=== PATIENT | female | born 1945 | race Caucasian/White ===

== ENCOUNTER → 2017-10-15 14:00 | Outpatient (CLI) | payer MEDICARE, BC, SELFPAY ==
[2017-10-15 17:34] LABS: Absolute Lymphocyte Count 2.56 X10^3/ul (0.83-4.51); Absolute Neutrophil Count 7.6 X10^3/uL (2.0-7.7); Basophil# 0.02 X10^3/uL; Basophil% 0.2 % (0-1); Eosinophil# 0.27 X10^3/uL; Eosinophils% 2.4 % (0-5); Hematocrit 40.5 % (37-47); Hemoglobin 13.1 g/dl (12.0-15.0); Lymphocyte # 2.56 X10^3/ul (4.0); Lymphocyte % 22.6 % (19-41); Mean Corp Hgb Conc 32.3 g/gl (32-36); Mean Corpuscular Hgb 30.8 pg (27.0-32.0); Mean Corpuscular Volume 95.3 fL (81-99); Mean Platelet Vol. 10.9 fl (6.2-12.0); Monocyte# 0.87 X10^3/uL; Monocyte% 7.7 % (0-10); Neutrophil # 7.58 X10^3/uL (2.7-7.7); Neutrophil % 66.7 % (47-70); Platelet Count 285 K/mm3 (150-450); RBC Distribution Width CV 14.5 % (11.6-14.6); Red Blood Count 4.25 M/mm3 (4.2-5.4); White Blood Count 11.3 K/mm3 (4.4-11.0)
[2017-10-15 17:35] LABS: POSITIVE COUNT NO; POSITIVE DIFFERENTIAL NO; POSITIVE MORPHOLOGY NO
[2017-10-15 17:59] LABS: ALB/GLOB Ratio 0.9 RATIO (0.9-2.4); AST(SGOT) 18 U/L (15-37); Alanine Aminotransfer ALT/SGPT 33 U/L (13-56); Albumin, Serum 3.5 g/dL (3.2-5.0); Alkaline Phosphatase 69 U/L (45-117); Anion Gap 8 (5-15); BUN 10 mg/dL (7-18); BUN/Creat Ratio 12.4 RATIO (10-20); Calcium,Total 8.5 mg/dL (8.5-10.1); Chloride 101 mmol/L (98-107); Creatinine, Serum 0.81 mg/dL (0.55-1.02); EST Glomerular Filtration Rate 74 mL/min (>60); Est Glom Filt Rate - Afr Amer 90 mL/min (>60); Globulin 4.1 g/dL (2.2-4.2); Glucose 81 mg/dL (74-106); Potassium 4.1 mmol/L (3.5-5.1); Protein, Total 7.6 g/dL (6.4-8.2); Sodium Level 133 mmol/L (136-145)
[2017-10-16 10:08] LABS: Vitamin D,25 Hydroxy 15.5 ng/mL (29.95-100.01)
== END ==
PROVIDERS: Family Provider Family Medicine Geriatric Medicine; PCP Family Medicine Geriatric Medicine; Visit Provider Family Medicine Geriatric Medicine
DX: E55.9 Vitamin D deficiency, unspecified (principal); R53.83 Other fatigue
CPT/HCPCS: 36415; 80053; 82306; 84443; 85025

== ENCOUNTER → 2017-11-03 15:14 | Outpatient (CLI) | payer MEDICARE, BC, SELFPAY | PROVIDERS: Family Provider Family Medicine Geriatric Medicine; PCP Family Medicine Geriatric Medicine; Visit Provider Family Medicine Geriatric Medicine | DX: R68.83 Chills (without fever) (principal) | CPT/HCPCS: 87633 ==

== ENCOUNTER → 2018-01-06 15:02 | Outpatient (CLI) | payer MEDICARE, BC, SELFPAY ==
--- NOTE | 2018-01-06 15:15 | RAD_ITS ---
STUDY: X-RAY - LUMBAR SPINE REASON FOR EXAM: Female, 72 years old. Chronic back pain. History of osteoporosis and prior vertebroplasty. TECHNIQUE: 3 view(s) of the lumbar spine were obtained. COMPARISON: Comparison is made with prior examination dated November 04, 2016. FINDINGS: Normal lumbar lordosis. There is no substantial scoliosis. There is a normal alignment of the vertebrae. There is generalized demineralization of the vertebral bodies. Once again, multilevel kyphoplasty is seen. Stable loss of height of the superior endplate of the L2 vertebrae. Since prior study, vertebroplasty has been performed in several lower thoracic vertebrae. There is atherosclerotic calcification of the abdominal aorta without a demonstrated aneurysm. RAD/Lumbar Spine 2 or 3 Views IMPRESSION: Multilevel vertebroplasty with loss of height of several thoracic and lumbar vertebrae. Electronically Signed: Leonides Manriquez MD at 10:29 EDT Tel [phone], Service support ,
== END ==
PROVIDERS: Family Provider Family Medicine Geriatric Medicine; PCP Family Medicine Geriatric Medicine; Referring Provider Family Medicine Geriatric Medicine; Visit Provider Family Medicine Geriatric Medicine
DX: M54.5 Low back pain (principal); N39.0 Urinary tract infection, site not specified
CPT/HCPCS: 72100; 87086; 87088

== ENCOUNTER → 2018-06-21 15:27 | Outpatient (CLI) | payer MEDICARE, BC, SELFPAY | PROVIDERS: Family Provider Family Medicine Geriatric Medicine; PCP Family Medicine Geriatric Medicine; Visit Provider Family Medicine Geriatric Medicine | DX: L03.119 Cellulitis of unspecified part of limb (principal); B95.62 Methicillin resistant Staphylococcus aureus infection as the cause of diseases classified elsewhere | CPT/HCPCS: 87070; 87205 ==

== ENCOUNTER → 2018-07-15 | Outpatient (CLI) | payer MEDICARE, BC, SELFPAY ==
[2018-07-09 10:30] VITALS: BMI 33.0
[2018-07-15 12:29] LABS: Absolute Lymphocyte Count 2.29 X10^3/ul (0.83-4.51); Absolute Neutrophil Count 6.7 X10^3/uL (2.0-7.7); Basophil# 0.05 X10^3/uL; Basophil% 0.5 % (0-1); Eosinophils% 4.7 % (0-5); Hematocrit 38.4 % (37-47); Hemoglobin 12.5 g/dl (12.0-15.0); Lymphocyte # 2.29 X10^3/ul (4.0); Lymphocyte % 21.5 % (19-41); Mean Corp Hgb Conc 32.6 g/gl (32-36); Mean Corpuscular Hgb 30.2 pg (27.0-32.0); Mean Corpuscular Volume 92.8 fL (81-99); Mean Platelet Vol. 10.8 fl (6.2-12.0); Monocyte# 1.06 X10^3/uL; Monocyte% 9.9 % (0-10); Neutrophil % 62.8 % (47-70); Platelet Count 318 K/mm3 (150-450); RBC Distribution Width CV 15.1 % (11.6-14.6); RBC Distribution Width SD 49.3 fl (35.1-43.9); Red Blood Count 4.14 M/mm3 (4.2-5.4); White Blood Count 10.7 K/mm3 (4.4-11.0)
[2018-07-15 12:32] LABS: POSITIVE COUNT NO; POSITIVE DIFFERENTIAL NO; POSITIVE MORPHOLOGY NO
[2018-07-15 12:47] LABS: Vitamin D,25 Hydroxy 18.1 ng/mL (29.95-100.01)
[2018-07-15 12:52] LABS: ALB/GLOB Ratio 1.1 RATIO (0.9-2.4); AST(SGOT) 21 U/L (15-37); Alanine Aminotransfer ALT/SGPT 33 U/L (13-56); Albumin, Serum 3.8 g/dL (3.2-5.0); Alkaline Phosphatase 67 U/L (45-117); Anion Gap 6 (5-15); BUN 10 mg/dL (7-18); BUN/Creat Ratio 14.5 RATIO (10-20); Calcium,Total 8.8 mg/dL (8.5-10.1); Chloride 101 mmol/L (98-107); Creatinine, Serum 0.69 mg/dL (0.55-1.02); EST Glomerular Filtration Rate 89 mL/min (>60); Est Glom Filt Rate - Afr Amer 107 mL/min (>60); Globulin 3.5 g/dL (2.2-4.2); Glucose 92 mg/dL (74-106); Potassium 3.9 mmol/L (3.5-5.1); Protein, Total 7.3 g/dL (6.4-8.2); Sodium Level 135 mmol/L (136-145); Thyroid Stim Hormone (TSH) 0.96 uIU/mL (0.358-3.74)
== END | disposition home or self-care (01) ==
LOC: POLAB3 11:23
PROVIDERS: Family Provider Family Medicine Geriatric Medicine; PCP Family Medicine Geriatric Medicine; Visit Provider Family Medicine Geriatric Medicine
DX: E55.9 Vitamin D deficiency, unspecified (principal); R53.83 Other fatigue
CPT/HCPCS: 36415; 80053; 82306; 84443; 85025

== ENCOUNTER 2018-07-16 10:00 | Outpatient (RCR) | payer MEDICARE, BC, SELFPAY ==
[2018-07-02 10:34] VITALS: BP 127/89; PULSE 101; RESP 18; TEMP 37.2; BMI 33.0
--- NOTE | 2018-07-02 11:20 | HP.PCM_ITS ---
(1) Factor 5 Leiden mutation, heterozygous Status: Acute Current Visit: Yes Code(s): D68.51 - Activated protein C resistance (2) Nonhealing nonsurgical wound with fat layer exposed Status: Acute Current Visit: Yes Code(s): T14.8XXA - Other injury of unspecified body region, initial encounter (3) Traumatic open wound of left lower leg with delayed healing Status: Acute Current Visit: Yes Code(s): S81.802D - Unspecified open wound, left lower leg, subsequent encounter History of Present Illness Date of Service: 07/02/18 Chief Complaint: Follow-up of a traumatic left lower leg wound nonhealing since June 07. 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 He is on warfarin for factor V and DVTs. She was seen by Dr. Pete and he gave her IV antibiotics after cultures were negative for MRSA and she is now currently taking 2 antibiotics and using povidone iodine on the wound. Patient denies pain or infection skin around the area looks good. Past Medical History Past Medical History: Chronic Problems (Last Updated 08/06/17 @ 08:44 by Corrina Kiser) HLD (hyperlipidemia) (Chronic) Borderline diabetes (Chronic) Obesity (Chronic) DM2 (diabetes mellitus, type 2) (Chronic) Depression (Chronic) Past Medical History: Traumatic wound left lateral lower leg Surgical History: appendectomy, hysterectomy, - - Kyphoplasty plasty and vertebroplasty from osteoporosis Allergies/Adverse Reactions: Allergies castor oil Allergy (Verified 12/17/16 12:02) Unknown frovatriptan succinate [From Frova] Allergy (Verified 12/17/16 12:02) Rash sumatriptan [From Imitrex] Allergy (Verified 12/17/16 12:02) Rash sumatriptan succinate [From Imitrex] Allergy (Verified 12/17/16 12:02) Rash vitamin E (d-alpha tocopherol) Allergy (Verified 07/02/18 10:38) Chest tightness VITAMIN E IV SOLUTION IVP DYE Allergy (Uncoded 12/17/16 12:02) Vomiting Home Medications: Ambulatory Orders Medication Instructions Recorded Clonazepam 0.5 mg PO QHS 10/13/13 Ergocalciferol [Vitamin D] 50,000 unit PO QMONTH 10/13/13 Vitamin B Complex 1 each PO DAILY 10/13/13 Vitamin E 400 units PO DAILY 10/13/13 Warfarin [Coumadin] 4.5 mg PO QODAY 10/13/13 Warfarin [Coumadin] 5 mg PO QODAY 10/13/13 proMETHazine tablet [Phenergan] 25 mg PO Q8H PRN PRN 12/17/16 Lives: Alone Smoking Status: Former smoker Tobacco Use: Non-smoker Alcohol: None Drugs: None Review of Systems Constitutional: Denies: Chills, Fever Eyes: Denies: Blurred vision, Drainage, Pain HEENT: Denies: Difficulty Hearing, Difficulty Swallowing, Sore Throat, Visual Changes Cardiovascular: Denies: Chest Pain, Palpitations, Syncope Respiratory: Denies: Cough, Shortness of Breath Gastrointestinal: Denies: Abdominal Pain, Nausea, Vomiting Genitourinary: Denies: Dysuria, Frequency Musculoskeletal: Denies: Joint Pain, Muscle pain Skin: Reports: Wounds - Open wound left lateral lower leg. Denies: Jaundice, Rash Neurological: Denies: Balance problems, Change in Speech, Difficulty swallowing, Focal weakness Psychiatric: Denies: Anxiety, Depression Endocrine: Denies: Change in Body Habitus Hematologic/ Lymphatic: Denies: Adenopathy - Physical Exam Vital Signs Temp Pulse Resp BP 98.9 F 101 H 18 127/89 H 07/02/18 10:34 07/02/18 10:34 07/02/18 10:34 07/02/18 10:34 General: Oriented x3, Cooperative, Well developed HEENT: Atraumatic, PERRLA Oral: Moist Mucosa Neck: Supple, No JVD Lungs: Clear to auscultation, Normal air movement Cardiovascular: Regular rate, Regular Rhythm Abdomen: Bowel Sounds Present, Soft, Non Tender, No Hepato-splenomegaly Extremities: No clubbing, No edema, - - Open wound left lateral lower leg Wound Measurements and Assessment WC - Nurse 1 - General Ulcer Measurement Start: 07/02/18 10:34 Freq: Status: Active Protocol: Activity Type Activity Date Activity User E-Sign Co-Sign Detail Recorded Client Recorded Date Recorded By Document 07/02/18 10:34 [facility] [id number] 07/02/18 10:42 [facility] 07/02/18 10:34 Wound Center Nurse 1 [Ulcer Assessment] #1- LT LAT LE -Combined with other wound No -Current Size (cm) - Length 2 -Current Size (cm) - Width 1.6 -Current Size (cm) - Depth 0.1 -Total Square Cm 3.2 -Date of Last Picture (Recall this 07/02/18 field) -Photo Taken Yes -Epithelialization None Present -Tunneling No -Undermining/Tunneling No -Circular Undermining No -Classification - Thickness Full Thickness without Exposed Support Structure -Exudate Amt Small -Exudate Type Serosanguineous -Wound Margin Flat & Intact -Granulation Amt Small (1-33%) -Granulation Quality Red -Slough/Fibrin Yes -Necrosis Amt Large (67-100%) -Necrotic Tissue Type Adherent Slough -Texture (So-wound Skin Appearance) Assessed Scarring -Moisture (So-wound Skin Appearance Assessed ) -Color (So-wound Skin Appearance) Assessed Erythema -Temperature (So-wound Skin No Abnormality Appearance) (Pt Warm) -Tenderness on Palpation (So-wound No Skin Appearance) -Ulcer Cleansing Rinsed/ Irrigated with Saline -Foul Odor after Cleansing No -Anesthetic Used 5% Lidocaine Gel [Edema Assessment] -Lower Limb Edema Present Yes -Right Calf (cm) 36 -Right Ankle (cm) 19.5 -Left Calf (cm) 35 -Left Ankle (cm) 19.2 WC - Nurse 2 - General Ulcer CM Notes Start: 07/02/18 10:34 Freq: Status: Active Protocol: Activity Type Activity Date Activity User E-Sign Co-Sign Detail Recorded Client Recorded Date Recorded By Document 07/02/18 10:56 MW [id number] 07/02/18 11:00 MW 07/02/18 10:56 Wound Center Nurse 2 [Procedure/Treatment] #1- LT LAT LE -Time 10:57 -Correct Patient Yes -Correct Side, Site, Position Yes -Correct Procedure Yes -Procedure Performed Yes -Type of Procedure Debridement -Clinical Debridement Subcutaneous -Post Debridement Size (cm) - Length 2.0 -Post Debridement Size (cm) - Width 1.5 -Post Debridement Size (cm) - Depth 0.2 -Total Square Cm 3.00 -Wound/Ulcer Outcome Not Healed -Ulcer Cleansing Rinsed/ Irrigated with Saline -Foul Odor after Cleansing No -Bioengineered Tissue No -Bleeding Controlled with Pressure -Offloading No -Treatment Response Procedure Tolerated Well [See Physician Procedure note for Specifics] Pain Scale: 0-10 Numeric [Pain] -Is Patient Pain Free? Yes Musculoskeletal: No Tenderness to Palpation of Joints or Extremities Lymphatic: No Cervical, Supraclavicular, or Inguinal Adenopathy Neurological: Cranial nerves II-XII grossly intact, Neuro grossly intact Psych/Mental Status: Normal Affect, Appropriate, Alert and oriented to time, place, person, mood and affect Debridement Note Post-Debridement Measurements/Treatment WC - Nurse 2 - General Ulcer CM Notes Start: 07/02/18 10:34 Freq: Status: Active Protocol: Activity Type Activity Date Activity User E-Sign Co-Sign Detail Recorded Client Recorded Date Recorded By Document 07/02/18 10:56 MW [id number] 07/02/18 11:00 MW 07/02/18 10:56 Wound Center Nurse 2 #1- LT LAT LE -Time 10:57 -Correct Patient Yes -Correct Side, Site, Position Yes -Correct Procedure Yes -Procedure Performed Yes -Type of Procedure Debridement -Clinical Debridement Subcutaneous -Post Debridement Size (cm) - Length 2.0 -Post Debridement Size (cm) - Width 1.5 -Post Debridement Size (cm) - Depth 0.2 -Total Square Cm 3.00 -Wound/Ulcer Outcome Not Healed -Ulcer Cleansing Rinsed/ Irrigated with Saline -Foul Odor after Cleansing No -Bioengineered Tissue No -Bleeding Controlled with Pressure -Offloading No -Treatment Response Procedure Tolerated Well Pain Scale: 0-10 Numeric Is Patient Pain Free? Yes Wound debrided: Left lateral lower leg Type of Debridement: Excisional debridement Anesthesia Used: 4% Lidocaine Solution Depth: Down to and including healthy tissue, in the subcutaneous layer Percentage of wound debrided: 100 Instrument Used: 5mm curette Tissue Removed: Devitalized tissue and slough Severity: Limited To Skin Breakdown Amount of bleeding with debridement: Mild Bleeding Controlled with: Compression and gauze Patient tolerated procedure well Assessment/Plan Active Problems (Last Updated 08/06/17 @ 08:44 by Corrina Kiser) Factor 5 Leiden mutation, heterozygous (Acute) Nonhealing nonsurgical wound with fat layer exposed (Acute) Traumatic open wound of left lower leg with delayed healing (Acute) Assessment: Nonhealing traumatic left lower leg wound. Factor V. Long-term Coumadin. Osteoporosis Plan: Wash leg with Hibiclens and wound. Apply Nehal to the wound base cover with Adaptic gauze and tape daily. Double layer Tubigrip to the left leg. Follow-up in 1 week
[2018-07-09 10:30] VITALS: BP 148/96; PULSE 77; RESP 16; TEMP 36.5; BMI 33.0
--- NOTE | 2018-07-09 11:26 | PCM.WC.PN ---
(1) Factor 5 Leiden mutation, heterozygous Status: Acute Current Visit: Yes Code(s): D68.51 - Activated protein C resistance (2) Nonhealing nonsurgical wound with fat layer exposed Status: Acute Current Visit: Yes Code(s): T14.8XXA - Other injury of unspecified body region, initial encounter (3) Traumatic open wound of left lower leg with delayed healing Status: Acute Current Visit: Yes Code(s): S81.802D - Unspecified open wound, left lower leg, subsequent encounter (4) Edema of left lower leg due to peripheral venous insufficiency Status: Acute Current Visit: Yes Code(s): I87.2 - Venous insufficiency (chronic) (peripheral); R60.0 - Localized edema (5) Ulcer of right medial lower extremity, limited to breakdown of skin Status: Acute Current Visit: Yes Code(s): L97.811 - Non-pressure chronic ulcer of other part of right lower leg limited to breakdown of skin Type of Wound Chief Complaint: Follow-up of a traumatic left lower leg wound nonhealing since June 07. 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 He is on warfarin for factor V and DVTs. She was seen by Dr. Pete and he gave her IV antibiotics after cultures were negative for MRSA and she is now currently taking 2 antibiotics and using povidone iodine on the wound. Patient denies pain or infection skin around the area looks good. Progress of Wound: The wound is smaller this week and no signs of infection she did complain of increase in pain over the last 2 days. Will add double layer Tubigrip to the left lower leg for more support. We did apply for epi-fix. - Physical Exam Vital Signs Temp Pulse Resp BP 97.7 F L 77 16 148/96 H 07/09/18 10:30 07/09/18 10:30 07/09/18 10:30 07/09/18 10:30 General: Oriented x3, Cooperative, Well developed HEENT: Atraumatic, PERRLA Oral: Moist Mucosa Neck: Supple, No JVD Lungs: Clear to auscultation, Normal air movement Cardiovascular: Regular rate, Regular Rhythm Abdomen: Bowel Sounds Present, Soft, Non Tender, No Hepato-splenomegaly Extremities: No clubbing, Edema Skin: Ulcer/ Wound - Left lower leg ulcer Wound Measurements and Assessment WC - Nurse 1 - General Ulcer Measurement Start: 07/02/18 10:34 Freq: Status: Active Protocol: Activity Type Activity Date Activity User E-Sign Co-Sign Detail Recorded Client Recorded Date Recorded By Document 07/09/18 10:30 BMF [id number] 07/09/18 10:36 BM[facility] 07/09/18 10:30 Wound Center Nurse 1 [Ulcer Assessment] #1- LT LAT LE -Combined with other wound No -Current Size (cm) - Length 1.7 -Current Size (cm) - Width 1.3 -Current Size (cm) - Depth 0.1 -Total Square Cm 2.21 -Photo Taken No -Epithelialization Small 1-33% -Tunneling No -Undermining/Tunneling No -Circular Undermining No -Exudate Amt Small -Exudate Type Serous -Wound Margin Flat & Intact -Granulation Amt Small (1-33%) -Granulation Quality Red -Slough/Fibrin Yes -Necrosis Amt Medium (34-66%) -Necrotic Tissue Type Adherent Slough -Texture (So-wound Skin Appearance) Assessed Scarring -Moisture (So-wound Skin Appearance Assessed ) Dry/Scaly -Color (So-wound Skin Appearance) Assessed Erythema -Temperature (So-wound Skin No Abnormality Appearance) (Pt Warm) -Tenderness on Palpation (So-wound No Skin Appearance) -Ulcer Cleansing Rinsed/ Irrigated with Saline -Foul Odor after Cleansing No -Anesthetic Used 5% Lidocaine Gel [Edema Assessment] -Lower Limb Edema Present Yes -Left Calf (cm) 34 -Left Ankle (cm) 18.7 WC - Nurse 2 - General Ulcer CM Notes Start: 07/02/18 10:34 Freq: Status: Active Protocol: Activity Type Activity Date Activity User E-Sign Co-Sign Detail Recorded Client Recorded Date Recorded By Document 07/09/18 10:56 MW [id number] 07/09/18 10:59 MW 07/09/18 10:56 Wound Center Nurse 2 [Procedure/Treatment] #1- LT LAT LE -Time 10:56 -Correct Patient Yes -Correct Side, Site, Position Yes -Correct Procedure Yes -Procedure Performed Yes -Type of Procedure Debridement -Clinical Debridement Subcutaneous -Post Debridement Size (cm) - Length 1.5 -Post Debridement Size (cm) - Width 1.0 -Post Debridement Size (cm) - Depth 0.2 -Total Square Cm 1.50 -Wound/Ulcer Outcome Not Healed -Ulcer Cleansing Rinsed/ Irrigated with Saline -Foul Odor after Cleansing No -Bioengineered Tissue No -Bleeding Controlled with Pressure -Offloading No -Treatment Response Procedure Tolerated Well [See Physician Procedure note for Specifics] Pain Scale: 0-10 Numeric [Pain] -Is Patient Pain Free? Yes Musculoskeletal: No Tenderness to Palpation of Joints or Extremities Lymphatic: No Cervical, Supraclavicular, or Inguinal Adenopathy Neurological: Cranial nerves II-XII grossly intact, Neuro grossly intact Psych/Mental Status: Normal Affect, Appropriate Debridement Note Post-Debridement Measurements/Treatment WC - Nurse 2 - General Ulcer CM Notes Start: 07/02/18 10:34 Freq: Status: Active Protocol: Activity Type Activity Date Activity User E-Sign Co-Sign Detail Recorded Client Recorded Date Recorded By Document 07/02/18 10:56 MW [id number] 07/02/18 11:00 MW Document 07/09/18 10:56 MW [id number] 07/09/18 10:59 MW 07/02/18 07/09/18 10:56 10:56 Wound Center Nurse 2 #1- LT LAT LE -Time 10:57 10:56 -Correct Patient Yes Yes -Correct Side, Site, Position Yes Yes -Correct Procedure Yes Yes -Procedure Performed Yes Yes -Type of Procedure Debridement Debridement -Clinical Debridement Subcutaneous Subcutaneous -Post Debridement Size (cm) - Length 2.0 1.5 -Post Debridement Size (cm) - Width 1.5 1.0 -Post Debridement Size (cm) - Depth 0.2 0.2 -Total Square Cm 3.00 1.50 -Wound/Ulcer Outcome Not Healed Not Healed -Ulcer Cleansing Rinsed/ Rinsed/ Irrigated with Irrigated with Saline Saline -Foul Odor after Cleansing No No -Bioengineered Tissue No No -Bleeding Controlled with Pressure Pressure -Offloading No No -Treatment Response Procedure Procedure Tolerated Well Tolerated Well Pain Scale: 0-10 Numeric Is Patient Pain Free? Yes Yes Wound debrided: Of lower leg ulcer Type of Debridement: Excisional debridement Anesthesia Used: 5% Lidocaine Gel Depth: Down to and including healthy tissue, in the subcutaneous layer Percentage of wound debrided: 100 Instrument Used: 5mm curette, #10 blade Tissue Removed: Slough and devitalized tissue Severity: Limited To Skin Breakdown Amount of bleeding with debridement: Mild Bleeding Controlled with: Compression and gauze Patient tolerated procedure well Assessment/Plan Active Problems (Last Updated 08/06/17 @ 08:44 by Corrina Kiser) Factor 5 Leiden mutation, heterozygous (Acute) Nonhealing nonsurgical wound with fat layer exposed (Acute) Traumatic open wound of left lower leg with delayed healing (Acute) Edema of left lower leg due to peripheral venous insufficiency (Acute) Ulcer of right medial lower extremity, limited to breakdown of skin (Acute) Assessment: Nonhealing traumatic left lower leg wound. Factor V. Long-term Coumadin. Osteoporosis Plan: Wash leg with Hibiclens and wound. Apply Nehal to the wound base cover with Adaptic gauze and tape daily. Double layer Tubigrip to the left leg. Follow-up in 1 week
--- NOTE | 2018-07-09 11:30 | PN.PCM_ITS ---
(1) Factor 5 Leiden mutation, heterozygous Status: Acute Current Visit: Yes Code(s): D68.51 - Activated protein C resistance (2) Nonhealing nonsurgical wound with fat layer exposed Status: Acute Current Visit: Yes Code(s): T14.8XXA - Other injury of unspecified body region, initial encounter (3) Traumatic open wound of left lower leg with delayed healing Status: Acute Current Visit: Yes Code(s): S81.802D - Unspecified open wound, left lower leg, subsequent encounter (4) Edema of left lower leg due to peripheral venous insufficiency Status: Acute Current Visit: Yes Code(s): I87.2 - Venous insufficiency (chronic) (peripheral); R60.0 - Localized edema (5) Ulcer of right medial lower extremity, limited to breakdown of skin Status: Acute Current Visit: Yes Code(s): L97.811 - Non-pressure chronic ulcer of other part of right lower leg limited to breakdown of skin Type of Wound Chief Complaint: Follow-up of a traumatic left lower leg wound nonhealing since June 07. 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 He is on warfarin for factor V and DVTs. She was seen by Dr. Pete and he gave her IV antibiotics after cultures were negative for MRSA and she is now currently taking 2 antibiotics and using povidone iodine on the wound. Patient denies pain or infection skin around the area looks good. Progress of Wound: The wound is smaller this week and no signs of infection she did complain of increase in pain over the last 2 days. Will add double layer Tubigrip to the left lower leg for more support. We did apply for epi-fix. - Physical Exam Vital Signs Temp Pulse Resp BP 97.7 F L 77 16 148/96 H 07/09/18 10:30 07/09/18 10:30 07/09/18 10:30 07/09/18 10:30 General: Oriented x3, Cooperative, Well developed HEENT: Atraumatic, PERRLA Oral: Moist Mucosa Neck: Supple, No JVD Lungs: Clear to auscultation, Normal air movement Cardiovascular: Regular rate, Regular Rhythm Abdomen: Bowel Sounds Present, Soft, Non Tender, No Hepato-splenomegaly Extremities: No clubbing, Edema Skin: Ulcer/ Wound - Left lower leg ulcer Wound Measurements and Assessment WC - Nurse 1 - General Ulcer Measurement Start: 07/02/18 10:34 Freq: Status: Active Protocol: Activity Type Activity Date Activity User E-Sign Co-Sign Detail Recorded Client Recorded Date Recorded By Document 07/09/18 10:30 BMF [id number] 07/09/18 10:36 BMF 07/09/18 10:30 Wound Center Nurse 1 [Ulcer Assessment] #1- LT LAT LE -Combined with other wound No -Current Size (cm) - Length 1.7 -Current Size (cm) - Width 1.3 -Current Size (cm) - Depth 0.1 -Total Square Cm 2.21 -Photo Taken No -Epithelialization Small 1-33% -Tunneling No -Undermining/Tunneling No -Circular Undermining No -Exudate Amt Small -Exudate Type Serous -Wound Margin Flat & Intact -Granulation Amt Small (1-33%) -Granulation Quality Red -Slough/Fibrin Yes -Necrosis Amt Medium (34-66%) -Necrotic Tissue Type Adherent Slough -Texture (So-wound Skin Appearance) Assessed Scarring -Moisture (So-wound Skin Appearance Assessed ) Dry/Scaly -Color (So-wound Skin Appearance) Assessed Erythema -Temperature (So-wound Skin No Abnormality Appearance) (Pt Warm) -Tenderness on Palpation (So-wound No Skin Appearance) -Ulcer Cleansing Rinsed/ Irrigated with Saline -Foul Odor after Cleansing No -Anesthetic Used 5% Lidocaine Gel [Edema Assessment] -Lower Limb Edema Present Yes -Left Calf (cm) 34 -Left Ankle (cm) 18.7 WC - Nurse 2 - General Ulcer CM Notes Start: 07/02/18 10:34 Freq: Status: Active Protocol: Activity Type Activity Date Activity User E-Sign Co-Sign Detail Recorded Client Recorded Date Recorded By Document 07/09/18 10:56 MW [id number] 07/09/18 10:59 MW 07/09/18 10:56 Wound Center Nurse 2 [Procedure/Treatment] #1- LT LAT LE -Time 10:56 -Correct Patient Yes -Correct Side, Site, Position Yes -Correct Procedure Yes -Procedure Performed Yes -Type of Procedure Debridement -Clinical Debridement Subcutaneous -Post Debridement Size (cm) - Length 1.5 -Post Debridement Size (cm) - Width 1.0 -Post Debridement Size (cm) - Depth 0.2 -Total Square Cm 1.50 -Wound/Ulcer Outcome Not Healed -Ulcer Cleansing Rinsed/ Irrigated with Saline -Foul Odor after Cleansing No -Bioengineered Tissue No -Bleeding Controlled with Pressure -Offloading No -Treatment Response Procedure Tolerated Well [See Physician Procedure note for Specifics] Pain Scale: 0-10 Numeric [Pain] -Is Patient Pain Free? Yes Musculoskeletal: No Tenderness to Palpation of Joints or Extremities Lymphatic: No Cervical, Supraclavicular, or Inguinal Adenopathy Neurological: Cranial nerves II-XII grossly intact, Neuro grossly intact Psych/Mental Status: Normal Affect, Appropriate Debridement Note Post-Debridement Measurements/Treatment WC - Nurse 2 - General Ulcer CM Notes Start: 07/02/18 10:34 Freq: Status: Active Protocol: Activity Type Activity Date Activity User E-Sign Co-Sign Detail Recorded Client Recorded Date Recorded By Document 07/02/18 10:56 MW [id number] 07/02/18 11:00 MW Document 07/09/18 10:56 MW [id number] 07/09/18 10:59 MW 07/02/18 07/09/18 10:56 10:56 Wound Center Nurse 2 #1- LT LAT LE -Time 10:57 10:56 -Correct Patient Yes Yes -Correct Side, Site, Position Yes Yes -Correct Procedure Yes Yes -Procedure Performed Yes Yes -Type of Procedure Debridement Debridement -Clinical Debridement Subcutaneous Subcutaneous -Post Debridement Size (cm) - Length 2.0 1.5 -Post Debridement Size (cm) - Width 1.5 1.0 -Post Debridement Size (cm) - Depth 0.2 0.2 -Total Square Cm 3.00 1.50 -Wound/Ulcer Outcome Not Healed Not Healed -Ulcer Cleansing Rinsed/ Rinsed/ Irrigated with Irrigated with Saline Saline -Foul Odor after Cleansing No No -Bioengineered Tissue No No -Bleeding Controlled with Pressure Pressure -Offloading No No -Treatment Response Procedure Procedure Tolerated Well Tolerated Well Pain Scale: 0-10 Numeric Is Patient Pain Free? Yes Yes Wound debrided: Of lower leg ulcer Type of Debridement: Excisional debridement Anesthesia Used: 5% Lidocaine Gel Depth: Down to and including healthy tissue, in the subcutaneous layer Percentage of wound debrided: 100 Instrument Used: 5mm curette, #10 blade Tissue Removed: Slough and devitalized tissue Severity: Limited To Skin Breakdown Amount of bleeding with debridement: Mild Bleeding Controlled with: Compression and gauze Patient tolerated procedure well Assessment/Plan Active Problems (Last Updated 08/06/17 @ 08:44 by Corrina Kiser) Factor 5 Leiden mutation, heterozygous (Acute) Nonhealing nonsurgical wound with fat layer exposed (Acute) Traumatic open wound of left lower leg with delayed healing (Acute) Edema of left lower leg due to peripheral venous insufficiency (Acute) Ulcer of right medial lower extremity, limited to breakdown of skin (Acute) Assessment: Nonhealing traumatic left lower leg wound. Factor V. Long-term Coumadin. Osteoporosis Plan: Wash leg with Hibiclens and wound. Apply Nehal to the wound base cover with Adaptic gauze and tape daily. Double layer Tubigrip to the left leg. Follow-up in 1 week
[2018-07-16 10:28] VITALS: BP 158/67; PULSE 73; RESP 18; TEMP 37; BMI 33.0
--- NOTE | 2018-07-16 11:13 | PCM.WC.PN ---
(1) Factor 5 Leiden mutation, heterozygous Status: Chronic Current Visit: Yes Code(s): D68.51 - Activated protein C resistance (2) Nonhealing nonsurgical wound with fat layer exposed Status: Acute Current Visit: Yes Code(s): T14.8XXA - Other injury of unspecified body region, initial encounter (3) Traumatic open wound of left lower leg with delayed healing Status: Acute Current Visit: Yes Code(s): S81.802D - Unspecified open wound, left lower leg, subsequent encounter (4) Edema of left lower leg due to peripheral venous insufficiency Status: Acute Current Visit: Yes Code(s): I87.2 - Venous insufficiency (chronic) (peripheral); R60.0 - Localized edema (5) Ulcer of right medial lower extremity, limited to breakdown of skin Status: Acute Current Visit: Yes Code(s): L97.811 - Non-pressure chronic ulcer of other part of right lower leg limited to breakdown of skin Type of Wound Chief Complaint: Follow-up of a traumatic left lower leg wound nonhealing since June 07. 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 He is on warfarin for factor V and DVTs. She was seen by Dr. Pete and he gave her IV antibiotics after cultures were negative for MRSA and she is now currently taking 2 antibiotics and using povidone iodine on the wound. Patient denies pain or infection skin around the area looks good. Progress of Wound: The wound is smaller this week and no signs of infection she did complain of increase in pain over the last 2 days. Will add double layer Tubigrip to the left lower leg for more support. We applied #1 epi-fix. - Physical Exam Vital Signs Temp Pulse Resp BP 98.6 F 73 18 158/67 H 07/16/18 10:28 07/16/18 10:28 07/16/18 10:28 07/16/18 10:28 General: Oriented x3, Cooperative, Well developed HEENT: Atraumatic, PERRLA Oral: Moist Mucosa Neck: Supple, No JVD Lungs: Clear to auscultation, Normal air movement Cardiovascular: Regular rate, Regular Rhythm Abdomen: Bowel Sounds Present, Soft, Non Tender, No Hepato-splenomegaly Extremities: No clubbing, No edema Skin: - - Left lower leg ulcer from trauma Wound Measurements and Assessment WC - Nurse 1 - General Ulcer Measurement Start: 07/02/18 10:34 Freq: Status: Active Protocol: Activity Type Activity Date Activity User E-Sign Co-Sign Detail Recorded Client Recorded Date Recorded By Document 07/16/18 10:28 DV [id number] 07/16/18 10:34 DV 07/16/18 10:28 Wound Center Nurse 1 [Ulcer Assessment] #1- LT LAT LE -Combined with other wound No -Current Size (cm) - Length 1.0 -Current Size (cm) - Width 0.7 -Current Size (cm) - Depth 0.1 -Total Square Cm 0.70 -Photo Taken No -Epithelialization Small 1-33% -Tunneling No -Undermining/Tunneling No -Circular Undermining No -Wound Margin Flat & Intact -Granulation Amt Small (1-33%) -Granulation Quality Pale [place] -Slough/Fibrin Yes -Necrosis Amt Medium (34-66%) -Necrotic Tissue Type Adherent Slough -Structure Exposed None/Limited to Skin Breakdown -Texture (So-wound Skin Appearance) Assessed Localized Edema Scarring -Moisture (So-wound Skin Appearance Assessed ) Dry/Scaly -Color (So-wound Skin Appearance) Assessed Hemosiderin Staining -Temperature (So-wound Skin No Abnormality Appearance) (Pt Warm) -Ulcer Cleansing Rinsed/ Irrigated with Saline -Foul Odor after Cleansing No -Anesthetic Used 4% Lidocaine Solution [Edema Assessment] -Lower Limb Edema Present No -Left Calf (cm) 34.0 -Left Ankle (cm) 19.8 WC - Nurse 2 - General Ulcer CM Notes Start: 07/02/18 10:34 Freq: Status: Active Protocol: Activity Type Activity Date Activity User E-Sign Co-Sign Detail Recorded Client Recorded Date Recorded By Document 07/16/18 10:52 MW [id number] 07/16/18 10:57 MW 07/16/18 10:52 Wound Center Nurse 2 [Procedure/Treatment] #1- LT LAT LE -Time 10:52 -Correct Patient Yes -Correct Side, Site, Position Yes -Correct Procedure Yes -Procedure Performed Yes -Type of Procedure Debridement -Clinical Debridement Subcutaneous -Post Debridement Size (cm) - Length 1.1 -Post Debridement Size (cm) - Width 0.9 -Post Debridement Size (cm) - Depth 0.1 -Total Square Cm 0.99 -Wound/Ulcer Outcome Not Healed -Ulcer Cleansing Rinsed/ Irrigated with Saline -Foul Odor after Cleansing No -Bioengineered Tissue Yes -Type of bioengineered Tissue EPIFIX -Expiration Date 12/21/22 -Product Lot Number [id number] -Percent Used 100 -Saline Lot Number [id number] -Bleeding Controlled with Pressure -Offloading No -Treatment Response Procedure Tolerated Well [See Physician Procedure note for Specifics] Pain Scale: 0-10 Numeric [Pain] -Is Patient Pain Free? Yes Musculoskeletal: No Tenderness to Palpation of Joints or Extremities Lymphatic: No Cervical, Supraclavicular, or Inguinal Adenopathy Neurological: Cranial nerves II-XII grossly intact, Neuro grossly intact Psych/Mental Status: Normal Affect, Appropriate Debridement Note Post-Debridement Measurements/Treatment WC - Nurse 2 - General Ulcer CM Notes Start: 07/02/18 10:34 Freq: Status: Active Protocol: Activity Type Activity Date Activity User E-Sign Co-Sign Detail Recorded Client Recorded Date Recorded By Document 07/02/18 10:56 MW [id number] 07/02/18 11:00 MW Document 07/09/18 10:56 MW [id number] 07/09/18 10:59 MW Document 07/16/18 10:52 MW [id number] 07/16/18 10:57 MW 07/02/18 07/09/18 07/16/18 10:56 10:56 10:52 Wound Center Nurse 2 #1- LT LAT LE -Time 10:57 10:56 10:52 -Correct Patient Yes Yes Yes -Correct Side, Site, Position Yes Yes Yes -Correct Procedure Yes Yes Yes -Procedure Performed Yes Yes Yes -Type of Procedure Debridement Debridement Debridement -Clinical Debridement Subcutaneous Subcutaneous Subcutaneous -Post Debridement Size (cm) - Length 2.0 1.5 1.1 -Post Debridement Size (cm) - Width 1.5 1.0 0.9 -Post Debridement Size (cm) - Depth 0.2 0.2 0.1 -Total Square Cm 3.00 1.50 0.99 -Wound/Ulcer Outcome Not Healed Not Healed Not Healed -Ulcer Cleansing Rinsed/ Rinsed/ Rinsed/ Irrigated with Irrigated with Irrigated with Saline Saline Saline -Foul Odor after Cleansing No No No -Bioengineered Tissue No No Yes -Type of bioengineered Tissue EPIFIX -Expiration Date 12/21/22 -Product Lot Number [id number] -Percent Used 100 -Saline Lot Number [id number] -Bleeding Controlled with Pressure Pressure Pressure -Offloading No No No -Treatment Response Procedure Procedure Procedure Tolerated Well Tolerated Well Tolerated Well Pain Scale: 0-10 Numeric Is Patient Pain Free? Yes Yes Yes Wound debrided: Left lateral lower leg Type of Debridement: Excisional debridement Anesthesia Used: 5% Lidocaine Gel Depth: Down to and including healthy tissue Instrument Used: 5mm curette Tissue Removed: Fibrin and some devitalized tissue Severity: Limited To Skin Breakdown Amount of bleeding with debridement: Mild Bleeding Controlled with: Compression and gauze Patient tolerated procedure well Assessment/Plan Active Problems (Last Updated 08/06/17 @ 08:44 by Corrina Kiser) Factor 5 Leiden mutation, heterozygous (Chronic) Nonhealing nonsurgical wound with fat layer exposed (Acute) Traumatic open wound of left lower leg with delayed healing (Acute) Edema of left lower leg due to peripheral venous insufficiency (Acute) Ulcer of right medial lower extremity, limited to breakdown of skin (Acute) Assessment: Nonhealing traumatic left lower leg wound. Factor V. Long-term Coumadin. Osteoporosis Plan: Epi fix #1 applied. Patient to leave dressing alone for 1 week. Double layer Tubigrip to the left leg. Follow-up in 1 week
--- NOTE | 2018-07-16 11:16 | PN.PCM_ITS ---
(1) Factor 5 Leiden mutation, heterozygous Status: Chronic Current Visit: Yes Code(s): D68.51 - Activated protein C resistance (2) Nonhealing nonsurgical wound with fat layer exposed Status: Acute Current Visit: Yes Code(s): T14.8XXA - Other injury of unspecified body region, initial encounter (3) Traumatic open wound of left lower leg with delayed healing Status: Acute Current Visit: Yes Code(s): S81.802D - Unspecified open wound, left lower leg, subsequent encounter (4) Edema of left lower leg due to peripheral venous insufficiency Status: Acute Current Visit: Yes Code(s): I87.2 - Venous insufficiency (chronic) (peripheral); R60.0 - Localized edema (5) Ulcer of right medial lower extremity, limited to breakdown of skin Status: Acute Current Visit: Yes Code(s): L97.811 - Non-pressure chronic ulcer of other part of right lower leg limited to breakdown of skin Type of Wound Chief Complaint: Follow-up of a traumatic left lower leg wound nonhealing since June 07. 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 He is on warfarin for factor V and DVTs. She was seen by Dr. Pete and he gave her IV antibiotics after cultures were negative for MRSA and she is now currently taking 2 antibiotics and using povidone iodine on the wound. Patient denies pain or infection skin around the area looks good. Progress of Wound: The wound is smaller this week and no signs of infection she did complain of increase in pain over the last 2 days. Will add double layer Tubigrip to the left lower leg for more support. We applied #1 epi-fix. - Physical Exam Vital Signs Temp Pulse Resp BP 98.6 F 73 18 158/67 H 07/16/18 10:28 07/16/18 10:28 07/16/18 10:28 07/16/18 10:28 General: Oriented x3, Cooperative, Well developed HEENT: Atraumatic, PERRLA Oral: Moist Mucosa Neck: Supple, No JVD Lungs: Clear to auscultation, Normal air movement Cardiovascular: Regular rate, Regular Rhythm Abdomen: Bowel Sounds Present, Soft, Non Tender, No Hepato-splenomegaly Extremities: No clubbing, No edema Skin: - - Left lower leg ulcer from trauma Wound Measurements and Assessment WC - Nurse 1 - General Ulcer Measurement Start: 07/02/18 10:34 Freq: Status: Active Protocol: Activity Type Activity Date Activity User E-Sign Co-Sign Detail Recorded Client Recorded Date Recorded By Document 07/16/18 10:28 DV [id number] 07/16/18 10:34 DV 07/16/18 10:28 Wound Center Nurse 1 [Ulcer Assessment] #1- LT LAT LE -Combined with other wound No -Current Size (cm) - Length 1.0 -Current Size (cm) - Width 0.7 -Current Size (cm) - Depth 0.1 -Total Square Cm 0.70 -Photo Taken No -Epithelialization Small 1-33% -Tunneling No -Undermining/Tunneling No -Circular Undermining No -Wound Margin Flat & Intact -Granulation Amt Small (1-33%) -Granulation Quality Pale [place] -Slough/Fibrin Yes -Necrosis Amt Medium (34-66%) -Necrotic Tissue Type Adherent Slough -Structure Exposed None/Limited to Skin Breakdown -Texture (So-wound Skin Appearance) Assessed Localized Edema Scarring -Moisture (So-wound Skin Appearance Assessed ) Dry/Scaly -Color (So-wound Skin Appearance) Assessed Hemosiderin Staining -Temperature (So-wound Skin No Abnormality Appearance) (Pt Warm) -Ulcer Cleansing Rinsed/ Irrigated with Saline -Foul Odor after Cleansing No -Anesthetic Used 4% Lidocaine Solution [Edema Assessment] -Lower Limb Edema Present No -Left Calf (cm) 34.0 -Left Ankle (cm) 19.8 WC - Nurse 2 - General Ulcer CM Notes Start: 07/02/18 10:34 Freq: Status: Active Protocol: Activity Type Activity Date Activity User E-Sign Co-Sign Detail Recorded Client Recorded Date Recorded By Document 07/16/18 10:52 MW [id number] 07/16/18 10:57 MW 07/16/18 10:52 Wound Center Nurse 2 [Procedure/Treatment] #1- LT LAT LE -Time 10:52 -Correct Patient Yes -Correct Side, Site, Position Yes -Correct Procedure Yes -Procedure Performed Yes -Type of Procedure Debridement -Clinical Debridement Subcutaneous -Post Debridement Size (cm) - Length 1.1 -Post Debridement Size (cm) - Width 0.9 -Post Debridement Size (cm) - Depth 0.1 -Total Square Cm 0.99 -Wound/Ulcer Outcome Not Healed -Ulcer Cleansing Rinsed/ Irrigated with Saline -Foul Odor after Cleansing No -Bioengineered Tissue Yes -Type of bioengineered Tissue EPIFIX -Expiration Date 12/21/22 -Product Lot Number [id number] -Percent Used 100 -Saline Lot Number [id number] -Bleeding Controlled with Pressure -Offloading No -Treatment Response Procedure Tolerated Well [See Physician Procedure note for Specifics] Pain Scale: 0-10 Numeric [Pain] -Is Patient Pain Free? Yes Musculoskeletal: No Tenderness to Palpation of Joints or Extremities Lymphatic: No Cervical, Supraclavicular, or Inguinal Adenopathy Neurological: Cranial nerves II-XII grossly intact, Neuro grossly intact Psych/Mental Status: Normal Affect, Appropriate Debridement Note Post-Debridement Measurements/Treatment WC - Nurse 2 - General Ulcer CM Notes Start: 07/02/18 10:34 Freq: Status: Active Protocol: Activity Type Activity Date Activity User E-Sign Co-Sign Detail Recorded Client Recorded Date Recorded By Document 07/02/18 10:56 MW [id number] 07/02/18 11:00 MW Document 07/09/18 10:56 MW [id number] 07/09/18 10:59 MW Document 07/16/18 10:52 MW [id number] 07/16/18 10:57 MW 07/02/18 07/09/18 07/16/18 10:56 10:56 10:52 Wound Center Nurse 2 #1- LT LAT LE -Time 10:57 10:56 10:52 -Correct Patient Yes Yes Yes -Correct Side, Site, Position Yes Yes Yes -Correct Procedure Yes Yes Yes -Procedure Performed Yes Yes Yes -Type of Procedure Debridement Debridement Debridement -Clinical Debridement Subcutaneous Subcutaneous Subcutaneous -Post Debridement Size (cm) - Length 2.0 1.5 1.1 -Post Debridement Size (cm) - Width 1.5 1.0 0.9 -Post Debridement Size (cm) - Depth 0.2 0.2 0.1 -Total Square Cm 3.00 1.50 0.99 -Wound/Ulcer Outcome Not Healed Not Healed Not Healed -Ulcer Cleansing Rinsed/ Rinsed/ Rinsed/ Irrigated with Irrigated with Irrigated with Saline Saline Saline -Foul Odor after Cleansing No No No -Bioengineered Tissue No No Yes -Type of bioengineered Tissue EPIFIX -Expiration Date 12/21/22 -Product Lot Number [id number] -Percent Used 100 -Saline Lot Number [id number] -Bleeding Controlled with Pressure Pressure Pressure -Offloading No No No -Treatment Response Procedure Procedure Procedure Tolerated Well Tolerated Well Tolerated Well Pain Scale: 0-10 Numeric Is Patient Pain Free? Yes Yes Yes Wound debrided: Left lateral lower leg Type of Debridement: Excisional debridement Anesthesia Used: 5% Lidocaine Gel Depth: Down to and including healthy tissue Instrument Used: 5mm curette Tissue Removed: Fibrin and some devitalized tissue Severity: Limited To Skin Breakdown Amount of bleeding with debridement: Mild Bleeding Controlled with: Compression and gauze Patient tolerated procedure well Assessment/Plan Active Problems (Last Updated 08/06/17 @ 08:44 by Corrina Kiser) Factor 5 Leiden mutation, heterozygous (Chronic) Nonhealing nonsurgical wound with fat layer exposed (Acute) Traumatic open wound of left lower leg with delayed healing (Acute) Edema of left lower leg due to peripheral venous insufficiency (Acute) Ulcer of right medial lower extremity, limited to breakdown of skin (Acute) Assessment: Nonhealing traumatic left lower leg wound. Factor V. Long-term Coumadin. Osteoporosis Plan: Epi fix #1 applied. Patient to leave dressing alone for 1 week. Double layer Tubigrip to the left leg. Follow-up in 1 week
== END 2018-07-20 23:59 ==
LOC: WC 10:00
PROVIDERS: Family Provider Family Medicine Geriatric Medicine; PCP Family Medicine Geriatric Medicine; Visit Provider Nurse Practitioner
DX: S81.832A Puncture wound without foreign body, left lower leg, initial encounter (principal); W22.8XXA Striking against or struck by other objects, initial encounter; Y93.89 Activity, other specified; D68.51 Activated protein C resistance
CPT/HCPCS: 11042; 15271; 99213; Q4186; G0463

== ENCOUNTER 2018-07-23 08:50 | Outpatient (RCR) | payer MEDICARE, BC, SELFPAY ==
[2018-07-21 01:50] VITALS: BP 158/67; PULSE 73; RESP 18; TEMP 37
[2018-07-23 09:10] VITALS: BP 132/76; PULSE 77; RESP 18; TEMP 36.5; BMI 33.0
--- NOTE | 2018-07-23 09:21 | PCM.WC.PN ---
(1) Nonhealing nonsurgical wound with fat layer exposed Status: Acute Current Visit: Yes Code(s): T14.8XXA - Other injury of unspecified body region, initial encounter (2) Traumatic open wound of left lower leg with delayed healing Status: Acute Current Visit: Yes Code(s): S81.802D - Unspecified open wound, left lower leg, subsequent encounter (3) Factor 5 Leiden mutation, heterozygous Status: Chronic Current Visit: Yes Code(s): D68.51 - Activated protein C resistance Type of Wound Chief Complaint: Follow-up of a traumatic left lower leg wound nonhealing since June 07. 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 He is on warfarin for factor V and DVTs. She was seen by Dr. Pete and he gave her IV antibiotics after cultures were negative for MRSA and she is now currently taking 2 antibiotics and using povidone iodine on the wound. Patient denies pain or infection skin around the area looks good. Progress of Wound: Patient received 1 application of epifix that healed the wound . Patient will be discharged from the wound center - Physical Exam Vital Signs Temp Pulse Resp BP 97.7 F L 77 18 132/76 H 07/23/18 09:10 07/23/18 09:10 07/23/18 09:10 07/23/18 09:10 General: Oriented x3, Cooperative, Well developed HEENT: Atraumatic, PERRLA Oral: Moist Mucosa Neck: Supple, No JVD Lungs: Clear to auscultation, Normal air movement Cardiovascular: Regular rate, Regular Rhythm Abdomen: Bowel Sounds Present, Soft, Non Tender, No Hepato-splenomegaly Extremities: No clubbing, No edema, - - Left lateral lower leg ulcer Wound Measurements and Assessment WC - Nurse 1 - General Ulcer Measurement Start: 07/23/18 09:10 Freq: Status: Active Protocol: Activity Type Activity Date Activity User E-Sign Co-Sign Detail Recorded Client Recorded Date Recorded By Document 07/23/18 09:10 RB [id number] 07/23/18 09:12 RB 07/23/18 09:10 Wound Center Nurse 1 [Ulcer Assessment] #1- LT LAT LE -Combined with other wound No -Current Size (cm) - Length 1.7 -Current Size (cm) - Width 1.6 -Current Size (cm) - Depth 0.1 -Total Square Cm 2.72 -Tunneling No -Undermining/Tunneling No -Circular Undermining No -Exudate Amt Small -Exudate Type Serosanguineous -Wound Margin Distinct, Outline Attached -Granulation Amt Large (67-100%) -Granulation Quality [place] -Slough/Fibrin Yes -Necrosis Amt Small (1-33%) -Necrotic Tissue Type Adherent Slough -Structure Exposed N/A -Texture (So-wound Skin Appearance) Assessed -Moisture (So-wound Skin Appearance Assessed ) -Color (So-wound Skin Appearance) Assessed -Temperature (So-wound Skin No Abnormality Appearance) (Pt Warm) -Tenderness on Palpation (So-wound No Skin Appearance) -Ulcer Cleansing Wound Cleanser -Foul Odor after Cleansing No -Anesthetic Used 4% Lidocaine Solution [Edema Assessment] -Lower Limb Edema Present Yes -Left Calf (cm) 34 -Left Ankle (cm) 18.5 WC - Nurse 2 - General Ulcer CM Notes Start: 07/23/18 09:10 Freq: Status: Active Protocol: Activity Type Activity Date Activity User E-Sign Co-Sign Detail Recorded Client Recorded Date Recorded By Document 07/23/18 09:18 MW [id number] 07/23/18 09:19 MW 07/23/18 09:18 Wound Center Nurse 2 [Procedure/Treatment] #1- LT LAT LE -Time 09:19 -Correct Patient Yes -Correct Side, Site, Position Yes -Correct Procedure Yes -Procedure Performed No -Post Debridement Size (cm) - Length 0 -Post Debridement Size (cm) - Width 0 -Post Debridement Size (cm) - Depth 0 -Total Square Cm 0 -Wound/Ulcer Outcome Healed- Epithelialized [See Physician Procedure note for Specifics] Musculoskeletal: No Tenderness to Palpation of Joints or Extremities Lymphatic: No Cervical, Supraclavicular, or Inguinal Adenopathy Neurological: Cranial nerves II-XII grossly intact, Neuro grossly intact Psych/Mental Status: Normal Affect, Appropriate, Alert and oriented to time, place, person, mood and affect Debridement Note Post-Debridement Measurements/Treatment WC - Nurse 2 - General Ulcer CM Notes Start: 07/23/18 09:10 Freq: Status: Active Protocol: Activity Type Activity Date Activity User E-Sign Co-Sign Detail Recorded Client Recorded Date Recorded By Document 07/23/18 09:18 MW [id number] 07/23/18 09:19 MW 07/23/18 09:18 Wound Center Nurse 2 #1- LT LAT LE -Time :19 -Correct Patient Yes -Correct Side, Site, Position Yes -Correct Procedure Yes -Procedure Performed No -Post Debridement Size (cm) - Length 0 -Post Debridement Size (cm) - Width 0 -Post Debridement Size (cm) - Depth 0 -Total Square Cm 0 -Wound/Ulcer Outcome Healed- Epithelialized No debridement was completed today Assessment/Plan Active Problems (Last Updated 08/06/17 @ 08:44 by Corrina Kiser) Factor 5 Leiden mutation, heterozygous (Chronic) Nonhealing nonsurgical wound with fat layer exposed (Acute) Traumatic open wound of left lower leg with delayed healing (Acute) Assessment: Nonhealing traumatic left lower leg wound resolved. Factor V. Long-term Coumadin. Osteoporosis Plan: Discharge from the wound center. Follow-up as needed. Keep the new skin covered for 2 to 3 days with gauze dressing
--- NOTE | 2018-07-23 09:40 | PN.PCM_ITS ---
(1) Nonhealing nonsurgical wound with fat layer exposed Status: Acute Current Visit: Yes Code(s): T14.8XXA - Other injury of unspecified body region, initial encounter (2) Traumatic open wound of left lower leg with delayed healing Status: Acute Current Visit: Yes Code(s): S81.802D - Unspecified open wound, left lower leg, subsequent encounter (3) Factor 5 Leiden mutation, heterozygous Status: Chronic Current Visit: Yes Code(s): D68.51 - Activated protein C resistance Type of Wound Chief Complaint: Follow-up of a traumatic left lower leg wound nonhealing since June 07. 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 He is on warfarin for factor V and DVTs. She was seen by Dr. Pete and he gave her IV antibiotics after cultures were negative for MRSA and she is now currently taking 2 antibiotics and using povidone iodine on the wound. Patient denies pain or infection skin around the area looks good. Progress of Wound: Patient received 1 application of epifix that healed the wound . Patient will be discharged from the wound center - Physical Exam Vital Signs Temp Pulse Resp BP 97.7 F L 77 18 132/76 H 07/23/18 09:10 07/23/18 09:10 07/23/18 09:10 07/23/18 09:10 General: Oriented x3, Cooperative, Well developed HEENT: Atraumatic, PERRLA Oral: Moist Mucosa Neck: Supple, No JVD Lungs: Clear to auscultation, Normal air movement Cardiovascular: Regular rate, Regular Rhythm Abdomen: Bowel Sounds Present, Soft, Non Tender, No Hepato-splenomegaly Extremities: No clubbing, No edema, - - Left lateral lower leg ulcer Wound Measurements and Assessment WC - Nurse 1 - General Ulcer Measurement Start: 07/23/18 09:10 Freq: Status: Active Protocol: Activity Type Activity Date Activity User E-Sign Co-Sign Detail Recorded Client Recorded Date Recorded By Document 07/23/18 09:10 RB [id number] 07/23/18 09:12 RB 07/23/18 09:10 Wound Center Nurse 1 [Ulcer Assessment] #1- LT LAT LE -Combined with other wound No -Current Size (cm) - Length 1.7 -Current Size (cm) - Width 1.6 -Current Size (cm) - Depth 0.1 -Total Square Cm 2.72 -Tunneling No -Undermining/Tunneling No -Circular Undermining No -Exudate Amt Small -Exudate Type Serosanguineous -Wound Margin Distinct, Outline Attached -Granulation Amt Large (67-100%) -Granulation Quality Adair -Slough/Fibrin Yes -Necrosis Amt Small (1-33%) -Necrotic Tissue Type Adherent Slough -Structure Exposed N/A -Texture (So-wound Skin Appearance) Assessed -Moisture (So-wound Skin Appearance Assessed ) -Color (So-wound Skin Appearance) Assessed -Temperature (So-wound Skin No Abnormality Appearance) (Pt Warm) -Tenderness on Palpation (So-wound No Skin Appearance) -Ulcer Cleansing Wound Cleanser -Foul Odor after Cleansing No -Anesthetic Used 4% Lidocaine Solution [Edema Assessment] -Lower Limb Edema Present Yes -Left Calf (cm) 34 -Left Ankle (cm) 18.5 WC - Nurse 2 - General Ulcer CM Notes Start: 07/23/18 09:10 Freq: Status: Active Protocol: Activity Type Activity Date Activity User E-Sign Co-Sign Detail Recorded Client Recorded Date Recorded By Document 07/23/18 09:18 MW [id number] 07/23/18 09:19 MW 07/23/18 09:18 Wound Center Nurse 2 [Procedure/Treatment] #1- LT LAT LE -Time 09:19 -Correct Patient Yes -Correct Side, Site, Position Yes -Correct Procedure Yes -Procedure Performed No -Post Debridement Size (cm) - Length 0 -Post Debridement Size (cm) - Width 0 -Post Debridement Size (cm) - Depth 0 -Total Square Cm 0 -Wound/Ulcer Outcome Healed- Epithelialized [See Physician Procedure note for Specifics] Musculoskeletal: No Tenderness to Palpation of Joints or Extremities Lymphatic: No Cervical, Supraclavicular, or Inguinal Adenopathy Neurological: Cranial nerves II-XII grossly intact, Neuro grossly intact Psych/Mental Status: Normal Affect, Appropriate, Alert and oriented to time, place, person, mood and affect Debridement Note Post-Debridement Measurements/Treatment WC - Nurse 2 - General Ulcer CM Notes Start: 07/23/18 09:10 Freq: Status: Active Protocol: Activity Type Activity Date Activity User E-Sign Co-Sign Detail Recorded Client Recorded Date Recorded By Document 07/23/18 09:18 MW [id number] 07/23/18 09:19 MW 07/23/18 09:18 Wound Center Nurse 2 #1- LT LAT LE -Time :19 -Correct Patient Yes -Correct Side, Site, Position Yes -Correct Procedure Yes -Procedure Performed No -Post Debridement Size (cm) - Length 0 -Post Debridement Size (cm) - Width 0 -Post Debridement Size (cm) - Depth 0 -Total Square Cm 0 -Wound/Ulcer Outcome Healed- Epithelialized No debridement was completed today Assessment/Plan Active Problems (Last Updated 08/06/17 @ 08:44 by Corrina Kiser) Factor 5 Leiden mutation, heterozygous (Chronic) Nonhealing nonsurgical wound with fat layer exposed (Acute) Traumatic open wound of left lower leg with delayed healing (Acute) Assessment: Nonhealing traumatic left lower leg wound resolved. Factor V. Long-term Coumadin. Osteoporosis Plan: Discharge from the wound center. Follow-up as needed. Keep the new skin covered for 2 to 3 days with gauze dressing
== END 2018-08-20 23:59 ==
LOC: WC 08:50
PROVIDERS: Family Provider Family Medicine Geriatric Medicine; PCP Family Medicine Geriatric Medicine; Visit Provider Nurse Practitioner
DX: Z09 Encounter for follow-up examination after completed treatment for conditions other than malignant neoplasm (principal); S81.832A Puncture wound without foreign body, left lower leg, initial encounter; W22.8XXA Striking against or struck by other objects, initial encounter; Y93.89 Activity, other specified; D68.51 Activated protein C resistance
CPT/HCPCS: 99213; G0463

== ENCOUNTER → 2018-08-07 | Outpatient (CLI) | payer MEDICARE, BC, SELFPAY ==
[2018-07-09 10:30] VITALS: BMI 33.0
[2018-07-23 09:10] VITALS: BMI 33.0
--- NOTE | 2018-08-07 09:47 | BI_ITS ---
MAMMOGRAPHY - BILATERAL SCREENING REASON FOR EXAM: Female, 73 years old. Routine annual screening examination. PERTINENT HISTORY: Non-contributory. Occasional bilateral breast pain. TECHNIQUE: Digital bilateral breast vinnie (3D mammographic acquisition) in the CC and MLO projections. 2-D mediolateral oblique (MLO) and craniocaudad (CC) views of both breasts were obtained. CAD: Full Field Digital Mammography with Computer Added Detection was performed. COMPARISON: Comparison is made with prior study dated January 16, 2016 and January 18, 2014. FINDINGS: Breast Composition: The breasts are almost entirely fatty. There are no dominant masses or suspicious calcifications. No other significant abnormalities are identified. There has been no significant change since the prior study. BI/SCREENING MAMM (CAD), BILAT IMPRESSION: Stable bilateral screening mammogram. Yearly follow-up mammogram recommended. (A) ASSESSMENT CATEGORY: BIRADS Category 1: Negative. A letter regarding these results will be sent to the patient by the facility within 30 days. Approximately 10% of breast cancers are not detected by mammography. A normal mammogram should not delay biopsy of a clinically suspicious abnormality. [id number] Electronically Signed: Leonides Manriquez, at 8:55 EDT , Service support ,
== END | disposition home or self-care (01) ==
LOC: OPBI 09:47
PROVIDERS: Family Provider Family Medicine Geriatric Medicine; PCP Family Medicine Geriatric Medicine; Referring Provider Family Medicine Geriatric Medicine; Visit Provider Family Medicine Geriatric Medicine
DX: Z12.31 Encounter for screening mammogram for malignant neoplasm of breast (principal)
CPT/HCPCS: 77063; 77067

== ENCOUNTER → 2018-09-08 | Outpatient (CLI) | payer MEDICARE, BC, SELFPAY ==
[2018-09-08 12:36] LABS: Absolute Lymphocyte Count 1.73 X10^3/ul (0.83-4.51); Absolute Neutrophil Count 6.4 X10^3/uL (2.0-7.7); Basophil# 0.03 X10^3/uL; Basophil% 0.3 % (0-1); Eosinophil# 0.24 X10^3/uL; Eosinophils% 2.6 % (0-5); Hemoglobin 12.3 g/dl (12.0-15.0); Lymphocyte # 1.73 X10^3/ul (4.0); Lymphocyte % 18.5 % (19-41); Mean Corp Hgb Conc 31.5 g/gl (32-36); Mean Corpuscular Hgb 28.1 pg (27.0-32.0); Mean Platelet Vol. 10.8 fl (6.2-12.0); Monocyte# 0.92 X10^3/uL; Monocyte% 9.8 % (0-10); Neutrophil % 68.5 % (47-70); Platelet Count 310 K/mm3 (150-450); RBC Distribution Width CV 13.6 % (11.6-14.6); RBC Distribution Width SD 43.9 fl (35.1-43.9); Red Blood Count 4.38 M/mm3 (4.2-5.4); White Blood Count 9.4 K/mm3 (4.4-11.0)
[2018-09-08 12:38] LABS: POSITIVE COUNT NO; POSITIVE DIFFERENTIAL NO; POSITIVE MORPHOLOGY NO
[2018-09-08 13:00] LABS: ALB/GLOB Ratio 0.9 RATIO (0.9-2.4); AST(SGOT) 17 U/L (15-37); Alanine Aminotransfer ALT/SGPT 28 U/L (13-56); Albumin, Serum 3.6 g/dL (3.2-5.0); Alkaline Phosphatase 65 U/L (45-117); Anion Gap 9 (5-15); BUN 12 mg/dL (7-18); BUN/Creat Ratio 16.6 RATIO (10-20); Calcium,Total 8.8 mg/dL (8.5-10.1); Chloride 104 mmol/L (98-107); Creatinine, Serum 0.72 mg/dL (0.55-1.02); EST Glomerular Filtration Rate 84 mL/min (>60); Est Glom Filt Rate - Afr Amer 101 mL/min (>60); Globulin 3.8 g/dL (2.2-4.2); Glucose 91 mg/dL (74-106); Potassium 3.9 mmol/L (3.5-5.1); Protein, Total 7.4 g/dL (6.4-8.2); Sodium Level 138 mmol/L (136-145); Thyroid Stim Hormone (TSH) 1.08 uIU/mL (0.358-3.74)
[2018-09-08 13:05] LABS: PTHIN 52.3 pg/mL (18.4-80.1)
== END | disposition home or self-care (01) ==
LOC: POLAB3 11:45
PROVIDERS: Family Provider Family Medicine Geriatric Medicine; PCP Family Medicine Geriatric Medicine; Visit Provider Family Medicine Geriatric Medicine
DX: E21.3 Hyperparathyroidism, unspecified (principal); L65.9 Nonscarring hair loss, unspecified; R53.83 Other fatigue
CPT/HCPCS: 36415; 80053; 83970; 84443; 85025

== ENCOUNTER 2018-10-05 14:01 | Observation (INO) | payer MEDICARE, BC, SELFPAY ==
[2018-10-05] VITALS (11 sets, daily range): BP systolic 103–162; BP diastolic 51–66; PULSE 60–88; RESP 14–18; TEMP 36.4–36.7; O2SAT 89–100; BMI 30.4; BMI 30.7
--- NOTE | 2018-10-05 14:27 | RAD_ITS ---
STUDY: X-RAY CHEST REASON FOR EXAM: Female, 73 years old. Left-sided breast pain. TECHNIQUE: Single AP portable view of the chest. COMPARISON: Comparison is made with prior examination dated August 18, 2013. FINDINGS: EKG electrodes are seen. Stable pleural parenchymal changes at the left lung base suggestive of scarring. There is no demonstrated pleural abnormality. There is mild cardiac enlargement. Normal mediastinum and agueda. Normal visualized pulmonary arteries. There is atherosclerotic calcification of the aortic arch with tortuosity. Multilevel loss of height with a vertebroplasty of the lower thoracic vertebrae. Normal visualized ribs, clavicles, and shoulders. Moderate sized hiatal hernia. RAD/Chest 1 View (Portable) IMPRESSION: Stable pleural parenchymal changes at the left lung base. Moderate sized hiatal hernia. Electronically Signed: Leonides Manriquez, at 15:05 EDT , Service support ,
--- NOTE | 2018-10-05 14:27 | EKG12_ITS ---
Test Reason : CP Blood Pressure : / mmHG Vent. Rate : 065 BPM Atrial Rate : 065 BPM P-R Int : 160 ms QRS Dur : 080 ms QT Int : 412 ms P-R-T Axes : 004 004 012 degrees QTc Int : 428 ms Normal sinus rhythm Normal ECG Confirmed by IGLESIA DIGGS, THEO ([id number]), fashion editor MAIKOL FREY ([id number]) on 10/07/2018 1:34:14 PM Referred By: BALJINDER Confirmed By:THEO PAREKH MD
--- NOTE | 2018-10-05 14:34 | ED.DCSUM_ITS ---
History of Present Illness Chief Complaint: Chest Pain Informant: Patient Onset: Today - less than 1 hr Activity at onset: Rest - riding in car Quality: Pressure Location: Substernal Current Severity: Moderate Maximum Severity: Moderate Worsened By: Nothing. Not Worsened By: Breathing Relieved By: Nothing Associated Symptoms: Nausea, Vomiting, Lightheadedness. Negative for: Diaphoresis, Dyspnea, Cough, Fever, Acid Reflux, Palpitations Narrative: Patient states while riding in the car in the way home from a of a friend, she started feeling very nauseated and had epigastric pressure that radiated up into her substernal chest. No arm, jaw, neck pain associated with this. She has pre-existing back discomfort from her recent fracture that is unchanged. She felt like she was going to pass out but did not have any palpitations or racing heartbeat, no dyspnea, she has had some bilateral ankle swelling for the past 2 or 3 weeks, she had a prior DVT as well as a PE, but does not member what they felt like and has been on warfarin ever since. No known history of heart disease but states my associate financial representative is Dr. Soria. States her last stress test she thinks was last year sometime, she has never had an abnormal one. Prior Similar Symptoms: No CVD Risk Factors: Diabetes, Hypercholesterolemia, Family History 1' </=55 - Brother at 38 from heart attack. Negative for: Hypertension, Smoking - Past Medical History (1) Edema of left lower leg due to peripheral venous insufficiency Status: Chronic (2) History of DVT (deep vein thrombosis) Status: Chronic (3) DM2 (diabetes mellitus, type 2) Status: Chronic (4) Depression Status: Chronic (5) Factor 5 Leiden mutation, heterozygous Status: Chronic (6) HLD (hyperlipidemia) Status: Chronic Past Medical History - Allergies and Home Meds Allergies/Adverse Reactions: Allergies castor oil Allergy (Verified 10/05/18 14:02) Unknown frovatriptan succinate [From Frova] Allergy (Verified 10/05/18 14:02) Rash sumatriptan [From Imitrex] Allergy (Verified 10/05/18 14:02) Rash sumatriptan succinate [From Imitrex] Allergy (Verified 10/05/18 14:02) Rash vitamin E (d-alpha tocopherol) Allergy (Verified 10/05/18 14:02) Chest tightness VITAMIN E IV SOLUTION IVP DYE Allergy (Uncoded 10/05/18 14:02) Vomiting Primary Care Physician: Theo Watters Chi, MD [Primary Care Provider] - Surgical History: appendectomy, hysterectomy, - - Kyphoplasty plasty and vertebroplasty from osteoporosis Smoking Status: Never smoker Drugs: None Review of Systems General: Reports: Malaise. Denies: Chills, Fever, Sweats Eyes: Denies: Visual changes - bilaterally, Diplopia ENT: Denies: Rhinorrhea, Sore throat Cardiovascular: Reports: Chest pain. Denies: Palpitations Respiratory: Denies: Dyspnea, Cough, Dyspnea on exertion, Orthopnea Gastrointestinal: Reports: Abdominal pain, Nausea, Vomiting. Denies: Diarrhea, Melena, Hematochezia Genitourinary: Denies: Dysuria, Hematuria, Frequency Musculoskeletal: Reports: Back pain, Swelling. Denies: Extremity Pain Skin: Denies: Rash, Wounds Neurological: Denies: Headache, Weakness, Numbness Physical Exam Vital Signs/Narrative: Vital Signs Temp Pulse Resp BP Pulse Ox 10/05/18 14:29 96 10/05/18 14:02 98.1 F 66 15 146/63 H 100 Inital Vital Signs reviewed: Yes General: Well nourished, Well developed, No Acute Distress Head: Normocephalic, Atraumatic Eyes: Perrl, EOMI ENT: Moist mucous membranes, No rhinorrhea Neck: Supple, Nontender Cardiovascular: Regular rate, Regular rhythm, Murmur - soft MAHSA Respiratory: No distress, CTA bilaterally, Chest nontender Abdomen: Soft, Nontender, Nondistended, Normal bowel sounds Back: Nontender, Normal Inspection. Negative for: CVA tenderness Extremities: Nontender, Edema - trace both ankles, symmetric. Negative for: Calf Tenderness Skin: Normal color, No rash, No Trauma Neurological: Alert, Oriented x3, Cranial nerves II-XII grossly intact, Normal Strength, Normal Sensation Psychological: Normal affect, Normal Mood Diagnostic/Tx/Re-eval - Rhythm Strip Rhythm Strip: Sinus Rhythm Rate: 65 Ectopy: None - EKG Initial EKG Interpretation: Sinus Rhythm, No Acute Injury Pattern Prior: No Prior Treatment: NTG SL Repeat Eval: Pain Free SAW Risk: Age >/= 65, >/= 3RF Score: 2 - Medical Decision Making Patient has a heart score of 6. Enzymes are negative, EKG is normal, her symptoms resolved with nitroglycerin and her symptoms are concerning. She has never had symptoms like this before. Chest x-ray is unremarkable. Discussed with Dr. Julian and patient/family who agree with inpatient observation and further evaluation. ED Disposition - Plan for ED Patient: Disposition: Acute Care Hospital [facility] Diagnosis: Chest pain, unspecified Referrals: Theo Watters Chi, MD [Primary Care Provider] -
[2018-10-05] MEDS: 0.9% Normal Saline 1,000 ML 150 ML IV (14:40)
[2018-10-05] MEDS: Aspirin 81 MG TAB.CHEW 324 MG PO (14:41)
[2018-10-05] MEDS: Ondansetron 4 MG/2 ML Vial IV (14:41)
[2018-10-05] MEDS: Nitroglycerin SL (ED/IMG/CATH) 0.4 MG TABLET SUBLINGUAL ×3 (14:42→14:55)
[2018-10-05 15:43] LABS: Absolute Lymphocyte Count 4.52 X10^3/uL (0.83-4.51); Absolute Neutrophil Count 5.9 X10^3/uL (2.0-7.7); Basophil# 0.05 X10^3/uL; Basophil% 0.4 % (0-1); Eosinophil# 0.33 X10^3/uL; Eosinophils% 2.7 % (0-5); Hematocrit 35.7 % (37-47); Hemoglobin 11.4 g/dL (12.0-15.0); Lymphocyte # 4.52 X10^3/ul (4.0); Lymphocyte % 37.5 % (19-41); Mean Corp Hgb Conc 31.9 g/dL (32-36); Mean Corpuscular Hgb 28.5 pg (27.0-32.0); Mean Corpuscular Volume 89.3 fL (81-99); Monocyte# 1.16 X10^3/uL; Monocyte% 9.6 % (0-10); NRBC Flagged by Analyzer 0 % (0-5); Neutrophil # 5.93 X10^3/uL (2.7-7.7); Neutrophil % 49.3 % (47-70); Platelet Count 318 K/mm3 (150-450); RBC Distribution Width SD 45.9 fl (35.1-43.9); White Blood Count 12.1 K/mm3 (4.4-11.0)
[2018-10-05 15:49] LABS: Anion Gap 5 (5-15); BUN 10 mg/dL (7-18); BUN/Creat Ratio 13.1 RATIO (10-20); Calcium,Total 8.9 mg/dL (8.5-10.1); Chloride 106 mmol/L (98-107); Creatinine, Serum 0.76 mg/dL (0.55-1.02); EST Glomerular Filtration Rate 78 mL/min (>60); Est Glom Filt Rate - Afr Amer 95 mL/min (>60); Estimated Creatinine Clearance 51.43 ml/min; Glucose 85 mg/dL (74-106); Potassium 3.6 mmol/L (3.5-5.1); Sodium Level 137 mmol/L (136-145)
[2018-10-05 16:09] LABS: International Normalized Ratio 1.8; Prothrombin Time (Protime)PT. 20.5 SECONDS (11.7-14.9)
--- NOTE | 2018-10-05 16:19 | HP.PCM_ITS ---
History of Present Illness Date of Admission: 10/05/18 Chief Complaint: chest pain The patient is a 73 year old F with past medical history of DVT due to factor V Leiden mutation, hyperlipidemia and sinus bradycardia as well as migraines. She was admitted through the ED on 10/05/2018 with a complaint of chest pain. Patient states he was driving from [place] to see a PCP in [place] and started having pressure-like retrosternal chest pain which she rated at about 9/10. She did not have any associated lightheadedness or dizziness or palpitations and denied any nausea vomiting or abdominal pain. She does not think she has had pain like this in the past. She has not had any recent long distance travel and has been compliant with her Coumadin. Review of systems otherwise negative. Vitals in the ED was stable and chest x-ray showed stable pleural parenchymal changes of the left lung base with a moderate sized hiatal hernia. EKG showed normal sinus rhythm with no acute ST changes. BMP was unremarkable and CBC showed white cell count of 12.1 with hemoglobin of 11.4. She has been admitted to be managed for chest pain to rule out ACS. [] Past Medical History Past Medical History (Chronic Problems): Chronic Problems (Last Updated 09/17/18 @ 08:09 by Bianca Jacob) History of DVT (deep vein thrombosis) (Chronic) Cardiac murmur (Chronic) Factor 5 Leiden mutation, heterozygous (Chronic) Edema of left lower leg due to peripheral venous insufficiency (Chronic) HLD (hyperlipidemia) (Chronic) Borderline diabetes (Chronic) Obesity (Chronic) DM2 (diabetes mellitus, type 2) (Chronic) Depression (Chronic) Medical History: Medical History (Last Updated 09/17/18 @ 08:09 by Bianca Jacob) History of DVT (deep vein thrombosis) (Chronic) Z86.718 Cardiac murmur (Chronic) R01.1 Sinus bradycardia (Acute) R00.1 Factor 5 Leiden mutation, heterozygous (Chronic) D68.51 HLD (hyperlipidemia) (Chronic) E78.5 Allergies castor oil Allergy (Verified 10/05/18 14:02) Unknown frovatriptan succinate [From Frova] Allergy (Verified 10/05/18 14:02) Rash sumatriptan [From Imitrex] Allergy (Verified 10/05/18 14:02) Rash sumatriptan succinate [From Imitrex] Allergy (Verified 10/05/18 14:02) Rash vitamin E (d-alpha tocopherol) Allergy (Verified 10/05/18 14:02) Chest tightness VITAMIN E IV SOLUTION IVP DYE Allergy (Uncoded 10/05/18 14:02) Vomiting Home Medications: Ambulatory Orders Medication Instructions Recorded Vitamin E 400 units PO DAILY 10/13/13 Warfarin [Coumadin] 5 mg PO DAILY 10/13/13 proMETHazine tablet [Phenergan] 25 mg PO Q8H PRN PRN 12/17/16 Budesonide/Formoterol 160/4.5 2 puff INHALATION BID 10/05/18 [Symbicort 160/4.5 Mcg Inhaler (SP)] Clonazepam 0.5 mg PO DAILY PRN PRN 10/05/18 Famotidine 20 mg PO DAILY 10/05/18 Vitamin B Complex [B Complex] 1 tab PO DAILY 10/05/18 Surgical History: Surgical History (Last Updated 09/17/18 @ 08:09 by Bianca Jacob) H/O: hysterectomy Z90.710 Hx of appendectomy Z90.49 Surgical History: appendectomy, hysterectomy, - - Kyphoplasty plasty and vertebroplasty from osteoporosis Lives: With Family Smoking Status: Never smoker Alcohol: None Drugs: None - *Family History Paternal Family History: Family History (Last Updated 08/06/17 @ 08:45 by Corrina Kiser) Father CAD (coronary artery disease) Myocardial infarction Mother Colon cancer Sibling Family History: Family History (Last Updated 08/06/17 @ 08:45 by Corrina Kiser) Father CAD (coronary artery disease) Myocardial infarction Mother Colon cancer History Items: Heart Disease - brother had heart attack at 38 Review of Systems Constitutional: Denies: Chills, Fever, Weight Change Eyes: Denies: Blurred vision HEENT: Denies: Head Aches, Sinus Congestion, Sinus Drainage Cardiovascular: Reports: Chest Pain, Chest Pressure, Heaviness. Denies: Chest Tightness, Edema, Light Headedness, Orthopnea, Palpitations, Paroxysmal Noc. Dyspnea, Syncope Respiratory: Denies: Cough, Shortness of Breath, Shortness of breath at rest, Shortness of breath upon exertion, Sputum production Gastrointestinal: Denies: Abdominal Pain, Nausea, Vomiting Genitourinary: Denies: Dysuria Musculoskeletal: Denies: Joint Pain, Joint Tenderness Skin: Denies: Rash, Wounds Neurological: Denies: Numbness, Tingling, Focal weakness Psychiatric: Denies: Anxiety, Depression, Homicidal Ideations, Suicidal Ideations Hematologic/ Lymphatic: Denies: Easy Bruising, Easy Bleeding VTE Information - Inpt Only VTE Present on Admission: No VTE Pharm Prophylaxis ordered?: Yes Patient Problems: Active and Suspected Problems (Last Updated 09/17/18 @ 08:09 by Bianca Jacob) Chest pain, unspecified (Acute) - Physical Exam General: Alert, Oriented x3, Cooperative, No apparent distress HEENT: Atraumatic, PERRLA, EOMI, Normocephalic Oral: Moist Mucosa Neck: Supple, No JVD, Negative Carotid Bruits Lungs: Clear to auscultation, Normal air movement, No rhonchi, No wheeze Cardiovascular: Regular rate, Regular Rhythm, Normal S1, Normal S2, No murmurs Abdomen: Bowel Sounds Present, Soft, Non Tender Extremities: No clubbing, No cyanosis, No edema, Capillary Refill Less than 3 Seconds Skin: No rashes, No breakdown Musculoskeletal: No Tenderness to Palpation of Joints or Extremities Lymphatic: No Cervical, Supraclavicular, or Inguinal Adenopathy Neurological: Cranial nerves II-XII grossly intact, Neuro grossly intact, Motor Exam 5/5 strength throughout Psych/Mental Status: Normal Affect, Appropriate, Alert and oriented to time, place, person, mood and affect Vital Signs Temp Pulse Resp BP Pulse Ox 98.1 F 69 14 162/66 H 98 10/05/18 14:02 10/05/18 14:52 10/05/18 14:52 10/05/18 14:52 10/05/18 14:56 Oxygen Flow Rate (L/min) 2 Oxygen Delivery Method Room Air Weight: 145 lb 8.081 oz Body Mass Index (BMI) 30.4 Laboratory Tests Past 24 Hrs 10/05/18 10/05/18 10/05/18 14:00 14:00 14:00 WBC 12.1 H RBC 4.00 L Hgb 11.4 L Hct 35.7 L MCV 89.3 MCH 28.5 MCHC 31.9 L RDW Std Deviation 45.9 H RDW Coeff of Mallika 14.0 Plt Count 318 MPV 11.0 Immature Gran % (Auto) 0.500 Neut % (Auto) 49.3 Lymph % (Auto) 37.5 Lares % (Auto) 9.6 Eos % (Auto) 2.7 Baso % (Auto) 0.4 Absolute Neuts (auto) 5.9 Absolute Lymphs (auto) 4.52 H Absolute Nucleated RBC 0.00 Nucleated RBC % 0 PT Pending INR Pending Sodium 137 Potassium 3.6 Chloride 106 Carbon Dioxide 26.0 Anion Gap 5 BUN 10 Creatinine 0.76 Estim Creat Clear Calc 51.43 Est GFR (MDRD) Af Amer 95 Est GFR (MDRD) Non-Af 78 BUN/Creatinine Ratio 13.1 Glucose 85 Calcium 8.9 Troponin I < 0.015 B-Natriuretic Peptide 10/05/18 14:00 WBC RBC Hgb Hct MCV MCH MCHC RDW Std Deviation RDW Coeff of Mallika Plt Count MPV Immature Gran % (Auto) Neut % (Auto) Lymph % (Auto) Lares % (Auto) Eos % (Auto) Baso % (Auto) Absolute Neuts (auto) Absolute Lymphs (auto) Absolute Nucleated RBC Nucleated RBC % PT INR Sodium Potassium Chloride Carbon Dioxide Anion Gap BUN Creatinine Estim Creat Clear Calc Est GFR (MDRD) Af Amer Est GFR (MDRD) Non-Af BUN/Creatinine Ratio Glucose Calcium Troponin I B-Natriuretic Peptide Pending Diagnostic Data Chest X-Ray 10/05/18 14:27 IMPRESSION: Stable pleural parenchymal changes at the left lung base. Moderate sized hiatal hernia. Electronically Signed: Leonides Manriquez, at 15:05 EDT , Service support , Assessment/Plan All Active Problems (Last Updated 09/17/18 @ 08:09 by Bianca Jacob) Chest pain, unspecified (Acute) Sinus bradycardia (Acute) Nonhealing nonsurgical wound with fat layer exposed (Acute) Traumatic open wound of left lower leg with delayed healing (Acute) Ulcer of right medial lower extremity, limited to breakdown of skin (Acute) 73 y/o admitted with a complaint of chest pain. 1. Chest pain to rule out ACS * Admit to PCU telemetry * Initial troponin was negative. We will cycle. * SubLingual nitroglycerin as needed. P.o. aspirin 81 mg daily. * For stress test tomorrow if troponins x3 are negative. * INR was 1.8 making PE very unlikely. * * 2. Hiatal hernia: * as seen on CXR. may be contributing to chest pain possibly. * IF stress test negative, may benefit from follow up with general surgeon on outpatient basis. * 3. History of factor V Leiden deficiency: On Coumadin. Says she has been compliant. INR is 1.8 today. We will continue Coumadin and monitor INR. 4. Hyperlipidemia: On statin. 5. History of migraines: Stable. 6. History of sinus bradycardia: Stable. DVT prophylaxis: On Coumadin. GI prophylaxis: Famotidine. Code Visit OBSV E&M: 22890 Initial observation care L2
[2018-10-05 16:56] LABS: BNP,B-Type NATRIURETIC PEPTIDE 149.6 pg/mL (0-100)
[2018-10-05] MEDS: Budesonide Respules 0.5 MG/2 ML AMPUL.NEB. INHALATION (19:26)
[2018-10-05] MEDS: Albuterol 2.5 MG/3 ML VIAL.NEB. INHALATION (19:26)
[2018-10-06 02:59] VITALS: PULSE 66
[2018-10-06 04:20] VITALS: BP 119/54; PULSE 70; RESP 16; TEMP 36.5; O2SAT 92
[2018-10-06 05:04] LABS: Absolute Lymphocyte Count 2.14 X10^3/uL (0.83-4.51); Basophil# 0.04 X10^3/uL; Basophil% 0.6 % (0-1); Eosinophil# 0.26 X10^3/uL; Eosinophils% 3.6 % (0-5); Hematocrit 32.6 % (37-47); Hemoglobin 9.7 g/dL (12.0-15.0); Lymphocyte # 2.14 X10^3/ul (4.0); Mean Corp Hgb Conc 29.8 g/dL (32-36); Mean Corpuscular Hgb 27.6 pg (27.0-32.0); Mean Corpuscular Volume 92.6 fL (81-99); Mean Platelet Vol. 10.3 fl (6.2-12.0); Monocyte# 0.64 X10^3/uL; NRBC Flagged by Analyzer 0 % (0-5); Neutrophil # 4.04 X10^3/uL (2.7-7.7); Neutrophil % 56.5 % (47-70); Platelet Count 241 K/mm3 (150-450); RBC Distribution Width CV 14.1 % (11.6-14.6); RBC Distribution Width SD 47.7 fl (35.1-43.9); Red Blood Count 3.52 M/mm3 (4.2-5.4); White Blood Count 7.1 K/mm3 (4.4-11.0)
[2018-10-06 05:16] LABS: Anion Gap 7 (5-15); BUN 9 mg/dL (7-18); BUN/Creat Ratio 16.8 RATIO (10-20); Calcium,Total 7.9 mg/dL (8.5-10.1); Chloride 110 mmol/L (98-107); Creatinine, Serum 0.54 mg/dL (0.55-1.02); EST Glomerular Filtration Rate 118 mL/min (>60); Est Glom Filt Rate - Afr Amer 143 mL/min (>60); Estimated Creatinine Clearance 51.97 ml/min; Glucose 90 mg/dL (74-106); Sodium Level 143 mmol/L (136-145)
[2018-10-06 05:20] LABS: Prothrombin Time (Protime)PT. 13.4 SECONDS (11.7-14.9)
--- NOTE | 2018-10-06 05:55 | EKG12_ITS ---
Test Reason : AM EKG Blood Pressure : / mmHG Vent. Rate : 063 BPM Atrial Rate : 063 BPM P-R Int : 156 ms QRS Dur : 080 ms QT Int : 404 ms P-R-T Axes : 041 021 030 degrees QTc Int : 413 ms Normal sinus rhythm Normal ECG When compared with ECG of 05-OCT-2018 14:04, MANUAL COMPARISON REQUIRED, DATA IS UNCONFIRMED Confirmed by EDGAR DIGGS, ISATU ([id number]), editor publications MAIKOL FREY ([id number]) on 10/07/2018 1:40:59 PM Referred By: CASSANDRA Confirmed By:ISATU HERNÁNDEZ MD
[2018-10-06] MEDS: 0.9% NaCl Peripheral Flush Adult/Peds IV (06:06)
[2018-10-06 06:56] VITALS: PULSE 74; RESP 16; O2SAT 92
[2018-10-06] MEDS: Budesonide Respules 0.5 MG/2 ML AMPUL.NEB. INHALATION (06:56)
[2018-10-06] MEDS: Albuterol 2.5 MG/3 ML VIAL.NEB. INHALATION (06:56)
[2018-10-06 08:01] VITALS: PULSE 69
[2018-10-06 08:50] VITALS: BP 115/76; PULSE 71; RESP 16; TEMP 36.6; O2SAT 97
[2018-10-06] MEDS: Vitamin E 400 UNITS Capsule PO (11:29)
[2018-10-06] MEDS: Famotidine 20 MG Tablet PO (11:29)
--- NOTE | 2018-10-06 14:48 | STRESSREP ---
Stress Test Report Date: 10/06/2018 Procedure: Pharmacologic stress nuclear imaging study Indications: Chest pain Consent: Per the patient Procedure: The patient underwent pharmacologic (Regadenoson) evaluation with a peak heart rate of 102 beats per minute (69 %predicted maximal heart rate) and a peak blood pressure of 144/72 mmHg. The baseline ECG demonstrated normal sinus rhythm right bundle branch block. EKG during lexiscan infusion revealed no significant change from baseline consistent with ischemic changes. EKG post infusion revealed no significant change from baseline [There were no cardiac dysrhythmias pretest, during pharmacologic infusion, or recovery]. The examination was discontinued secondary to completion of protocol. Impression: 1. Lexiscan stress test test is negative for Lexiscan infusion induced EKG changes of ischemia. 2. Lexiscan stress test test is positive for Lexiscan infusion induced chest tightness which could be a nonspecific response. 3. Results of the nuclear portion of the test is as below Myocardial perfusion imaging study: Technique: The patient was injected with 11.7 millicuries of technetium 99m Cardiolite and subsequently rest SPECT Cardiolite nuclear imaging was obtained in the horizontal long, vertical long, and short axis views. The patient underwent pharmacologic (Regadenoson) evaluation. Please see above for details. The patient was injected with 33.6 millicuries of technetium 99m Cardiolite and subsequently stress SPECT Cardiolite nuclear imaging was obtained in the horizontal long, vertical long, and short axis views. A gated Cardiolite study at peak stress was obtained. Interpretation: Rest and stress SPECT Cardiolite nuclear imaging status post realignment, normalization, and attenuation correction demonstrate normal myocardial radioisotope uptake in both the rest and stress images. Gated images reveal no significant regional wall motion abnormalities. The reported LVEF is greater than 70 %. Impression: 1. There is no evidence of significant ischemia or infarction. 2. Estimated ejection fraction is greater than 70%. This note was generated with [employer] software. It may contain incorrect words, spelling, and punctuation that were not noted in checking the note before signing.
--- NOTE | 2018-10-06 15:07 | DCINST_ITS ---
- Discharge Diagnoses Current Active Problems: Current Active and Chronic Problems (Last Updated 09/17/18 @ 08:09 by Bianca Jacob) Chest pain, unspecified (Acute) You will use the following diet at home:: Calorie/Carbohydrate Controlled (specify 1200, 1400, etc) - 1800 florencia Your food should be the consistency of: Regular Your liquids should be the consistency of: Regular/Thin Discharge Activity: Return to Normal Activity Weight Bearing Status: Full weight bearing Allergies/Adverse Reactions: Allergies castor oil Allergy (Verified 10/05/18 14:02) Unknown frovatriptan succinate [From Frova] Allergy (Verified 10/05/18 14:02) Rash sumatriptan [From Imitrex] Allergy (Verified 10/05/18 14:02) Rash sumatriptan succinate [From Imitrex] Allergy (Verified 10/05/18 14:02) Rash vitamin E (d-alpha tocopherol) Allergy (Verified 10/05/18 14:02) Chest tightness VITAMIN E IV SOLUTION IVP DYE Allergy (Uncoded 10/05/18 14:02) Vomiting Medications to take at Discharge Vitamin E 400 units PO DAILY 10/13/13 Warfarin [Coumadin] 5 mg PO DAILY 10/13/13 proMETHazine tablet [Phenergan tablet] 25 mg PO Q8H PRN PRN 12/17/16 Budesonide/Formoterol 160/4.5 [Symbicort 160/4.5 Mcg Inhaler (SP)] 2 puff INHALATION BID 10/05/18 Clonazepam 0.5 mg PO DAILY PRN PRN 10/05/18 Famotidine 20 mg PO DAILY 10/05/18 Vitamin B Complex [B Complex] 1 tab PO DAILY 10/05/18 Primary Care Physician: Theo Watters Chi, MD [Primary Care Provider] - Please follow up with your Primary Care Physician in: next week, you will need your INR rechecked Test Results: Test results from this visit will be discussed in further detail at your follow- up appointment, if applicable.
--- NOTE | 2018-10-06 15:55 | CHAPLAIN ---
Type of Pastoral Visit _x__ Initial Visit ___ Follow-up Visit ___ On-call Visit ___ General Patient Visit ___ Spiritual Assessment ___ Family Conference ___ Bereavement ___ Rapid Response ___ Code Blue ___ Other (describe below) Pastoral Care Referral From _x__ Patient ___ Family ___ Nurse ___ Physician ___ Private Detective ___ Insulation Technician ___ Other (describe below) Sacrament/Intervention ___ Active listening ___ Anointing ___ Muslim ___ Bereavement ___ Communion ___ Salena exploration ___ ___ Life review ___ Prayer ___ Reconciliation ___ Sacrament of Sick _x__ Supportive presence ___ Wedding ___ Other (describe below) Pastoral Comments
--- NOTE | 2018-10-06 17:38 | PCM.DC.SUM ---
Discharge Date and Diagnosis Date of Admission: 10/05/18 Date of Discharge: 10/06/18 - Primary Discharge Diagnosis #1 musculoskeletal chest pain #2 type 2 diabetes #3 chronic use of warfarin - Secondary Discharge Diagnosis Chronic Problems (Last Updated 09/17/18 @ 08:09 by Bianca Jacob) History of DVT (deep vein thrombosis) (Chronic) Cardiac murmur (Chronic) Factor 5 Leiden mutation, heterozygous (Chronic) Edema of left lower leg due to peripheral venous insufficiency (Chronic) HLD (hyperlipidemia) (Chronic) Borderline diabetes (Chronic) Obesity (Chronic) DM2 (diabetes mellitus, type 2) (Chronic) Depression (Chronic) Hospital Course and Treatment Operations: None Procedures: Nuclear stress test Summary of Care Provided: The patient is a 73 year old F who was seen in the emergency room at [facility] with chief complaint of epigastric pain radiating into her substernal chest area. Work-up in the emergency room occluded and an EKG, cardiac enzymes, and a chest x-ray all of which were unremarkable. Patient was placed in the observation status and enzymes were cycled, these remained negative, patient underwent a resting pharmacological nuclear stress test that was negative for reversible ischemia. On 10/06/2018, patient was seen and examined: On examination she appeared in good health and spirits. Vital signs as documented. Skin warm and dry and without overt rashes. Neck without JVD. Lungs clear. Heart exam notable for regular rhythm, normal sounds and absence of murmurs, rubs or gallops. Abdomen unremarkable and without evidence of organomegaly, masses, or abdominal aortic enlargement. Extremities nonedematous. Neuro: Cranial nerves II through XII are grossly intact, no focal motor deficits were noted, sensation to light touch and pinprick is intact. Psych: Patient is alert and oriented x3, she does not appear anxious or depressed On 10/06/2018, patient was seen and examined felt to be in stable condition for discharge home - Physical Exam Vital Signs Temp Pulse Resp BP Pulse Ox 97.9 F 71 16 115/76 97 10/06/18 08:50 10/06/18 08:50 10/06/18 08:50 10/06/18 08:50 10/06/18 08:50 Oxygen Flow Rate (L/min) 2 Oxygen Delivery Method Room Air Weight: 66.7 kg Body Mass Index (BMI) 30.7 Intake and Output for Last 24 Hours 10/04/18 10/05/18 10/06/18 23:59 23:59 23:59 Intake Total 480 / 480 240 / 240 Balance 480 / 480 240 / 240 Laboratory Tests Past 24 Hrs 10/05/18 10/05/18 10/06/18 17:30 20:25 04:40 WBC 7.1 RBC 3.52 L Hgb 9.7 L Hct 32.6 L MCV 92.6 MCH 27.6 MCHC 29.8 L RDW Std Deviation 47.7 H RDW Coeff of Mallika 14.1 Plt Count 241 MPV 10.3 Immature Gran % (Auto) 0.300 Neut % (Auto) 56.5 Lymph % (Auto) 30.0 [place] % (Auto) 9.0 Eos % (Auto) 3.6 Baso % (Auto) 0.6 Absolute Neuts (auto) 4.0 Absolute Lymphs (auto) 2.14 Absolute Nucleated RBC 0.00 Nucleated RBC % 0 PT INR Sodium Potassium Chloride Carbon Dioxide Anion Gap BUN Creatinine Estim Creat Clear Calc Est GFR (MDRD) Af Amer Est GFR (MDRD) Non-Af BUN/Creatinine Ratio Glucose Calcium Troponin I < 0.015 < 0.015 10/06/18 10/06/18 04:40 04:40 WBC RBC Hgb Hct MCV MCH MCHC RDW Std Deviation RDW Coeff of Mallika Plt Count MPV Immature Gran % (Auto) Neut % (Auto) Lymph % (Auto) [place] % (Auto) Eos % (Auto) Baso % (Auto) Absolute Neuts (auto) Absolute Lymphs (auto) Absolute Nucleated RBC Nucleated RBC % PT 13.4 INR 1.0 Sodium 143 Potassium 4.0 Chloride 110 H Carbon Dioxide 26.0 Anion Gap 7 BUN 9 Creatinine 0.54 L Estim Creat Clear Calc 51.97 Est GFR (MDRD) Af Amer 143 Est GFR (MDRD) Non-Af 118 BUN/Creatinine Ratio 16.8 Glucose 90 Calcium 7.9 L Troponin I Discharge Activity: Return to Normal Activity Weight Bearing Status: Full weight bearing Home Medications: Medications to take at Discharge Vitamin E 400 units PO DAILY 10/13/13 Warfarin [Coumadin] 5 mg PO DAILY 10/13/13 proMETHazine tablet [Phenergan tablet] 25 mg PO Q8H PRN PRN 12/17/16 Budesonide/Formoterol 160/4.5 [Symbicort 160/4.5 Mcg Inhaler (SP)] 2 puff INHALATION BID 10/05/18 Clonazepam 0.5 mg PO DAILY PRN PRN 10/05/18 Famotidine 20 mg PO DAILY 10/05/18 Vitamin B Complex [B Complex] 1 tab PO DAILY 10/05/18 Primary Care Physician: Theo Watters Chi, MD [Primary Care Provider] - Please follow up with your Primary Care Physician in: next week, you will need your INR rechecked Medical Necessity - Tobacco Use Smoking Status: Former smoker Tobacco Use: Cigarettes Meaningful Use Info Meaningful Use Diagnoses (Choose all that apply): None applicable Code Visit OBSV E&M: 21083 Observation care discharge
== END 2018-10-06 15:08 | disposition home or self-care (01) ==
LOC: ED 16:16 → PCU 16:32
PROVIDERS: Admitting Provider Student in an Organized Health Care Education/Training Program; Emergency Provider Emergency Medicine; Family Provider Family Medicine Geriatric Medicine; PCP Family Medicine Geriatric Medicine; Visit Provider Internal Medicine
DX: R07.89 Other chest pain (principal); E11.9 Type 2 diabetes mellitus without complications; D68.51 Activated protein C resistance; E78.5 Hyperlipidemia, unspecified; F32.9 Major depressive disorder, single episode, unspecified; E66.9 Obesity, unspecified; I87.2 Venous insufficiency (chronic) (peripheral); R42 Dizziness and giddiness; R11.2 Nausea with vomiting, unspecified; K44.9 Diaphragmatic hernia without obstruction or gangrene; G43.909 Migraine, unspecified, not intractable, without status migrainosus; Z86.718 Personal history of other venous thrombosis and embolism; Z79.899 Other long term (current) drug therapy; Z79.01 Long term (current) use of anticoagulants; Z79.51 Long term (current) use of inhaled steroids; Z68.30 Body mass index [BMI] 30.0-30.9, adult; Z71.3 Dietary counseling and surveillance; Z87.891 Personal history of nicotine dependence
CPT/HCPCS: 36415; 71045; 78452; 80048; 83880; 84484; 85025; 85610; 93005; 93017; 94640; 96361; 96374; 99218; 99284; A9500; A4216; G0378; J2405; J2785

== ENCOUNTER → 2018-10-18 | Outpatient (CLI) | payer MEDICARE, BC, SELFPAY ==
[2018-10-05 17:06] VITALS: BMI 30.7
== END | disposition home or self-care (01) ==
LOC: PSN 16:31
PROVIDERS: Family Provider Family Medicine Geriatric Medicine; PCP Family Medicine Geriatric Medicine; Referring Provider Family Medicine Geriatric Medicine; Visit Provider Family Medicine Geriatric Medicine
DX: R69 Illness, unspecified (principal)
CPT/HCPCS: 87633

== ENCOUNTER → 2019-01-05 | Outpatient (CLI) | payer MEDICARE, BC, SELFPAY ==
[2019-01-05 13:50] VITALS: BMI 30.7
== END | disposition home or self-care (01) ==
LOC: LABSPEC 16:22
PROVIDERS: Family Provider Family Medicine Geriatric Medicine; PCP Family Medicine Geriatric Medicine; Referring Provider Nurse Practitioner Women's Health; Visit Provider Nurse Practitioner Women's Health
DX: R30.0 Dysuria (principal)
CPT/HCPCS: 87086; 87088

== ENCOUNTER → 2019-01-13 | Outpatient (CLI) | payer MEDICARE, BC, SELFPAY ==
[2019-01-05 13:50] VITALS: BMI 30.7
[2019-01-13 12:53] LABS: Absolute Lymphocyte Count 2.11 X10^3/uL (0.83-4.51); Absolute Neutrophil Count 6.2 X10^3/uL (2.0-7.7); Basophil# 0.06 X10^3/uL; Basophil% 0.6 % (0-1); Eosinophil# 0.33 X10^3/uL; Eosinophils% 3.4 % (0-5); Hematocrit 34.1 % (37-47); Hemoglobin 10.4 g/dL (12.0-15.0); Lymphocyte # 2.11 X10^3/ul (4.0); Mean Corp Hgb Conc 30.5 g/dL (32-36); Mean Corpuscular Hgb 26.2 pg (27.0-32.0); Mean Corpuscular Volume 85.9 fL (81-99); Mean Platelet Vol. 10.8 fl (6.2-12.0); Monocyte# 0.82 X10^3/uL; Monocyte% 8.6 % (0-10); NRBC Flagged by Analyzer 0 % (0-5); Neutrophil % 64.8 % (47-70); Platelet Count 343 K/mm3 (150-450); RBC Distribution Width CV 15.9 % (11.6-14.6); RBC Distribution Width SD 49.8 fl (35.1-43.9); Red Blood Count 3.97 M/mm3 (4.2-5.4); White Blood Count 9.6 K/mm3 (4.4-11.0)
[2019-01-13 13:31] LABS: Vitamin D,25 Hydroxy 21.1 ng/mL (29.95-100.01)
[2019-01-13 13:36] LABS: AST(SGOT) 16 U/L (15-37); Alanine Aminotransfer ALT/SGPT 26 U/L (13-56); Albumin, Serum 3.5 g/dL (3.2-5.0); Alkaline Phosphatase 60 U/L (45-117); Anion Gap 6 (5-15); BUN 11 mg/dL (7-18); BUN/Creat Ratio 17.4 RATIO (10-20); Calcium,Total 8.7 mg/dL (8.5-10.1); Chloride 105 mmol/L (98-107); Creatinine, Serum 0.63 mg/dL (0.55-1.02); EST Glomerular Filtration Rate 98 mL/min (>60); Est Glom Filt Rate - Afr Amer 118 mL/min (>60); Globulin 3.6 g/dL (2.2-4.2); Glucose 84 mg/dL (74-106); Protein, Total 7.1 g/dL (6.4-8.2); Sodium Level 138 mmol/L (136-145); Thyroid Stim Hormone (TSH) 0.76 uIU/mL (0.358-3.74)
== END | disposition home or self-care (01) ==
LOC: POLAB3 10:17
PROVIDERS: Family Provider Family Medicine Geriatric Medicine; PCP Family Medicine Geriatric Medicine; Visit Provider Family Medicine Geriatric Medicine
DX: E11.9 Type 2 diabetes mellitus without complications (principal); E55.9 Vitamin D deficiency, unspecified; R53.83 Other fatigue
CPT/HCPCS: 36415; 80053; 82306; 84443; 85025

== ENCOUNTER → 2019-01-17 | Outpatient (CLI) | payer MEDICARE, BC, SELFPAY ==
[2019-01-05 13:50] VITALS: BMI 30.7
--- NOTE | 2019-01-17 13:07 | US_ITS ---
STUDY: ULTRASOUND OF THE FEMALE PELVIS - COMPLETE REASON FOR EXAM: Female, 73 years old. Pelvic pain. LMP: Status post hysterectomy and bilateral oophorectomy. TECHNIQUE: Transabdominal TECHNICAL QUALITY: Adequate. COMPARISON: None. FINDINGS: The uterus and bilateral ovaries are not visualized consistent with known history of prior hysterectomy and bilateral oophorectomy. There is no fluid in the cul-de-sac. The volume of the bladder was 125 ml. Polycystic ovary disease: No. US/Pelvic (Non ) IMPRESSION: Status post hysterectomy and bilateral oophorectomy. Remainder of the pelvis ultrasound unremarkable. Electronically Signed: Radha Mcgee MD at 3:30 EDT , Service support ,
== END | disposition home or self-care (01) ==
PROVIDERS: Family Provider Family Medicine Geriatric Medicine; PCP Family Medicine Geriatric Medicine; Referring Provider Obstetrics & Gynecology; Visit Provider Obstetrics & Gynecology
DX: R10.2 Pelvic and perineal pain (principal)
CPT/HCPCS: 76856

== ENCOUNTER → 2019-02-15 10:44 | Outpatient (CLI) | payer MEDICARE, BC, SELFPAY ==
[2019-01-19 09:52] VITALS: BMI 29.0
--- NOTE | 2019-02-15 10:50 | RAD_ITS ---
STUDY: X-RAY - LUMBOSACRAL SPINE REASON FOR EXAM: Female, 73 years old. Low back pain with lumbar radiculopathy. TECHNIQUE: 7 view(s) of the lumbosacral spine were obtained. COMPARISON: Radiographs of the lumbar spine dated January 06, 2018. FINDINGS: Normal lumbar lordosis with the patient in neutral position. Lateral views were obtained with the patient in neutral, flexion and extension. There is decrease in range of motion particularly with flexion. There is no substantial scoliosis. There is normal alignment of the vertebrae. There is demineralization of the lumbar vertebrae. The patient has compression fractures of all of the imaged thoracic vertebral segments as well as the lumbar vertebral bodies. Patient has had vertebral plasties of L4, L3, L1, T12, T11, T10, T9 and T8. There is narrowing of several posterior disc spaces. The sacrum is obscured by bowel gas and stool. There is atherosclerotic calcification of the abdominal aorta without a demonstrated aneurysm. RAD/L/S Spine w Bend Min 6 Vw IMPRESSION: Severe osteoporosis with compression fracture of every imaged thoracic and lumbar segment most of which have been treated with kyphoplasty. Electronically Signed: Carlee Valerio MD at 2:12 EST , Service support ,
== END ==
PROVIDERS: Family Provider Family Medicine Geriatric Medicine; PCP Family Medicine Geriatric Medicine; Referring Provider Family Medicine Geriatric Medicine; Visit Provider Family Medicine Geriatric Medicine
DX: M54.16 Radiculopathy, lumbar region (principal)
CPT/HCPCS: 72114

== ENCOUNTER → 2019-03-28 10:57 | Outpatient (CLI) | payer MEDICARE, BC, SELFPAY ==
[2019-01-19 09:52] VITALS: BMI 29.0
--- NOTE | 2019-03-28 11:01 | RAD_ITS ---
STUDY: X-RAY CHEST REASON FOR EXAM: Female, 73 years old. BRONCHITIS. TECHNIQUE: PA and lateral views of the chest. COMPARISON: Comparison is made with prior study dated October 05, 2018. FINDINGS: Stable elevation of the right hemidiaphragm. The lungs are clear and expanded. There is no demonstrated pleural abnormality. Normal size heart. Normal mediastinum and agueda. Normal visualized pulmonary arteries. There is atherosclerotic calcification of the aortic arch with tortuosity. There is demineralization of the osseous structures. The patient is status post multilevel vertebroplasty of the lower thoracic and lumbar vertebrae with loss of heights. Normal visualized ribs, clavicles, and shoulders. Moderate sized hiatal hernia. RAD/Chest PA and Lateral IMPRESSION: Stable examination. No acute abnormality is seen. Electronically Signed: Leonides Manriquez, at 10:59 EST , Service support ,
== END ==
PROVIDERS: Family Provider Family Medicine Geriatric Medicine; PCP Family Medicine Geriatric Medicine; Referring Provider Family Medicine Geriatric Medicine; Visit Provider Family Medicine Geriatric Medicine
DX: J40 Bronchitis, not specified as acute or chronic (principal)
CPT/HCPCS: 71046

== ENCOUNTER → 2019-07-18 | Outpatient (CLI) | payer MEDICARE, BC, SELFPAY ==
[2019-07-08 11:11] VITALS: BMI 29.0
[2019-07-18 11:53] LABS: Absolute Lymphocyte Count 2.08 X10^3/uL (0.83-4.51); Absolute Neutrophil Count 7.1 X10^3/uL (2.0-7.7); Basophil# 0.04 X10^3/uL; Basophil% 0.4 % (0-1); Eosinophil# 0.09 X10^3/uL; Eosinophils% 0.9 % (0-5); Hematocrit 41.9 % (37-47); Hemoglobin 13.3 g/dL (12.0-15.0); Lymphocyte # 2.08 X10^3/ul (4.0); Lymphocyte % 20.3 % (19-41); Mean Corp Hgb Conc 31.7 g/dL (32-36); Mean Corpuscular Hgb 30.6 pg (27.0-32.0); Mean Corpuscular Volume 96.5 fL (81-99); Monocyte# 0.83 X10^3/uL; Monocyte% 8.1 % (0-10); NRBC Flagged by Analyzer 0 % (0-5); Neutrophil # 7.09 X10^3/uL (2.7-7.7); Neutrophil % 68.9 % (47-70); Platelet Count 273 K/mm3 (150-450); RBC Distribution Width CV 15.5 % (11.6-14.6); RBC Distribution Width SD 54.9 fl (35.1-43.9); Red Blood Count 4.34 M/mm3 (4.2-5.4); White Blood Count 10.3 K/mm3 (4.4-11.0)
[2019-07-18 12:07] LABS: Vitamin D,25 Hydroxy 23.9 ng/mL
[2019-07-18 12:14] LABS: AST(SGOT) 18 U/L (15-37); Alanine Aminotransfer ALT/SGPT 29 U/L (13-56); Albumin, Serum 3.9 g/dL (3.2-5.0); Alkaline Phosphatase 53 U/L (45-117); Anion Gap 7 (5-15); BUN 11 mg/dL (7-18); BUN/Creat Ratio 16.3 RATIO (10-20); Calcium,Total 9.1 mg/dL (8.5-10.1); Chloride 104 mmol/L (98-107); Creatinine, Serum 0.67 mg/dL (0.55-1.02); EST Glomerular Filtration Rate 91 mL/min (>60); Est Glom Filt Rate - Afr Amer 110 mL/min (>60); Globulin 3.9 g/dL (2.2-4.2); Glucose 93 mg/dL (74-106); Potassium 3.6 mmol/L (3.5-5.1); Protein, Total 7.8 g/dL (6.4-8.2); Sodium Level 137 mmol/L (136-145); Thyroid Stim Hormone (TSH) 1.87 uIU/mL (0.358-3.74)
== END | disposition home or self-care (01) ==
PROVIDERS: PCP Family Medicine Geriatric Medicine; Referring Provider Family Medicine Geriatric Medicine; Visit Provider Family Medicine Geriatric Medicine
DX: E55.9 Vitamin D deficiency, unspecified (principal); R53.83 Other fatigue
CPT/HCPCS: 36415; 80053; 82306; 84443; 85025

== ENCOUNTER → 2019-10-21 | Outpatient (CLI) | payer MEDICARE, BC, SELFPAY ==
[2019-07-08 11:11] VITALS: BMI 29.0
== END | disposition home or self-care (01) ==
LOC: POLAB3 12:40 → LABSPEC 12:41
PROVIDERS: PCP Family Medicine Geriatric Medicine; Visit Provider Family Medicine Geriatric Medicine
DX: N39.0 Urinary tract infection, site not specified (principal)
CPT/HCPCS: 87086; 87088

== ENCOUNTER → 2019-11-18 | Outpatient (CLI) | payer MEDICARE, BC, SELFPAY ==
[2019-07-08 11:11] VITALS: BMI 29.0
--- NOTE | 2019-11-18 11:25 | US_ITS ---
STUDY: THYROID ULTRASOUND REASON FOR EXAM: Female, 74 years old. NODULES follow-up TECHNIQUE: Ultrasound evaluation of the thyroid was performed with real-time and static mccoy-scale imaging. COMPARISON: Prior thyroid ultrasound of 09/15/2016 FINDINGS: RIGHT LOBE: The right lobe of the thyroid gland measures 5.9 x 2.3 x 2.7 cm. There is a heterogeneous echotexture. Multiple thyroid nodules are identified. The largest are: Nodule 1. 1.8 x 1.9 x 0.9 cm, well marginated, solid and predominantly isoechoic/minor hypoechoic component, wider than tall with no other untoward features. TR 3. Nodule 2. 0.9 x 0.9 x 0.8 cm purely cystic and well-defined. TR 0. Nodule 3. 0.7 x 1.0 x 0.9 cm, solid, partly isoechoic and partly hypoechoic, well-defined, wider than tall. TR 3. LEFT LOBE: The left lobe of the thyroid gland measures 5.5 x 1.7 x 2.0 cm. There is a heterogeneous echotexture. Multiple nodules are identified. The larger nodules are: Nodule 1. 0.6 x 0.6 x 0.5 cm well-defined, solid predominantly hypoechoic wider than tall with no other untoward features. TR 4. Nodule 2. 0.8 x 0.9 x 0.7 cm well-defined cystic nodule. TR 0. Nodule 3. 0.5 x 0.4 x 0.5 cm solid well-defined hypoechoic nodule wider than tall. TR 4. ISTHMUS: The isthmus measures 0.4 centimeter. US/Thyroid IMPRESSION: No substantial change in thyroid size with heterogeneous parenchyma. TR 3 isoechoic/hypoechoic solid nodule of the upper lobe of the right thyroid measuring 1.8 x 1.9 x 0.9 cm well marginated and reduced in size from the prior exam. Continued follow-up recommended. Cystic nodule measuring 0.9 x 0.9 x 0.8 cm right thyroid not identified on the prior exam. TR 3 nodule of the right thyroid measuring 0.7 x 1.0 x 0.9 cm, solid partly isoechoic and partly hypoechoic similar in appearance and slightly larger on [id number] comparison to prior exam of 2017. Continued follow-up recommended 0.6 x 0.6 x 0.5 cm well-defined predominantly hypoechoic TR 4 nodule of the left thyroid not substantially changed from the preceding exam. Continued follow-up recommended 0.8 x 0.9 x 0.7 cm well defined purely cystic nodule of the left thyroid increased in size from the prior exam. TR 0. 0.5 x 0.4 x 0.5 cm solid hypoechoic nodule of the left thyroid not substantially changed from the prior exam. TR 4. Continued follow-up recommended. Electronically Signed: Marci Ceballos MD at 16:55 EDT , Service support ,
== END | disposition home or self-care (01) ==
LOC: US 11:23
PROVIDERS: PCP Family Medicine Geriatric Medicine; Referring Provider Family Medicine Geriatric Medicine; Visit Provider Family Medicine Geriatric Medicine
DX: E04.1 Nontoxic single thyroid nodule (principal)
CPT/HCPCS: 76536

== ENCOUNTER → 2019-12-09 | Outpatient (CLI) | payer MEDICARE, BC, SELFPAY ==
[2019-07-08 11:11] VITALS: BMI 29.0
[2019-12-09 12:34] LABS: Basophil# 0.04 X10^3/uL; Basophil% 0.6 % (0-1); Eosinophils% 4.5 % (0-5); Hematocrit 34.3 % (37-47); Hemoglobin 10.8 g/dL (12.0-15.0); Lymphocyte % 22.3 % (19-41); Mean Corp Hgb Conc 31.5 g/dL (32-36); Mean Corpuscular Hgb 30.5 pg (27.0-32.0); Mean Corpuscular Volume 96.9 fL (81-99); Mean Platelet Vol. 10.4 fl (6.2-12.0); Monocyte# 0.83 X10^3/uL; Monocyte% 12.3 % (0-10); NRBC Flagged by Analyzer 0 % (0-5); Neutrophil % 59.3 % (47-70); Platelet Count 267 K/mm3 (150-450); RBC Distribution Width CV 14.6 % (11.6-14.6); RBC Distribution Width SD 51.9 fl (35.1-43.9); Red Blood Count 3.54 M/mm3 (4.2-5.4); White Blood Count 6.7 K/mm3 (4.4-11.0)
[2019-12-09 12:55] LABS: ALB/GLOB Ratio 0.9 RATIO (0.9-2.4); AST(SGOT) 13 U/L (15-37); Alanine Aminotransfer ALT/SGPT 24 U/L (13-56); Alkaline Phosphatase 35 U/L (45-117); Anion Gap 4 (5-15); BUN 8 mg/dL (7-18); BUN/Creat Ratio 14.1 RATIO (10-20); Calcium,Total 7.6 mg/dL (8.5-10.1); Chloride 107 mmol/L (98-107); Creatinine, Serum 0.57 mg/dL (0.55-1.02); EST Glomerular Filtration Rate 110 mL/min (>60); Est Glom Filt Rate - Afr Amer 133 mL/min (>60); Globulin 3.2 g/dL (2.2-4.2); Glucose 83 mg/dL (74-106); Potassium 3.7 mmol/L (3.5-5.1); Protein, Total 6.2 g/dL (6.4-8.2); Sodium Level 139 mmol/L (136-145)
== END | disposition home or self-care (01) ==
LOC: POLAB3 11:07
PROVIDERS: PCP Family Medicine Geriatric Medicine; Visit Provider Family Medicine Geriatric Medicine
DX: R69 Illness, unspecified (principal)
CPT/HCPCS: 36415; 80053; 85025

== ENCOUNTER → 2020-01-16 | Outpatient (CLI) | payer MEDICARE, BC, SELFPAY ==
[2019-12-19 15:01] VITALS: BMI 29.0
[2020-01-16 12:33] LABS: Absolute Lymphocyte Count 2.26 X10^3/uL (0.83-4.51); Absolute Neutrophil Count 6.2 X10^3/uL (2.0-7.7); Basophil# 0.04 X10^3/uL; Basophil% 0.4 % (0-1); Eosinophil# 0.36 X10^3/uL; Eosinophils% 3.7 % (0-5); Hematocrit 38.8 % (37-47); Hemoglobin 12.1 g/dL (12.0-15.0); Lymphocyte # 2.26 X10^3/ul (4.0); Mean Corp Hgb Conc 31.2 g/dL (32-36); Mean Corpuscular Hgb 29.2 pg (27.0-32.0); Mean Corpuscular Volume 93.7 fL (81-99); Mean Platelet Vol. 10.9 fl (6.2-12.0); Monocyte# 0.88 X10^3/uL; NRBC Flagged by Analyzer 0 % (0-5); Neutrophil % 63.2 % (47-70); Platelet Count 305 K/mm3 (150-450); RBC Distribution Width CV 14.9 % (11.6-14.6); RBC Distribution Width SD 51.7 fl (35.1-43.9); Red Blood Count 4.14 M/mm3 (4.2-5.4); White Blood Count 9.8 K/mm3 (4.4-11.0)
[2020-01-16 13:33] LABS: ALB/GLOB Ratio 0.9 RATIO (0.9-2.4); AST(SGOT) 19 U/L (15-37); Alanine Aminotransfer ALT/SGPT 32 U/L (13-56); Albumin, Serum 3.5 g/dL (3.2-5.0); Alkaline Phosphatase 42 U/L (45-117); Anion Gap 8 (5-15); BUN 6 mg/dL (7-18); BUN/Creat Ratio 8.5 RATIO (10-20); Calcium,Total 8.5 mg/dL (8.5-10.1); Chloride 103 mmol/L (98-107); Creatinine, Serum 0.71 mg/dL (0.55-1.02); EST Glomerular Filtration Rate 85 mL/min (>60); Est Glom Filt Rate - Afr Amer 103 mL/min (>60); Globulin 3.9 g/dL (2.2-4.2); Glucose 86 mg/dL (74-106); Potassium 3.6 mmol/L (3.5-5.1); Protein, Total 7.4 g/dL (6.4-8.2); Sodium Level 137 mmol/L (136-145); Thyroid Stim Hormone (TSH) 1.49 uIU/mL (0.358-3.74)
[2020-01-16 17:34] LABS: Vitamin D,25 Hydroxy 20.4 ng/mL
== END | disposition home or self-care (01) ==
LOC: POLAB3 10:35
PROVIDERS: PCP Family Medicine Geriatric Medicine; Visit Provider Family Medicine Geriatric Medicine
DX: E55.9 Vitamin D deficiency, unspecified (principal); R53.83 Other fatigue
CPT/HCPCS: 36415; 80053; 82306; 84443; 85025

== ENCOUNTER → 2020-06-18 14:08 | Outpatient (CLI) | payer MEDICARE, BC, SELFPAY ==
[2019-12-19 15:01] VITALS: BMI 29.0
--- NOTE | 2020-06-18 14:17 | RAD_ITS ---
STUDY: X-RAY - LUMBAR SPINE REASON FOR EXAM: Female, 74 years old. BACK PAIN TECHNIQUE: 3 view(s) of the lumbar spine were obtained. COMPARISON: Comparison is made with prior examination 02/15/2019. FINDINGS: Normal lumbar lordosis. There is no substantial scoliosis. There is a normal alignment of the vertebrae. There is generalized demineralization of the vertebral bodies. The patient is status post multilevel vertebroplasty with loss of height of multiple dorsal and lumbar vertebrae. There is atherosclerotic calcification of the abdominal aorta without a demonstrated aneurysm. RAD/Lumbar Spine 2 or 3 Views IMPRESSION: Stable examination. Electronically Signed: Leonides Manriquez MD at 18:57 EDT , Service support ,
== END ==
PROVIDERS: PCP Family Medicine Geriatric Medicine; Referring Provider Anesthesiology Pain Medicine; Visit Provider Anesthesiology Pain Medicine
DX: M54.5 Low back pain (principal)
CPT/HCPCS: 72100

== ENCOUNTER → 2020-07-18 10:43 | Outpatient (CLI) | payer MEDICARE, BC, SELFPAY ==
[2020-07-05 13:03] VITALS: BMI 32.0
[2020-07-18 12:19] LABS: Absolute Lymphocyte Count 2.48 X10^3/uL (0.83-4.51); Absolute Neutrophil Count 6.4 X10^3/uL (2.0-7.7); Basophil# 0.04 X10^3/uL; Basophil% 0.4 % (0-1); Eosinophil# 0.06 X10^3/uL; Eosinophils% 0.6 % (0-5); Hematocrit 37.2 % (37-47); Hemoglobin 11.2 g/dL (12.0-15.0); Lymphocyte # 2.48 X10^3/ul (0.83-4.51); Lymphocyte % 24.4 % (19-41); Mean Corp Hgb Conc 30.1 g/dL (32-36); Mean Corpuscular Hgb 28.2 pg (27.0-32.0); Mean Corpuscular Volume 93.7 fL (81-99); Mean Platelet Vol. 11.4 fl (6.2-12.0); Monocyte# 0.99 X10^3/uL; Monocyte% 9.7 % (0-10); NRBC Flagged by Analyzer 0 % (0-5); Neutrophil # 6.44 X10^3/uL (2.7-7.7); Neutrophil % 63.4 % (47-70); Platelet Count 285 K/mm3 (150-450); RBC Distribution Width CV 15.4 % (11.6-14.6); RBC Distribution Width SD 52.8 fl (35.1-43.9); Red Blood Count 3.97 M/mm3 (4.2-5.4); White Blood Count 10.2 K/mm3 (4.4-11.0)
[2020-07-18 12:33] LABS: Vitamin D,25 Hydroxy 21.4 ng/mL
[2020-07-18 12:46] LABS: ALB/GLOB Ratio 0.9 RATIO (0.9-2.4); AST(SGOT) 15 U/L (15-37); Alanine Aminotransfer ALT/SGPT 30 U/L (13-56); Albumin, Serum 3.3 g/dL (3.2-5.0); Alkaline Phosphatase 67 U/L (45-117); Anion Gap 6 (5-15); BUN 12 mg/dL (7-18); Calcium,Total 8.8 mg/dL (8.5-10.1); Chloride 102 mmol/L (98-107); Creatinine, Serum 0.67 mg/dL (0.55-1.02); EST Glomerular Filtration Rate 91 mL/min (>60); Est Glom Filt Rate - Afr Amer 111 mL/min (>60); Globulin 3.8 g/dL (2.2-4.2); Glucose 69 mg/dL (74-106); Protein, Total 7.1 g/dL (6.4-8.2); Sodium Level 136 mmol/L (136-145); Thyroid Stim Hormone (TSH) 1.34 uIU/mL (0.358-3.74)
== END ==
PROVIDERS: PCP Family Medicine Geriatric Medicine; Visit Provider Family Medicine Geriatric Medicine
DX: E55.9 Vitamin D deficiency, unspecified (principal); R53.83 Other fatigue
CPT/HCPCS: 36415; 80053; 82306; 84443; 85025

== ENCOUNTER → 2020-07-20 12:55 | Outpatient (CLI) | payer MEDICARE, BC, SELFPAY ==
[2020-07-05 13:03] VITALS: BMI 32.0
--- NOTE | 2020-07-20 12:56 | ECHOD_ITS ---
Reason For Study: MURMUR Procedure This was a 2D Doppler, Color Flow transthoracic echocardiogram. The exam was of adequate technical quality. Exam performed in department. Left Ventricle Normal LV size. Sigmoid septum. Left ventricular systolic function is normal. The estimated ejection fraction is 65 %. Diastolic function is indeterminate. No regional wall motion abnormalities noted. Right Ventricle Normal RV size. Normal systolic function. Atria Normal left atrium. Normal right atrium. No doppler evidence for ASD. Mitral Valve There is mild mitral annular calcification. Mild focal mitral valve calcification of the anterior leaflet. The mitral papillary muscle appears thickened and/or calcified. Trivial mitral valve insufficiency. Tricuspid Valve Normal tricuspid valve. Trivial tricuspid valve insufficiency. Right ventricular systolic pressure estimated to be 28 mmHg. Aortic Valve Trisinus/trileaflet aortic valve. Mild focal aortic valve calcification. Pulmonic Valve The pulmonic valve is not well visualized. Trivial pulmonic valve insufficiency. Great Vessels Normal sized aortic root. Pericardium/Pleural Trivial pericardial effusion. There are no echocardiographic indications of cardiac tamponade. MMode/2D Measurements & Calculations LVIDd: 3.8 cm IVSd: 1.1 cm Ao root diam: 3.1 cm LVIDs: 2.2 cm LVPWd: 0.92 cm RVDd: 2.7 cm FS: 41.7 % LAV(MOD-bp): 28.7 ml LA A4 area: 11.9 cm2 LA dimension(2D): 4.2 cm LAV(MOD-bp) Indexed: 17.9 ml/m2 LAV(MOD-sp2): 28.3 ml LAV(MOD-sp4): 26.8 ml RA A4 area: 9.5 cm2 Time Measurements MV dec time: 0.18 sec Doppler Measurements & Calculations MV E max go: 77.8 cm/sec Lat Peak E' Go: 5.7 cm/sec Med Peak E' Go: 5.7 cm/sec MV A max go: 96.6 cm/sec E/E' lat: 13.7 E/E' med: 13.5 MV E/A: 0.80 Ao V2 max: 160.6 cm/sec LV V1 max: 90.9 cm/sec PA V2 max: 71.8 cm/sec Ao max P.3 mmHg LV V1 max P.3 mmHg Ao V2 mean: 97.1 cm/sec LV V1 mean P.6 mmHg Ao mean P.4 mmHg LV V1 mean: 60.2 cm/sec Ao V2 VTI: 29.7 cm LV V1 VTI: 20.1 cm PI end-d go: 115.8 cm/sec TR max go: 251.3 cm/sec TR max P.3 mmHg ECHO/Echo Complete Interpretation Summary Left ventricular systolic function is normal. The estimated ejection fraction is 65 %. Sigmoid septum. There is mild mitral annular calcification. Mild focal mitral valve calcification of the anterior leaflet. The mitral papillary muscle appears thickened and/or calcified. Trivial mitral valve insufficiency. Trivial tricuspid valve insufficiency. Mild focal aortic valve calcification. Trivial pulmonic valve insufficiency. Trivial pericardial effusion. There are no echocardiographic indications of cardiac tamponade. Right ventricular systolic pressure estimated to be 28 mmHg. Diastolic function is indeterminate. Ordering Physician: Jose E Soria Referring Physician: Theo Watters Chi Performed By: Lila Palacios, SAIRA, RVT
== END ==
PROVIDERS: PCP Family Medicine Geriatric Medicine; Referring Provider Internal Medicine Cardiovascular Disease; Visit Provider Internal Medicine Cardiovascular Disease
DX: R07.9 Chest pain, unspecified (principal); R01.1 Cardiac murmur, unspecified; R00.1 Bradycardia, unspecified
CPT/HCPCS: 93306

== ENCOUNTER 2020-08-04 04:45 | Inpatient (IN) | payer MEDICARE, BC, SELFPAY ==
[2020-07-05 13:03] VITALS: BMI 32.0
[2020-08-04] VITALS (13 sets, daily range): BP systolic 108–146; BP diastolic 45–61; PULSE 53–90; RESP 12–20; TEMP 36.5–36.8; O2SAT 94–98; BMI 33.1; BMI 31.3
--- NOTE | 2020-08-04 04:57 | EKG12_ITS ---
Test Reason : CP Blood Pressure : / mmHG Vent. Rate : 065 BPM Atrial Rate : 065 BPM P-R Int : 142 ms QRS Dur : 076 ms QT Int : 394 ms P-R-T Axes : 016 005 080 degrees QTc Int : 409 ms Sinus rhythm with occasional Premature ventricular complexes ST & T wave abnormality, consider lateral ischemia Abnormal ECG Confirmed by EDGAR DIGGS, ISATU ([id number]), news assignment editor PETR DIANE ([id number]) on 08/07/2020 9:32:16 AM Referred By: MADDY Confirmed By:ISATU HERNÁNDEZ MD
--- NOTE | 2020-08-04 04:58 | EDS_ITS ---
HPI History of Present Illness Chief Complaint: Chest Pain Informant: patient and EMS Onset/Context/Timing Onset: Hours (approx 9-10) Activity at onset: gradual and light activity Timing: Continuous (not sure what it did while I was sleeping) Quality: Positive for Pain Current Severity: Gone (in arms still, but cp resolved) Maximum Severity: Severe Worsened By: Nothing; Not Worsened By Breathing Relieved By: NTG (x3 given by EMS) Associated Symptoms: Positive for Nausea and Vomiting; Negative for Diaphoresis, Dyspnea, Cough, Fever, Lightheadedness and Palpitations Narrative Narrative: 75-year-old presenting with acute onset chest pain that started yesterday evening, she thinks it may have gone away when she went to sleep but woke her up from sleep this morning. Radiates to both upper extremities. No history of heart disease that she knows of. She is on warfarin for a clotting disorder and a history of a DVT. [facility] Medical History (Updated 08/04/20 @ 06:[address] Frank Redmond MD) Cardiac murmur Depression DM2 (diabetes mellitus, type 2) Factor 5 Leiden mutation, heterozygous Fibromyalgia History of DVT (deep vein thrombosis) HLD (hyperlipidemia) Nodular goiter Home Medications vitamin E (dl, acetate) 400 units PO DAILY 10/13/13 [History Last Taken 10/01/18] warfarin 5 mg PO DAILY 10/13/13 [History Last Taken 10/04/18] vitamin B complex 1 tab PO DAILY 10/05/18 [History Last Taken 10/01/18] ascorbic acid (vitamin C) 500 mg capsule 500 mg PO DAILY cap 07/08/19 [History Last Taken Unknown] budesonide-formoterol HFA 160 mcg-4.5 mcg/actuation aerosol inhaler 2 puff INHALATION DAILY PRN g 07/08/19 [History Last Taken Unknown] cholecalciferol (vitamin D3) 10 mcg (400 unit) capsule 10 mcg PO DAILY 07/08/19 [History Last Taken Unknown] mirtazapine 30 mg tablet 30 mg PO QHS 07/05/20 [History Last Taken Unknown] mirtazapine 7.5 mg tablet 7.5 mg PO QHS 07/05/20 [History Last Taken Unknown] pantoprazole 40 mg tablet,delayed release 40 mg PO DAILY 07/05/20 [History Last Taken Unknown] pregabalin 50 mg capsule 50 mg PO QHS cap 07/05/20 [History Last Taken Unknown] Allergy/AdvReac Type Severity Reaction Status Date / Time castor oil Allergy Unknown Verified 07/05/20 13:04 frovatriptan succinate Allergy Rash Verified 07/05/20 13:04 [From Frova] sumatriptan [From Imitrex] Allergy Rash Verified 07/05/20 13:04 sumatriptan succinate Allergy Rash Verified 07/05/20 13:04 [From Imitrex] vitamin E (d-alpha Allergy Chest Verified 07/05/20 13:04 tocopherol) tightness ezetimibe [From Zetia] AdvReac Severe Severe GI Verified 07/05/20 13:04 upset/stomach pain levofloxacin [From Levaquin] AdvReac Intermediate pain Verified 07/05/20 13:04 IVP DYE Allergy Vomiting Uncoded 07/05/20 13:04 Family History Father CAD (coronary artery disease) Myocardial infarction Mother Colon cancer Surgical History H/O: hysterectomy Hx of appendectomy Social History Smoking Status: Former smoker alcohol intake: never seatbelt use: always do you feel safe at home: Yes additional social history: [facility] ED Constitutional Constitutional ED: Reports malaise; Denies chills or fever(s) Eyes Eyes: Denies change in vision or diplopia ENT ENT ED: Denies rhinorrhea or sore throat Cardiovascular Cardiovascular: Reports as per HPI, chest pain, radiating jaw, neck or arm pain and vomiting; Denies palpitations Respiratory/Chest Respiratory/Chest: Denies cough or dyspnea Gastrointestinal Gastrointestinal: Reports nausea and vomiting; Denies abdominal pain or diarrhea Genitourinary Genitourinary ED: Denies dysuria or hematuria Musculoskeletal Musculoskeletal: Denies back pain or neck pain Integumentary Denies abscess or rash Neurologic Neurologic: Denies headache(s), paresthesias or weakness Psychiatric Psychiatric: Denies anxiety or suicidal thoughts EXAM Physical Exam Const Vital Signs: 08/04/20 04:48 08/04/20 04:57 Temperature 98.2 F Temperature Source Oral Pulse Rate 58 L Respiratory Rate 12 Blood Pressure 133/60 H Blood Pressure Mean 84 Pulse Ox 97 97 Oxygen Delivery Method Room Air Room Air Positive well nourished and well developed General Appearance ED: well developed and NAD HEENT Reports moist mucous membranes normocephalic and atraumatic Eyes PERRL and EOMs intact bilaterally Neck full ROM and supple Resp normal respiratory effort and clear to auscultation bilaterally Cardio regular rate, regular rhythm and no murmurs; Negative for diaphoretic Peripheral Pulses: pulses 2+ throughout GI non-tender and non-distended Auscultation: normoactive bowel sounds Palpation: soft Back/Spine no CVA tenderness General Back: other FROM Extremity normal to inspection and no calf tenderness General Extremety ED: Negative for edema, pulses abnormal or tenderness General Extremity: Negative for edema or pulses abnormal Neuro oriented x3, CN's II-XII intact bilaterally and no sensory deficits noted Sensorium / Orientation: awake and alert Motor Exam: strength 5/5 throughout Skin no rashes or lesions noted and no wounds Heart Score History: Highly Suspicious ECG: Nonspecific Repolarization Age: >/= 65 years Risk Factors: 1 or 2 Risk Factors Troponin: </= Normal Limit Score: 6 MDM MDM MDM Narrative Medical decision making narrative: Aspirin 324 was given by EMS, so no more was needed. She also was given nitroglycerin x3, with complete resolution of her chest discomfort. She still had some arm discomfort, we put some nitroglycerin paste on her chest, on reevaluation her arm discomfort resolved. My concern is that the patient has been having wavering unstable angina. Her troponin is usually negative, it was still within the normal range tonight, but slightly elevated from negative at 0.023. She has hyperlipidemia and borderline diabetes, both risk factors for coronary disease. Her INR is subtherapeutic which may or may not have anything to do with this tonight, but I think admission for further risk stratification is warranted. Admitted to observation telemetry. Lab Data Attestation: I reviewed the patient's lab results. Labs: Laboratory Results - last 24 hr 08/04/20 08/04/20 08/04/20 04:55 04:55 04:55 WBC 9.2 RBC 3.32 L Hgb 9.7 L Hct 31.0 L MCV 93.4 MCH 29.2 MCHC 31.3 L RDW Std Deviation 52.0 H RDW Coeff of Mallika 15.3 H Plt Count 265 MPV 10.2 Immature Gran % (Auto) 1.300 H Neut % (Auto) 63.9 Lymph % (Auto) 27.0 [place] % (Auto) 7.2 Eos % (Auto) 0.3 Baso % (Auto) 0.3 Absolute Neuts (auto) 5.9 Absolute Lymphs (auto) 2.48 Nucleated RBC % 0 PT 15.1 H INR 1.3 APTT 31.3 Sodium 138 Potassium 3.7 Chloride 104 Carbon Dioxide 27.0 Anion Gap 7 BUN 12 Creatinine 0.69 Estim Creat Clear Calc 54.32 Est GFR (MDRD) Af Amer 106 Est GFR (MDRD) Non-Af 88 BUN/Creatinine Ratio 17.3 Glucose 113 H Calcium 8.3 L Troponin I 0.023 Radiography Chest X-Ray - ED: 1 View, Read by ED Physician and No Acute Disease Diagnostic Testing: Radiology Impression Chest X-Ray 08/04/20 05:25 IMPRESSION: No acute cardiopulmonary disease perceived. at 0541 Reported and signed by: Lewis Crews MD Electronically Signed: Lewis Crews MD at 5:39 EDT Tel , Service support , EKG Initial EKG: Attestation: I personally reviewed and interpreted this EKG as follows: Interpretation: Sinus Rhythm, No Acute Injury Pattern, RBBB (incomplete) and Inverted T-Waves Comments: RSR' w/ T wave inversions ant-septal Prior: Changed (c/w 09/2018) Discharge Plan Dx/Rx/DC Orders Clinical Impression: Chest pain, Subtherapeutic international normalized ratio (INR) Disposition Disposition: Acute Care Hospital [facility]
[2020-08-04] MEDS: Nitroglycerin Oint 1 INCH PACKET TD (05:00)
[2020-08-04] MEDS: Ondansetron 4 MG/2 ML Vial IV (05:10)
[2020-08-04 05:13] LABS: Absolute Lymphocyte Count 2.48 X10^3/uL (0.83-4.51); Absolute Neutrophil Count 5.9 X10^3/uL (2.0-7.7); Basophil# 0.03 X10^3/uL; Basophil% 0.3 % (0-1); Eosinophil# 0.03 X10^3/uL; Eosinophils% 0.3 % (0-5); Hemoglobin 9.7 g/dL (12.0-15.0); Lymphocyte # 2.48 X10^3/ul (0.83-4.51); Mean Corp Hgb Conc 31.3 g/dL (32-36); Mean Corpuscular Hgb 29.2 pg (27.0-32.0); Mean Corpuscular Volume 93.4 fL (81-99); Mean Platelet Vol. 10.2 fl (6.2-12.0); Monocyte# 0.66 X10^3/uL; Monocyte% 7.2 % (0-10); NRBC Flagged by Analyzer 0 % (0-5); Neutrophil # 5.85 X10^3/uL (2.7-7.7); Neutrophil % 63.9 % (47-70); Platelet Count 265 K/mm3 (150-450); RBC Distribution Width CV 15.3 % (11.6-14.6); Red Blood Count 3.32 M/mm3 (4.2-5.4); White Blood Count 9.2 K/mm3 (4.4-11.0)
--- NOTE | 2020-08-04 05:25 | RAD_ITS ---
HISTORY: chest pain EXAM: XR Chest 1 View: COMPARISON: March 28, 2019 FINDINGS: # of images incl. paperwork: 1 Calcific plaque within the aortic arch persists. Bone cement within the vertebral bodies from vertebroplasty is similar. Left basilar lung scarring Heart is not enlarged. No acute osseous pathology perceived. Pulmonary vascularity is distinct. No effusions. RAD/Chest 1 View (Portable) IMPRESSION: No acute cardiopulmonary disease perceived. at 0541 Reported and signed by: Lewis Crews MD Electronically Signed: Lewis Crews MD at 5:39 EDT Tel , Service support ,
[2020-08-04 05:27] LABS: International Normalized Ratio 1.3; Partial Thromboplast Time 31.3 Seconds (24.1-36.2); Prothrombin Time (Protime)PT. 15.1 SECONDS (11.7-14.9)
[2020-08-04 05:39] LABS: Anion Gap 7 (5-15); BUN 12 mg/dL (7-18); BUN/Creat Ratio 17.3 RATIO (10-20); Calcium,Total 8.3 mg/dL (8.5-10.1); Chloride 104 mmol/L (98-107); Creatinine, Serum 0.69 mg/dL (0.55-1.02); EST Glomerular Filtration Rate 88 mL/min (>60); Est Glom Filt Rate - Afr Amer 106 mL/min (>60); Estimated Creatinine Clearance 54.32 ml/min; Glucose 113 mg/dL (74-106); Potassium 3.7 mmol/L (3.5-5.1); Sodium Level 138 mmol/L (136-145)
--- NOTE | 2020-08-04 06:55 | NURSING ---
pcu cp obs dr lozano
--- NOTE | 2020-08-04 07:18 | EKG12_ITS ---
Test Reason : CP ADMIT Blood Pressure : / mmHG Vent. Rate : 057 BPM Atrial Rate : 057 BPM P-R Int : 146 ms QRS Dur : 080 ms QT Int : 434 ms P-R-T Axes : 017 005 041 degrees QTc Int : 422 ms Sinus bradycardia Otherwise normal ECG When compared with ECG of 04-AUG-2020 04:50, MANUAL COMPARISON REQUIRED, DATA IS UNCONFIRMED Confirmed by EDAGR DIGGS, ISATU ([id number]), offline editor PETR DIANE ([id number]) on 08/07/2020 9:41:57 AM Referred By: ARBEN Confirmed By:ISATU HERNÁNDEZ MD
[2020-08-04 08:26] LABS: Cholesterol 200 mg/dL (200); High Density Lipoprotein 54 mg/dL; Triglycerides 104 mg/dL; Very Low Density Lipoprotein 21 mg/dL (5-40)
[2020-08-04 12:49] LABS: Iron 25 ug/dL (50-170)
--- NOTE | 2020-08-04 13:38 | CON.PCM.CA_ITS ---
Assessment & Plan Assessment/Plan (1) Chest pain: (2) Subtherapeutic international normalized ratio (INR): (3) NSTEMI (non-ST elevated myocardial infarction): PLAN: 75-year-old patient, seen and evaluated today at bedside along with the nursing staff Patient presented with symptoms of retrosternal chest pain it had been for the last 2 days while she was at bed. Former smoker and she had significant family history of CAD. She had a cardiac catheterization done in [address] Soria Also she had history of a hypercoagulable state and has been on anticoagulation with warfarin. Mild elevation of cardiac biomarkers was noted with abnormal EKG underlying electrocardiogram revealed a right bundle branch block. Cardiac exam essentially normal S1-S2 is regular there is no murmur no systolic or diastolic murmur No pericardial rub and no gallop. Plan and recommendation; 1. I reviewed all the current medication we will hold on Coumadin and we added Lovenox to the current treatment for management of CAD with non-ST elevation [place] 2. She had sinus bradycardia on telemetry and hold on beta-anant 3. She is on statin atorvastatin 40 mg a day 4. Patient mentioned that she had significant history of hiatus hernia and she cannot tolerate aspirin. #5 we will check a repeat cardiac biomarkers this evening and in the morning #6 recommend to evaluate further with cardiac catheterization/right radial artery approach by Dr. Soria on Thursday 7. Echocardiogram to evaluate and assess LV function on Thursday HPI Consult Data Date of Consult: 08/04/20 Attending Care Provider: Cardio consultation requested for evaluation of this patient who had a history of CAD and had a cardiac cath in [address] Soria Presentation with symptoms of chest pain retrosternal and had mild elevation of cardiac biomarkers. High sensitive troponins. HPI Narrative HPI Narrative: CARL MONTGOMERY, is a 75 F who presents [facility] Medical History (Updated 08/04/20 @ 13:[address] Radha Delarosa MD) Cardiac murmur Depression DM2 (diabetes mellitus, type 2) Factor 5 Leiden mutation, heterozygous Fibromyalgia History of DVT (deep vein thrombosis) HLD (hyperlipidemia) Nodular goiter Home Medications vitamin E (dl, acetate) 400 units PO DAILY 10/13/13 [History Last Taken 08/02/20 08:00] warfarin 4.5 mg PO DAILY 10/13/13 [History Last Taken 08/03/20 17:00] vitamin B complex 1 tab PO DAILY 10/05/18 [History Last Taken 08/02/20 08:00] ascorbic acid (vitamin C) 500 mg capsule 500 mg PO DAILY cap 07/08/19 [History Last Taken 08/02/20 08:00] budesonide-formoterol HFA 160 mcg-4.5 mcg/actuation aerosol inhaler 2 puff INHALATION DAILY PRN g 07/08/19 [History Last Taken Unknown] cholecalciferol (vitamin D3) 10 mcg (400 unit) capsule 10 mcg PO DAILY 07/08/19 [History Last Taken 08/02/20 08:00] mirtazapine 7.5 mg tablet 7.5 mg PO QHS 07/05/20 [History Last Taken 08/03/20 21:00] pantoprazole 40 mg tablet,delayed release 40 mg PO DAILY 07/05/20 [History Last Taken 08/02/20 08:00] pregabalin 50 mg capsule 50 mg PO BID cap 07/05/20 [History Last Taken 08/03/20 21:00] Allergy/AdvReac Type Severity Reaction Status Date / Time castor oil Allergy Unknown Verified 07/05/20 13:04 frovatriptan succinate Allergy Rash Verified 07/05/20 13:04 [From Frova] sumatriptan [From Imitrex] Allergy Rash Verified 07/05/20 13:04 sumatriptan succinate Allergy Rash Verified 07/05/20 13:04 [From Imitrex] vitamin E (d-alpha Allergy Chest Verified 07/05/20 13:04 tocopherol) tightness ezetimibe [From Zetia] AdvReac Severe Severe GI Verified 07/05/20 13:04 upset/stomach pain levofloxacin [From Levaquin] AdvReac Intermediate pain Verified 07/05/20 13:04 IVP DYE Allergy Vomiting Uncoded 07/05/20 13:04 Family History Father CAD (coronary artery disease) Myocardial infarction Mother Colon cancer Surgical History H/O: hysterectomy Hx of appendectomy Social History Smoking Status: Former smoker alcohol intake: never seatbelt use: always do you feel safe at home: Yes additional social history: Physical Exam Const alert, oriented x3 and healthy appearing Orientation / Consciousness: awake Neck supple Chest inspection of chest normal and palpation of chest normal Cardio regular rate, regular rhythm, S1 normal heart sound, S2 normal heart sound, no murmurs and no rub Palpation: normal PMI Rate: regular rate and bradycardia GI normal to inspection, nondistended, normoactive bowel sounds Extremity normal to inspection and no clubbing, cyanosis or edema Neuro oriented x3, moves all extremities, no focal motor deficits, no sensory deficits noted and gait normal Psych mental status grossly normal
--- NOTE | 2020-08-04 13:45 | CASEMGMT ---
RN CM Face to Face with patient for initial transition planning/care coordination assessment. RN CM introduced self and role at [facility]. Patient lying in bed, alert and oriented, son at bedside. Patient willing to participate in assessment and is able to answer all questions appropriately. Care providers, pharmacy, and demographics verified. Patient wishes to discharge home, denies need for home health at this time. Patient states she has no further needs or concerns at this time. CM to follow for discharge planning needs that may arise. PCP: Duong Specialists: Estella, pilot plant operator; Basali, pain Preferred Pharmacy: [facility] [address] Insurance: Brandie CHAVARRIA Prescription Benefit: yes Living Will/HPOA: yes, daughter Yane Mayorga HPOA LNOK: daughters, son Living Arrangements: Patient lives alone in a 2 story home with bed and bath on first floor. Patient states she is independent at home. 0 Transportation: self/ children DME/HHC: Patient states she has raised toilet, grab bars, and medical alert at home. Patient denied previous HHC or SNF. Disposition Plan: Patient to discharge home with family support and follow-up plans in place. Lynnette COMBS, RN, CM
--- NOTE | 2020-08-04 16:12 | HP.PCM.HOS_ITS ---
HPI - General General Date of Admission: 08/04/20 Chief Complaint: Chest pain HPI Narrative CARL MONTGOMERY, is a 75 F who presents to the emergency room at [facility] with a chief complaint of substernal precordial chest pain, her first episode was last night was from 7 PM until midnight, she states she went to bed at that time and awoke again at 3 AM early this morning with chest pain. She described the chest pain as pressure-like in nature, it was accompanied by nausea. She did not complain of any radiation to her neck or down her arm. W ork-up in the emergency room included labs which showed a low hemoglobin at 9.7, chemistry panel was unremarkable, troponin was normal. EKG showed T wave changes in leads V1 and V2, there is no evidence of a STEMI. Patient will be placed into observation status on PCU, serial isoenzymes will be obtained if these remain normal, patient will have a stress test today. [facility] Medical History (Updated 08/04/20 @ 13:[address] Radha Delarosa MD) Cardiac murmur Depression DM2 (diabetes mellitus, type 2) Factor 5 Leiden mutation, heterozygous Fibromyalgia History of DVT (deep vein thrombosis) HLD (hyperlipidemia) Nodular goiter Home Medications vitamin E (dl, acetate) 400 units PO DAILY 10/13/13 [History Last Taken 08/02/20 08:00] warfarin 4.5 mg PO DAILY 10/13/13 [History Last Taken 08/03/20 17:00] vitamin B complex 1 tab PO DAILY 10/05/18 [History Last Taken 08/02/20 08:00] ascorbic acid (vitamin C) 500 mg capsule 500 mg PO DAILY cap 07/08/19 [History Last Taken 08/02/20 08:00] budesonide-formoterol HFA 160 mcg-4.5 mcg/actuation aerosol inhaler 2 puff INHALATION DAILY PRN g 07/08/19 [History Last Taken Unknown] cholecalciferol (vitamin D3) 10 mcg (400 unit) capsule 10 mcg PO DAILY 07/08/19 [History Last Taken 08/02/20 08:00] mirtazapine 7.5 mg tablet 7.5 mg PO QHS 07/05/20 [History Last Taken 08/03/20 21:00] pantoprazole 40 mg tablet,delayed release 40 mg PO DAILY 07/05/20 [History Last Taken 08/02/20 08:00] pregabalin 50 mg capsule 50 mg PO BID cap 07/05/20 [History Last Taken 08/03/20 21:00] Allergy/AdvReac Type Severity Reaction Status Date / Time castor oil Allergy Unknown Verified 07/05/20 13:04 frovatriptan succinate Allergy Rash Verified 07/05/20 13:04 [From Frova] sumatriptan [From Imitrex] Allergy Rash Verified 07/05/20 13:04 sumatriptan succinate Allergy Rash Verified 07/05/20 13:04 [From Imitrex] vitamin E (d-alpha Allergy Chest Verified 07/05/20 13:04 tocopherol) tightness ezetimibe [From Zetia] AdvReac Severe Severe GI Verified 07/05/20 13:04 upset/stomach pain levofloxacin [From Levaquin] AdvReac Intermediate pain Verified 07/05/20 13:04 IVP DYE Allergy Vomiting Uncoded 07/05/20 13:04 Family History Father CAD (coronary artery disease) Myocardial infarction Mother Colon cancer Surgical History H/O: hysterectomy Hx of appendectomy Social History Smoking Status: Former smoker alcohol intake: never seatbelt use: always do you feel safe at home: Yes additional social history: ROS Constitutional Constitutional: Denies anorexia, change in weight, chills, fatigue, fever(s), malaise, night sweats or weakness Eyes Eyes: Denies blurry vision, change in vision, discharge from eye(s) or eye pain ENT HEENT: Denies abnormal hearing or ear pain Cardiovascular Cardiovascular: Reports chest pain; Denies claudication, dyspnea on exertion, edema, lightheadedness, orthopnea, palpitations or rapid heart rate Respiratory/Chest Respiratory/Chest: Denies cough, dyspnea, excessive phlegm production, hemoptysis, productive cough, shortness of breath at rest or shortness of breath with exertion Gastrointestinal Gastrointestinal: Denies abdominal pain, constipation, diarrhea, hematemesis, hematochezia, melena, nausea or vomiting Genitourinary Genitourinary: Denies dysuria, hematuria, urinary frequency, urinary hesitancy, urinary incontinence or urinary urgency Musculoskeletal Musculoskeletal: Denies back pain, joint pain, joint stiffness, joint swelling, myalgias or neck pain Neurologic Neurologic: Denies abnormal gait, abnormal speech, dizziness, focal weakness, headache(s), loss of vision, numbness, other visual disturbances, paresthesias, syncope or tingling Psychiatric Psychiatric: Denies anxiety, cognitive impairment, depression, irritability, mood swings or suicidal ideation Endocrine Endocrinology: Denies change in body appearance, cold intolerance, excessive swe ating, heat intolerance, polydipsia or polyuria Hematologic/Lymphatic Hematologic/Lymphatic: Denies none, anemia, easy bleeding, easy bruising or lymphadenopathy Allergic/Immunologic Allergic/Immunologic: Denies rhinitis, hives, urticaria, eczemia or asthma Vital Signs Vital Signs Vital Signs: 08/04/20 04:48 08/04/20 04:57 08/04/20 05:00 Temperature 98.2 F Temperature Source Oral Pulse Rate 58 L 62 Pulse Strength Respiratory Rate 12 Respiratory Effort Respiratory Depth Respiratory Pattern Blood Pressure 133/60 H 131/60 H Blood Pressure Mean 84 Blood Pressure Source Blood Pressure Position Blood Pressure Location Pulse Ox 97 97 Oxygen Delivery Method Room Air Room Air 08/04/20 06:37 08/04/20 06:41 08/04/20 07:27 Temperature 97.9 F 97.7 F L Temperature Source Temporal Temporal Pulse Rate 55 L 58 L 55 L Pulse Strength Respiratory Rate 16 20 H 16 Respiratory Effort Respiratory Depth Respiratory Pattern Blood Pressure 108/55 L 111/61 119/50 L Blood Pressure Mean 72 77 73 Blood Pressure Source Monitor Blood Pressure Position Semi-Fowlers Blood Pressure Location Right Arm Pulse Ox 96 94 96 Oxygen Delivery Method Room Air Room Air Room Air 08/04/20 07:48 08/04/20 07:55 08/04/20 07:59 Temperature Temperature Source Pulse Rate 53 L Pulse Strength Normal (2+) Respiratory Rate Respiratory Effort Normal Non-Labored Respiratory Depth Normal Respiratory Pattern Normal Blood Pressure Blood Pressure Mean Blood Pressure Source Blood Pressure Position Blood Pressure Location Pulse Ox 97 Oxygen Delivery Method Room Air 08/04/20 08:52 08/04/20 12:50 08/04/20 15:00 Temperature 98.2 F Temperature Source Temporal Pulse Rate 56 L 90 Pulse Strength Respiratory Rate 16 Respiratory Effort Respiratory Depth Respiratory Pattern Blood Pressure 136/55 H Blood Pressure Mean 82 Blood Pressure Source Monitor Blood Pressure Position Semi-Fowlers Blood Pressure Location Right Arm Pulse Ox 96 Oxygen Delivery Method Room Air Room Air Physical Exam Const alert, oriented x3, no apparent distress and healthy appearing General Appearance: cooperative, well kempt and well developed Orientation / Consciousness: awake, oriented to person, oriented to place and oriented to time HEENT normocephalic and moist oral mucous membranes Eyes PERRL, EOMs intact bilaterally and conjunctivae normal Neck nuchal rigidity, supple, no JVD, thyroid normal and no carotid bruits General: trachea midline Resp normal respiratory effort and clear to auscultation bilaterally Auscultation: Negative for rales, rhonchi or wheezes Cardio regular rate, regular rhythm, no murmurs, no rub and no gallops GI normal to inspection, nondistended, normoactive bowel sounds, soft to palpation, non-tender and non-distended Extremity no clubbing, cyanosis or edema Skin no rashes or lesions noted, no wounds and no jaundice General Skin Exam: no breakdown Neuro oriented x3, CN's II-XII intact bilaterally, moves all extremities, no focal motor deficits and no sensory deficits noted Sensorium / Orientation: awake and alert Speech: speech normal Psych thought process normal and affect normal Lab / Micro Data Result Diagrams: 08/04/20 04:55 08/04/20 04:55 Labs: Laboratory Results - last 24 hr 08/04/20 08/04/20 08/04/20 04:55 04:55 04:55 WBC 9.2 RBC 3.32 L Hgb 9.7 L Hct 31.0 L MCV 93.4 MCH 29.2 MCHC 31.3 L RDW Std Deviation 52.0 H RDW Coeff of Mallika 15.3 H Plt Count 265 MPV 10.2 Immature Gran % (Auto) 1.300 H Neut % (Auto) 63.9 Lymph % (Auto) 27.0 [place] % (Auto) 7.2 Eos % (Auto) 0.3 Baso % (Auto) 0.3 Absolute Neuts (auto) 5.9 Absolute Lymphs (auto) 2.48 Nucleated RBC % 0 PT 15.1 H INR 1.3 APTT 31.3 Sodium 138 Potassium 3.7 Chloride 104 Carbon Dioxide 27.0 Anion Gap 7 BUN 12 Creatinine 0.69 Estim Creat Clear Calc 54.32 Est GFR (MDRD) Af Amer 106 Est GFR (MDRD) Non-Af 88 BUN/Creatinine Ratio 17.3 Glucose 113 H Calcium 8.3 L Iron Troponin I 0.023 Triglycerides Cholesterol LDL Cholesterol VLDL Cholesterol HDL Cholesterol 08/04/20 08/04/20 08/04/20 07:50 10:04 10:05 WBC RBC Hgb Hct MCV MCH MCHC RDW Std Deviation RDW Coeff of Mallika Plt Count MPV Immature Gran % (Auto) Neut % (Auto) Lymph % (Auto) [place] % (Auto) Eos % (Auto) Baso % (Auto) Absolute Neuts (auto) Absolute Lymphs (auto) Nucleated RBC % PT INR APTT Sodium Potassium Chloride Carbon Dioxide Anion Gap BUN Creatinine Estim Creat Clear Calc Est GFR (MDRD) Af Amer Est GFR (MDRD) Non-Af BUN/Creatinine Ratio Glucose Calcium Iron 25 L Troponin I 0.057 H 0.079 H Triglycerides 104 Cholesterol 200 LDL Cholesterol 125 VLDL Cholesterol 21 HDL Cholesterol 54 Radiology Impression Chest X-Ray 08/04/20 05:25 IMPRESSION: No acute cardiopulmonary disease perceived. at 0541 Reported and signed by: Lewis Crews MD Electronically Signed: Lewis Crews MD at 5:39 EDT Tel , Service support , Assessment & Plan Assessment/Plan (1) Chest pain: PLAN: 1. Chest pain-patient will be placed in observation status on PCU, cardiac enzymes will be cycled, if these remain negative she will have a stress test today. 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
[2020-08-04] MEDS: Aspirin 81 MG TAB.CHEW PO (17:16)
[2020-08-04] MEDS: Mirtazapine 15 MG Tablet 7.5 MG PO (21:19)
[2020-08-04] MEDS: Enoxaparin 40 MG/0.4 ML Syringe SC (21:19)
[2020-08-04] MEDS: Pregabalin 50 MG Capsule PO (21:19)
[2020-08-04] MEDS: Atorvastatin Calcium 40 MG Tablet PO (21:19)
[2020-08-05] VITALS (11 sets, daily range): BP systolic 121–133; BP diastolic 47–70; PULSE 56–81; RESP 16; TEMP 36.5–36.9; O2SAT 95–98
[2020-08-05] MEDS: Budesonide Respules 0.5 MG/2 ML AMPUL.NEB. INHALATION (07:09)
[2020-08-05] MEDS: Albuterol 2.5 MG/3 ML VIAL.NEB. INHALATION (07:09)
[2020-08-05 07:11] LABS: Absolute Lymphocyte Count 2.13 X10^3/uL (0.83-4.51); Absolute Neutrophil Count 5.1 X10^3/uL (2.0-7.7); Basophil# 0.03 X10^3/uL; Basophil% 0.4 % (0-1); Eosinophil# 0.04 X10^3/uL; Eosinophils% 0.5 % (0-5); Hematocrit 30.7 % (37-47); Hemoglobin 9.4 g/dL (12.0-15.0); Lymphocyte # 2.13 X10^3/ul (0.83-4.51); Lymphocyte % 26.3 % (19-41); Mean Corp Hgb Conc 30.6 g/dL (32-36); Mean Corpuscular Hgb 29.2 pg (27.0-32.0); Mean Corpuscular Volume 95.3 fL (81-99); Mean Platelet Vol. 10.9 fl (6.2-12.0); Monocyte# 0.65 X10^3/uL; NRBC Flagged by Analyzer 0 % (0-5); Neutrophil # 5.14 X10^3/uL (2.7-7.7); Neutrophil % 63.4 % (47-70); Platelet Count 257 K/mm3 (150-450); RBC Distribution Width CV 15.6 % (11.6-14.6); RBC Distribution Width SD 54.3 fl (35.1-43.9); Red Blood Count 3.22 M/mm3 (4.2-5.4); White Blood Count 8.1 K/mm3 (4.4-11.0)
[2020-08-05 07:27] LABS: Anion Gap 4 (5-15); BUN 11 mg/dL (7-18); BUN/Creat Ratio 17.2 RATIO (10-20); Calcium,Total 8.2 mg/dL (8.5-10.1); Chloride 106 mmol/L (98-107); Creatinine, Serum 0.64 mg/dL (0.55-1.02); EST Glomerular Filtration Rate 96 mL/min (>60); Est Glom Filt Rate - Afr Amer 116 mL/min (>60); Estimated Creatinine Clearance 51.38 ml/min; Glucose 102 mg/dL (74-106); Potassium 4.2 mmol/L (3.5-5.1); Sodium Level 139 mmol/L (136-145)
[2020-08-05] MEDS: Aspirin 81 MG TAB.CHEW PO (08:07)
[2020-08-05] MEDS: Vitamin E 400 UNITS Capsule PO (08:07)
[2020-08-05] MEDS: Vitamin B Comp W-C Capsule 1 CAP PO (08:07)
[2020-08-05] MEDS: Ascorbic Acid 500 MG Tablet PO (08:08)
[2020-08-05] MEDS: Pantoprazole Sodium 40 MG Tablet PO (08:08)
[2020-08-05] MEDS: Pregabalin 50 MG Capsule PO ×2 (08:08→22:21)
[2020-08-05] MEDS: Cholecalciferol (VIT D3) 25 MCG TABLET (1,000 UNITS) PO (08:08)
[2020-08-05] MEDS: Enoxaparin 40 MG/0.4 ML Syringe SC ×2 (08:08→22:22)
--- NOTE | 2020-08-05 11:57 | PN.CARD_ITS ---
Subjective Subjective Patient seen today at bedside along with the nursing staff No symptoms of chest pain reported she is comfortable in bed. Objective Data Vital Signs: Vital Signs Temp Pulse Resp BP Pulse Ox 97.7 F L 58 L 16 121/49 H 98 08/05/20 08:17 08/05/20 08:17 08/05/20 08:17 08/05/20 08:17 08/05/20 08:20 Oxygen Delivery Method Room Air Weight: 149 lb 14.629 oz Body Mass Index (BMI) 31.3 Intake & Output: Intake and Output for Last 24 Hours 08/03/20 08/04/20 08/05/20 23:59 23:59 23:59 Intake Total 360 / 360 Balance 360 / 360 Lab / Micro Data Result Diagrams: 08/05/20 04:27 08/05/20 04:27 Labs: Laboratory Results - last 24 hr 08/04/20 08/04/20 08/05/20 10:05 15:56 01:15 WBC RBC Hgb Hct MCV MCH MCHC RDW Std Deviation RDW Coeff of Mallika Plt Count MPV Immature Gran % (Auto) Neut % (Auto) Lymph % (Auto) [place] % (Auto) Eos % (Auto) Baso % (Auto) Absolute Neuts (auto) Absolute Lymphs (auto) Nucleated RBC % Sodium Potassium Chloride Carbon Dioxide Anion Gap BUN Creatinine Estim Creat Clear Calc Est GFR (MDRD) Af Amer Est GFR (MDRD) Non-Af BUN/Creatinine Ratio Glucose Calcium Iron 25 L Troponin I 0.076 H 0.067 H 08/05/20 08/05/20 08/05/20 04:27 04:27 04:27 WBC 8.1 RBC 3.22 L Hgb 9.4 L Hct 30.7 L MCV 95.3 MCH 29.2 MCHC 30.6 L RDW Std Deviation 54.3 H RDW Coeff of Mallika 15.6 H Plt Count 257 MPV 10.9 Immature Gran % (Auto) 1.400 H Neut % (Auto) 63.4 Lymph % (Auto) 26.3 [place] % (Auto) 8.0 Eos % (Auto) 0.5 Baso % (Auto) 0.4 Absolute Neuts (auto) 5.1 Absolute Lymphs (auto) 2.13 Nucleated RBC % 0 Sodium 139 Potassium 4.2 Chloride 106 Carbon Dioxide 29.0 Anion Gap 4 L BUN 11 Creatinine 0.64 Estim Creat Clear Calc 51.38 Est GFR (MDRD) Af Amer 116 Est GFR (MDRD) Non-Af 96 BUN/Creatinine Ratio 17.2 Glucose 102 Calcium 8.2 L Iron Troponin I 0.050 H 08/05/20 07:18 WBC RBC Hgb Hct MCV MCH MCHC RDW Std Deviation RDW Coeff of Mallika Plt Count MPV Immature Gran % (Auto) Neut % (Auto) Lymph % (Auto) [place] % (Auto) Eos % (Auto) Baso % (Auto) Absolute Neuts (auto) Absolute Lymphs (auto) Nucleated RBC % Sodium Potassium Chloride Carbon Dioxide Anion Gap BUN Creatinine Estim Creat Clear Calc Est GFR (MDRD) Af Amer Est GFR (MDRD) Non-Af BUN/Creatinine Ratio Glucose Calcium Iron Troponin I 0.054 H Cardiology Labs/Tests 08/04/20 10:05: Iron 25 L 08/04/20 15:56: Troponin I 0.076 H 08/05/20 01:15: Troponin I 0.067 H 08/05/20 04:27: WBC 8.1, RBC 3.22 L, Hgb 9.4 L, Hct 30.7 L, MCV 95.3, MCH 29.2, MCHC 30.6 L, Plt Count 257, MPV 10.9, Immature Gran % (Auto) 1.400 H, Neut % (Auto) 63.4, Lymph % (Auto) 26.3, [place] % (Auto) 8.0, Eos % (Auto) 0.5, Baso % (Auto) 0.4, Absolute Neuts (auto) 5.1, Nucleated RBC % 0 08/05/20 04:27: Sodium 139, Potassium 4.2, Chloride 106, Carbon Dioxide 29.0, Anion Gap 4 L, BUN 11, Creatinine 0.64, Est GFR (MDRD) Af Amer 116, Est GFR (MDRD) Non-Af 96, BUN/Creatinine Ratio 17.2, Glucose 102, Calcium 8.2 L 08/05/20 04:27: Troponin I 0.050 H 08/05/20 07:18: Troponin I 0.054 H Rhythm: Normal sinus EKG: Normal sinus rhythm with T wave inversion in the V1 V2 ECHO: Recent echocardiogram LV function preserved. : Physical Exam Narrative Patient seen and examined at bedside She is alert orientated x3 Not in acute distress and not having any symptoms of chest pain Cardiac examination underlying cardiac rhythm is sinus with a heart rate of around 61 S1-S2 regular Chest exam clear to auscultation Abdomen soft. Central nervous system exam no focal neurological deficit noted. Examination lower extremity no clubbing no cyanosis no lower extremity edema. Const alert, oriented x3 and healthy appearing Orientation / Consciousness: awake HEENT normocephalic Eyes PERRL Neck supple Chest inspection of chest normal and palpation of chest normal Cardio regular rate and regular rhythm Palpation: normal PMI Rate: regular rate and bradycardia GI normal to inspection, nondistended, normoactive bowel sounds Extremity normal to inspection and no clubbing, cyanosis or edema Neuro oriented x3, moves all extremities, no focal motor deficits, no sensory deficits noted and gait normal Psych mental status grossly normal Assessment & Plan Assessment/Plan (1) Chest pain: PLAN: 75-year-old patient, presented to the emergency room at [facility] with a chief complaint of substernal precordial chest pain. Evidently the symptoms happened night before the admission around 3:00 in the morning when she developed the symptoms of chest pain. Described as a pressure in nature and she was nauseated. She has a low hemoglobin of around 9.7 on admission. Patient had a history of hypercoagulable state with factor V Leyden mutation heterozygous, diabetes mellitus type 2, history of DVT, hyperlipidemia and she was on anticoagulation with a subtherapeutic INR. She had mild elevation of cardiac biomarkers which is trended down today high sensitive troponin I 0.54. And in the EKG she has a underlying normal sinus with T wave inversion noted in V1 and V2. On the cardiac telemetry showed underlying normal sinus Plan and recommendation; 1. Based on the clinical presentation and risk factor for CAD patient had prior cardiac catheterization [address] Soria and she been on medical therapy Plan will be to reevaluate by nuclear stress test and if it is abnormal to con engineering consultant cardiac catheterization, by her primary cone picker Dr. Soria. 2. I reviewed all the current medication as well as current lab and telemetry. 3. Recent echocardiogram 2 weeks ago showed LV function preserved with no significant valve abnormality. (2) Subtherapeutic international normalized ratio (INR): (3) NSTEMI (non-ST elevated myocardial infarction):
--- NOTE | 2020-08-05 16:12 | PCM.PN.HOSP ---
Subjective Subjective Patient was seen and examined today, she has no complaints of chest pain and has not had any since she has been admitted. Patient's repeat cardiac enzymes this morning all trended slightly elevated, I talked with cardiology about this and cardiology recommended just doing a stress test tomorrow instead of a cardiac cath. Patient's echocardiogram was also discontinued. Objective Data Objective Data Vital Signs: Vital Signs Temp Pulse Resp BP Pulse Ox 97.9 F 81 16 121/52 H 97 08/05/20 12:00 08/05/20 15:00 08/05/20 12:00 08/05/20 12:00 08/05/20 12:00 Oxygen Delivery Method Room Air Weight: 68 kg Body Mass Index (BMI) 31.3 Intake & Output: Intake and Output for Last 24 Hours 08/03/20 08/04/20 08/05/20 23:59 23:59 23:59 Intake Total 360 / 360 300 / 300 Balance 360 / 360 300 / 300 Lab / Micro Data Result Diagrams: 08/05/20 04:27 08/05/20 04:27 Labs: Laboratory Results - last 24 hr 08/04/20 08/05/20 08/05/20 15:56 01:15 04:27 WBC 8.1 RBC 3.22 L Hgb 9.4 L Hct 30.7 L MCV 95.3 MCH 29.2 MCHC 30.6 L RDW Std Deviation 54.3 H RDW Coeff of Mallika 15.6 H Plt Count 257 MPV 10.9 Immature Gran % (Auto) 1.400 H Neut % (Auto) 63.4 Lymph % (Auto) 26.3 Florence % (Auto) 8.0 Eos % (Auto) 0.5 Baso % (Auto) 0.4 Absolute Neuts (auto) 5.1 Absolute Lymphs (auto) 2.13 Nucleated RBC % 0 Sodium Potassium Chloride Carbon Dioxide Anion Gap BUN Creatinine Estim Creat Clear Calc Est GFR (MDRD) Af Amer Est GFR (MDRD) Non-Af BUN/Creatinine Ratio Glucose Calcium Troponin I 0.076 H 0.067 H 08/05/20 08/05/20 08/05/20 04:27 04:27 07:18 WBC RBC Hgb Hct MCV MCH MCHC RDW Std Deviation RDW Coeff of Mallika Plt Count MPV Immature Gran % (Auto) Neut % (Auto) Lymph % (Auto) Florence % (Auto) Eos % (Auto) Baso % (Auto) Absolute Neuts (auto) Absolute Lymphs (auto) Nucleated RBC % Sodium 139 Potassium 4.2 Chloride 106 Carbon Dioxide 29.0 Anion Gap 4 L BUN 11 Creatinine 0.64 Estim Creat Clear Calc 51.38 Est GFR (MDRD) Af Amer 116 Est GFR (MDRD) Non-Af 96 BUN/Creatinine Ratio 17.2 Glucose 102 Calcium 8.2 L Troponin I 0.050 H 0.054 H Physical Exam Narrative [facility] SystemMedical Records [id number] [place] [address] H&P Exam - [id number]/[id number]/21 [id number]#: [id number]:[id number]:CARL MONTGOMERY [facility] #:[id number]: [id number]: Fransisco Barroso DOPCP:Dr. Theo Watters MD Status:ADM INLocation: [id number] HPI - General General Date of Admission: 08/04/20 Chief Complaint: Chest pain HPI Narrative CARL MONTGOMERY, is a 75 F who presents to the emergency room at [facility] with a chief complaint of substernal precordial chest pain, her first episode was last night was from 7 PM until midnight, she states she went to bed at that time and awoke again at 3 AM early this morning with chest pain. She described the chest pain as pressure-like in nature, it was accompanied by nausea. She did not complain of any radiation to her neck or down her arm. Work-up in the emergency room included labs which showed a low hemoglobin at 9.7, chemistry panel was unremarkable, troponin was normal. EKG showed T wave changes in leads V1 and V2, there is no evidence of a STEMI. Patient will be placed into observation status on PCU, serial isoenzymes will be obtained if these remain normal, patient will have a stress test today. [facility] Medical History (Updated 08/04/20 @ 13:[address] Radha Delarosa MD) Cardiac murmur Depression DM2 (diabetes mellitus, type 2) Factor 5 Leiden mutation, heterozygous Fibromyalgia History of DVT (deep vein thrombosis) HLD (hyperlipidemia) Nodular goiter Home Medications vitamin E (dl, acetate) 400 units PO DAILY 10/13/13 [History Last Taken 08/02/20 08:00] warfarin 4.5 mg PO DAILY 10/13/13 [History Last Taken 08/03/20 17:00] vitamin B complex 1 tab PO DAILY 10/05/18 [History Last Taken 08/02/20 08:00] ascorbic acid (vitamin C) 500 mg capsule 500 mg PO DAILY cap 07/08/19 [History Last Taken 08/02/20 08:00] budesonide-formoterol HFA 160 mcg-4.5 mcg/actuation aerosol inhaler 2 puff INHALATION DAILY PRN g 07/08/19 [History Last Taken Unknown] cholecalciferol (vitamin D3) 10 mcg (400 unit) capsule 10 mcg PO DAILY 07/08/19 [History Last Taken 08/02/20 08:00] mirtazapine 7.5 mg tablet 7.5 mg PO QHS 07/05/20 [History Last Taken 08/03/20 21:00] pantoprazole 40 mg tablet,delayed release 40 mg PO DAILY 07/05/20 [History Last Taken 08/02/20 08:00] pregabalin 50 mg capsule 50 mg PO BID cap 07/05/20 [History Last Taken 08/03/20 21:00] Allergy/AdvReac Type Severity Reaction Status Date / Time castor oil Allergy Unknown Verified 07/05/20 13:04 frovatriptan succinate Allergy Rash Verified 07/05/20 13:04 [From Frova] sumatriptan [From Imitrex] Allergy Rash Verified 07/05/20 13:04 sumatriptan succinate Allergy Rash Verified 07/05/20 13:04 [From Imitrex] vitamin E (d-alpha Allergy Chest Verified 07/05/20 13:04 tocopherol) tightness ezetimibe [From Zetia] AdvReac Severe Severe GI Verified 07/05/20 13:04 upset/stomach pain levofloxacin [From Levaquin] AdvReac Intermediate pain Verified 07/05/20 13:04 IVP DYE Allergy Vomiting Uncoded 07/05/20 13:04 Family History Father CAD (coronary artery disease) Myocardial infarction Mother Colon cancer Surgical History H/O: hysterectomy Hx of appendectomy Social History Smoking Status: Former smoker alcohol intake: never seatbelt use: always do you feel safe at home: Yes additional social history: ROS Constitutional Constitutional: Denies anorexia, change in weight, chills, fatigue, fever(s), malaise, night sweats or weakness Eyes Eyes: Denies blurry vision, change in vision, discharge from eye(s) or eye pain ENT HEENT: Denies abnormal hearing or ear pain Cardiovascular Cardiovascular: Reports chest pain; Denies claudication, dyspnea on exertion, edema, lightheadedness, orthopnea, palpitations or rapid heart rate Respiratory/Chest Respiratory/Chest: Denies cough, dyspnea, excessive phlegm production, hemoptysis, productive cough, shortness of breath at rest or shortness of breath with exertion Gastrointestinal Gastrointestinal: Denies abdominal pain, constipation, diarrhea, hematemesis, hematochezia, melena, nausea or vomiting Genitourinary Genitourinary: Denies dysuria, hematuria, urinary frequency, urinary hesitancy, urinary incontinence or urinary urgency Musculoskeletal Musculoskeletal: Denies back pain, joint pain, joint stiffness, joint swelling, myalgias or neck pain Neurologic Neurologic: Denies abnormal gait, abnormal speech, dizziness, focal weakness, headache(s), loss of vision, numbness, other visual disturbances, paresthesias, syncope or tingling Psychiatric Psychiatric: Denies anxiety, cognitive impairment, depression, irritability, mood swings or suicidal ideation Endocrine Endocrinology: Denies change in body appearance, cold intolerance, excessive sweating, heat intolerance, polydipsia or polyuria Hematologic/Lymphatic Hematologic/Lymphatic: Denies none, anemia, easy bleeding, easy bruising or lymphadenopathy Allergic/Immunologic Allergic/Immunologic: Denies rhinitis, hives, urticaria, eczemia or asthma Vital Signs Vital Signs Vital Signs: 08/04/20 04:48 08/04/20 04:57 08/04/20 05:00 Temperature 98.2 F Temperature Source Oral Pulse Rate 58 L 62 Pulse Strength Respiratory Rate 12 Respiratory Effort Respiratory Depth Respiratory Pattern Blood Pressure 133/60 H 131/60 H Blood Pressure Mean 84 Blood Pressure Source Blood Pressure Position Blood Pressure Location Pulse Ox 97 97 Oxygen Delivery Method Room Air Room Air 08/04/20 06:37 08/04/20 06:41 08/04/20 07:27 Temperature 97.9 F 97.7 F L Temperature Source Temporal Temporal Pulse Rate 55 L 58 L 55 L Pulse Strength Respiratory Rate 16 20 H 16 Respiratory Effort Respiratory Depth Respiratory Pattern Blood Pressure 108/55 L 111/61 119/50 L Blood Pressure Mean 72 77 73 Blood Pressure Source Monitor Blood Pressure Position Semi-Fowlers Blood Pressure Location Right Arm Pulse Ox 96 94 96 Oxygen Delivery Method Room Air Room Air Room Air 08/04/20 07:48 08/04/20 07:55 08/04/20 07:59 Temperature Temperature Source Pulse Rate 53 L Pulse Strength Normal (2+) Respiratory Rate Respiratory Effort Normal Non-Labored Respiratory Depth Normal Respiratory Pattern Normal Blood Pressure Blood Pressure Mean Blood Pressure Source Blood Pressure Position Blood Pressure Location Pulse Ox 97 Oxygen Delivery Method Room Air 08/04/20 08:52 08/04/20 12:50 08/04/20 15:00 Temperature 98.2 F Temperature Source Temporal Pulse Rate 56 L 90 Pulse Strength Respiratory Rate 16 Respiratory Effort Respiratory Depth Respiratory Pattern Blood Pressure 136/55 H Blood Pressure Mean 82 Blood Pressure Source Monitor Blood Pressure Position Semi-Fowlers Blood Pressure Location Right Arm Pulse Ox 96 Oxygen Delivery Method Room Air Room Air Physical Exam Const alert, oriented x3, no apparent distress and healthy appearing General Appearance: cooperative, well kempt and well developed Orientation / Consciousness: awake, oriented to person, oriented to place and oriented to time HEENT normocephalic and moist oral mucous membranes Eyes PERRL, EOMs intact bilaterally and conjunctivae normal Neck nuchal rigidity, supple, no JVD, thyroid normal and no carotid bruits General: trachea midline Resp normal respiratory effort and clear to auscultation bilaterally Auscultation: Negative for rales, rhonchi or wheezes Cardio regular rate, regular rhythm, no murmurs, no rub and no gallops GI normal to inspection, nondistended, normoactive bowel sounds, soft to palpation, non-tender and non-distended Extremity no clubbing, cyanosis or edema Skin no rashes or lesions noted, no wounds and no jaundice General Skin Exam: no breakdown Neuro oriented x3, CN's II-XII intact bilaterally, moves all extremities, no focal motor deficits and no sensory deficits noted Sensorium / Orientation: awake and alert Speech: speech normal Psych thought process normal and affect normal Const alert, oriented x3, no apparent distress and healthy appearing General Appearance: cooperative, well kempt and well developed Orientation / Consciousness: awake, oriented to person, oriented to place and oriented to time HEENT normocephalic and moist oral mucous membranes Eyes PERRL, EOMs intact bilaterally and conjunctivae normal Neck nuchal rigidity, supple, no JVD, thyroid normal and no carotid bruits General: trachea midline Resp normal respiratory effort and clear to auscultation bilaterally Auscultation: Negative for rales, rhonchi or wheezes Cardio regular rate, regular rhythm, no murmurs, no rub and no gallops GI normal to inspection, nondistended, normoactive bowel sounds, soft to palpation, non-tender and non-distended Extremity no clubbing, cyanosis or edema Skin no rashes or lesions noted, no wounds and no jaundice General Skin Exam: no breakdown Neuro oriented x3, CN's II-XII intact bilaterally, moves all extremities, no focal motor deficits and no sensory deficits noted Sensorium / Orientation: awake and alert Speech: speech normal Psych thought process normal and affect normal Assessment & Plan Assessment/Plan (1) Chest pain: QUALIFIERS: Chest pain type: precordial pain Qualified Code(s): R07.2 - Precordial pain PLAN: 1. 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
[2020-08-05] MEDS: 0.9% Saline Lock 10 ML Syringe IV (16:40)
[2020-08-05] MEDS: Atorvastatin Calcium 40 MG Tablet PO (22:20)
[2020-08-05] MEDS: Mirtazapine 15 MG Tablet 7.5 MG PO (22:21)
[2020-08-06] VITALS (9 sets, daily range): BP systolic 111–141; BP diastolic 55–70; PULSE 56–65; RESP 16–18; TEMP 36.5–36.7; O2SAT 95–96
--- NOTE | 2020-08-06 05:55 | EKG12_ITS ---
Test Reason : AM EKG Blood Pressure : / mmHG Vent. Rate : 065 BPM Atrial Rate : 065 BPM P-R Int : 160 ms QRS Dur : 080 ms QT Int : 408 ms P-R-T Axes : 017 005 011 degrees QTc Int : 424 ms Normal sinus rhythm Normal ECG When compared with ECG of 04-AUG-2020 08:29, MANUAL COMPARISON REQUIRED, DATA IS UNCONFIRMED Confirmed by EDGAR DIGGS, ISATU ([id number]), photo editor PETR DIANE ([id number]) on 08/07/2020 9:39:58 AM Referred By: ARBEN Confirmed By:ISATU HERNÁNDEZ MD
[2020-08-06 06:00] LABS: Cholesterol 176 mg/dL (200); High Density Lipoprotein 52 mg/dL; Triglycerides 97 mg/dL; Very Low Density Lipoprotein 19 mg/dL (5-40)
[2020-08-06] MEDS: Aspirin 81 MG TAB.CHEW PO (06:14)
[2020-08-06] MEDS: 0.9% Saline Lock 10 ML Syringe IV (06:15)
--- NOTE | 2020-08-06 08:03 | PCM.PN.CARD ---
Subjective Subjective The patient is awake and alert this morning. She denies any ongoing chest discomfort. She states the chest discomfort she had recently involves her central chest and both upper extremities. She states she was treated with aspirin therapy and nitroglycerin therapy in the EMS. She states after treatment with both these medications she gradually had relief of her symptoms. Objective Data Vital Signs: Vital Signs Temp Pulse Resp BP Pulse Ox 98.0 F 59 L 16 111/62 96 08/06/20 06:11 08/06/20 07:00 08/06/20 06:11 08/06/20 06:11 08/06/20 06:11 Oxygen Delivery Method Room Air Weight: 149 lb 14.629 oz Body Mass Index (BMI) 31.3 Intake & Output: Intake and Output for Last 24 Hours 08/04/20 08/05/20 08/06/20 23:59 23:59 23:59 Intake Total 360 / 360 500 / 500 25 / 25 Balance 360 / 360 500 / 500 25 / 25 Lab / Micro Data Result Diagrams: 08/05/20 04:27 08/05/20 04:27 Labs: Laboratory Results - last 24 hr 08/05/20 08/06/20 07:18 05:30 Troponin I 0.054 H Triglycerides 97 Cholesterol 176 LDL Cholesterol 105 VLDL Cholesterol 19 HDL Cholesterol 52 Cardiology Labs/Tests 08/05/20 07:18: Troponin I 0.054 H 08/06/20 05:30: Triglycerides 97, Cholesterol 176, LDL Cholesterol 105, VLDL Cholesterol 19, HDL Cholesterol 52 Rhythm: Sinus rhythm EKG: Sinus rhythm; right bundle branch block (cardiac rate 65 bpm); subsequent sinus bradycardia with incomplete right bundle branch block with nonspecific ST/T wave changes ECHO: Interpretation Summary Left ventricular systolic function is normal. The estimated ejection fraction is 65 %. Sigmoid septum. There is mild mitral annular calcification. Mild focal mitral valve calcification of the anterior leaflet. The mitral papillary muscle appears thickened and/or calcified. Trivial mitral valve insufficiency. Trivial tricuspid valve insufficiency. Mild focal aortic valve calcification. Trivial pulmonic valve insufficiency. Trivial pericardial effusion. There are no echocardiographic indications of cardiac tamponade. Right ventricular systolic pressure estimated to be 28 mmHg. Diastolic function is indeterminate. Cardiac Cath: Heart Catheterization on 11/24/2006: DISCUSSION The patient is a 61?year?old white female who was hospitalized for chest discomfort concerning for angina pectoris with thus far no other obvious cardia.c/noncardiac etiology of the discomfort who was referred for evaluation with diagnostic cardiac catheterization. Diagnostic cardiac catheterization reveals elevation of the left ventricular and diastolic pressure compatible with decreased diastolic compliance. Left ventriculogram demonstrates preserved LV size, wall motion, systolic function with an. estimated LVEF of 60%. Coronary arteriography demonstrates angiographically normal appearing coronary arteries. Valvular interrogation, suggests mild scalloping of the mitral valve with trace mitral regurgitation which appears to be PVC induced. From the cardiac standpoint it does not appear she has angiographically significant appearing atherosclerotic coronary disease to explain her symptoms. Thus she needs continued noncardiac evaluation/non CAD evaluation of her symptoms. From the cardiac standpoint she needs continued cardiac risk factor modification and care as deemed appropriate. She will continue to follow up with her primary care physician and cardiology as deemed appropriate. FINAL IMPRESSION 1. Elevated left ventricular end diastolic pressure compatible with decreased diastolic compliance. 2. Left ventricle. Preserved LV size, wall motion., and systolic function with an estimated LVEF of 60%. 3. Left main ? Large long vessel ? Angiographically normal. 4. LAD ? Angiographically normal. 5. LCX - Angiographically normal. Physical Exam Const oriented x3 Orientation / Consciousness: awake HEENT normocephalic Eyes PERRL and EOMs intact bilaterally Neck full ROM and supple Chest inspection of chest normal Resp normal respiratory effort Cardio regular rate, regular rhythm, S1 normal heart sound and S2 normal heart sound Heart Sounds: murmur systolic II/ harsh mid left sternal border GI normal to inspection, nondistended, normoactive bowel sounds Extremity no pedal edema Assessment & Plan Assessment/Plan (1) Chest pain: QUALIFIERS: Chest pain type: precordial pain Qualified Code(s): R07.2 - Precordial pain PLAN: The patient presented with chest discomfort. She states after aspirin therapy and nitroglycerin sublingual therapy she had gradual relief of her discomfort. She underwent evaluation with troponin I levels. Her troponin I levels were reported at the lower end of the indeterminate range. Her ECG changes were noted. She has been recommended for further evaluation with a pharmacologic stress nuclear imaging study per Dr. Delarosa who performed her cardiovascular consultation. Depending upon the findings she may or may not need repeat evaluation in the cardiac catheterization laboratory. (2) Sinus bradycardia: PLAN: She has a history of sinus bradycardia. She has been avoiding medications that would lead to bradycardia. (3) HLD (hyperlipidemia): QUALIFIERS: Hyperlipidemia type: unspecified Qualified Code(s): E78.5 - Hyperlipidemia, unspecified PLAN: She has a history of hyperlipidemia. She has been attempting to treat this conservatively. (4) Cardiac murmur: PLAN: She has a cardiac murmur. She recently underwent evaluation with a transthoracic echocardiogram. The results are as noted. Addt'l Comments Overall, the present time, the patient is continuing her noninvasive cardiovascular evaluation. If her studies are unremarkable and there is concern that her symptoms may be related to her gastrointestinal disease process involving her esophagus. If her studies are considered abnormal and she may need reevaluation in the cardiac catheterization laboratory. The patient's case has been previously discussed with both Dr. Delarosa and Dr. Barroso. This note was generated using a voice recognition system and there may be incorrect words, spelling or punctuation that were not noted when reviewing the office note prior to saving. Procedure Criteria Type of Procedure Procedure Type: Elective Elective Risks - COVID COVID Risk Discussion: The surgeon/proceduralist and patient have discussed in detail the risk of exposure to and/or potential harm posed by the COVID-19 virus with having a surgery/procedure at this time versus the risk of delaying the surgery/procedure. It is not possible to know either the risk of delaying the surgery or procedure or chance of getting an infection with perfect accuracy, but a joint decision was made between the patient and the surgeon/proceduralist to proceed at this time with the scheduled surgery/procedure as indicated on the consent form.
--- NOTE | 2020-08-06 12:26 | STRESSREP ---
Stress Test Report Date: 08-06-2020 Procedure: Pharmacologic stress nuclear imaging study Indications: Chest pain Consent: Per the patient Procedure: The patient underwent pharmacologic (Regadenoson 0.4mg ) evaluation with a peak heart rate of 95 beats per minute (65%predicted maximal heart rate) and a peak blood pressure of 134/70 mmHg. The baseline ECG demonstrated sinus rhythm; nonspecific T wave abnormality. The peak pharmacologic ECG demonstrated continued nonspecific T wave abnormality. There was an isolated PVC pretest. The patient noted mild sharp chest discomfort in recovery with spontaneous resolution. The examination was discontinued secondary to completion of protocol. Impression: 1. Pharmacologic (Regadenoson) evaluation 2. Peak pharmacologic ECG with continued nonspecific T wave abnormality. 3. There was an isolated PVC pretest. 4. Nuclear images pending Myocardial perfusion imaging study: Technique: The patient was injected with 11.1 millicuries of technetium 99m Cardiolite and subsequently rest SPECT Cardiolite nuclear imaging was obtained in the horizontal long, vertical long, and short axis views. The patient underwent pharmacologic (Regadenoson) evaluation with a peak heart rate of 95 beats per minute (65% percent predicted maximal heart rate) and a peak blood pressure of 134/7 mmHg. The patient was injected with 31.9 millicuries of technetium 99m Cardiolite and subsequently stress SPECT Cardiolite nuclear imaging was obtained in the horizontal long, vertical long, and short axis views. A gated Cardiolite study at peak stress was obtained. Interpretation: Rest and stress SPECT Cardiolite nuclear imaging status post realignment, normalization, and attenuation correction demonstrate at rest the appearance of a small area of subtle diminished tracer uptake near the distal anterior segments which appears to improve/normalize following stress. There are similar type findings on the resting and stress poor map images. There is end systolic thickening and brightening. The gated Cardiolite study demonstrates myocardial thickening and inward wall motion. The reported LVEF is 93%. Impression: 1. Rest and stress SPECT Cardiolite nuclear imaging demonstrate myocardial perfusion is at rest which appear to improve/normalize following stress appearing compatible with shifting soft tissue attenuation/artifact with no myocardial perfusion changes considered diagnostic for associated stress-induced myocardial ischemia. 2. The gated Cardiolite study reports an LVEF of 93%. This note was generated with [employer] software. It may contain incorrect words, spelling, and punctuation that were not noted in checking the note before signing.
--- NOTE | 2020-08-06 12:54 | PCM.DC ---
Discharge Instructions Follow Up Care Test Results: Test results from this visit will be discussed in further detail at your follow-up appointment, if applicable. Discharge Plan Admission Admit Date/Time: 08/04/20 13:03 Primary Reason for Your Visit: chest pain Attending Provider: Fransisco Barroso Primary Care Provider: Theo Watters [employer] Providers: Radha Delarosa Instructions Patient Instructions: ED Chest Pain, Noncardiac Discharge Orders/Prescriptions Prescriptions: Continued ascorbic acid (vitamin C) 500 mg capsule 500 mg PO DAILY RF: 0 cholecalciferol (vitamin D3) 10 mcg (400 unit) capsule 10 mcg PO DAILY RF: 0 mirtazapine 7.5 mg tablet 7.5 mg PO QHS RF: 0 pantoprazole 40 mg tablet,delayed release (DR/EC) 40 mg PO DAILY RF: 0 pregabalin [Lyrica] 50 mg capsule 50 mg PO BID RF: 0 warfarin 5 MG tablet 4.5 mg PO DAILY RF: 0 vitamin E (dl, acetate) 400 UNITS capsule 400 units PO DAILY RF: 0 vitamin B complex 1 EACH tablet 1 tab PO DAILY RF: 0 budesonide-formoterol 160-4.5 mcg/actuation HFA aerosol inhaler 2 puff inhalation DAILY PRN (Reason: sob) RF: 0 Referrals / Follow Up: Theo Watters Chi, MD [Primary Care Provider] - Within 2 Weeks Disposition Disposition (needs filled in before D/C Order can be placed): Home, self care
--- NOTE | 2020-08-06 13:13 | CT_ITS ---
STUDY: CT CHEST WITHOUT CONTRAST REASON FOR EXAM: Female, 75 years old. Acute chest pain RADIATION DOSAGE (If Supplied By Facility): CTDIvol = ( 13.49 ) mGy, DLP = ( 424.63 ) mGycm TECHNIQUE: Transaxial imaging was performed without the administration of intravenous contrast material. Individualized dose optimization techniques were used for this CT. COMPARISON: None. FINDINGS: Lung windows show chronic interstitial changes in both lung davidson with nonspecific pleural thickening. There is no organized infiltrate or effusion. Soft tissue windows show an enlarged thyroid gland suggesting goiter. No suspicious axillary or mediastinal adenopathy. There are calcified coronary vessels. There is a small pericardial effusion. Normal mediastinum. Normal hilar regions. Normal unenhanced pulmonary arteries. Normal aorta arch and descending thoracic aorta. Extensive degenerative bony changes noted with multiple kyphoplasties noted in the lower thoracic and upper lumbar spine. Limited cuts through the upper abdomen show a large retrocardiac hiatal hernia and likely adrenal adenoma measuring 1.[address]/Chest without Contrast IMPRESSION: Chronic interstitial changes in both lung davidson without a superimposed acute pulmonary process Calcified coronary vessels and small pericardial effusion No suspicious adenopathy Degenerative bony changes Hiatal hernia Electronically Signed: Lele Willis MD at 14:47 EDT , Service support ,
--- NOTE | 2020-08-06 18:26 | DS.PCM_ITS ---
Providers Date of Admission: 08/04/20 Date of Discharge: 08/06/20 Primary Care Physician: Dr. Theo Watters MD Consultations 08/04/20 11:25 Consult: Cardiology Routine Consulting Provider: Radha Delarosa Reason for Consult: chest pain EMERGENT Consult: No MD Notified: Yes Date Notified:: 08/04/20 Time Notified: 11:25 Method of Notification: Verbal Method of Consult:: In-Person Reason For Visit: CHEST PAIN Diagnosis Discharge Diagnosis (1) Chest pain: Status: Acute Code(s): R07.9 - Chest pain, unspecified Qualifiers: Chest pain type: precordial pain Qualified Code(s): R07.2 - Precordial pain (2) Sinus bradycardia: Status: Chronic Code(s): R00.1 - Bradycardia, unspecified (3) HLD (hyperlipidemia): Status: Chronic Code(s): E78.5 - Hyperlipidemia, unspecified Qualifiers: Hyperlipidemia type: unspecified Qualified Code(s): E78.5 - Hyperlipidemia, unspecified (4) Cardiac murmur: Status: Chronic Code(s): R01.1 - Cardiac murmur, unspecified Plan: 1. 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 #4 osteoporosis #5 chronic use of warfarin due to factor V Leiden mutation Medications at Discharge Home Medications vitamin E (dl, acetate) 400 units PO DAILY 10/13/13 warfarin 4.5 mg PO DAILY 10/13/13 vitamin B complex 1 tab PO DAILY 10/05/18 ascorbic acid (vitamin C) 500 mg capsule 500 mg PO DAILY cap 07/08/19 budesonide-formoterol HFA 160 mcg-4.5 mcg/actuation aerosol inhaler 2 puff INHALATION DAILY PRN g 07/08/19 cholecalciferol (vitamin D3) 10 mcg (400 unit) capsule 10 mcg PO DAILY 07/08/19 mirtazapine 7.5 mg tablet 7.5 mg PO QHS 07/05/20 pantoprazole 40 mg tablet,delayed release 40 mg PO DAILY 07/05/20 pregabalin 50 mg capsule 50 mg PO BID cap 07/05/20 Hospital Course Operations None Procedures Nuclear stress test Summary of Care Provided Minutes Spent on Discharge: 30 Hospital Course: This 75-year-old white female was seen in the emergency room at [facility] with complaints of precordial chest discomfort which started before she went to bed the night before and lasted until approximately midnight. She states that she was then awoken at 3 AM with a recurrence of the severe precordial chest pain. EKG obtained in the emergency room showed a right bundle branch block with some T wave inversions in V1 and V2, no evidence of non-STEMI was noted. Patient's cardiac isoenzymes were unremarkable, chest x- ray showed no acute disease. Patient was initially placed into observation status on PCU, thought was given to obtaining a nuclear stress test on 08/04/2020 but the patient's repeat cardiac isoenzymes bumped up slightly and cardiology was reluctant to perform the stress test. Patient was then made a full admission, another set of cardiac isoenzymes were obtained on 08/05/2020 which trended all slightly elevated. It was decided to proceed with a nuclear stress test on 08/06/2020-this was negative for reversible ischemia. Patient underwent a CT of the chest on 08/06/2020 which showed evidence of a large retrocardiac hiatal hernia. It was felt that this was the cause of her chest discomfort. On 08/06/2020, patient was seen and examined: On examination she appeared in good health and spirits, she does not appear to be in any distress. Vital signs as documented. Skin warm and dry and without overt rashes. Neck without JVD, thyroid appears normal, trachea is midline, neck is supple. Lungs clear, normal air movement was noted. Heart exam notable for regular rhythm, normal sounds and absence of murmurs, rubs or gallops. Abdomen unremarkable and without evidence of organomegaly, masses, or abdominal aortic enlargement, bowel sounds are present in all 4 quadrants, no abdominal tenderness was noted. Extremities nonedematous, no cyanosis was noted, no clubbing was noted. Neuro: Cranial nerves II through XII are grossly intact, no focal motor deficits were noted, sensation to light touch and pinprick is intact, motor exam 5/5 throughout. Psych: Patient is alert and oriented x3, she does not appear anxious or depressed, she does not appear agitated. Patient was felt stable for discharge on 08/06/2020, she was instructed to follow-up with her PCP regarding a referral for consultation to a chest surgeon regarding repair of the hiatal hernia, also talked with her crime laboratory analyst Dr. Soria about this by phone. ABG / Lab / Microbiology Data Result Diagrams: 08/05/20 04:27 08/05/20 04:27 Laboratory: Laboratory Results - last 24 hr 08/06/20 05:30 Triglycerides 97 Cholesterol 176 LDL Cholesterol 105 VLDL Cholesterol 19 HDL Cholesterol 52 Radiography Diagnostic Testing: Radiology Impression Chest CT 08/06/20 13:13 IMPRESSION: Chronic interstitial changes in both lung davidson without a superimposed acute pulmonary process Calcified coronary vessels and small pericardial effusion No suspicious adenopathy Degenerative bony changes Hiatal hernia Electronically Signed: Lele Willis MD at 14:47 EDT , Service support , Meaningful Use Info Meaningful Use Diagnoses (Choose all that apply): None applicable Discharge Plan Admission Admit Date/Time: 08/04/20 13:03 Primary Reason for Your Visit: chest pain Attending Provider: Fransisco Barroso Primary Care Provider: Theo Watters Chi Consulting Providers: Radha Delarosa Instructions Patient Instructions: ED Chest Pain, Noncardiac Discharge Orders/Prescriptions Prescriptions: Continued ascorbic acid (vitamin C) 500 mg capsule 500 mg PO DAILY RF: 0 cholecalciferol (vitamin D3) 10 mcg (400 unit) capsule 10 mcg PO DAILY RF: 0 mirtazapine 7.5 mg tablet 7.5 mg PO QHS RF: 0 pantoprazole 40 mg tablet,delayed release (DR/EC) 40 mg PO DAILY RF: 0 pregabalin [Lyrica] 50 mg capsule 50 mg PO BID RF: 0 warfarin 5 MG tablet 4.5 mg PO DAILY RF: 0 vitamin E (dl, acetate) 400 UNITS capsule 400 units PO DAILY RF: 0 vitamin B complex 1 EACH tablet 1 tab PO DAILY RF: 0 budesonide-formoterol 160-4.5 mcg/actuation HFA aerosol inhaler 2 puff inhalation DAILY PRN (Reason: sob) RF: 0 Referrals / Follow Up: Theo Watters Chi, MD [Primary Care Provider] - Within 2 Weeks Disposition Disposition (needs filled in before D/C Order can be placed): Home, self care Visit Charges Inpatient E&M: [id number] Disch Hosp
--- NOTE | 2020-08-07 15:22 | CASEMGMT ---
SCOOTER CM Discharge Follow-up Phone Call: NOHEMI: Hayley Strata: 3 Call Date: 08/07/20 Discharge Date: 08/06/20 Time of Call: 1520 Duration: 1 min Admitting Diagnosis: Chest Pain RN PARK attempted to complete follow-up phone call after recent hospitalization. No answer, voice message left with return contact information.
== END 2020-08-06 16:27 | disposition home or self-care (01) | DRG 392 ==
LOC: ED 05:19 → PCU 07:04
PROVIDERS: Internal Medicine Interventional Cardiology; Admitting Provider Hospitalist; Emergency Provider Emergency Medicine; PCP Family Medicine Geriatric Medicine; Visit Provider Internal Medicine
DX: K44.9 Diaphragmatic hernia without obstruction or gangrene (principal); D68.51 Activated protein C resistance; R07.9 Chest pain, unspecified; M81.0 Age-related osteoporosis without current pathological fracture; Z79.01 Long term (current) use of anticoagulants; Z86.718 Personal history of other venous thrombosis and embolism; Z87.891 Personal history of nicotine dependence; G62.9 Polyneuropathy, unspecified; M47.816 Spondylosis without myelopathy or radiculopathy, lumbar region; R00.1 Bradycardia, unspecified; E78.5 Hyperlipidemia, unspecified; R01.1 Cardiac murmur, unspecified
CPT/HCPCS: 36415; 71045; 71250; 78452; 80048; 80061; 83540; 84484; 85025; 85610; 85730; 93005; 93017; 94640; 99285; A9500; A4216; J2405; J2785

== ENCOUNTER → 2020-08-09 14:37 | Outpatient (CLI) | payer MEDICARE, BC, SELFPAY ==
[2020-08-04 07:32] VITALS: BMI 31.3
== END ==
PROVIDERS: PCP Family Medicine Geriatric Medicine; Visit Provider Family Medicine Geriatric Medicine
DX: N39.0 Urinary tract infection, site not specified (principal)
CPT/HCPCS: 87086; 87088

== ENCOUNTER 2020-09-25 06:22 | Emergency (ER) | payer MEDICARE, BC, SELFPAY ==
[2020-08-04 07:32] VITALS: BMI 31.3
[2020-09-25 06:23] VITALS: BP 150/67; PULSE 71; RESP 16; TEMP 37; O2SAT 94; BMI 33.1
--- NOTE | 2020-09-25 06:39 | RAD_ITS ---
STUDY: X-RAY - UNILATERAL RIBS ( LEFT ) WITH CHEST REASON FOR EXAM: Female, 75 years old. fall TECHNIQUE - RIBS: 2 view(s) of the ribs. TECHNIQUE - CHEST: Single AP portable view of the chest. COMPARISON: None. FINDINGS - RIBS: Normal visualized ribs without a demonstrated fracture. FINDINGS - CHEST: The lungs are clear and expanded. There is no demonstrated pleural abnormality. There is moderate cardiac enlargement. Normal mediastinum and agueda. Normal visualized pulmonary arteries. Normal visualized aortic arch and descending thoracic aorta. Normal visualized ribs, clavicles, and shoulders. There is a high diameter is approximately 10 cm. RAD/Ribs Uni Min 3V w/PA Chest IMPRESSION: RIBS: Normal x-ray examination of the ribs. CHEST: Moderate cardiomegaly. Large hiatal hernia. Electronically Signed: Sudheer Garza MD at 7:34 EDT Tel , Service support ,
--- NOTE | 2020-09-25 06:39 | RAD_ITS ---
STUDY: X-RAY - THORACIC SPINE REASON FOR EXAM: Female, 75 years old. Fall TECHNIQUE: 2 view(s) of the thoracic spine were obtained. COMPARISON: 08/06/2020 FINDINGS: There is a new compression fracture of T7. Old compression fractures out at T8, T9, T10, T11, T12, L1 with bone cement in the vertebral bodies from prior vertebral augmentation procedures. There is an increase in the normal thoracic kyphosis. There is mild dextroscoliosis of the thoracic spine. There is demineralization of the thoracic spine with endplate spondylosis. Normal disc space heights. The soft tissue structures are unremarkable. RAD/Thoracic Spine 2 Views IMPRESSION: There is a new compression fracture of T7. Old compression fractures out at T8, T9, T10, T11, T12, L1 with bone cement in the vertebral bodies from prior vertebral augmentation procedures. Electronically Signed: Sudheer Garza MD at 7:30 EDT Tel , Service support ,
[2020-09-25] MEDS: Lidocaine 5% Patch 1 PATCH TOPICAL (06:48)
[2020-09-25] MEDS: HYDROcodone Bitartrate/Apap 5/325 Tablet PO (06:48)
[2020-09-25 06:49] LABS: International Normalized Ratio 1.6
--- NOTE | 2020-09-25 07:54 | ED.VIS.FALL ---
HPI HPI - Fall History of Present Illness Chief Complaint: Fall Narrative Narrative: Patient presenting for evaluation secondary to a mechanical fall. Patient states that she was trying to go to the bathroom she did not turn the lights on and she accidentally sat between the toilet and the bathtub instead of on the toilet. Patient states that she struck her left side of her ribs against the bathtub which did cause some pain. She denies hitting her head or loss of consciousness. No visual changes numbness weakness nausea or vomiting or confusion. She denies any hemoptysis. She is on anticoagulation secondary to a history of factor V Leiden. Patient states that her INR is have been running therapeutic. Patient deals with chronic back pain, and she has been dealing with somewhat of an exacerbation of that over the course of the last couple of days. It is in her thoracic back. She denies any radiation to the arms or legs. Any bowel or bladder incontinence. She denies any fevers chills night sweats or unintended weight loss. [facility] Medical History Cardiac murmur Depression DM2 (diabetes mellitus, type 2) Factor 5 Leiden mutation, heterozygous Fibromyalgia History of DVT (deep vein thrombosis) HLD (hyperlipidemia) Nodular goiter Home Medications vitamin E (dl, acetate) 400 units PO DAILY 10/13/13 [History Last Taken 08/02/20 08:00] warfarin 4.5 mg PO DAILY 10/13/13 [History Last Taken 08/03/20 17:00] vitamin B complex 1 tab PO DAILY 10/05/18 [History Last Taken 08/02/20 08:00] ascorbic acid (vitamin C) 500 mg capsule 500 mg PO DAILY cap 07/08/19 [History Last Taken 08/02/20 08:00] budesonide-formoterol HFA 160 mcg-4.5 mcg/actuation aerosol inhaler 2 puff INHALATION DAILY PRN g 07/08/19 [History Last Taken Unknown] cholecalciferol (vitamin D3) 10 mcg (400 unit) capsule 10 mcg PO DAILY 07/08/19 [History Last Taken 08/02/20 08:00] mirtazapine 7.5 mg tablet 7.5 mg PO QHS 07/05/20 [History Last Taken 08/03/20 21:00] pantoprazole 40 mg tablet,delayed release 40 mg PO DAILY 07/05/20 [History Last Taken 08/02/20 08:00] pregabalin 50 mg capsule 50 mg PO BID cap 07/05/20 [History Last Taken 08/03/20 21:00] hydrocodone-acetaminophen 1 tab PO Q8H PRN 3 Days #9 tab 09/25/20 [Rx Last Taken Unknown] Allergy/AdvReac Type Severity Reaction Status Date / Time castor oil Allergy Unknown Verified 07/05/20 13:04 frovatriptan succinate Allergy Rash Verified 07/05/20 13:04 [From Frova] sumatriptan [From Imitrex] Allergy Rash Verified 07/05/20 13:04 sumatriptan succinate Allergy Rash Verified 07/05/20 13:04 [From Imitrex] vitamin E (d-alpha Allergy Chest Verified 07/05/20 13:04 tocopherol) tightness ezetimibe [From Zetia] AdvReac Severe Severe GI Verified 07/05/20 13:04 upset/stomach pain levofloxacin [From Levaquin] AdvReac Intermediate pain Verified 07/05/20 13:04 IVP DYE Allergy Vomiting Uncoded 07/05/20 13:04 Family History Father CAD (coronary artery disease) Myocardial infarction Mother Colon cancer Surgical History H/O: hysterectomy Hx of appendectomy Social History Smoking Status: Former smoker alcohol intake: never seatbelt use: always do you feel safe at home: Yes additional social history: ROS ROS ED Constitutional Constitutional ED: Denies chills or fever(s) ENT ENT ED: Denies rhinorrhea Cardiovascular Cardiovascular: Reports chest pain Respiratory/Chest Respiratory/Chest: Denies cough or dyspnea Gastrointestinal Gastrointestinal: Denies abdominal pain, diarrhea, nausea or vomiting Genitourinary Genitourinary ED: Denies dysuria or hematuria Musculoskeletal Musculoskeletal: Reports back pain and other Integumentary Denies rash Neurologic Neurologic: Denies paresthesias or weakness Psychiatric Psychiatric: Denies depression Endocrine Endocrinology: Denies fatigue Allergic/Immunologic Allergic/Immunologic ED: Denies urticaria EXAM Physical Exam Const Vital Signs: 09/25/20 06:23 09/25/20 06:26 Temperature 98.6 F Temperature Source Oral Pulse Rate 71 Respiratory Rate 16 Respiratory Effort Normal Blood Pressure 150/67 H Blood Pressure Mean 94 Pulse Ox 94 Oxygen Delivery Method Room Air Room Air Positive well nourished and well developed General Appearance ED: well developed and NAD HEENT Reports moist mucous membranes Negative for trauma or tenderness Eyes EOMs intact bilaterally Neck no lymphadenopathy, supple and no JVD Chest Wall Chest Narrative: Pain over the left lateral portion of the patient's chest Resp normal respiratory effort and clear to auscultation bilaterally Cardio regular rate, regular rhythm, no murmurs and peripheral pulses 2+ throughout GI normal to inspection, nondistended, normoactive bowel sounds, non-tender and no masses Palpation: soft Back/Spine normal to inspection Back/Spine Narrative: Tenderness is noted with no step-offs Extremity normal to inspection General Extremety ED: Negative for tenderness Neuro oriented x3 and no sensory deficits noted Sensorium / Orientation: alert Motor Exam: strength 5/5 throughout Psych mental status grossly normal Skin no rashes or lesions noted MDM MDM MDM Narrative Medical decision making narrative: Patient presented secondary to a fall. Radiographs of the thoracic spine and ribs were obtained. By my personal interpretation as well as radiology the rib x-rays are negative, the patient's thoracic x-ray shows multiple compression fractures radiology read the T7 compression fracture is being new. Patient was able to briskly ambulate in the emergency department. She was treated with lidocaine and [place] in the emergency department. Patient at this point I do not believe requires admission. She will be given a referral to spine surgery. Patient will be discharged with a course of analgesia. She was discharged in stable condition. Lab Data Labs: Laboratory Results - last 24 hr 09/25/20 06:04 PT 18.0 H INR 1.6 Radiography Diagnostic Testing: Radiology Impression Ribs w/Chest X-Ray 09/25/20 06:39 IMPRESSION: RIBS: Normal x-ray examination of the ribs. CHEST: Moderate cardiomegaly. Large hiatal hernia. Electronically Signed: Sudheer Garza MD at 7:34 EDT Tel , Service support , Thoracic Spine X-Ray 09/25/20 06:39 IMPRESSION: There is a new compression fracture of T7. Old compression fractures out at T8, T9, T10, T11, T12, L1 with bone cement in the vertebral bodies from prior vertebral augmentation procedures. Electronically Signed: Sudheer Garza MD at 7:30 EDT Tel , Service support , Discharge Plan Triage Chief Complaint: Fall ED Provider: Ronaldo Zabala Dx/Rx/DC Orders Clinical Impression: Compression fracture Instructions: ED Fracture, Vertebral Compression Prescriptions: New hydrocodone-acetaminophen 5-325 mg tablet 1 tab PO Q8H PRN (Reason: pain) 3 Days Qty: 9 RF: 0 No Action ascorbic acid (vitamin C) 500 mg capsule 500 mg PO DAILY RF: 0 cholecalciferol (vitamin D3) 10 mcg (400 unit) capsule 10 mcg PO DAILY RF: 0 mirtazapine 7.5 mg tablet 7.5 mg PO QHS RF: 0 pantoprazole 40 mg tablet,delayed release (DR/EC) 40 mg PO DAILY RF: 0 pregabalin [Lyrica] 50 mg capsule 50 mg PO BID RF: 0 warfarin 5 MG tablet 4.5 mg PO DAILY RF: 0 vitamin E (dl, acetate) 400 UNITS capsule 400 units PO DAILY RF: 0 vitamin B complex 1 EACH tablet 1 tab PO DAILY RF: 0 budesonide-formoterol 160-4.5 mcg/actuation HFA aerosol inhaler 2 puff inhalation DAILY PRN (Reason: sob) RF: 0 Primary Care Provider: Theo Watters Chi Referrals: Eddie Johnson DO [STAFF PHYSICIAN] - As Needed Theo Watters Chi, MD [Primary Care Provider] - Disposition Disposition: Home, Self Care
[2020-09-25 08:11] VITALS: BP 117/80; PULSE 74; RESP 16; O2SAT 94
== END 2020-09-25 08:13 | disposition home or self-care (01) ==
PROVIDERS: Emergency Provider Emergency Medicine; PCP Family Medicine Geriatric Medicine
DX: S22.060A Wedge compression fracture of T7-T8 vertebra, initial encounter for closed fracture (principal); F32.9 Major depressive disorder, single episode, unspecified; E11.9 Type 2 diabetes mellitus without complications; E78.5 Hyperlipidemia, unspecified; D68.51 Activated protein C resistance; Z86.718 Personal history of other venous thrombosis and embolism; Z79.01 Long term (current) use of anticoagulants; Z79.899 Other long term (current) drug therapy; Z87.891 Personal history of nicotine dependence; W18.30XA Fall on same level, unspecified, initial encounter; Y93.89 Activity, other specified; Y92.002 Bathroom of unspecified non-institutional (private) residence as the place of occurrence of the external cause; Y99.8 Other external cause status
CPT/HCPCS: 71101; 72070; 85610; 99285

== ENCOUNTER 2020-10-05 08:50 | Day surgery (SDC) | payer MEDICARE, BC, SELFPAY ==
[2020-10-05] VITALS (8 sets, daily range): BP systolic 119–158; BP diastolic 46–83; PULSE 64–92; RESP 16; TEMP 20.1–36.5; O2SAT 90–97; BMI 32.2
[2020-10-05 09:50] LABS: International Normalized Ratio 1.2; Prothrombin Time (Protime)PT. 14.4 SECONDS (11.7-14.9)
[2020-10-05 11:10] LABS: INR Fingerstick 1.4; Prothrombin Time Fingerstick 16.1 SEC (11.9-14.4)
--- NOTE | 2020-10-05 12:29 | RAD_ITS ---
STUDY: X-RAY - THORACIC SPINE REASON FOR EXAM: Female, 75 years old. KYPHOPLASTY T7 TECHNIQUE: 4 view(s) of the thoracic spine were obtained. COMPARISON: None. FINDINGS: 4 views of the thoracic spine were obtained on a C-arm for kyphoplasty performed by the referring physician. The examination was not performed for diagnostic purposes. The fluoroscopy time was 99.2 seconds. 4 fluoroscopic images were obtained. RAD/Thoracic Spine 2 Views IMPRESSION: Intraprocedural exam as described above. Electronically Signed: Jaime Ibarra MD at 10:06 EDT Tel , Service support ,
[2020-10-05] MEDS: Lidocaine 0.5% (50 ml) 50 ML Vial (12:40)
[2020-10-05] MEDS: Bupivacaine Mpf 0.5% 30 ML VIAL (12:51)
== END 2020-10-05 15:15 | disposition home or self-care (01) ==
LOC: SDC 08:52 → AC 08:53
PROVIDERS: PCP Family Medicine Geriatric Medicine; Referring Provider Anesthesiology Pain Medicine; Visit Provider Anesthesiology Pain Medicine
PROC: (CPT 22513; principal; 2020-10-05 10:15)
DX: M80.08XA Age-related osteoporosis with current pathological fracture, vertebra(e), initial encounter for fracture (principal); M51.34 Other intervertebral disc degeneration, thoracic region; M48.04 Spinal stenosis, thoracic region; K21.9 Gastro-esophageal reflux disease without esophagitis; E78.5 Hyperlipidemia, unspecified; D68.51 Activated protein C resistance; F41.9 Anxiety disorder, unspecified; M79.7 Fibromyalgia; Z87.891 Personal history of nicotine dependence; Z79.01 Long term (current) use of anticoagulants; Z79.51 Long term (current) use of inhaled steroids; Z79.899 Other long term (current) drug therapy
CPT/HCPCS: 01936; 22513; 36416; 72070; 76000; 85610; J2405

== ENCOUNTER → 2020-11-22 15:55 | Outpatient (CLI) | payer MEDICARE, BC, SELFPAY ==
--- NOTE | 2020-11-22 16:15 | RAD_ITS ---
EXAM: XR CHEST, 2 VIEWS : 1945 CLINICAL INDICATION: SOB TECHNIQUE: Frontal and lateral views of the chest. This report was created using [employer] report generation technology. COMPARISON: 09/25/2020 FINDINGS: LUNGS AND PLEURAL SPACES: There is scarring at the lung bases. No pneumothorax. No effusion. HEART: Unremarkable. Cardiac silhouette not enlarged. MEDIASTINUM: There is a hiatal hernia present. BONES/JOINTS: There is orthopedic cement in multiple vertebral body from previous kyphoplasty's. SOFT TISSUES: Unremarkable. RAD/Chest PA and Lateral IMPRESSION: Interstitial scarring with no focal consolidation. at 1640 Reported and signed by: Michael Uriarte MD Electronically Signed: Michael Uriarte MD at 16:39 EDT Tel , Service support ,
== END ==
PROVIDERS: PCP Family Medicine Geriatric Medicine; Referring Provider Family Medicine Geriatric Medicine; Visit Provider Family Medicine Geriatric Medicine
DX: R06.89 Other abnormalities of breathing (principal)
CPT/HCPCS: 71046

== ENCOUNTER → 2020-11-23 12:55 | Outpatient (CLI) | payer MEDICARE, BC, SELFPAY | PROVIDERS: PCP Family Medicine Geriatric Medicine; Referring Provider Family Medicine Geriatric Medicine; Visit Provider Family Medicine Geriatric Medicine | DX: R68.83 Chills (without fever) (principal) | CPT/HCPCS: 87635; 87804; 87807; C9803; U0005; U0003 ==

== ENCOUNTER 2020-11-30 14:16 | Emergency (ER) | payer MEDICARE, BC, SELFPAY ==
[2020-11-30 14:17] VITALS: BP 162/62; PULSE 71; RESP 18; TEMP 36.3; O2SAT 99; BMI 31.9
--- NOTE | 2020-11-30 15:11 | CT_ITS ---
STUDY: CT CHEST WITHOUT CONTRAST REASON FOR EXAM: Female, 75 years old. Right-sided chest and rib pain following recent injections. RADIATION DOSAGE (If Supplied By Facility): CTDIvol = ( 14.92 ) mGy, DLP = ( 398.92 ) mGycm TECHNIQUE: Transaxial imaging was performed without the administration of intravenous contrast material. Multiplanar coronal and sagittal images were reformatted. Individualized dose optimization techniques were used for this CT. COMPARISON: Comparison is made with prior study dated 08/06/2020. FINDINGS: Heterogeneous enlargement of the right lobe of the thyroid with substernal extension. Stable scarring in the right upper lobe as well as in both lower lobes with mild bronchiectasis. There now is evidence of bibasilar atelectasis. No evidence of pneumothorax. Small pericardial effusion. There are calcifications of the coronary arteries. Normal mediastinum. Normal hilar regions. Normal unenhanced pulmonary arteries. There is atherosclerotic calcification of the aortic arch with tortuosity and elongation of the aortic arch and descending thoracic aorta. There are multi-level degenerative changes of the thoracic spine. Multiple kyphoplasty''s. Large hiatal hernia. CT/Chest without Contrast IMPRESSION: Stable scarring in both lungs as described with findings suggestive of superimposed bibasilar atelectasis. Large hiatal hernia. 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 Electronically Signed: Leonides Manriquez MD at 15:43 EDT , Service support ,
--- NOTE | 2020-11-30 15:13 | EDS_ITS ---
HPI History of Present Illness Chief Complaint: Chest Other Informant: patient and family Narrative Narrative: Worsening right rib pain for the past 2 days after taking off her sweater. Yesterday while turning more significant. No dyspnea. History of osteoporosis with nontraumatic upper rib fractures in the past. This past September had T7-T8 thoracic compression fractures had kyphoplasty performed. This past Thursday had epidurals to the same area by Dr. Donohue, due to increasing pain in the area. Took hydrocodone 80 a.m. with no relief. Had leftover baclofen took half a tab 10:40 AM. Denies any other symptoms. Prior similar symptoms: Yes PFSH PFSH Medical History Anxiety Arthritis Bladder disease Cardiac murmur Depression DM2 (diabetes mellitus, type 2) Easy bruising Excessive bleeding Factor 5 Leiden mutation, heterozygous Fibromyalgia Former smoker Gastric reflux High cholesterol History of DVT (deep vein thrombosis) History of hiatal hernia History of irregular heartbeat History of stress test HLD (hyperlipidemia) Nodular goiter Post-menopausal Pulmonary embolism Wears dentures Wears glasses Wears hearing aid Home Medications vitamin E (dl, acetate) 400 units PO DAILY 10/13/13 [History Last Taken 08/02/20 08:00] warfarin 4.5 mg PO DAILY 10/13/13 [History Last Taken 08/03/20 17:00] vitamin B complex 1 tab PO DAILY 10/05/18 [History Last Taken 08/02/20 08:00] cholecalciferol (vitamin D3) 10 mcg (400 unit) capsule 10 mcg PO DAILY 07/08/19 [History Last Taken 08/02/20 08:00] mirtazapine 7.5 mg tablet 7.5 mg PO QHS 07/05/20 [History Last Taken 08/03/20 21:00] pantoprazole 40 mg tablet,delayed release 40 mg PO DAILY 07/05/20 [History Last Taken 08/02/20 08:00] pregabalin 50 mg capsule 50 mg PO BID cap 07/05/20 [History Last Taken 08/03/20 21:00] hydrocodone-acetaminophen 1 tab PO Q8H PRN 3 Days #9 tab 09/25/20 [Rx Last Taken 10/05/20] oxycodone-acetaminophen [Percocet] 1 tab PO Q6H PRN 3 Days #12 tab 11/30/20 [Rx Last Taken Unknown] Allergy/AdvReac Type Severity Reaction Status Date / Time castor oil Allergy Unknown Verified 10/05/20 09:07 frovatriptan succinate Allergy Rash Verified 10/05/20 09:07 [From Frova] sumatriptan [From Imitrex] Allergy Rash Verified 10/05/20 09:07 sumatriptan succinate Allergy Rash Verified 10/05/20 09:07 [From Imitrex] vitamin E (d-alpha Allergy Chest Verified 10/05/20 09:07 tocopherol) tightness ezetimibe [From Zetia] AdvReac Severe Severe GI Verified 10/05/20 09:07 upset/stomach pain levofloxacin [From Levaquin] AdvReac Intermediate pain Verified 10/05/20 09:07 IVP DYE Allergy Vomiting Uncoded 07/05/20 13:04 Family History Father CAD (coronary artery disease) Myocardial infarction Mother Colon cancer Surgical History H/O: hysterectomy Hx of appendectomy Hx of kyphoplasty Social History Smoking Status: Former smoker alcohol intake: never seatbelt use: always do you feel safe at home: Yes additional social history: ROS ROS ED Constitutional Constitutional ED: Denies chills, fever(s) or sweats Eyes Eyes: Denies change in vision ENT ENT ED: Denies dysphagia or sore throat Cardiovascular Cardiovascular: Reports other Details: Right rib pain ; Denies chest pain, leg edema, palpitations or racing heartbeat Respiratory/Chest Respiratory/Chest: Denies cough, dyspnea or dyspnea on exertion Gastrointestinal Gastrointestinal: Denies abdominal pain, diarrhea, nausea or vomiting Genitourinary Genitourinary ED: Denies dysuria, hematuria or urinary frequency Musculoskeletal Musculoskeletal: Denies back pain, extremity pain or neck pain Integumentary Denies rash or wounds Neurologic Neurologic: Denies headache(s), paresthesias or weakness EXAM Physical Exam Const Vital Signs: 11/30/20 14:17 11/30/20 16:04 11/30/20 16:59 Temperature 97.3 F L Temperature Source Temporal Pulse Rate 71 74 Respiratory Rate 18 15 Respiratory Effort Normal Non-Labored Respiratory Pattern Normal Blood Pressure 162/62 H Blood Pressure Mean 95 Pulse Ox 99 97 Oxygen Delivery Method Room Air Positive well nourished and well developed General Appearance ED: well developed and NAD HEENT Reports moist mucous membranes normocephalic and atraumatic Eyes PERRL, EOMs intact bilaterally and conjunctivae normal General Eye ED: Yes normal appearance of both eyes Neck no lymphadenopathy and supple General: Negative for tenderness Chest Wall Chest Narrative: Tender palpation right lower anterior chest wall no crepitus, no ecchymosis, no rash. Chest: Negative for tenderness Resp normal respiratory effort and normal air movement Resp Narrative: Symmetric breath sounds bilaterally Effort and Inspection: symmetric chest movement; Negative for respiratory distress Cardio regular rate, regular rhythm and no murmurs Peripheral Pulses: pulses 2+ throughout GI normal to inspection, nondistended, normoactive bowel sounds and non-tender Palpation: Negative for guarding or rebound tenderness present Back/Spine no CVA tenderness and no thoracic nor lumbar tenderness Extremity normal to inspection General Extremety ED: Negative for edema or tenderness General Extremity: Negative for edema Neuro oriented x3 and no sensory deficits noted Sensorium / Orientation: awake and alert Skin no rashes or lesions noted and no wounds MDM MDM MDM Narrative Medical decision making narrative: Patient tender palpation right lower ribs. She is given fentanyl IM for pain control. Noncontrast CT scan obtained per radiology there is no acute findings however no mentioning of ribs. I reviewed the imagings myself, concerns for rib 8 9 fracture rib 8 has calcifications concerning for less acute fracture. She had a CT noncontrast chest scan in July of this year, reviewed this there was no fractures of the ribs at that time. Discussed findings with the patient and daughter. She will be given prescription for oxycodone sent to her pharmacy. Incentive spirometer. They will call Dr. Donohue to okay prescription prior to filling and also for follow- up outpatient for further treatment as needed. All questions were answered. Radiography Diagnostic Testing: Radiology Impression Chest CT 11/30/20 15:11 IMPRESSION: Stable scarring in both lungs as described with findings suggestive of superimposed bibasilar atelectasis. Large hiatal hernia. 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 Electronically Signed: Leonides Manriquez MD at 15:43 EDT , Service support , Discharge Plan Triage Chief Complaint: Chest Other ED Provider: Carlo Holt Dx/Rx/DC Orders Clinical Impression: Right rib fracture, Osteoporosis Instructions: ED Rib Fracture Prescriptions: New oxycodone-acetaminophen [Percocet] 5-325 mg tablet 1 tab PO Q6H PRN (Reason: pain) 3 Days Qty: 12 RF: 0 No Action cholecalciferol (vitamin D3) 10 mcg (400 unit) capsule 10 mcg PO DAILY RF: 0 mirtazapine 7.5 mg tablet 7.5 mg PO QHS RF: 0 pantoprazole 40 mg tablet,delayed release (DR/EC) 40 mg PO DAILY RF: 0 pregabalin [Lyrica] 50 mg capsule 50 mg PO BID RF: 0 warfarin 5 MG tablet 4.5 mg PO DAILY RF: 0 vitamin E (dl, acetate) 400 UNITS capsule 400 units PO DAILY RF: 0 vitamin B complex 1 EACH tablet 1 tab PO DAILY RF: 0 hydrocodone-acetaminophen 5-325 mg tablet 1 tab PO Q8H PRN (Reason: pain) 3 Days Qty: 9 RF: 0 Primary Care Provider: Theo Watters Chi Referrals: Roberta Donohue MD [STAFF PHYSICIAN] - 1 Day Theo Watters Chi, MD [Primary Care Provider] - Activity Restrictions/Additional Instructions: 2 rib fractures right lower ribs. Use incentive spirometer every 2 hours while awake. Use Percocet as needed. Take your hydrocodone to pharmacy to trade out Follow up with Dr. Rodriguez. Disposition Disposition: Home, Self Care Discharge Date/Time: 11/30/20 17:00
[2020-11-30] MEDS: fentaNYL 100 MCG/2 ML Ampul 50 MCG IV (15:42)
[2020-11-30] MEDS: oxyCODONE 5 MG Tablet PO (16:43)
[2020-11-30 16:59] VITALS: PULSE 74; RESP 15; O2SAT 97
== END 2020-11-30 17:00 | disposition home or self-care (01) ==
PROVIDERS: Emergency Provider Emergency Medicine; PCP Family Medicine Geriatric Medicine
DX: S22.31XA Fracture of one rib, right side, initial encounter for closed fracture (principal); M81.0 Age-related osteoporosis without current pathological fracture; F41.9 Anxiety disorder, unspecified; M19.90 Unspecified osteoarthritis, unspecified site; F32.9 Major depressive disorder, single episode, unspecified; E11.9 Type 2 diabetes mellitus without complications; K21.9 Gastro-esophageal reflux disease without esophagitis; E78.5 Hyperlipidemia, unspecified; D68.51 Activated protein C resistance; Z87.891 Personal history of nicotine dependence; Z86.718 Personal history of other venous thrombosis and embolism; Z79.01 Long term (current) use of anticoagulants; Z79.899 Other long term (current) drug therapy; X50.1XXA Overexertion from prolonged static or awkward postures, initial encounter; Y93.89 Activity, other specified; Y92.89 Other specified places as the place of occurrence of the external cause; Y99.8 Other external cause status
CPT/HCPCS: 71250; 96374; 99283

== ENCOUNTER → 2020-12-19 15:25 | Outpatient (CLI) | payer MEDICARE, BC, SELFPAY ==
[2020-12-19 16:56] LABS: Anion Gap 6 (5-15); BUN 8 mg/dL (7-18); BUN/Creat Ratio 12.6 RATIO (10-20); Calcium,Total 8.7 mg/dL (8.5-10.1); Chloride 101 mmol/L (98-107); Creatinine, Serum 0.64 mg/dL (0.55-1.02); EST Glomerular Filtration Rate 96 mL/min (>60); Est Glom Filt Rate - Afr Amer 117 mL/min (>60); Glucose 121 mg/dL (74-106); Potassium 3.9 mmol/L (3.5-5.1); Sodium Level 137 mmol/L (136-145)
[2020-12-19 17:01] LABS: Absolute Neutrophil Count 5.6 X10^3/uL (2.0-7.7); Basophil# 0.05 X10^3/uL; Basophil% 0.5 % (0-1); Eosinophil# 0.42 X10^3/uL; Eosinophils% 4.5 % (0-5); Hematocrit 30.3 % (37-47); Hemoglobin 9.4 g/dL (12.0-15.0); Lymphocyte % 24.8 % (19-41); Mean Corpuscular Hgb 26.3 pg (27.0-32.0); Mean Corpuscular Volume 84.9 fL (81-99); Mean Platelet Vol. 10.7 fl (6.2-12.0); Monocyte# 0.81 X10^3/uL; Monocyte% 8.7 % (0-10); NRBC Flagged by Analyzer 0 % (0-5); Neutrophil # 5.63 X10^3/uL (2.7-7.7); Platelet Count 351 K/mm3 (150-450); RBC Distribution Width CV 16.3 % (11.6-14.6); Red Blood Count 3.57 M/mm3 (4.2-5.4); White Blood Count 9.3 K/mm3 (4.4-11.0)
[2020-12-19 17:24] LABS: BNP,B-Type NATRIURETIC PEPTIDE 158.1 pg/mL (0-100)
== END ==
PROVIDERS: PCP Family Medicine Geriatric Medicine; Visit Provider Family Medicine Geriatric Medicine
DX: R60.9 Edema, unspecified (principal); R06.02 Shortness of breath
CPT/HCPCS: 36415; 80048; 83880; 85025

== ENCOUNTER 2020-12-22 12:06 | Emergency (ER) | payer MEDICARE, BC, SELFPAY ==
[2020-12-22 12:07] VITALS: BP 148/70; PULSE 109; RESP 14; TEMP 37.7; O2SAT 93; BMI 32.4
--- NOTE | 2020-12-22 12:26 | EX.ED.DYSGE1 ---
HPI History of Present Illness Chief Complaint: General Illness Informant: patient and family Narrative Narrative: Patient presents with nausea vomiting dry heaves after getting her Mad[place] booster shot yesterday. She states she had similar symptoms after her second shot. She went in yesterday at about noon and felt fine. She got her booster. She did eat in the evening afterwards. But a little over 12 hours later she started to get nausea vomiting. She has had mostly dry heaves. No abdominal pain. She has had low-grade fever. No cough or dyspnea. No diarrhea. No rashes. She also has some diffuse body pain but this is common and she has not been able to get her normal pain meds in. She also had a T6 and then T8 compression fracture. She is taking Percocet for this but cannot tolerate it because of the vomiting. [facility] Medical History Anxiety Arthritis Bladder disease Cardiac murmur Depression DM2 (diabetes mellitus, type 2) Easy bruising Excessive bleeding Factor 5 Leiden mutation, heterozygous Fibromyalgia Former smoker Gastric reflux High cholesterol History of DVT (deep vein thrombosis) History of hiatal hernia History of irregular heartbeat History of stress test HLD (hyperlipidemia) Nodular goiter Post-menopausal Pulmonary embolism Wears dentures Wears glasses Wears hearing aid Home Medications vitamin E (dl, acetate) 400 units PO DAILY 10/13/13 [History Last Taken 08/02/20 08:00] warfarin 4.5 mg PO DAILY 10/13/13 [History Last Taken 08/03/20 17:00] vitamin B complex 1 tab PO DAILY 10/05/18 [History Last Taken 08/02/20 08:00] cholecalciferol (vitamin D3) 10 mcg (400 unit) capsule 10 mcg PO DAILY 07/08/19 [History Last Taken 08/02/20 08:00] mirtazapine 7.5 mg tablet 7.5 mg PO QHS 07/05/20 [History Last Taken 08/03/20 21:00] pantoprazole 40 mg tablet,delayed release 40 mg PO DAILY 07/05/20 [History Last Taken 08/02/20 08:00] pregabalin 50 mg capsule 50 mg PO BID cap 07/05/20 [History Last Taken 08/03/20 21:00] hydrocodone-acetaminophen 1 tab PO Q8H PRN 3 Days #9 tab 09/25/20 [Rx Last Taken 10/05/20] oxycodone-acetaminophen [Percocet] 1 tab PO Q6H PRN 3 Days #12 tab 11/30/20 [Rx Last Taken Unknown] ondansetron 4 mg PO Q8H PRN #10 tab 12/22/20 [Rx Last Taken Unknown] promethazine [Promethegan] 25 mg RECTAL Q6H PRN PRN #6 suppos. 12/22/20 [Rx Last Taken Unknown] Allergy/AdvReac Type Severity Reaction Status Date / Time castor oil Allergy Unknown Verified 12/22/20 12:10 frovatriptan succinate Allergy Rash Verified 12/22/20 12:10 [From Frova] sumatriptan [From Imitrex] Allergy Rash Verified 12/22/20 12:10 sumatriptan succinate Allergy Rash Verified 12/22/20 12:10 [From Imitrex] vitamin E (d-alpha Allergy Chest Verified 12/22/20 12:10 tocopherol) tightness ezetimibe [From Zetia] AdvReac Severe Severe GI Verified 12/22/20 12:10 upset/stomach pain levofloxacin [From Levaquin] AdvReac Intermediate pain Verified 12/22/20 12:10 IVP DYE Allergy Vomiting Uncoded 12/22/20 12:10 Family History Father CAD (coronary artery disease) Myocardial infarction Mother Colon cancer Surgical History H/O: hysterectomy Hx of appendectomy Hx of kyphoplasty Social History Smoking Status: Former smoker alcohol intake: never seatbelt use: always do you feel safe at home: Yes additional social history: ROS ROS ED Constitutional Constitutional ED: Reports subjective Eyes Eyes: Denies blurry vision ENT ENT ED: Denies rhinorrhea or sore throat Cardiovascular Cardiovascular: Denies chest pain or racing heartbeat Respiratory/Chest Respiratory/Chest: Denies cough, dyspnea or sputum Gastrointestinal Gastrointestinal: Reports nausea and vomiting; Denies abdominal pain, constipation, diarrhea or melena Genitourinary Genitourinary ED: Denies dysuria or hematuria Musculoskeletal Musculoskeletal: Reports arthralgias Integumentary Denies rash Neurologic Neurologic: Denies headache(s), paresthesias or weakness Psychiatric Psychiatric: Reports anxiety Allergic/Immunologic Allergic/Immunologic ED: Denies urticaria EXAM Physical Exam Const Vital Signs: 12/22/20 12:07 12/22/20 12:17 12/22/20 15:07 Temperature 99.8 F H 99.7 F H Temperature Source Temporal Oral Pulse Rate 109 H Respiratory Rate 14 Respiratory Effort Normal Non-Labored Respiratory Pattern Normal Blood Pressure 148/70 H Blood Pressure Mean 96 Pulse Ox 93 Oxygen Delivery Method Room Air 12/22/20 15:29 Temperature Temperature Source Pulse Rate 98 Respiratory Rate 18 Respiratory Effort Respiratory Pattern Blood Pressure Blood Pressure Mean Pulse Ox 94 Oxygen Delivery Method Positive well nourished and well developed General Appearance ED: well developed and NAD; Negative for pallor HEENT Reports dry mucous membranes Negative for trauma or tenderness Mouth ED: Yes dry mucous membranes Mouth: dry mucous membranes Eyes General Eye ED: Negative for pale conjunctiva or scleral icterus Neck no JVD Chest Wall inspection of chest normal Resp normal respiratory effort and clear to auscultation bilaterally Effort and Inspection: Negative for pain with movement Auscultation: Negative for rales, rhonchi or wheezes Cardio regular rate, regular rhythm and no murmurs GI normal to inspection, nondistended, normoactive bowel sounds, non-tender and non-distended Palpation: soft Back/Spine no CVA tenderness Neuro oriented x3 Sensorium / Orientation: alert Psych mental status grossly normal Skin no rashes or lesions noted, no wounds and skin turgor normal General Skin Exam: Negative for jaundice or pallor MDM MDM MDM Narrative Medical decision making narrative: Patient CBC shows mild anemia. Electrolytes show no marked abnormalities. No sign of significant dehydration. INR is therapeutic. Patient's recheck. Her nausea is better. She still has some. I will get her some Zofran even though this is usually not as effective for her. We will get her home with Phenergan suppositories which she has used successfully before. I will also write for Zofran so she has another option. We discussed expected course and reasons to return. Lab Data Attestation: I reviewed the patient's lab results. Labs: Laboratory Results - last 24 hr 12/22/20 12/22/20 12/22/20 12:32 12:32 12:32 WBC 8.4 RBC 4.03 L Hgb 10.3 L Hct 33.5 L MCV 83.1 MCH 25.6 L MCHC 30.7 L RDW Std Deviation 50.1 H RDW Coeff of Mallika 16.5 H Plt Count 349 MPV 10.6 Immature Gran % (Auto) 0.500 Neut % (Auto) 78.3 H Lymph % (Auto) 12.6 L Frederick % (Auto) 6.8 Eos % (Auto) 1.3 Baso % (Auto) 0.5 Absolute Neuts (auto) 6.6 Absolute Lymphs (auto) 1.06 Nucleated RBC % 0 PT 21.0 H INR 1.9 Sodium 136 Potassium 3.7 Chloride 101 Carbon Dioxide 28.0 Anion Gap 7 BUN 7 Creatinine 0.72 Estim Creat Clear Calc 53.19 Est GFR (MDRD) Af Amer 102 Est GFR (MDRD) Non-Af 84 BUN/Creatinine Ratio 9.8 L Glucose 100 Calcium 9.0 Discharge Plan Triage Chief Complaint: General Illness ED Provider: Red Pedraza Dx/Rx/DC Orders Clinical Impression: Adverse effect of COVID-19 vaccine, Nausea & vomiting Instructions: Nausea Vomit Control Prescriptions: New promethazine [Promethegan] 25 MG suppository 25 mg RECTAL Q6H PRN PRN (Reason: Nausea) Qty: 6 RF: 0 ondansetron 4 mg tablet,disintegrating 4 mg PO Q8H PRN (Reason: nausea and vomiting) Qty: 10 RF: 0 No Action cholecalciferol (vitamin D3) 10 mcg (400 unit) capsule 10 mcg PO DAILY RF: 0 mirtazapine 7.5 mg tablet 7.5 mg PO QHS RF: 0 pantoprazole 40 mg tablet,delayed release (DR/EC) 40 mg PO DAILY RF: 0 pregabalin [Lyrica] 50 mg capsule 50 mg PO BID RF: 0 warfarin 5 MG tablet 4.5 mg PO DAILY RF: 0 vitamin E (dl, acetate) 400 UNITS capsule 400 units PO DAILY RF: 0 vitamin B complex 1 EACH tablet 1 tab PO DAILY RF: 0 hydrocodone-acetaminophen 5-325 mg tablet 1 tab PO Q8H PRN (Reason: pain) 3 Days Qty: 9 RF: 0 oxycodone-acetaminophen [Percocet] 5-325 mg tablet 1 tab PO Q6H PRN (Reason: pain) 3 Days Qty: 12 RF: 0 Primary Care Provider: Theo Watters Chi Referrals: Theo Watters Chi, MD [Primary Care Provider] - 1-2 Days if not improving Disposition Disposition: Home, Self Care Discharge Date/Time: 12/22/20 15:31
[2020-12-22] MEDS: proMETHazine 25 MG/ML Syringe 12.5 MG IM (12:47)
[2020-12-22] MEDS: Morphine 4 MG/ML Syringe IV (12:48)
[2020-12-22 13:04] LABS: Absolute Lymphocyte Count 1.06 X10^3/uL (0.83-4.51); Absolute Neutrophil Count 6.6 X10^3/uL (2.0-7.7); Basophil# 0.04 X10^3/uL; Basophil% 0.5 % (0-1); Eosinophil# 0.11 X10^3/uL; Eosinophils% 1.3 % (0-5); Hematocrit 33.5 % (37-47); Hemoglobin 10.3 g/dL (12.0-15.0); Lymphocyte # 1.06 X10^3/ul (0.83-4.51); Lymphocyte % 12.6 % (19-41); Mean Corp Hgb Conc 30.7 g/dL (32-36); Mean Corpuscular Hgb 25.6 pg (27.0-32.0); Mean Corpuscular Volume 83.1 fL (81-99); Mean Platelet Vol. 10.6 fl (6.2-12.0); Monocyte# 0.57 X10^3/uL; Monocyte% 6.8 % (0-10); NRBC Flagged by Analyzer 0 % (0-5); Neutrophil # 6.59 X10^3/uL (2.7-7.7); Neutrophil % 78.3 % (47-70); Platelet Count 349 K/mm3 (150-450); RBC Distribution Width CV 16.5 % (11.6-14.6); RBC Distribution Width SD 50.1 fl (35.1-43.9); Red Blood Count 4.03 M/mm3 (4.2-5.4); White Blood Count 8.4 K/mm3 (4.4-11.0)
[2020-12-22 13:08] LABS: International Normalized Ratio 1.9
[2020-12-22 13:11] LABS: Anion Gap 7 (5-15); BUN 7 mg/dL (7-18); BUN/Creat Ratio 9.8 RATIO (10-20); Chloride 101 mmol/L (98-107); Creatinine, Serum 0.72 mg/dL (0.55-1.02); EST Glomerular Filtration Rate 84 mL/min (>60); Est Glom Filt Rate - Afr Amer 102 mL/min (>60); Estimated Creatinine Clearance 53.19 ml/min; Glucose 100 mg/dL (74-106); Potassium 3.7 mmol/L (3.5-5.1); Sodium Level 136 mmol/L (136-145)
[2020-12-22 15:07] VITALS: TEMP 37.6
[2020-12-22 15:29] VITALS: PULSE 98; RESP 18; O2SAT 94
== END 2020-12-22 15:31 | disposition home or self-care (01) ==
PROVIDERS: Emergency Provider Emergency Medicine; PCP Family Medicine Geriatric Medicine
DX: R11.2 Nausea with vomiting, unspecified (principal); T50.B95A Adverse effect of other viral vaccines, initial encounter
CPT/HCPCS: 80048; 85025; 85610; 96372; 96374; 99283; J7040; A4216

== ENCOUNTER → 2021-01-10 13:00 | Outpatient (CLI) | payer MEDICARE, BC, SELFPAY ==
--- NOTE | 2021-01-10 13:07 | ECHOD_ITS ---
Reason For Study: SOB, swelling Procedure This was a 2D Doppler, Color Flow transthoracic echocardiogram. Exam performed in department. Left Ventricle Normal LV size. The estimated ejection fraction is 55 %. Stage 2 diastolic dysfunction. No regional wall motion abnormalities noted. Right Ventricle Normal RV size. Normal systolic function. Atria Normal left atrium. Normal right atrium. No doppler evidence for ASD. Mitral Valve There is no mitral valve stenosis. No mitral valve insufficiency. Tricuspid Valve There is no tricuspid stenosis. Trivial tricuspid valve insufficiency. Pulmonary artery systolic pressure is 40 mmHg. Aortic Valve Trisinus/trileaflet aortic valve. There is no aortic stenosis. No aortic valve insufficiency. Pulmonic Valve There is no pulmonic valvular stenosis. Trivial pulmonic valve insufficiency. Great Vessels Normal aortic root. Pericardium/Pleural Trivial pericardial effusion. MMode/2D Measurements & Calculations LVIDd: 3.6 cm IVSd: 1.1 cm Ao root diam: 2.9 cm LVIDs: 2.8 cm LVPWd: 1.1 cm RVDd: 2.9 cm FS: 24.4 % LAV(MOD-bp): 46.6 ml LVAd ap4: 22.2 cm2 SV(MOD-sp4): 39.7 ml LAV(MOD-bp) Indexed: 28.9 ml/m2 LVLd ap4: 6.5 cm LAV(MOD-sp2): 33.5 ml EDV(MOD-sp4): 61.3 ml LAV(MOD-sp4): 60.9 ml EDV(sp4-el): 63.8 ml LVAs ap4: 11.6 cm2 LVLs ap4: 5.4 cm ESV(MOD-sp4): 21.6 ml ESV(sp4-el): 21.2 ml EF(MOD-sp4): 64.8 % EF(sp4-el): 66.8 % SV(sp4-el): 42.6 ml LA A4 area: 19.3 cm2 LA dimension(2D): 3.8 cm RA A4 area: 11.3 cm2 Doppler Measurements & Calculations MV E max go: 94.5 cm/sec Lat Peak E' Go: 6.5 cm/sec Med Peak E' Go: 4.5 cm/sec MV A max go: 100.4 cm/sec E/E' lat: 14.6 E/E' med: 21.2 MV E/A: 0.94 Ao V2 max: 181.1 cm/sec LV V1 max: 105.0 cm/sec PA V2 max: 64.0 cm/sec Ao max P.1 mmHg LV V1 max P.4 mmHg TR max go: 277.5 cm/sec TR max P.9 mmHg ECHO/Echo Complete Interpretation Summary The estimated ejection fraction is 55 %. Stage 2 diastolic dysfunction. Trivial pericardial effusion. Ordering Physician: Theo Watters Referring Physician: Theo Watters Chi Performed By: Olive Keen RDCS
== END ==
PROVIDERS: PCP Family Medicine Geriatric Medicine; Referring Provider Family Medicine Geriatric Medicine; Visit Provider Family Medicine Geriatric Medicine
DX: R06.02 Shortness of breath (principal); R79.89 Other specified abnormal findings of blood chemistry
CPT/HCPCS: 93306

== ENCOUNTER → 2021-01-14 16:09 | Outpatient (CLI) | payer MEDICARE, BC, SELFPAY ==
[2021-01-14 18:26] LABS: Amphetamine Urine VISTA NEGATIVE (<1000 ng/mL); Barbiturate Urine VISTA NEGATIVE (< 200 ng/mL); Benzodiazepine Urine VISTA NEGATIVE (< 200 ng/mL); Cocaine Urine VISTA NEGATIVE (< 300 ng/mL); Ecstacy Urine VISTA NEGATIVE (< 500 ng/mL); Methadone Urine VISTA NEGATIVE (< 300 ng/mL); PCP Urine VISTA NEGATIVE (< 25 ng/mL); THC Urine VISTA NEGATIVE (< 50 ng/mL); Vista UDS pH Range 6
== END ==
PROVIDERS: PCP Family Medicine Geriatric Medicine; Referring Provider Anesthesiology Pain Medicine; Visit Provider Anesthesiology Pain Medicine
DX: F11.20 Opioid dependence, uncomplicated (principal)
CPT/HCPCS: 80307

== ENCOUNTER → 2021-01-16 10:17 | Outpatient (CLI) | payer MEDICARE, BC, SELFPAY ==
[2021-01-16 12:16] LABS: Absolute Lymphocyte Count 2.07 X10^3/uL (0.83-4.51); Absolute Neutrophil Count 5.7 X10^3/uL (2.0-7.7); Basophil# 0.04 X10^3/uL; Basophil% 0.4 % (0-1); Eosinophil# 0.43 X10^3/uL; Eosinophils% 4.7 % (0-5); Hematocrit 33.5 % (37-47); Hemoglobin 10.2 g/dL (12.0-15.0); Lymphocyte # 2.07 X10^3/ul (0.83-4.51); Lymphocyte % 22.4 % (19-41); Mean Corp Hgb Conc 30.4 g/dL (32-36); Mean Corpuscular Hgb 26.1 pg (27.0-32.0); Mean Corpuscular Volume 85.7 fL (81-99); Mean Platelet Vol. 10.9 fl (6.2-12.0); Monocyte% 9.7 % (0-10); NRBC Flagged by Analyzer 0 % (0-5); Neutrophil # 5.74 X10^3/uL (2.7-7.7); Neutrophil % 62.2 % (47-70); Platelet Count 306 K/mm3 (150-450); RBC Distribution Width CV 18.3 % (11.6-14.6); RBC Distribution Width SD 56.5 fl (35.1-43.9); Red Blood Count 3.91 M/mm3 (4.2-5.4); White Blood Count 9.2 K/mm3 (4.4-11.0)
[2021-01-16 13:21] LABS: Vitamin D,25 Hydroxy 24.4 ng/mL
[2021-01-16 13:25] LABS: ALB/GLOB Ratio 0.8 RATIO (0.9-2.4); AST(SGOT) 18 U/L (15-37); Alanine Aminotransfer ALT/SGPT 25 U/L (13-56); Albumin, Serum 3.4 g/dL (3.2-5.0); Alkaline Phosphatase 109 U/L (45-117); Anion Gap 12 (5-15); BUN 8 mg/dL (7-18); BUN/Creat Ratio 11.3 RATIO (10-20); Calcium,Total 8.9 mg/dL (8.5-10.1); Chloride 99 mmol/L (98-107); Creatinine, Serum 0.71 mg/dL (0.55-1.02); EST Glomerular Filtration Rate 85 mL/min (>60); Est Glom Filt Rate - Afr Amer 103 mL/min (>60); Globulin 4.1 g/dL (2.2-4.2); Glucose 108 mg/dL (74-106); Potassium 3.8 mmol/L (3.5-5.1); Protein, Total 7.5 g/dL (6.4-8.2); Sodium Level 135 mmol/L (136-145); Thyroid Stim Hormone (TSH) 1.35 uIU/mL (0.358-3.74)
== END ==
PROVIDERS: PCP Family Medicine Geriatric Medicine; Visit Provider Family Medicine Geriatric Medicine
DX: E55.9 Vitamin D deficiency, unspecified (principal); I10 Essential (primary) hypertension
CPT/HCPCS: 36415; 80053; 82306; 84443; 85025

== ENCOUNTER 2021-04-15 13:05 | Outpatient (CLI) | payer MEDICARE, BC, SELFPAY ==
[2021-04-15 13:55] LABS: Amphetamine Urine VISTA NEGATIVE (<1000 ng/mL); Barbiturate Urine VISTA NEGATIVE (< 200 ng/mL); Benzodiazepine Urine VISTA NEGATIVE (< 200 ng/mL); Cocaine Urine VISTA NEGATIVE (< 300 ng/mL); Ecstacy Urine VISTA NEGATIVE (< 500 ng/mL); Methadone Urine VISTA NEGATIVE (< 300 ng/mL); PCP Urine VISTA NEGATIVE (< 25 ng/mL); THC Urine VISTA NEGATIVE (< 50 ng/mL); Vista UDS pH Range 6
== END 2021-04-15 23:59 | disposition short-term general hospital (02) ==
LOC: LAB 13:07
PROVIDERS: PCP Family Medicine Geriatric Medicine; Referring Provider Anesthesiology Pain Medicine; Visit Provider Anesthesiology Pain Medicine
DX: F11.20 Opioid dependence, uncomplicated (principal)
CPT/HCPCS: 80307

== ENCOUNTER → 2021-07-31 | Outpatient (CLI) | payer MEDICARE, BC, SELFPAY ==
[2021-07-31 12:33] LABS: Absolute Lymphocyte Count 3.18 X10^3/uL (0.83-4.51); Absolute Neutrophil Count 7.2 X10^3/uL (2.0-7.7); Basophil# 0.04 X10^3/uL; Basophil% 0.3 % (0-1); Eosinophil# 0.18 X10^3/uL; Eosinophils% 1.5 % (0-5); Hematocrit 38.6 % (37-47); Hemoglobin 12.1 g/dL (12.0-15.0); Lymphocyte # 3.18 X10^3/ul (0.83-4.51); Lymphocyte % 26.9 % (19-41); Mean Corp Hgb Conc 31.3 g/dL (32-36); Mean Corpuscular Hgb 27.8 pg (27.0-32.0); Mean Corpuscular Volume 88.7 fL (81-99); Mean Platelet Vol. 11.1 fl (6.2-12.0); Monocyte# 1.15 X10^3/uL; Monocyte% 9.7 % (0-10); NRBC Flagged by Analyzer 0.2 % (0-5); Neutrophil # 7.22 X10^3/uL (2.7-7.7); Neutrophil % 61.1 % (47-70); Platelet Count 303 K/mm3 (150-450); RBC Distribution Width CV 16.9 % (11.6-14.6); RBC Distribution Width SD 54.6 fl (35.1-43.9); Red Blood Count 4.35 M/mm3 (4.2-5.4); White Blood Count 11.8 K/mm3 (4.4-11.0)
[2021-07-31 12:41] LABS: Vitamin D,25 Hydroxy 46.4 ng/mL
[2021-07-31 13:03] LABS: ALB/GLOB Ratio 0.9 RATIO (0.9-2.4); AST(SGOT) 18 U/L (15-37); Alanine Aminotransfer ALT/SGPT 30 U/L (13-56); Albumin, Serum 3.6 g/dL (3.2-5.0); Alkaline Phosphatase 61 U/L (45-117); Anion Gap 6 (5-15); BUN 13 mg/dL (7-18); BUN/Creat Ratio 17.1 RATIO (10-20); Calcium,Total 9.4 mg/dL (8.5-10.1); Chloride 101 mmol/L (98-107); Creatinine, Serum 0.76 mg/dL (0.55-1.02); EST Glomerular Filtration Rate 78 mL/min (>60); Est Glom Filt Rate - Afr Amer 95 mL/min (>60); Globulin 4.1 g/dL (2.2-4.2); Glucose 78 mg/dL (74-106); Potassium 4.1 mmol/L (3.5-5.1); Protein, Total 7.7 g/dL (6.4-8.2); Sodium Level 138 mmol/L (136-145); Thyroid Stim Hormone (TSH) 1.75 uIU/mL (0.358-3.74)
== END | disposition home or self-care (01) ==
LOC: POLAB3 11:01
PROVIDERS: PCP Family Medicine Geriatric Medicine; Visit Provider Family Medicine Geriatric Medicine
DX: R53.83 Other fatigue (principal); E11.9 Type 2 diabetes mellitus without complications; E55.9 Vitamin D deficiency, unspecified
CPT/HCPCS: 36415; 80053; 82306; 84443; 85025

== ENCOUNTER 2021-08-23 23:08 | Emergency (ER) | payer MEDICARE, BC, SELFPAY ==
[2021-08-23 23:09] VITALS: BP 176/74; PULSE 89; RESP 15; TEMP 37.2; O2SAT 95; BMI 31.4
--- NOTE | 2021-08-23 23:33 | EDS_ITS ---
HPI HPI - Female History of Present Illness Chief Complaint: Complaint Informant: patient Pain Pain: Positive for Pelvic Pain Onset: Yesterday Context: Gradual Onset Timing: Intermittent Quality: Positive for - (Pressure) Location: Suprapubic Current Severity: Mild Maximum Severity: Mild Worsened by: - (Urinating) Relieved by: - (Nothing in particular) Associated Symptoms Associated Symptoms: Positive for Dysuria, Frequency and Urgency Narrative Narrative: About 24 hours worth of urinary frequency, burning dysuria, urinary urgency, some occasional mild lower abdominal discomfort, and a fever up to about 100 tonight. No vomiting, no changes or increase in her chronic low back pain. Concerned she has a UTI, she has had them before. She is on warfarin, she denies any recent hematuria. [facility] Medical History Anxiety Arthritis Bladder disease Cardiac murmur Depression DM2 (diabetes mellitus, type 2) Easy bruising Excessive bleeding Factor 5 Leiden mutation, heterozygous Fibromyalgia Former smoker Gastric reflux High cholesterol History of DVT (deep vein thrombosis) History of hiatal hernia History of irregular heartbeat History of stress test HLD (hyperlipidemia) Nodular goiter Post-menopausal Pulmonary embolism Wears dentures Wears glasses Wears hearing aid Home Medications vitamin E (dl, acetate) 400 units PO DAILY 10/13/13 [History Last Taken 08/02/20 08:00] warfarin 4.5 mg PO QODAY 10/13/13 [History Last Taken 08/03/20 17:00] vitamin B complex 1 tab PO DAILY 10/05/18 [History Last Taken 08/02/20 08:00] cholecalciferol (vitamin D3) 10 mcg (400 unit) capsule 10 mcg PO DAILY 07/08/19 [History Last Taken 08/02/20 08:00] mirtazapine 7.5 mg tablet 7.5 mg PO QHS 07/05/20 [History Last Taken 08/03/20 21:00] pantoprazole 40 mg tablet,delayed release 40 mg PO DAILY 07/05/20 [History Last Taken 08/02/20 08:00] pregabalin 50 mg capsule 50 mg PO BID cap 07/05/20 [History Last Taken 08/03/20 21:00] hydrocodone-acetaminophen 1 tab PO Q8H PRN 3 Days #9 tab 09/25/20 [Rx Last Taken 10/05/20] oxycodone-acetaminophen [Percocet] 1 tab PO Q6H PRN 3 Days #12 tab 11/30/20 [Rx Last Taken Unknown] ondansetron 4 mg PO Q8H PRN #10 tab 12/22/20 [Rx Last Taken Unknown] promethazine [Promethegan] 25 mg RECTAL Q6H PRN PRN #6 suppos. 12/22/20 [Rx Last Taken Unknown] warfarin 4.5 mg PO QODAY 08/23/21 [History Last Taken Unknown] cephalexin 500 mg PO Q6 #20 capsule 08/24/21 [Rx Last Taken Unknown] Allergy/AdvReac Type Severity Reaction Status Date / Time castor oil Allergy Unknown Verified 08/23/21 23:13 frovatriptan succinate Allergy Rash Verified 08/23/21 23:13 [From Frova] sumatriptan [From Imitrex] Allergy Rash Verified 08/23/21 23:13 sumatriptan succinate Allergy Rash Verified 08/23/21 23:13 [From Imitrex] vitamin E (d-alpha Allergy Chest Verified 08/23/21 23:13 tocopherol) tightness ezetimibe [From Zetia] AdvReac Severe Severe GI Verified 08/23/21 23:13 upset/stomach pain levofloxacin [From Levaquin] AdvReac Intermediate pain Verified 08/23/21 23:13 IVP DYE Allergy Vomiting Uncoded 12/22/20 12:10 Family History Father CAD (coronary artery disease) Myocardial infarction Mother Colon cancer Surgical History H/O: hysterectomy Hx of appendectomy Hx of kyphoplasty Social History Smoking Status: Former smoker alcohol intake: never seatbelt use: always do you feel safe at home: Yes additional social history: ROS ROS ED Constitutional Constitutional ED: Denies chills or fever(s) Eyes Eyes: Denies change in vision or diplopia ENT ENT ED: Denies rhinorrhea or sore throat Cardiovascular Cardiovascular: Denies chest pain or palpitations Respiratory/Chest Respiratory/Chest: Denies cough or dyspnea Gastrointestinal Gastrointestinal: Reports as per HPI, abdominal pain and nausea; Denies diarrhea or vomiting Genitourinary Genitourinary ED: Reports as per HPI, dysuria, urinary frequency and urinary urgency; Denies hematuria, vaginal bleeding or vaginal discharge Musculoskeletal Musculoskeletal: Reports as per HPI and back pain; Denies neck pain Integumentary Denies abscess or rash Neurologic Neurologic: Denies headache(s), paresthesias or weakness Psychiatric Psychiatric: Denies anxiety or suicidal thoughts EXAM Physical Exam Const Vital Signs: 08/23/21 23:09 08/24/21 01:58 Temperature 98.9 F Temperature Source Temporal Pulse Rate 89 80 Respiratory Rate 15 16 Blood Pressure 176/74 H 143/51 H Blood Pressure Mean 108 81 Pulse Ox 95 90 Oxygen Delivery Method Room Air Room Air Positive well nourished and well developed General Appearance ED: well developed and NAD HEENT Reports moist mucous membranes normocephalic and atraumatic Eyes PERRL and EOMs intact bilaterally Neck full ROM and supple Resp normal respiratory effort and clear to auscultation bilaterally Cardio regular rate, regular rhythm and no murmurs GI non-tender and non-distended Auscultation: normoactive bowel sounds Palpation: soft Speculum Exam - Vagina: Negative for vaginal bleeding or vaginal discharge Back/Spine no CVA tenderness General Back: other FROM Lumbar Spine / Lower Back: pain with ROM Extremity normal to inspection General Extremety ED: Negative for edema, pulses abnormal or tenderness General Extremity: Negative for edema or pulses abnormal Neuro oriented x3, CN's II-XII intact bilaterally and no sensory deficits noted Sensorium / Orientation: awake and alert Motor Exam: strength 5/5 throughout Skin no rashes or lesions noted and no wounds MDM MDM MDM Narrative Medical decision making narrative: Initially, the patient's urine was obtained, it shows positive nitrite but she took Azo prior to coming here, so this could be a false positive, there is no pyuria. Her symptoms are concerning for cystitis and since it is less apparent on this urinalysis that she could have that, I did more of a work-up. She is a little supratherapeutic on her INR but not currently bleeding, other labs are unremarkable and a CT abdomen/pelvis shows no obstructive uropathy, perinephric stranding or other renal pathology, only incidental diverticulosis and hiatal hernia are noted. At this time I t hink it would be reasonable to try her on a short course of antibiotics (5 days since cephalexin is the most appropriate antibiotic given her warfarin), send urine culture, and have her follow-up if her symptoms do not resolve. She is comfortable with that plan. Lab Data Attestation: I reviewed the patient's lab results. Labs: Laboratory Results - last 24 hr 08/23/21 08/24/21 08/24/21 23:30 00:27 00:27 WBC 9.8 RBC 3.98 L Hgb 11.3 L Hct 35.4 L MCV 88.9 MCH 28.4 MCHC 31.9 L RDW Std Deviation 52.4 H RDW Coeff of Mallika 16.1 H Plt Count 236 MPV 10.4 Immature Gran % (Auto) 0.500 Neut % (Auto) 75.4 H Lymph % (Auto) 12.6 L [place] % (Auto) 9.3 Eos % (Auto) 1.9 Baso % (Auto) 0.3 Absolute Neuts (auto) 7.4 Absolute Lymphs (auto) 1.24 Nucleated RBC % 0 PT 35.8 H INR 3.6 Sodium Potassium Chloride Carbon Dioxide Anion Gap BUN Creatinine Estim Creat Clear Calc Est GFR (MDRD) Af Amer Est GFR (MDRD) Non-Af BUN/Creatinine Ratio Glucose Calcium Urine Color Yellow Urine Clarity Clear Urine pH 6.0 Ur Specific [place] 1.010 Urine Protein Negative Urine Glucose (UA) Normal Urine Ketones Negative Urine Occult Blood 25 H Urine Nitrite Positive H Urine Bilirubin Negative Urine Urobilinogen 1 H Ur Leukocyte Esterase Negative Urine RBC 0 SEEN Urine WBC 0-5 SEEN Ur Squamous Epith Cells 0-5 SEEN Urine Bacteria RARE Urine Mucus 0 SEEN 08/24/21 00:27 WBC RBC Hgb Hct MCV MCH MCHC RDW Std Deviation RDW Coeff of Mallika Plt Count MPV Immature Gran % (Auto) Neut % (Auto) Lymph % (Auto) [place] % (Auto) Eos % (Auto) Baso % (Auto) Absolute Neuts (auto) Absolute Lymphs (auto) Nucleated RBC % PT INR Sodium 139 Potassium 3.2 L Chloride 108 H Carbon Dioxide 26.0 Anion Gap 5 BUN 7 Creatinine 0.53 L Estim Creat Clear Calc 48.92 Est GFR (MDRD) Af Amer 144 Est GFR (MDRD) Non-Af 119 BUN/Creatinine Ratio 13.2 Glucose 95 Calcium 7.3 L Urine Color Urine Clarity Urine pH Ur Specific [place] Urine Protein Urine Glucose (UA) Urine Ketones Urine Occult Blood Urine Nitrite Urine Bilirubin Urine Urobilinogen Ur Leukocyte Esterase Urine RBC Urine WBC Ur Squamous Epith Cells Urine Bacteria Urine Mucus Radiography Diagnostic Testing: Clinical Impression(s) from Imaging Studies Abdomen/Pelvis CT 08/24/21 00:10 IMPRESSION: Large hiatal hernia. Sigmoid diverticulosis Electronically Signed: Sudheer Garza MD at 2:06 EDT , Discharge Plan Triage Chief Complaint: Complaint ED Provider: Frank Redmond Dx/Rx/DC Orders Clinical Impression: Dysuria, Subjective fever, Urinary frequency, Supratherapeutic INR Instructions: ED CYSTITIS Female Adult Prescriptions: New cephalexin [cephalexin] 500 MG capsule 500 mg PO Q6 Qty: 20 RF: 0 No Action cholecalciferol (vitamin D3) 10 mcg (400 unit) capsule 10 mcg PO DAILY RF: 0 mirtazapine 7.5 mg tablet 7.5 mg PO QHS RF: 0 pantoprazole 40 mg tablet,delayed release (DR/EC) 40 mg PO DAILY RF: 0 pregabalin [Lyrica] 50 mg capsule 50 mg PO BID RF: 0 warfarin 5 MG tablet 4.5 mg PO QODAY RF: 0 vitamin E (dl, acetate) 400 UNITS capsule 400 units PO DAILY RF: 0 vitamin B complex 1 EACH tablet 1 tab PO DAILY RF: 0 hydrocodone-acetaminophen 5-325 mg tablet 1 tab PO Q8H PRN (Reason: pain) 3 Days Qty: 9 RF: 0 oxycodone-acetaminophen [Percocet] 5-325 mg tablet 1 tab PO Q6H PRN (Reason: pain) 3 Days Qty: 12 RF: 0 promethazine [Promethegan] 25 MG suppository 25 mg RECTAL Q6H PRN PRN (Reason: Nausea) Qty: 6 RF: 0 ondansetron 4 mg tablet,disintegrating 4 mg PO Q8H PRN (Reason: nausea and vomiting) Qty: 10 RF: 0 warfarin 4 mg Tablet 4.5 mg PO QODAY RF: 0 Primary Care Provider: Theo Watters Chi Referrals: Theo Watters Chi, MD [Primary Care Provider] - 3-5 Days if not improving Activity Restrictions/Additional Instructions: Hold your next dose of Coumadin, your INR is 3.6 today a little high. Disposition Disposition: Home, Self Care
[2021-08-23] MEDS: Ondansetron ODT 4 MG Tablet 8 MG PO (23:42)
[2021-08-23 23:52] LABS: Mucous, Urine 0 SEEN /hpf (<or=2+); Red Blood Cells-Urine 0 SEEN /hpf (0-5)
[2021-08-23 23:54] LABS: Color, Urine Yellow (Yellow); Glucose, Dipstick Normal (Normal); Ketone-Dipstick Negative (Negative); Leukocyte Esterase-Dipstick Negative /ul (Negative); Nitrite-Dipstick Positive (Negative); Occult Blood-Urine 25 /ul (Negative); Protein-Dipstick Negative (Negative); Urine Bilirubin Dipstick Negative (Negative); Urine Clarity Clear (Clear); Urine Urobilinogen 1 mg/dl (Normal)
[2021-08-24 00:05] LABS: Bacteria RARE /hpf (None Seen); Squamous Epithelial Cells - UA 0-5 SEEN /hpf (5-10); White Blood Cells 0-5 SEEN /hpf (0-5)
--- NOTE | 2021-08-24 00:10 | CT_ITS ---
STUDY: CT ABDOMEN AND PELVIS WITHOUT CONTRAST REASON FOR EXAM: Female, 76 years old. urinary symptoms, back pain RADIATION DOSAGE (If Supplied By Facility): CTDIvol = ( 9.94 ) mGy, DLP = ( 461.74 ) mGycm TECHNIQUE: Transaxial images were obtained from the dome of the diaphragm to the symphysis pubis without oral contrast, and without intravenous contrast. Sagittal and coronal images were reconstructed. Individualized dose optimization techniques were used for this CT. COMPARISON: None. FINDINGS: The visualized lung bases are unremarkable. The visualized portions of the heart are within normal limits. Normal liver. Normal gallbladder and extrahepatic biliary system. Normal spleen. Normal pancreas. Normal bilateral adrenal glands. Normal right kidney. Normal left kidney. There is a large hiatal hernia composed mostly of the fundus of the stomach. Normal small intestine. There are multiple colonic diverticula consistent with diverticulosis. There is non-visualization of the appendix. Normal abdominal aorta. Normal inferior vena cava. Normal retroperitoneum. Normal urinary bladder. Normal abdominal wall. Normal osseous structures. CT/Abdomen/Pelvis without Cont IMPRESSION: Large hiatal hernia. Sigmoid diverticulosis Electronically Signed: Sudheer Garaz MD at 2:06 EDT ,
[2021-08-24 00:34] LABS: Absolute Lymphocyte Count 1.24 X10^3/uL (0.83-4.51); Absolute Neutrophil Count 7.4 X10^3/uL (2.0-7.7); Basophil# 0.03 X10^3/uL; Basophil% 0.3 % (0-1); Eosinophil# 0.19 X10^3/uL; Eosinophils% 1.9 % (0-5); Hematocrit 35.4 % (37-47); Hemoglobin 11.3 g/dL (12.0-15.0); Lymphocyte # 1.24 X10^3/ul (0.83-4.51); Lymphocyte % 12.6 % (19-41); Mean Corp Hgb Conc 31.9 g/dL (32-36); Mean Corpuscular Hgb 28.4 pg (27.0-32.0); Mean Corpuscular Volume 88.9 fL (81-99); Mean Platelet Vol. 10.4 fl (6.2-12.0); Monocyte# 0.91 X10^3/uL; Monocyte% 9.3 % (0-10); NRBC Flagged by Analyzer 0 % (0-5); Neutrophil # 7.39 X10^3/uL (2.7-7.7); Neutrophil % 75.4 % (47-70); Platelet Count 236 K/mm3 (150-450); RBC Distribution Width CV 16.1 % (11.6-14.6); RBC Distribution Width SD 52.4 fl (35.1-43.9); Red Blood Count 3.98 M/mm3 (4.2-5.4); White Blood Count 9.8 K/mm3 (4.4-11.0)
[2021-08-24 00:46] LABS: International Normalized Ratio 3.6; Prothrombin Time (Protime)PT. 35.8 SECONDS (11.7-14.9)
[2021-08-24 00:50] LABS: Anion Gap 5 (5-15); BUN 7 mg/dL (7-18); BUN/Creat Ratio 13.2 RATIO (10-20); Calcium,Total 7.3 mg/dL (8.5-10.1); Chloride 108 mmol/L (98-107); Creatinine, Serum 0.53 mg/dL (0.55-1.02); EST Glomerular Filtration Rate 119 mL/min (>60); Est Glom Filt Rate - Afr Amer 144 mL/min (>60); Estimated Creatinine Clearance 48.92 ml/min; Glucose 95 mg/dL (74-106); Potassium 3.2 mmol/L (3.5-5.1); Sodium Level 139 mmol/L (136-145)
[2021-08-24 01:58] VITALS: BP 143/51; PULSE 80; RESP 16; O2SAT 90
[2021-08-24] MEDS: Cephalexin 250 MG Capsule 500 MG PO (02:37)
[2021-08-24 02:42] VITALS: BP 143/51; PULSE 80; RESP 16; O2SAT 90
== END 2021-08-24 02:42 | disposition home or self-care (01) ==
PROVIDERS: Emergency Provider Emergency Medicine; PCP Family Medicine Geriatric Medicine; Visit Provider Emergency Medicine
DX: R30.0 Dysuria (principal); E11.9 Type 2 diabetes mellitus without complications; R50.9 Fever, unspecified; E78.5 Hyperlipidemia, unspecified; R35.0 Frequency of micturition; R79.1 Abnormal coagulation profile; M79.7 Fibromyalgia; K21.9 Gastro-esophageal reflux disease without esophagitis; M54.50 Low back pain, unspecified; G89.29 Other chronic pain; Z78.0 Asymptomatic menopausal state; Z79.01 Long term (current) use of anticoagulants; Z79.899 Other long term (current) drug therapy; Z86.718 Personal history of other venous thrombosis and embolism; Z87.891 Personal history of nicotine dependence
CPT/HCPCS: 74176; 80048; 81001; 85025; 85610; 87086; 87088; 99283; A4216

== ENCOUNTER → 2021-10-31 | Outpatient (CLI) | payer MEDICARE, BC, SELFPAY ==
[2021-10-31 15:36] LABS: Amphetamine Urine VISTA NEGATIVE (<1000 ng/mL); Barbiturate Urine VISTA NEGATIVE (< 200 ng/mL); Benzodiazepine Urine VISTA NEGATIVE (< 200 ng/mL); Cocaine Urine VISTA NEGATIVE (< 300 ng/mL); Ecstacy Urine VISTA NEGATIVE (< 500 ng/mL); Methadone Urine VISTA NEGATIVE (< 300 ng/mL); PCP Urine VISTA NEGATIVE (< 25 ng/mL); THC Urine VISTA NEGATIVE (< 50 ng/mL); Vista UDS pH Range 4
== END | disposition home or self-care (01) ==
LOC: LAB 13:59
PROVIDERS: PCP Family Medicine Geriatric Medicine; Referring Provider Anesthesiology Pain Medicine; Visit Provider Anesthesiology Pain Medicine
DX: F11.20 Opioid dependence, uncomplicated (principal)
CPT/HCPCS: 80307

== ENCOUNTER 2022-02-26 20:53 | Emergency (ER) | payer MEDICARE, BC, SELFPAY ==
[2022-02-26 20:55] VITALS: BP 194/81; PULSE 74; RESP 18; TEMP 36.8; O2SAT 98; BMI 30.5
--- NOTE | 2022-02-26 22:37 | EDS_ITS ---
HPI History of Present Illness Chief Complaint: Back Detail of Chief Complaint: Back pain Informant: patient Narrative Narrative: Patient presents the emergency department with complaint of severe back pain that started yesterday. Patient states that the pain started after she started waking up from her spinal injection by pain management. Patient has had multiple spinal injections in the past. Patient had steroids injected into the thoracic spine patient thinks between T6-T8. Patient complains of severe pain that wraps around her ribs. She denies weakness in extremities. She denies change in bowel or bladder function. Patient has been taking hydrocodone but not get much pain relief. Patient states that she checked her INR yesterday and it was 2.6 and today was 2.2. Patient did not discontinue her warfarin prior to the procedure. [facility] Medical History Anxiety Arthritis Bladder disease Cardiac murmur Depression DM2 (diabetes mellitus, type 2) Easy bruising Excessive bleeding Factor 5 Leiden mutation, heterozygous Fibromyalgia Former smoker Gastric reflux High cholesterol History of DVT (deep vein thrombosis) History of hiatal hernia History of irregular heartbeat History of stress test HLD (hyperlipidemia) Nodular goiter Post-menopausal Pulmonary embolism Wears dentures Wears glasses Wears hearing aid Home Medications vitamin E (dl, acetate) 180 mg (400 unit) capsule 400 units PO DAILY Supplement 10/13/13 [History Last Taken 08/02/20 08:00] warfarin 5 mg tablet 4.5 mg PO QODAY Blood Thinner 10/13/13 [History Last Taken 08/03/20 17:00] vitamin B complex 1 tab PO DAILY supplement 10/05/18 [History Last Taken 08/02/20 08:00] cholecalciferol (vitamin D3) 10 mcg (400 unit) capsule 10 mcg PO DAILY Supplement 07/08/19 [History Last Taken 08/02/20 08:00] mirtazapine 7.5 mg tablet 7.5 mg PO QHS Sleep 07/05/20 [History Last Taken 08/03/20 21:00] pantoprazole 40 mg tablet,delayed release 40 mg PO DAILY GERD 07/05/20 [History Last Taken 08/02/20 08:00] pregabalin 50 mg capsule (Lyrica) 50 mg PO BID Burning in left leg 07/05/20 [History Last Taken 08/03/20 21:00] hydrocodone-acetaminophen 5-325mg 5mg-325mg 1 tab PO Q8H PRN pain 3 days #9 tabs 09/25/20 [Rx Last Taken 10/05/20] oxycodone-acetaminophen 5 mg-325 mg tablet (Percocet) 1 tab PO Q6H PRN pain 3 days #12 tabs 11/30/20 [Rx Last Taken Unknown] ondansetron 4 mg disintegrating tablet 4 mg PO Q8H PRN nausea and vomiting #10 tabs 12/22/20 [Rx Last Taken Unknown] promethazine 25 mg rectal suppository (Promethegan) 25 mg RECTAL Q6H PRN PRN Nausea ##6 12/22/20 [Rx Last Taken Unknown] warfarin 4 mg tablet 4.5 mg PO QODAY 08/23/21 [History Last Taken Unknown] cephalexin 500 mg capsule 500 mg PO Q6 #20 CAPSULES 08/24/21 [Rx Last Taken Unknown] Allergy/AdvReac Type Severity Reaction Status Date / Time castor oil Allergy Unknown Verified 02/26/22 20:58 frovatriptan succinate Allergy Rash Verified 02/26/22 20:58 [From Frova] sumatriptan [From Imitrex] Allergy Rash Verified 02/26/22 20:58 sumatriptan succinate Allergy Rash Verified 02/26/22 20:58 [From Imitrex] vitamin E (d-alpha Allergy Chest Verified 02/26/22 20:58 tocopherol) tightness ezetimibe [From Zetia] AdvReac Severe Severe GI Verified 02/26/22 20:58 upset/stomach pain levofloxacin [From Levaquin] AdvReac Intermediate pain Verified 02/26/22 20:58 IVP DYE Allergy Vomiting Uncoded 02/26/22 20:58 Family History Father CAD (coronary artery disease) Myocardial infarction Mother Colon cancer Surgical History H/O: hysterectomy Hx of appendectomy Hx of kyphoplasty Social History Smoking Status: Former smoker alcohol intake: never seatbelt use: always do you feel safe at home: Yes additional social history: ROS ROS ED Review of Systems ROS Unobtainable: other Constitutional Constitutional ED: Reports lethargy; Denies chills, fever(s), sweats or weight loss Eyes Eyes: Denies blurry vision, change in vision or diplopia ENT ENT ED: Denies rhinorrhea or sore throat Cardiovascular Cardiovascular: Reports chest pain and racing heartbeat; Denies orthopnea Respiratory/Chest Respiratory/Chest: Denies cough, dyspnea, dyspnea on exertion, orthopnea or sputum Gastrointestinal Gastrointestinal: Denies abdominal pain, diarrhea, nausea or vomiting Genitourinary Genitourinary ED: Denies dysuria, hematuria or urinary frequency Musculoskeletal Musculoskeletal: Reports back pain; Denies arthralgias, myalgias or neck pain Integumentary Denies abscess, Abrasions or rash Neurologic Neurologic: Denies headache(s) or weakness Psychiatric Psychiatric: Denies anxiety, depression or suicidal thoughts Endocrine Endocrinology: Denies polydipsia, polyphagia or polyuria Hematologic/Lymphatic Hematologic/Lymphatic: Denies easy bleeding, easy bruising or lymphadenopathy Allergic/Immunologic Allergic/Immunologic ED: Denies mouth swelling, tongue swelling or urticaria EXAM Physical Exam Const Vital Signs: 02/26/22 20:55 02/27/22 00:19 02/27/22 01:50 Temperature 98.3 F Temperature Source Temporal Pulse Rate 74 88 82 Respiratory Rate 18 15 15 Blood Pressure 194/81 H 139/65 H 133/64 H Blood Pressure Mean 118 89 87 Pulse Ox 98 93 93 Oxygen Delivery Method Room Air Room Air Room Air Positive well nourished and well developed General Appearance ED: well developed and NAD HEENT Reports TM's clear and moist mucous membranes normocephalic and atraumatic; Negative for trauma or tenderness Tympanic Membrane ED: Yes TM's clear Eyes PERRL and EOMs intact bilaterally General Eye ED: Negative for pale conjunctiva or scleral icterus Neck no lymphadenopathy, supple and no JVD General: Negative for tenderness Chest Wall inspection of chest normal and palpation of chest normal Chest: Negative for tenderness Resp normal respiratory effort and clear to auscultation bilaterally Effort and Inspection: Negative for respiratory distress or pain with movement Auscultation: Negative for rhonchi, wheezes or diminished lung sounds Cardio regular rate, regular rhythm, S1 normal heart sound, S2 normal heart sound and no murmurs Peripheral Pulses: pulses 2+ throughout GI normal to inspection, nondistended, normoactive bowel sounds, soft to palpation, non-tender, non-distended and no masses Back/Spine no CVA tenderness and no thoracic nor lumbar tenderness Back/Spine Narrative: Unable to reproduce patient's pain with palpation of her back. There is no erythema or warmth to the skin noted. Negative straight leg raises. Deep tendon reflexes are plus 2 out of 4 bilaterally at the patella and Achilles. Patient has normal L5 extension bilaterally. Patient has normal sensation to light touch. Extremity normal to inspection General Extremety ED: Negative for edema General Extremity: Negative for edema Neuro oriented x3, CN's II-XII intact bilaterally, no sensory deficits noted and gait normal Sensorium / Orientation: awake, alert, oriented to person, oriented to place and oriented to time Motor Exam: strength 5/5 throughout and strength abnormal Psych mental status grossly normal Skin no rashes or lesions noted and no wounds MDM MDM MDM Narrative Medical decision making narrative: IV line established on arrival. Patient was medicated with Dilaudid and Zofran. Given her recent spinal injection and the fact that she is on Coumadin was concerned about an epidural hematoma therefore I ordered a stat emergent MRI of her thoracic spine. MRI was read by radiology as epidural hematoma from the area of T3-T8 with spinal cord compression. I discussed case with [facility] with Dr. Vidales who accepted transfer of patient to their ICU. Patient's INR was 2.0. I did order Kcentra for the patient. Patient currently hemodynamically and neurovascularly intact. Lab Data Attestation: I reviewed the patient's lab results. Labs: Laboratory Results - last 24 hr 02/26/22 02/26/22 02/26/22 22:50 22:50 22:50 WBC 11.1 H RBC 4.07 L Hgb 12.6 Hct 38.3 MCV 94.1 MCH 31.0 MCHC 32.9 RDW Std Deviation 50.9 H RDW Coeff of Mallika 14.7 H Plt Count 233 MPV 10.9 Immature Gran % (Auto) 0.400 Neut % (Auto) 71.3 H Lymph % (Auto) 20.7 [place] % (Auto) 7.0 Eos % (Auto) 0.4 Baso % (Auto) 0.2 Absolute Neuts (auto) 7.9 H Absolute Lymphs (auto) 2.30 Nucleated RBC % 0 PT 22.0 H INR 2.0 Sodium 137 Potassium 4.2 Chloride 105 Carbon Dioxide 28.0 Anion Gap 4 L BUN 13 Creatinine 0.69 Estim Creat Clear Calc 49.25 Est GFR (MDRD) Af Amer 106 Est GFR (MDRD) Non-Af 88 BUN/Creatinine Ratio 18.8 Glucose 121 H Calcium 8.9 Radiography Diagnostic Testing: Clinical Impression(s) from Imaging Studies Thoracic Spine MRI 02/27/22 00:01 IMPRESSION: Acute posterior epidural hematoma extending from T3 to T8 levels, causing high-grade spinal canal narrowing throughout these levels and compressing the thoracic spinal cord to the right and anteriorly. Mild edema within the compressed cord at the T6 and T7 levels. Urgent neurosurgical consult recommended. Electronically Signed: Jem Davis MD at 2:10 EST Reading Location ID and State: [address] [place] [address] Tel , Service support , Critical Care Time Critical care time (excluding procedures): 30-74 minutes, Including time spent:, Discussing w/Patient &/or Family/Retail Salesman, Discussing w/Consultants, Arranging Admission or Transfer, Performing Direct Patient Care at Bedside and - (30 minutes) Discharge Plan Triage Chief Complaint: Back ED Provider: Elsa Watson Dx/Rx/DC Orders Clinical Impression: Spinal epidural hematoma, History of diabetes mellitus, History of factor V Leiden mutation, History of pulmonary embolus (PE) Prescriptions: No Action cholecalciferol (vitamin D3) 10 mcg (400 unit) capsule 10 mcg PO DAILY mirtazapine 7.5 mg tablet 7.5 mg PO QHS pantoprazole 40 mg tablet,delayed release (DR/EC) 40 mg PO DAILY pregabalin [Lyrica] 50 mg capsule 50 mg PO BID warfarin 5 MG tablet 4.5 mg PO QODAY vitamin E (dl, acetate) 400 UNITS capsule 400 units PO DAILY vitamin B complex 1 EACH tablet 1 tab PO DAILY hydrocodone-acetaminophen 5-325 mg tablet 1 tab PO Q8H PRN (Reason: pain) 3 Days Qty: 9 0RF oxycodone-acetaminophen [Percocet] 5-325 mg tablet 1 tab PO Q6H PRN (Reason: pain) 3 Days Qty: 12 0RF promethazine [Promethegan] 25 MG suppository 25 mg RECTAL Q6H PRN PRN (Reason: Nausea) Qty: 6 0RF ondansetron 4 mg tablet,disintegrating 4 mg PO Q8H PRN (Reason: nausea and vomiting) Qty: 10 0RF warfarin 4 mg Tablet 4.5 mg PO QODAY cephalexin [cephalexin] 500 MG capsule 500 mg PO Q6 Qty: 20 0RF Primary Care Provider: Theo Watters Chi Referrals: Theo Watters Chi, MD [Primary Care Provider] - Disposition Disposition: DC/Tx to Another Type of HCF
[2022-02-26] MEDS: Ondansetron 4 MG/2 ML Vial IV (22:45)
[2022-02-26] MEDS: HYDROmorphone 1 MG/ML Syringe IV (22:48)
[2022-02-26] MEDS: 0.9% Normal Saline 1,000 ML 150 ML IV (22:50)
[2022-02-26 23:01] LABS: Absolute Neutrophil Count 7.9 X10^3/uL (2.0-7.7); Basophil# 0.02 X10^3/uL; Basophil% 0.2 % (0-1); Eosinophil# 0.04 X10^3/uL; Eosinophils% 0.4 % (0-5); Hematocrit 38.3 % (37-47); Hemoglobin 12.6 g/dL (12.0-15.0); Lymphocyte % 20.7 % (19-41); Mean Corp Hgb Conc 32.9 g/dL (32-36); Mean Corpuscular Volume 94.1 fL (81-99); Mean Platelet Vol. 10.9 fl (6.2-12.0); Monocyte# 0.78 X10^3/uL; NRBC Flagged by Analyzer 0 % (0-5); Neutrophil # 7.94 X10^3/uL (2.7-7.7); Neutrophil % 71.3 % (47-70); Platelet Count 233 K/mm3 (150-450); RBC Distribution Width CV 14.7 % (11.6-14.6); RBC Distribution Width SD 50.9 fl (35.1-43.9); Red Blood Count 4.07 M/mm3 (4.2-5.4); White Blood Count 11.1 K/mm3 (4.4-11.0)
[2022-02-26 23:13] LABS: Anion Gap 4 (5-15); BUN 13 mg/dL (7-18); BUN/Creat Ratio 18.8 RATIO (10-20); Calcium,Total 8.9 mg/dL (8.5-10.1); Chloride 105 mmol/L (98-107); Creatinine, Serum 0.69 mg/dL (0.55-1.02); EST Glomerular Filtration Rate 88 mL/min (>60); Est Glom Filt Rate - Afr Amer 106 mL/min (>60); Estimated Creatinine Clearance 49.25 ml/min; Glucose 121 mg/dL (74-106); Potassium 4.2 mmol/L (3.5-5.1); Sodium Level 137 mmol/L (136-145)
--- NOTE | 2022-02-27 00:01 | MRI_ITS ---
We are attempting to reach an attending provider to discuss findings. An addendum with communication details will be sent when the communication is complete. STUDY: MRI THORACIC SPINE WITH AND WITHOUT CONTRAST REASON FOR EXAM: Female, 76 years old. back pain on Coumadin, s/p spinal injection T6 - T8 area, multiple kyphoplastys TECHNIQUE: clariscan 14ml IV was administered for the contrast portion of the examination. COMPARISON: CT chest 11/30/2020. FINDINGS: Acute posterior epidural hematoma extends from the level of the T3 superior endplate to the level of the mid T8 vertebral body, 1.4 x 1.1 cm TRV X AP and approximately 13 cm craniocaudad. The thoracic spinal cord is compressed anteriorly and to the patient''s right by this hematoma, with complete effacement of CSF and concentric deformity of the cord. Mild edema within the cord at the T6 and T7 levels. Above and below these levels, there is no significant spinal canal narrowing. No abnormal enhancement. No acute fracture. Multilevel chronic compression fractures from T4 through L2 again demonstrated. Interval vertebroplasty at T7 new compared to the previous CT. Chronic T8-L1 vertebroplasties again demonstrated. No acute finding in the paraspinal soft tissues. Large hiatal hernia again demonstrated. MRI/Spine Thoracic W/WO Contrast IMPRESSION: Acute posterior epidural hematoma extending from T3 to T8 levels, causing high-grade spinal canal narrowing throughout these levels and compressing the thoracic spinal cord to the right and anteriorly. Mild edema within the compressed cord at the T6 and T7 levels. Urgent neurosurgical consult recommended. Electronically Signed: Jem Davis MD at 2:10 EST Reading Location ID and State: [facility] / [place] Tel , Service support ,
[2022-02-27] MEDS: HYDROmorphone 1 MG/ML Syringe IV ×2 (00:13→04:44)
[2022-02-27 00:19] VITALS: BP 139/65; PULSE 88; RESP 15; O2SAT 93
[2022-02-27 01:50] VITALS: BP 133/64; PULSE 82; RESP 15; O2SAT 93
[2022-02-27 02:37] VITALS: BP 128/76; PULSE 92; RESP 20; O2SAT 92
[2022-02-27] MEDS: LORazepam 2 MG/ML Syringe 0.5 MG IV (02:45)
[2022-02-27 03:42] VITALS: BP 128/76; PULSE 92; RESP 20; O2SAT 95
== END 2022-02-27 05:04 | disposition other institution (70) ==
PROVIDERS: Emergency Provider Emergency Medicine; PCP Family Medicine Geriatric Medicine; Visit Provider Emergency Medicine
DX: S06.4X0A Epidural hemorrhage without loss of consciousness, initial encounter (principal); G95.20 Unspecified cord compression; D68.51 Activated protein C resistance; E11.9 Type 2 diabetes mellitus without complications; E78.5 Hyperlipidemia, unspecified; Z87.891 Personal history of nicotine dependence; M54.9 Dorsalgia, unspecified; Z86.711 Personal history of pulmonary embolism; Z20.822 Contact with and (suspected) exposure to COVID-19; X58.XXXA Exposure to other specified factors, initial encounter
CPT/HCPCS: 51702; 72157; 80048; 85025; 85610; 87811; 96361; 96365; 96368; 96375; 96376; 99285; A9575; J7030; J7168; A4216; J2405; J3490

== ENCOUNTER → 2022-03-27 | Outpatient (CLI) | payer MEDICARE, BC, SELFPAY ==
[2022-03-27 17:01] LABS: Absolute Lymphocyte Count 3.05 X10^3/uL (0.83-4.51); Absolute Neutrophil Count 6.7 X10^3/uL (2.0-7.7); Basophil# 0.04 X10^3/uL; Basophil% 0.4 % (0-1); Eosinophil# 0.19 X10^3/uL; Eosinophils% 1.7 % (0-5); Hematocrit 43.8 % (37-47); Hemoglobin 14.4 g/dL (12.0-15.0); Lymphocyte # 3.05 X10^3/ul (0.83-4.51); Lymphocyte % 27.9 % (19-41); Mean Corp Hgb Conc 32.9 g/dL (32-36); Mean Corpuscular Hgb 31.6 pg (27.0-32.0); Mean Corpuscular Volume 96.3 fL (81-99); Mean Platelet Vol. 10.9 fl (6.2-12.0); Monocyte# 0.86 X10^3/uL; Monocyte% 7.9 % (0-10); NRBC Flagged by Analyzer 0 % (0-5); Neutrophil # 6.74 X10^3/uL (2.7-7.7); Neutrophil % 61.7 % (47-70); Platelet Count 293 K/mm3 (150-450); RBC Distribution Width CV 14.1 % (11.6-14.6); RBC Distribution Width SD 50.2 fl (35.1-43.9); Red Blood Count 4.55 M/mm3 (4.2-5.4); White Blood Count 10.9 K/mm3 (4.4-11.0)
[2022-03-27 17:15] LABS: Vitamin D,25 Hydroxy 49.8 ng/mL
[2022-03-27 17:25] LABS: AST(SGOT) 16 U/L (15-37); Alanine Aminotransfer ALT/SGPT 31 U/L (13-56); Albumin, Serum 3.8 g/dL (3.2-5.0); Alkaline Phosphatase 60 U/L (45-117); Anion Gap 8 (5-15); BUN 12 mg/dL (7-18); BUN/Creat Ratio 14.7 RATIO (10-20); Calcium,Total 9.3 mg/dL (8.5-10.1); Chloride 101 mmol/L (98-107); Creatinine, Serum 0.81 mg/dL (0.55-1.02); EST Glomerular Filtration Rate 72 mL/min (>60); Est Glom Filt Rate - Afr Amer 88 mL/min (>60); Globulin 3.7 g/dL (2.2-4.2); Glucose 97 mg/dL (74-106); Potassium 3.6 mmol/L (3.5-5.1); Protein, Total 7.5 g/dL (6.4-8.2); Sodium Level 138 mmol/L (136-145); Thyroid Stim Hormone (TSH) 1.29 uIU/mL (0.358-3.74)
== END | disposition home or self-care (01) ==
LOC: POLAB3 09:38
PROVIDERS: PCP Family Medicine Geriatric Medicine; Visit Provider Family Medicine Geriatric Medicine
DX: R53.83 Other fatigue (principal); E55.9 Vitamin D deficiency, unspecified
CPT/HCPCS: 36415; 80053; 82306; 84443; 85025

== ENCOUNTER → 2022-08-06 | Outpatient (CLI) | payer MEDICARE, BC, SELFPAY ==
[2022-08-06 13:37] LABS: Absolute Lymphocyte Count 2.94 X10^3/uL (0.83-4.51); Absolute Neutrophil Count 7.1 X10^3/uL (2.0-7.7); Basophil# 0.03 X10^3/uL; Basophil% 0.3 % (0-1); Eosinophil# 0.19 X10^3/uL; Eosinophils% 1.7 % (0-5); Hematocrit 42.7 % (37-47); Hemoglobin 14.5 g/dL (12.0-15.0); Lymphocyte # 2.94 X10^3/ul (0.83-4.51); Lymphocyte % 26.6 % (19-41); Mean Corpuscular Hgb 31.9 pg (27.0-32.0); Mean Corpuscular Volume 94.1 fL (81-99); Mean Platelet Vol. 11.2 fl (6.2-12.0); Monocyte# 0.74 X10^3/uL; Monocyte% 6.7 % (0-10); NRBC Flagged by Analyzer 0 % (0-5); Neutrophil # 7.14 X10^3/uL (2.7-7.7); Neutrophil % 64.4 % (47-70); Platelet Count 222 K/mm3 (150-450); RBC Distribution Width CV 13.2 % (11.6-14.6); RBC Distribution Width SD 45.9 fl (35.1-43.9); Red Blood Count 4.54 M/mm3 (4.2-5.4); White Blood Count 11.1 K/mm3 (4.4-11.0)
[2022-08-06 14:14] LABS: AST(SGOT) 27 U/L (15-37); Alanine Aminotransfer ALT/SGPT 32 U/L (13-56); Albumin, Serum 3.9 g/dL (3.2-5.0); Alkaline Phosphatase 52 U/L (45-117); Anion Gap 8 (5-15); BUN 13 mg/dL (7-18); BUN/Creat Ratio 16.2 RATIO (10-20); Chloride 103 mmol/L (98-107); EST Glomerular Filtration Rate 74 mL/min (>60); Est Glom Filt Rate - Afr Amer 89 mL/min (>60); Globulin 3.8 g/dL (2.2-4.2); Glucose 98 mg/dL (74-106); Potassium 4.1 mmol/L (3.5-5.1); Protein, Total 7.7 g/dL (6.4-8.2); Sodium Level 139 mmol/L (136-145); Thyroid Stim Hormone (TSH) 1.21 uIU/mL (0.358-3.74)
[2022-08-06 14:19] LABS: Vitamin D,25 Hydroxy 50.1 ng/mL
== END | disposition home or self-care (01) ==
LOC: POLAB3 13:10
PROVIDERS: PCP Family Medicine Geriatric Medicine; Visit Provider Family Medicine Geriatric Medicine
DX: R53.83 Other fatigue (principal); E55.9 Vitamin D deficiency, unspecified
CPT/HCPCS: 36415; 80053; 82306; 84443; 85025; 87086; 87088

== ENCOUNTER → 2022-09-25 | Outpatient (CLI) | payer MEDICARE, BC, SELFPAY ==
--- NOTE | 2022-09-25 13:10 | BI_ITS ---
MAMMOGRAPHY - BILATERAL SCREENING REASON FOR EXAM: Female, 77 years old. Routine annual screening examination. PERTINENT HISTORY: Sister with breast cancer. Six-month history of bilateral breast pain. TECHNIQUE: Digital bilateral breast trang (3D mammographic acquisition) in the CC and MLO projections. 2-D mediolateral oblique (MLO) and craniocaudad (CC) views of both breasts were obtained. CAD: Full Field Digital Mammography with Computer Added Detection was performed. COMPARISON: Comparison is made with prior study August 07, 2018 and January 16, 2016. FINDINGS: Breast Composition: The breasts are almost entirely fatty. There are no dominant masses or suspicious calcifications. Stable bilateral secretory calcifications. Stable fat-containing bilateral axillary lymph nodes. No other significant abnormalities are identified. There has been no significant change since the prior study. BI/SCRN MAMM (CAD)W/TRANG BILAT IMPRESSION: Stable bilateral screening mammogram. Yearly follow-up mammogram recommended. (A) ASSESSMENT CATEGORY: BIRADS Category 2: Benign. A letter regarding these results will be sent to the patient by the facility within 30 days. Approximately 10% of breast cancers are not detected by mammography. A normal mammogram should not delay biopsy of a clinically suspicious abnormality. [id number] Electronically Signed: Leonides Manriquez MD at 15:36 EDT ,
--- NOTE | 2022-09-25 13:18 | BD_ITS ---
STUDY: DUAL ENERGY X-RAY ABSORPTIOMETRY / DXA REASON FOR EXAM: Female, 77 years old. Osteoporosis TECHNIQUE: Bone Mineral Density (BMD) measurements of left forearm and bilateral hips were obtained. COMPARISON: Comparison is made with prior study dated January 06, 2013. FINDINGS: Left Femur Total: g/cm2 (0.483) / T-score (-3.8) / Z-score (-1.8) Left Femoral Neck: g/cm2 (0.336) / T-score (-4.6) / Z-score (-2.4) Right Femur Total: g/cm2 (0.521) / T-score (-3.4) / Z-score (-1.5) Right Femoral Neck: g/cm2 (0.385) / T-score (-4.2) / Z-score (-2.0) Left Forearm: g/cm2 (0.266) / T-score (-5.8) / Z-score (-3.0) The T-Scores on the most recent prior examination were: Left Femur Total: which represents an improvement of 1.8%. Right Femur Total: which represents a worsening of 2.1%. BD/Dexa Bone Density Study IMPRESSION: The patient is considered osteoporotic as outlined below according to World Mc Organization (WHO) criteria with a high fracture risk. There has been worsening of bone density since the previous examination. Reference Information: The T-score is the number of standard deviations above or below the standard which is normal for young adults at their peak bone mineral density. The World Health Organization (WHO) interprets the T-scores as follows: Above -1 Normal bone density Between -1 and -2.5 Osteopenia Equal to / or below -2.5 Osteoporosis As a practical clinical guideline, osteopenia may be graded as follows: Mild -1 through -1.5 Moderate -1.6 through -2.0 Severe -2.1 through -2.4 The Z-score is the number of standard deviations above or below age-matched controls. A Z-score of less than -1.5 would be considered abnormal. References: 1. NIH Osteoporosis and Related Bone Diseases www osteo.org 2. International Society for Clinical Densitometry www iscd.org 3. National Osteoporosis Foundation www nof.org Electronically Signed: Leonides Manriquez MD at 15:19 EDT ,
== END | disposition home or self-care (01) ==
LOC: OPBD 13:08
PROVIDERS: PCP Internal Medicine; Referring Provider Internal Medicine; Visit Provider Internal Medicine
DX: Z12.31 Encounter for screening mammogram for malignant neoplasm of breast (principal); N64.4 Mastodynia; Z80.3 Family history of malignant neoplasm of breast; M81.0 Age-related osteoporosis without current pathological fracture
CPT/HCPCS: 77063; 77067; 77080

== ENCOUNTER → 2023-02-23 | Outpatient (CLI) | payer MEDICARE, BC, SELFPAY ==
[2023-02-23 14:11] LABS: Amphetamine Urine VISTA NEGATIVE (<1000 ng/mL); Barbiturate Urine VISTA NEGATIVE (< 200 ng/mL); Benzodiazepine Urine VISTA NEGATIVE (< 200 ng/mL); Cocaine Urine VISTA NEGATIVE (< 300 ng/mL); Ecstacy Urine VISTA NEGATIVE (< 500 ng/mL); Methadone Urine VISTA NEGATIVE (< 300 ng/mL); PCP Urine VISTA NEGATIVE (< 25 ng/mL); THC Urine VISTA NEGATIVE (< 50 ng/mL); Vista UDS pH Range 7
== END | disposition home or self-care (01) ==
LOC: LAB 13:38
PROVIDERS: PCP Internal Medicine; Referring Provider Anesthesiology Pain Medicine; Visit Provider Anesthesiology Pain Medicine
DX: F11.20 Opioid dependence, uncomplicated (principal)
CPT/HCPCS: 80307

== ENCOUNTER → 2023-03-06 | Outpatient (CLI) | payer MEDICARE, BC, SELFPAY ==
--- NOTE | 2023-03-06 13:45 | RAD_ITS ---
EXAM: XR LEFT HIP WITH PELVIS WHEN PERFORMED, 2 OR 3 VIEWS CLINICAL INDICATION: Left Hip Pain TECHNIQUE: Two or three views of the left hip with pelvis when performed. COMPARISON: CT abdomen and pelvis, 08/24/2021 and hips/pelvis radiographs, 11/04/2016. FINDINGS: BONES/JOINTS: Mild acetabular hypertrophy and sclerosis bilaterally. Status post vertebral augmentation partially visualized at L4. SI joints appear symmetric. No widening of the pubic symphysis. Maintained joint spaces. No acute fracture or dislocation. SOFT TISSUES: No significant abnormality. No soft tissue swelling or gas. RAD/HIP, UNI W/ Pelvis 2-3 Views IMPRESSION: No acute fracture or dislocation. Electronically Signed: Vince Kraemr DO at 16:21 EST ,
[2023-03-06 14:54] LABS: Absolute Lymphocyte Count 3.27 X10^3/uL (0.83-4.51); Absolute Neutrophil Count 5.7 X10^3/uL (2.0-7.7); Basophil# 0.06 X10^3/uL; Basophil% 0.6 % (0-1); Eosinophil# 0.23 X10^3/uL; Eosinophils% 2.3 % (0-5); Hematocrit 44.9 % (37-47); Hemoglobin 14.6 g/dL (12.0-15.0); Lymphocyte # 3.27 X10^3/ul (0.83-4.51); Lymphocyte % 32.5 % (19-41); Mean Corp Hgb Conc 32.5 g/dL (32-36); Mean Corpuscular Volume 95.3 fL (81-99); Mean Platelet Vol. 11.2 fl (6.2-12.0); Monocyte# 0.74 X10^3/uL; Monocyte% 7.3 % (0-10); NRBC Flagged by Analyzer 0 % (0-5); Neutrophil # 5.72 X10^3/uL (2.7-7.7); Neutrophil % 56.8 % (47-70); Platelet Count 246 K/mm3 (150-450); RBC Distribution Width CV 12.8 % (11.6-14.6); RBC Distribution Width SD 45.1 fl (35.1-43.9); Red Blood Count 4.71 M/mm3 (4.2-5.4); White Blood Count 10.1 K/mm3 (4.4-11.0)
[2023-03-06 15:25] LABS: ALB/GLOB Ratio 0.9 RATIO (0.9-2.4); AST(SGOT) 19 U/L (15-37); Alanine Aminotransfer ALT/SGPT 30 U/L (13-56); Albumin, Serum 3.8 g/dL (3.2-5.0); Alkaline Phosphatase 67 U/L (45-117); Anion Gap 4 (5-15); BUN 11 mg/dL (7-18); BUN/Creat Ratio 13.8 RATIO (10-20); Calcium,Total 9.2 mg/dL (8.5-10.1); Chloride 103 mmol/L (98-107); EST Glomerular Filtration Rate 74 mL/min (>60); Est Glom Filt Rate - Afr Amer 90 mL/min (>60); Globulin 4.4 g/dL (2.2-4.2); Glucose 93 mg/dL (74-106); Potassium 4.3 mmol/L (3.5-5.1); Protein, Total 8.2 g/dL (6.4-8.2); Sodium Level 138 mmol/L (136-145)
[2023-03-06 15:35] LABS: Hemoglobin A1c 6.2 % (3.8-5.6)
[2023-03-06 16:02] LABS: Vitamin D,25 Hydroxy 50.8 ng/mL
== END | disposition home or self-care (01) ==
PROVIDERS: PCP Internal Medicine; Referring Provider Internal Medicine; Visit Provider Internal Medicine
DX: R73.03 Prediabetes (principal); E55.9 Vitamin D deficiency, unspecified; M81.0 Age-related osteoporosis without current pathological fracture; S81.802D Unspecified open wound, left lower leg, subsequent encounter; M25.552 Pain in left hip; X58.XXXD Exposure to other specified factors, subsequent encounter
CPT/HCPCS: 36415; 73502; 80053; 82306; 83036; 85025

== ENCOUNTER 2023-04-20 20:06 | Inpatient (IN) | payer MEDICARE, BC, SELFPAY ==
[2023-04-20] VITALS (31 sets, daily range): BP systolic 103–149; BP diastolic 57–88; PULSE 73–90; RESP 10–26; TEMP 36.8–37.5; O2SAT 87–98; BMI 31.1
--- NOTE | 2023-04-20 21:00 | EX.ED.DYSGE1 ---
HPI <JOSE Rivas - Last Filed: 04/20/23 21:31> History of Present Illness Chief Complaint: Cold Sx Narrative Narrative: Patient is a 77-year-old female with history of pulmonary embolus on Eliquis, obesity, chronic back pain, GERD who presents to the emergency department for 3 weeks of generalized illness. Patient did test positive for COVID-19 2 weeks ago. Patient has been sick for a total of 21 days. Per the family, the patient is not getting over it, she is more weak, not eating and drinking normally. Patient is usually up and active all day however has been laying in bed. The patient was not answering her phone the last 2 days, she was checked on by a friend and was in the bedroom sleeping. They are concerned and is here for evaluation. She continues to have fever and chills. PFSH <JOSE Rivas - Last Filed: 04/20/23 21:31> [facility] Medical History (Updated 04/20/23 @ 23:[address] Mariella Harris, ) Anemia Anxiety Arthritis Bladder disease Bone fracture Cardiac murmur Chronic bronchitis COVID-19 Depression DM2 (diabetes mellitus, type 2) Easy bruising Excessive bleeding Factor 5 Leiden mutation, heterozygous Fibromyalgia Flu vaccine need Former smoker Gastric reflux GERD (gastroesophageal reflux disease) Health care maintenance High cholesterol History of back problems History of DVT (deep vein thrombosis) History of hiatal hernia History of irregular heartbeat History of stress test HLD (hyperlipidemia) Left hip pain Migraine Nodular goiter Post-menopausal Pulmonary embolism Seasonal allergies Seborrheic dermatitis URI (upper respiratory infection) Wears dentures Wears glasses Wears hearing aid Home Medications vitamin E (dl, acetate) 180 mg (400 unit) capsule 400 units PO DAILY Supplement 10/13/13 [History Last Taken 08/02/20 08:00] vitamin B complex 1 tab PO DAILY supplement 10/05/18 [History Last Taken 08/02/20 08:00] pantoprazole 40 mg tablet,delayed release 40 mg PO DAILY GERD 07/05/20 [History Last Taken 08/02/20 08:00] apixaban 5 mg tablet (Eliquis) 5 mg PO BID #180 tabs 09/05/22 [Rx Last Taken Unknown] calcium gluconate 650 mg tablet 650 mg PO DAILY 09/05/22 [History Last Taken Unknown] cholecalciferol (vitamin D3) 10 mcg (400 unit) capsule 2,000 unit PO TID Supplement 09/05/22 [History Last Taken Unknown] ferrous sulfate-vitamin C 39 mg-75 mg tablet 1 tab PO DAILY 09/05/22 [History Last Taken Unknown] furosemide 40 mg tablet 40 mg PO DAILY 09/05/22 [History Last Taken Unknown] hydrocodone-acetaminophen 5-325mg 5mg-325mg 0.5 tab PO BID PRN pain 09/05/22 [History Last Taken Unknown] mirtazapine 7.5 mg tablet 7.5 mg PO QHS Sleep #90 tabs 09/05/22 [Rx Last Taken Unknown] potassium chloride 20 mEq tablet,extended release 20 meq PO DAILY 09/05/22 [History Last Taken Unknown] promethazine 25 mg tablet 25 mg PO BID PRN nausea and vomiting #90 tabs 09/05/22 [Rx Last Taken Unknown] ketoconazole 2 % shampoo 1 applic topical 2XW #120 mL 03/06/23 [Rx Last Taken Unknown] denosumab 60 mg/mL subcutaneous syringe (Prolia) 60 mg subcut N8ARWDDC #1 mL 03/20/23 [Rx Last Taken Unknown] pregabalin 50 mg capsule (Lyrica) 50 mg PO Q8H Burning in left leg 03/20/23 [History Last Taken Unknown] benzonatate 200 mg capsule 200 mg PO TID PRN cough #20 caps 04/07/23 [Rx Last Taken Unknown] fluticasone propionate 50 mcg/actuation nasal spray,suspension (Flonase Allergy Relief) 2 spray intranasal DAILY #16 grams 04/16/23 [Rx Last Taken Unknown] guaifenesin 600 mg tablet, extended release 12 hr (Mucinex) 600 mg PO BID #60 tabs 04/16/23 [Rx Last Taken Unknown] albuterol sulfate 2 puff inhalation PRN shortness of breath or wheezing 04/20/23 [History Last Taken Unknown] pantoprazole 40 mg granules delayed-release for susp in packet (Protonix) 40 mg PO DAILY 04/20/23 [History Last Taken Unknown] zoledronic acid 5 mg/100 mL in mannitol 5 %-water intravenous piggybck (Reclast) ea IV .QYEAR 04/20/23 [History Last Taken Unknown] Allergy/AdvReac Type Severity Reaction Status Date / Time castor oil Allergy Unknown Verified 04/20/23 20:24 frovatriptan succinate Allergy Rash Verified 04/16/23 13:49 [From Frova] Iodinated Contrast Media Allergy Vomiting Verified 04/20/23 20:24 sumatriptan [From Imitrex] Allergy Rash Verified 04/20/23 20:24 sumatriptan succinate Allergy Rash Verified 04/20/23 20:24 [From Imitrex] vitamin E (d-alpha Allergy Chest Verified 04/20/23 20:24 tocopherol) tightness ezetimibe [From Zetia] AdvReac Severe Severe GI Verified 04/20/23 20:24 upset/stomach pain levofloxacin [From Levaquin] AdvReac Intermediate pain Verified 04/20/23 20:24 Family History Father CAD (coronary artery disease) Myocardial infarction Bleeding disorder History of blood clots CVA (cerebral vascular accident) Mother Colon cancer Diabetes High cholesterol Cancer Skin Sister Psychiatric care High cholesterol Diabetes Colon cancer Brother Colon cancer High cholesterol Surgical History H/O: hysterectomy Hx of appendectomy Hx of kyphoplasty Social History Smoking Status: Former smoker alcohol intake: never substance use type: does not use what type of physical activity do you participate in: none seatbelt use: always do you feel safe at home: Yes additional social history: ROS <JOSE Rivas - Last Filed: 04/20/23 21:31> ROS ED ROS Narrative Constitutional: Negative for weight loss, weakness. Positive for fever and chills Eyes: Negative for vision loss, vision change, double vision ENT: Negative for any sore throat, ear pain, congestion Cardiovascular: Negative for any chest pain, tightness, palpitations Respiratory: Negative for any sputum production, hemoptysis, dyspnea, dyspnea on exertion, orthopnea. Positive for cough Gastrointestinal: Negative for any abdominal pain,vomiting, diarrhea, constipation, blood in stool, blood in vomit. Positive for nausea : Negative for any urinary frequency, dysuria, retention, blood in urine Muscle skeletal: Negative for any arthralgias, neck pain, back pain. Positive for myalgias Neurological: Negative for any syncope, paresthesias, dizziness. Positive for headache Skin: Negative for any rashes, lumps, itching, abrasions, lacerations Psychiatric: Negative for any depression, anxiety, stress, suicidal ideation, homicidal ideation Hematologic: Negative for any easy bruising, excessive bruising, easy bleeding Allergies: Negative for any eczema, hives, rash EXAM <JOSE Rivas - Last Filed: 04/20/23 21:31> Physical Exam Narrative Exam Narrative: Vital signs reviewed. Patient does appear to not feel well. Upon physical examination, patient does appear dry HEET: Head normocephalic atraumatic, TMs clear bilaterally. Posterior pharynx is clear, dry mucous membranes. Nares clear bilaterally. Neck: Supple with no lymphadenopathy or tenderness. No signs of meningismus. Cardiac: Regular rate and rhythm systolic murmur, no gallops or rubs, equal peripheral pulses bilaterally. Respiratory: Patient had slight crackles to the mid to lower left lobe.. No chest tenderness. Abdomen: Soft, nontender, nondistended. No abdominal bruit or pulsatile masses. No hepatosplenomegaly Extremities: No peripheral edema, no signs of gross trauma or deformity. Active full range of motion of all extremities. Neuro: Cranial nerves II through XII intact, no focal neurological deficits. Skin: Clean dry and intact with no rash, purpura, petechiae, vesicles or pustules. Backs/flank: No CVA tenderness, no midline spinal tenderness, no deformity. Psych: Normal mood and affect. No SI, HI or acute psychosis. Const Vital Signs: 04/20/23 20:17 04/20/23 20:37 04/20/23 21:21 Temperature 99.5 F H 98.2 F Temperature Source Oral Oral Pulse Rate 86 90 Respiratory Rate 18 25 H Respiratory Effort Short of Breath Respiratory Pattern Normal Blood Pressure 144/75 H 103/61 Blood Pressure Mean 98 75 Pulse Ox 94 98 Oxygen Delivery Method Room Air Nasal Cannula Oxygen Flow Rate (L/min) 2 04/20/23 20:41 04/20/23 22:00 04/20/23 20:37 Temperature 98.6 F Temperature Source Oral Pulse Rate 85 87 Respiratory Rate 22 H 20 H Respiratory Effort Respiratory Pattern Blood Pressure 123/88 H Blood Pressure Mean 99 Pulse Ox 96 94 Oxygen Delivery Method Room Air Nasal Cannula Oxygen Flow Rate (L/min) 2 04/20/23 20:40 04/20/23 20:45 04/20/23 20:50 Temperature Temperature Source Pulse Rate 83 84 80 Respiratory Rate 20 H 19 H 23 H Respiratory Effort Respiratory Pattern Blood Pressure 131/70 H Blood Pressure Mean 79 Pulse Ox 94 92 93 Oxygen Delivery Method Oxygen Flow Rate (L/min) 04/20/23 21:00 04/20/23 21:10 04/20/23 21:15 Temperature Temperature Source Pulse Rate 83 Respiratory Rate 17 Respiratory Effort Respiratory Pattern Blood Pressure 149/60 H 103/61 Blood Pressure Mean 86 69 Pulse Ox 90 Oxygen Delivery Method Oxygen Flow Rate (L/min) 04/20/23 21:20 04/20/23 21:30 04/20/23 21:40 Temperature Temperature Source Pulse Rate 84 86 84 Respiratory Rate 21 H 21 H 26 H Respiratory Effort Respiratory Pattern Blood Pressure 135/67 H Blood Pressure Mean 83 Pulse Ox 88 87 97 Oxygen Delivery Method Room Air Nasal Cannula Oxygen Flow Rate (L/min) 2 04/20/23 21:45 04/20/23 21:45 04/20/23 21:57 Temperature Temperature Source Pulse Rate 82 88 Respiratory Rate 26 H 21 H Respiratory Effort Respiratory Pattern Blood Pressure 135/57 H 135/57 H Blood Pressure Mean 79 79 Pulse Ox 97 96 Oxygen Delivery Method Nasal Cannula Oxygen Flow Rate (L/min) 2 04/20/23 22:00 04/20/23 22:11 04/20/23 22:15 Temperature Temperature Source Pulse Rate 85 89 85 Respiratory Rate 22 H 10 L 25 H Respiratory Effort Respiratory Pattern Blood Pressure 123/58 H 125/61 H Blood Pressure Mean 74 81 Pulse Ox 96 96 96 Oxygen Delivery Method Nasal Cannula Oxygen Flow Rate (L/min) 2 04/20/23 23:00 04/20/23 22:20 04/20/23 22:30 Temperature 98.3 F Temperature Source Oral Pulse Rate 83 87 86 Respiratory Rate 24 H 25 H 17 Respiratory Effort Respiratory Pattern Blood Pressure 119/58 L 125/63 H Blood Pressure Mean 78 82 Pulse Ox 96 96 97 Oxygen Delivery Method Room Air Oxygen Flow Rate (L/min) 2 04/20/23 22:40 04/20/23 22:45 04/20/23 22:50 Temperature Temperature Source Pulse Rate 83 77 Respiratory Rate 22 H 24 H Respiratory Effort Respiratory Pattern Blood Pressure 124/63 H Blood Pressure Mean 73 Pulse Ox 96 96 Oxygen Delivery Method Oxygen Flow Rate (L/min) 04/20/23 23:00 04/20/23 23:10 04/20/23 23:15 Temperature Temperature Source Pulse Rate 83 77 74 Respiratory Rate 24 H 23 H 25 H Respiratory Effort Respiratory Pattern Blood Pressure 119/58 L 122/60 H Blood Pressure Mean 76 79 Pulse Ox 96 96 96 Oxygen Delivery Method Nasal Cannula Oxygen Flow Rate (L/min) 2 04/20/23 23:20 04/20/23 23:30 04/20/23 23:38 Temperature Temperature Source Pulse Rate 77 79 Respiratory Rate 24 H 18 Respiratory Effort Respiratory Pattern Blood Pressure 118/60 Blood Pressure Mean 78 Pulse Ox 96 96 Oxygen Delivery Method Oxygen Flow Rate (L/min) 04/20/23 23:40 04/20/23 23:45 04/20/23 23:50 Temperature Temperature Source Pulse Rate 80 73 78 Respiratory Rate 22 H 25 H 23 H Respiratory Effort Respiratory Pattern Blood Pressure 130/57 H Blood Pressure Mean 75 Pulse Ox 96 95 96 Oxygen Delivery Method Oxygen Flow Rate (L/min) Positive well nourished <Dr. Aleksandr Anderson, DO - Last Filed: 04/21/23 00:29> Physical Exam Const Vital Signs: 04/20/23 20:17 04/20/23 20:37 04/20/23 21:21 Temperature 99.5 F H 98.2 F Temperature Source Oral Oral Pulse Rate 86 90 Respiratory Rate 18 25 H Respiratory Effort Short of Breath Respiratory Pattern Normal Blood Pressure 144/75 H 103/61 Blood Pressure Mean 98 75 Pulse Ox 94 98 Oxygen Delivery Method Room Air Nasal Cannula Oxygen Flow Rate (L/min) 2 04/20/23 20:41 04/20/23 22:00 04/20/23 20:37 Temperature 98.6 F Temperature Source Oral Pulse Rate 85 87 Respiratory Rate 22 H 20 H Respiratory Effort Respiratory Pattern Blood Pressure 123/88 H Blood Pressure Mean 99 Pulse Ox 96 94 Oxygen Delivery Method Room Air Nasal Cannula Oxygen Flow Rate (L/min) 2 04/20/23 20:40 04/20/23 20:45 04/20/23 20:50 Temperature Temperature Source Pulse Rate 83 84 80 Respiratory Rate 20 H 19 H 23 H Respiratory Effort Respiratory Pattern Blood Pressure 131/70 H Blood Pressure Mean 79 Pulse Ox 94 92 93 Oxygen Delivery Method Oxygen Flow Rate (L/min) 04/20/23 21:00 04/20/23 21:10 04/20/23 21:15 Temperature Temperature Source Pulse Rate 83 Respiratory Rate 17 Respiratory Effort Respiratory Pattern Blood Pressure 149/60 H 103/61 Blood Pressure Mean 86 69 Pulse Ox 90 Oxygen Delivery Method Oxygen Flow Rate (L/min) 04/20/23 21:20 04/20/23 21:30 04/20/23 21:40 Temperature Temperature Source Pulse Rate 84 86 84 Respiratory Rate 21 H 21 H 26 H Respiratory Effort Respiratory Pattern Blood Pressure 135/67 H Blood Pressure Mean 83 Pulse Ox 88 87 97 Oxygen Delivery Method Room Air Nasal Cannula Oxygen Flow Rate (L/min) 2 04/20/23 21:45 04/20/23 21:45 04/20/23 21:57 Temperature Temperature Source Pulse Rate 82 88 Respiratory Rate 26 H 21 H Respiratory Effort Respiratory Pattern Blood Pressure 135/57 H 135/57 H Blood Pressure Mean 79 79 Pulse Ox 97 96 Oxygen Delivery Method Nasal Cannula Oxygen Flow Rate (L/min) 2 04/20/23 22:00 04/20/23 22:11 04/20/23 22:15 Temperature Temperature Source Pulse Rate 85 89 85 Respiratory Rate 22 H 10 L 25 H Respiratory Effort Respiratory Pattern Blood Pressure 123/58 H 125/61 H Blood Pressure Mean 74 81 Pulse Ox 96 96 96 Oxygen Delivery Method Nasal Cannula Oxygen Flow Rate (L/min) 2 04/20/23 23:00 04/20/23 22:20 04/20/23 22:30 Temperature 98.3 F Temperature Source Oral Pulse Rate 83 87 86 Respiratory Rate 24 H 25 H 17 Respiratory Effort Respiratory Pattern Blood Pressure 119/58 L 125/63 H Blood Pressure Mean 78 82 Pulse Ox 96 96 97 Oxygen Delivery Method Room Air Oxygen Flow Rate (L/min) 2 04/20/23 22:40 04/20/23 22:45 04/20/23 22:50 Temperature Temperature Source Pulse Rate 83 77 Respiratory Rate 22 H 24 H Respiratory Effort Respiratory Pattern Blood Pressure 124/63 H Blood Pressure Mean 73 Pulse Ox 96 96 Oxygen Delivery Method Oxygen Flow Rate (L/min) 04/20/23 23:00 04/20/23 23:10 04/20/23 23:15 Temperature Temperature Source Pulse Rate 83 77 74 Respiratory Rate 24 H 23 H 25 H Respiratory Effort Respiratory Pattern Blood Pressure 119/58 L 122/60 H Blood Pressure Mean 76 79 Pulse Ox 96 96 96 Oxygen Delivery Method Nasal Cannula Oxygen Flow Rate (L/min) 2 04/20/23 23:20 04/20/23 23:30 04/20/23 23:38 Temperature Temperature Source Pulse Rate 77 79 Respiratory Rate 24 H 18 Respiratory Effort Respiratory Pattern Blood Pressure 118/60 Blood Pressure Mean 78 Pulse Ox 96 96 Oxygen Delivery Method Oxygen Flow Rate (L/min) 04/20/23 23:40 04/20/23 23:45 04/20/23 23:50 Temperature Temperature Source Pulse Rate 80 73 78 Respiratory Rate 22 H 25 H 23 H Respiratory Effort Respiratory Pattern Blood Pressure 130/57 H Blood Pressure Mean 75 Pulse Ox 96 95 96 Oxygen Delivery Method Oxygen Flow Rate (L/min) [facility] <JOSE Rivas - Last Filed: 04/20/23 21:31> [facility] Lab Data Labs: Laboratory Results - last 24 hr 04/20/23 04/20/23 19:37 22:14 WBC 12.9 H RBC 3.95 L Hgb 12.5 Hct 37.5 MCV 94.9 MCH 31.6 MCHC 33.3 RDW Std Deviation 44.1 H RDW Coeff of Mallika 12.6 Plt Count 243 MPV 10.8 Immature Gran % (Auto) 0.400 Neut % (Auto) 76.5 H Lymph % (Auto) 16.0 L [place] % (Auto) 6.9 Eos % (Auto) 0.1 Baso % (Auto) 0.1 Absolute Neuts (auto) 9.9 H Absolute Lymphs (auto) 2.07 Nucleated RBC % 0 Sodium 134 L Potassium 3.8 Chloride 102 Carbon Dioxide 25.0 Anion Gap 7 BUN 11 Creatinine 0.71 Estim Creat Clear Calc 49.68 Est GFR (MDRD) Af Amer 103 Est GFR (MDRD) Non-Af 85 BUN/Creatinine Ratio 15.6 Glucose 99 Calcium 8.8 Troponin I High Sens 8 Urine Color Yellow Urine Clarity Clear Urine pH 7.0 Ur Specific [place] 1.010 Urine Protein 15 H Urine Glucose (UA) Normal Urine Ketones 15 H Urine Occult Blood 25 H Urine Nitrite Negative Urine Bilirubin Negative Urine Urobilinogen Normal Ur Leukocyte Esterase Negative Urine RBC 0 SEEN Urine WBC 0 SEEN Ur Squamous Epith Cells 0 SEEN Urine Bacteria 0 SEEN Urine Mucus 0 SEEN Radiography Diagnostic Testing: Clinical Impression(s) from Imaging Studies Chest X-Ray 04/20/23 21:20 IMPRESSION: No acute cardiopulmonary disease. Electronically Signed: Michele Casper MD at 22:26 EST , Brain CT 04/20/23 21:30 IMPRESSION: Negative head/brain CT without intravenous contrast. AIDOC was utilized to assist in identifying pertinent positive findings. Electronically Signed: Michele Casper MD at 22:46 EST , Treatment and Re-Evaluation :: Patient appears to be unwell appearing, vital signs do appear stable, patient is not hypoxic. Presenting to the emergency department with complaints of ongoing fever, chills, cough. Patient's continues to have fever and chills and has been sick for greater than 3 weeks. Differential diagnose includes community-acquired pneumonia, UTI, dehydration, electrolyte abnormality, ACS or OR. Patient will receive laboratory values, including a troponin. Patient will receive a two-view chest x-ray looking for any pneumonia. Patient will be given 1 L of normal saline while Zofran and Tylenol. Patient currently does have chills. Patient will receive a respiratory panel. All radiologic examinations were read, reviewed by the emergency department attending. From these reads, a plan of care will be put in place. <Dr. Aleksandr Anderson, DO - Last Filed: 04/21/23 00:29> [facility] History & Record Review Discussion w/independent historian: Patient and Family Lab Data Attestation: I reviewed the patient's lab results. Labs: Laboratory Results - last 24 hr 04/20/23 04/20/23 19:37 22:14 WBC 12.9 H RBC 3.95 L Hgb 12.5 Hct 37.5 MCV 94.9 MCH 31.6 MCHC 33.3 RDW Std Deviation 44.1 H RDW Coeff of Mallika 12.6 Plt Count 243 MPV 10.8 Immature Gran % (Auto) 0.400 Neut % (Auto) 76.5 H Lymph % (Auto) 16.0 L [place] % (Auto) 6.9 Eos % (Auto) 0.1 Baso % (Auto) 0.1 Absolute Neuts (auto) 9.9 H Absolute Lymphs (auto) 2.07 Nucleated RBC % 0 Sodium 134 L Potassium 3.8 Chloride 102 Carbon Dioxide 25.0 Anion Gap 7 BUN 11 Creatinine 0.71 Estim Creat Clear Calc 49.68 Est GFR (MDRD) Af Amer 103 Est GFR (MDRD) Non-Af 85 BUN/Creatinine Ratio 15.6 Glucose 99 Calcium 8.8 Troponin I High Sens 8 Urine Color Yellow Urine Clarity Clear Urine pH 7.0 Ur Specific [place] 1.010 Urine Protein 15 H Urine Glucose (UA) Normal Urine Ketones 15 H Urine Occult Blood 25 H Urine Nitrite Negative Urine Bilirubin Negative Urine Urobilinogen Normal Ur Leukocyte Esterase Negative Urine RBC 0 SEEN Urine WBC 0 SEEN Ur Squamous Epith Cells 0 SEEN Urine Bacteria 0 SEEN Urine Mucus 0 SEEN Radiography Diagnostic Testing: Clinical Impression(s) from Imaging Studies Chest X-Ray 04/20/23 21:20 IMPRESSION: No acute cardiopulmonary disease. Electronically Signed: Michele Casper MD at 22:26 EST , Brain CT 04/20/23 21:30 IMPRESSION: Negative head/brain CT without intravenous contrast. AIDOC was utilized to assist in identifying pertinent positive findings. Electronically Signed: Michele Casper MD at 22:46 EST , Treatment and Re-Evaluation :: Patient appears to be unwell appearing, vital signs do appear stable, patient is not hypoxic. Presenting to the emergency department with complaints of ongoing fever, chills, cough. Patient's continues to have fever and chills and has been sick for greater than 3 weeks. Differential diagnose includes community-acquired pneumonia, UTI, dehydration, electrolyte abnormality, ACS or OR. Patient will receive laboratory values, including a troponin. Patient will receive a two-view chest x-ray looking for any pneumonia. Patient will be given 1 L of normal saline while Zofran and Tylenol. Patient currently does have chills. Patient will receive a respiratory panel. All radiologic examinations were read, reviewed by the emergency department attending. From these reads, a plan of care will be put in place. I have personally performed a face to face assessment of the patient and have reviewed the SAMANTHA Note. I performed a substantive portion of the visit including all aspects of the following. My andrade findings include: History is 77-year-old female contracted COVID towards the middle of March along with most of her family members. She continues to have a lingering cough and has been experiencing some nausea. Does report that she took some Phenergan and Tylenol like she had some slurred speech and that that Tylenol did not agree with her . Family states that the past couple days she has been in bed and today did not really get out of bed due to weakness. Patient notes that she is feeling very shaky and sweaty before arrival. Patient is on apixaban for factor V and history of DVT. Exam is patient appears to have rigors she is diaphoretic. She appears very frail. This is in contrast to the family's description of a very active independent female. Lung sounds are basically clear. She appears to have dry mucous membranes. Medical Decison Making not seen an obvious source for the patient's infection. I sent a viral panel off. She did start to have some hypoxia is not requiring some nasal cannula. My initial impression of the chest x-ray is no acute process. Final CT of the chest read is not back. But I do not see an obvious infiltrate. She does have a slightly elevated white count and left shift. We obtained blood cultures lactic acid. In speaking with the hospitalist made shared decision making and administered Rocephin azithromycin. Plan and will be admission. Discharge Plan Triage Chief Complaint: Cold Sx ED Midlevel Provider: Jose E Castro ED Provider: Aleksandr Anderson Dx/Rx/DC Orders Primary Care Provider: Corky Mensah
[2023-04-20] MEDS: Acetaminophen 500 MG Tablet 1000 MG PO (21:02)
[2023-04-20] MEDS: 0.9% Normal Saline (1000mL) 1,000 ML 1000 ML IV (21:06)
[2023-04-20] MEDS: Ondansetron 4 MG/2 ML Vial IV (21:06)
--- OUTSIDE RECORDS SUMMARY | 2023-04-20 21:15 | XMS RPT_ITS | CCD ---
Author Name Unknown Address [address] [place] [address] Organization [facility] Care Team Providers Care Inside Plant Supervisor Name Role Phone Stacie Madera Unavailable Unavailable Cecil HELMS, Bianca Gibson Unavailable [phone] SUZANNE BOB Unavailable Unavailable SYSTEM, PROVIDER NOT IN Unavailable Unavaila ble DeFinis, Harumi Y Unavailable Unavailable DeFinis, Harumi Y Unavailable Unavailable KRAIG YING Admitting Unavailable KRAIG YING Referring Unavailable KEN PATTEN Attending Unavailable Allergies Allergy Classification Reported Allergen(s) Allergy Type Date of Onset Reaction(s) Facility (5 sources) castor oil; Translations: [CASTOR OIL] drug allergy 09-03-2015 [facility] Work Phone: (4 sources) frovatriptan drug allergy 09-03-2015 [facility] Work Phone: (5 sources) iodine; Translations: [IODINE] drug allergy 03-04-2011 [facility] Work Phone: (4 sources) SUMAtriptan drug allergy 09-03-2015 Rash [facility] Work Phone: (4 sources) VIT E SOLUTION drug allergy 09-03-2015 [facility] Work Phone: (1 source) frovatriptan; Translations: [FROVATRIPTAN] Drug Allergy 02-12-2017 [facility] Repository (1 source) SUMAtriptan; Translations: [SUMATRIPTAN SUCCINATE] Drug Allergy 02-12-2017 [facility] Repository (1 source) vitamin E; Translations: [VITAMIN E (BULK)] Drug Allergy 02-12-2017 [facility] Repository Medications Completed/Discontinued Medications Medication Drug Class(es) Dates Sig (Normalized) Sig (Original) acetaminophen / HYDROcodone (12 sources) Opioid Agonist Start: 01-26-2013 HYDROCODONE-ACETAMI NOPHEN 5-500 MG TABS as needed HYDROCODONE-ACETAMI NOPHEN [id number] Jose E Soria MD Problems Active Problems Problem Classification Problem Date Documented Da te Episodic/Chronic Cardiac dysrhythmias (8 sources) Bradycardia; Translations: [Sinus bradycardia] Onset: 03-04-2011 09-03-2015 Chronic Coagulation and hemorrhagic disorders (2 sources) Activated protein C resistance; 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)] Onset: 02-27-2022 Chronic Disorders of lipid metabolism (4 sources) Hyperlipidemia; Translations: [Hyperlipidemia, unspecified] Onset: 03-04-2011 03-04-2011 Chronic Phlebitis; thrombophlebitis and thromboembolism (6 sources) Deep venous thrombosis; Translations: [Personal history of other venous thrombosis and embolism] Onset: 09-01-2011 09-01-2011 Episodic Unclassified (1 source) Dysuria / [id number]() Onset: 02-12-2017 Unclassified (1 source) Knee Pain / [id number]() Onset: 02-12-2017 Unclassified (1 source) Unknown / UNK(Unknown) Onset: 02-12-2017 Unclassified (1 source) Epidural hemorrhage with loss of consciousness status unknown, initial encounter; Translations: [Epidural hemorrhage with loss of consciousness status unknown, initial encounter] Onset: 02-27-2022 Past or Other Problems Problem Classification Problem Date Documented Date Episodic/Chronic Genitourinary symptoms and ill-defined conditions (1 source) Hematuria, unspecified; Translations: [Hematuria, unspecified] Onset: 02-12-2017 Episodic Heart valve disorders (4 sources) Heart murmur; Translations: [Cardiac murmur, unspecified] Onset: 03-04-2011 03-04-2011 Episodic Nonspecific chest pain (4 sources) Chest pain, unspecified; Translations: [Chest pain, unspecified] Onset: 03-04-2011 03-04-2011 Episodic Other inflammatory condition of skin (4 sources) Lichenification and lichen simplex chronicus; Translations: [Lichen simplex chronicus] 05-02-2011 Episodic Other non-traumatic joint disorders (1 source) Pain in right knee; Translations: [Pain in right knee] Onset: 02-12-2017 Episodic Other nutritional; endocrine; and metabolic disorders (8 sources) Body mass index (BMI) 25.0-25.9, adult; Translations: [Body mass index (BMI) 26.0-26.9, adult] Onset: 02-09-2014 Resolved: 09-01-2016 09-01-2016 Episodic Other nutritional; endocrine; and metabolic disorders (2 sources) Body mass index (BMI) 26.0-26.9, adult; Translations: [Body mass index (BMI) 26.0-26.9, adult] Onset: 09-01-2016 09-01-2016 Episodic Other skin disorders (4 sources) Senile hyperkeratosis; Translations: [Inflamed seborrheic keratosis] Onset: 05-02-2011 05-02-2011 Episodic Pulmonary heart disease (4 sources) Pulmonary embolism; Translations: [Other pulmonary embolism without acute cor pulmonale] Onset: 09-01-2011 09-01-2011 Episodic Unclassified (1 source) Epidural hemorrhage with loss of consciousness status unknown, initial encounter; Translations: [Epidural hemorrhage with loss of consciousness status unknown, initial encounter] Onset: 02-27-2022 Urinary tract infections (1 source) Urinary tract infection, site not specified; Translations: [Urinary tract infection, site not specified] Onset: 02-12-2017 Episodic Results Test Name Value Interpretation Reference Range Facil ity Vital Signs Date Time Vital Sign Value Performing Clinician Mónica abrams 09-01-2016 10:18-0400 BMI (Body Mass Index) 26.95 kg/m2 [facility] Work Phone: 09-01-2016 10:18-0400 BP Diastolic 80 mm[Hg] [facility] Work Phone: 09-01-2016 10:18-0400 BP Systolic 140 mm[Hg] [facility] Work Phone: 09-01-2016 10:18-0400 Height 156.21 cm [facility] Work Phone: 09-01-2016 10:18-0400 Pulse (Heart Rate) 64 /min [facility] Work Phone: 09-01-2016 10:18-0400 Respiratory Rate 16 /min [facility] Work Phone: 09-01-2016 10:18-0400 Weight 65.77 kg Stacie [facility] Work Phone: 09-03-2015 10:54-0400 BMI (Body Mass Index) 25.28 kg/m2 [facility] Work Phone: 09-03-2015 10:54-0400 BP Diastolic 64 mm[Hg] Bianca Jacob RN [facility] Work Phone: 09-03-2015 10:54-0400 BP Systolic 136 mm[Hg] Bianca Jacob RN [facility] Work Phone: 09-03-2015 10:54-0400 BSA (Body Surface Area) 1.61 m2 Bianca Jacob RN [facility] Work Phone: 09-03-2015 10:54-0400 Pulse (Heart Rate) 60 /min [facility] Work Phone: 09-03-2015 10:54-0400 Respiratory Rate 16 /min [facility] Work Phone: 09-03-2015 10:54-0400 Weight 61.69 kg [facility] Work Phone: 02-09-2014 15:00-0500 Heart rate 68 /min Flyjes Mu [facility] Work Phone: 05-29-2011 12:06-0500 Body Temperature 97.6 [degF] [facility] Work Phone: 03-05-2011 16:11-0500 Height 156.21 cm [facility] Work Phone: Encounters Encounter Date Encounter Type Care Provider Facility Start: 02-27-2022 End: 03-05-2022 Evaluation and management of inpatient KRAIG [facility] Start: 02-12-2017 End: 02-12-2017 Emergency department patient visit SUZANNE Muñoz [facility] Procedures Date Procedure Procedure Detail Performing Clinician Start: 09-01-2016 End: 09-01-2016 Follow Up Appt 1 year Jose E Aaron Start: 09-01-2016 End: 09-01-2016 PFM Jose E Soria MD Start: 09-03-2015 End: 09-03-2015 Dietary management education, guidance, and counseling Evin Dobbins Start: 09-03-2015 End: 09-03-2015 Follow Up Appt 1 year Jose E Aaron Start: 09-03-2015 End: 09-03-2015 PFM Jose E Soria MD Start: 02-09-2014 End: 02-09-2014 Follow Up Appt 1 year Jose E Aaron Start: 02-09-2014 End: 02-09-2014 PFM Jose E Soria MD Start: 01-26-2013 End: 01-26-2013 Follow Up Appt 1 year Jose E Aaron Start: 01-26-2013 End: 01-26-2013 Follow Up Appt Other Jose E Soria MD Start: 01-26-2013 End: 01-26-2013 PFM Jose E Soria MD Start: 03-05-2012 End: 03-05-2012 Follow Up Appt 1 year Jose E Aaron Start: 09-01-2011 End: 09-01-2011 Follow Up Appt 6 months Jose E Soria MD Start: 03-05-2011 End: 03-05-2011 Follow Up Appt 6 months Jose E Soria MD Start: 03-05-2011 End: 03-05-2012 Gastroenterology Referral Jose E cash MD Plan of Treatment Date Care Activity Detail Author Start: 08-31-2017 End: 08-31-2017 Appointment Appointment [facility] Work Phone: Start: 09-01-2016 End: 09-01-2016 Appointment Appointment [facility] Work Phone: Start: 09-01-2016 End: 09-01-2016 Follow Up Appt 1 year Follow Up Appt 1 year [facility] Work Phone: Start: 09-01-2016 End: 09-01-2016 PFM [facility] Work Phone: Start: 09-03-2015 End: 09-03-2015 Follow Up Appt 1 year Follow Up Appt 1 year [facility] Work Phone: Start: 09-03-2015 End: 09-03-2015 PFM [facility] Work Phone: Start: 02-09-2014 End: 02-09-2014 Follow Up Appt 1 year Follow Up Appt 1 year [facility] Work Phone: Start: 02-09-2014 End: 02-09-2014 Follow Up Appt Other Follow Up Appt Other [facility] Work Phone: Start: 02-09-2014 End: 02-09-2014 PFM PFM [facility] Work Phone: Start: 01-26-2013 End: 01-26-2013 Follow Up Appt 1 year Follow Up Appt 1 year [facility] Work Phone: Start: 01-26-2013 End: 01-26-2013 Follow Up Appt Other Follow Up Appt Other [facility] Work Phone: Start: 01-26-2013 End: 01-26-2013 PFM PFM [facility] Work Phone: Start: 03-05-2012 End: 03-05-2012 Follow Up Appt 1 year Follow Up Appt 1 year [facility] Work Phone: Start: 09-01-2011 End: 09-01-2011 Follow Up Appt 6 months Follow Up Appt 6 months [facility] Work Phone: Start: 03-05-2011 End: 03-05-2011 Follow Up Appt 6 months Follow Up Appt 6 months [facility] Work Phone: Start: 03-05-2011 End: 03-06-2011 Gastroenterology Referral Gastroenterology Referral James Heredia, [facility], [address] [place], [address] [facility] Work Phone: Payers Date Payer Category Payer [facility] [id number] 2009 Medicare [id number] Discharge summary note 03-05-2022 Note Date & Type Note Facility 03-05-2022 Note Hospitalist Discharg e Summary Nneka Montgomery : 1945 Admit date: 02/27/2022 Discharge date: 03/05/2022 Admitting Physician: Kraig Ying MD Primary Care Physician: No primary care provider on file. Code Status: Full Code DISCHARGE DIAGNOSIS: Epidural hematoma Thoracic epidural hematoma T3-T8 Factor V Leiden mutation on coumadin Chronic back pain /spine injection 02/25 GERD anemia There is no height or weight on file to calculate BMI. Past Medical History: Diagnosis Date Anemia Factor V Leiden (CMS/HCC) (HCC) Fibromyalgia Gastritis GERD (gastroesophageal reflux disease) Hiatal hernia Migraines Osteoporosis Rectocele Hospital Course: See discharge diagnoses list above and medication adjustments below in med rec.The patient is discharged in improved and stable condition. Patient was initially admitted to ICU. Followed by orthopedics. Closely monitored neurologic sign. Recommending hold NSAIDs and chemical DVT ppx. Hold coumadin. Follow up with PCP ortho and hematology for further instruction on anticoagulation. Patient pain controlled. Medically remains stable after transferred to medical floor. Patient 's daughter and patient verbalized understanding of above. Discharge Instructions: Diet: Dietary Orders (From admission, onward) Start Ordered 02/27/22 1144 Adult diet Regular Diet effective now Question: Diet type Answer: Regular 02/27/22 1144 Activity: as tolerated Disposition: Patient discharged in stable condition to Home. Greater than 30 minutes spent discharging the patient and coming up with patient discharge plan. Vitals: BP (!) 168/73 (BP Location: Right arm, Patient Position: Sitting) Pulse 68 Temp 36.6 ?C (97.9 ?F) (Temporal) Resp 18 Wt 148 lb 5.9 oz (67.3 kg) SpO2 98% Pulse Ox: SpO2 Av.7 % Min: 94 % Max: 98 % Supplemental O2: O2 Flow Rate (L/min): 2 L/min General appearance: No apparent distress, appears stated age and cooperative with exam. HEENT: Eyes: No scleral icterus Oral: Tongue is semi-moist Cardiovascular: S1/S2 heard, RRR Respiratory: Clear to auscultation bilaterally Abdomen: Soft, non-tender, non-distended bowel sounds positive Musculoskeletal: No obvious deformities seen Skin: No visible rashes or lesions. Discharge Medications: Your medication list START taking these medications Instructions Last Dose Given Next Dose Due oxyCODONE 5 MG immediate release tablet Commonly known as: Roxicodone Take 1 tablet (5 mg) by mouth every 6 hours as needed for severe pain (7-10) or moderate pain (4-6) for up to 5 days. polyethylene glycol (PEG) 3350 17 g packet Commonly known as: Miralax Start taking on: March 06, 2022 Take 17 g by mouth daily. Do not start before March 06, 2022. sennosides 8.6 MG tablet Commonly known as: Senokot Take 2 tablets (17.2 mg) by mouth daily. CONTINUE taking these medications Instructions Last Dose Given Next Dose Due albuterol 0.63 MG/3ML nebulizer solution alpha tocopherol 400 units capsule Commonly known as: Vitamin E ascorbic acid 500 MG tablet Commonly known as: Vitamin C b complex vitamins capsule furosemide 40 MG tablet Commonly known as: Lasix mirtazapine 30 MG tablet Commonly known as: Remeron multivitamin with minerals 18-400 mg-mcg tablet tablet pantoprazole 40 MG EC tablet Commonly known as: ProtoNix potassium chloride CR 20 MEQ ER tablet Commonly known as: Klor-Con M20 pregabalin 50 MG capsule Commonly known as: Lyrica STOP taking these medications HYDROcodone-acetaminophen 5-325 MG tablet Commonly known as: [place] warfarin 1 MG tablet Commonly known as: Coumadin Where to Get Your Medications You can get these medications from any pharmacy Bring a paper prescription for each of these medications oxyCODONE 5 MG immediate release tablet polyethylene glycol (PEG) 3350 17 g packet sennosides 8.6 MG tablet Recommended Follow-up: No follow-up provider specified. Complexity of Follow up: [] Moderate Complexity: follow up within 7-14 calendar days (92235) [x] Severe Complexity: follow up within 7 calendar days (73681) Follow up Testing, Pending results or Referrals at Transitional Care Visit: [x] yes [] no Instructions to MA: Please call patient on day after discharge (must document patient contacted within 2 business days of discharge). Follow up questions for MA: 1. Did you get medications filled and taking them as instructed from discharge? 2. Are you following your discharge instructions from your hospital stay? 3. Please confirm patient is scheduled for a follow up appointment within the above time frame. Signed: Ken Patten MD Division of Hospitalist Medicine Inpatient Medical Services/[facility] 03/05/2022 [facility] Clinical Note 03-04-2022 Note Date & Type Note Facility 03-04-2022 Note Hospitalist Progress Note 03/04/2022 Subjective: Admit Date: 02/27/2022 PCP: No primary care provider on file. Room#: [facility] A Interval History: No overnight issues. Up in chair. Denies numbness tingling. Chronic urinary incontinent. Denies chest pain, sob, abdominal pain, nausea, vomiting, diarrhea, constipation, fevers, or chills. Adult diet Regular 3 Day Weight Change: Unable to Calculate 24HR INTAKE/OUTPUT: No intake or output data in the 24 hours ending 03/04/22 0951 Past Medical History: Past Medical History: Diagnosis Date Anemia Factor V Leiden (CMS/HCC) (HCC) Fibromyalgia Gastritis GERD (gastroesophageal reflux disease) Hiatal hernia Migraines Osteoporosis Rectocele LABS: CBC: Recent Labs 03/02/22 0102 WBC 8.0 RBC 3.65* HGB 11.6* HCT 34.3* MCV 94.2 RDW 15.2* PLT 200 BMP: Recent Labs 03/02/22101 NA 134* K 4.6 CL 101 CO2 32* BUN 20* CREATININE 0.73 GLUCOSE 100 CALCIUM 8.8 ANIONGAP 1* LIVER PROFILE:No results for input(s): AST, ALT, BILITOT, ALKPHOS, PROT in the last 72 hours. No lab exists for component: LABALBU PT/INR: Recent Labs 03/02/22101 PROTIME 10.2 INR 1.0 CARDIAC ENZYMES: No results for input(s): TROPONINI in the last 72 hours. Procalcitonin: No results found for: PROCAL COVID-19 PCR: No results for input(s): COVID19 in the last 72 hours. Objective: Vitals: BP 109/74 (BP Location: Right arm, Patient Position: Sitting) Pulse 74 Temp 36.8 ?C (98.2 ?F) (Temporal) Resp 16 Wt 148 lb 5.9 oz (67.3 kg) SpO2 92% Pulse Ox: SpO2 Av.5 % Min: 92 % Max: 95 % Supplemental O2: O2 Flow Rate (L/min): 2 L/min General appearance: No apparent distress, appears stated age and cooperative with exam. HEENT: Eyes: No scleral icterus Oral: Tongue is semi-moist Cardiovascular: S1/S2 heard, RRR Respiratory: Clear to auscultation bilaterally Abdomen: Soft, non-tender, non-distended bowel sounds positive Musculoskeletal: No obvious deformities seen Skin: No visible rashes or lesions. Medications: Current Facility-Administered Medications: acetaminophen (Tylenol) tablet 1,000 mg, 1,000 mg, Oral, TID, Bianca Clark DO, 1,000 mg at 03/04/22 08 cholecalciferol (Vitamin D-3) tablet 50 mcg, 2,000 Units, Oral, Daily, Bianca Clark DO, 50 mcg at 03/04/22841 furosemide (Lasix) tablet 40 mg, 40 mg, Oral, Daily, Bianca Clark DO, 40 mg at 03/04/22841 Influenza Vac A&B SA Adj quadrivalent (Fluad) vaccine 0.5 mL, 0.5 mL, IntraMUSCular, Prior to discharge, Bianca Clark DO mirtazapine (Remeron) tablet 37.5 mg, 37.5 mg, Oral, Nightly, MELANY Yu CNP, 37.5 mg at 03/03/222047 ondansetron ODT (Zofran-ODT) disintegrating tablet 4 mg, 4 mg, Oral, q8h PRN OR ondansetron (Zofran) injection 4 mg, 4 mg, IntraVENous, q6h PRN, Bianca Clark DO, 4 mg at 02/28/22 0843 oxyCODONE (Roxicodone) immediate release tablet 5 mg, 5 mg, Oral, q6h PRN, Bianca Clark DO, 5 mg at 03/03/22 183 pantoprazole (ProtoNix) EC tablet 40 mg, 40 mg, Oral, Nightly, Bianca Clark DO, 40 mg at 03/03/222047 polyethylene glycol (PEG) 3350 (Miralax) packet 17 g, 17 g, Oral, Daily, MELANY Yu CNP, 17 g at 03/03/22 144 potassium chloride CR (Klor-Con M10) ER tablet 40 mEq, 40 mEq, Oral, Daily, Bianca Clark DO, 40 mEq at 03/04/22 0842 pregabalin (Lyrica) capsule 50 mg, 50 mg, Oral, TID, Bianca Clark DO, 50 mg at 03/04/22 0842 sennosides (Senokot) tablet 17.2 mg, 2 tablet, Oral, BID, MELANY Yu CNP, 17.2 mg at 03/04/22 0842 simethicone (Mylicon) drops 40 mg, 40 mg, Oral, PRN, Bianca Clark DO sodium chloride 0.9 % infusion, 5-250 mL/hr, IntraVENous, PRN, Bianca Clark DO Assessment Thoracic epidural hematoma T3-T8 Factor V Leiden mutation on coumadin Chronic back pain /spine injection 02/25 GERD anemia Plan Neuro check Hold NSAIDs and chemical DVT ppx per ortho Hold coumadin Pain control PT OT Discussed with daughter, answered all questions Close monitor for s/s of VTE and neuro check -am labs, replace lytes prn -increase activity -DVT prophylaxis: [] Lovenox hold [] Heparin [] SCDs [x] Encourage ambulation [] Already on Anticoagulation Advance Directive: Full Code Discharge planning: AMARILYS Patten MD Division of Hospitalist Medicine Inpatient Medical Services/[facility] Clinical Note 02-27-2022 Note Date & Type Note Facility 02-27-2022 Note Attestation signed by Kristin Saenz at 02/28/2022 12:51 PM ATTENDING ADDENDUM I independently saw the above patient and reviewed the recent events, imaging, labs, vital signs; I performed a physical exam and ROS. My findings agree with the above note except for any details corrected below. Patient Active Problem List Diagnosis Epidural hematoma A complete review of systems was obtained and is negative except as stated in HPI. ASSESSMENT: 76F with history of Factor V Leiden mutation on Coumadin, and chronic back pain related to chronic thoracic vertebral ccompression fractures, requiring routine spinal injections. Most recent spinal injection on 02/25 complicated by epidural hematoma (patient was not instructed to hold her Coumadin and therefore didn't), for which patient was transferred to [facility] ICU. PLAN: 1. Neuro/Spine: 13cm spinal epidural hematoma --> no motor or sensory deficits, trial of non-op management - chronic pain: receives spinal injections for chronic pain --> PO tylenol PRN - cont home remeron, continue home pregabalin (for fibromyalgia) 2. CV: HDS - on home lasix for pedal edema --> hold for now - no history of cardiac disease, will obtain EKG for baseline here 3. Pulm: no acute issues, on room air 4. GI: regular diet 5. Renal: normal renal function, allen placed at [place] --> discontinue allen 6. Hem: Factor V Leiden on coumadin, history of remote DVT/PE - received Kcentra at [facility] --> INR 2 -> 1.1 - will obtain Duplex US BLE here to assess for acute VTE (anticipate AC being held for at least several days) 7. Endo: no h/o DM, glucose wnl -> daily BMP 8. ID: mild leukocytosis (WBC 11), likely reactive in setting of acute hematoma, no indications for Abx 9. Lines: PIVs 10. Proph: hold chemoppx, SCDs only, continue home protonix 11. MSK: PT/OT 12. Dispo: Trauma ICU for Q1-Q2 neurovascular checks Critical Care time spent 35 min. The time involved in the performance of this care was exclusive of separately billable procedures, teaching time and treating other patients. The time was spent personally by the attending physician for the following activities: examination of the patient, ordering and/or performing treatment, reviewing the laboratory and radiographic studies, and if applicable, ventilator management and blood gas interpretation. Critical Care was necessary because of an illness or injury that actively impaired one or more vital organ systems such that there was a high probability of imminent life treatening deterioration in the patient's condition. The following organ systems are involved: Neurologic Kristin Saenz MD Division of Trauma Department of Surgery [facility] Pager: [phone] Kristin Saenz MD Division of Trauma Department of Surgery [facility] Pager: [phone] [facility] H&P 02/27/2022 6:12 AM Attending: Dr. Ying Level of Initial Activation: Direct Admit Upgraded: No To:N/A Mechanism of Arrival:Transfer from [place] ED Chief Complaint: back pain History of Traumatic Injury: 76 year old female with history of factor V Leiden, hx of DVT and PE on coumadin presents as an emergent transfer from [place] [facility] ED to [facility] ICU for 13 cm epidural hematoma from T3-T8 with anterior compression, following pain management injection on 02/25/22 for chronic back pain. Stated that she started having severe pain of her right back around the injection site that progressed down to her waist after the procedure. MRI thoracic spine showed an acute posterior epidural hematoma extending from T3 to T8 measuring ~13 cm causing compression of the thoracic spinal cord anteriorly and to the patient's right. INR 2.0, PCC, K Centra 1500 units given in ED. Denies numbness to bilateral lower extremities, bowel or bladder incontinence. COVID-19 Risk Screening Tool: Has patient previously been tested for COVID-19? No Is the patient coming from a nursing facility or congregate care facility? No Has the patient been in close contact with a COVID-19 positive patient? No Has the patient recently experienced any of the following: fever, cough, [id number], myalgias, loss of taste/smell, diarreha/GI symptoms? No If any of the screen questions are answered 'yes,' consider ordering a COVID test PMH-T2DM, Factor V Leiden, history of DVT and PE on coumadin, HLD, hiatal hernia, multilevel chronic compression fx T4-L2, osteoporosis Past surgical history-History of hysterectomy, appendectomy, kyphoplasty, vertebroplasties T7-L1 Social History Socioeconomic History Marital status: Spouse name: Not on file Number of children: Not on file Years of education: Not on file Highest education level: No (more content not included)... [facility] Summary Purpose Family History No Family History Records FoundNo Family History Records Found Advance Directives No Advanced Directives Records FoundNo Advanced Directives Records Found Additional Source Comments INFORMATION SOURCE (unrecogn ized section and content) DATE CREATED AUTHOR AUTHOR'S FELICITA ATION 03/12/2022 [facility] FOR RECORDS PERTAINING TO PATIENTS WHO ARE OR HAVE BEEN ENROLLED IN A CHEMICAL DEPENDENCY/SUBSTANCEABUSE PROGRAM, SOME INFORMATION MAY BE OMITTED. This clinical summary was aggregated from multiple sources. Caution should be exercised in using it in the provision of clinical care. This summary normalizes information from multiple sources, and as a consequence, information in this document may materially change the coding, format and clinical context of patient data. In addition, data may be omitted in some cases. CLINICAL DECISIONS SHOULD BE BASED ON THE PRIMARY CLINICAL RECORDS. [facility]. provides no warranty or guarantee of the accuracy or completeness of information in this document.
[2023-04-20 21:16] LABS: Absolute Lymphocyte Count 2.07 X10^3/uL (0.83-4.51); Absolute Neutrophil Count 9.9 X10^3/uL (2.0-7.7); Basophil# 0.01 X10^3/uL; Basophil% 0.1 % (0-1); Eosinophil# 0.01 X10^3/uL; Eosinophils% 0.1 % (0-5); Hematocrit 37.5 % (37-47); Hemoglobin 12.5 g/dL (12.0-15.0); Lymphocyte # 2.07 X10^3/ul (0.83-4.51); Mean Corp Hgb Conc 33.3 g/dL (32-36); Mean Corpuscular Hgb 31.6 pg (27.0-32.0); Mean Corpuscular Volume 94.9 fL (81-99); Mean Platelet Vol. 10.8 fl (6.2-12.0); Monocyte# 0.89 X10^3/uL; Monocyte% 6.9 % (0-10); NRBC Flagged by Analyzer 0 % (0-5); Neutrophil # 9.88 X10^3/uL (2.7-7.7); Neutrophil % 76.5 % (47-70); Platelet Count 243 K/mm3 (150-450); RBC Distribution Width CV 12.6 % (11.6-14.6); RBC Distribution Width SD 44.1 fl (35.1-43.9); Red Blood Count 3.95 M/mm3 (4.2-5.4); White Blood Count 12.9 K/mm3 (4.4-11.0)
--- NOTE | 2023-04-20 21:20 | RAD_ITS ---
EXAM: XR CHEST, 2 VIEWS CLINICAL INDICATION: cough TECHNIQUE: Frontal and lateral views of the chest. COMPARISON: November 30, 2020 CT chest FINDINGS: LUNGS AND PLEURAL SPACES: Bibasilar subsegmental atelectasis and/or pleural parenchymal scarring. No consolidation. No pleural effusion or pneumothorax. HEART: Enlarged cardiac silhouette concerning for cardiomegaly and/or pericardial effusion. MEDIASTINUM: Central airways and mediastinal contour are unremarkable. BONES/JOINTS: Diffuse osteopenia. Multiple compression fractures which are chronic in appearance with multilevel vertebroplasty changes involving the thoracolumbar spine. SOFT TISSUES: Unremarkable. VASCULATURE: Atherosclerotic calcifications of the ectatic thoracic aortic arch. Atherosclerotic calcifications of the thoracoabdominal aorta. RAD/Chest PA and Lateral IMPRESSION: No acute cardiopulmonary disease. Electronically Signed: Michele Casper MD at 22:26 EST ,
--- NOTE | 2023-04-20 21:30 | CT_ITS ---
EXAM: CT HEAD WITHOUT INTRAVENOUS CONTRAST CLINICAL INDICATION: altered mental status TECHNIQUE: Multiple axial images were obtained of the head without intravenous contrast. CTDIvol = ( 44.99 ) mGy, DLP = ( 779.24 ) mGycm This CT exam was performed using one or more of the following dose reduction techniques: automated exposure control, adjustment of the mA and/or kV according to patient size, and/or use of iterative reconstruction technique. COMPARISON: No relevant prior studies available. FINDINGS: BRAIN AND EXTRA-AXIAL SPACES: Chronic ischemic small vessel white matter disease. No intra- or extra-axial hemorrhage. No evidence of acute infarct. No intracranial mass or mass effect. There is preservation of the mccoy/white matter interface. Posterior fossa structures are unremarkable. Ventricles are appropriate for age. No hydrocephalus. Basal cisterns are patent. BONES/JOINTS: Unremarkable. No discrete lytic or blastic abnormalities. SINUSES: Mild scattered paranasal sinus mucosal thickening. Air-fluid level level involving the right sphenoid sinus. MASTOID AIR CELLS: Unremarkable. Clear. ORBITS: Visualized globes, extraocular muscles, optic nerves and retrobulbar fat appear unremarkable. CT/Brain/Head without Contrast IMPRESSION: Negative head/brain CT without intravenous contrast. AIDOC was utilized to assist in identifying pertinent positive findings. Electronically Signed: Michele Casper MD at 22:46 EST ,
[2023-04-20 21:35] LABS: Anion Gap 7 (5-15); BUN 11 mg/dL (7-18); BUN/Creat Ratio 15.6 RATIO (10-20); Calcium,Total 8.8 mg/dL (8.5-10.1); Chloride 102 mmol/L (98-107); Creatinine, Serum 0.71 mg/dL (0.55-1.02); EST Glomerular Filtration Rate 85 mL/min (>60); Est Glom Filt Rate - Afr Amer 103 mL/min (>60); Estimated Creatinine Clearance 49.68 ml/min; Glucose 99 mg/dL (74-106); Potassium 3.8 mmol/L (3.5-5.1); Sodium Level 134 mmol/L (136-145); Troponin-I HS 8 pg/mL (3.0-54.0)
[2023-04-20 22:23] LABS: Bacteria 0 SEEN /hpf (None Seen); Mucous, Urine 0 SEEN /hpf (<or=2+); Red Blood Cells-Urine 0 SEEN /hpf (0-5); Squamous Epithelial Cells - UA 0 SEEN /hpf (5-10); White Blood Cells 0 SEEN /hpf (0-5)
[2023-04-20 22:38] LABS: Color, Urine Yellow (Yellow); Glucose, Dipstick Normal (Normal); Ketone-Dipstick 15 mg/dl (Negative); Leukocyte Esterase-Dipstick Negative /ul (Negative); Nitrite-Dipstick Negative (Negative); Occult Blood-Urine 25 /ul (Negative); Protein-Dipstick 15 mg/dl (Negative); Urine Bilirubin Dipstick Negative (Negative); Urine Clarity Clear (Clear); Urine Urobilinogen Normal (Normal)
--- NOTE | 2023-04-20 23:18 | PCM.HP.STD ---
HPI - General General Date of Admission: 04/21/23 Date of Service: 04/21/23 Chief Complaint: Fatigue/generalized weakness HPI Narrative CARL MONTGOMERY, is a 77 F who presented to the emergency department at [facility] on 04/20/2023 with a chief complaint of generalized weakness/debility. The patient was diagnosed with COVID-19 infection on 04/07/2023 and was treated with Decadron and Tessalon Perles along with supportive measures by an urgent care. She was not treated with Paxlovid at that time. She was reevaluated by her primary care physician on 04/16/2023 at which time her main concern was ongoing nasal congestion and fatigue along with generalized weakness and feeling unwell. She had no recorded fevers or tachycardia and denied shortness of breath at that time. She had nausea previously but that had been reported to be improving. Post COVID fatigue was considered to be the most likely issue and she was given Flonase and Mucinex and instructed to call if she got worse or develops any new symptoms. Upon presentation today she is complaining of ongoing nasal congestion, headache, fatigue, generalized weakness, and decreased oral intake. She states that she has no real sense of smell or taste and this is affecting her appetite considerably. She has ongoing cough with sputum production of clear sputum. She is having chills at home but has not yet documented a fever however her temperature was 99.5 on arrival here and per discussion with the emergency department physician she was diaphoretic and felt warm. Evidently the patient is very active and up. However, she has been lying in bed only all day and had not been answering her phone for the last 2 days. Family friend checked on her and she was found to be sleeping in the bedroom. Given their concerns of the above she was brought to the emergency department for further evaluation. Vital signs on presentation showed a temperature of 99.5, heart rate was 86, blood pressure was 144/75, respiratory rate has been between 18 and 25 and oxygen saturations were initially 94% on room air however she has desatted to 87 on room air and was placed on 2 L nasal cannula. Since being placed on oxygen her sats have been between 96 to 98%. Her CBC shows a mild leukocytosis with a white count of 12.9 and a left shift with a 76.5% neutrophilia. She has mild hyponatremia with a sodium of 134. Her BUN and creatinine are normal. Troponin was normal at 8. UA is not consistent with infection. Lactic acid was pending on admission. Chest x-ray demonstrated no acute cardiopulmonary processes. EKG showed a right bundle branch block with no interval abnormalities and no ST-T wave changes concerning for acute ischemia. CT of the brain was unremarkable. CT of the chest showed no significant pneumonia but did show a small to moderate pericardial effusion, large hiatal hernia and other chronic findings. She did appear to have bronchiectasis upon my review and some scattered patchy infiltrates. Respiratory viral panel was pending at the time of admission and blood cultures were ordered and pending as well. She was started on ceftriaxone and azithromycin without another source being identified and request for admission was made. [facility] Medical History Anemia Anxiety Arthritis Bladder disease Bone fracture Cardiac murmur Chronic bronchitis COVID-19 Depression DM2 (diabetes mellitus, type 2) Easy bruising Excessive bleeding Factor 5 Leiden mutation, heterozygous Fibromyalgia Flu vaccine need Former smoker Gastric reflux GERD (gastroesophageal reflux disease) Health care maintenance High cholesterol History of back problems History of DVT (deep vein thrombosis) History of hiatal hernia History of irregular heartbeat History of stress test HLD (hyperlipidemia) Left hip pain Migraine Nodular goiter Post-menopausal Pulmonary embolism Seasonal allergies Seborrheic dermatitis URI (upper respiratory infection) Wears dentures Wears glasses Wears hearing aid Home Medications vitamin E (dl, acetate) 180 mg (400 unit) capsule 400 units PO DAILY Supplement 10/13/13 [History Last Taken 08/02/20 08:00] vitamin B complex 1 tab PO DAILY supplement 10/05/18 [History Last Taken 08/02/20 08:00] pantoprazole 40 mg tablet,delayed release 40 mg PO DAILY GERD 07/05/20 [History Last Taken 08/02/20 08:00] apixaban 5 mg tablet (Eliquis) 5 mg PO BID #180 tabs 09/05/22 [Rx Last Taken Unknown] calcium gluconate 650 mg tablet 650 mg PO DAILY 09/05/22 [History Last Taken Unknown] cholecalciferol (vitamin D3) 10 mcg (400 unit) capsule 2,000 unit PO TID Supplement 09/05/22 [History Last Taken Unknown] ferrous sulfate-vitamin C 39 mg-75 mg tablet 1 tab PO DAILY 09/05/22 [History Last Taken Unknown] furosemide 40 mg tablet 40 mg PO DAILY 09/05/22 [History Last Taken Unknown] hydrocodone-acetaminophen 5-325mg 5mg-325mg 0.5 tab PO BID PRN pain 09/05/22 [History Last Taken Unknown] mirtazapine 7.5 mg tablet 7.5 mg PO QHS Sleep #90 tabs 09/05/22 [Rx Last Taken Unknown] potassium chloride 20 mEq tablet,extended release 20 meq PO DAILY 09/05/22 [History Last Taken Unknown] promethazine 25 mg tablet 25 mg PO BID PRN nausea and vomiting #90 tabs 09/05/22 [Rx Last Taken Unknown] ketoconazole 2 % shampoo 1 applic topical 2XW #120 mL 03/06/23 [Rx Last Taken Unknown] denosumab 60 mg/mL subcutaneous syringe (Prolia) 60 mg subcut [id number] #1 mL 03/20/23 [Rx Last Taken Unknown] pregabalin 50 mg capsule (Lyrica) 50 mg PO Q8H Burning in left leg 03/20/23 [History Last Taken Unknown] benzonatate 200 mg capsule 200 mg PO TID PRN cough #20 caps 04/07/23 [Rx Last Taken Unknown] fluticasone propionate 50 mcg/actuation nasal spray,suspension (Flonase Allergy Relief) 2 spray intranasal DAILY #16 grams 04/16/23 [Rx Last Taken Unknown] guaifenesin 600 mg tablet, extended release 12 hr (Mucinex) 600 mg PO BID #60 tabs 04/16/23 [Rx Last Taken Unknown] albuterol sulfate 2 puff inhalation PRN shortness of breath or wheezing 04/20/23 [History Last Taken Unknown] pantoprazole 40 mg granules delayed-release for susp in packet (Protonix) 40 mg PO DAILY 04/20/23 [History Last Taken Unknown] zoledronic acid 5 mg/100 mL in mannitol 5 %-water intravenous piggybck (Reclast) ea IV .QYEAR 04/20/23 [History Last Taken Unknown] Allergy/AdvReac Type Severity Reaction Status Date / Time castor oil Allergy Unknown Verified 04/20/23 20:24 frovatriptan succinate Allergy Rash Verified 04/16/23 13:49 [From Frova] Iodinated Contrast Media Allergy Vomiting Verified 04/20/23 20:24 sumatriptan [From Imitrex] Allergy Rash Verified 04/20/23 20:24 sumatriptan succinate Allergy Rash Verified 04/20/23 20:24 [From Imitrex] vitamin E (d-alpha Allergy Chest Verified 04/20/23 20:24 tocopherol) tightness ezetimibe [From Zetia] AdvReac Severe Severe GI Verified 04/20/23 20:24 upset/stomach pain levofloxacin [From Levaquin] AdvReac Intermediate pain Verified 04/20/23 20:24 Family History Father CAD (coronary artery disease) Myocardial infarction Bleeding disorder History of blood clots CVA (cerebral vascular accident) Mother Colon cancer Diabetes High cholesterol Cancer Skin Sister Psychiatric care High cholesterol Diabetes Colon cancer Brother Colon cancer High cholesterol Surgical History H/O: hysterectomy Hx of appendectomy Hx of kyphoplasty Social History (Updated 04/21/23 @ 00:[address] Mariella Harris DO) household members: none housing: house Smoking Status: Former smoker alcohol intake: never substance use type: does not use what type of physical activity do you participate in: none seatbelt use: always do you feel safe at home: Yes additional social history: , ambulates independently without an assistive device ROS Constitutional Constitutional: Reports anorexia, chills, fatigue, fever(s), malaise and weakness; Denies change in weight, night sweats or other Eyes Eyes: Denies blurry vision, change in eye color, change in vision, discharge from eye(s), double vision, erythema, eye pain, loss of vision or other ENT HEENT: Reports headache(s), nasal congestion, sinus pressure and other Details: Dysgeusia, anosmia ; Denies abnormal hearing, dysphagia, ear pain, epistaxis, hearing loss, nasal discharge, post nasal drip or sore throat Cardiovascular Cardiovascular: Denies chest pain, claudication, dyspnea on exertion, edema, lightheadedness, orthopnea, palpitations, paroxysmal nocturnal dyspnea, rapid heart rate, syncope or other Respiratory/Chest Respiratory/Chest: Reports cough, excessive phlegm production and productive cough; Denies dyspnea, hemoptysis, shortness of breath at rest, shortness of breath with exertion, wheezing or other Gastrointestinal Gastrointestinal: Reports other Details: Decreased appetite ; Denies abdominal pain, coffee ground emesis, constipation, diarrhea, dyspepsia, hematemesis, hematochezia, loose stools, melena, nausea or vomiting Genitourinary Genitourinary: Denies burning urination, difficulty urinating, dysuria, hematuria, nocturia, urinary frequency, urinary hesitancy, urinary incontinence, urinary urgency or other Musculoskeletal Musculoskeletal: Denies arthralgias, back pain, joint pain, joint stiffness, joint swelling, myalgias, neck pain or other Neurologic Neurologic: Denies abnormal gait, abnormal speech, confusion, disequilibrium, dizziness, focal weakness, headache(s), numbness, paresthesias, seizure-like activity, seizures, syncope, tingling, tremor(s) or other Psychiatric Psychiatric: Denies anxiety, depression, homicidal ideation, suicidal ideation or other Endocrine Endocrinology: Denies change in body appearance, cold intolerance, excessive sweating, heat intolerance, polydipsia, polyuria or other Hematologic/Lymphatic Hematologic/Lymphatic: Reports easy bleeding and easy bruising; Denies anemia, lymphadenopathy or other Vital Signs Vital Signs Vital Signs: 04/20/23 20:17 04/20/23 20:37 04/20/23 21:21 Temperature 99.5 F H 98.2 F Temperature Source Oral Oral Pulse Rate 86 90 Respiratory Rate 18 25 H Respiratory Effort Short of Breath Respiratory Pattern Normal Blood Pressure 144/75 H 103/61 Blood Pressure Mean 98 75 Pulse Ox 94 98 Oxygen Delivery Method Room Air Nasal Cannula Oxygen Flow Rate (L/min) 2 04/20/23 20:41 04/20/23 22:00 04/20/23 20:37 Temperature 98.6 F Temperature Source Oral Pulse Rate 85 87 Respiratory Rate 22 H 20 H Respiratory Effort Respiratory Pattern Blood Pressure 123/88 H Blood Pressure Mean 99 Pulse Ox 96 94 Oxygen Delivery Method Room Air Nasal Cannula Oxygen Flow Rate (L/min) 2 04/20/23 20:40 04/20/23 20:45 04/20/23 20:50 Temperature Temperature Source Pulse Rate 83 84 80 Respiratory Rate 20 H 19 H 23 H Respiratory Effort Respiratory Pattern Blood Pressure 131/70 H Blood Pressure Mean 79 Pulse Ox 94 92 93 Oxygen Delivery Method Oxygen Flow Rate (L/min) 04/20/23 21:00 04/20/23 21:10 04/20/23 21:15 Temperature Temperature Source Pulse Rate 83 Respiratory Rate 17 Respiratory Effort Respiratory Pattern Blood Pressure 149/60 H 103/61 Blood Pressure Mean 86 69 Pulse Ox 90 Oxygen Delivery Method Oxygen Flow Rate (L/min) 04/20/23 21:20 04/20/23 21:30 04/20/23 21:40 Temperature Temperature Source Pulse Rate 84 86 84 Respiratory Rate 21 H 21 H 26 H Respiratory Effort Respiratory Pattern Blood Pressure 135/67 H Blood Pressure Mean 83 Pulse Ox 88 87 97 Oxygen Delivery Method Room Air Nasal Cannula Oxygen Flow Rate (L/min) 2 04/20/23 21:45 04/20/23 21:45 04/20/23 21:57 Temperature Temperature Source Pulse Rate 82 88 Respiratory Rate 26 H 21 H Respiratory Effort Respiratory Pattern Blood Pressure 135/57 H 135/57 H Blood Pressure Mean 79 79 Pulse Ox 97 96 Oxygen Delivery Method Nasal Cannula Oxygen Flow Rate (L/min) 2 04/20/23 22:00 04/20/23 22:11 04/20/23 22:15 Temperature Temperature Source Pulse Rate 85 89 85 Respiratory Rate 22 H 10 L 25 H Respiratory Effort Respiratory Pattern Blood Pressure 123/58 H 125/61 H Blood Pressure Mean 74 81 Pulse Ox 96 96 96 Oxygen Delivery Method Nasal Cannula Oxygen Flow Rate (L/min) 2 Weight Weight: 67.5 kg Body Mass Index (BMI) 31.1 Physical Exam Const alert, oriented x3, no apparent distress and well nourished Constitutional Narrative: Obese, elderly female, lying in bed, appears if she does not feel well however does not appear toxic at this time, friend at bedside, appears comfortable General Appearance: cooperative HEENT normocephalic, head/scalp atraumatic and moist oral mucous membranes HEENT Narrative: Mallampati 2-3, no thrush, moderate hearing loss Eyes PERRL, EOMs intact bilaterally and conjunctivae normal Eyes Narrative: No scleral icterus Neck no lymphadenopathy and supple Neck Narrative: Trachea midline, no thyroid enlargement Resp normal respiratory effort, no retractions, no use of accessory muscles and No clear to auscultation bilaterally Resp Narrative: Scattered end expiratory wheeze in the right base Auscultation: wheezes; Negative for rales or rhonchi Cardio regular rate, regular rhythm, S1 normal heart sound, S2 normal heart sound, no murmurs, no rub, no gallops and no clicks GI normal to inspection, nondistended, normoactive bowel sounds, soft to palpation and non-tender Extremity no clubbing, cyanosis or edema Extremity Narrative: Pedal pulses are 2+ Neuro oriented x3, moves all extremities and no focal motor deficits Neuro Narrative: Significant generalized weakness noted with proximal musculature being weaker than distal Speech: speech normal Psych Psych Narrative: Affect is flat, eye contact is good, no signs of depression or anxiety Results Lab / Micro Data Attestation: I reviewed the patient's lab results. 04/20/23 19:37 04/20/23 19:37 Labs: Laboratory Results - last 24 hr 04/20/23 19:37: WBC 12.9 H, RBC 3.95 L, Hgb 12.5, Hct 37.5, MCV 94.9, MCH 31.6, MCHC 33.3, RDW Std Deviation 44.1 H, RDW Coeff of Mallika 12.6, Plt Count 243, MPV 10.8, Immature Gran % (Auto) 0.400, Neut % (Auto) 76.5 H, Lymph % (Auto) 16.0 L, [place] % (Auto) 6.9, Eos % (Auto) 0.1, Baso % (Auto) 0.1, Absolute Neuts (auto) 9.9 H, Absolute Lymphs (auto) 2.07, Nucleated RBC % 0, Sodium 134 L, Potassium 3.8, Chloride 102, Carbon Dioxide 25.0, Anion Gap 7, BUN 11, Creatinine 0.71, Estim Creat Clear Calc 49.68, Est GFR (MDRD) Af Amer 103, Est GFR (MDRD) Non-Af 85, BUN/Creatinine Ratio 15.6, Glucose 99, Calcium 8.8, Troponin I High Sens 8 04/20/23 22:14: Urine Color Yellow, Urine Clarity Clear, Urine pH 7.0, Ur Specific [place] 1.010, Urine Protein 15 H, Urine Glucose (UA) Normal, Urine Ketones 15 H, Urine Occult Blood 25 H, Urine Nitrite Negative, Urine Bilirubin Negative, Urine Urobilinogen Normal, Ur Leukocyte Esterase Negative, Urine RBC 0 SEEN, Urine WBC 0 SEEN, Ur Squamous Epith Cells 0 SEEN, Urine Bacteria 0 SEEN, Urine Mucus 0 SEEN Imaging Radiology Impression Chest X-Ray 04/20/23 21:20 IMPRESSION: No acute cardiopulmonary disease. Electronically Signed: Michele Casper MD at 22:26 EST , Brain CT 04/20/23 21:30 IMPRESSION: Negative head/brain CT without intravenous contrast. AIDOC was utilized to assist in identifying pertinent positive findings. Electronically Signed: Mihcele Casper MD at 22:46 EST , Assessment & Plan Assessment/Plan (1) Debility: (2) Fever: (3) Hypoxia: (4) Generalized weakness: (5) Leukocytosis: PLAN: Plan Fever -Etiology is currently unclear -Patient does have leukocytosis with left shift -With hypoxia preliminary best estimate of source would be a pneumonia -Chest x-ray and CT are not indicative of pneumonia however at this time -Respiratory viral panel is pending -Strep pneumo and Legionella antigens are pending -Check sputum culture -Blood cultures are pending -Start ceftriaxone and azithromycin Hypoxia with cough -Oxygen saturations were 87% on room air. Patient does not wear oxygen at baseline. Remote history of tobacco abuse -CT of the chest does show some bronchiectasis -Scheduled DuoNebs with as needed albuterol -Check strep pneumo and Legionella antigens -Check sputum culture -Continue home Mucinex -Continue home Tessalon Perles -I-S -Acapella -Will need ambulatory pulse ox prior to discharge Leukocytosis -Likely related to the above -Antibiotics as ordered -Cultures as ordered -Continue to monitor Generalized weakness/debility -Patient typically ambulates independently without assistive device at home -Lives independently -Suspect related to above -Consult PT/OT -Case management/social work to follow to assist with discharge planning Decreased appetite -Likely related to acute illness along with dysgeusia and anosmia -Consult dietitian -Add supplements with Ensure Recent COVID-19 infection -Was treated with Decadron and Tessalon Perles -Was not given Paxlovid -Diagnosed on 04/07/2023 -Out of the window for isolation History of PE/factor V Leiden heterozygous -Continue home anticoagulation with Eliquis GERD/hiatal hernia -Continue home PPI DM-2 -Diet controlled -P.o. appetite is very poor so we will liberalize diet and adjust if need to due to hyperglycemia Neuropathy -Continue home Lyrica Osteoporosis -Patient is on Prolia -Continue home vitamin D and potassium supplementation History of migraines -No current issues Depression/insomnia -Continue home mirtazapine Hearing loss -Patient wears hearing aids Obesity -BMI is 31.1 -Recommend weight loss -Complicates treatment, prognosis, outcomes DVT prophylaxis -Continue home apixaban CODE STATUS -Full code is verified admission Charges/Coding Visit Charges Inpatient E&M: 72340 Init Hosp L2
--- NOTE | 2023-04-20 23:23 | CT_ITS ---
EXAM: CT CHEST WITHOUT INTRAVENOUS CONTRAST CLINICAL INDICATION: fever and hypoxia TECHNIQUE: Helically acquired images were obtained of the chest without intravenous contrast. CTDIvol = ( 13.77 ) mGy, DLP = ( 419.74 ) mGycm This CT exam was performed using one or more of the following dose reduction techniques: automated exposure control, adjustment of the mA and/or kV according to patient size, and/or use of iterative reconstruction technique. COMPARISON: No relevant prior studies available. FINDINGS: LUNGS AND PLEURAL SPACES: Left apical pleural parenchymal scarring. Subsegmental atelectasis or mild pleural parenchymal scarring at the posterior lower lobes. No mass. No consolidation. No pleural effusion or pneumothorax. No airway obstruction or significant narrowing. Bronchial wall thickening worse at the lower lobes can be seen with age indeterminate bronchitis. HEART: Small to moderate pericardial effusion with no definite cardiomegaly. No significant coronary artery calcifications. MEDIASTINUM: Large hiatal hernia. Remaining cardiomediastinal/hilar structures are unremarkable. No mediastinal or hilar adenopathy. Esophagus is unremarkable. THYROID: Unremarkable. No thyroid lesions. Incidental finding of a splenule BONES/JOINTS: Degenerative changes of the spine. Diffuse osteopenia. Multiple chronic compression fractures of the thoracolumbar spine. Sequela of multilevel thoracolumbar spinal vertebroplasty. No suspicious lytic or blastic abnormality. Multiple old healed left rib fractures. SOFT TISSUES: Soft tissues are unremarkable. VASCULATURE: Multivessel calcific coronary arteriolosclerosis. Atherosclerotic calcifications of the aortic valve. Thoracic aorta is non-dilated. CT/Chest without Contrast IMPRESSION: 1. No pneumonia. No other acute disease. 2. Small to moderate pericardial effusion. Large hiatal hernia. 3. Ancillary findings as above. Electronically Signed: Michele Casper MD at 0:32 EST ,
[2023-04-21] VITALS (11 sets, daily range): BP systolic 123–150; BP diastolic 59–79; PULSE 65–83; RESP 16–22; TEMP 36.8–37; O2SAT 95–98; BMI 30.3
--- OUTSIDE RECORDS SUMMARY | 2023-04-21 00:13 | XMS RPT_ITS | CCD ---
Author Name Unknown Address [address] [place] [address] Organization [facility] Care Team Providers Care Mohel Name Role Phone Stacie Madera Unavailable Unavailable Cecil HELMS, Bianca Gibson Unavailable SUZANNE BOB Unavailable Unavailable SYSTEM, PROVIDER NOT IN Unavailable Unavaila ble DeFinis, Harumi Y Unavailable Unavailable DeFinis, Harumi Y Unavailable Unavailable KRAIG YING Admitting Unavailable KRAIG YING Referring Unavailable KEN PATTEN Attending Unavailable Allergies Allergy Classification Reported Allergen(s) Allergy Type Date of Onset Reaction(s) Facility (5 sources) castor oil; Translations: [CASTOR OIL] drug allergy 09-03-2015 [facility] Work Phone: (4 sources) frovatriptan drug allergy 09-03-2015 [facility] Work Phone: (5 sources) iodine; Translations: [IODINE] drug allergy 03-04-2011 [facility] Work Phone: (4 sources) SUMAtriptan drug allergy 09-03-2015 Rash [facility] Work Phone: (4 sources) VIT E SOLUTION drug allergy 09-03-2015 [facility] Work Phone: (1 source) frovatriptan; Translations: [FROVATRIPTAN] Drug Allergy 02-12-2017 [facility] Repository (1 source) SUMAtriptan; Translations: [SUMATRIPTAN SUCCINATE] Drug Allergy 02-12-2017 [facility] Repository (1 source) vitamin E; Translations: [VITAMIN E (BULK)] Drug Allergy 02-12-2017 [facility] Repository Medications Completed/Discontinued Medications Medication Drug Class(es) Dates Sig (Normalized) Sig (Original) acetaminophen / HYDROcodone (12 sources) Opioid Agonist Start: 01-26-2013 HYDROCODONE-ACETAMI NOPHEN 5-500 MG TABS as needed HYDROCODONE-ACETAMI NOPHEN [id number] Jose E Soria MD Problems Active Problems [...] 09-01-2011 Episodic Unclassified (1 source) Dysuria / [id number]() Onset: 02-12-2017 Unclassified (1 source) Knee Pain / [id number]() Onset: 02-12-2017 Unclassified (1 source) Unknown / [...] BP Systolic 136 mm[Hg] Bianca Jacob RN [facility] Work Phone: 09-03-2015 10:54-0400 [...] 15:00-0500 Heart rate 68 /min Flyjes Mu [facility] Work Phone: 05-29-2011 12:06-0500 Body Temperature 97.6 [degF] [facility] Work Phone: 03-05-2011 16:11-0500 Height 156.21 cm [facility] Work Phone: Encounters Encounter Date Encounter Type Care Provider Facility Start: 02-27-2022 End: 03-05-2022 Evaluation and management of inpatient KRAIG [facility] Start: 02-12-2017 End: 02-12-2017 Emergency department patient visit SUZANNE Muñoz [facility] Procedures Date Procedure Procedure Detail Performing Clinician [...] Author Start: 08-31-2017 End: 08-31-2017 Appointment Appointment [facility] Work Phone: Start: 09-01-2016 End: 09-01-2016 Appointment Appointment [facility] Work Phone: Start: 09-01-2016 End: 09-01-2016 Follow Up Appt 1 year Follow Up Appt 1 year [facility] Work Phone: Start: 09-01-2016 End: 09-01-2016 PFM [facility]Trusera [facility] Work Phone: Start: 09-03-2015 End: 09-03-2015 Follow Up Appt 1 year Follow Up Appt 1 year [facility] Work Phone: Start: 09-03-2015 End: 09-03-2015 PFM PFTrusera [facility] Work Phone: Start: 02-09-2014 End: 02-09-2014 Follow Up Appt 1 year Follow Up Appt 1 year [facility] Work Phone: Start: 02-09-2014 End: 02-09-2014 Follow Up Appt Other Follow Up Appt Other [facility] Work Phone: Start: 02-09-2014 End: 02-09-2014 PFM PFM [facility] Work Phone: Start: 01-26-2013 End: [...] Follow Up Appt 1 year [facility] Work Phone: Start: 09-01-2011 End: 09-01-2011 Follow Up Appt 6 months Follow Up Appt 6 months [facility] Work Phone: Start: 03-05-2011 End: 03-05-2011 Follow Up Appt 6 months Follow Up Appt 6 months [facility] [employer] [facility] Work Phone: Start: 03-05-2011 End: 03-06-2011 Gastroenterology Referral Gastroenterology Referral James Heredia, [facility] [place], [address] [place], [address] [facility] Work Phone: Payers Date Payer Category Payer [facility] [id number] 2009 Medicare [id number] Discharge summary note 03-05-2022 Note Date & [...] HYDROcodone-acetaminophen 5-325 MG tablet Commonly known as: [place] warfarin 1 MG tablet Commonly known as: [...] Complexity: follow up within 7-14 calendar days (78541) [x] Severe Complexity: follow up within 7 calendar days (16799) Follow up Testing, Pending results or Referrals [...] MD Division of Hospitalist Medicine [facility]patient Medical Services[facility] 03/05/2022 [facility] Clinical Note 03-04-2022 Note Date & Type Note Facility 03-04-2022 Note Hospitalist Progress Note 03/04/2022 Subjective: Admit Date: 02/27/2022 PCP: No primary care provider on file. Room#: [facility] A Interval History: No overnight issues. Up [...] MD Division of Hospitalist Medicine Inpatient Medical Services/[facility] Clinical Note 02-27-2022 Note Date & Type [...] didn't), for which patient was transferred to [facility] ICU. PLAN: 1. Neuro/Spine: 13cm spinal [...] Renal: normal renal function, allen placed at [facility] --> discontinue allen 6. Hem: Factor V [...] MD Division of Trauma Department of Surgery [facility] Pager: [phone] Kristin Saenz MD Division of Trauma Department of Surgery [facility] Pager: [phone] [facility] H&P 02/27/2022 6:12 AM Attending: Dr. Ying Level of Initial Activation: Direct Admit Upgraded: No To:N/A Mechanism of Arrival:Transfer from [facility] ED Chief Complaint: back pain History of Traumatic Injury: 76 year old female with history of factor V Leiden, hx of DVT and PE on coumadin presents as an emergent transfer from [facility] to [facility] ICU for 13 cm epidural hematoma [...] experienced any of the following: fever, cough, [id number], myalgias, loss of taste/smell, diarreha/GI symptoms? No [...] education level: No (more content not included)... [facility] Summary Purpose Family History No Family History Records FoundNo Family History Records Found Advance Directives No Advanced Directives Records FoundNo Advanced Directives Records Found Additional Source Comments INFORMATION SOURCE (unrecogn ized section and content) DATE CREATED AUTHOR AUTHOR'S FELICITA ATION 03/12/2022 [facility] FOR RECORDS PERTAINING TO PATIENTS WHO [...] BE BASED ON THE PRIMARY CLINICAL RECORDS. [employer] [facility]. provides no warranty or guarantee of the accuracy or completeness of information in this document.
[2023-04-21] MEDS: Ceftriaxone 1 GM/50 ML BAG IV (00:40)
--- OUTSIDE RECORDS SUMMARY | 2023-04-21 00:56 | XMS RPT_ITS | CCD ---
Author Name Unknown Address [address] [place] [address] Organization [facility] Care Team Providers Care Pen Tender Name Role Phone Stacie Madera Unavailable Unavailable Cecil HELMS, Bianca Gibson Unavailable [phone] SUZANNE BOB Unavailable Unavailable SYSTEM, PROVIDER NOT IN Unavailable Unavaila ble DeFinis, Harumi Y Unavailable Unavailable DeFinis, Harumi Y Unavailable Unavailable KRAIG YING Admitting Unavailable KRAIG YING Referring Unavailable KEN PATTEN Attending Unavailable Allergies Allergy Classification Reported Allergen(s) Allergy Type Date of Onset Reaction(s) Facility (5 sources) castor oil; Translations: [CASTOR OIL] drug allergy 09-03-2015 [facility] Work Phone: (4 sources) frovatriptan drug allergy 09-03-2015 [facility] Work Phone: (5 sources) iodine; Translations: [IODINE] drug allergy 03-04-2011 [facility] Work Phone: (4 sources) SUMAtriptan drug allergy 09-03-2015 Rash [facility] Work Phone: (4 sources) VIT E SOLUTION drug allergy 09-03-2015 [facility] Work Phone: (1 source) frovatriptan; Translations: [FROVATRIPTAN] Drug Allergy 02-12-2017 [facility] Repository (1 source) SUMAtriptan; Translations: [SUMATRIPTAN SUCCINATE] Drug Allergy 02-12-2017 [facility] Repository (1 source) vitamin E; Translations: [VITAMIN E (BULK)] Drug Allergy 02-12-2017 [facility] Repository Medications Completed/Discontinued Medications Medication Drug Class(es) Dates Sig (Normalized) Sig (Original) acetaminophen / HYDROcodone (12 sources) Opioid Agonist Start: 01-26-2013 HYDROCODONE-ACETAMI NOPHEN 5-500 MG TABS as needed HYDROCODONE-ACETAMI NOPHEN [id number] Jose E Soria MD Problems Active Problems [...] 09-01-2011 Episodic Unclassified (1 source) Dysuria / 603064() Onset: 02-12-2017 Unclassified (1 source) Knee Pain / 742067() Onset: 02-12-2017 Unclassified (1 source) Unknown / [...] BP Systolic 136 mm[Hg] Bianca Jacob RN [facility] Work Phone: 09-03-2015 10:54-0400 [...] 15:00-0500 Heart rate 68 /min Flyjes Mu [facility] Work Phone: 05-29-2011 12:06-0500 Body Temperature 97.6 [degF] [facility] Work Phone: 03-05-2011 16:11-0500 Height 156.21 cm [facility] Work Phone: Encounters Encounter Date Encounter Type Care Provider Facility Start: 02-27-2022 End: 03-05-2022 Evaluation and management of inpatient KRAIG [facility] Start: 02-12-2017 End: 02-12-2017 Emergency department patient visit SUZANNE Muñoz [facility] Procedures Date Procedure Procedure Detail Performing [...] Author Start: 08-31-2017 End: 08-31-2017 Appointment Appointment [facility] Work Phone: Start: 09-01-2016 End: 09-01-2016 Appointment Appointment [facility] Work Phone: Start: 09-01-2016 End: 09-01-2016 Follow Up Appt 1 year Follow Up Appt 1 year [facility] Work Phone: Start: 09-01-2016 End: 09-01-2016 PFM [employer] [facility] Work Phone: Start: 09-03-2015 End: 09-03-2015 Follow Up Appt 1 year Follow Up Appt 1 year [facility] Work Phone: Start: 09-03-2015 End: 09-03-2015 PFM [employer] [facility] Work Phone: Start: 02-09-2014 End: 02-09-2014 Follow Up Appt 1 year Follow Up Appt 1 year [facility] Work Phone: Start: 02-09-2014 End: 02-09-2014 Follow Up Appt Other Follow Up Appt Other [facility] Work Phone: Start: 02-09-2014 End: 02-09-2014 PFM PFM [facility] Work Phone: Start: 01-26-2013 End: [...] Follow Up Appt 1 year [facility] Work Phone: Start: 09-01-2011 End: 09-01-2011 Follow Up Appt 6 months Follow Up Appt 6 months [facility] Work Phone: Start: 03-05-2011 End: 03-05-2011 Follow Up Appt 6 months Follow Up Appt 6 months [facility] [employer] [facility] Work Phone: Start: 03-05-2011 End: 03-06-2011 Gastroenterology Referral Gastroenterology Referral James Heredia, [facility], [address] [place], [address] [facility] Work Phone: Payers Date Payer Category Payer [facility] [id number] 2009 Medicare [id number] Discharge summary note 03-05-2022 Note Date & [...] HYDROcodone-acetaminophen 5-325 MG tablet Commonly known as: [place] warfarin 1 MG tablet Commonly known as: [...] Complexity: follow up within 7-14 calendar days (67616) [x] Severe Complexity: follow up within 7 calendar days (74947) Follow up Testing, Pending results or Referrals [...] MD Division of Hospitalist Medicine Inpatient Medical Services/[facility] 03/05/2022 [facility] Clinical Note 03-04-2022 Note Date & Type Note Facility 03-04-2022 Note Hospitalist Progress Note 03/04/2022 Subjective: Admit Date: 02/27/2022 PCP: No primary care provider on file. Room#: [facility] A Interval History: No overnight issues. Up [...] MD Division of Hospitalist Medicine Inpatient Medical Services/[facility] Clinical Note 02-27-2022 Note Date & Type [...] didn't), for which patient was transferred to [facility] ICU. PLAN: 1. Neuro/Spine: 13cm spinal epidural [...] Renal: normal renal function, allen placed at [facility] --> discontinue allen 6. Hem: Factor V [...] of Trauma Department of Surgery [facility] Pager: [phone] Kristin Saenz MD Division of Trauma Department of Surgery [facility] Pager: [phone] [facility] H&P 02/27/2022 6:12 AM Attending: Dr. Ying Level of Initial Activation: Direct Admit Upgraded: No To:N/A Mechanism of Arrival:Transfer from [facility] ED Chief Complaint: back pain History of Traumatic Injury: 76 year old female with history of factor V Leiden, hx of DVT and PE on coumadin presents as an emergent transfer from [facility] ED to [facility] ICU for 13 cm epidural hematoma [...] experienced any of the following: fever, cough, [id number], myalgias, loss of taste/smell, diarreha/GI symptoms? No [...] education level: No (more content not included)... [facility] Summary Purpose Family History No Family History Records FoundNo Family History Records Found Advance Directives No Advanced Directives Records FoundNo Advanced Directives Records Found Additional Source Comments INFORMATION SOURCE (unrecogn ized section and content) DATE CREATED AUTHOR AUTHOR'S FELICITA ATION 03/12/2022 [facility] FOR RECORDS PERTAINING TO PATIENTS WHO [...] BE BASED ON THE PRIMARY CLINICAL RECORDS. [employer] [facility]. provides no warranty or guarantee of the accuracy or completeness of information in this document.
[2023-04-21] MEDS: Azithromycin 500 MG in Dextrose 5%-Water (250mL Bag) 250 ML 250 MG IV (01:23)
[2023-04-21 01:35] LABS: Lactic Acid 0.6 mmol/L (0.4-1.9)
[2023-04-21] MEDS: Pregabalin 50 MG Capsule PO ×4 (02:06→20:54)
[2023-04-21] MEDS: Ondansetron 4 MG/2 ML Vial IV (02:06)
[2023-04-21 03:21] LABS: M R Staph aureus DNA By PCR Negative (Negative); Probe Check PASS; Specimen Processing Control PASS
[2023-04-21] MEDS: Cholecalciferol (VIT D3) 25 MCG TABLET (1,000 UNITS) 50 MCG PO (05:32)
[2023-04-21 06:00] LABS: Absolute Lymphocyte Count 2.12 X10^3/uL (0.83-4.51); Absolute Neutrophil Count 8.4 X10^3/uL (2.0-7.7); Basophil# 0.04 X10^3/uL; Basophil% 0.3 % (0-1); Eosinophil# 0.06 X10^3/uL; Eosinophils% 0.5 % (0-5); Hematocrit 33.7 % (37-47); Lymphocyte # 2.12 X10^3/ul (0.83-4.51); Mean Corp Hgb Conc 32.6 g/dL (32-36); Mean Corpuscular Hgb 31.6 pg (27.0-32.0); Mean Corpuscular Volume 96.8 fL (81-99); Mean Platelet Vol. 9.9 fl (6.2-12.0); Monocyte% 9.3 % (0-10); NRBC Flagged by Analyzer 0 % (0-5); Neutrophil # 8.38 X10^3/uL (2.7-7.7); Neutrophil % 71.3 % (47-70); Platelet Count 208 K/mm3 (150-450); RBC Distribution Width CV 12.7 % (11.6-14.6); RBC Distribution Width SD 45.5 fl (35.1-43.9); Red Blood Count 3.48 M/mm3 (4.2-5.4); White Blood Count 11.8 K/mm3 (4.4-11.0)
[2023-04-21] MEDS: HYDROcodone Bitartrate/Apap 5/325 Tablet PO ×2 (06:24→20:54)
[2023-04-21 06:28] LABS: ALB/GLOB Ratio 0.7 RATIO (0.9-2.4); AST(SGOT) 7 U/L (15-37); Alanine Aminotransfer ALT/SGPT 16 U/L (13-56); Albumin, Serum 2.6 g/dL (3.2-5.0); Alkaline Phosphatase 52 U/L (45-117); Anion Gap 6 (5-15); BUN 10 mg/dL (7-18); BUN/Creat Ratio 18.3 RATIO (10-20); Calcium,Total 7.9 mg/dL (8.5-10.1); Chloride 107 mmol/L (98-107); Creatinine, Serum 0.55 mg/dL (0.55-1.02); EST Glomerular Filtration Rate 114 mL/min (>60); Est Glom Filt Rate - Afr Amer 138 mL/min (>60); Estimated Creatinine Clearance 49.06 ml/min; Globulin 3.7 g/dL (2.2-4.2); Glucose 104 mg/dL (74-106); Magnesium 2.2 mg/dL (1.6-2.6); Potassium 3.8 mmol/L (3.5-5.1); Protein, Total 6.3 g/dL (6.4-8.2); Sodium Level 137 mmol/L (136-145); Thyroid Stim Hormone (TSH) 0.53 uIU/mL (0.358-3.74)
[2023-04-21] MEDS: Ipratropium/Albuterol Sulfate 3 ML AMPUL.NEB INHALATION ×3 (07:21→19:16)
[2023-04-21] MEDS: APIXABAN 5 MG TABLET PO ×2 (09:38→20:54)
[2023-04-21] MEDS: Pantoprazole Sodium 40 MG Tablet PO (09:38)
[2023-04-21] MEDS: guaiFENesin 600 MG Tablet PO ×2 (09:38→20:54)
[2023-04-21] MEDS: Furosemide 40 MG Tablet PO (09:38)
[2023-04-21] MEDS: Calcium (Elemental) 500 MG Tablet PO (09:38)
[2023-04-21] MEDS: Cholecalciferol (VIT D3) 25 MCG TABLET (1,000 UNITS) 100 MCG PO (11:19)
--- NOTE | 2023-04-21 13:15 | CASEMGMT ---
Addendum entered by Sonia Harrison 04/21/23 17:41: Discussed Pt Link w/pt for PNA. Pt agreeable to referral. Order placed. Original Note: RN?CM?COMMERCIAL CRABBER?CM?to room to meet with patient for initial transition planning/care coordination?assessment.?RN?CM?introduced self and role at [facility].? Pt voices understanding and consents to?assessment?at this time.? Pt resting in bed in no distress at this time.?Family friend @ bedside and pt agreeable to her being present during assessment. Pt is A/O at this time and answers all questions appropriately.?? Care providers, pharmacy, and demographics verified/updated at this time. PCP: Dr Mensah Specialists: YONAS/cardiology, Dr Donohue-pain mgnt, Dr Carr-endocrinology Preferred Pharmacy: [facility] Retail @ discharge. Insurance: [employer] Prescription Benefit:?Yes Living Will/HPOA:?Has LW and HCPOA, who is her daughter, Yane LNOK: 2 dtr's: Yane and Analilia. Son, Andrew VALVERDE Living Arrangements: Lives alone in 2-story home w/ramp entrance. FFSU. Independent @ baseline w/ADL's and IADL's and manages her own medications. Transportation:?Pt states drives self and states no transportation concerns at this time.? Family can assist if needed. DME: States has the following DME:?RTS, lift chair, grab bars, medical alert, pulse ox, and functioning glucometer w/supplies. Pt states is getting low on supplies, but not sure what all she needs. SCOOTER CM advised her to check on this when she returns home and to contact PCP or Dr Carr for refills, if needed. Pt has a built-in shower seat, but does not use it, and has a walker available, but does not use it. No home O2. Discussed home O2 set-up process w/pt, in case she would qualify for it @ discharge. Pt denies having preference of DME co, made aware [employer] is affiliated w/[facility] and states is okay with [employer]. Pt states no need for further DME at this time.? HHC/SNF: No hx of either. Pt wishes to return home and states has no concerns with going home at time of discharge.? Pt is not using DME to ambulate at this time and is not homebound and would not qualify for HHC. She denies needs. CM?to follow for home oxygen needs and any further discharge planning/needs.? Pt voices no further concerns/needs at this time.? Advised pt to ask for?CM?if any further questions/concerns/needs arise.? Voices understanding. PLAN:??Home. Follow for possible home o2 @ dc/. Ming SORENSENN?RN?CM
[2023-04-21] MEDS: Acetaminophen 325 MG Tablet 650 MG PO (15:38)
[2023-04-21] MEDS: Ensure Plus High Protein 120 ML LIQUID PO ×2 (17:02→20:54)
--- NOTE | 2023-04-21 18:42 | ECHOCS_ITS ---
Reason For Study: Dyspnea/SOB Procedure This was a 2D Doppler, Color Flow transthoracic echocardiogram. The study was technically difficult. Contrast injection was performed. Exam performed portable in ICU/CCU. Left Ventricle Normal LV size. Left ventricular systolic function is normal. The estimated ejection fraction is 65 %. No evidence for diastolic dysfunction. Right Ventricle Normal RV size. Normal systolic function. Atria Normal left atrium. Normal right atrium. Mitral Valve There is Mild focal posterior mitral annular calcification. The mitral valve is structurally normal. No prolapse or stenosis seen. Tricuspid Valve Normal tricuspid valve. Mild (1+) tricuspid valve insufficiency. Right ventricular systolic pressure estimated to be 32 mmHg. Aortic Valve Trisinus/trileaflet aortic valve. Mild focal aortic valve calcification. Aortic sclerosis, no stenosis. Pulmonic Valve Normal pulmonic valve. Trivial pulmonic valve insufficiency. Great Vessels Normal aortic root. Pericardium/Pleural Epicardial fat. Trivial pericardial effusion. There are no echocardiographic indications of cardiac tamponade. Medication Diluted definity 2ml given slow IV push to enhance endocardial definition. MMode/2D Measurements & Calculations LVIDd: 4.0 cm IVSd: 0.99 cm LVOT diam: 2.0 cm LVIDs: 2.5 cm LVPWd: 0.80 cm RVDd: 3.1 cm FS: 38.9 % LVOT area: 3.0 cm2 Ao root diam: 3.0 cm LAV(MOD-bp): 46.4 ml LVAd ap4: 25.6 cm2 LA dimension: 3.3 cm LAV(MOD-bp) Indexed: 29.2 ml/m2 LVLd ap4: 7.6 cm LAV(MOD-sp2): 52.3 ml EDV(MOD-sp4): 72.2 ml LAV(MOD-sp4): 41.0 ml EDV(sp4-el): 73.4 ml LVAs ap4: 15.5 cm2 LVLs ap4: 6.4 cm ESV(MOD-sp4): 32.4 ml ESV(sp4-el): 31.8 ml EF(MOD-sp4): 55.1 % EF(sp4-el): 56.7 % SV(MOD-sp4): 39.8 ml SV(sp4-el): 41.7 ml LA A4 area: 15.9 cm2 RA A4 area: 11.5 cm2 TAPSE: 1.8 cm Time Measurements MV dec time: 0.15 sec Doppler Measurements & Calculations MV E max go: 74.5 cm/sec Lat Peak E' Go: 8.8 cm/sec Med Peak E' Go: 5.2 cm/sec MV A max go: 74.8 cm/sec E/E' lat: 8.5 E/E' med: 14.3 MV E/A: 1.00 MV V2 max: 95.4 cm/sec MV P1/2t max go: 94.9 cm/sec Ao V2 max: 185.6 cm/sec MV max P.6 mmHg MV P1/2t: 53.0 msec Ao max P.8 mmHg MV V2 mean: 54.1 cm/sec MV dec slope: 524.4 cm/sec2 Ao V2 mean: 123.8 cm/sec MV mean P.4 mmHg MVA(P1/2t): 4.2 cm2 Ao mean P.2 mmHg MV V2 VTI: 24.3 cm Ao V2 VTI: 38.5 cm MVA(VTI): 3.4 cm2 AV (velocity ratio): 0.72 ALONDRA(I,D): 2.2 cm2 ALONDRA(V,D): 2.0 cm2 LV V1 max: 122.5 cm/sec SV(LVOT): 83.4 ml PA V2 max: 78.3 cm/sec LV V1 max P.0 mmHg LV V1 mean P.4 mmHg LV V1 mean: 87.8 cm/sec LV V1 VTI: 27.6 cm TR max go: 269.1 cm/sec TR max P.0 mmHg ECHO/Echo Complete W/ Contrast Interpretation Summary The estimated ejection fraction is 65 %. No evidence for diastolic dysfunction. There is Mild focal posterior mitral annular calcification. Mild (1+) tricuspid valve insufficiency. Mild focal aortic valve calcification. Contrast injection was performed. Ordering Physician: Fransisco Barroso Referring Physician: Oleghe, Efewongbe Performed By: Lul Ocampo, KRISHAN
--- NOTE | 2023-04-21 18:48 | PCM.PN.HOSP ---
Reason for Visit Reason for Visit: Diagnoses Elevated white blood cell count, unspecified (04/21/23) Hypoxemia (04/21/23) Fever, unspecified (04/21/23) Weakness (04/21/23) Other malaise (04/21/23) Subjective Subjective Patient was seen and examined today, her white blood cell count this morning was 11.8, she has been afebrile and she has no complaints of any sputum production, cough, or chills. I reviewed her medical record, I do not feel she needs continued IV antibiotics at this time because there is no evidence of pneumonia on her imaging studies. The exact etiology of the hypoxia is not known to me at this time, I have elected to order an echocardiogram on the patient tomorrow. Patient was off oxygen for a time this morning but at the time of this dictation she is on 2 L/min via nasal cannula. Patient denies any history of lung issues. Patient did state that approximately 2 weeks ago she had COVID-19, she was given a prescription for Decadron, she was not placed on Paxlovid. Objective Data Objective Data Vital Signs: Vital Signs Temp Pulse Resp BP Pulse Ox O2 Del Method O2 Flow Rate 98.2 F 80 22 H 140/61 H 98 Nasal Cannula 2 04/21/23 15:12 04/21/23 15:24 04/21/23 15:12 04/21/23 15:12 04/21/23 15:12 04/21/23 15:24 04/21/23 15:24 Oxygen Flow Rate (L/min) 2 Oxygen Delivery Method Nasal Cannula Weight: 65.8 kg Body Mass Index (BMI) 30.3 Intake & Output: Intake and Output for Last 24 Hours 04/19/23 04/20/23 04/21/23 23:59 23:59 23:59 Intake Total 1350 / 1350 405 / 405 Output Total 700 / 700 Balance 1350 / 1350 -295 / -295 Lab / Micro Data 04/21/23 05:35 04/21/23 05:35 Labs: Laboratory Results - last 24 hr 04/20/23 19:37: WBC 12.9 H, RBC 3.95 L, Hgb 12.5, Hct 37.5, MCV 94.9, MCH 31.6, MCHC 33.3, RDW Std Deviation 44.1 H, RDW Coeff of Mallika 12.6, Plt Count 243, MPV 10.8, Immature Gran % (Auto) 0.400, Neut % (Auto) 76.5 H, Lymph % (Auto) 16.0 L, [place] % (Auto) 6.9, Eos % (Auto) 0.1, Baso % (Auto) 0.1, Absolute Neuts (auto) 9.9 H, Absolute Lymphs (auto) 2.07, Nucleated RBC % 0, Sodium 134 L, Potassium 3.8, Chloride 102, Carbon Dioxide 25.0, Anion Gap 7, BUN 11, Creatinine 0.71, Estim Creat Clear Calc 49.68, Est GFR (MDRD) Af Amer 103, Est GFR (MDRD) Non-Af 85, BUN/Creatinine Ratio 15.6, Glucose 99, Calcium 8.8, Troponin I High Sens 8 04/20/23 22:14: Urine Color Yellow, Urine Clarity Clear, Urine pH 7.0, Ur Specific [place] 1.010, Urine Protein 15 H, Urine Glucose (UA) Normal, Urine Ketones 15 H, Urine Occult Blood 25 H, Urine Nitrite Negative, Urine Bilirubin Negative, Urine Urobilinogen Normal, Ur Leukocyte Esterase Negative, Urine RBC 0 SEEN, Urine WBC 0 SEEN, Ur Squamous Epith Cells 0 SEEN, Urine Bacteria 0 SEEN, Urine Mucus 0 SEEN 04/20/23 23:55: Lactic Acid 0.6 04/21/23 01:30: MRSA (PCR) Negative 04/21/23 05:35: WBC 11.8 H, RBC 3.48 L, Hgb 11.0 L, Hct 33.7 L, MCV 96.8, MCH 31.6, MCHC 32.6, RDW Std Deviation 45.5 H, RDW Coeff of Mallika 12.7, Plt Count 208, MPV 9.9, Immature Gran % (Auto) 0.600, Neut % (Auto) 71.3 H, Lymph % (Auto) 18.0 L, [place] % (Auto) 9.3, Eos % (Auto) 0.5, Baso % (Auto) 0.3, Absolute Neuts (auto) 8.4 H, Absolute Lymphs (auto) 2.12, Nucleated RBC % 0, Sodium 137, Potassium 3.8, Chloride 107, Carbon Dioxide 24.0, Anion Gap 6, BUN 10, Creatinine 0.55, Estim Creat Clear Calc 49.06, Est GFR (MDRD) Af Amer 138, Est GFR (MDRD) Non-Af 114, BUN/Creatinine Ratio 18.3, Glucose 104, Calcium 7.9 L, Phosphorus 3.0, Magnesium 2.2, Total Bilirubin 0.50, AST 7 L, ALT 16, Alkaline Phosphatase 52, Total Protein 6.3 L, Albumin 2.6 L, Globulin 3.7, Albumin/Globulin Ratio 0.7 L, TSH 0.53 Micro: Microbiology 04/20/23 22:14 Urine, Clean Catch Legionella Antigen - Final 04/20/23 22:14 Urine, Clean Catch Streptococcus pneumoniae Antigen (M - Final 04/20/23 21:05 Mucosa - Nasopharyngeal Respiratory Panel (PCR) - Final Radiography Diagnostic Testing: Radiology Impression Chest X-Ray 04/20/23 21:20 IMPRESSION: No acute cardiopulmonary disease. Electronically Signed: Michele Casper MD at 22:26 EST Reading Location ID and State: [employer] / [employer] Tel , Service support , Brain CT 04/20/23 21:30 IMPRESSION: Negative head/brain CT without intravenous contrast. AIDOC was utilized to assist in identifying pertinent positive findings. Electronically Signed: Michele Casper MD at 22:46 EST Reading Location ID and State: [employer] / [employer] Tel , Service support , Chest CT 04/20/23 23:23 IMPRESSION: 1. No pneumonia. No other acute disease. 2. Small to moderate pericardial effusion. Large hiatal hernia. 3. Ancillary findings as above. Electronically Signed: Michele Casper MD at 0:32 EST Reading Location ID and State: [employer] / [employer] Tel , Service support , Physical Exam Const alert, oriented x3, no apparent distress and average body habitus General Appearance: cooperative, well kempt and well developed Orientation / Consciousness: awake, oriented to person, oriented to place and oriented to time HEENT normocephalic, head/scalp atraumatic and moist oral mucous membranes Eyes PERRL, EOMs intact bilaterally and conjunctivae normal Neck supple, no JVD, thyroid normal and no carotid bruits General: trachea midline Resp normal respiratory effort, no retractions, no use of accessory muscles and clear to auscultation bilaterally Auscultation: Negative for rales, rhonchi or wheezes Cardio regular rate, regular rhythm, S1 normal heart sound, S2 normal heart sound, no murmurs, no rub and no gallops GI normal to inspection, nondistended, normoactive bowel sounds, soft to palpation, non-tender and non-distended Extremity no clubbing, cyanosis or edema Skin no rashes or lesions noted General Skin Exam: no breakdown Neuro oriented x3, CN's II-XII intact bilaterally, no focal motor deficits and no sensory deficits noted Sensorium / Orientation: awake and alert Speech: speech normal Psych affect normal Assessment & Plan Assessment/Plan (1) Hypoxia: PLAN: Plan 1. Hypoxia-etiology unclear at this point, again I have elected to take the patient off antibiotics for now, she has no signs or symptoms of pneumonia, she will have an echocardiogram performed tomorrow, there was a pericardial effusion noted on the CT of the chest, echocardiogram will be able to ascertain whether this is a significant finding. #2 generalized weakness-patient will be seen by PT and OT #3 chronic anticoagulation-patient takes Eliquis as an outpatient-this is due to the patient having Leiden factor V #4 osteoporosis-patient is on calcium and vitamin D, she also gets Prolia injections #5 possible pericardial effusion-patient will get an echocardiogram performed tomorrow. Total clinical time spent by myself addressing the patient's medical issues, reviewing all of her data, and collaborating with patient's care team: 35-minutes Charges/Coding Visit Charges Inpatient E&M: 34208 Subs Hosp L2
[2023-04-21] MEDS: Mirtazapine 15 MG Tablet 7.5 MG PO (20:53)
[2023-04-22] VITALS (11 sets, daily range): BP systolic 104–121; BP diastolic 48–61; PULSE 64–89; RESP 16–20; TEMP 36.4–37; O2SAT 88–97
[2023-04-22] MEDS: Ipratropium/Albuterol Sulfate 3 ML AMPUL.NEB INHALATION ×3 (01:41→12:50)
[2023-04-22 03:28] LABS: Absolute Lymphocyte Count 2.45 X10^3/uL (0.83-4.51); Absolute Neutrophil Count 4.2 X10^3/uL (2.0-7.7); Basophil# 0.04 X10^3/uL; Basophil% 0.5 % (0-1); Eosinophil# 0.17 X10^3/uL; Eosinophils% 2.2 % (0-5); Hematocrit 33.7 % (37-47); Hemoglobin 10.7 g/dL (12.0-15.0); Lymphocyte # 2.45 X10^3/ul (0.83-4.51); Lymphocyte % 31.5 % (19-41); Mean Corp Hgb Conc 31.8 g/dL (32-36); Mean Corpuscular Hgb 31.4 pg (27.0-32.0); Mean Corpuscular Volume 98.8 fL (81-99); Mean Platelet Vol. 10.1 fl (6.2-12.0); Monocyte# 0.91 X10^3/uL; Monocyte% 11.7 % (0-10); NRBC Flagged by Analyzer 0 % (0-5); Neutrophil # 4.18 X10^3/uL (2.7-7.7); Neutrophil % 53.6 % (47-70); Platelet Count 190 K/mm3 (150-450); RBC Distribution Width CV 12.9 % (11.6-14.6); RBC Distribution Width SD 46.7 fl (35.1-43.9); Red Blood Count 3.41 M/mm3 (4.2-5.4); White Blood Count 7.8 K/mm3 (4.4-11.0)
[2023-04-22] MEDS: Pregabalin 50 MG Capsule PO (05:24)
[2023-04-22] MEDS: 0.9% Saline Lock 10 ML Syringe IV (05:24)
[2023-04-22] MEDS: APIXABAN 5 MG TABLET PO (10:27)
[2023-04-22] MEDS: guaiFENesin 600 MG Tablet PO (10:27)
[2023-04-22] MEDS: Furosemide 40 MG Tablet PO (10:27)
[2023-04-22] MEDS: Calcium (Elemental) 500 MG Tablet PO (10:28)
[2023-04-22] MEDS: Ensure Plus High Protein 120 ML LIQUID PO (10:28)
[2023-04-22] MEDS: Pantoprazole Sodium 40 MG Tablet PO (10:28)
--- NOTE | 2023-04-22 11:51 | CASEMGMT ---
SCOOTER NICK NOTE: Per Dr Barroso pt discharging home today. SCOOTER NICK to room. Pt states she has been weak and is now using a walker here in the hospital. She verifies she does have one @ home. Daughter @ bedside and states she and her sister plan on taking turns staying w/pt and someone will be w/her the next 1-2 weeks. Pt states is interested in HHC. 1st choice was [facility] and stated if they are unable to accept then she would take a list of other HHC options. Call to [facility] and they state pt is outside of their service area. D/C technical planner Sandra castillo, made aware and to give pt/dtr list of other HHC options. SCOOTER NICK did discuss SN w/HHC and dtr declines stating do not feel she needs a nurse to see her. Order placed for HHC: PT/OT. Ming COMBS RN, CM
--- NOTE | 2023-04-22 11:52 | CASEMGMT ---
Discharge Planning A list of?HH providers including quality and resource use data and consistent with the patient's preferred geographic region, medical needs, and insurance network were printed and provided from the [employer] Guide. Sandra Albright, Discharge Planning Asst.
[2023-04-22] MEDS: Cholecalciferol (VIT D3) 25 MCG TABLET (1,000 UNITS) 100 MCG PO (11:57)
[2023-04-22] MEDS: HYDROcodone Bitartrate/Apap 5/325 Tablet PO (11:58)
--- NOTE | 2023-04-22 12:11 | DCINST_ITS ---
Discharge Instructions Diet Discharge Diet: No restrictions Activity Discharge Activity: Return to Normal Activity Weight Bearing Status: Full weight bearing Follow Up Care Test Results: Test results from this visit will be discussed in further detail at your follow- up appointment, if applicable. Discharge Plan Admission Admit Date/Time: 04/21/23 00:20 Primary Reason for Your Visit: hypoxia Attending Provider: Fransisco Barroso Primary Care Provider: Corky Mensah Consulting Providers: Mariella Harris Discharge Orders/Prescriptions Prescriptions: Continued cholecalciferol (vitamin D3) 10 mcg (400 unit) capsule 5,000 unit PO DAILY pregabalin [Lyrica] 50 mg capsule 50 mg PO Q8H furosemide 40 mg tablet 40 mg PO DAILY Patient Comments: HAS NOT BEEN TAKING FOR LAST FEW DAYS 04/20/23 potassium chloride 20 mEq tablet extended release 20 meq PO DAILY ferrous sulfate-vitamin C 39-75 mg tablet 1 tab PO DAILY hydrocodone-acetaminophen 5-325 mg tablet 1 tab PO BID PRN (Reason: pain) Patient Comments: TAKES DAILY Eliquis 5 mg tablet 5 mg PO BID Qty: 180 2RF mirtazapine 7.5 mg tablet 7.5 mg PO QHS Qty: 90 3RF ketoconazole 2 % shampoo 1 applic topical 2XW Qty: 120 3RF benzonatate 200 mg capsule 200 mg PO TID PRN (Reason: cough) Qty: 20 0RF guaifenesin [Mucinex] 600 mg tablet extended release 12hr 600 mg PO BID Qty: 60 1RF fluticasone propionate [Flonase Allergy Relief] 50 mcg/actuation spray,suspension 2 spray intranasal DAILY Qty: 16 1RF Rx Instructions: administer into each nostril vitamin E (dl, acetate) 400 UNITS capsule 400 units PO DAILY vitamin B complex 1 EACH tablet 1 tab PO DAILY pantoprazole [Protonix] [address] for susp in packet 40 mg PO DAILY albuterol sulfate 2 puff inhalation PRN (Reason: shortness of breath or wheezing) zoledronic rheh-[id number]-[id number] [Reclast] 5 mg/100 mL piggyback IV .QYEAR calcium carbonate [Calcium 600] 600 mg calcium (1,500 mg) tablet 600 mg PO DAILY Prolia 60 mg/mL syringe 60 mg subcut [id number] Qty: 1 2RF Referrals / Follow Up: Corky Mensah MD [Primary Care Provider] - See Referral Note (In 2 to 3 weeks) Disposition Disposition (needs filled in before D/C Order can be placed): Home, Self Care
--- NOTE | 2023-04-22 12:14 | DS.PCM_ITS ---
Providers Date of Admission: 04/21/23 Date of Discharge: 04/22/23 Primary Care Physician: Dr. Corky Mensah MD Reason For Visit: CAP/HYPOXIA Diagnosis Discharge Diagnosis (1) Hypoxia: Status: Inactive Code(s): R09.02 - Hypoxemia Plan 1. Hypoxia-etiology unclear at this point, again I have elected to take the patient off antibiotics for now, she has no signs or symptoms of pneumonia, she will have an echocardiogram performed tomorrow, there was a pericardial effusion noted on the CT of the chest, echocardiogram will be able to ascertain whether this is a significant finding. #2 generalized weakness-patient will be seen by PT and OT #3 chronic anticoagulation-patient takes Eliquis as an outpatient-this is due to the patient having Leiden factor V #4 osteoporosis-patient is on calcium and vitamin D, she also gets Prolia injections Total clinical time spent by myself addressing the patient's medical issues, reviewing all of her data, and collaborating with patient's care team: 35-mi nutes Medications at Discharge Home Medications vitamin E (dl, acetate) 180 mg (400 unit) capsule 400 units PO DAILY Supplement 10/13/13 vitamin B complex 1 tab PO DAILY supplement 10/05/18 cholecalciferol (vitamin D3) 10 mcg (400 unit) capsule 5,000 unit PO DAILY Supplement 09/05/22 ferrous sulfate-vitamin C 39 mg-75 mg tablet 1 tab PO DAILY 09/05/22 furosemide 40 mg tablet 40 mg PO DAILY 09/05/22 hydrocodone-acetaminophen 5-325mg 5mg-325mg 1 tab PO BID PRN pain 09/05/22 mirtazapine 7.5 mg tablet 7.5 mg PO QHS Sleep #90 tabs 09/05/22 ketoconazole 2 % shampoo 1 applic topical 2XW #120 mL 03/06/23 denosumab 60 mg/mL subcutaneous syringe (Prolia) 60 mg subcut [id number] #1 mL 03/20/23 pregabalin 50 mg capsule (Lyrica) 50 mg PO Q8H Burning in left leg 03/20/23 benzonatate 200 mg capsule 200 mg PO TID PRN cough #20 caps 04/07/23 albuterol sulfate 2 puff inhalation PRN shortness of breath or wheezing 04/20/23 pantoprazole 40 mg granules delayed-release for susp in packet (Protonix) 40 mg PO DAILY 04/20/23 zoledronic acid 5 mg/100 mL in mannitol 5 %-water intravenous piggybck (Reclast) ea IV .QYEAR 04/20/23 calcium carbonate 600 mg calcium (1,500 mg) tablet (Calcium) 600 mg PO DAILY SUPPLEMENT 04/21/23 apixaban 5 mg tablet (Eliquis) 5 mg PO BID #180 tabs 04/24/23 potassium chloride 20 mEq tablet,extended release 20 meq PO DAILY #90 tabs 04/24/23 Hospital Course Operations None Procedures 2-D Echocardiogram Summary of Care Provided Minutes Spent on Discharge: 31 Hospital Course: 77-year-old white female was seen in the emergency room at [facility] complaining of 3 weeks of generalized illness. Patient tested positive for COVID 19 2 weeks prior, she stated that she has not been feeling well for 3 weeks however. Patient's family stated the patient was not eating or drinking normally and she was becoming more weak. Patient complained of fevers and chills. She had been placed on Decadron as an outpatient after the COVID-19 was diagnosed. She was not put on Paxlovid. Lab obtained in the emergency room showed a slightly elevated white blood cell count at 12.9, chemistry profile was unremarkable, and urinalysis was unremarkable. Patient's chest x-ray showed no acute cardiopulmonary process brain CT was performed which was unremarkable, chest CT was unremarkable except for possible pericardial effusion. Patient was given a liter of fluid in the emergency room, she remained ill-appearing and she was admitted to [facility] with mild hypoxia and leukocytosis. Initially she was placed on antibiotics due to concerns of possible pneumonia- this examiner did not feel the patient had pneumonia and stop the antibiotics. Patient's respiratory panel was unremarkable, strep pneumo and Legionella antigens were negative and blood cultures were negative. Patient was weaned off oxygen in the hospital. The exact reason for the patient's hypoxia was not determined. Patient had an echocardiogram performed which did not show a significant pericardial effusion. Patient's ejection fraction was normal. On 04/22/2023, patient was seen and examined: On examination she appeared in good health and spirits, she does not appear to be in any distress. Vital signs as documented. Skin warm and dry and without overt rashes. Neck without JVD, thyroid appears normal, trachea is midline, neck is supple. Lungs clear, normal air movement was noted. Heart exam notable for regular rhythm, normal sounds and absence of murmurs, rubs or gallops. Abdomen unremarkable and without evidence of organomegaly, masses, or abdominal aortic enlargement, bowel sounds are present in all 4 quadrants, no abdominal tenderness was noted. Extremities nonedematous, no cyanosis was noted, no clubbing was noted. Neuro: Cranial nerves II through XII are grossly intact, no focal motor deficits were noted, sensation to light touch and pinprick is intact, motor exam 5/5 throughout. Psych: Patient is alert and oriented x3, she does not appear anxious or depressed, she does not appear agitated. Patient appeared stable for discharge home on 04/22/2023. Weight / BMI Weight Weight: 65.8 kg Body Mass Index (BMI) 30.3 ABG / Lab / Microbiology Data 04/22/23 03:20 04/21/23 05:35 Laboratory: Laboratory Results - last 24 hr 04/22/23 03:20: WBC 7.8, RBC 3.41 L, Hgb 10.7 L, Hct 33.7 L, MCV 98.8, MCH 31.4, MCHC 31.8 L, RDW Std Deviation 46.7 H, RDW Coeff of Mallika 12.9, Plt Count 190, MPV 10.1, Immature Gran % (Auto) 0.500, Neut % (Auto) 53.6, Lymph % (Auto) 31.5, [place] % (Auto) 11.7 H, Eos % (Auto) 2.2, Baso % (Auto) 0.5, Absolute Neuts (auto) 4.2, Absolute Lymphs (auto) 2.45, Nucleated RBC % 0 Microbiology: Microbiology 04/20/23 22:14 Urine, Clean Catch Legionella Antigen - Final 04/20/23 22:14 Urine, Clean Catch Streptococcus pneumoniae Antigen (M - Final 04/20/23 21:05 Mucosa - Nasopharyngeal Respiratory Panel (PCR) - Final D/C Instructions Discharge Diet: No restrictions Weight Bearing Status: Full weight bearing Meaningful Use Info Meaningful Use Diagnoses (Choose all that apply): None applicable Discharge Plan Admission Admit Date/Time: 04/21/23 00:20 Primary Reason for Your Visit: hypoxia Attending Provider: Fransisco Barroso Primary Care Provider: Corky Mensah Consulting Providers: Mariella Harris Discharge Orders/Prescriptions Prescriptions: Continued cholecalciferol (vitamin D3) 10 mcg (400 unit) capsule 5,000 unit PO DAILY pregabalin [Lyrica] 50 mg capsule 50 mg PO Q8H furosemide 40 mg tablet 40 mg PO DAILY Patient Comments: HAS NOT BEEN TAKING FOR LAST FEW DAYS 04/20/23 ferrous sulfate-vitamin C 39-75 mg tablet 1 tab PO DAILY hydrocodone-acetaminophen 5-325 mg tablet 1 tab PO BID PRN (Reason: pain) Patient Comments: TAKES DAILY mirtazapine 7.5 mg tablet 7.5 mg PO QHS Qty: 90 3RF ketoconazole 2 % shampoo 1 applic topical 2XW Qty: 120 3RF benzonatate 200 mg capsule 200 mg PO TID PRN (Reason: cough) Qty: 20 0RF vitamin E (dl, acetate) 400 UNITS capsule 400 units PO DAILY vitamin B complex 1 EACH tablet 1 tab PO DAILY pantoprazole [Protonix] [address] for susp in packet 40 mg PO DAILY albuterol sulfate 2 puff inhalation PRN (Reason: shortness of breath or wheezing) zoledronic snqz-gtsoalum-[id number] [Reclast] 5 mg/100 mL piggyback IV .QYEAR calcium carbonate [Calcium 600] 600 mg calcium (1,500 mg) tablet 600 mg PO DAILY Prolia 60 mg/mL syringe 60 mg subcut [id number] Qty: 1 2RF No Action potassium chloride 20 mEq tablet extended release 20 meq PO DAILY Qty: 90 2RF Eliquis 5 mg tablet 5 mg PO BID Qty: 180 2RF Referrals / Follow Up: Corky Mensah MD [Primary Care Provider] - See Referral Note (In 2 to 3 weeks) Disposition Disposition (needs filled in before D/C Order can be placed): Home Health Service Charges/Coding Visit Charges Inpatient E&M: 41586 Disch Hosp >30min
--- NOTE | 2023-04-22 13:26 | CASEMGMT ---
Discharge Planning HH referral sent via [facility] to [facility], [facility], and [facility]. [facility] has declined d/t being out of service area. Sandra Albright, Discharge Planning Asst.
--- NOTE | 2023-04-22 14:16 | CASEMGMT ---
Addendum entered by Sonia Harrison 04/22/23 14:27: Pt does not qualify for home O2. Original Note: SCOOTER NICK NOTE: Per Sandra, d/c senior materials planner business support assistant, [facility] able to accept pt for therapy but not able to do SOC until . However, [facility] is able to accept if SN is able to be added. SCOOTER NICK to room. Pt and daughter made aware. They state they do not feel SN is necessary and would like to have [facility] w/therapy only and are okay w/SOC on Thursday. Sandra made aware. Ming SORENSENN SCOOTER CM
--- NOTE | 2023-04-22 15:11 | CASEMGMT ---
Discharge Planning Discharge instructions sent to [facility] via [facility]. Sandra Albright, Discharge Planning Asst.
== END 2023-04-22 15:25 | disposition home health service (06) | DRG 206 ==
LOC: ED 21:13 → ICU 04-21 00:30
PROVIDERS: Nurse Practitioner; Admitting Provider Internal Medicine; Emergency Provider Emergency Medicine; PCP Internal Medicine; Visit Provider Internal Medicine
DX: R09.02 Hypoxemia (principal); D68.51 Activated protein C resistance; E11.40 Type 2 diabetes mellitus with diabetic neuropathy, unspecified; D72.829 Elevated white blood cell count, unspecified; E66.9 Obesity, unspecified; J47.9 Bronchiectasis, uncomplicated; F32.A Depression, unspecified; E78.00 Pure hypercholesterolemia, unspecified; K21.9 Gastro-esophageal reflux disease without esophagitis; U09.9 Post COVID-19 condition, unspecified; Z68.31 Body mass index [BMI] 31.0-31.9, adult; R50.9 Fever, unspecified; H91.90 Unspecified hearing loss, unspecified ear; G47.00 Insomnia, unspecified; R43.8 Other disturbances of smell and taste; M81.0 Age-related osteoporosis without current pathological fracture; R53.1 Weakness; G89.29 Other chronic pain; R53.81 Other malaise; Z79.01 Long term (current) use of anticoagulants; Z79.83 Long term (current) use of bisphosphonates; Z79.899 Other long term (current) drug therapy; Z86.711 Personal history of pulmonary embolism; Z87.891 Personal history of nicotine dependence
CPT/HCPCS: 70450; 71046; 71250; 80048; 80053; 81001; 83605; 83735; 84100; 84443; 84484; 85025; 87040; 87449; 87633; 87641; 93005; 93306; 94640; 94668; 97162; 97166; 97530; 97535; 97802; 99252; 99285; J7030; J7050; Q9957; A4216; C8929; G0463; J2405

== ENCOUNTER → 2023-06-08 | Outpatient (CLI) | payer MEDICARE, BC, SELFPAY ==
[2023-06-08 15:37] LABS: Absolute Lymphocyte Count 3.26 X10^3/uL (0.83-4.51); Absolute Neutrophil Count 4.9 X10^3/uL (2.0-7.7); Basophil# 0.03 X10^3/uL; Basophil% 0.3 % (0-1); Eosinophil# 0.19 X10^3/uL; Eosinophils% 2.1 % (0-5); Hematocrit 41.1 % (37-47); Hemoglobin 13.6 g/dL (12.0-15.0); Lymphocyte # 3.26 X10^3/ul (0.83-4.51); Lymphocyte % 35.5 % (19-41); Mean Corp Hgb Conc 33.1 g/dL (32-36); Mean Corpuscular Hgb 32.4 pg (27.0-32.0); Mean Corpuscular Volume 97.9 fL (81-99); Mean Platelet Vol. 10.8 fl (6.2-12.0); Monocyte# 0.73 X10^3/uL; NRBC Flagged by Analyzer 0 % (0-5); Neutrophil # 4.91 X10^3/uL (2.7-7.7); Neutrophil % 53.4 % (47-70); Platelet Count 269 K/mm3 (150-450); RBC Distribution Width CV 12.9 % (11.6-14.6); RBC Distribution Width SD 46.3 fl (35.1-43.9); White Blood Count 9.2 K/mm3 (4.4-11.0)
[2023-06-08 17:00] LABS: Anion Gap 8 (5-15); BUN 17 mg/dL (7-18); Calcium,Total 8.9 mg/dL (8.5-10.1); Chloride 102 mmol/L (98-107); Creatinine, Serum 0.89 mg/dL (0.55-1.02); EST Glomerular Filtration Rate 65 mL/min (>60); Est Glom Filt Rate - Afr Amer 78 mL/min (>60); Glucose 104 mg/dL (74-106); Potassium 4.2 mmol/L (3.5-5.1); Sodium Level 137 mmol/L (136-145)
== END | disposition home or self-care (01) ==
LOC: BIMLAB 13:52
PROVIDERS: PCP Internal Medicine; Referring Provider Internal Medicine; Visit Provider Internal Medicine
DX: R73.03 Prediabetes (principal)
CPT/HCPCS: 36415; 80048; 83036; 85025

== ENCOUNTER → 2023-07-24 | Outpatient (CLI) | payer MEDICARE, BC, SELFPAY ==
[2023-07-24 12:29] LABS: Hematocrit 42.6 % (37-47); Hemoglobin 13.9 g/dL (12.0-15.0); Mean Corp Hgb Conc 32.6 g/dL (32-36); Mean Corpuscular Hgb 31.7 pg (27.0-32.0); Mean Platelet Vol. 10.9 fl (6.2-12.0); Platelet Count 264 K/mm3 (150-450); RBC Distribution Width CV 12.3 % (11.6-14.6); Red Blood Count 4.39 M/mm3 (4.2-5.4); White Blood Count 8.8 K/mm3 (4.4-11.0)
[2023-07-24 12:50] LABS: Anion Gap 6 (5-15); BUN 11 mg/dL (7-18); BUN/Creat Ratio 15.5 RATIO (10-20); Calcium,Total 9.4 mg/dL (8.5-10.1); Chloride 101 mmol/L (98-107); Creatinine, Serum 0.71 mg/dL (0.55-1.02); EST Glomerular Filtration Rate 85 mL/min (>60); Est Glom Filt Rate - Afr Amer 102 mL/min (>60); Glucose 87 mg/dL (74-106); Potassium 4.7 mmol/L (3.5-5.1); Sodium Level 137 mmol/L (136-145)
== END | disposition home or self-care (01) ==
LOC: BIMLAB 10:17
PROVIDERS: PCP Internal Medicine; Visit Provider Nurse Practitioner
DX: N39.0 Urinary tract infection, site not specified (principal); F32.9 Major depressive disorder, single episode, unspecified; R39.15 Urgency of urination
CPT/HCPCS: 36415; 80048; 85027; 87086

== ENCOUNTER → 2024-01-21 | Outpatient (CLI) | payer MEDICARE, BC, SELFPAY ==
--- NOTE | 2024-01-21 12:13 | BI_ITS ---
MAMMOGRAPHY - BILATERAL SCREENING REASON FOR EXAM: Female, 78 years old. Routine annual screening examination. PERTINENT HISTORY: Sister with breast cancer. TECHNIQUE: Digital bilateral breast trang (3D mammographic acquisition) in the CC and MLO projections. 2-D mediolateral oblique (MLO) and craniocaudad (CC) views of both breasts were obtained. CAD: Full Field Digital Mammography with Computer Added Detection was performed. COMPARISON: Comparison is made with prior study of September 25, 2022 and August 07, 2018. FINDINGS: Breast Composition: There are scattered areas of fibroglandular density. Since prior study, there has been increase in number microcalcifications in the central lateral aspect of the right breast. The patient will be recalled for additional views including magnification spot views. Stable bilateral secretory calcifications. No other significant abnormalities are identified. BI/SCRN MAMM (CAD)W/TRANG BILAT IMPRESSION: Increase in the number of microcalcifications in the central lateral aspect of the right breast as described. The patient will be recalled for additional views including magnification spot views. ASSESSMENT CATEGORY: BIRADS Category 0: Incomplete. Need additional imaging evaluation. A letter regarding these results will be sent to the patient by the facility within 30 days. Approximately 10% of breast cancers are not detected by mammography. A normal mammogram should not delay biopsy of a clinically suspicious abnormality. [id number] Electronically Signed: Leonides Manriquez MD at 13:49 EDT ,
--- OUTSIDE RECORDS SUMMARY | 2024-01-21 16:39 | XMS RPT_ITS | CCD ---
Author Organization [facility] Care Team Providers Care Furnace Firer Name Role Phone Stacie Madera Rickey Unavailable Unavailable Cecil RN, Bianca Gibson Unavailable [phone] SUZANNE BOB Unavailable Unavailable SYSTEM, PROVIDER NOT IN Unavailable Unavaila ble DeFinis, Harumi Y Unavailable Unavailable DeFinis, Harumi Y Unavailable Unavailable KRAIG VIDALES Admitting Unavailable KRAIG VIDALES Referring Unavailable KEN PATTEN Attending Unavailable Allergies Allergy Classification Reported Allergen(s) Allergy Type Date of Onset Reaction(s) Facility (5 sources) castor oil; Translations: [CASTOR OIL] drug allergy 09-03-2015 [facility] Work Phone: (4 sources) frovatriptan drug allergy 09-03-2015 [facility] Work Phone: (5 sources) iodine; Translations: [IODINE] drug allergy 03-04-2011 [facility] Work Phone: (4 sources) SUMAtriptan drug allergy 09-03-2015 [facility] Work Phone: (4 sources) VIT E SOLUTION drug allergy 09-03-2015 [facility] Work Phone: (1 source) frovatriptan; Translations: [FROVATRIPTAN] Drug Allergy 02-12-2017 [facility] (1 source) SUMAtriptan; Translations: [SUMATRIPTAN SUCCINATE] Drug Allergy 02-12-2017 [facility] (1 source) vitamin E; Translations: [VITAMIN E (BULK)] Drug Allergy 02-12-2017 [facility] Medications Completed/Discontinued Medications Medication Drug Class(es) Dates Sig (Normalized) Sig (Original) acetaminophen / HYDROcodone (12 sources) Opioid Agonist Start: 01-26-2013 HYDROCODONE-ACETAMI NOPHEN 5-500 MG TABS as needed HYDROCODONE-ACETAMI NOPHEN [id number] Jose E Soria MD Start: 03-05-2011 VICODIN 5-500 MG TABS as needed HYDROCODONE-ACETAMINOPHEN [id number] Jose E Soria MD Start: 03-05-2011 End: 02-09-2014 VICODIN 5-500 MG TABS as nee ded HYDROCODONE-ACETAMINOPHEN [id number] Jose E Soria MD almotriptan 12.5 mg oral tablet (8 sources) Serotonin-1b and Serotonin-1d Receptor Agonist Start: 03-05-2011 End: 02-09-2014 AXERT 12.5 MG TABS as needed for migraine headache ALMOTRIPTAN MALATE [id number] Jose E Soria MD amoxicillin 500 mg / clavulanate 125 mg oral tablet (8 sources) Penicillin-class Antibacterial Start: 01-26-2013 End: 02-09-2014 take 1 tablet by mouth twice daily AUGMENTIN 500-125 MG TABS One tablet by mouth twice daily as directed AMOXICILLIN-POT CLAVULANATE [id number] Jose E Soria MD Start: 01-26-2013 take 1 tablet by benjie th twice daily AUGMENTIN 500-125 MG TABS One tablet by mouth twice daily as directed AMOXICILLIN-POT CLAVULANATE [id number] Jose E Soria MD Start: 01-26-2013 End: 02-09-2014 take 1 tablet by mouth twice daily AUGMENTIN 500-125 MG TABS One tablet by mouth twice daily as directed AMOXICILLIN-POT CLAVULANATE [id number] Jose E Soria MD aspirin 81 mg delayed release oral tablet (8 sources) Nonsteroidal Anti-inflammatory Drug Start: 03-04-2011 End: 01-26-2013 take 1 tablet by mouth once daily ECOTRIN LOW STRENGTH 81 MG TBEC One tablet by mouth daily ASPIRIN [id number] Amisha Vang RN Start: 03-04-2011 End: 01-26-2013 take 1 tablet by mouth once daily ECOTRIN LOW STRENGTH 81 MG TBEC One tablet by mouth daily ASPIRIN [id number] Jose E Soria MD atorvastatin 80 mg oral tablet (8 sources) HMG-CoA Reductase Inhibitor Start: 03-04-2011 End: 09-01-2011 take 1 tablet by mouth once daily LIPITOR 80 MG TABS One tablet by mouth daily ATORVASTATIN CALCIUM [id number] Jose E Soria MD ONABOTULINUMTOXINA SOLR (4 sources) Acetylcholine Release Inhibitor Start: 02-09-2014 BOTOX SOLR every 3 months for migraines ONABOTULINUMTOXINA SOLR [id number] Jose E Soria MD Start: 02-09-2014 End: 09-03-2015 BOTOX SOLR every 3 months fo r migraines ONABOTULINUMTOXINA SOLR [id number] Jose E Soria MD calcium carbonate 1500 mg / cholecalciferol 200 unt oral tablet (4 sources) Vitamin D Start: 03-04-2011 End: 09-01-2016 take 1 tablet by mouth once daily CALCIUM + D 600-200 MG-UNIT TABS One tablet by mouth daily CALCIUM CARBONATE-VITAMIN D [id number] Jose E Soria MD calcium carbonate / vitamin D (3 sources) Start: 03-04-2011 End: 09-01-2016 take 1 tablet by mouth once daily CALCIUM + D 600-200 MG-UNIT TABS One tablet by mouth daily CALCIUM CARBONATE-VITAMIN D [id number] Jose E Soria MD Start: 03-04-2011 take 1 tablet by benjie th once daily CALCIUM + D 600-200 MG-UNIT TABS One tablet by mouth daily CALCIUM CARBONATE-VITAMIN D [id number] Amisha Vang RN cholecalciferol 1000 unt oral capsule (3 sources) Vitamin D Start: 09-01-2016 take 1 tablet by mouth once daily VITAMIN D3 1000 UNIT CAPS One tablet by mouth daily CHOLECALCIFEROL [id number] Jose E Soria MD citalopram 20 mg oral tablet (8 sources) Serotonin Reuptake Inhibitor Start: 03-04-2011 End: 09-01-2011 take 1 tablet by mouth once daily CELEXA 20 MG TABS One tablet by mouth daily CITALOPRAM HYDROBROMIDE [id number] Jose E Soria MD clonazePAM 0.5 mg oral tablet (20 sources) Benzodiazepine Start: 03-04-2011 End: 03-05-2012 CLONAZEPAM 0.5 MG TABS as needed CLONAZEPAM [id number] Jose E Soria MD Start: 03-04-2011 End: 03-05-2012 take 1 tablet by mouth once daily CLONAZEPAM 0.5 MG TABS One tablet by mouth daily CLONAZEPAM [id number] Jose E Soria MD gabapentin 100 mg oral capsule (12 sources) Anti-epileptic Agent Start: 01-26-2013 End: 09-03-2015 take 1 tablet by mouth once daily GABAPENTIN 100 MG CAPS One tablet by mouth daily GABAPENTIN [id number] Jose E Soria MD hyoscyamine sulfate 0.125 mg oral tablet (8 sources) Start: 03-05-2011 End: 09-01-2011 HYOSCYAMINE SULFATE 0.125 MG TABS 1 tablet by mouth as needed HYOSCYAMINE SULFATE [id number] Jose E Soria MD meloxicam 15 mg oral tablet (8 sources) Nonsteroidal Anti-inflammatory Drug Start: 03-05-2012 End: 02-09-2014 MELOXICAM 15 MG TABS One-half tablet by mouth as needed MELOXICAM [id number] Jose E Soria MD naratriptan 2.5 mg oral tablet (4 sources) Serotonin-1b and Serotonin-1d Receptor Agonist Start: 01-26-2013 take 1 tablet by mouth once daily as needed NARATRIPTAN HCL 2.5 MG TABS One tablet by mouth daily as needed NARATRIPTAN HCL [id number] Jose E Soria MD nortriptyline 50 mg oral capsule (4 sources) Tricyclic Antidepressant Start: 01-26-2013 take 1 tablet by mouth once daily NORTRIPTYLINE HCL 50 MG CAPS One tablet by mouth daily NORTRIPTYLINE HCL [id number] Jose E Soria MD omeprazole 40 mg delayed release oral capsule (19 sources) Proton Pump Inhibitor Start: 09-01-2016 take 1 tablet by mouth once daily OMEPRAZOLE 40 MG CPDR One tablet by mouth daily OMEPRAZOLE [id number] Jose E Soria MD Start: 01-26-2013 End: 09-03-2015 take 1 tablet by mouth once daily OMEPRAZOLE 40 MG CPDR One tablet by mouth daily OMEPRAZOLE [id number] Jose E Soria MD Start: 03-04-2011 End: 09-01-2011 take 1 tablet by mouth once daily as needed PRILOSEC 40 MG CPDR One tablet by mouth daily as needed OMEPRAZOLE [id number] Amisha Vang RN ONABOTULINUMTOXINA SOLR (4 sources) Start: 02-09-2014 BOTOX SOLR dawn ry 3 months for migraines ONABOTULINUMTOXINA SOLR [id number] Jose E Soria MD Start: 02-09-2014 End: 09-03-2015 BOTOX SOLR every 3 months fo r migraines ONABOTULINUMTOXINA SOLR [id number] Jose E Soria MD ondansetron 4 mg oral tablet (4 sources) Serotonin-3 Receptor Antagonist Start: 09-03-2015 ZOFRAN 4 MG TABS As needed ONDANSETRON HCL [id number] Jose E Soria MD Start: 09-03-2015 ZOFRAN 4 MG TA BS As needed ONDANSETRON HCL 71754975001 Jose E Soria MD predniSONE 10 mg oral tablet (8 sources) Corticosteroid Start: 01-26-2013 End: 02-09-2014 PREDNISONE 10 MG TABS x 7 days PREDNISONE [id number] Jose E Soria MD raNITIdine 300 mg oral tablet (7 sources) Histamine-2 Receptor Antagonist Start: 09-03-2015 End: 09-01-2016 take 1 tablet by mouth once daily ZANTAC 300 MG TABS One tablet by mouth daily RANITIDINE HCL [id number] Jose E Soria MD vitamin b 12 1 mg oral tablet (8 sources) Vitamin B12 Start: 03-05-2012 End: 09-03-2015 take 1 tablet by mouth once daily VITAMIN B-12 1000 MCG TABS One tablet by mouth daily CYANOCOBALAMIN [id number] Jose E Soria MD B COMPLEX VITAMINS (4 sources) Start: 03-04-2011 take 1 tablet by mouth once daily VITAMIN B COMPLEX TABS One tablet by mouth daily B COMPLEX VITAMINS [id number] Amisha Vang RN vitamin e 400 unt oral capsule (4 sources) Start: 03-04-2011 take 1 tablet by mouth once daily VITAMIN E 400 UNIT CAPS One tablet by mouth daily VITAMIN E [id number] Amisha Vang RN warfarin sodium 5 mg oral tablet (4 sources) Vitamin K Antagonist Start: 08-25-2011 COUMADIN 5 MG TABS Take as directed WARFARIN SODIUM [id number] Perri Talbert RN Problems Active Problems Problem Classification Problem Date [...] 09-01-2011 Episodic Unclassified (1 source) Dysuria / 099005() Onset: 02-12-2017 Unclassified (1 source) Knee Pain / [id number]() Onset: 02-12-2017 Unclassified (1 source) Unknown / [...] Results Test Name Value Interpretation Reference Range Facility [facility] 03-05-2022 [facility] DCP Update: Pt r emains on H6 for continued care of T3-T8 epidural hematoma in setting of + Factor V Leiden. Clinical Updates: Cont to hold DVT prophylaxis and NSAIDs. Pt up ambulating in halls, pt has declined need for Home Health PT/OT. Discharge Plan: Home with FWW (delivered) Discharge obstacles: None TCC will continue to follow. [facility] Progress Noteon 03-05-2022 Progress Note Discharge instructio ns given to pt. Scripts given to pt. Pt verbalizes understanding. IV removed without complications. Daughter gathered belongings and will drive pt home. Normal [facility] Progress Note Adult Orthopaedic Sp ine Service Patient Name: Nneka Montgomery Date of : 1945 Date: 03/05/22 Assessment: 76 y.o. female with thoracic epidural hematoma T3-T8 Plan: -Please continue to hold all chemical DVT prophylaxis at this time. Please do not give patient NSAIDs -Every 6 hour nursing neuro examination -Hold DVT ppx at this time for to reduce risk of epidural hematoma progression -MWF ortho checks -Okay for diet from orthopedic surgery standpoint -Okay to be weightbearing as tolerated -Neurovascular checks -Ortho to follow. Patient is okay for discharge from spine standpoint as long as medically stable. Please reach out to the on-call orthopedic surgery resident and additional questions or concerns Subjective: NAEO. Patient has no mid or low back pain. Denies any bowel/bladder incontinence. Medications: acetaminophen, 1,000 mg, Oral, TID cholecalciferol, 2,000 Units, Oral, Daily furosemide, 40 mg, Oral, Daily influenza, 0.5 mL, IntraMUSCular, Prior to discharge mirtazapine, 37.5 mg, Oral, Nightly pantoprazole, 40 mg, Oral, Nightly polyethylene glycol (PEG) 3350, 17 g, Oral, Daily potassium chloride CR, 40 mEq, Oral, Daily pregabalin, 50 mg, Oral, TID sennosides, 2 tablet, Oral, BID Physical Exam: Vitals: 03/04/22 2148 BP: 129/60 Pulse: 66 Resp: 16 Temp: 37.1 ?C (98.8 ?F) SpO2: 95% Intake and Output Summary (Last 24 hours) at Date Time No intake or output data in the 24 hours ending 03/05/22724 Spine Exam: * Exam was limited due to pain: No HF KE DF EHL PF RLE 5 5 5 5 5 Sensation: Intact L2-S1 with normal sensation Pulses: DP Palpable PT Palpable Pain w Straight leg raise: No HF KE DF EHL PF LLE 5 5 5 5 5 Sensation: Intact L2-S1 with normal sensation Pulses: DP Palpable PT Palpable Pain w Straight leg raise: No Labs: Lab Results Component Value Date HGB 11.6 (L) 03/02/2022 and Lab Results Component Value Date GLUCOSE 100 03/02/2022 CALCIUM 8.8 03/02/2022 NA 134 (L) 03/02/2022 K 4.6 03/02/2022 CO2 32 (H) 03/02/2022 CL 101 03/02/2022 BUN 20 (H) 03/02/2022 CREATININE 0.73 03/02/2022 [facility] [id number] 03-04-2022 [id number] Spoke to patient and family member regarding home care therapy services. Pt politely declined home therapy, states she has been getting up and walking, doesn't feel that is needed now. Discussed DME, pt would like FWW for home. DME order placed and Stephan from [facility] informed and will deliver to pt's room. PACC signing off. [facility] Progress Noteon 03-04-2022 Progress Note Occupational Therapy Facility/Department: Occupational Therapy Treatment NAME: Nneka Montgomery : 1945 Date of Service: 03/04/2022 Discharge Recommendations: 24 hour supervision or assist, Home with Home health OT Assessment Assessment: Progressing toward goals. Suggest home with initial 24 hour assist from family, HHC. FWW was delivered to pt's room today. Subjective Subjective Subjective: Pt amb in room, pushing bedside table into place so she can get back in bed. Agrees to OT. Daughter present and supportive. 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 Bed mobility Sit to Supine: Supervision Transfers Stand to sit: Supervision Plan Plan Comment: Cont OT per POC Safety Left in bed, call light in reach AM-PAC Score AM-PAC Inpatient Daily Activity Raw Score: 23 ADL Inpatient CMS G-Code Modifier: CI Goals Encounter Problems Encounter Problems (Active) Balance Demo good standing balance x10 mins during functional activity (Progressing) Start: 02/28/22 Dressings Lower Extremities Patient will dress lower body modif indep (Progressing) Start: 02/28/22 Grooming Patient will complete daily grooming tasks modif indep standing at sink (Not Addressed) Start: 02/28/22 Toileting Demo Indep toileting (Not Addressed) Start: 02/28/22 Transfers Modif indep toilet transfer (Not Addressed) Start: 02/28/22 Education Therapy Time Individual Co-treatment Time In 1430 Time Out 1440 Minutes 10 Timed Code Treatment Minutes: (Self--1) MARTHA Pedersen [facility] Progress Note Nutrition update completed. Chart reviewed. Patient to be monitored and followed by the diet gyroscopic engineering technician. GABRIELLA Donis [facility] [id number] 03-03-2022 [id number] Sanforizer following case for Discharge Needs. [facility] CARECOORDon 03-03-2022 [facility] 76 yo pt transferred to H6 from T2 on 03/01 for continued care of T3-T8 epidural hematoma w/Factor V leiden history. Reg diet. PT/OT ordered, no new notes since here on H6. Last PT notes rec was for Home w/HH PT. Clinical Updates: Hold DVT prophylaxis Discharge Plan: Home, independent vs Home w/HH PT. HC-L following. Discharge obstacles TCC will continue to follow. [facility] Progress Noteon 03-03-2022 Progress Note Discussed transfer o f patient care to Dr Bush. They accepted. Normal [facility] Progress Note Adult Orthopaedic Sp ine Service Patient Name: Nneka Montgomery Date of : 1945 Date: 03/03/22 Assessment: 76 y.o. female with thoracic epidural hematoma T3-T8 Plan: - transferred to general ortho floor -Please continue to hold all chemical DVT prophylaxis at this time. Please do not give patient NSAIDs -Every 6 hour nursing neuro examination -Hold DVT ppx at this time for to reduce risk of epidural hematoma progression -Daily ortho checks -Okay for diet from orthopedic surgery standpoint -Okay to be weightbearing as tolerated -Neurovascular checks -Ortho to follow. Please reach out to the on-call orthopedic surgery resident and additional questions or concerns Subjective: NAEO. Patient has some mild back pain that improved overnight. Denies any numbness/paresthesias, radicular pain or muscle weakness. Patient had bowel movement yesterday. Denies any bowel/bladder incontinence. Medications: acetaminophen, 1,000 mg, Oral, TID cholecalciferol, 2,000 Units, Oral, Daily furosemide, 40 mg, Oral, Daily influenza, 0.5 mL, IntraMUSCular, Prior to discharge mirtazapine, 37.5 mg, Oral, Nightly pantoprazole, 40 mg, Oral, Nightly polyethylene glycol (PEG) 3350, 17 g, Oral, Daily potassium chloride CR, 40 mEq, Oral, Daily pregabalin, 50 mg, Oral, TID sennosides, 2 tablet, Oral, BID Physical Exam: Vitals: 03/02/22 2030 BP: 129/62 Pulse: 73 Resp: 16 Temp: 37.1 ?C (98.8 ?F) SpO2: 94% Intake and Output Summary (Last 24 hours) at Date Time No intake or output data in the 24 hours ending 03/03/22 0652 Spine Exam: * Exam was limited due to pain: No HF KE DF EHL PF RLE 5 5 5 5 5 Sensation: Intact L2-S1 with normal sensation Pulses: DP Palpable PT Palpable Pain w Straight leg raise: No HF KE DF EHL PF LLE 5 5 5 5 5 Sensation: Intact L2-S1 with normal sensation Pulses: DP Palpable PT Palpable Pain w Straight leg raise: No Labs: Lab Results Component Value Date HGB 11.6 (L) 03/02/2022 and Lab Results Component Value Date GLUCOSE 100 03/02/2022 CALCIUM 8.8 03/02/2022 NA 134 (L) 03/02/2022 K 4.6 03/02/2022 CO2 32 (H) 03/02/2022 CL 101 03/02/2022 BUN 20 (H) 03/02/2022 CREATININE 0.73 03/02/2022 Normal [facility] Progress Note ------ -- Attestation signed by Dipika Brown MD at 03/03/2022 10:40 AM ~~~~~~~~~~~~~~~~~~~~~~~~~~ ~~~~~~~~~~~~~~~~~~~~~~~~~~ ~~~~~~~~~ ATTENDING ADDENDUM Patient Active Problem List Diagnosis Epidural hematoma Factor V Leiden mutation (CMS/HCC) (HCC) I personally supervised the ZONING ENGINEER/ANNIE in the evaluation and development of a treatment plan for this patient on the same day of service as above. I personally discussed the review of systems and interviewed the patient along with performing a physical examination. In addition, I discussed the patient's condition and treatment options with him/her when possible. All of the patient's questions were answered and family updated when appropriate and possible. I I performed a physical exam and ROS on the same date of service as above. My findings agree with the above note except for any details corrected below. -Per Asim Hendricks APRN-SET STAFF FITTER -Patient with a T3-8 epidural hematoma, hx of factor V leiden -Continue pain control with tylenol, pregabalin, PRN oxycodone -Home mirtazapine -Remains HDS -Pulm toilet -Diet as tolerated, bowel regimen ordered, no BM recorded -Voiding -No lab work -Patient with Factor V Leiden, hx of DVT/PE --> ortho spine with strict no anticoagulation, patient will likely need IVC filter placement -Transfer to medical service Greater than 51% of the >= 25 minute total care time throughout the day (including chart review, care coordination, and sntz-et-mdgp encounter) was spent discussing/counseling the patient/family regarding the care plan for Nneka Montgomery. I examined independently and reviewed relevant data myself and may have done so in the context of team rounds. A full chart review was performed. I attest that this medical record entry accurately reflects signatures/notations that I made in my capacity as M.D. when I treated/diagnosed Nneka Montgomery on the date of service above. I attest that this information is true, accurate, and complete to the best of my knowledge. Dipika Brown MD Department of Surgery Division of Trauma/Surgical Critical Care/Acute Care Surgery -- Daily SICU Progress Note SAMANTHA 03/03/2022 6:35 AM Admit Date: 02/27/2022 HOSPITAL DAY \4 HISTORY OF PRESENT ILLNESS: 76 year old female with history of factor V Leiden, hx of DVT and PE on coumadin presents as an emergent transfer from [place] ED to [facility] ICU for 13 cm epidural hematoma from [...] bilateral lower extremities, bowel or bladder incontinence. PROCEDURES: None CHIEF COMPLAINT: BACK PAIN PREVIOUS 24 HOUR EVENTS: NAEON Consults: None MEDICATIONS: Current Facility-Administered Medications: acetaminophen (Tylenol) tablet 1,000 mg, 1,000 mg, Oral, TID, Bianca Clark DO, 1,000 mg at 03/02/222034 cholecalciferol (Vitamin D-3) tablet 50 mcg, 2,000 Units, Oral, Daily, Bianca Clark DO, 50 mcg at 03/02/22932 furosemide (Lasix) tablet 40 mg, 40 mg, Oral, Daily, Bianca Clark DO, 40 mg at 03/02/22932 Influenza Vac A&B SA Adj quadrivalent (Fluad) vaccine 0.5 mL, 0.5 mL, IntraMUSCular, Prior to discharge, Bianca Clark DO mirtazapine (Remeron) tablet 37.5 mg, 37.5 mg, Oral, Nightly, MELANY Yu CNP, 37.5 mg at 03/02/222033 ondansetron ODT (Zofran-ODT) disintegrating tablet 4 mg, 4 mg, Oral, q8h PRN OR ondansetron (Zofran) injection 4 mg, 4 mg, IntraVENous, q6h PRN, Bianca Clark DO, 4 mg at 02/28/22842 oxyCODONE (Roxicodone) immediate release tablet 5 mg, 5 mg, Oral, q6h PRN, Bianca Clark DO, 5 mg at 03/02/222254 pantoprazole (ProtoNix) EC tablet 40 mg, 40 mg, Oral, Nightly, Bianca Clark DO, 40 mg at 03/02/222034 polyethylene glycol (PEG) 3350 (Miralax) packet 17 g, 17 g, Oral, Daily, MELANY Yu CNP potassium chloride CR (Klor-Con M10) ER tablet 40 mEq, 40 mEq, Oral, Daily, Bianca Clark DO, 40 mEq at 03/02/22932 pregabalin (Lyrica) capsule 50 mg, 50 mg, Oral, TID, Bianca Clark DO, 50 mg at 03/02/222033 sennosides (Senokot) tablet 17.2 mg, 2 tablet, Oral, BID, MELANY Yu CNP simethicone (Mylicon) drops 40 mg, 40 mg, Oral, PRN, Bianca Eduardo, DO sodium chloride 0.9 % infusion, 5-250 mL/hr, IntraVENous, PRN, Bianca Clark, DO ARE THERE PERTINENT UPDATES TO PAST,FAMILY, OR SOCIAL HISTORY?: No Subjec (more content not included)... [facility] Progress Noteon 03-02-2022 Progress Note [address] w Dr. Deysi crawford and trauma team. Recommend holding dvt ppx and anticoagulation given thoracic hematoma. The patient has history of Factor V Leiden w past blood clots. Typically take Warfarin which was last taken on 02/26. We understand the risks of DVT and PE with hold anticoagulation/dvt ppx however risk of progression of hematoma could lead to severe consequences including paralysis. The patient has been ambulating the halls frequently to decrease her risks of DVT. If concerned could discuss risks/benefits of IVC filter w patient. [facility] Progress Note Adult Orthopaedic Sp ine Service Patient Name: Nneka Montgomery Date of : 1945 Date: 03/02/22 Assessment: 76 y.o. female with thoracic epidural hematoma T3-T8 Plan: - transferred to general ortho floor -Please continue to hold all chemical DVT prophylaxis at this time. Please do not give patient NSAIDs -Every 6 hour nursing neuro examination -daily ortho checks -Okay for diet from orthopedic surgery standpoint -Ortho to reevaluate tomorrow -Okay to be weightbearing as tolerated -Neurovascular checks -Ortho to follow. Please reach out to the on-call orthopedic surgery resident and additional questions or concerns Subjective: NAEO. Transferred out of ICU yesterday. Doing well. Pain controlled. Ambulating in halls. Medications: acetaminophen, 1,000 mg, Oral, TID cholecalciferol, 2,000 Units, Oral, Daily furosemide, 40 mg, Oral, Daily influenza, 0.5 mL, IntraMUSCular, Prior to discharge pantoprazole, 40 mg, Oral, Nightly potassium chloride CR, 40 mEq, Oral, Daily pregabalin, 50 mg, Oral, TID Physical Exam: Vitals: 03/01/222032 BP: 122/56 Pulse: 68 Resp: 16 Temp: 36.6 ?C (97.9 ?F) SpO2: 91% Intake and Output Summary (Last 24 hours) at Date Time Intake/Output Summary (Last 24 hours) at 03/02/2022 0743 Last data filed at 03/01/2022 0800 Gross per 24 hour Intake 120 ml Output -- Net 120 ml Spine Exam: * Exam was limited due to pain: No HF KE DF EHL PF RLE 5 5 5 5 5 Sensation: Intact L2-S1 with normal sensation Pulses: DP Palpable PT Palpable Pain w Straight leg raise: No HF KE DF EHL PF LLE 5 5 5 5 5 Sensation: Intact L2-S1 with normal sensation Pulses: DP Palpable PT Palpable Pain w Straight leg raise: No Labs: Lab Results Component Value Date HGB 11.6 (L) 03/02/2022 and Lab Results Component Value Date GLUCOSE 100 03/02/2022 CALCIUM 8.8 03/02/2022 NA 134 (L) 03/02/2022 K 4.6 03/02/2022 CO2 32 (H) 03/02/2022 CL 101 03/02/2022 BUN 20 (H) 03/02/2022 CREATININE 0.73 03/02/2022 Rads: Radiological Procedure reviewed. Signed by: James Luther MD [facility] ECG 12-LEADon 03-01-2022 ECG 12-LEAD IMPRESSION: Sinus rhythm Borderline T abnormalities, anterior leads Electronically Signed On 03-01-2022 11:32:40 EST by Fransisco Villatoro [facility] [facility] Progress Noteon 03-01-2022 Progress Note Adult Orthopaedic Sp ine Service Patient Name: Nneka Montgomery Date of : 1945 Date: 03/01/22 Assessment: 76 y.o. female with thoracic epidural hematoma T3-T8 Plan: -We discussed the patient with Dr. Barreto this afternoon. She continues to have improvement of her pain and has no neurologic deficits or changes. From an Ortho standpoint, she is okay to leave the ICU and have every 6 neuro exam and neurochecks per nursing from an orthopedic surgery standpoint. We will continue nonoperative management with no plan for acute surgical intervention -Please continue to hold all chemical DVT prophylaxis at this time. Please do not give patient NSAIDs -Every 6 hour nursing neuro examination -Okay for diet from orthopedic surgery standpoint -Ortho to reevaluate tomorrow -Okay to be weightbearing as tolerated -Neurovascular checks -Ortho to follow. Please reach out to the on-call orthopedic surgery resident and additional questions or concerns Subjective: Doing well. Sitting up in the chair accompanied by her . States she was ambulating in the halls earlier today with minimal assistance. Pain controlled. No weakness. Tolerating diet. Medications: acetaminophen, 1,000 mg, Oral, TID cholecalciferol, 2,000 Units, Oral, Daily furosemide, 40 mg, Oral, Daily influenza, 0.5 mL, IntraMUSCular, Prior to discharge pantoprazole, 40 mg, Oral, Nightly potassium chloride CR, 40 mEq, Oral, Daily pregabalin, 50 mg, Oral, TID Physical Exam: Vitals: 03/01/22 1200 BP: Pulse: Resp: Temp: 36.4 ?C (97.6 ?F) SpO2: Intake and Output Summary (Last 24 hours) at Date Time Intake/Output Summary (Last 24 hours) at 03/01/2022 1316 Last data filed at 03/01/2022 0800 Gross per 24 hour Intake 120 ml Output 1300 ml Net -1180 ml Spine Exam: * Exam was limited due to pain: No SA EF WE EE WF GS HI RUE 5 4+ 5 5 5 5 5 Sensation: Intact C3-T1 with normal sensation in all distributions Radial pulse: Palpable SA EF WE EE WF GS HI LUE 5 4+ 5 5 5 5 5 Sensation: Intact C3-T1 with normal sensation in all distributions Radial pulse: Palpable HF KE DF EHL PF RLE 5 5 5 5 5 Sensation: Intact L2-S1 with normal sensation Pulses: DP Palpable PT Palpable Pain w Straight leg raise: No HF KE DF EHL PF LLE 5 5 5 5 5 Sensation: Intact L2-S1 with normal sensation Pulses: DP Palpable PT Palpable Pain w Straight leg raise: No Labs: Lab Results Component Value Date HGB 11.3 (L) 03/01/2022 and Lab Results Component Value Date GLUCOSE 103 (H) 03/01/2022 CALCIUM 8.7 03/01/2022 NA 135 03/01/2022 K 4.2 03/01/2022 CO2 30 03/01/2022 CL 104 03/01/2022 BUN 16 03/01/2022 CREATININE 0.71 03/01/2022 Rads: Radiological Procedure reviewed. Signed by: James Luther MD [facility] Progress Note ------ -- Attestation signed by Kristin Saenz at 03/01/2022 12:20 PM ATTENDING ADDENDUM I independently saw the [...] didn't), for which patient was transferred to [facility] ICU. She has remained neuro intact throughout. PLAN: 1. Neuro/Spine: 13cm spinal epidural hematoma w/o motor or sensory deficits, non-op management - cont home remeron, continue home pregabalin (for fibromyalgia) 2. CV: HDS- no history of cardiac disease, EKG NSR 3. Pulm: no acute issues, on room air 4. GI: tolerating regular diet 5. Renal: normal renal function, making adequate UOP (0.6cc/kg/hr) voiding spontaneously since allen removed, will restart home lasix and PO K 40mEq 6. Hem: Factor V Leiden on coumadin, reversed w/ PCC, h/o remote DVT/PE, duplex BLE: negative for VTE - cont to hold DVT ppx and Coumadin --> defer duration of holding AC to Spine team 7. Endo: no h/o DM, glucose wnl -> daily BMP 8. ID: leukocytosis resolved 9. Lines: PIVs 10. Proph: hold chemoppx, SCDs only, continue home protonix 11. MSK: PT/OT 12. Dispo: Q4 neurovascular checks --> stable for transfer to floor Greater than 51% of the >= 35 minute total care time throughout the day (including chart review, care coordination, and [id number] encounter) was spent discussing/counseling the patient/family regarding the care plan for Nneka Montgomery. I examined the patient independently and reviewed relevant data myself and may have done so in the context of team rounds. A full chart review was performed. Kristin Saenz MD Division of Trauma Department of Surgery [facility] Pager: [phone] -- Daily SICU Progress Note Resident 03/01/2022 7:02 AM Admit Date: 02/27/2022 HOSPITAL DAY 2 HISTORY OF PRESENT ILLNESS: 76 year old female with history of factor V Leiden, hx of DVT and PE on coumadin presents as an emergent transfer from [place] ED to [facility] ICU for 13 cm epidural hematoma from [...] bilateral lower extremities, bowel or bladder incontinence. PROCEDURES: None CHIEF COMPLAINT: BACK PAIN PREVIOUS 24 HOUR EVENTS: NO ACUTE EVENTS OVERNIGHT Consults: None MEDICATIONS: Current Facility-Administered Medications: acetaminophen (Tylenol) tablet 1,000 mg, 1,000 mg, Oral, TID, Jonh Simonss, DO, 1,000 mg at 02/28/222041 cholecalciferol (Vitamin D-3) tablet 50 mcg, 2,000 Units, Oral, Daily, Jonh Quinonez, DO, 50 mcg at 02/28/22 0843 furosemide (Lasix) tablet 40 mg, 40 mg, Oral, Daily, MELANY Saucedo CNP, 40 mg at 02/28/22 1400 Influenza Vac A&B SA Adj quadrivalent (Fluad) vaccine 0.5 mL, 0.5 mL, IntraMUSCular, Prior to discharge, Fabián Gastelum MD ondansetron ODT (Zofran-ODT) disintegrating tablet 4 mg, 4 mg, Oral, q8h PRN OR ondansetron (Zofran) injection 4 mg, 4 mg, IntraVENous, q6h PRN, Fabián Gastelum MD, 4 mg at 02/28/22 0843 oxyCODONE (Roxicodone) immediate release tablet 5 mg, 5 mg, Oral, q6h PRN, Chas Coles MD, 5 mg at 02/28/22842 pantoprazole (ProtoNix) EC tablet 40 mg, 40 mg, Oral, Nightly, Jonh Quinonez DO, 40 mg at 02/28/222041 polyethylene glycol (PEG) 3350 (Miralax) packet 17 g, 17 g, Oral, Daily PRN, Fabián Gastelum MD potassium chloride CR (Klor-Con M10) ER tablet 40 mEq, 40 mEq, Oral, Daily, Natali Amor, ZONING ENGINEER - SIGN BOARD ERECTOR, 40 mEq at 02/28/22 1400 pregabalin (Lyrica) capsule 50 mg, 50 mg, Oral, TID, Laine Becerra MD, 50 mg at 02/28/222041 simethicone (Mylicon) drops 40 mg, 40 mg, Oral, PRN, Bianca Clark DO sodium chloride 0.9 % infusion, 5-250 mL/hr, IntraVENous, PRN, Fabián Gastelum MD ARE THERE PERTINENT UPDATES TO PAST,FAMILY, OR SOCIAL HISTORY?: No Subjective: 76 (more content not included)... Normal [facility] [place] 02-28-2022 [facility] Care Managment Initi al Assessment Date: 02/28/2022 Patient Name: Nneka Montgomery : 1945 Patient Information Source of Information: Patient Cognition/Language: WFL - Within Functional Limits Permission given to speak with patient key account representative/caregiver as indicated: Yes Confirmation of Payer with patient/family: Yes Payer Name: Medicare/[place] [employer] : Confirmation of Primary Care Physician: Confirmed PCP Name: Theo Watters Seen in last 2 years?: Yes Primary Caregiver: Self If assistance needed, confirmed caregiver ready, willing and able to care for patient at discharge: Confirmed with: Living Arrangements Current Residence: House Number of Floors 2 Number of Entry Steps: 5 or more (ramp) Bed/Bath Levels: Both first floor Facility: Facility Name: Plan to Return: Lives with: Alone Support Systems: Children, Family members, Friends/neighbors, Synagogue/elie community Activities of Daily Living Ambulation: Independent Bathing/Dressing: Independent Elimination/Continence/[place] leting: Independent Feeding: Independent Who Assists with Activities of Daily Living: Instrumental Activities of Daily Living Prescription Coverage: Yes Pharmacy Used[facility] [place] Medication Management: Independent Transportation/Shopping: Independent Transportation Mode: Car Needs Assistance with Transportation at Discharge: No Meal Preparation: Independent Laundry/Cleaning: Independent Finances/Bill Paying: Independent Communication: Independent Types of Care Services/Equipment Utilized Care Services: Dialysis Type: Durable Medical Equipment: Cane Patient's Goal/Discharge Plan Patient expects to be discharged to: Home Discharge Planning Actions: Continue to follow Patient's Choice Rights and [employer] and Collaborative Relationships Disclosed as Indicated for Post-Acute Care: Interdisciplinary Team Engagement: Social Work Referral for: Additional Information: Spoke with patient and daughter Yane ([phone]) at bedside. Admitted for epidural hematoma s/p injection for pain management on 02/25. Ortho consulted for spine management, nonoperative at this time due to extensive osteoporosis. OK for GMF. Pt lives independently at home alone in a 2 story ranch with fully finished basement. Pt has support from 3 children and zoroastrian family. Pt was paralyzed and home was equipped with handicap accessibility except grab bars in shower. PT recommending home with home health PT and rolling walker, referral placed for [facility]. Plans to discharge home, dgtrs will stay with pt for several weeks, will have transportation home. TCC to follow. Tatyana Macdonald RN [facility] Progress Noteon 02-28-2022 Progress Note Adult Orthopaedic Sp ine Service Patient Name: Nneka Montgomery Date of : 1945 Date: 02/28/22 Assessment: 76 y.o. female with thoracic epidural hematoma T3-T8 Plan: -We discussed the patient with Dr. Barreto this afternoon. She continues to have improvement of her pain and has no neurologic deficits or changes. From an Ortho standpoint, she is okay to leave the ICU and have every 6 neuro exam and neurochecks per nursing from an orthopedic surgery standpoint. We will continue nonoperative management with no plan for acute surgical intervention -Please continue to hold all chemical DVT prophylaxis at this time. Please do not give patient NSAIDs -Every 6 hour nursing neuro examination -Okay for diet from orthopedic surgery standpoint -Ortho to reevaluate tomorrow -Okay to be weightbearing as tolerated -Neurovascular checks -Ortho to follow. Please reach out to the on-call orthopedic surgery resident and additional questions or concerns Subjective: Pt doing well this evening. Denies numbness, tingling of the extremities. Denies change in pain. Denies bowel or bladder incontinence, saddle paresthesias. Feels that her pain continues to improve and has been able to work with physical therapy without any consequence. Feels that her thoracic paresthesias are also improving. Medications: acetaminophen, 1,000 mg, Oral, TID cholecalciferol, 2,000 Units, Oral, Daily furosemide, 40 mg, Oral, Daily influenza, 0.5 mL, IntraMUSCular, Prior to discharge pantoprazole, 40 mg, Oral, Nightly potassium chloride CR, 40 mEq, Oral, Daily pregabalin, 50 mg, Oral, TID Physical Exam: Vitals: 02/28/22 1600 BP: (!) 107/49 Pulse: 62 Resp: 15 Temp: SpO2: 90% Intake and Output Summary (Last 24 hours) at Date Time Intake/Output Summary (Last 24 hours) at 02/28/2022 1857 Last data filed at 02/28/2022 0930 Gross per 24 hour Intake -- Output 1250 ml Net -1250 ml Spine Exam: * Exam was limited due to pain: No SA EF WE EE WF GS HI RUE 5 4+ 5 5 5 5 5 Sensation: Intact C3-T1 with normal sensation in all distributions Radial pulse: Palpable SA EF WE EE WF GS HI LUE 5 4+ 5 5 5 5 5 Sensation: Intact C3-T1 with normal sensation in all distributions Radial pulse: Palpable HF KE DF EHL PF RLE 5 5 5 5 5 Sensation: Intact L2-S1 with normal sensation Pulses: DP Palpable PT Palpable Pain w Straight leg raise: No HF KE DF EHL PF LLE 5 5 5 5 5 Sensation: Intact L2-S1 with normal sensation Pulses: DP Palpable PT Palpable Pain w Straight leg raise: No Deep Tendon Reflexes: Right Bicep: 1+ Left Bicep: 1+ Right Brachioradialis: 1+ Left Brachioradialis: 1+ Rojas: absent Right Knee: 2+ Left Knee: 2+ Right Ankle: 2+ Left Ankle: 2+ Right Ankle Clonus: absent Left Ankle Clonus: absent Babinski: equivocal Rectal Exam: deferred Labs: Lab Results Component Value Date HGB 11.1 (L) 02/28/2022 and Lab Results Component Value Date GLUCOSE 96 02/28/2022 CALCIUM 8.5 02/28/2022 NA 133 (L) 02/28/2022 K 4.5 02/28/2022 CO2 27 02/28/2022 CL 107 02/28/2022 BUN 13 02/28/2022 CREATININE 0.68 02/28/2022 Rads: Radiological Procedure reviewed. Signed by: QUENTIN BULLOCK MD [facility] Progress Note Physical Therapy Facility/Department: T2 Physical Therapy Initial Evaluation NAME: Nneka Montgomery : 1945 Date of Service: 02/28/2022 Discharge Recommendations: Home with assist PRN, Home with Home health PT PT Equipment Recommendations Equipment Needed: Yes Mobility Devices: Walker Walker: Rolling Assessment Assessment: Pt ambulated functional distance with fww, noted no overt LOB. Ambulated without device, noted unsteady gait. Recommend pt to use fww for household ambulation. Anticipate discharge to home with assist as needed. Recommend home care PT. Performance Deficits/Impairments: Decreased functional mobility , Decreased strength, Decreased balance, Decreased ADL status, Decreased endurance Treatment Diagnosis: difficulty walking Decision Making: Low Complexity Requires PT Follow-Up: Yes Discharge Recommendations: Home with assist PRN, Home with Home health PT Activity Tolerance Activity Tolerance: Patient Tolerated treatment well Patient Diagnosis(es): The primary encounter diagnosis was Epidural hematoma. A diagnosis of History of DVT (deep vein thrombosis) was also pertinent to this visit. has a past medical history of Anemia, Factor V Leiden (CMS/HCC) (), Fibromyalgia, Gastritis, GERD (gastroesophageal reflux disease), Hiatal hernia, Migraines, Osteoporosis, and Rectocele. has a past surgical history that includes Hysterectomy (1982); Appendectomy (1982); Nasal septum surgery (2003); and Kyphosis surgery. Restrictions Restrictions/Precautions Restrictions/Precautions: Fall Risk Required Braces or Orthoses?: No Position Activity Restriction Other position/activity restrictions: PIV Vision/Hearing Vision: Within Functional Limits Vision Exceptions: Wears glasses at all times Hearing: Functional/adequate for paticipation in therapy Hearing Exceptions: Bilateral hearing aid Cognition/Orientation Overall Cognitive Status: WFL Overall Orientation Status: Within Functional Limits Subjective General Chart Reviewed: Yes Patient Assessed for Rehabilitation Services: Yes Additional Pertinent Hx: factor V Leiden, hx of DVT and PE Diagnosis: Epidural Hematoma Follows Commands: Within Functional Limits General Comment Comments: epidural hematoma from T3-T8 with anterior compression, following pain management injection on 02/25/22 for chronic back pain. Subjective Subjective: Pt on BSC, agree with PT treatment. RN cleared for PT. Pain Assessment Pain Assessment: 0-10 Pain Score: 5 - Moderate pain Pain Type: Chronic pain Pain Location: Back Pain Interventions: Ambulation/increased activity Orientation Orientation Overall Orientation Status: Within Functional Limits Social/Functional History Social/Functional History Lives With: Alone Type of Home: House Home Layout: Two level, Able to Live on Main level with bedroom/bathroom Home Access: Ramped entrance Bathroom Shower/Tub: Walk-in shower Bathroom Toilet: Standard Bathroom Equipment: Built-in shower seat, Grab bars around toilet Bathroom Accessibility: Accessible Home Equipment: Cane, Alert Button ADL Assistance: Independent Homemaking Assistance: Independent Homemaking Responsibilities: Yes Ambulation Assistance: Independent (without device) Transfer Assistance: Independent Active Supervisor Facepiece Line: Yes Occupation: Retired Objective Gross Assessment Gross Assessment: Yes AROM: Within functional limits PROM: Within functional limits Strength: Within functional limits Coordination: Within functional limits Tone: Normal Sensation: Intact Gross Assessment: Yes AROM: Within functional limits PROM: Within functional limits Strength: Within functional limits Coordination: Within functional limits Tone: Normal Sensation: Intact Bed mobility Sit to Supine: Stand by assistance Scooting: Supervision Transfers Sit to Stand: Stand by assistance Stand to sit: Stand by assistance Stand Pivot Transfers: Stand by assistance Ambulation Ambulation: Yes Ambulation 1 Surface 1: Level tile Device 1: No device Assistance 1: Minimum assistance Quality of Gait 1: path deviation Distance (ft) 1: 6 ft Ambulation 2 Surface 2: Level tile Device 2: Rolling walker Assistance 2: Close supervision Quality of Gait 2: decreased carli Distance (ft) 2: 100 ft Balance Posture: Fair Sitting - Static: Good Sitting - Dynamic: Good Standing - Static: Fair, + Standing - Dynamic: Fair Plan Times per Week: 3-5x/wk Plan Weeks: 4 Current Treatment Recommendations: Strengthening, Balance Training, Functional Mobility Training, Transfer Training, Gait Training Safety Safety Devices Safety Devices in Place: Yes Type of Devices: Left in bed, Call light within reach, Gait belt, All fall risk precatuions in place, Nurse notified (PPE) Restraints Restraints Initially in Place: No Outcomes Score AM-PAC Score AM-PAC Inpa (more content not included)... Normal [facility] Progress Note Occupational Therapy Facility/Department: T2 Occupational Therapy Initial Evaluation NAME: Nneka Montgomery : 1945 Date of Service: 02/28/2022 Discharge Recommendations: 24 hour supervision or assist Assessment Performance deficits / Impairments: Decreased functional mobility , Decreased ADL status, Decreased strength, Decreased endurance, Decreased balance, Decreased high-level IADLs, Decreased posture, Decreased fine motor control Assessment: OT eval completed. Pt presents with above deficits limiting functional indep. Pt is a falls risk but anticipate pt safe to return home with 24 hr assist from family. Family in room and state they plan to stay with pt upon discharge. Pt would benefit from home therapy. Prognosis: Good Decision Making: Low Complexity Exam: [facility] REQUIRES OT FOLLOW-UP: Yes Activity Tolerance Activity Tolerance: Patient Tolerated treatment well Patient Diagnosis(es): The primary encounter diagnosis was Epidural hematoma. A diagnosis of History of DVT (deep vein thrombosis) was also pertinent to this visit. has a past medical history of Anemia, Factor V Leiden (CMS/HCC) ([facility]), Fibromyalgia, Gastritis, GERD (gastroesophageal reflux disease), Hiatal hernia, Migraines, Osteoporosis, and Rectocele. has a past surgical history that includes Hysterectomy (1982); Appendectomy (1982); Nasal septum surgery (2003); and Kyphosis surgery. Restrictions Restrictions/Precautions Restrictions/Precautions: Fall Risk Required Braces or Orthoses?: No Position Activity Restriction Other position/activity restrictions: PIV Vision/Hearing Vision: Within Functional Limits Vision Exceptions: Wears glasses at all times Hearing: Functional/adequate for paticipation in therapy Hearing Exceptions: Bilateral hearing aid (only L battery currently working) Cognition/Orientation Overall Cognitive Status: WFL Overall Orientation Status: Within Functional Limits Subjective General Chart Reviewed: Yes Patient Assessed for Rehabilitation Services: Yes Additional Pertinent Hx: Hx of steroid injections for compression Fxs Family / Caregiver Present: Yes (dtr and son in law) Diagnosis: Pt admitted with thoracic epidural hematoma T3-T8 post steroid injection. Subjective Subjective: Pt sitting on BSC upon entry. Pt agreeable to OT eval. General Comments Comments: R hand dominant, states pain in back currently same as baseline Pain Assessment Pain Score: 5 - Moderate pain Pain Intervention: Chronic pain diagnosis Pain Type: Chronic pain Pain Location: Back Pain Orientation: Mid, Posterior Pain Descriptors: Discomfort Pain Interventions: Ambulation/increased activity, Repositioned, Rest Social/Functional History Social/Functional History Lives With: Alone Type of Home: House Home Layout: Two level, Able to Live on Main level with bedroom/bathroom Home Access: Ramped entrance Bathroom Shower/Tub: Walk-in shower Bathroom Toilet: Standard Bathroom Equipment: Built-in shower seat, Grab bars around toilet Bathroom Accessibility: Accessible Home Equipment: Cane, Alert Button ADL Assistance: Independent Homemaking Assistance: Independent Homemaking Responsibilities: Yes Ambulation Assistance: Independent (without device) Transfer Assistance: Independent Active Supervisor Facepiece Line: Yes Occupation: Retired Objective Gross Assessment: Yes AROM: Generally decreased, functional Strength: Generally decreased, functional Coordination: Generally decreased, functional (assist to open toothbrush wrapping but pt able to open toothpaste without assist.) Tone: Normal Sensation: Intact Observation/Palpation Posture: Fair Balance Sitting Balance: Supervision Standing Balance: Stand by assistance (with FWW) Functional Mobility Functional Mobility Comments: Initial steps without device requiring min assist due to unsteadiness. SBA functional amb with FWW. Toilet Transfers Toilet - Technique: Ambulating Equipment Used: Standard bedside commode Toilet Transfer: Stand by assistance ADL Grooming: Stand by assistance LE Dressing: Stand by assistance Toileting: Stand by assistance Additional Comments: SBA pericare in standing after urinating. SBA to brush teeth standing at sink. SBA to don/doff slipper socks using figure 4 method seated EOB. Estimate SBA for bathing and UE ADL. Bed mobility Sit to Supine: Stand by assistance Scooting: Supervision Comment: pt used log roll method without cues Transfers Sit to stand: Stand by assistance Stand to sit: Stand by assistance Plan Times per Week: 3-5x Plan Weeks: 4 Current Treatment Recommendations: ROM, Balance Training, Functional Mobility Training, Endurance Training, Strengthening, Gait Training, Safety Education & Training, Pain Management, Patient/Caregiver Education & Training, Equipment Evaluation, Education, & procurement, Positioning, Self-Care / ADL, Home M (more content not included)... Normal [facility] Progress Note ------ -- Attestation signed by Kritsin Saenz at 02/28/2022 3:01 PM ATTENDING ADDENDUM I independently saw the [...] didn't), for which patient was transferred to [facility] ICU. She has remained neuro intact throughout. PLAN: 1. Neuro/Spine: 13cm spinal epidural hematoma --> no motor or sensory deficits, trial of non-op management - chronic pain: receives spinal injections for chronic pain --> PO tylenol PRN - cont home remeron, continue home pregabalin (for fibromyalgia) 2. CV: HDS- no history of cardiac disease, EKG NSR 3. Pulm: no acute issues, on room air 4. GI: tolerating regular diet 5. Renal: normal renal function, making adequate UOP (0.6cc/kg/hr) voiding spontaneously since allen removed, will restart home lasix and PO K 40mEq 6. Hem: Factor V Leiden on coumadin, history of remote DVT/PE, duplex BLE: negative for VTE - s/p Kcentra at [place] --> INR 1.0 today - will defer duration of holding AC to Spine team 7. Endo: no h/o DM, glucose wnl -> daily BMP 8. ID: leukocytosis resolved 9. Lines: PIVs 10. Proph: hold chemoppx, SCDs only, continue home protonix 11. MSK: PT/OT 12. Dispo: Q4 neurovascular checks --> stable for transfer to floor Greater than 51% of the >= 35 minute total care time throughout the day (including chart review, care coordination, and [id number] encounter) was spent discussing/counseling the patient/family regarding the care plan for Nneka Montgomery. I examined the patient independently and reviewed relevant data myself and may have done so in the context of team rounds. A full chart review was performed. Kristin Saenz MD Division of Trauma Department of Surgery [facility] Pager: [phone] -- Daily SICU Progress Note Resident 02/28/2022 7:58 AM Admit Date: 02/27/2022 HOSPITAL DAY 2 HISTORY OF PRESENT ILLNESS: 76 year old female with history of factor V Leiden, hx of DVT and PE on coumadin presents as an emergent transfer from [place] ED to [facility] ICU for 13 cm epidural hematoma from [...] bilateral lower extremities, bowel or bladder incontinence. PROCEDURES: None CHIEF COMPLAINT: BACK PAIN PREVIOUS 24 HOUR EVENTS: NO ACUTE EVENTS OVERNIGHT Consults: None MEDICATIONS: Current Facility-Administered Medications: acetaminophen (Tylenol) tablet 1,000 mg, 1,000 mg, Oral, TID, Jonh Quinonez DO, 1,000 mg at 02/27/222012 cholecalciferol (Vitamin D-3) tablet 50 mcg, 2,000 Units, Oral, Daily, Jonh Quinonez DO, 50 mcg at 02/27/221199 Influenza Vac A&B SA Adj quadrivalent (Fluad) vaccine 0.5 mL, 0.5 mL, IntraMUSCular, Prior to discharge, Fabián Gastelum MD ondansetron ODT (Zofran-ODT) disintegrating tablet 4 mg, 4 mg, Oral, q8h PRN OR ondansetron (Zofran) injection 4 mg, 4 mg, IntraVENous, q6h PRN, Fabián Gastelum MD oxyCODONE (Roxicodone) immediate release tablet 5 mg, 5 mg, Oral, q6h PRN, Chas Coles MD, 5 mg at 02/27/221924 pantoprazole (ProtoNix) EC tablet 40 mg, 40 mg, Oral, Nightly, Jonh Quinonez DO, 40 mg at 02/27/222012 polyethylene glycol (PEG) 3350 (Miralax) packet 17 g, 17 g, Oral, Daily PRN, Fabián Gastelum MD pregabalin (Lyrica) capsule 50 mg, 50 mg, Oral, TID, Laine Becerra MD, 50 mg at 02/27/222012 sodium chloride 0.9 % infusion, 5-250 mL/hr, IntraVENous, PRN, Fabián Gastelum MD sodium chloride 0.9 % infusion, 100 mL/hr, IntraVENous, Continuous, Fabián Gastelum MD, Last Rate: 100 mL/hr at 02/27/222012, 100 mL/hr at 02/27/222012 ARE THERE PERTINENT UPDATES TO PAST,FAMILY, OR SOCIAL HISTORY?: No Subjective: 76 year old female with history of factor V Leiden, hx of DVT and PE on coumadin presents (more content not included)... Normal [facility] Progress Note Adult Orthopaedic Sp ine Service Patient Name: Nneka Montgomery Date of : 1945 Date: 02/28/22 Assessment: 76 y.o. female with thoracic epidural hematoma T3-T8 Plan: -Discussed with attending physician Dr. Barreto -Patient has a mild amount of improvement of her pain as well as no neurologic deficits. She also has severe osteoporosis noted by her extensive compression fractures which would make her a poor surgical candidate from a spine stability standpoint. At this time we will plan to treat her nonoperatively with frequent neurologic evaluations to identify any worsening or developing neurologic changes. -Please hold all chemical DVT prophylaxis at this time. Please do not give patient NSAIDs as well -At least q. 2 to q 4 nursing neurologic evaluations. Please reach out if there are any concerns or changes -Okay for diet from orthopedic surgery standpoint -Ortho reevaluation at approximately midnight tonight. -Okay to be weightbearing as tolerated -Neurovascular checks -Ortho to follow. Please reach out to the on-call orthopedic surgery resident and additional questions or concerns Subjective: Pt doing well this evening. Denies numbness, tingling of the extremities. Denies change in pain. Denies bowel or bladder incontinence, saddle paresthesias. Medications: acetaminophen, 1,000 mg, Oral, TID cholecalciferol, 2,000 Units, Oral, Daily influenza, 0.5 mL, IntraMUSCular, Prior to discharge pantoprazole, 40 mg, Oral, Nightly pregabalin, 50 mg, Oral, TID Physical Exam: Vitals: 02/28/22 0700 BP: 137/60 Pulse: 53 Resp: 16 Temp: SpO2: 99% Intake and Output Summary (Last 24 hours) at Date Time Intake/Output Summary (Last 24 hours) at 02/28/2022 0846 Last data filed at 02/28/2022 0700 Gross per 24 hour Intake 1042 ml Output 1555 ml Net -513 ml Spine Exam: * Exam was limited due to pain: No SA EF WE EE WF GS HI RUE 5 4 5 5 5 5 5 Sensation: Intact C3-T1 with normal sensation in all distributions Radial pulse: Palpable SA EF WE EE WF GS HI LUE 5 4 5 5 5 5 5 Sensation: Intact C3-T1 with normal sensation in all distributions Radial pulse: Palpable HF KE DF EHL PF RLE 5 5 5 5 5 Sensation: Intact L2-S1 with normal sensation Pulses: DP Palpable PT Palpable Pain w Straight leg raise: No HF KE DF EHL PF LLE 5 5 5 5 5 Sensation: Intact L2-S1 with normal sensation Pulses: DP Palpable PT Palpable Pain w Straight leg raise: No Deep Tendon Reflexes: Right Bicep: 1+ Left Bicep: 1+ Right Brachioradialis: 1+ Left Brachioradialis: 1+ Rojas: absent Right Knee: 2+ Left Knee: 2+ Right Ankle: 2+ Left Ankle: 2+ Right Ankle Clonus: absent Left Ankle Clonus: absent Babinski: equivocal Rectal Exam: deferred Labs: Lab Results Component Value Date HGB 11.1 (L) 02/28/2022 and Lab Results Component Value Date GLUCOSE 96 02/28/2022 CALCIUM 8.5 02/28/2022 NA 133 (L) 02/28/2022 K 4.5 02/28/2022 CO2 27 02/28/2022 CL 107 02/28/2022 BUN 13 02/28/2022 CREATININE 0.68 02/28/2022 Rads: Radiological Procedure reviewed. Signed by: JOSHUA HINES MD [facility] Consulton 02-27-2022 Consult Nutrition Assessment Type and Reason for Visit: RD Nutrition Re-Screen/LOS Nutrition Recommendations/Plan: Continue with Regular diet. Sign off to electrophysiology technician. 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 No nutritional concerns identified. Sophia Ruiz RD Contact: *[phone] or Zaplee Bonnie [facility] Consult Ortho Spine H&P/Cons ult Patient: Nneka Montgomery Date of : 1945 Acct: [id number] PCP: No primary care provider on file. Date of Admission: 02/27/2022 Date of Service: Pt seen/examined on 02/27/2022 Chief Complaint: Back pain after epidural steroid injection History Of Present Illness: 76 y.o. female who presents with thoracic spine pain after an injection at her regular pain clinic in [place] on 02/25. Patient reports she has been going to this clinic for years and receiving injections to help with pain she experiences from multiple spine and rib fractures from osteoporosis. She reports her spine fractures were diagnosed by her pain physician Dr. Donohue and he has been treating them for her with injections. Patient has been receiving regular epidural steroid injections for her chronic compression fractures. Her most recent injection was on Thursday and she has not notified to stop taking her warfarin prior to receiving her injection. Following her injection she had progressive thoracic pain that continued into yesterday for which she sought evaluation. She was found to have a large epidural hematoma of her thoracic spine and was subsequently transferred to [facility] for further evaluation and management. Patient states that she was receiving an epidural steroid injection at approximately levels of T6-T7 as well as T7 and T8. The only symptom she is currently experiencing is mid thoracic back pain that somewhat wraps around her sides. She feels that her pain is slightly improved from yesterday. She denies having any new numbness, weakness, or tingling. She states that she has baseline left ankle paresthesias at baseline that are chronic and unchanged. Patient is not known to any orthopedic surgeons or neurosurgeons but states that she has had numerous compression fractures and kyphoplasties throughout her thoracic and lumbar spine. She endorses chronic functional incontinence and denies having any true bowel or bladder incontinence or saddle anesthesia. She currently takes warfarin as she has a history of blood clots and factor V Leiden. She denies any smoking, alcohol, or drug use. Hx from chart and/or Pt. Patient ambulation status: no difficulty. Antiplatelets/Anticoagulat ion includes: warfarin. Past Medical History: No past medical history on file. Past Surgical History: Recent Surgeries in Orthopedic Surgery No cases to display Home Medications: Prior to Admission medications Not on File Current Hospital Medications: Current Facility-Administered Medications: Influenza Vac A&B SA Adj quadrivalent (Fluad) vaccine 0.5 mL, 0.5 mL, IntraMUSCular, Prior to discharge, Fabián Gastelum MD ondansetron ODT (Zofran-ODT) disintegrating tablet 4 mg, 4 mg, Oral, q8h PRN OR ondansetron (Zofran) injection 4 mg, 4 mg, IntraVENous, q6h PRN, Fabián Gastelum MD polyethylene glycol (PEG) 3350 (Miralax) packet 17 g, 17 g, Oral, Daily PRN, Fabián Gastelum MD sodium chloride 0.9 % infusion, 5-250 mL/hr, IntraVENous, PRN, Fabián Gastelum MD sodium chloride 0.9 % infusion, 100 mL/hr, IntraVENous, Continuous, Fabián Gastelum MD, Last Rate: 100 mL/hr at 02/27/22 0800, 100 mL/hr at 02/27/22 08 Allergies: Patient has no allergy information on record. Social History: Social History Socioeconomic History Marital status: Spouse name: Not on file Number of children: Not on file Years of education: Not on file Highest education level: Not on file Occupational History Not on file Tobacco Use Smoking status: Not on file Smokeless tobacco: Not on file Substance and Sexual Activity Alcohol use: Not on file Drug use: Not on file Sexual activity: Not on file Other Topics Concern Not on file Social History Narrative Not on file Social Determinants of Health Financial Resource Strain: Not on file Food Insecurity: Not on file Transportation Needs: Not on file Physical Activity: Not on file Stress: Not on file Social Connections: Not on file Intimate Partner Violence: Not on file Housing Stability: Not on file Family History: No family history on file. Further Family History is noncontributory to this injury. REVIEW OF SYSTEMS: Review of Systems - General ROS: negative for - chills, fatigue, fever, malaise or night sweats Psychological ROS: negative Ophthalmic ROS: negative ENT ROS: negative for - headaches or sore throat Hematological and Lymphatic ROS: Positive for - blood clots Respiratory ROS: no cough, shortness of breath, or wheezing Cardiovascular ROS: no chest pain or dyspnea on exertion Gastrointestinal ROS: negative Musculoskeletal ROS: See HPI Neurological ROS: See HPI All other systems reviewed and are negative PHYSICAL EXAM: BP 128/66 Pulse 79 Temp 36.6 ?C (97.8 ?F) (Temporal) Resp 15 Wt 67.4 kg (148 lb 9.4 oz) SpO2 98% GENERAL APPEARANCE: Awake and oriented x3. No acute (more content not included)... Normal [facility] Progress Noteon 02-27-2022 Progress Note Entered in error Normal [facility] Progress Note Speech-Bunch Breaker ology Facility/Department: [facility] T2 CLINICAL BEDSIDE SWALLOW EVALUATION NAME: Nneka Montgomery : 1945 ADMISSION DATE: 02/27/2022 ADMITTING DIAGNOSIS: has Epidural hematoma on their problem list. Recent Chest Xray/CT of Chest: None on file this admission. Date of Eval: 02/27/2022 Evaluating Therapist: Melvina Zvaala MA, CCC-SURVEILLANCE TECHNICIAN Current Diet level: Dietary Orders (From admission, onward) Start Ordered 02/27/22 0615 NPO diet NPO except: Sips of Water with Meds Diet effective now Question: NPO except: Answer: Sips of Water with Meds 02/27/22 0616 Primary Complaint: back pain Patient Complaint: None at this time. Pain: RN managing patient pain. Pain Assessment Pain Assessment: 0-10 Pain Score: 6 Reason for Referral ED Note: 76 year old female with history of factor V Leiden, hx of DVT and PE on coumadin presents as an emergent transfer from [place] ED to [facility] ICU for 13 cm epidural hematoma from [...] bilateral lower extremities, bowel or bladder incontinence. Principal Problem: Epidural hematoma Nneka Montgomery was referred for a bedside swallow evaluation to assess the efficiency of her swallow function, identify signs and symptoms of aspiration and make recommendations regarding safe dietary consistencies, effective compensatory strategies, and safe eating environment. Impression Dysphagia Diagnosis: Swallow function appears grossly intact Dysphagia Impression : Patient clinically presents with an essentially normal swallow function. No overt s/s of penetration or aspiration noted throughout session. Patient does not require SURVEILLANCE TECHNICIAN services at this time. Treatment Plan Requires SURVEILLANCE TECHNICIAN Intervention: No Frequency/Duration: (NA) for Recommended Diet and Intervention Recommend Regular Diet with Thin Liquids + safe swallow strategies. Patient clinically presents with an essentially normal swallow function, no SURVEILLANCE TECHNICIAN services required at this time. Diet Solids Recommendation: Regular Liquid Consistency Recommendation: Thin Recommended Form of Meds: PO Compensatory Swallowing Strategies Compensatory Swallowing Strategies : Upright as possible for all oral intake, Small bites/sips Education Education Given: swallowing strategies, diet recommendations Education Given To: Patient, RN Education Response: Verbalizes understanding, Demonstrated understanding General Chart Reviewed: Yes PPE Worn: surgical mask, gloves Subjective: Patient alert and sitting upright in bed upon SURVEILLANCE TECHNICIAN arrival. SURVEILLANCE TECHNICIAN spoke with RN prior to session, no swallowing concerns. Patient fully participated throughout session. Behavior/Cognition: Alert, Cooperative, Pleasant mood Respiratory Status: Room air O2 Device: None (Room air) Communication Observation: Functional Follows Directions: Complex Current Diet : NPO Current Liquid Diet : NPO Dentition: Adequate Patient Positioning: Upright in bed Baseline Vocal Quality: Normal Prior Dysphagia History: NA Prior MBS: No Patient Complaint: None at this time. Consistencies Administered: Reg solid, Thin - straw, Ice Chips, Dysphagia Pureed (Dysphagia I) Vision/Hearing Hearing: Functional/adequate for paticipation in therapy Oral Motor Deficits Oral/Motor Oral Motor: Within functional limits Oral Phase Dysfunction Oral Phase Oral Phase: Patient able to feed self. Noted timely mastication, timely bolus transport, and no oral residue. Suspect good bolus control. No anterior spillage of liquids. Patient clinically presents with an essentially normal oral phase of the swallow function. Indicators of Pharyngeal Phase Dysfunction Pharyngeal Phase Pharyngeal: No cough or change in vocal quality. Palpated strong laryngeal elevation. No watering eyes otr increased/effortful breathing following PO trials. Patient clinically presents with an essentially normal pharyngeal phase of the swallow function. Therapy Time SURVEILLANCE TECHNICIAN Individual Minutes Time In: 08 Time Out: 822 Minutes: 10 A surgical mask and gloves were worn throughout session Melvina Zavala MA, [facility]-SURVEILLANCE TECHNICIAN 02/27/2022 8:51 AM Normal [facility] BASIC METABOLIC PANELon 11-2 Anion gap 4 mmol/L Abnormal - [facility] Comment on above: Performed By: #### L AB15 ####[facility] CLIA [id number] [facility] [place] [address] BUN (urea nitrogen) 8 mg/dL Normal - [facility] Comment on above: Performed By: #### L AB15 ####[facility] CLIA [id number] [facility] [place] [address] Calcium 8.6 mg/dL Normal 8.5-10.1 [facility] Comment on above: Performed By: #### L AB15 ####[facility] CLIA [id number] [place] [address] Chloride 105 mmol/L Normal 98-107 [facility] Comment on above: Performed By: #### L AB15 ####[facility] CLIA [id number] [place] [address] CO2 30 mmol/L Normal 21-32 [facility] Comment on above: Performed By: #### L AB15 ####[facility] CLIA [id number] [place] [address] Creatinine 0.7 mg/dL Normal 0.6-1.30 [facility] Comment on above: Performed By: #### L AB15 ####[facility] CLIA [id number] [place] [address] eGFR (black) mL/min/{1.73_m2} Normal >60 [facility] Comment on above: Result Comment: GFR is estimated using creatinine, age, gender, and race. Patient's values should be interpreted as a trend. For additional information: [email or web address] Performed By: #### L AB15 ####[facility] CLIA [id number] [facility] [place] [place] [address] eGFR (non-black) mL/min/{1.73_m2} Normal >60 [facility] Comment on above: Result Comment: GFR is estimated using creatinine, age, gender, and race. Patient's values should be interpreted as a trend. For additional information: [email or web address] Performed By: #### L AB15 ####[facility] CLIA [id number] [place] [address] Glucose mass conc 86 mg/dL Normal 74-106 [facility] Comment on above: Performed By: #### L AB15 ####[facility] CLIA [id number] [place] [address] Potassium molar conc 4.0 mmol/L Normal 3.5-5.1 [facility] Comment on above: Performed By: #### L AB15 ####[facility] CLIA [id number] [place] [address] Sodium 139 mmol/L Normal 136-145 [facility] Comment on above: Performed By: #### L AB15 ####[facility] CLIA [id number] [place] [address] CBC W/DIFFon 02-12-2017 Basophils/100 WBC Auto (Bld) 0.3 % Normal [facility] Comment on above: Performed By: #### L [id number] ####[facility] CLIA [id number] [place] [address] BSA (Body Surface Area) 0.0 K/uL Normal 0.0-0.1 [facility] Comment on above: Performed By: #### L [id number] ####[facility] CLIA [id number] [place] [address] Eosinophils 2.0 10*3/uL Normal [facility] Comment on above: Performed By: #### L [id number] ####[facility] CLIA [id number] [place] [address] Eosinophils 0.3 10*3/uL Normal 0.0-0.4 [facility] Comment on above: Performed By: #### L [id number] ####[facility] CLIA [id number] [place] [address] Erythrocyte distribution width Auto Ratio (RBC) 14.7 % Normal 11.7-15.2 [facility] Comment on above: Performed By: #### L [id number] ####[facility] CLIA [id number] [place] [address] Erythrocytes (RBC) 4.16 10*6/uL Normal 3.86-5.17 [facility] Comment on above: Performed By: #### L [id number] ####[facility] CLIA [id number] [place] [address] Hematocrit (HCT) 38.7 % Normal 35.8-46.5 [facility] Comment on above: Performed By: #### L [id number] ####[facility] CLIA [id number] [place] [address] Hemoglobin mass conc (Bld) 12.8 g/dL Normal 12.1-15.8 [facility] Comment on above: Performed By: #### L [id number] ####[facility] CLIA [id number] [place] [address] Lymphocytes 14.9 10*3/uL Normal [facility] Comment on above: Performed By: #### L [id number] ####[facility] CLIA [id number] [facility] [place] [address] Lymphocytes 2.0 10*3/uL Normal 0.8-3.6 [facility] Comment on above: Performed By: #### L [id number] ####[facility] CLIA [id number] [facility] [place] [address] MCH 30.8 pg Normal 28.4-33.4 [facility] Comment on above: Performed By: #### L [id number] ####[facility] CLIA [id number] [facility] [place] [address] MCHC mass conc (RBC) 33.1 g/dL Normal 31.1-37.0 [facility] Comment on above: Performed By: #### L [id number] ####[facility] CLIA [id number] [facility] [place] [address] MCV 93.0 fL Normal 85.0-99.0 [facility] Comment on above: Performed By: #### L [id number] ####[facility] CLIA [id number] [facility] [place] [address] Monocytes 1.0 10*3/uL Abnormal 0.3-0.9 [facility] Comment on above: Performed By: #### L [id number] ####[facility] CLIA [id number] [facility] [place] [address] Monocytes 7.5 10*3/uL Normal [facility] Comment on above: Performed By: #### L [id number] ####[facility] CLIA [id number] [facility] [place] [address] Neutrophils 9.9 10*3/uL Abnormal 2.0-7.3 [facility] Comment on above: Performed By: #### L [id number] ####[facility] CLIA [id number] [place] [address] Neutrophils 75.3 10*3/uL Normal [facility] Comment on above: Performed By: #### L [id number] ####[facility] CLIA [id number] [place] [address] Platelets 269 10*3/uL Normal 154-393 [facility] Comment on above: Performed By: #### L [id number] ####[facility] CLIA [id number] [facility] [place] [address] WBC (Leukocytes) 13.2 10*3/uL Abnormal 4.0-10.5 [facility] Comment on above: Performed By: #### L [id number] ####[facility] CLIA [id number] [facility] [place] [address] ED Provider Noteson 02-13-20 17 ED Provider Notes Encounter Department : [facility] EMERGENCY DEPARTMENTED Provider Notes by Suzanne Bob DO at 02/12/2017 12:32 PMAuthor: Nayeli Langleyrvice: Emergency MedicineAuthor Type: ED PhysicianFiled: 02/12/2017 12:33 PMDate of Service: 02/12/2017 12:32 PMStatus: SignedEditor: Suzanne Bob DO (ED Physician)I have fully participated in the care of this patient and have had a [id number] evaluation. Ihave reviewed and agree with all pertinent clinical information, and resident's history, andphysical exam. I have also reviewed the labs,, imaging studies and treatment plan. I have alsoreviewed and agree with the medications, allergies and past medical history section for thispatient. I agree with the diagnosis, and I concur1.Urinary tract infection with hematuria, site unspecified2.Right anterior knee painSophia Roberto DO02/12/17 1233 Normal [facility] ED Provider Notes Encounter Department : [facility] EMERGENCY DEPARTMENTED Provider Notes by Lynnette Wilder DO at 02/12/2017 10:38 AMAuthor: Nayeli Royrvice: Emergency MedicineAuthor Type: ED PhysicianFiled: 02/12/2017 12:22 PMDate of Service: 02/12/2017 10:38 AMStatus: SignedEditor: Lynnette Wilder DO (ED Physician)Cosigner: Suzanne Bob DO at 02/12/201712:33 PMCHIEF COMPLAINTChief ComplaintPatient presents with -Dysuria -Knee PainHPIMtorri Montgomery is a 71 y.o. female who presents with dysuria and knee pain. The patient states shestarted having burning with urination yesterday. She took some Azo today and is making her urinedark in color. She has noted some blood in her urine. She has had UTIs in the past and states itfelt like this. She is not having any abdominal pain no fevers no nausea vomiting. She istolerating p.o. intake. She also complains of some right anterior knee pain that started 2 daysago after wearing a pair of boots she thinks the boots were rubbing on her leg. Is not having anycalf pain tenderness or swelling. She does have a history of DVT she is currently taking Coumadin.REVIEW OF SYSTEMSA ten point review of systems was reviewed and is otherwise negative with the exception of thatstated in the HPI.PAST MEDICAL HISTORYPast Medical History:DiagnosisDate -Bradycardia -Chest pain -DVT (deep vein thrombosis) in (HCC) -Hyperlipidemia -Keratosis seborrheica -Pulmonary embolism (HCC)FAMILY HISTORYNo family history on file.SOCIAL HISTORYSocial HistorySocial History -Marital status:WidowedSpouse name:N/A -Number of children:N/A -Years of education:N/ASocial History Main Topics -Smoking status:None -Smokeless tobacco:None -Alcohol useNone -Drug use:None -Sexual activity:Not AskedOther TopicsConcern -NoneSocial History Narrative -NoneSURGICAL HISTORYHistory reviewed. No pertinent surgical history.CURRENT MEDICATIONSNo current facility-administered medications for this encounter.Current Outpatient PrescriptionsMedicationSig DispenseRefill -b complex vitamins (JERZY B) tabletTake 1 tablet by mouth daily. -cephALEXin (KEFLEX) 500 mg capsuleTake 1 capsule by mouth 3 times daily for 7 days.21 capsule0 -cholecalciferol (VITAMIN D3) 1,000 unit Tab tabletTake 1,000 Units by mouth daily. -clonazePAM (KLONOPIN) 0.5 mg tabletTake 0.5 mg by mouth 2 times daily as needed for Anxiety. -HYDROcodone-acetaminophen (NORCO) 5-325 mg tabletTake 1 tablet by mouth every 6 hours as neededfor Pain. -naratriptan (AMERGE) 2.5 mg tabletTake 2.5 mg by mouth as needed for Migraine. Take one(1)tablet at onset of headache, may repeat in 4 hours if needed -omeprazole (PRILOSEC) 40 mg delayed-release capsuleTake 40 mg by mouth daily. -vitamin E 1,000 unit capsuleTake 1,000 Units by mouth daily. -warfarin (COUMADIN) 5 mg tabletTake 5 mg by mouth daily.ALLERGIESAllergiesAl lergenReactions -[place] Oil -Frovatriptan -Imitrex [Sumatriptan Succinate] -Iodine -Vitamin E (Bulk)PHYSICAL EXAMVITAL SIGNS: BP 157/82 Pulse 85 Temp 97.5 ?F (36.4 ?C) Resp 18 Ht 4' 9 (1.448 m) Wt 145lb (65.8 kg) SpO2 99% BMI 31.38 kg/c3Ajuxpqtehzskkq: Well developed, Well nourished, nontoxic in appearanceHENT: Atraumatic, Normocephalic, Bilateral external ears normal, Nose normal, Oropharynx moistEyes: PERRL, EOMI, No discharge, Conjunctiva normal, No scleral icterus.Neck: Normal range of motionCardiovascular: Regular rate and rhythmThorax AND Lungs: No respiratory distress, normal respiratory effort.Skin: Warm, No rash, Dry, No erythema. Peripheral capillary refill intactAbdomen: Soft, No tenderness, No pulsatile masses, No distention, No massesExtremities: No tenderness, No edema, No cyanosis, No clubbing, No deformities. No significantrange of motion deficits. No calf swelling or tenderness no erythema no evidence of cellulitisthere is point tenderness on the right anterior medial knee with a small bruiseMusculoskeletal: No tenderness to palpation or major deformities noted. Moving all extremitiesappropriately.N eurologic: Alert , cranial nerves grossly intact, Normal sensory function, Normal motor function,No focal deficits noted.Psychiatric: Affect and mood appropriate for situationRADIOLOGY/PROCEDU RESI have personally reviewed all of the imaging results for this case.Last Imaging resultsResults for orders placed or performed during the hospital encounter of 02/12/17XR-KNEE RIGHT 1-2 VIEWSNarrativePROCEDURE:XR -KNEE RIGHT 1-2 VIEWSDATE OF EXAM: 02/12/2017 11:44 AMDEMOGRAPHICS: 71 years old FemaleINDICATION: knee pain x 2 days History: knee pain x 2 days. Number of Series/Images: 2.COMPARISON: No existing relevant imaging study corresponding to the same anatomical region isavailable.FINDINGS:2 views of the Right knee were obtained. Lateral view slightly limited due to obliquity. Theosseous structures are intact. The joint spaces are maintained. There is no significant soft tissueswelling.ImpressionS lightly limited study with no evidence for acute findings.Electronically Signed by: Raji Castro MD, 02/12/2017 11:51 AMLabs ReviewedURINALYSIS W/REFLEX MICROSCOPY - Abnormal; Notable for the following: ResultValueRef RangeStatusUrine ColorOrange (*)YellowFinalGlucose Ajhdvnfxjg332.0 (*)Negative mg/dLFinalBlood UrinalysisLarge (*)NegativeFinalProtein Urinalysis>=300 (*)Negative mg/dLFinalUrine NitritePositive (*)NegativeFinalBilirubin UrinalysisSmall (*)NegativeFinalUrobilinog en Urinalysis4.0 (*)0.2 - 1.0 EU/dLFinalLeukocytes UrinalysisModerate (*)NegativeFinalAll other components within normal limitsCBC W/DIFF - Abnormal; Notable for the following:WBC13.2 (*)4.0 - 10.5 10*3/uLFinalNeutrophils Absolute9.9 (*)2.0 - 7.3 K/uLFinalMonocytes Absolute1.0 (*)0.3 - 0.9 K/uLFinalAll other components within normal limitsBASIC METABOLIC PANEL - Abnormal; Notable for the following:Anion Gap4 (*)7 - 16 mmol/LFinalAll other components within normal limitsURINALYSIS MICROSCOPIC ONLY - Abnormal; Notable for the following:Urine White Blood Hzard33-91 (*)0 - 3 /hpfFinalUrine Red Blood Rjzmv21-43 (*)0 - 3 /hpfFinalUrine Bacteria1+ (*)Negative /hpfFinalAll other components within normal limitsURINE CULTURECOURSE AND MEDICAL DECISION MAKINGPertinent Labs AND Imaging studies reviewed. (See chart for details)NARx Score: NARX Narcotic: 441 Stimulants: 000 Sedative: 451MedicationscephALEXin (KEFLEX) capsule 500 mg (500 mg Oral Given 02/12/17 1154)New PrescriptionsCEPHALEXIN (KEFLEX) 500 MG CAPSULE Take 1 capsule by mouth 3 times daily for 7 days.71 y.o. female who presents with knee pain and dysuria. Physical exam is reassuring vital signsare unremarkable patient is not in any significant distress. Urine is red in color likelysecondary to her taking the Azo. She does have evidence of urinary tract infection. Urine hasbeen sent for culture. She will be started on Keflex. Physical exam of the right knee is veryunremarkable.A very low suspicion for acute DVT. Her legs bilaterally look normal. X-rays performed which doesnot show any significant pathology. The patient will follow up with her primary care doctor in [facility] in the next few days. She is discharged in good condition with appropriate follow-[facility] precautions.The patient's blood pressure is routinely monitored as part of the standard vital signs if it isfound to be elevated according to CMS/Medicare and the Affordable Care Act/ObamaCare criteria thenthe patient was educated on possible causes of this and were instructed to have this closelymonitored with their PCP for further outpatient evaluation and management.All incidental radiology findings were discussed with the patient.Initial differential diagnoses were discussed with this patient and/or guardian, along withphysical exam findings and an explanation what evaluation studies were necessary and why. Lab andImaging results were explained in detail, including explanation of what these results mean. Alltreatment and disposition options were discussed and a treatment plan with the patient's best shortand administrative technician care was made in collaboration with the patient or guardian. They are satisfied withthe diagnosis and state their understanding of the current plan of care.I have spoken to the attending physician about this patient and they agree with workup anddisposition.FINAL YGWSEFOESNVGV-[id number].Urina ry tract infection with hematuria, site zzkoxyinenhI73.0R31.92.Rig ht anterior knee painM25.561This chart has been completed using Yorn Dictation software, and while attempts have beenmade to ensure accuracy, certain words and phrases may not be transcribed as intended.Electronicallysig alfredo by:Lynnette Wilder, DO02/12/17 1222 Normal [facility] URINALYSIS MICROSCOPIC ONLYo n 02-12-2017 URINE RED BLOOD CELLS 20-50 Abnormal 0-3 [facility] Comment on above: Performed By: #### L [id number], [id number] ####[facility] CLIA [id number] [place] [address] URINE WHITE BLOOD CELLS 10-20 Abnormal 0-3 [facility] Comment on above: Performed By: #### L [id number], [id number] ####[facility] CLIA [id number] [place] [address] Urine, bacteria in sediment 1+ /hpf Abnormal Negative [facility] Comment on above: Performed By: #### L AB347, [id number] ####[facility] CLIA [id number] [place] [address] Urine, epithelial cells in sediment 0-3 Normal 0-3 [facility] Comment on above: Performed By: #### L [id number], [id number] ####[facility] CLIA [id number] [place] [address] URINALYSIS W/REFLEX MICROSCO PYon 02-12-2017 BILIRUBIN, UA Small Abnormal Negative [facility] Comment on above: Result Comment: Urin e bilirubin confirmation is no longer performed routinely. A serum total bilirubin or urine ictotest should be ordered if clinically indicated. Performed By: #### L [id number], [id number] ####[facility] CLIA [id number] [place] [address] BLOOD, UA Large Abnormal Negative [facility] Comment on above: Performed By: #### L AB347, [id number] ####[facility] CLIA [id number] [place] [address] GLUCOSE, UA 250.0 mg/dL Abnormal Negative [facility] Comment on above: Performed By: #### L AB347, [id number] ####[facility] CLIA [id number] [place] [address] KETONES, UA Negative Normal Negative [facility] Comment on above: Performed By: #### L AB347, [id number] ####[facility] CLIA [id number] [place] [address] LEUKOCYTES, UA Moderate Abnormal Negative [facility] Comment on above: Performed By: #### L AB347, [id number] ####[facility] CLIA [id number] [place] [address] PH, UA 6.5 Normal 5.0-8.0 [facility] Comment on above: Performed By: #### L AB347, [id number] ####[facility] CLIA [id number] [place] [address] PROTEIN, UA >=300 Abnormal Negative [facility] Comment on above: Performed By: #### L AB347, [id number] ####[facility] CLIA [id number] [place] [address] SPECIFIC GRAVITY, UA 1.005 Normal 1.001-1.035 [facility] Comment on above: Performed By: #### L AB347, [id number] ####[facility] CLIA [id number] [place] [address] Urine, appearance Clear Normal Clear [facility] Comment on above: Performed By: #### L AB347, [id number] ####[facility] CLIA [id number] [place] [address] Urine, color Yell Abnormal Yellow [facility] Comment on above: Result Comment: Due to color of urine some dipstick values may not be accurate. Performed By: #### L AB347, [id number] ####[facility] CLIA [id number] [place] [address] Urine, nitrite presence Positive Abnormal Negative [facility] Comment on above: Performed By: #### L AB347, [id number] ####[facility] CLIA [id number] [place] [address] UROBILINOGEN, UA 4.0 EU/dL Abnormal 0.2-1.0 [facility] Comment on above: Performed By: #### L AB347, [id number] ####[facility] CLIA [id number] [place] [address] XR-KNEE RIGHT 1-2 VIEWSon XR-KNEE RIGHT 1-2 VIEWS PROCEDURE: XR-KNEE RIGHT 1-2 VIEWSDATE OF EXAM: 02/12/2017 11:44 AMDEMOGRAPHICS: 71 years old Female INDICATION: knee pain x 2 days History: knee pain x 2 days. Number of Series/Images: 2. COMPARISON: No existing relevant imaging study corresponding to the same anatomical region is available.FINDINGS:2 views of the Right knee were obtained. Lateral view slightly limited due to obliquity. The osseous structures are intact. The joint spaces are maintained. There is no significant soft tissue swelling. IMPRESSION:Slightly limited study with no evidence for acute findings. 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 night patrol inspector 08-29-2016 Left ventricular Ejection fraction 60 % [facility] Work Phone: Office Visiton 09-03-2015 Dietary management education, guidance, and counseling (procedure) yes Invalid Interpretation Code [facility] Work Phone: Documentation of current medications (procedure) Done Invalid Interpretation Code [facility] Work Phone: Clinical Lists Update: Prelo night patrol inspector 07-09-2015 Alanine aminotransferase (ALT) 29 U/L [facility] Work Phone: Aspartate aminotransferase (AST) 18 U/L [facility] Work Phone: [phone] BUN/Creatinine Ratio 24.7 mg/mg [facility] Work Phone: [phone] Calcium 8.6 mg/dL [facility] Work Phone: [phone] Chloride 104 mmol/L [facility] Work Phone: [phone] CO2 26.0 mmol/L Invalid Interpretation Code [facility] Work Phone: [phone] CO2 ppres (BldV) 26.0 mmol/L [facility] Work Phone: [phone] Creatinine 0.65 mg/dL [facility] Work Phone: [phone] Hematocrit (HCT) 43.0 % Invalid Interpretation Code [facility] Work Phone: [phone] Hematocrit Volume Fraction (Bld) 43.0 % [facility] Work Phone: [phone] Hemoglobin (HGB) 13.8 g/dL [facility] Work Phone: [phone] Platelets 259 10*3/mm3 Invalid Interpretation Code [facility] Work Phone: [phone] Platelets #/vol (Bld) 259 10*3/mm3 [facility] Work Phone: [phone] Potassium 4.0 mmol/L [facility] Work Phone: [phone] Sodium 138 mmol/L [facility] Work Phone: [phone] Thyroid stimulating hormone (TSH) 0.63 u[iU]/mL [facility] Work Phone: [phone] Urea nitrogen 16 mg/dL [facility] Work Phone: [phone] WBC #/vol (Bld) 10.9 10*3/uL [facility] Work Phone: [phone] WBC (Leukocytes) 10.9 10*3/uL Invalid Interpretation Code [facility] Work Phone: [phone] Clinical Lists Update: Prelo night patrol inspector 01-05-2015 Albumin 3.8 g/dL [facility] Work Phone: [phone] Alkaline phosphatase (ALP) 76 U/L Invalid Interpretation Code [facility] Work Phone: [phone] ALP enzyme act/vol (Bld) 76 U/L [facility] Work Phone: [phone] Anion gap 9 mmol/L Invalid Interpretation Code [facility] Work Phone: [phone] Anion gap molar conc 9 mmol/L [facility] Work Phone: [phone] Bilirubin (total) 0.30 mg/dL [facility] Work Phone: [phone] Erythrocytes (RBC) 4.37 10*6/uL Invalid Interpretation Code [facility] Work Phone: [phone] Glucose 127 mg/dL High [facility] Work Phone: [phone] Glucose mass conc 127 mg/dL High [facility] Work Phone: [phone] MCH 31.4 pg Invalid Interpretation Code [facility] Work Phone: [phone] MCH Entitic mass (RBC) 31.4 pg [facility] Work Phone: [phone] MCHC 32.8 g/dL Invalid Interpretation Code [facility] Work Phone: [phone] MCHC mass conc (RBC) 32.8 g/dL [facility] Work Phone: [phone] MCV 95.7 fL Invalid Interpretation Code [facility] Work Phone: [phone] MCV Entitic volume (RBC) 95.7 fL [facility] Work Phone: [phone] RBC #/vol (Bld) 4.37 10*6/uL [facility] Work Phone: [phone] Office Visiton 02-09-2014 Tobacco smoking status NHIS Former smoker [facility] Work Phone: [phone] Tobacco use [facility] Former smoker Invalid Interpretation Code [facility] Work Phone: [phone] Replaced Document: [facility] E CG Observationson 02-09-2014 EKG QRS axis -10 deg [facility] Work Phone: [phone] electrocardiogram interpretation Sinus Rhythm WITHIN NORMAL LIMITS Invalid Interpretation Code [facility] Work Phone: [phone] GE use only - for LinkLogic import when terms are not otherwise specified 390 ms Invalid Interpretation Code [facility] Work Phone: [phone] Interpretation Sinus Rhythm WITHIN NORMAL LIMITS [facility] Work Phone: P [place] 43 deg [facility] Work Phone: P wave axis, electrocardiogram 43 deg Invalid Interpretation Code [facility] Work Phone: UT Interval 148 ms [facility] Work Phone: UT interval, electrocardiogram 148 ms Invalid Interpretation Code [facility] Work Phone: [phone] Pulse (Heart Rate) 68 /min Invalid Interpretation Code [facility] Work Phone: QRS axis, electrocardiogram -10 deg Invalid Interpretation Code [facility] Work Phone: [phone] QRS Duration 90 ms [facility] Work Phone: [phone] QRS duration, electrocardiogram 90 ms Invalid Interpretation Code [facility] Work Phone: [phone] QT Interval new path ms [facility] Work Phone: [phone] QT interval, electrocardiogram new path ms Invalid Interpretation Code [facility] Work Phone: [phone] QTc Álvarez 390 ms [facility] Work Phone: [phone] T Wolcott 18 deg [facility] Work Phone: [phone] T wave axis, electrocardiogram 18 deg Invalid Interpretation Code [facility] Work Phone: [phone] Lab Reporton 12-27-2012 Cholesterol 336 mg/dL [facility] Work Phone: [phone] Cholesterol to HDL Ratio 4.6 {ratio} [facility] Work Phone: HDL Cholesterol 73 mg/dL [facility] Work Phone: LDL Cholesterol 234 mg/dL [facility] Work Phone: Triglyceride 141 mg/dL [facility] Work Phone: Clinical Lists Update: Prelo night patrol inspector 02-11-2011 very low density lipoproteins 19 mg/dL [facility] Work Phone: [phone] Vital Signs Date Time Vital Sign Value Performing Clinician Mónica abrams 09-01-2016 10:18-0400 BMI (Body Mass Index) 26.95 kg/m2 [facility]avinder [facility] Work Phone: 09-01-2016 10:18-0400 BP Diastolic 80 mm[Hg] Stacie Santy [facility] Work Phone: 09-01-2016 10:18-0400 BP Systolic 140 mm[Hg] Stacie Santy [facility] Work Phone: 09-01-2016 10:18-0400 Height 156.21 cm Stacie Santy [facility] Work Phone: 09-01-2016 10:18-0400 Pulse (Heart Rate) 64 /min [facility] Work Phone: 09-01-2016 10:18-0400 Respiratory Rate 16 /min Stacie Santy [facility] Work Phone: 09-01-2016 10:18-0400 Weight 65.77 kg [facility] Work Phone: 09-03-2015 10:54-0400 BMI (Body Mass Index) 25.28 kg/m2 [facility] Work Phone: 09-03-2015 10:54-0400 BP Diastolic 64 mm[Hg] Bianca Jacob RN [facility] Work Phone: 09-03-2015 10:54-0400 BP Systolic 136 mm[Hg] Bianca Jacob RN [facility] [...] Phone: 02-09-2014 15:00-0500 Heart rate 68 /min [facility] Work Phone: 05-29-2011 12:06-0500 Body Temperature 97.6 [degF] [facility] Work Phone: 03-05-2011 16:11-0500 Height 156.21 cm [facility] Work Phone: Encounters Encounter Date Encounter Type Care Provider Facility Start: 02-27-2022 End: 03-05-2022 Evaluation and management of inpatient [facility] Start: 02-12-2017 End: 02-12-2017 Emergency department patient visit [facility] Procedures Date Procedure Procedure Detail Performing [...] Jose E Aaron Start: 02-09-2014 End: 02-09-2014 PFDedra Soria MD Start: 01-26-2013 End: 01-26-2013 Follow [...] Author Start: 08-31-2017 End: 08-31-2017 Appointment Appointment [facility] Work Phone: Start: 09-01-2016 End: 09-01-2016 Appointment Appointment [facility] Work Phone: Start: 09-01-2016 End: 09-01-2016 Follow Up Appt 1 year Follow Up Appt 1 year [facility] Work Phone: Start: 09-01-2016 End: 09-01-2016 PFM PFM [facility] Work Phone: Start: 09-03-2015 End: 09-03-2015 Follow Up Appt 1 year Follow Up Appt 1 year [facility] Work Phone: Start: 09-03-2015 End: 09-03-2015 PFM PFM [facility] Work Phone: Start: 02-09-2014 End: 02-09-2014 Follow Up Appt 1 year Follow Up Appt 1 year [facility] Work Phone: Start: 02-09-2014 End: 02-09-2014 Follow Up Appt Other Follow Up Appt Other [facility] Work Phone: Start: 02-09-2014 End: 02-09-2014 PFM PFM [facility] Work Phone: Start: 01-26-2013 End: 01-26-2013 Follow Up Appt 1 year Follow Up Appt 1 year [facility] Work Phone: Start: 01-26-2013 End: 01-26-2013 Follow Up Appt Other Follow Up Appt Other [facility] Work Phone: Start: 01-26-2013 End: 01-26-2013 PFM PFM [facility] Work Phone: Start: 03-05-2012 End: 03-05-2012 Follow Up Appt 1 year Follow Up Appt 1 year [facility] Work Phone: Start: 09-01-2011 End: 09-01-2011 Follow Up Appt 6 months Follow Up Appt 6 months [facility] Work Phone: Start: 03-05-2011 End: 03-05-2011 Follow Up Appt 6 months Follow Up Appt 6 months [facility] Work Phone: Start: 03-05-2011 End: 03-06-2011 Gastroenterology Referral Gastroenterology Referral James Heredia, [facility], [address] [place], [address] [facility] Work Phone: Payers Date Payer Category Payer [facility] [id number] 2009 Medicare [id number] Discharge summary note 03-05-2022 Note Date & Type Note Facility 03-05-2022 Note Hospitalist Discharg e Summary Nneka Montgomery : 1945 Admit date: 02/27/2022 Discharge date: 03/05/2022 Admitting Physician: Kraig Vidales MD Primary Care Physician: No primary care [...] HYDROcodone-acetaminophen 5-325 MG tablet Commonly known as: Rydal warfarin 1 MG tablet Commonly known as: [...] Complexity: follow up within 7-14 calendar days (47336) [x] Severe Complexity: follow up within 7 calendar days (64635) Follow up Testing, Pending results or Referrals [...] MD Division of Hospitalist Medicine Inpatient Medical Services/[facility] 03/05/2022 [facility] Clinical Note 03-04-2022 Note Date & Type Note Facility 03-04-2022 Note Hospitalist Progress Note 03/04/2022 Subjective: Admit Date: 02/27/2022 PCP: No primary care provider on file. Room#: -7698/5217 A Interval History: No overnight issues. Up in chair. Denies numbness tingling. Chronic urinary incontinent. Denies chest pain, sob, abdominal pain, nausea, vomiting, diarrhea, constipation, fevers, or chills. Adult diet Regular 3 Day Weight Change: Unable to Calculate 24HR INTAKE/OUTPUT: No intake or output data in the 24 hours ending 03/04/22950 Past Medical History: Past Medical History: Diagnosis Date Anemia Factor V Leiden (CMS/HCC) (HCC) Fibromyalgia Gastritis GERD (gastroesophageal reflux disease) Hiatal hernia Migraines Osteoporosis Rectocele LABS: CBC: Recent Labs 03/02/22101 WBC 8.0 RBC 3.65* HGB 11.6* HCT [...] TID, Bianca Clark DO, 1,000 mg at 12/13/22 0842 cholecalciferol (Vitamin D-3) tablet 50 mcg, 2,000 Units, Oral, Daily, Bianca Clark DO, 50 mcg at 03/04/22 0842 furosemide (Lasix) tablet 40 mg, 40 mg, Oral, Daily, Bianca Clark DO, 40 mg at 03/04/22 0842 Influenza Vac A&B SA Adj quadrivalent (Fluad) [...] MELANY Yu CNP, 17 g at 03/03/22 1442 potassium chloride CR (Klor-Con M10) ER tablet [...] 40 mg, 40 mg, Oral, PRN, Bianca Eduardo, DO sodium chloride 0.9 % infusion, 5-250 mL/hr, IntraVENous, PRN, Bianca Eduardo, DO Assessment Thoracic epidural hematoma T3-T8 Factor [...] MD Division of Hospitalist Medicine Inpatient Medical Services/[facility] Clinical Note 02-27-2022 Note Date & Type [...] didn't), for which patient was transferred to [facility] ICU. PLAN: 1. Neuro/Spine: 13cm spinal [...] Renal: normal renal function, allen placed at [place] --> discontinue allen 6. Hem: Factor V Leiden on coumadin, history of remote DVT/PE - received Kcentra at [place] --> INR 2 -> 1.1 - will [...] MD Division of Trauma Department of Surgery [facility] Pager: [phone] Kristin Saenz MD Division of Trauma Department of Surgery [facility] Pager: [phone] [facility] H&P 02/27/2022 6:12 AM Attending: Dr. Vidales Level of Initial Activation: Direct Admit Upgraded: No To:N/A Mechanism of Arrival:Transfer from [place] ED Chief Complaint: back pain History of Traumatic Injury: 76 year old female with history of factor V Leiden, hx of DVT and PE on coumadin presents as an emergent transfer from [facility] ED to [facility] ICU for 13 cm epidural hematoma from [...] experienced any of the following: fever, cough, kzhwtetgo-[id number], myalgias, loss of taste/smell, diarreha/GI symptoms? No [...] education level: No (more content not included)... [employer] [facility] Summary Purpose Family History No Family History Records FoundNo Family History Records Found Advance Directives No Advanced Directives Records FoundNo Advanced Directives Records Found Additional Source Comments INFORMATION SOURCE (unrecogn ized section and content) DATE CREATED AUTHOR 09/15/2017 [facility] DATE CREATED AUTHOR AUTHOR'S ORGANIZ ATION 03/12/2022 [employer] [facility] FOR RECORDS PERTAINING TO PATIENTS WHO ARE [...] BE BASED ON THE PRIMARY CLINICAL RECORDS. [facility] [employer], [facility]. provides no warranty or guarantee of the accuracy or completeness of information in this document.
== END | disposition home or self-care (01) ==
LOC: OPBI 12:13
PROVIDERS: PCP Internal Medicine; Referring Provider Internal Medicine; Visit Provider Internal Medicine
DX: Z12.31 Encounter for screening mammogram for malignant neoplasm of breast (principal)
CPT/HCPCS: 77063; 77067

== ENCOUNTER → 2024-01-26 | Outpatient (CLI) | payer MEDICARE, BC, SELFPAY ==
[2024-01-26 11:28] LABS: Amphetamine Urine VISTA NEGATIVE (<1000 ng/mL); Barbiturate Urine VISTA NEGATIVE (< 200 ng/mL); Benzodiazepine Urine VISTA NEGATIVE (< 200 ng/mL); Cocaine Urine VISTA NEGATIVE (< 300 ng/mL); Ecstacy Urine VISTA NEGATIVE (< 500 ng/mL); Methadone Urine VISTA NEGATIVE (< 300 ng/mL); PCP Urine VISTA NEGATIVE (< 25 ng/mL); THC Urine VISTA NEGATIVE (< 50 ng/mL); Vista UDS pH Range 6
== END | disposition home or self-care (01) ==
LOC: LAB 10:39
PROVIDERS: PCP Internal Medicine; Referring Provider Anesthesiology Pain Medicine; Visit Provider Anesthesiology Pain Medicine
DX: F11.20 Opioid dependence, uncomplicated (principal)
CPT/HCPCS: 80307

== ENCOUNTER → 2024-01-28 | Outpatient (CLI) | payer MEDICARE, BC, SELFPAY | END | disposition home or self-care (01) | LOC: OPBI 14:20 | PROVIDERS: PCP Internal Medicine; Referring Provider Internal Medicine; Visit Provider Internal Medicine | DX: R92.1 Mammographic calcification found on diagnostic imaging of breast (principal) | CPT/HCPCS: 77065 ==

== ENCOUNTER → 2024-06-08 | Outpatient (CLI) | payer MEDICARE, BC, SELFPAY ==
[2024-06-08 16:48] LABS: Absolute Lymphocyte Count 3.02 X10^3/uL (0.83-4.51); Absolute Neutrophil Count 5.5 X10^3/uL (2.0-7.7); Basophil# 0.06 X10^3/uL; Basophil% 0.6 % (0-1); Eosinophils% 2.1 % (0-5); Hematocrit 38.1 % (37-47); Hemoglobin 12.5 g/dL (12.0-15.0); Lymphocyte # 3.02 X10^3/ul (0.83-4.51); Lymphocyte % 31.2 % (19-41); Mean Corp Hgb Conc 32.8 g/dL (32-36); Mean Corpuscular Hgb 32.1 pg (27.0-32.0); Mean Corpuscular Volume 97.7 fL (81-99); Mean Platelet Vol. 11.2 fl (6.2-12.0); Monocyte# 0.83 X10^3/uL; Monocyte% 8.6 % (0-10); NRBC Flagged by Analyzer 0 % (0-5); Neutrophil # 5.53 X10^3/uL (2.7-7.7); Platelet Count 275 K/mm3 (150-450); RBC Distribution Width CV 13.2 % (11.6-14.6); White Blood Count 9.7 K/mm3 (4.4-11.0)
[2024-06-08 18:13] LABS: ALB/GLOB Ratio 1.4 RATIO (0.9-2.4); AST(SGOT) 21 U/L (<=31); Alanine Aminotransfer ALT/SGPT 22 U/L (<=34); Albumin, Serum 4.2 g/dL (3.4-4.8); Alkaline Phosphatase 46 U/L (35-104); Anion Gap 11 (5-15); BUN 11 mg/dL (4-19); BUN/Creat Ratio 16.1 RATIO (10-20); Carbon Dioxide 25.6 mmol/L (21.0-32.0); Chloride 98 mmol/L (98-108); Creatinine, Serum 0.67 mg/dL (0.70-1.20); EST Glomerular Filtration Rate 89 (>60); Globulin 2.9 g/dL (2.2-4.2); Glucose 119 mg/dL (70-99); Potassium 4.4 mmol/L (3.3-5.1); Protein, Total 7.1 g/dL (5.9-8.4); Sodium Level 135 mmol/L (133-145); Total Bilirubin 0.19 mg/dL (0.00-1.30)
[2024-06-08 18:19] LABS: Vitamin D,25 Hydroxy 42.4 ng/mL (30-100)
== END | disposition home or self-care (01) ==
LOC: BIMLAB 14:40
PROVIDERS: PCP Internal Medicine; Referring Provider Internal Medicine; Visit Provider Internal Medicine
DX: F32.A Depression, unspecified (principal); M81.0 Age-related osteoporosis without current pathological fracture
CPT/HCPCS: 36415; 80053; 82306; 85025

== ENCOUNTER → 2024-12-09 | Outpatient (CLI) | payer MEDICARE, BC, SELFPAY ==
[2024-12-09 14:27] LABS: Mucous, Urine 0 SEEN /hpf (<or=2+); Red Blood Cells-Urine 0 SEEN /hpf (0-5)
[2024-12-09 15:50] LABS: Color, Urine Straw (Yellow); Glucose, Dipstick Normal (Normal); Ketone-Dipstick Negative (Negative); Leukocyte Esterase-Dipstick Negative /ul (Negative); Nitrite-Dipstick Negative (Negative); Occult Blood-Urine Negative /ul (Negative); Protein-Dipstick Negative (Negative); Specific Gravity, Urine 1.005 (1.002-1.030); Urine Bilirubin Dipstick Negative (Negative)
[2024-12-09 17:43] LABS: Squamous Epithelial Cells - UA 10-25 SEEN /hpf (5-10)
[2024-12-09 17:44] LABS: Transitional Epithelial - Ur 0-5 SEEN /hpf (0-5)
== END | disposition home or self-care (01) ==
LOC: BIMLAB 14:26
PROVIDERS: PCP Internal Medicine; Referring Provider Internal Medicine; Visit Provider Internal Medicine
DX: N39.0 Urinary tract infection, site not specified (principal)
CPT/HCPCS: 81001

== ENCOUNTER → 2024-12-09 | Outpatient (CLI) | payer MEDICARE, BC, SELFPAY ==
[2024-12-09 15:20] LABS: Hematocrit 39.4 % (37-47); Hemoglobin 13.1 g/dL (12.0-15.0); Immature Granulocytes Count 0.050 X10^3/uL (0.0-0.0); Mean Corp Hgb Conc 33.2 g/dL (32-36); Mean Corpuscular Volume 93.6 fL (81-99); Mean Platelet Vol. 11.0 fl (6.2-12.0); NRBC Flagged by Analyzer 0 % (0-5); Platelet Count 264 K/mm3 (150-450); RBC Distribution Width CV 12.7 % (11.6-14.6); RBC Distribution Width SD 43.8 fl (35.1-43.9); Red Blood Count 4.21 M/mm3 (4.2-5.4); White Blood Count 11.4 K/mm3 (4.4-11.0)
[2024-12-09 15:55] LABS: AST(SGOT) 22 U/L (<=31); Alanine Aminotransfer ALT/SGPT 19 U/L (<=34); Albumin, Serum 4.3 g/dL (3.4-4.8); Alkaline Phosphatase 44 U/L (35-104); Anion Gap 12 (5-15); BUN 12 mg/dL (4-19); BUN/Creat Ratio 18.1 RATIO (10-20); Calcium,Total 9.5 mg/dL (7.6-11.0); Carbon Dioxide 23.6 mmol/L (21.0-32.0); Chloride 100 mmol/L (98-108); Globulin 3.1 g/dL (2.2-4.2); Glucose 90 mg/dL (70-99); Potassium 4.2 mmol/L (3.3-5.1)
== END | disposition home or self-care (01) ==
LOC: BIMLAB 13:26
PROVIDERS: PCP Internal Medicine; Referring Provider Internal Medicine; Visit Provider Internal Medicine
DX: I10 Essential (primary) hypertension (principal); E78.5 Hyperlipidemia, unspecified
CPT/HCPCS: 36415; 80053; 85025

== ENCOUNTER → 2025-01-25 | Outpatient (CLI) | payer MEDICARE, BC, SELFPAY ==
--- NOTE | 2025-01-25 | CYSPIN_PTH ---
PATIENT: CARL MONTGOMERY LOC: [facility] U#:[id number] AGE/SX: 79/F ROOM: RE01/25/[address]: Dr. Katya Mcleod MD : 1945 BED: DIS: 01/25/2025 SPEC #: [id number] RECD: 01/25/25 15:20 STATUS: STACY REQ #: [id number] JAY: 01/25/25 00:[address]: Katya Mcleod DEPT: CYTOLOGY RECD BY: Mars Borja ENTERED: 01/26/25 08:38 SP TYPE: CYSPIN FL OTHR DR: Dr. Corky Mensah MD Tissues: A - Urine Procedures: Pap Stain (control) Special Stain Group II Cytospin Fluid HEADER OPERATION: Not noted PRE-OP DIAGNOSIS: Gross hematuria TISSUE SUBMITTED: A- Urine for cytology - voided DIAGNOSIS CYTOLOGY A. Urine, voided (cytospin): - Few atypical cells, negative for high grade urothelial carcinoma. CYTOLOGY STUDY Slides are reviewed. CYTOLOGY GROSS A. Received is 45 ml of yellow-hazy fluid labeled with the patient's name and and designated per the requisition as urine. Submitted for cytology preparation. Mr 01/26/2025 CPT: 03761
[2025-01-25 16:41] LABS: Cytology, Body Fluid / CSF SEE PATHOLOGY REPORT
--- OUTSIDE RECORDS SUMMARY | 2025-01-25 18:19 | XMS RPT_ITS | CCD ---
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 1 tablet by mouth once daily as needed PRILOSEC 40 MG CPDR One tablet by mouth daily as needed OMEPRAZOLE [id number] Amisha Vang RN ONABOTULINUMTOXINA SOLR (4 sources) Start: 02-09-2014 BOTOX SOLR dawn ry 3 months for migraines ONABOTULINUMTOXINA SOLR [id number] Jose E Soria MD Start: 02-09-2014 End: 09-03-2015 BOTOX SOLR every 3 months fo r migraines ONABOTULINUMTOXINA SOLR [id number] Jose E Soria MD ondansetron 4 mg disintegrating oral tablet (17 sources) Serotonin-3 Receptor Antagonist Start: 12-22-2020 End: 09-05-2022 take 1 tablet by mouth every eight hours as needed for nausea and vomiting Ondansetron 4 mg tablet,disintegrating Discontinued 4 mg PO Q8H as needed for nausea and vomiting 10 0 December 22, 2020 12:00am September 05, 2022 1:32pm Start: 09-03-2015 ZOFRAN 4 MG TA BS As needed ONDANSETRON HCL [id number] Jose E Soria MD Start: 09-03-2015 ZOFRAN 4 MG TA BS As needed ONDANSETRON HCL [id number] Jose E Soria MD potassium chloride 20 meq extended release oral tablet (20 sources) Start: 09-05-2022 End: 12-09-2023 take 1 tablet by mouth once daily Potassium Chloride 20 mEq tablet extended release Discontinued 20 meq PO DAILY 90 2 April 27, 2023 6:20pm December 09, 2023 1:37pm predniSONE 10 mg oral tablet (8 sources) Corticosteroid Start: 01-26-2013 End: 02-09-2014 PREDNISONE 10 MG TABS x 7 days PREDNISONE [id number] Jose E Soria MD promethazine hydrochloride 25 mg oral tablet (20 sources) Phenothiazine Start: 09-05-2022 End: 04-21-2023 take 1 tablet by mouth twice daily as needed for nausea and vomiting Promethazine 25 mg tablet Discontinued 25 mg PO TWICE A DAY as needed for nausea and vomiting 90 3 September 05, 2022 12:00am April 21, 2023 6:39am Start: 12-22-2020 End: 09-05-2022 take 25 mg rectal route every six hours as needed for nausea Promethazine (Promethegan) 25 MG suppository Discontinued 25 mg RECTAL EVERY 6 HOURS NEEDED as needed for Nausea 6 0 December 22, 2020 12:00am September 05, 2022 3:34pm Start: 12-17-2016 End: 07-05-2020 take 1 tablet by mouth every eight hours as needed Promethazine 25 MG tablet Discontinued 25 mg PO EVERY 8 HOURS NEEDED as needed for MIGRAINES December 17, 2016 12:00am July 05, 2020 1:06pm raNITIdine 300 mg oral tablet (7 sources) Histamine-2 Receptor Antagonist Start: 09-03-2015 End: 09-01-2016 take 1 tablet by mouth once daily ZANTAC 300 MG TABS One tablet by mouth daily RANITIDINE HCL [id number] Jose E Soria MD vitamin b 12 1 mg oral tablet (8 sources) Vitamin B12 Start: 03-05-2012 End: 09-03-2015 take 1 tablet by mouth once daily VITAMIN B-12 1000 MCG TABS One tablet by mouth daily CYANOCOBALAMIN [id number] Jose E Soria MD warfarin sodium 4 mg oral tablet (20 sources) Vitamin K Antagonist Start: 08-23-2021 End: 09-05-2022 take 4.5 mg by mouth every other day Warfarin 4 mg Tablet Discontinued 4.5 mg PO EVERY OTHER DAY August 23, 2021 12:00am September 05, 2022 1:34pm Start: 08-23-2021 End: 09-05-2022 take 4.5 mg by mouth every other day Warfarin Discontinued 4.5 MG PO EVERY OTHER DAY August 23, 2021 12:00am September 05, 2022 1:34pm Start: 10-13-2013 take 4.5 mg by mouth once daily Warfarin Active 4.5 MG PO DAILY October 13, 2013 9:46am Start: 10-13-2013 End: 09-05-2022 take 4.5 mg by mouth every other day Warfarin 5 MG tablet Discontinued 4.5 mg PO EVERY OTHER DAY October 13, 2013 12:00am September 05, 2022 1:34pm Blood Thinner Start: 10-13-2013 End: 09-05-2022 take 4.5 mg by mouth every other day Warfarin Discontinued 4.5 MG PO EVERY OTHER DAY October 13, 2013 12:00am September 05, 2022 1:34pm Start: 08-25-2011 COUMADIN 5 MG TABS Take as directed WARFARIN SODIUM [id number] Perri Talbert RN 100 ml zoledronic acid 0.05 mg/ml injection (20 sources) Bisphosphonate Start: 04-20-2023 End: 04-04-2024 Zoledronic Yafr-Yvtnklkw-Ipipg (Reclast) 5 mg/100 mL piggyback Discontinued 1 NMA IV .Yearly 100 April 29, 2023 12:07pm April 04, 2024 5:31pm Start: 04-20-2023 End: 04-29-2023 Zoledronic Befa-Fiwgknht-Ymg er (Reclast) 5 mg/100 mL piggyback Active 1 EACH IV .Yearly April 29, 2023 12:07pm Start: 09-05-2022 End: 03-20-2023 Zoledronic Epib-Ofobiytf-Zxt er (Reclast) 5 mg/100 mL piggyback Discontinued NMA .Route September 05, 2022 12:00am March 20, 2023 4:25pm Infusion one time per year Problems Active Problems Problem Classification Problem Date Documented Da te Episodic/Chronic Acute myocardial infarction (13 sources) Myocardial infarction; Translations: [Non-ST elevation (NSTEMI) myocardial infarction] 08-04-2020 Chronic Allergic reactions (5 sources) Inflammatory dermatosis; Translations: [Dermatitis, unspecified] 06-08-2024 Episodic Blindness and vision defects (8 sources) Diplopia; Translations: [Diplopia] 04-30-2023 Episodic Cardiac dysrhythmias (8 sources) Bradycardia; Translations: [Sinus bradycardia] Onset: 1 09-03-2015 Chronic Cardiac dysrhythmias (13 sources) Sinus bradycardia; Translations: [Bradycardia, unspecified] 08-04-2020 Episodic Chronic obstructive pulmonary disease and bronchiectasis (10 sources) Chronic bronchitis; Translations: [Unspecified chronic bronchitis] 09-05-2022 Chronic Chronic ulcer of skin (13 sources) Superficial skin ulcer of lower limb; Translations: [Non-pressure chronic ulcer of other part of right lower leg limited to breakdown of skin] 07-23-2018 Chronic Coagulation and hemorrhagic disorders (15 sources) Heterozygous Factor V Leiden mutation; Translations: [Activated protein C resistance] Onset: Chronic Deficiency and other anemia (10 sources) Anemia; Translations: [Anemia, unspecified] 09-05-2022 Episodic Diabetes mellitus without complication (14 sources) Type 2 diabetes mellitus; Translations: [Type 2 diabetes mellitus without complications] Onset: 5 08-04-2020 Chronic Diabetes mellitus without complication (20 sources) Prediabetes; Translations: [Prediabetes] Onset: 5 07-23-2018 Episodic Diseases of mouth; excluding dental (4 sources) Glossitis; Translations: [Glossitis] 08-20-2023 Episodic Diseases of white blood cells (18 sources) Leukocytosis; Translations: [Elevated white blood cell count, unspecified] 04-20-2023 Chronic Disorders of lipid metabolism (18 sources) Hyperlipidemia; Translations: [Hyperlipidemia, unspecified] Onset: 1 03-04-2011 Chronic E Codes: Adverse effects of medical drugs (13 sources) Adverse effect of other viral vaccines, initial encounter; Translations: [Adverse effect of COVID-19 vaccine] 12-22-2020 Episodic Esophageal disorders (14 sources) Gastroesophageal reflux disease; Translations: [Gastro-esophageal reflux disease without esophagitis] 03-06-2023 Chronic Essential hypertension (6 sources) Hypertensive disorder; Translations: [Essential (primary) hypertension] Onset: 5 12-09-2023 Chronic Fever of unknown origin (20 sources) Feeling feverish; Translations: [Fever, unspecified] 09-01-2021 Episodic Genitourinary symptoms and ill-defined conditions (20 sources) Genuine stress incontinence; Translations: [Stress incontinence (female) (male)] 01-18-2019 Chronic Genitourinary symptoms and ill-defined conditions (20 sources) Hematuria, unspecified; Translations: [Nocturia] Onset: 7 09-01-2021 Episodic Headache; including migraine (10 sources) Migraine; Translations: [Migraine, unspecified, not intractable, without status migrainosus] 09-05-2022 Chronic Headache; including migraine (6 sources) Headache; Translations: [Headache] 04-30-2023 Episodic Heart valve disorders (17 sources) Heart murmur; Translations: [Cardiac murmur, unspecified] Onset: 1 03-04-2011 Episodic Immunizations and screening for infectious disease (13 sources) Needs influenza immunization; Translations: [Encounter for immunization] 03-06-2023 Episodic Malaise and fatigue (20 sources) Asthenia; Translations: [Weakness] 04-20-2023 Episodic Mood disorders (19 sources) Depressive disorder; Translations: [Depression] 08-04-2020 Chronic Mood disorders (1 source) Mood disorders; Translations: [Depression, unspecified] Onset: Nausea and vomiting (13 sources) Nausea and vomiting; Translations: [Nausea with vomiting, unspecified] 12-30-2020 Episodic Nonspecific chest pain (20 sources) Chest pain, unspecified; Translations: [Chest pain] Onset: 1 03-04-2011 Episodic Nutritional deficiencies (13 sources) Vitamin D deficiency; Translations: [Vitamin D deficiency, unspecified] 12-19-2019 Chronic Open wounds of extremities (13 sources) Open wound of lower leg with complication; Translations: [Unspecified open wound, left lower leg, subsequent encounter] 10-05-2018 Episodic Osteoarthritis (10 sources) Arthritis; Translations: [Unspecified osteoarthritis, unspecified site] 09-05-2022 Chronic Osteoporosis (20 sources) Osteoporosis; Translations: [Age-related osteoporosis without current pathological fracture] 11-30-2020 Chronic Other aftercare (8 sources) Long-term current use of anticoagulant; Translations: [intermediate accountant (current) use of anticoagulants] 04-21-2023 Episodic Other aftercare (6 sources) senior care (current) use of anticoagulants; Translations: [Long-term (current) use of anticoagulants] 04-21-2023 Episodic Other connective tissue disease (4 sources) H/O: back problem; Translations: [Personal history of other diseases of the musculoskeletal system and connective tissue] 09-05-2022 Episodic Other diseases of veins and lymphatics (13 sources) Venous stasis edema of left lower limb; Translations: [Venous insufficiency (chronic) (peripheral)] 10-05-2018 Episodic Other fractures (7 sources) Fracture of rib; Translations: [Fracture of one rib, right side, initial encounter for closed fracture] 12-08-2020 Episodic Other fractures (20 sources) Compression fracture ; Translations: [Compression fracture] 09-25-2020 Episodic Other fractures (13 sources) Compression fracture of thoracic spine; Translations: [Wedge compression fracture of unspecified thoracic vertebra, initial encounter for closed fracture] 09-25-2020 Episodic Other fractures (6 sources) Fracture of right rib; Translations: [Fracture of one rib, right side, initial encounter for closed fracture] 12-08-2020 Episodic Other fractures (3 sources) Collapsed vertebra, not elsewhere classified, site unspecified, initial encounter for fracture; Translations: [Collapsed vertebra, not elsewhere classified, site unspecified, initial encounter for fracture] Onset: Episodic Other gastrointestinal disorders (5 sources) Finding of abdomen; Translations: [Other specified symptoms and signs involving the digestive system and abdomen] 07-24-2023 Episodic Other gastrointestinal disorders (1 source) Other specified symptoms and signs involving the digestive system and abdomen; Translations: [Other symptoms involving abdomen and pelvis] 07-24-2023 Episodic Other hematologic conditions (11 sources) H/O: blood disorder; Translations: [Personal history of diseases of the blood and blood-forming organs and certain disorders involving the immune mechanism] 03-07-2022 Episodic Other inflammatory condition of skin (9 sources) Seborrheic dermatitis; Translations: [Seborrheic dermatitis, unspecified] 03-06-2023 Episodic Other inflammatory condition of skin (4 sources) Seborrheic dermatitis, unspecified; Translations: [Seborrheic dermatitis, unspecified] 03-06-2023 Episodic Other injuries and conditions due to external causes (9 sources) Open wound with complication; Translations: [Other injury of unspecified body region, initial encounter] 10-05-2018 Episodic Other injuries and conditions due to external causes (4 sources) Open wound; Translations: [Other injury of unspecified body region, initial encounter] 07-02-2018 Episodic Other injuries and conditions due to external causes (12 sources) H/O: hip fracture; Translations: [Personal history of (healed) traumatic fracture] Episodic Other injuries and conditions due to external causes (1 source) Personal history of (healed) traumatic fracture; Translations: [Personal history of (healed) traumatic fracture] Onset: Episodic Other lower respiratory disease (8 sources) Hypoxia; Translations: [Hypoxemia] 04-20-2023 Episodic Other lower respiratory disease (2 sources) Hypoxemia; Translations: [Hypoxemia] 04-21-2023 Episodic Other non-traumatic joint disorders (9 sources) Hip pain; Translations: [Pain in left hip] 03-06-2023 Episodic Other non-traumatic joint disorders (4 sources) Pain in left hip; Translations: [Pain in joint, pelvic region and thigh] 03-06-2023 Episodic Other nutritional; endocrine; and metabolic disorders (13 sources) Obesity; Translations: [Obesity, unspecified] 07-23-2018 Chronic Other nutritional; endocrine; and metabolic disorders (11 sources) H/O: diabetes mellitus; Translations: [Personal history of other endocrine, nutritional and metabolic disease] 03-07-2022 Episodic Other upper respiratory disease (10 sources) Seasonal allergy; Translations: [Other seasonal allergic rhinitis] 09-05-2022 Chronic Other upper respiratory infections (16 sources) Upper respiratory infection; Translations: [Acute upper respiratory infection, unspecified] 04-16-2023 Episodic Phlebitis; thrombophlebitis and thromboembolism (19 sources) Deep venous thrombosis; Translations: [H/O: Deep vein thrombosis] Onset: 2 09-01-2011 Episodic Pulmonary heart disease (15 sources) Pulmonary embolism; Translations: [H/O: pulmonary embolus] Onset: 2 09-01-2011 Episodic Residual codes; unclassified (6 sources) Hypoxia; Translations: [Idiopathic sleep related nonobstructive alveolar hypoventilation] 06-08-2023 Chronic Residual codes; unclassified (2 sources) Idiopathic sleep related nonobstructive alveolar hypoventilation; Translations: [Idiopathic sleep related non-obstructive alveolar hypoventilation] 06-08-2023 Chronic Respiratory failure; insufficiency; arrest (adult) (14 sources) Acute hypoxemic respiratory failure; Translations: [Acute respiratory failure with hypoxia] 04-21-2023 Episodic Spinal cord injury (11 sources) Spinal epidural hematoma; Translations: [Spinal epidural hematoma] 12-16-2022 Chronic Substance-related disorders (1 source) Opioid dependence, uncomplicated; Translations: [Opioid dependence, uncomplicated] Onset: 4 Chronic Thyroid disorders (13 sources) Nodular goiter ; Translations: [Nontoxic goiter, unspecified] 12-19-2019 Chronic Unclassified (1 source) Dysuria / [id number]() Onset: 7 Unclassified (1 source) Knee Pain / [id number]() Onset: 7 Unclassified (1 source) Unknown / UNK(Unknown) Onset: 7 Unclassified (1 source) Epidural hemorrhage with loss of consciousness status unknown, initial encounter; Translations: [Epidural hemorrhage with loss of consciousness status unknown, initial encounter] Onset: 2 Unclassified (6 sources) H/O: back problem; Translations: [History of back problems] 09-05-2022 Unclassified (6 sources) Z87.81 - Personal history of (healed) traumatic fracture Unclassified (3 sources) R31.9 - Hematuria, unspecified Urinary tract infections (7 sources) Urinary tract infection, site not specified; Translations: [Urinary tract infectious disease] Onset: 7 07-24-2023 Episodic Viral infection (14 sources) Disease caused by 2019-nCoV; Translations: [COVID-19] 04-16-2023 Episodic Past or Other Problems Problem Classification Problem Date Documented Date Episodic/Chronic Nonmalignant breast conditions (1 source) Mammographic calcification found on diagnostic imaging of breast; Translations: [Mammographic calcification found on diagnostic imaging of breast] Onset: 05-05-2024 Episodic Other inflammatory condition of skin (4 [...] 26.0-26.9, adult] Onset: 09-01-2016 09-01-2016 Episodic Other screening for suspected conditions (not mental disorders or infectious disease) (20 sources) Deviation of international normalized ratio from target range; Translations: [Abnormal coagulation profile] Onset: 02-09-2024 08-04-2020 Episodic Other skin disorders (4 sources) Senile hyperkeratosis; Translations: [Inflamed seborrheic keratosis] Onset: 05-02-2011 05-02-2011 Episodic Unclassified (1 source) Epidural hemorrhage with loss of consciousness status unknown, initial encounter; Translations: [Epidural hemorrhage with loss of consciousness status unknown, initial encounter] Onset: 02-27-2022 Results Test Name Value Interpretation Reference Range Facility Absolute lymphocyte countOrd ered By: Corky Mensah on 12-09-2024 Lymphocytes Auto (Unsp spec) [#/Vol] 2.97 10*3/uL 0.83-4.51 [facility] Absolute neutrophil countOrd ered By: Corky Mensah on 12-09-2024 Neutrophils (Bld) [#/Vol] 7.4 10*3/uL 2.0-7.7 [facility] Anion gap in Serum or Plasma Ordered By: Corky Mensah on 12-09-2024 Anion gap [Moles/Vol] 12 mmol/L 5-15 [facility] Automated lymphocyte count a s percentage of total leukocytesOrdered By: Corky Mensah on 12-09-2024 Lymphocytes/100 WBC Auto (Unsp spec) 26.1 % - [facility] BUN/creatinine ratioOrdered By: Corky Mensah on 12-09-2024 Urea nitrogen/Creatinine [Mass ratio] 18.1 mg/mg 10- [facility] Basophil percentageOrdered B y: Corky Mensah on 12-09-2024 Basophils/100 WBC (Bld) 0.4 % 0-1 [facility] Bilirubin Test strip Ql (U)O rdered By: Corky Mensah on 12-09-2024 Bilirubin Ql (U) Negative Negative [facility] Bilirubin, totalOrdered By: Corky Campbelljohnny on 12-09-2024 Bilirubin [Mass/Vol] 0.31 mg/dL 0.00-1.30 [facility] CBC W/Diff, Automatedon 11-21 Absolute Lymph 2.97 X10 3/uL Normal 0.83-4.51 [facility] Comment on above: Performed By: #### L 500.4050, L100.0100 #### [facility] [address] [place], [address] Absolute Neut 7.4 X10 3/uL Normal 2.0-7.7 [facility] Comment on above: Performed By: #### L 500.4050, L100.0100 #### [facility] [address] [place], [address] Basophils/100 WBC (Bld) 0.4 % Normal 0-1 [facility] Comment on above: Performed By: #### L 500.4050, L100.0100 #### [facility] [address] [place], [address] Eosinophils/100 WBC (Bld) 1.5 % Normal 0-5 [facility] Comment on above: Performed By: #### L 500.4050, L100.0100 #### [facility] [address] [place], [address] Erythrocyte distribution width (RBC) [Ratio] 12.7 % Normal 11.6-14.6 [facility] Comment on above: Performed By: #### L 500.4050, L100.0100 #### [facility] [address] [place], [address] Hematocrit (Bld) [Volume fraction] 39.4 % Normal 37-47 [facility] Comment on above: Performed By: #### L 500.4050, L100.0100 #### [facility] [address] [place], [address] Hemoglobin (Bld) [Mass/Vol] 13.1 g/dL Normal 12.0-15.0 [facility] Comment on above: Performed By: #### L 500.4050, L100.0100 #### [facility] [address] [place], [address] IG% 0.400 Normal 0.0-0.9 [facility] Comment on above: Result Comment: IG% - Immature Granulocytes (promyelocytes, myelocytes and metamyelocytes) > 1% indicates that a LEFT SHIFT is Present. Performed By: #### L 500.4050, L100.0100 #### [facility] [address] [place], [address] Lymphocytes/100 WBC (Bld) 26.1 % Normal 19-41 [facility] Comment on above: Performed By: #### L 500.4050, L100.0100 #### [facility] [address] [place], [address] MCH (RBC) [Entitic mass] 31.1 pg Normal 27.0-32.0 [facility] Comment on above: Performed By: #### L 500.4050, L100.0100 #### [facility] [address] [place], [address] MCHC (RBC) [Mass/Vol] 33.2 g/dL Normal 32-36 [facility] Comment on above: Performed By: #### L 500.4050, L100.0100 #### [facility] [address] [place], [address] MCV (RBC) [Entitic vol] 93.6 fL Normal 81-99 [facility] Comment on above: Performed By: #### L 500.4050, L100.0100 #### [facility] [address] [place], [address] Monocytes/100 WBC (Bld) 6.4 % Normal 0-10 [facility] Comment on above: Performed By: #### L 500.4050, L100.0100 #### [facility] [address] [place], [address] Neutrophils/100 WBC (Bld) 65.2 % Normal 47-70 [facility] Comment on above: Performed By: #### L 500.4050, L100.0100 #### [facility] [address] [place], [address] Nucleated RBC (Bld) [#/Vol] 0 10*3/uL Normal 0-5 [facility] Comment on above: Performed By: #### L 500.4050, L100.0100 #### [facility] [address] [place], [id number] Platelet mean volume (Bld) [Entitic vol] 11.0 fL Normal 6.2-12.0 [facility] Comment on above: Performed By: #### L 500.4050, L100.0100 #### [facility] [address] [place], [address] Platelets (Bld) [#/Vol] 264 10*3/uL Normal 150-450 [facility] Comment on above: Performed By: #### L 500.4050, L100.0100 #### [facility] [address] [place], [address] RBC (Bld) [#/Vol] 4.21 10*6/uL Normal 4.2-5.4 [facility] Comment on above: Performed By: #### L 500.4050, L100.0100 #### [facility] [address] [place], [address] RDW SD 43.8 fl Normal 35.1-43.9 [facility] Comment on above: Performed By: #### L 500.4050, L100.0100 #### [facility] [address] [place], [id number] WBC (Bld) [#/Vol] 11.4 10*3/uL High 4.4-11.0 [facility] Comment on above: Performed By: #### L 500.4050, L100.0100 #### [facility] [address] [place], [address] Carbon dioxide, total [Moles /volume] in Central venous bloodOrdered By: Corky Mensah on 12-09-2024 CO2 [Moles/Vol] 23.6 mmol/L 21.0-32.0 [facility] Chloride assayOrdered By: Verenice Mensah on 12-09-2024 Chloride [Moles/Vol] 100 mmol/L 98-108 [facility] Comprehensive Metabolic Prof ilon 12-09-2024 Albumin [Mass/Vol] 4.3 g/dL Normal 3.4-4.8 [facility] Comment on above: Performed By: #### L 500.4050, L100.0100 #### [facility] [address] [place], [address] Albumin/Globulin [Mass ratio] 1.4 {ratio} Normal 0.9-2.4 [facility] Comment on above: Performed By: #### L 500.4050, L100.0100 #### [facility] [address] [place], [address] ALK PHOS 44 U/L Normal 35-104 [facility] Comment on above: Performed By: #### L 500.4050, L100.0100 #### [facility] [address] [place], [address] ALT [Catalytic activity/Vol] 19 U/L Normal <=34 [facility] Comment on above: Performed By: #### L 500.4050, L100.0100 #### [facility] [address] [place], [address] AST [Catalytic activity/Vol] 22 U/L Normal <=31 [facility] Comment on above: Performed By: #### L 500.4050, L100.0100 #### [facility] [address] [place], [address] Bilirubin [Mass/Vol] 0.31 mg/dL Normal 0.00-1.30 [facility] Comment on above: Performed By: #### L 500.4050, L100.0100 #### [facility] [address] [place], [address] BUN/CRE 18.1 RATIO Normal 10-20 [facility] Comment on above: Performed By: #### L 500.4050, L100.0100 #### [facility] [address] [place], [address] Calcium [Mass/Vol] 9.5 mg/dL Normal 7.6-11.0 [facility] Comment on above: Performed By: #### L 500.4050, L100.0100 #### [facility] [address] [place], [address] Chloride [Moles/Vol] 100 mmol/L Normal 98-108 [facility] Comment on above: Performed By: #### L 500.4050, L100.0100 #### [facility] [address] [place], [address] CO2 [Moles/Vol] 23.6 mmol/L Normal 21.0-32.0 [facility] Comment on above: Performed By: #### L 500.4050, L100.0100 #### [facility] [address] [place], [address] Creatinine [Mass/Vol] 0.64 mg/dL Low 0.70-1.20 [facility] Comment on above: Performed By: #### L 500.4050, L100.0100 #### [facility] [address] [place], [address] GAP 12 Normal 5-15 [facility] Comment on above: Performed By: #### L 500.4050, L100.0100 #### [facility] [address] [place], [address] GFR/1.73 sq M.predicted among non-blacks MDRD (S/P/Bld) [Vol rate/Area] 89 mL/min/{1.73_m2} Normal >60 [facility] Comment on above: Result Comment: mL/m in/1.73m2 CKD-EPI Creatinine Equation (2020) Performed By: #### L 500.4050, L100.0100 #### [facility] [address] [place], [address] Globulin (S) [Mass/Vol] 3.1 g/dL Normal 2.2-4.2 [facility] Comment on above: Performed By: #### L 500.4050, L100.0100 #### [facility] [address] [place], [address] Glucose [Mass/Vol] 90 mg/dL Normal 70-99 [facility] Comment on above: Performed By: #### L 500.4050, L100.0100 #### [facility] [address] [place], [address] Potassium [Moles/Vol] 4.2 mmol/L Normal 3.3-5.1 [facility] Comment on above: Performed By: #### L 500.4050, L100.0100 #### [facility] [address] [place], [address] Sodium [Moles/Vol] 135 mmol/L Normal 133-145 [facility] Comment on above: Performed By: #### L 500.4050, L100.0100 #### [facility] [address] [place], [address] T PROT 7.3 g/dL Normal 5.9-8.4 [facility] Comment on above: Performed By: #### L 500.4050, L100.0100 #### [facility] [address] [place], [address] Urea nitrogen [Mass/Vol] 12 mg/dL Normal - [facility] Comment on above: Performed By: #### L 500.4050, L100.0100 #### [facility] [address] [place], [address] Eosinophil percentageOrdered By: Corky Mensah on 12-09-2024 Eosinophils/100 WBC (Bld) 1.5 % 0-5 [facility] Erythrocyte distribution wid th ratioOrdered By: Corky Mensah on 12-09-2024 Erythrocyte distribution width (RBC) [Ratio] 12.7 % 11.6-14.6 [facility] Erythrocyte distribution wid th standard deviationOrdered By: bethanywrayhumera Mensah on 12-09-2024 Erythrocyte distribution width (RBC) [Ratio] 43.8 fl 35.1-43.9 [facility] Glomerular filtration rate ( GFR) estimation/1.73 sq m using serum, plasma, or whole bOrdered By: Corky Mensah on 12-09-2024 GFR/1.73 sq M.predicted among non-blacks MDRD (S/P/Bld) [Vol rate/Area] 89 mL/min/{1.73_m2} >60 [facility] Comment on above: mL/min/1.73m2 CKD-EP I Creatinine Equation (2020) Hematocrit Auto (Bld) [Volum e fraction]Ordered By: Corky Mensah on 12-09-2024 Hematocrit (Bld) [Volume fraction] 39.4 % 37-47 [facility] Hemoglobin measurementOrdere d By: Corky Mensah on 12-09-2024 Hemoglobin (Bld) [Mass/Vol] 13.1 g/dL 12.0-15.0 [facility] Immature granulocytes/100 WB C Auto (Bld)Ordered By: Corky Mensah on 12-09-2024 Immature granulocytes/100 WBC (Bld) 0.400 % 0.0-0.9 [facility] Comment on above: IG% - Immature Granu locytes (promyelocytes, myelocytes and metamyelocytes) > 1% indicates that a LEFT SHIFT is Present. Internal Medicine Office Vis iton 12-09-2024 Internal Medicine Office Visit [facility] [address] [place] [address] [place] [address] OFFICE VISIT Date of Service: 12/09/24 MR#: [id number] Acct: [id number] Name: CARL LOUIS Rep #: [id number] : 1945 Provider: Dr. Corky cruz MD Age/Sex: 79/F Location: [facility] Status: Signed Intake Vital Signs 06/08/24 13:56 12/09/24 12:59 Height 4 ft 10 in 4 ft 10 in Weight: 144 lb BMI 30.1 BP 142/84 H Blood Pressure Location Lt brachial Position Sitting Respiration 18 Pulse 91 Pulse Source Monitor Temp 97.8 F Temp Source Temporal Pulse Oximetry (%) 95 Oxygen Delivery Method room air Intake Visit Reasons: 6 m fu Chief Complaint: 6 M FU Is patient in pain?: No Allergies castor oil Allergy (Verified 12/09/24 12:59) Unknown frovatriptan succinate (From Frova) Allergy (Verified 12/09/24 12:59) Rash Iodinated Contrast Media Allergy (Verified 12/09/24 12:59) Vomiting sumatriptan (From Imitrex) Allergy (Verified 12/09/24 12:59) Rash sumatriptan succinate (From Imitrex) Allergy (Verified 12/09/24 12:59) Rash vitamin E (d-alpha tocopherol) Allergy (Verified 12/09/24 12:59) Chest tightness ezetimibe (From Zetia) Adverse Reaction (Severe, Verified 12/09/24 12:59) Severe GI upset/stomach pain guaifenesin (From Mucinex) Adverse Reaction (Intermediate, Verified 12/09/24 12:59) Other levofloxacin (From Levaquin) Adverse Reaction (Intermediate, Verified 12/09/24 12:59) pain fluticasone (From Flonase) Adverse Reaction (Verified 12/09/24 12:59) Nausea Medications ???Medication ???Instructions ???Recorded ???Confirmed ???Type vitamin E (dl, acetate) 180 mg 400 units PO DAILY Supplement 09/2112/09/24 History (400 unit) capsule vitamin B complex 1 tab PO DAILY supplement 10/05/18 12/09/24 History cholecalciferol (vitamin D3) 10 5,000 unit PO DAILY Supplement 12/09/24 History mcg (400 unit) capsule ferrous sulfate-vitamin C 39 mg-75 1 tab PO DAILY 09/05/22 12/09/24 History mg tablet hydrocodone-acetaminophen 5-325mg 1 tab PO BID PRN pain 09/05/22 History 5mg-325mg ketoconazole 2 % shampoo 1 applic topical 2XW #120 mL 03/0612/09/24 Rx pregabalin 50 mg capsule (Lyrica) 50 mg PO Q8H Burning in left leg 03/20/23 12/09/24 History calcium carbonate (Calcium 600) 600 mg PO DAILY SUPPLEMENT 4 12/09/24 History pantoprazole 40 mg tablet,delayed 40 mg PO QDAY #90 tabs 01/29/24 0 12/09/24 Rx release zoledronic acid 5 mg/100 mL in 1 ea IV .Yearly #100 mL 04/04/24 0 12/09/24 Rx mannitol 5 %-water intravenous piggybck (Reclast) Handicap Placard #1 ea 06/01/24 12/09/24 Rx apixaban 5 mg tablet (Eliquis) 5 mg PO BID #180 tabs 09/29/24 Rx mirtazapine 7.5 mg tablet 7.5 mg PO QHS Sleep #90 tabs 10/1912/09/24 Rx albuterol sulfate 90 mcg/actuation 2 puff inhalation Q6H PRN 12/09/24 Rx aerosol inhaler (Ventolin HFA) shortness of breath or wheezing #8.5 grams Have you fallen in the past year?: Yes (x1 hip fracture) Nurse's Note: pt reports that last week she noted blood in the urine,had c/o burning and urgency reports that she increased fluids and her symptoms seem to have resolved pt reports that she had right hip surgery post fall in [place], pt requesting ortho referral [facility] Medical History (Updated 12/09/24 @ 16:[address] Corky Mensah MD) Hematuria History of hip fracture Dermatitis Hypertension Nocturnal hypoxemia Diplopia Headache Acute hypoxemic respiratory failure Leukocytosis Generalized weakness Fever of unknown origin Leukocytosis Generalized weakness Hypoxia Fever Debility COVID-19 URI (upper respiratory infection) Flu vaccine need Seborrheic dermatitis GERD (gastroesophageal reflux disease) Left hip pain Health care maintenance Migraine Chronic bronchitis Bone fracture History of back problems Anemia Seasonal allergies Wears dentures Wears hearing aid Wears glasses Post-menopausal Anxiety Arthritis Bladder disease Pulmonary embolism High cholesterol Easy bruising Excessive bleeding History of hiatal hernia Gastric reflux Former smoker History of stress test History of irregular heartbeat Fibromyalgia Nodular goiter History of DVT (deep vein thrombosis) Cardiac murmur Factor 5 Leiden mutation, heterozygous HLD (hyperlipidemia) DM2 (diabetes mellitus, type 2) Depression Surgical History Hx of kyphoplasty H/O: hysterectomy Hx of appendectomy Family History Father CAD (coronary artery disease) Myocardial infarction Bleeding disorder History of blood clots CVA (cerebral vascular accident) Mother Colon cancer (more content not included)... Normal [facility] Ketones Test strip Ql (U)Ord ered By: Corky Mensah on 12-09-2024 Ketones Ql (U) Negative Negative [facility] - Chemistry and C hemistry - challengeOrdered By: Corky Mensah on 12-09-2024 AST [Catalytic activity/Vol] 22 U/L <32 [facility] - Hematology and Cell countsOrdered By: Corky Mensah on 12-09-2024 HbA1c (Bld) [Mass fraction] 5.8 % 4.2-6.3 [facility] MCV (mean corpuscular volume ) determinationOrdered By: Corky Mensah on 12-09-2024 MCV (RBC) [Entitic vol] 93.6 fL 81-99 [facility] Mean corpuscular hemoglobin (MCH) determinationOrdered By: Corky Mensah on 12-09-2024 MCH (RBC) [Entitic mass] 31.1 pg 27.0-32.0 [facility] Mean corpuscular hemoglobin concentration (MCHC) determinationOrdered By: Corky Mensah on 12-09-2024 MCHC (RBC) [Mass/Vol] 33.2 g/dL 32-36 [facility] Mean platelet volume determi nationOrdered By: Corky Mensah on 12-09-2024 Platelet mean volume (Bld) [Entitic vol] 11.0 fL 6.2-12.0 [facility] Microscopic analysis of urin e for red blood cells (RBC)Ordered By: Corky Mensah on 12-09-2024 Microscopic analysis of urine for red blood cells (RBC) 0 SEEN /hpf 0-5 [facility] Monocyte percentageOrdered B y: Corky Mensah on 12-09-2024 Monocytes/100 WBC (Bld) 6.4 % 0-10 [facility] Mucus LM Ql (Urine sed)Order ed By: Corky Mensah on 12-09-2024 Mucus Ql (Urine sed) 0 SEEN /hpf [facility] Neutrophil percentageOrdered By: Corky Mensah on 12-09-2024 Neutrophils/100 WBC (Bld) 65.2 % 47-70 [facility] Nitrite Test strip Ql (U)Ord ered By: Corky Mensah on 12-09-2024 Nitrite Ql (U) Negative Negative [facility] Nucleated red blood cell per centageOrdered By: Corky Mensah on 12-09-2024 Nucleated RBC/100 WBC (Bld) [Ratio] 0 % 0-5 [facility] Platelet countOrdered By: Verenice Mensah on 12-09-2024 Platelets (Bld) [#/Vol] 264 10*3/uL 150-450 [facility] Potassium measurement (mass/ volume)Ordered By: Corky Mensah on 12-09-2024 Potassium (Unsp spec) [Mass/Vol] 4.2 mmol/L 3.3-5.1 [facility] Protein Test strip Ql (U)Ord ered By: Corky Mensah on 12-09-2024 Protein Ql (U) Negative Negative [facility] RBC Auto (Bld) [#/Vol]Ordere d By: Corky Mensah on 12-09-2024 RBC (Bld) [#/Vol] 4.21 10*6/uL 4.2-5.4 [facility] Serum creatinine measurement (mass/volume)Ordered By: Corky Mensah on 12-09-2024 Creatinine [Mass/Vol] 0.64 mg/dL Low 0.70-1.20 [facility] Serum globulin measurementOr dered By: Corky Mensah on 12-09-2024 Globulin (S) [Mass/Vol] 3.1 g/dL 2.2-4.2 [facility] Serum glucose measurement (m ass/volume)Ordered By: Corky Mensah on 12-09-2024 Glucose [Mass/Vol] 90 mg/dL 70-99 [facility] Serum or plasma alanine kang otransferase (ALT) measurementOrdered By: Corky Mensah on 12-09-2024 ALT [Catalytic activity/Vol] 19 U/L <35 [facility] Serum or plasma albumin aleshia urement (mass/volume)Ordered By: Corky Mensah on 12-09-2024 Albumin [Mass/Vol] 4.3 g/dL 3.4-4.8 [facility] Serum or plasma albumin/glob ulin mass ratioOrdered By: Corky Mensah on 12-09-2024 Albumin/Globulin [Mass ratio] 1.4 {ratio} 0.9-2.4 [facility] Serum or plasma alkaline urmila sphatase measurementOrdered By: Corky Mensah on 12-09-2024 ALP [Catalytic activity/Vol] 44 U/L 35-104 [facility] Serum or plasma calcium aleshia urement (mass/volume)Ordered By: Corky Mensah on 12-09-2024 Calcium [Mass/Vol] 9.5 mg/dL 7.6-11.0 [facility] Serum or plasma urea nitroge n measurement (mass/volume)Ordered By: Corky Mensah on 12-09-2024 Urea nitrogen [Mass/Vol] 12 mg/dL 4-19 [facility] Sodium levelOrdered By: Meagan Mensah on 12-09-2024 Sodium [Moles/Vol] 135 mmol/L 133-145 [facility] Squamous epithelial cells de tection in urine sediment by light microscopyOrdered By: Corky Mensah on 12-09-2024 Epithelial cells.squamous LM Ql (Urine sed) 10-25 SEEN /hpf 5-10 [facility] Total proteinOrdered By: Giuliano Mensah on 12-09-2024 Protein [Mass/Vol] 7.3 g/dL 5.9-8.4 [facility] Transitional cells detection in urine sediment by light microscopyOrdered By: Corky Mensah on 12-09-2024 Transitional cells LM Ql (Urine sed) 0-5 SEEN /hpf 0-5 [facility] Urinalysis, Completeon 12-09 EPI,TRANSITION 0-5 SEEN Normal 0-5 [facility] Comment on above: Order Comment: JUDIE CTOR TO SPECIFY Performed By: #### L 500.4050, L100.0100 #### [facility] [address] [place], [address] EPI,SQUAMOUS 10-25 SEEN Normal 5-10 [facility] Comment on above: Order Comment: JUDIE CTOR TO SPECIFY Performed By: #### L 500.4050, L100.0100 #### [facility] [address] [place], [address] BACTERIA RARE Normal None Seen [facility] Comment on above: Order Comment: JUDIE CTOR TO SPECIFY Performed By: #### L 500.4050, L100.0100 #### [facility] [address] [place], [address] Mucus Ql (Urine sed) 0 SEEN Normal [facility] Comment on above: Order Comment: JUDIE CTOR TO SPECIFY Performed By: #### L 500.4050, L100.0100 #### [facility] [address] [place], [address] RBC 0 SEEN Normal 0-5 [facility] Comment on above: Order Comment: JUDIE CTOR TO SPECIFY Performed By: #### L 500.4050, L100.0100 #### [facility] [address] [place], [address] WBC 0 SEEN Normal 0-5 [facility] Comment on above: Order Comment: JUDIE CTOR TO SPECIFY Performed By: #### L 500.4050, L100.0100 #### [facility] [address] [place], [address] Urine clarityOrdered By: Giuliano Mensah on 12-09-2024 Clarity (U) Clear Clear [facility] Urine color determinationOrd ered By: Corky Mensah on 12-09-2024 Color (U) Straw Yellow [facility] Urine glucose detectionOrder ed By: Corky Mensah on 12-09-2024 Glucose Ql (U) Normal mg/dl Normal [facility] Urine leukocyte esterase det ection by dipstickOrdered By: Corky Mensah on 12-09-2024 Leukocyte esterase Test strip Ql (U) Negative Negative [facility] Urine pHOrdered By: Kaylyn Mensah on 12-09-2024 pH (U) 7.0 [pH] 5.0 - 8.0 [facility] Urine sediment bacteria coun t by microscopy (number/high power field)Ordered By: Corky Mensah on 12-09-2024 Bacteria LM.HPF (Urine sed) [#/Area] RARE /hpf None Seen [facility] Urine specific gravity measu rementOrdered By: Corky Mensah on 12-09-2024 Specific gravity (U) [Rel density] 1.005 1.002-1.030 [facility] Urine urobilinogen measureme ntOrdered By: Corky Mensah on 12-09-2024 Urobilinogen Ql (U) Normal mg/dl Normal [facility] White blood cell (WBC) count Ordered By: Corky Mensah on 12-09-2024 WBC (Bld) [#/Vol] 11.4 10*3/uL High 4.4-11.0 [facility] White blood cell countOrdere d By: Corky Mensah on 12-09-2024 White blood cell count 0 SEEN /hpf 0-5 [facility] Absolute neutrophil countOrd ered By: bethanywrayhumera Mensah on 06-08-2024 Neutrophils (Bld) [#/Vol] 5.5 10*3/uL 2.0-7.7 [facility] Anion gap in Serum or Plasma Ordered By: Corky Mensah on 06-08-2024 Anion gap [Moles/Vol] 11 mmol/L 5-15 [facility] BUN/creatinine ratioOrdered By: berna Mensah on 06-08-2024 Urea nitrogen/Creatinine [Mass ratio] 16.1 mg/mg 10-20 [facility] Basophil percentageOrdered B y: Corky Mensah on 06-08-2024 Basophils/100 WBC (Bld) 0.6 % 0-1 [facility] Bilirubin, totalOrdered By: berna Mensah on 06-08-2024 Bilirubin [Mass/Vol] 0.19 mg/dL 0.00-1.30 [facility] CBC W/Diff, Automatedon 05-21 Absolute Lymph 3.02 X10 3/uL Normal 0.83-4.51 [facility] Comment on above: Performed By: #### L 500.4050, L100.0100, L506.1001 #### [facility] [address] [place], [place], [address] Absolute Neut 5.5 X10 3/uL Normal 2.0-7.7 [facility] Comment on above: Performed By: #### L 500.4050, L100.0100, L506.1001 #### [facility] [address] [place], [address] Basophils/100 WBC (Bld) 0.6 % Normal 0-1 [facility] Comment on above: Performed By: #### L 500.4050, L100.0100, L506.1001 #### [facility] [address] [place], [address] Eosinophils/100 WBC (Bld) 2.1 % Normal 0-5 [facility] Comment on above: Performed By: #### L 500.4050, L100.0100, L506.1001 #### [facility] [address] [place], [address] Erythrocyte distribution width (RBC) [Ratio] 13.2 % Normal 11.6-14.6 [facility] Comment on above: Performed By: #### L 500.4050, L100.0100, L506.1001 #### [facility] [address] [place], [address] Hematocrit (Bld) [Volume fraction] 38.1 % Normal 37-47 [facility] Comment on above: Performed By: #### L 500.4050, L100.0100, L506.1001 #### [facility] [address] [place], [address] Hemoglobin (Bld) [Mass/Vol] 12.5 g/dL Normal 12.0-15.0 [facility] Comment on above: Performed By: #### L 500.4050, L100.0100, L506.1001 #### [facility] [address] [place], [address] IG% 0.500 Normal 0.0-0.9 [facility] Comment on above: Result Comment: IG% - Immature Granulocytes (promyelocytes, myelocytes and metamyelocytes) > 1% indicates that a LEFT SHIFT is Present. Performed By: #### L 500.4050, L100.0100, L506.1001 #### [facility] [address] [place], [address] Lymphocytes/100 WBC (Bld) 31.2 % Normal 19-41 [facility] Comment on above: Performed By: #### L 500.4050, L100.0100, L506.1001 #### [facility] [address] [place], [address] MCH (RBC) [Entitic mass] 32.1 pg High 27.0-32.0 [facility] Comment on above: Performed By: #### L 500.4050, L100.0100, L506.1001 #### [facility] [address] [place], [address] MCHC (RBC) [Mass/Vol] 32.8 g/dL Normal 32-36 [facility] Comment on above: Performed By: #### L 500.4050, L100.0100, L506.1001 #### [facility] [address] [place], [address] MCV (RBC) [Entitic vol] 97.7 fL Normal 81-99 [facility] Comment on above: Performed By: #### L 500.4050, L100.0100, L506.1001 #### [facility] [address] [place], [address] Monocytes/100 WBC (Bld) 8.6 % Normal 0-10 [facility] Comment on above: Performed By: #### L 500.4050, L100.0100, L506.1001 #### [facility] [address] [place], [address] Neutrophils/100 WBC (Bld) 57.0 % Normal 47-70 [facility] Comment on above: Performed By: #### L 500.4050, L100.0100, L506.1001 #### [facility] [address] [place], [address] Nucleated RBC (Bld) [#/Vol] 0 10*3/uL Normal 0-5 [facility] Comment on above: Performed By: #### L 500.4050, L100.0100, L506.1001 #### [facility] [address] [place], [address] Platelet mean volume (Bld) [Entitic vol] 11.2 fL Normal 6.2-12.0 [facility] Comment on above: Performed By: #### L 500.4050, L100.0100, L506.1001 #### [facility] [address] [place], [address] Platelets (Bld) [#/Vol] 275 10*3/uL Normal 150-450 [facility] Comment on above: Performed By: #### L 500.4050, L100.0100, L506.1001 #### [facility] [address] [place], [address] RBC (Bld) [#/Vol] 3.90 10*6/uL Low 4.2-5.4 [facility] Comment on above: Performed By: #### L 500.4050, L100.0100, L506.1001 #### [facility] [address] [place], [address] RDW SD 47.0 fl High 35.1-43.9 [facility] Comment on above: Performed By: #### L 500.4050, L100.0100, L506.1001 #### [facility] [address] [place], [address] WBC (Bld) [#/Vol] 9.7 10*3/uL Normal 4.4-11.0 [facility] Comment on above: Performed By: #### L 500.4050, L100.0100, L506.1001 #### [facility] [address] [place], [address] Carbon dioxide, total [Moles /volume] in Central venous bloodOrdered By: Corky Mensah on 06-08-2024 CO2 [Moles/Vol] 25.6 mmol/L 21.0-32.0 [facility] Chloride assayOrdered By: Verenice Mensah on 06-08-2024 Chloride [Moles/Vol] 98 mmol/L 98-108 [facility] Comprehensive Metabolic Prof ilon 06-08-2024 Albumin [Mass/Vol] 4.2 g/dL Normal 3.4-4.8 [facility] Comment on above: Performed By: #### L 500.4050, L100.0100, L506.1001 #### [facility] [address] [place], [address] Albumin/Globulin [Mass ratio] 1.4 {ratio} Normal 0.9-2.4 [facility] Comment on above: Performed By: #### L 500.4050, L100.0100, L506.1001 #### [facility] [address] [place], [address] ALK PHOS 46 U/L Normal 35-104 [facility] Comment on above: Performed By: #### L 500.4050, L100.0100, L506.1001 #### [facility] [address] [place], [address] ALT [Catalytic activity/Vol] 22 U/L Normal <=34 [facility] Comment on above: Performed By: #### L 500.4050, L100.0100, L506.1001 #### [facility] [address] [place], [address] AST [Catalytic activity/Vol] 21 U/L Normal <=31 [facility] Comment on above: Performed By: #### L 500.4050, L100.0100, L506.1001 #### [facility] [address] [place], [address] Bilirubin [Mass/Vol] 0.19 mg/dL Normal 0.00-1.30 [facility] Comment on above: Performed By: #### L 500.4050, L100.0100, L506.1001 #### [facility] [address] [place], [address] BUN/CRE 16.1 RATIO Normal 10-20 [facility] Comment on above: Performed By: #### L 500.4050, L100.0100, L506.1001 #### [facility] [address] [place], [address] Calcium [Mass/Vol] 9.0 mg/dL Normal 7.6-11.0 [facility] Comment on above: Performed By: #### L 500.4050, L100.0100, L506.1001 #### [facility] [address] [place], [address] Chloride [Moles/Vol] 98 mmol/L Normal 98-108 [facility] Comment on above: Performed By: #### L 500.4050, L100.0100, L506.1001 #### [facility] [address] [place], [address] CO2 [Moles/Vol] 25.6 mmol/L Normal 21.0-32.0 [facility] Comment on above: Performed By: #### L 500.4050, L100.0100, L506.1001 #### [facility] [address] [place], [address] Creatinine [Mass/Vol] 0.67 mg/dL Low 0.70-1.20 [facility] Comment on above: Performed By: #### L 500.4050, L100.0100, L506.1001 #### [facility] [address] [place], [address] GAP 11 Normal 5-15 [facility] Comment on above: Performed By: #### L 500.4050, L100.0100, L506.1001 #### [facility] [address] [place], [address] GFR/1.73 sq M.predicted among non-blacks MDRD (S/P/Bld) [Vol rate/Area] 89 mL/min/{1.73_m2} Normal >60 [facility] Comment on above: Result Comment: mL/m in/1.73m2 CKD-EPI Creatinine Equation (2020) Performed By: #### L 500.4050, L100.0100, L506.1001 #### [facility] [address] [place], [address] Globulin (S) [Mass/Vol] 2.9 g/dL Normal 2.2-4.2 [facility] Comment on above: Performed By: #### L 500.4050, L100.0100, L506.1001 #### [facility] [address] [place], [address] Glucose [Mass/Vol] 119 mg/dL High 70-99 [facility] Comment on above: Performed By: #### L 500.4050, L100.0100, L506.1001 #### [facility] [address] [place], [address] Potassium [Moles/Vol] 4.4 mmol/L Normal 3.3-5.1 [facility] Comment on above: Performed By: #### L 500.4050, L100.0100, L506.1001 #### [facility] [address] [place], [address] Sodium [Moles/Vol] 135 mmol/L Normal 133-145 [facility] Comment on above: Performed By: #### L 500.4050, L100.0100, L506.1001 #### [facility] [address] [place], [address] T PROT 7.1 g/dL Normal 5.9-8.4 [facility] Comment on above: Performed By: #### L 500.4050, L100.0100, L506.1001 #### [facility] [address] [place], [address] Urea nitrogen [Mass/Vol] 11 mg/dL Normal 4-19 [facility] Comment on above: Performed By: #### L 500.4050, L100.0100, L506.1001 #### [facility] [address] [place], [address] Eosinophil percentageOrdered By: Corky Mensah on 06-08-2024 Eosinophils/100 WBC (Bld) 2.1 % 0-5 [facility] Erythrocyte distribution wid th ratioOrdered By: Corky Mensah on 06-08-2024 Erythrocyte distribution width (RBC) [Ratio] 13.2 % 11.6-14.6 [facility] Erythrocyte distribution wid th standard deviationOrdered By: Corky Mensah on 06-08-2024 Erythrocyte distribution width (RBC) [Entitic vol] 47.0 fL High 35.1-43.9 [facility] GFR/1.73 sq M.predicted colton g non-blacks MDRD (S/P/Bld) [Vol rate/Area]Ordered By: Corky Mensah on 06-08-2024 Estimated GFR (MDRD) Non-Af Amer 89 >60 [facility] Comment on above: mL/min/1.73m2 CKD-EP I Creatinine Equation (2020) Hematocrit Auto (Bld) [Volum e fraction]Ordered By: Corky Mensah on 06-08-2024 Hematocrit (Bld) [Volume fraction] 38.1 % 37-47 [facility] Hemoglobin measurementOrdere d By: Corky Mensah on 06-08-2024 Hemoglobin (Bld) [Mass/Vol] 12.5 g/dL 12.0-15.0 [facility] Immature granulocytes/100 WB C Auto (Bld)Ordered By: Corky Mensah on 06-08-2024 Immature granulocytes/100 WBC (Bld) 0.500 % 0.0-0.9 [facility] Comment on above: IG% - Immature Granu locytes (promyelocytes, myelocytes and metamyelocytes) > 1% indicates that a LEFT SHIFT is Present. Internal Medicine Office Vis iton 06-08-2024 Internal Medicine Office Visit [facility] [address] [place] [address] [place] [address] OFFICE VISIT Date of Service: 06/08/24 MR#: [id number] Acct: [id number] Name: CARL LOUIS Rep #: [id number] : 1945 Provider: Dr. Corky cruz MD Age/Sex: 78/F Location: [facility] Status: Signed Intake Vital Signs 12/09/23 13:34 06/08/24 13:56 Height 4 ft 10 in 4 ft 10 in Weight: 151 lb BMI 31.5 BP 130/80 H Blood Pressure Location Lt brachial Position Sitting Respiration 18 Pulse 71 Pulse Source Monitor Temp 97.4 F L Temp Source Temporal Pulse Oximetry (%) 95 Oxygen Delivery Method room air Intake Visit Reasons: 6 M FU Chief Complaint: 6 M FU Is patient in pain?: Yes (5 all over ) Allergies castor oil Allergy (Verified 06/08/24 13:55) Unknown frovatriptan succinate (From Frova) Allergy (Verified 06/08/24 13:55) Rash Iodinated Contrast Media Allergy (Verified 06/08/24 13:55) Vomiting sumatriptan (From Imitrex) Allergy (Verified 06/08/24 13:55) Rash sumatriptan succinate (From Imitrex) Allergy (Verified 06/08/24 13:55) Rash vitamin E (d-alpha tocopherol) Allergy (Verified 06/08/24 13:55) Chest tightness ezetimibe (From Zetia) Adverse Reaction (Severe, Verified 06/08/24 13:55) Severe GI upset/stomach pain guaifenesin (From Mucinex) Adverse Reaction (Intermediate, Verified 06/08/24 13:55) Other levofloxacin (From Levaquin) Adverse Reaction (Intermediate, Verified 06/08/24 13:55) pain fluticasone (From Flonase) Adverse Reaction (Verified 06/08/24 13:55) Nausea Medications ???Medication ???Instructions ???Recorded ???Confirmed ???Type vitamin E (dl, acetate) 180 mg 400 units PO DAILY Supplement 09/2106/08/24 History (400 unit) capsule vitamin B complex 1 tab PO DAILY supplement 10/05/18 06/08/24 History cholecalciferol (vitamin D3) 10 5,000 unit PO DAILY Supplement 06/08/24 History mcg (400 unit) capsule ferrous sulfate-vitamin C 39 mg-75 1 tab PO DAILY 09/05/22 06/08/24 History mg tablet hydrocodone-acetaminophen 5-325mg 1 tab PO BID PRN pain 09/05/22 History 5mg-325mg ketoconazole 2 % shampoo 1 applic topical 2XW #120 mL 03/0606/08/24 Rx pregabalin 50 mg capsule (Lyrica) 50 mg PO Q8H Burning in left leg 03/20/23 06/08/24 History albuterol sulfate 2 puff inhalation PRN shortness of 04/20/23 06/08/24 History breath or wheezing calcium carbonate (Calcium 600) 600 mg PO DAILY SUPPLEMENT 4 06/08/24 History mirtazapine 7.5 mg tablet 7.5 mg PO QHS Sleep #90 tabs 12/0906/08/24 Rx apixaban 5 mg tablet (Eliquis) 5 mg PO BID #180 tabs 01/29/24 Rx pantoprazole 40 mg tablet,delayed 40 mg PO QDAY #90 tabs 01/29/24 0 06/08/24 Rx release zoledronic acid 5 mg/100 mL in 1 ea IV .Yearly #100 mL 04/04/24 0 06/08/24 Rx mannitol 5 %-water intravenous piggybck (Reclast) Handicap Placard #1 ea 06/01/24 06/08/24 Rx Have you fallen in the past year?: No Nurse's Note: pt reports that she has right lateral ABD discomfort for the past couple months [facility] Medical History (Updated 06/08/24 @ 17:[address] Corky Mensah MD) Dermatitis Hypertension Nocturnal hypoxemia Diplopia Headache Acute hypoxemic respiratory failure Leukocytosis Generalized weakness Fever of unknown origin Leukocytosis Generalized weakness Hypoxia Fever Debility COVID-19 URI (upper respiratory infection) Flu vaccine need Seborrheic dermatitis GERD (gastroesophageal reflux disease) Left hip pain Health care maintenance Migraine Chronic bronchitis Bone fracture History of back problems Anemia Seasonal allergies Wears dentures Wears hearing aid Wears glasses Post-menopausal Anxiety Arthritis Bladder disease Pulmonary embolism High cholesterol Easy bruising Excessive bleeding History of hiatal hernia Gastric reflux Former smoker History of stress test History of irregular heartbeat Fibromyalgia Nodular goiter History of DVT (deep vein thrombosis) Cardiac murmur Factor 5 Leiden mutation, heterozygous HLD (hyperlipidemia) DM2 (diabetes mellitus, type 2) Depression Surgical History Hx of kyphoplasty H/O: hysterectomy Hx of appendectomy Family History Father CAD (coronary artery disease) Myocardial infarction Bleeding disorder History of blood clots CVA (cerebral vascular accident) Mother Colon cancer Diabetes High cholesterol Cancer Skin Sister Psychiatric care High cholesterol Diabetes Colon cancer Brother Colon cancer High cholesterol Social History household members: none housing: house (more content not included)... Normal [facility] [id number] 06-08-2024 Vitamin D 25-OH 42.4 ng/mL Normal 30-100 [facility] Comment on above: Result Comment: Catie min D Status Deficiency: <20 ng/mL (50nmol/L) Insufficiency: 20-30 ng/mL (50-75 nmol/L) Sufficiency: 30-100 ng/mL (75-250 nmol/L) Toxicity: >100 ng/mL (>250 nmol/L) Performed By: #### L 500.4050, L100.0100 #### [facility] [address] [place], [address] Laboratory - Chemistry and C hemistry - challengeOrdered By: Corky Mensah on 06-08-2024 AST [Catalytic activity/Vol] 21 U/L <32 [facility] Laboratory - Hematology and Cell countsOrdered By: Corky Mensah on 06-08-2024 HbA1c (Bld) [Mass fraction] 6.2 % 4.2-6.3 [facility] Lymphocytes Auto (Unsp spec) [#/Vol]Ordered By: bethanywrayhumera Mensah on 06-08-2024 Lymphocytes (Bld) [#/Vol] 3.02 10*3/uL 0.83-4.51 [facility] Lymphocytes/100 WBC Auto (Un sp spec)Ordered By: Corky Mensah on 06-08-2024 Lymphocytes/100 WBC (Bld) 31.2 % 19-41 [facility] MCV (mean corpuscular volume ) determinationOrdered By: Corky Mensah on 06-08-2024 MCV (RBC) [Entitic vol] 97.7 fL 81-99 [facility] Mean corpuscular hemoglobin (MCH) determinationOrdered By: Corky Mensah on 06-08-2024 MCH (RBC) [Entitic mass] 32.1 pg High 27.0-32.0 [facility] Mean corpuscular hemoglobin concentration (MCHC) determinationOrdered By: Corky Mensah on 06-08-2024 MCHC (RBC) [Mass/Vol] 32.8 g/dL 32-36 [facility] Mean platelet volume determi nationOrdered By: bethanywrayhumera Mensah on 06-08-2024 Platelet mean volume (Bld) [Entitic vol] 11.2 fL 6.2-12.0 [facility] Monocyte percentageOrdered B y: Corky Mensah on 06-08-2024 Monocytes/100 WBC (Bld) 8.6 % 0-10 [facility] Neutrophil percentageOrdered By: Corky Mensah on 06-08-2024 Neutrophils/100 WBC (Bld) 57.0 % 47-70 [facility] Nucleated red blood cell per centageOrdered By: Corky Mensah on 06-08-2024 Nucleated RBC/100 WBC (Bld) [Ratio] 0 % 0-5 [facility] Platelet countOrdered By: Verenice Mensah on 06-08-2024 Platelets (Bld) [#/Vol] 275 10*3/uL 150-450 [facility] Potassium (Unsp spec) [Mass/ Vol]Ordered By: Corky Mensah on 06-08-2024 Potassium [Moles/Vol] 4.4 mmol/L 3.3-5.1 [facility] RBC Auto (Bld) [#/Vol]Ordere d By: Corky Mensah on 06-08-2024 RBC (Bld) [#/Vol] 3.90 10*6/uL Low 4.2-5.4 [facility] Serum creatinine measurement (mass/volume)Ordered By: Corky Mensah on 06-08-2024 Creatinine [Mass/Vol] 0.67 mg/dL Low 0.70-1.20 [facility] Serum globulin measurementOr dered By: Corky Mensah on 06-08-2024 Globulin (S) [Mass/Vol] 2.9 g/dL 2.2-4.2 [facility] Serum glucose measurement (m ass/volume)Ordered By: Corky Mensah on 06-08-2024 Glucose [Mass/Vol] 119 mg/dL High 70-99 [facility] Serum or plasma alanine kang otransferase (ALT) measurementOrdered By: Corky Mensah on 06-08-2024 ALT [Catalytic activity/Vol] 22 U/L <35 [facility] Serum or plasma albumin aleshia urement (mass/volume)Ordered By: Corky Mensah on 06-08-2024 Albumin [Mass/Vol] 4.2 g/dL 3.4-4.8 [facility] Serum or plasma albumin/glob ulin mass ratioOrdered By: Corky Mensah on 06-08-2024 Albumin/Globulin [Mass ratio] 1.4 {ratio} 0.9-2.4 [facility] Serum or plasma alkaline urmila sphatase measurementOrdered By: Corky Mensah on 06-08-2024 ALP [Catalytic activity/Vol] 46 U/L 35-104 [facility] Serum or plasma calcium aleshia urement (mass/volume)Ordered By: Corky Mensah on 06-08-2024 Calcium [Mass/Vol] 9.0 mg/dL 7.6-11.0 [facility] Serum or plasma urea nitroge n measurement (mass/volume)Ordered By: Corky Mensah on 06-08-2024 Urea nitrogen [Mass/Vol] 11 mg/dL 4-19 [facility] Sodium levelOrdered By: Meagan normankarol Makenna on 06-08-2024 Sodium [Moles/Vol] 135 mmol/L 133-145 [facility] Total proteinOrdered By: Giulianobenedicto fordhumera Mensah on 06-08-2024 Protein [Mass/Vol] 7.1 g/dL 5.9-8.4 [facility] Vitamin D, 25-hydroxyOrdered By: Corky Mensah on 06-08-2024 Vitamin D 25-Hydroxy 42.4 ng/mL 30-100 [facility] Comment on above: Vitamin D StatusDefi ciency: <20 ng/mL (50nmol/L)Insufficiency: 20-30 ng/mL (50-75 nmol/L)Sufficiency: 30-100 ng/mL (75-250 nmol/L)Toxicity: >100 ng/mL (>250 nmol/L) White blood cell (WBC) count Ordered By: Corky Mensah on 06-08-2024 WBC (Bld) [#/Vol] 9.7 10*3/uL 4.4-11.0 [facility] Miscellaneous Lab Procedureo n 02-01-2024 MISC LAB TEST Normal [facility] Comment on above: Order Comment: TERESA COOPER [id number] MED TOX Result Comment: [id number] 6+OXYCODONE-BUND (ng/mL) DRUG RESULT SCREEN CUTOFF ____ Amphetamines,Urine Negative ng/mL 1000 Amphetamine test includes Amphetamine and Methamphetamine. Barbiturates Negative ng/mL 200 Benzodiazepines Negative ng/mL 200 Cannabinoid Negative ng/mL 20 Cocaine (Metab) Negative ng/mL 300 Opiates Positive ng/mL 300 Opiates test includes Codeine, Morphine, Hydromorphone, Hydrocodone. Codeine Negative 300 Morphine Negative 300 Hydromorphone Negative 300 Hydrocodone Positive Hydrocodone Conf,MS,UR 443 ng/mL 300 Oxycodone/Oxymorphone,Urine Negative ng/mL 300 Test includes Oxycodone and Oxymorphone. TESTING PERFORMED AT [facility]. ORIGINAL REPORT ON FILE IN LAB CONTAINS ADDITIONAL TEST SITE INFORMATION. Performed By: #### L 801.1541, L505.5000 #### [facility] [address] [place], [address] DIAG MAMM W/CAD, UNILATon DIAG MAMM W/CAD, UNILAT [facility] Imaging Services [address] [place] [address] DIAG MAMM W/CAD, UNILAT MR#: [id number] Acct: [id number] Name: CARL LOUIS SANTOS Rep #: [id number] : 1945 F 78 From: Leonides velasquez MD PCP: Dr. Corky Mensah MD Status: [facility] Study: DIAG MAMM W/CAD, UNILAT Date of Exam: 01/28/24 Exam# [id number] Ordering Dr: Corky Mensah MD [id number] MAMMOGRAPHY - UNILATERAL DIAGNOSTIC: RIGHT BREAST REASON FOR EXAM: Female, 78 years old. Abnormal screening mammogram. PERTINENT HISTORY: Sister with breast cancer. TECHNIQUE: Compression magnification views of the right breast were obtained. CAD: Full Field Digital Mammography with Computer Added Detection was performed. COMPARISON: Comparison is made with prior study January 21, 2024. FINDINGS: Breast Composition: There are scattered areas of fibroglandular density. There are no dominant masses or suspicious calcifications. No other significant abnormalities are identified. BI/DIAG MAMM W/CAD, UNILAT IMPRESSION: Negative unilateral diagnostic mammogram. Yearly followup mammogram recommended. (A) ASSESSMENT CATEGORY: BIRADS Category 2: Benign. A letter regarding these results will be sent to the patient by the facility within 30 days. Approximately 10% of breast cancers are not detected by mammography. A normal mammogram should not delay biopsy of a clinically suspicious abnormality. Electronically Signed: Leonides Manriquez MD at 15:00 EST Reading Location ID and State: [address] [place] [address] , Service support , CC: Dr. Corky Mensah MD Junior [employer] Systems Administrator: Signed Normal [facility] Urine Drug Screen (VISTA)on 01-26-2024 AMPHETAMINES Negative Normal <1000 ng/mL [facility] Comment on above: Order Comment: URINE TOX Performed By: #### L 801.1541, L505.5000 #### [facility] [address] [place], [address] BARBITIURATES Negative Normal < 200 ng/mL [facility] Comment on above: Order Comment: URINE TOX Performed By: #### L 801.1541, L505.5000 #### [facility] [address] [place], [address] BENZODIAZIPINE Negative Normal < 200 ng/mL [facility] Comment on above: Order Comment: URINE TOX Performed By: #### L 801.1541, L505.5000 #### [facility] [address] [place], [address] COCAINE Negative Normal < 300 ng/mL [facility] Comment on above: Order Comment: URINE TOX Performed By: #### L 801.1541, L505.5000 #### [facility] [address] [place], [address] ECSTACY Negative Normal < 500 ng/mL [facility] Comment on above: Order Comment: URINE TOX Performed By: #### L 801.1541, L505.5000 #### [facility] [address] [place], [address] METHADONE Negative Normal < 300 ng/mL [facility] Comment on above: Order Comment: URINE TOX Performed By: #### L 801.1541, L505.5000 #### [facility] [address] [place], [address] OPIATES Positive Abnormal < 300 ng/mL [facility] Comment on above: Order Comment: URINE TOX Performed By: #### L 801.1541, L505.5000 #### [facility] [address] [place], [address] PCP Negative Normal < 25 ng/mL [facility] Comment on above: Order Comment: URINE TOX Performed By: #### L 801.1541, L505.5000 #### [facility] [address] [place], [address] THC Negative Normal < 50 ng/mL [facility] Comment on above: Order Comment: URINE TOX Performed By: #### L 801.1541, L505.5000 #### [facility] [address] [place], [address] VISTA UDS PH 6 Normal [facility] Comment on above: Order Comment: URINE TOX Performed By: #### L 801.1541, L505.5000 #### [facility] [address] [place], [address] SCRN MAMM (CAD)W/TRANG BILATo n 01-21-2024 SCRN MAMM (CAD)W/TRANG BILAT [facility] Imaging Services [address] [place], [place] [address] SCRN MAMM (CAD)W/TRANG BILAT MR#: [id number] Acct: [id number] Name: CARL LOUIS Rep #: [id number] : 1945 F 78 From: Leonides velasquez MD PCP: Dr. Corky Mensah MD Status: [facility] Study: SCRN MAMM (CAD)W/TRANG BILAT Date of Exam: 12/23 04/15 Exam# [id number] Ordering Dr: Corky Mensah MD ADDENDUM by Dr. Leonides Manriquez MD on 01/28/24 at 1452 ADDENDUM [id number] ADDENDUM report for voice recognition error. The microcalcifications are located in the central medial aspect of the right breast and not the lateral aspect. Electronically Signed: Leonides Manriquez MD at 14:52 EST , 01/28/241451 Date cc: Dr. Corky Mensah MD * Signed ADDENDUM by Dr. Leonides Manriquez MD on 01/28/24 at 1452 BI/SCRN MAMM (CAD)W/TRANG BILAT IMPRESSION: undefined 01/28/241458 Date cc: Dr. Corky Mensah MD * Signed [id number] MAMMOGRAPHY - BILATERAL SCREENING REASON FOR EXAM: Female, 78 years old. Routine annual screening examination. PERTINENT HISTORY: Sister with breast cancer. TECHNIQUE: Digital bilateral breast trang (3D mammographic acquisition) in the CC and MLO projections. 2-D mediolateral oblique (MLO) and craniocaudad (CC) views of both breasts were obtained. CAD: Full Field Digital Mammography with Computer Added Detection was performed. COMPARISON: Comparison is made with prior study of September 25, 2022 and August 07, 2018. FINDINGS: Breast Composition: There are scattered areas of fibroglandular density. Since prior study, there has been increase in number microcalcifications in the central lateral aspect of the right breast. The patient will be recalled for additional views including magnification spot views. Stable bilateral secretory calcifications. No other significant abnormalities are identified. BI/SCRN MAMM (CAD)W/TRANG BILAT IMPRESSION: Increase in the number of microcalcifications in the central lateral aspect of the right breast as described. The patient will be recalled for additional views including magnification spot views. ASSESSMENT CATEGORY: BIRADS Category 0: Incomplete. Need additional imaging evaluation. A letter regarding these results will be sent to the patient by the facility within 30 days. Approximately 10% of breast cancers are not detected by mammography. A normal mammogram should not delay biopsy of a clinically suspicious abnormality. [id number] Electronically Signed: Leonides Manriquez MD at 13:49 EDT , CC: Dr. Corky Mensah MD Junior [employer] Systems Administrator: Signed Normal [facility] Basophil percentageOrdered B y: Katie Reyes on 07-24-2023 Chloride [Moles/Vol] 101 mmol/L 98-107 [facility] Glucose [Mass/Vol] 87 mg/dL 74-106 [facility] Hemoglobin (Bld) [Mass/Vol] 13.9 g/dL 12.0-15.0 [facility] Potassium [Moles/Vol] 4.7 mmol/L 3.5-5.1 [facility] Sodium [Moles/Vol] 137 mmol/L 136-145 [facility] WBC (Bld) [#/Vol] 8.8 10*3/uL 4.4-11.0 [facility] Culture, urineOrdered By: Amena Reyes on 07-24-2023 Bacteria identified Cx Nom (U) Culture exhibits no growth. [facility] Determination of erythrocyte mean corpuscular volume (MCV)Ordered By: Katie Reyes on 07-24-2023 MCV (RBC) [Entitic vol] 97.0 fL 81-99 [facility] Erythrocyte distribution wid th ratioOrdered By: Katie Reyes on 07-24-2023 Erythrocyte distribution width (RBC) [Ratio] 12.3 % 11.6-14.6 [facility] Erythrocyte distribution wid th standard deviationOrdered By: Katie Reyes on 07-24-2023 Erythrocyte distribution width (RBC) [Entitic vol] 44.0 fL 35.1-43.9 [facility] Hematocrit Auto (Bld) [Volum e fraction]Ordered By: Katie Reyes on 07-24-2023 Hematocrit (Bld) [Volume fraction] 42.6 % 37-47 [facility] Laboratory - Chemistry and C hemistry - challengeOrdered By: Katie Reyes on 07-24-2023 CO2 [Moles/Vol] 30.0 mmol/L 21.0-32.0 [facility] Urea nitrogen/Creatinine [Mass ratio] 15.5 mg/mg 10-20 [facility] Laboratory - Chemistry and C hemistry - challengeon 07-24-2023 Bilirubin Ql (U) Negative [facility] Glucose Ql (U) Negative [facility] Ketones Ql (U) Small (15+) [facility] pH (U) 6 [pH] [facility] Specific gravity (U) [Rel density] 1.010 [facility] Urobilinogen (U) [Mass/Vol] Negative [facility] Laboratory - Hematology and Cell countsOrdered By: Katie Reyes on 07-24-2023 MCH (RBC) [Entitic mass] 31.7 pg 27.0-32.0 [facility] MCHC (RBC) [Mass/Vol] 32.6 g/dL 32-36 [facility] Platelet mean volume (Bld) [Entitic vol] 10.9 fL 6.2-12.0 [facility] Platelets (Bld) [#/Vol] 264 10*3/uL 150-450 [facility] - Hematology and Cell countson 07-24-2023 Hemoglobin Ql (U) Moderate [facility] - Specimen inform ationon 07-24-2023 Clarity (U) Cloudy [facility] Color (U) Yellow [facility] Laboratory - Urinalysison Nitrite Ql (U) Negative [facility] Protein Ql (U) Negative [facility] No Panel InformationOrdered By: Katie Reyes on 07-24-2023 Estimated GFR (MDRD) Amer 102 mL/min >60 [facility] Comment on above: GFR Calc Estimated GFR (MDRD) Non-Af Amer 85 mL/min >60 [facility] Comment on above: Non- GFR Calc No Panel Informationon 07-23 Urine Leukocytes Positive [facility] Urine Non-Hemolyzed Blood Small [facility] RBC Auto (Bld) [#/Vol]Ordere d By: Katie Reyes on 07-24-2023 RBC (Bld) [#/Vol] 4.39 10*6/uL 4.2-5.4 [facility] Serum or plasma calcium aleshia urement (mass/volume)Ordered By: Katie Reyes on 07-24-2023 Calcium [Mass/Vol] 9.4 mg/dL 8.5-10.1 [facility] Serum or plasma creatinine m easurement (mass/volume)Ordered By: Katie eRyes on 07-24-2023 Creatinine [Mass/Vol] 0.71 mg/dL 0.55-1.02 [facility] Comment on above: The validity of the calculated GFR & GFRAA in patients over 70 years has not been determined. Clinical correlation is essential. Serum or plasma urea nitroge n measurement (mass/volume)Ordered By: Katie Reyes on 07-24-2023 Urea nitrogen [Mass/Vol] 11 mg/dL 10-07 [facility] Thin prep Papanicolaou smear with manual screeningOrdered By: Katie Reyes on 07-24-2023 Thin prep Papanicolaou smear with manual screening 6 5-15 [facility] Absolute lymphocyte countOrd ered By: Corky Mensah on 06-08-2023 Lymphocytes Auto (Unsp spec) [#/Vol] 3.26 10*3/uL 0.83-4.51 [facility] Automated lymphocyte count a s percentage of total leukocytesOrdered By: Corky Mensah on 06-08-2023 Lymphocytes/100 WBC Auto (Unsp spec) 35.5 % 19-41 [facility] Basophil percentageOrdered B y: Corky Mensah on 06-08-2023 Basophils/100 WBC (Bld) 0.3 % 0-1 [facility] Chloride [Moles/Vol] 102 mmol/L 98-107 [facility] Eosinophils/100 WBC (Bld) 2.1 % 0-5 [facility] Glucose [Mass/Vol] 104 mg/dL 74-106 [facility] Comment on above: Fasting Glucose resu lt from 100 to 125 mg/dL suggests IMPAIRED HOMEOSTASIS per A.D.A. criteria. Hemoglobin (Bld) [Mass/Vol] 13.6 g/dL 12.0-15.0 [facility] Monocytes/100 WBC (Bld) 8.0 % 0-10 [facility] Neutrophils (Bld) [#/Vol] 4.9 10*3/uL 2.0-7.7 [facility] Neutrophils/100 WBC (Bld) 53.4 % 47-70 [facility] Potassium [Moles/Vol] 4.2 mmol/L 3.5-5.1 [facility] Sodium [Moles/Vol] 137 mmol/L 136-145 [facility] WBC (Bld) [#/Vol] 9.2 10*3/uL 4.4-11.0 [facility] Determination of erythrocyte mean corpuscular volume (MCV)Ordered By: Corky Mensah on 06-08-2023 MCV (RBC) [Entitic vol] 97.9 fL 81-99 [facility] Erythrocyte distribution wid th ratioOrdered By: [facility] Center[facility] Campbellbenedicto on 06-08-2023 Erythrocyte distribution width (RBC) [Ratio] 12.9 % 11.6-14.6 [facility] Erythrocyte distribution wid th standard deviationOrdered By: Verenicewills memorial hospitalhumera Campbellbenedicto on 06-08-2023 Erythrocyte distribution width (RBC) [Entitic vol] 46.3 fL 35.1-43.9 [facility] Hematocrit Auto (Bld) [Volum e fraction]Ordered By: Corky Mensah on 06-08-2023 Hematocrit (Bld) [Volume fraction] 41.1 % 37-47 [facility] Immature granulocytes/100 WB C Auto (Bld)Ordered By: berna Mensah on 06-08-2023 Immature granulocytes/100 WBC (Bld) 0.700 % 0.0-0.9 [facility] Comment on above: IG% - Immature Granu locytes (promyelocytes, myelocytes and metamyelocytes) > 1% indicates that a LEFT SHIFT is Present. Laboratory - Chemistry and C hemistry - challengeOrdered By: Corky Mensah on 06-08-2023 CO2 [Moles/Vol] 27.0 mmol/L 21.0-32.0 [facility] Urea nitrogen/Creatinine [Mass ratio] 19.0 mg/mg 10-20 [facility] Laboratory - Hematology and Cell countsOrdered By: Corky Mensah on 06-08-2023 MCH (RBC) [Entitic mass] 32.4 pg 27.0-32.0 [facility] MCHC (RBC) [Mass/Vol] 33.1 g/dL 32-36 [facility] Nucleated RBC/100 WBC (Bld) [Ratio] 0 % 0-5 [facility] Platelet mean volume (Bld) [Entitic vol] 10.8 fL 6.2-12.0 [facility] Platelets (Bld) [#/Vol] 269 10*3/uL 150-450 [facility] No Panel InformationOrdered By: Corky Mensah on 06-08-2023 Estimated GFR (MDRD) Amer 78 mL/min >60 [facility] Comment on above: GFR Calc Estimated GFR (MDRD) Non-Af Amer 65 mL/min >60 [facility] Comment on above: Non- GFR Calc RBC Auto (Bld) [#/Vol]Ordere d By: Corky Mensah on 06-08-2023 RBC (Bld) [#/Vol] 4.20 10*6/uL 4.2-5.4 [facility] Serum or plasma calcium aleshia urement (mass/volume)Ordered By: Corky Mensah on 06-08-2023 Calcium [Mass/Vol] 8.9 mg/dL 8.5-10.1 [facility] Serum or plasma creatinine m easurement (mass/volume)Ordered By: Corky Mensah on 06-08-2023 Creatinine [Mass/Vol] 0.89 mg/dL 0.55-1.02 [facility] Comment on above: The validity of the calculated GFR & GFRAA in patients over 70 years has not been determined. Clinical correlation is essential. Serum or plasma urea nitroge n measurement (mass/volume)Ordered By: Corky Mensah on 06-08-2023 Urea nitrogen [Mass/Vol] 17 mg/dL 10-07 [facility] Thin prep Papanicolaou smear with manual screeningOrdered By: Corky Mensah on 06-08-2023 Thin prep Papanicolaou smear with manual screening 8 5-15 [facility] Whole blood hemoglobin A1c/t otal hemoglobin ratio (mass fraction)Ordered By: Corky Mensah on 06-08-2023 HbA1c (Bld) [Mass fraction] 6.0 % 3.8-5.6 [facility] Comment on above: Normal < 5.7 % Predi abetic 5.7 - 6.4 % Diabetic >or= 6.5 % Please note range changes. Absolute lymphocyte countOrd ered By: Fransisco Barroso on 04-22-2023 Lymphocytes Auto (Unsp spec) [#/Vol] 2.45 10*3/uL 0.83-4.51 [facility] Automated lymphocyte count a s percentage of total leukocytesOrdered By: Fransisco Barroso on 04-22-2023 Lymphocytes/100 WBC Auto (Unsp spec) 31.5 % 19-41 [facility] Basophil percentageOrdered B y: Fransisco Barroso on 04-22-2023 Basophils/100 WBC (Bld) 0.5 % 0-1 [facility] Eosinophils/100 WBC (Bld) 2.2 % 0-5 [facility] Hemoglobin (Bld) [Mass/Vol] 10.7 g/dL 12.0-15.0 [facility] Monocytes/100 WBC (Bld) 11.7 % 0-10 [facility] Neutrophils (Bld) [#/Vol] 4.2 10*3/uL 2.0-7.7 [facility] Neutrophils/100 WBC (Bld) 53.6 % 47-70 [facility] WBC (Bld) [#/Vol] 7.8 10*3/uL 4.4-11.0 [facility] Determination of erythrocyte mean corpuscular volume (MCV)Ordered By: Fransisco Barroso on 04-22-2023 MCV (RBC) [Entitic vol] 98.8 fL 81-99 [facility] Erythrocyte distribution wid th ratioOrdered By: Fransisco Barroso on 04-22-2023 Erythrocyte distribution width (RBC) [Ratio] 12.9 % 11.6-14.6 [facility] Erythrocyte distribution wid th standard deviationOrdered By: Fransisco Barroso on 04-22-2023 Erythrocyte distribution width (RBC) [Entitic vol] 46.7 fL 35.1-43.9 [facility] Hematocrit Auto (Bld) [Volum e fraction]Ordered By: Fransisco Barroso on 04-22-2023 Hematocrit (Bld) [Volume fraction] 33.7 % 37-47 [facility] Immature granulocytes/100 WB C Auto (Bld)Ordered By: Fransisco Barroso on 04-22-2023 Immature granulocytes/100 WBC (Bld) 0.500 % 0.0-0.9 [facility] Comment on above: IG% - Immature Granu locytes (promyelocytes, myelocytes and metamyelocytes) > 1% indicates that a LEFT SHIFT is Present. Laboratory - Hematology and Cell countsOrdered By: Fransisco Barroso on 04-22-2023 MCH (RBC) [Entitic mass] 31.4 pg 27.0-32.0 [facility] MCHC (RBC) [Mass/Vol] 31.8 g/dL 32-36 [facility] Nucleated RBC/100 WBC (Bld) [Ratio] 0 % 0-5 [facility] Platelets (Bld) [#/Vol] 190 10*3/uL 150-450 [facility] Platelet mean volume Corbin-Ec ker (Bld) [Entitic vol]Ordered By: Fransisco Barroso on 04-22-2023 Platelet mean volume (Bld) [Entitic vol] 10.1 fL 6.2-12.0 [facility] RBC Auto (Bld) [#/Vol]Ordere d By: Fransisco Barroso on 04-22-2023 RBC (Bld) [#/Vol] 3.41 10*6/uL 4.2-5.4 [facility] Basophil percentageOrdered B y: Mariella Harris on 04-21-2023 Basophil percentage 3.0 mg/dL 2.5-4.9 [facility] Bilirubin [Mass/Vol] 0.50 mg/dL 0.20-1.00 [facility] Comment on above: For patients on eltr ombopag therapy, use of Dimension [place] TBIL is not recommended. Chloride [Moles/Vol] 107 mmol/L 98-107 [facility] Glucose [Mass/Vol] 104 mg/dL 74-106 [facility] Comment on above: Fasting Glucose resu lt from 100 to 125 mg/dL suggests IMPAIRED HOMEOSTASIS per A.D.A. criteria. Potassium [Moles/Vol] 3.8 mmol/L 3.5-5.1 [facility] Protein [Mass/Vol] 6.3 g/dL 6.4-8.2 [facility] Sodium [Moles/Vol] 137 mmol/L 136-145 [facility] Laboratory - Chemistry and C hemistry - challengeOrdered By: Mariella Harris on 04-21-2023 Albumin/Globulin [Mass ratio] 0.7 {ratio} 0.9-2.4 [facility] ALP [Catalytic activity/Vol] 52 U/L 45-117 [facility] ALT [Catalytic activity/Vol] 16 U/L 13-56 [facility] CO2 [Moles/Vol] 24.0 mmol/L 21.0-32.0 [facility] Globulin (S) [Mass/Vol] 3.7 g/dL 2.2-4.2 [facility] Magnesium [Mass/Vol] 2.2 mg/dL 1.6-2.6 [facility] Urea nitrogen/Creatinine [Mass ratio] 18.3 mg/mg 10-20 [facility] No Panel InformationOrdered By: Mariella Harris on 04-21-2023 Estimated Creatinine Clearance Calc 49.06 ml/min [facility] Estimated GFR (MDRD) Amer 138 mL/min >60 [facility] Comment on above: GFR Calc Estimated GFR (MDRD) Non-Af Amer 114 mL/min >60 [facility] Comment on above: Non- GFR Calc Methicillin-Resist S.aureus DNA PCR Negative Negative [facility] Serum or plasma calcium aleshia urement (mass/volume)Ordered By: Mariella Harris on 04-21-2023 Calcium [Mass/Vol] 7.9 mg/dL 8.5-10.1 [facility] Serum or plasma creatinine m easurement (mass/volume)Ordered By: Mariella Harris on 04-21-2023 Creatinine [Mass/Vol] 0.55 mg/dL 0.55-1.02 [facility] Comment on above: The validity of the calculated GFR & GFRAA in patients over 70 years has not been determined. Clinical correlation is essential. Serum or plasma thyroid stim ulating hormone (TSH) measurement (units/volume)Ordered By: Mariella Harris on 04-21-2023 TSH Qn 0.53 uIU/mL 0.358-3.74 [facility] Serum or plasma urea nitroge n measurement (mass/volume)Ordered By: Mariella Harris on 04-21-2023 Urea nitrogen [Mass/Vol] 10 mg/dL 7-18 [facility] Thin prep Papanicolaou smear with manual screeningOrdered By: Mariella Harirs on 04-21-2023 Thin prep Papanicolaou smear with manual screening 2.6 g/dL 3.2-5.0 [facility] Thin prep Papanicolaou smear with manual screening 7 U/L 15-37 [facility] Thin prep Papanicolaou smear with manual screening 6 5-15 [facility] Absolute lymphocyte countOrd ered By: Jose E Castro on 04-20-2023 Lymphocytes Auto (Unsp spec) [#/Vol] 2.07 10*3/uL 0.83-4.51 [facility] Automated lymphocyte count a s percentage of total leukocytesOrdered By: Jose E Castro on 04-20-2023 Lymphocytes/100 WBC Auto (Unsp spec) 16.0 % 19-41 [facility] Basophil percentageOrdered B y: Aleksandr Anderson on 04-20-2023 Lactate [Moles/Vol] 0.6 mmol/L 0.4-2.0 [facility] Basophil percentageOrdered B y: Jose E Castro on 04-20-2023 Basophil percentage 0 SEEN /hpf 0-5 [facility] Basophils/100 WBC (Bld) 0.1 % 0-1 [facility] Chloride [Moles/Vol] 102 mmol/L 98-107 [facility] Eosinophils/100 WBC (Bld) 0.1 % 0-5 [facility] Glucose [Mass/Vol] 99 mg/dL 74-106 [facility] Hemoglobin (Bld) [Mass/Vol] 12.5 g/dL 12.0-15.0 [facility] Monocytes/100 WBC (Bld) 6.9 % 0-10 [facility] Neutrophils (Bld) [#/Vol] 9.9 10*3/uL 2.0-7.7 [facility] Neutrophils/100 WBC (Bld) 76.5 % 47-70 [facility] Potassium [Moles/Vol] 3.8 mmol/L 3.5-5.1 [facility] Sodium [Moles/Vol] 134 mmol/L 136-145 [facility] WBC (Bld) [#/Vol] 12.9 10*3/uL 4.4-11.0 [facility] Bilirubin Test strip Ql (U)O rdered By: Jose E Castro on 04-20-2023 Bilirubin Ql (U) Negative Negative [facility] Determination of erythrocyte mean corpuscular volume (MCV)Ordered By: Jose E Castro on 04-20-2023 MCV (RBC) [Entitic vol] 94.9 fL 81-99 [facility] Erythrocyte distribution wid th ratioOrdered By: Jose E Castro on 04-20-2023 Erythrocyte distribution width (RBC) [Ratio] 12.6 % 11.6-14.6 [facility] Erythrocyte distribution wid th standard deviationOrdered By: Jose E Castro on 04-20-2023 Erythrocyte distribution width (RBC) [Entitic vol] 44.1 fL 35.1-43.9 [facility] Hematocrit Auto (Bld) [Volum e fraction]Ordered By: Jose E Castro on 04-20-2023 Hematocrit (Bld) [Volume fraction] 37.5 % 37-47 [facility] Immature granulocytes/100 WB C Auto (Bld)Ordered By: Jose E Castro on 04-20-2023 Immature granulocytes/100 WBC (Bld) 0.400 % 0.0-0.9 [facility] Comment on above: IG% - Immature Granu locytes (promyelocytes, myelocytes and metamyelocytes) > 1% indicates that a LEFT SHIFT is Present. Ketones Test strip Ql (U)Ord ered By: Jose E Castro on 04-20-2023 Ketones Ql (U) 15 mg/dl Negative [facility] Laboratory - Chemistry and C hemistry - challengeOrdered By: Jose E Castro on 04-20-2023 CO2 [Moles/Vol] 25.0 mmol/L 21.0-32.0 [facility] Urea nitrogen/Creatinine [Mass ratio] 15.6 mg/mg 10-20 [facility] Laboratory - Hematology and Cell countsOrdered By: Jose E Castro on 04-20-2023 MCH (RBC) [Entitic mass] 31.6 pg 27.0-32.0 [facility] MCHC (RBC) [Mass/Vol] 33.3 g/dL 32- [facility] Nucleated RBC/100 WBC (Bld) [Ratio] 0 % 0-5 [facility] Platelets (Bld) [#/Vol] 243 10*3/uL 150-450 [facility] Laboratory - Microbiology an d Antimicrobial susceptibilityOrdered By: Aleksandr Anderson on 04-20-2023 Bacteria identified Cx Nom (Bld) No growth in 5 days. [facility] Mucus LM Ql (Urine sed)Order ed By: Jose E Castro on 04-20-2023 Mucus Ql (Urine sed) 0 SEEN /hpf [facility] Nitrite Test strip Ql (U)Ord ered By: Jose E Castro on 04-20-2023 Nitrite Ql (U) Negative Negative [facility] No Panel InformationOrdered By: Mariella Harris on 04-20-2023 Streptococcus pneumoniae Antigen (M [facility] Streptococcus pneumoniae Antigen (M [facility] No Panel InformationOrdered By: Jose E Castro on 04-20-2023 Urine RBC 0 SEEN /hpf 0-5 [facility] Estimated Creatinine Clearance Calc 49.68 ml/min [facility] Estimated GFR (MDRD) Amer 103 mL/min >60 [facility] Comment on above: GFR Calc Estimated GFR (MDRD) Non-Af Amer 85 mL/min >60 [facility] Comment on above: Non- GFR Calc Troponin I High Sensitivity 8 pg/mL 3.0-54.0 [facility] Comment on above: Please Note: New Dianne t Units and Gender Specific Reference Ranges. For more information see Policy Stat Procedure [place] High Sensitivity Troponin (TNIH) and attachments. Platelet mean volume Corbin-Ec ker (Bld) [Entitic vol]Ordered By: Jose E Castro on 04-20-2023 Platelet mean volume (Bld) [Entitic vol] 10.8 fL 6.2-12.0 [facility] Protein Test strip Ql (U)Ord ered By: Jose E Castro on 04-20-2023 Protein Ql (U) 15 mg/dl Negative [facility] RBC Auto (Bld) [#/Vol]Ordere d By: Jose E Castro on 04-20-2023 RBC (Bld) [#/Vol] 3.95 10*6/uL 4.2-5.4 [facility] Respiratory pathogens detect ion panel by molecular detection methodOrdered By: Jose E Castro on 04-20-2023 Respiratory pathogens DNA and RNA panel TOMAS+probe (Resp) [facility] Respiratory pathogens DNA and RNA panel TOMAS+probe (Resp) [facility] Serum or plasma calcium aleshia urement (mass/volume)Ordered By: Jose E Castro on 04-20-2023 Calcium [Mass/Vol] 8.8 mg/dL 8.5-10.1 [facility] Serum or plasma creatinine m easurement (mass/volume)Ordered By: Jose E Castro on 04-20-2023 Creatinine [Mass/Vol] 0.71 mg/dL 0.55-1.02 [facility] Comment on above: The validity of the calculated GFR & GFRAA in patients over 70 years has not been determined. Clinical correlation is essential. Serum or plasma urea nitroge n measurement (mass/volume)Ordered By: Jose E Castro on 04-20-2023 Urea nitrogen [Mass/Vol] 11 mg/dL 7-18 [facility] Squamous epithelial cells de tection in urine sediment by light microscopyOrdered By: Jose E Castro on 04-20-2023 Epithelial cells.squamous LM Ql (Urine sed) 0 SEEN /hpf 5-10 [facility] Thin prep Papanicolaou smear with manual screeningOrdered By: Jose E Castro on 04-20-2023 Thin prep Papanicolaou smear with manual screening 7 5-15 [facility] Urine Legionella pneumophila antigen detectionOrdered By: Mariella Harris on 04-20-2023 L. pneumophila Ag Ql (U) [facility] L. pneumophila Ag Ql (U) [facility] Urine blood detectionOrdered By: Jose E Castro on 04-20-2023 RBC Ql (U) 25 /ul Negative [facility] Urine clarityOrdered By: Sahara Castro on 04-20-2023 Clarity (U) Clear Clear [facility] Urine color determinationOrd ered By: Jose E Castro on 04-20-2023 Color (U) Yellow Yellow [facility] Urine glucose detectionOrder ed By: Jose E Castro on 04-20-2023 Glucose Ql (U) Normal mg/dl Normal [facility] Urine leukocyte esterase det ection by dipstickOrdered By: Jose E Castro on 04-20-2023 Leukocyte esterase Test strip Ql (U) Negative Negative [facility] Urine pHOrdered By: Jose E fox on 04-20-2023 pH (U) 7.0 [pH] 5.0 - 8.0 [facility] Urine sediment bacteria coun t by microscopy (number/high power field)Ordered By: Jose E Castro on 04-20-2023 Bacteria LM.HPF (Urine sed) [#/Area] 0 /[HPF] None Seen [facility] Urine specific gravity measu rementOrdered By: Jose E Castro on 04-20-2023 Specific gravity (U) [Rel density] 1.010 1.002-1.030 [facility] Urine urobilinogen measureme ntOrdered By: Jose E Castro on 04-20-2023 Urobilinogen Ql (U) Normal mg/dl Normal [facility] Absolute lymphocyte countOrd ered By: Corky Mensah on 03-06-2023 Lymphocytes Auto (Unsp spec) [#/Vol] 3.27 10*3/uL 0.83-4.51 [facility] Basophil percentageOrdered B y: Corky Mensah on 03-06-2023 Basophils/100 WBC (Bld) 0.6 % 0-1 [facility] Bilirubin [Mass/Vol] 0.30 mg/dL 0.20-1.00 [facility] Comment on above: For patients on eltr ombopag therapy, use of Dimension [place] TBIL is not recommended. Chloride [Moles/Vol] 103 mmol/L 98-107 [facility] Eosinophils/100 WBC (Bld) 2.3 % 0-5 [facility] Glucose [Mass/Vol] 93 mg/dL 74-106 [facility] Neutrophils (Bld) [#/Vol] 5.7 10*3/uL 2.0-7.7 [facility] Neutrophils/100 WBC (Bld) 56.8 % 47-70 [facility] Potassium [Moles/Vol] 4.3 mmol/L 3.5-5.1 [facility] Protein [Mass/Vol] 8.2 g/dL 6.4-8.2 [facility] Sodium [Moles/Vol] 138 mmol/L 136-145 [facility] WBC (Bld) [#/Vol] 10.1 10*3/uL 4.4-11.0 [facility] Blood erythrocytes count (nu mber/volume)Ordered By: Corky Mensah on 03-06-2023 RBC (Bld) [#/Vol] 4.71 10*6/uL 4.2-5.4 [facility] Blood hemoglobin measurement (mass/volume)Ordered By: Corky Mensah on 03-06-2023 Hemoglobin (Bld) [Mass/Vol] 14.6 g/dL 12.0-15.0 [facility] Blood lymphocytes/100 leukoc ytesOrdered By: Corky Mensah on 03-06-2023 Lymphocytes/100 WBC (Bld) 32.5 % 19-41 [facility] Blood monocytes/100 leukocyt esOrdered By: Corky Mensah on 03-06-2023 Monocytes/100 WBC (Bld) 7.3 % 0-10 [facility] Blood platelet mean volumeOr dered By: Corky Mensah on 03-06-2023 Platelet mean volume (Bld) [Entitic vol] 11.2 fL 6.2-12.0 [facility] Determination of erythrocyte mean corpuscular volume (MCV)Ordered By: Corky Mensah on 03-06-2023 MCV (RBC) [Entitic vol] 95.3 fL 81-99 [facility] Hematocrit Auto (Bld) [Volum e fraction]Ordered By: Corky Mensah on 03-06-2023 Hematocrit (Bld) [Volume fraction] 44.9 % 37-47 [facility] Laboratory - Chemistry and C hemistry - challengeOrdered By: Corky Mensah on 03-06-2023 ALP [Catalytic activity/Vol] 67 U/L 45-117 [facility] ALT [Catalytic activity/Vol] 30 U/L 13-56 [facility] CO2 [Moles/Vol] 31.0 mmol/L 21.0-32.0 [facility] Globulin (S) [Mass/Vol] 4.4 g/dL 2.2-4.2 [facility] Urea nitrogen/Creatinine [Mass ratio] 13.8 mg/mg 10-20 [facility] Laboratory - Hematology and Cell countsOrdered By: Corky Mensah on 03-06-2023 Erythrocyte distribution width (RBC) [Entitic vol] 45.1 fL 35.1-43.9 [facility] Erythrocyte distribution width (RBC) [Ratio] 12.8 % 11.6-14.6 [facility] Immature granulocytes/100 WBC (Bld) 0.500 % 0.0-0.9 [facility] Comment on above: IG% - Immature Granu locytes (promyelocytes, myelocytes and metamyelocytes) > 1% indicates that a LEFT SHIFT is Present. MCH (RBC) [Entitic mass] 31.0 pg 27.0-32.0 [facility] Nucleated RBC/100 WBC (Bld) [Ratio] 0 % 0-5 [facility] MCHC Auto (RBC) [Mass/Vol]Or dered By: Corky Mensah on 03-06-2023 MCHC (RBC) [Mass/Vol] 32.5 g/dL 32-36 [facility] No Panel InformationOrdered By: Corky Mensah on 03-06-2023 Estimated GFR (MDRD) Amer 90 mL/min >60 [facility] Comment on above: GFR Calc Estimated GFR (MDRD) Non-Af Amer 74 mL/min >60 [facility] Comment on above: Non- GFR Calc Vitamin D 25-Hydroxy 50.8 ng/mL [facility] Comment on above: Vitamin D 25(OH) Sta tus Range Deficiency <20 ng/mL (50nmol/L) Insufficiency 20 - 30 ng/mL (50 - 75 nmol/L) Sufficiency 30 - 100 ng/mL (75 - 250 nmol/L) Toxicity >100 ng/mL (>250 nmol/L) Platelets bldOrdered By: Giuliano Mensah on 03-06-2023 Platelets (Bld) [#/Vol] 246 10*3/uL 150-450 [facility] Serum or plasma albumin aleshia urement (mass/volume)Ordered By: Corky Mensah on 03-06-2023 Albumin [Mass/Vol] 3.8 g/dL 3.2-5.0 [facility] Serum or plasma albumin/glob ulin mass ratioOrdered By: Corky Mensah on 03-06-2023 Albumin/Globulin [Mass ratio] 0.9 {ratio} 0.9-2.4 [facility] Serum or plasma calcium aleshia urement (mass/volume)Ordered By: Corky Mensah on 03-06-2023 Calcium [Mass/Vol] 9.2 mg/dL 8.5-10.1 [facility] Serum or plasma creatinine m easurement (mass/volume)Ordered By: Corky Mensah on 03-06-2023 Creatinine [Mass/Vol] 0.80 mg/dL 0.55-1.02 [facility] Comment on above: The validity of the calculated GFR & GFRAA in patients over 70 years has not been determined. Clinical correlation is essential. Serum or plasma urea nitroge n measurement (mass/volume)Ordered By: Corky Mensah on 03-06-2023 Urea nitrogen [Mass/Vol] 11 mg/dL 7-18 [facility] Thin prep Papanicolaou smear with manual screeningOrdered By: Corky Mensah 03-06-2023 Thin prep Papanicolaou smear with manual screening 19 U/L 15-37 [facility] Thin prep Papanicolaou smear with manual screening 4 5-15 [facility] Whole blood hemoglobin A1c/t otal hemoglobin ratio (mass fraction)Ordered By: Corky Mensah on 03-06-2023 HbA1c (Bld) [Mass fraction] 6.2 % 3.8-5.6 [facility] Comment on above: Normal < 5.7 % Predi abetic 5.7 - 6.4 % Diabetic >or= 6.5 % Please note range changes. Laboratory - Drug toxicology Ordered By: Roberta Edouard on 02-23-2023 Amphetamines Ql (U) Negative <1000 ng/mL [facility] Benzodiazepines Ql (U) Negative < 200 ng/mL [facility] Cannabinoids Screen Ql (U) Negative < 50 ng/mL [facility] Cocaine Ql (U) Negative < 300 ng/mL [facility] Opiates Ql (U) Positive < 300 ng/mL [facility] No Panel InformationOrdered By: Roberta Edouard on 02-23-2023 MDMA (Ecstasy) Screen Negative < 500 ng/mL [facility] Miscellaneous Test See comment [facility] Comment on above: [id number] 6+OXYCODONE-B UND (ng/mL) DRUG RESULT SCREEN CUTOFF____ Amphetamines,Urine Negative ng/mL 1000 Amphetamine test includes Amphetamine and Methamphetamine.Barbiturates Negative ng/mL 200Benzodiazepines Negative ng/mL 200Cannabinoid Negative ng/mL 20Cocaine (Metab) Negative ng/mL 300Opiates Positive ng/mL 300 Opiates test includes Codeine, Morphine, Hydromorphone, Hydrocodone. Please Note: Confirmation performed by Mass Spectrometry Codeine Negative 300 Morphine Negative 300 Hydromorphone Negative 300 Hydrocodone Positive Hydrocodone Conf, MS, UR 533 ng/mL 300Oxycodone/Oxymorphone,Urine Negative ng/mL 300 Test includes Oxycodone and Oxymorphone. TESTING PERFORMED AT [facility]. ORIGINAL REPORT ON FILE IN LAB CONTAINS ADDITIONAL TEST SITE INFORMATION. Urine Barbiturates Screen Negative < 200 ng/mL [facility] Urine Drug Screen Comment [facility] Comment on above: CONFIRMATORY TESTING FOR ALL POSITIVE URINE DRUG SCREENRESULTS WILL ONLY BE SENT OUT UPON PHYSICIAN ORDER. VISTA Urine Drug Screen methods provide only preliminaryanalytical test results. A more specific alternate chemicalmethod must be used in order to obtain a confirmedanalytical result. Gas chromatography/mass spectrometery(GC/MS) is the preferred confirmatory method. Clinicalconsideration and professional judgement should be appliedto any drug of abuse test result, particularly whenpreliminary positive results are used. URINE TCA TESTING MUST BE ORDERED SEPARATELY. USE TESTMNEMONIC: [facility] Urine Methadone Screen Negative < 300 ng/mL [facility] Urine phencyclidine (PCP) de tectionOrdered By: Roberta Edouard on 02-23-2023 Phencyclidine Ql (U) Negative < 25 ng/mL [facility] Absolute lymphocyte countOrd ered By: Dr. Watters on 03-27-2022 Lymphocytes Auto (Unsp spec) [#/Vol] 3.05 10*3/uL 0.83-4.51 [facility] Basophil percentageOrdered B y: Dr. Watters on 03-27-2022 Basophils/100 WBC (Bld) 0.4 % 0-1 [facility] Bilirubin [Mass/Vol] 0.30 mg/dL 0.20-1.00 [facility] Comment on above: For patients on eltr ombopag therapy, use of Dimension [place] TBIL is not recommended. Chloride [Moles/Vol] 101 mmol/L 98-107 [facility] Eosinophils/100 WBC (Bld) 1.7 % 0-5 [facility] Glucose [Mass/Vol] 97 mg/dL 74-106 [facility] Neutrophils (Bld) [#/Vol] 6.7 10*3/uL 2.0-7.7 [facility] Neutrophils/100 WBC (Bld) 61.7 % 47-70 [facility] Potassium [Moles/Vol] 3.6 mmol/L 3.5-5.1 [facility] Protein [Mass/Vol] 7.5 g/dL 6.4-8.2 [facility] Sodium [Moles/Vol] 138 mmol/L 136-145 [facility] WBC (Bld) [#/Vol] 10.9 10*3/uL 4.4-11.0 [facility] Blood erythrocytes count (nu mber/volume)Ordered By: Dr. Watters on 03-27-2022 RBC (Bld) [#/Vol] 4.55 10*6/uL 4.2-5.4 [facility] Blood hemoglobin measurement (mass/volume)Ordered By: Dr. Watters on 03-27-2022 Hemoglobin (Bld) [Mass/Vol] 14.4 g/dL 12.0-15.0 [facility] Blood lymphocytes/100 leukoc ytesOrdered By: Dr. Watters on 03-27-2022 Lymphocytes/100 WBC (Bld) 27.9 % 19-41 [facility] Blood monocytes/100 leukocyt esOrdered By: Dr. Watters on 03-27-2022 Monocytes/100 WBC (Bld) 7.9 % 0-10 [facility] Blood platelet mean volumeOr dered By: Dr. Watters on 03-27-2022 Platelet mean volume (Bld) [Entitic vol] 10.9 fL 6.2-12.0 [facility] Determination of erythrocyte mean corpuscular volume (MCV)Ordered By: Dr. Watters on 03-27-2022 MCV (RBC) [Entitic vol] 96.3 fL 81-99 [facility] Hematocrit Auto (Bld) [Volum e fraction]Ordered By: Dr. Watters on 03-27-2022 Hematocrit (Bld) [Volume fraction] 43.8 % 37-47 [facility] Laboratory - Chemistry and C hemistry - challengeOrdered By: Dr. Watters on 03-27-2022 ALP [Catalytic activity/Vol] 60 U/L 45-117 [facility] ALT [Catalytic activity/Vol] 31 U/L 13-56 [facility] CO2 [Moles/Vol] 29.0 mmol/L 21.0-32.0 [facility] Globulin (S) [Mass/Vol] 3.7 g/dL 2.2-4.2 [facility] Urea nitrogen/Creatinine [Mass ratio] 14.7 mg/mg 10-20 [facility] Laboratory - Hematology and Cell countsOrdered By: Dr. Watters on 03-27-2022 Erythrocyte distribution width (RBC) [Entitic vol] 50.2 fL 35.1-43.9 [facility] Erythrocyte distribution width (RBC) [Ratio] 14.1 % 11.6-14.6 [facility] Immature granulocytes/100 WBC (Bld) 0.400 % 0.0-0.9 [facility] Comment on above: IG% - Immature Granu locytes (promyelocytes, myelocytes and metamyelocytes) > 1% indicates that a LEFT SHIFT is Present. MCH (RBC) [Entitic mass] 31.6 pg 27.0-32.0 [facility] Nucleated RBC/100 WBC (Bld) [Ratio] 0 % 0-5 [facility] MCHC Auto (RBC) [Mass/Vol]Or dered By: Dr. Watters on 03-27-2022 MCHC (RBC) [Mass/Vol] 32.9 g/dL 32-36 [facility] No Panel InformationOrdered By: Dr. Watters on 03-27-2022 Estimated GFR (MDRD) Amer 88 mL/min >60 [facility] Comment on above: GFR Calc Estimated GFR (MDRD) Non-Af Amer 72 mL/min >60 [facility] Comment on above: Non- GFR Calc Thyroid Stimulating Hormone (TSH) 1.29 uIU/mL 0.358-3.74 [facility] Vitamin D 25-Hydroxy 49.8 ng/mL [facility] Comment on above: Vitamin D 25(OH) Sta tus Range Deficiency <20 ng/mL (50nmol/L) Insufficiency 20 - 30 ng/mL (50 - 75 nmol/L) Sufficiency 30 - 100 ng/mL (75 - 250 nmol/L) Toxicity >100 ng/mL (>250 nmol/L) Platelets bldOrdered By: Dr. Watters on 03-27-2022 Platelets (Bld) [#/Vol] 293 10*3/uL 150-450 [facility] Serum or plasma albumin aleshia urement (mass/volume)Ordered By: Dr. Watters on 03-27-2022 Albumin [Mass/Vol] 3.8 g/dL 3.2-5.0 [facility] Serum or plasma albumin/glob ulin mass ratioOrdered By: Dr. Watters on 03-27-2022 Albumin/Globulin [Mass ratio] 1.0 {ratio} 0.9-2.4 [facility] Serum or plasma calcium aleshia urement (mass/volume)Ordered By: Dr. Watters on 03-27-2022 Calcium [Mass/Vol] 9.3 mg/dL 8.5-10.1 [facility] Serum or plasma creatinine m easurement (mass/volume)Ordered By: Dr. Watters on 03-27-2022 Creatinine [Mass/Vol] 0.81 mg/dL 0.55-1.02 [facility] Comment on above: The validity of the calculated GFR & GFRAA in patients over 70 years has not been determined. Clinical correlation is essential. Serum or plasma urea nitroge n measurement (mass/volume)Ordered By: Dr. Watters on 03-27-2022 Urea nitrogen [Mass/Vol] 12 mg/dL 7-18 [facility] Thin prep Papanicolaou smear with manual screeningOrdered By: Dr. Watters on 03-27-2022 Thin prep Papanicolaou smear with manual screening 16 U/L 15-37 [facility] Thin prep Papanicolaou smear with manual screening 8 5-15 [facility] CARECOORDon 03-05-2022 [facility] TCC DCP Update: Pt remains on H6 for continued care of T3-T8 epidural hematoma in setting of + Factor V Leiden. Clinical Updates: Cont to hold DVT prophylaxis and NSAIDs. Pt up ambulating in halls, pt has declined need for Home Health PT/OT. Discharge Plan: Home with FWW (delivered) Discharge obstacles: None TCC will continue to follow. [facility] Progress Noteon 03-05-2022 Progress Note Discharge instructio ns given to pt. Scripts given to pt. Pt verbalizes understanding. IV removed without complications. Daughter gathered belongings and will drive pt home. [facility] Progress Note Adult Orthopaedic Sp ine Service Patient Name: Carl Louis Date of : 1945 Date: 03/05/22 Assessment: [...] output data in the 24 hours ending 03/05/22 0725 Spine Exam: * Exam was limited due [...] BUN 20 (H) 03/02/2022 CREATININE 0.73 03/02/2022 [facility] [id number] 03-04-2022 [id number] Spoke to patient and family member regarding home care therapy services. Pt politely declined home therapy, states she has been getting up and walking, doesn't feel that is needed now. Discussed DME, pt would like FWW for home. DME order placed and [facility] informed and will deliver to pt's room. PACC signing off. [facility] Progress Noteon 03-04-2022 Progress Note Occupational Therapy Facility/Department: Occupational Therapy Treatment NAME: Carl Louis : 1945 Date of Service: 03/04/2022 Discharge [...] Timed Code Treatment Minutes: (Self--1) MARTHA Pedersen [facility] Progress Note Nutrition update completed. Chart reviewed. Patient to be monitored and followed by the diet solar panel technician. Laure Greco, GABRIELLA [facility] [id number] 03-03-2022 [id number] Jigger Operator following case for Discharge Needs. [facility] CARECOORDon 03-03-2022 CARECOORD 76 yo pt transferred [...] Discharge obstacles TCC will continue to follow. [facility] Progress Noteon 03-03-2022 Progress Note Discussed transfer o f patient care to Dr Bush. They accepted. [facility] Progress Note Adult Orthopaedic Sp ine Service Patient Name: Carl Louis Date of : 1945 Date: 03/03/22 Assessment: [...] 2 tablet, Oral, BID Physical Exam: Vitals: 03/02/222029 BP: 129/62 Pulse: 73 Resp: 16 Temp: 37.1 ?C (98.8 ?F) SpO2: 94% Intake and Output Summary (Last 24 hours) at Date Time No intake or output data in the 24 hours ending 03/03/22651 Spine Exam: * Exam was limited due [...] 20 (H) 03/02/2022 CREATININE 0.73 03/02/[address] [facility] Progress Note ----- ----- Attestation signed by Dipika Brown MD at 03/03/2022 10:40 AM ~~~~~~~~~~~~~~~~~~~~~~~~~ ~~~~~~~~~~~~~~~~~~~~~~~~~ ~~~~~~~~~~~ ATTENDING ADDENDUM Patient Active Problem List Diagnosis Epidural hematoma Factor V Leiden mutation (CMS/HCC) (HCC) I personally supervised the LAUNDROMAT WORKER/ANNIE in the evaluation and development of a [...] any details corrected below. -Per Asim Hendricks APRN-CHUCKING AND SAWING MACHINE OPERATOR -Patient with a T3-8 epidural hematoma, hx [...] day (including chart review, care coordination, and zbjm-xw-rocr encounter) was spent discussing/counseling the patient/family regarding the care plan for Carl Louis. I examined independently and reviewed relevant data myself and may have done so in the context of team rounds. A full chart review was performed. I attest that this medical record entry accurately reflects signatures/notations that I made in my capacity as M.D. when I treated/diagnosed Carl Louis on the date of service above. I attest that this information is true, accurate, and complete to the best of my knowledge. Dipika Brown MD Department of Surgery Division of Trauma/Surgical Critical Care/Acute Care Surgery ----- Daily SICU Progress Note SAMANTHA 03/03/2022 6:35 AM Admit Date: 02/27/2022 HOSPITAL DAY \\4 HISTORY OF PRESENT ILLNESS: 76 year old female with history of factor V Leiden, hx of DVT and PE on coumadin presents as an emergent transfer from [facility] to [facility] ICU [...] tablet 37.5 mg, 37.5 mg, Oral, Nightly, Red Hendricks APRN - ELECTRICAL ASSISTANT, 37.5 mg at 03/02/222033 ondansetron ODT (Zofran-ODT) disintegrating tablet 4 mg, 4 mg, Oral, q8h PRN OR ondansetron (Zofran) injection 4 mg, 4 mg, IntraVENous, q6h PRN, Bianca Clark DO, 4 mg at 02/28/22 0843 oxyCODONE (Roxicodone) immediate release tablet 5 mg, 5 mg, Oral, q6h PRN, Bianca lCark, , 5 mg at 03/02/222254 pantoprazole (ProtoNix) EC [...] 40 mg, 40 mg, Oral, PRN, Bianca Clark, DO sodium chloride 0.9 % infusion, 5-250 mL/hr, IntraVENous, PRN, Bianca Clark DO ARE THERE PERTINENT UPDATES TO PAST,FAMILY, OR SOCIAL HISTORY?: No Subjec (more content not included)... [facility] Progress Noteon 03-02-2022 Progress Note Discussed w [...] discuss risks/benefits of IVC filter w patient. [facility] Progress Note Adult Orthopaedic Sp ine Service Patient Name: Carl Louis Date of : 1945 Date: 03/02/22 Assessment: [...] Procedure reviewed. Signed by: James Luther MD [facility] ECG 12-LEADon 03-01-2022 ECG 12-LEAD IMPRESSION: Sinus rhythm Borderline T abnormalities, anterior leads Electronically Signed On 03-01-2022 11:32:40 EST by Fransisco Villatoro [facility] Progress Noteon 03-01-2022 Progress Note Adult Orthopaedic Sp ine Service Patient Name: Carl Louis Date of : 1945 Date: 03/01/22 Assessment: [...] Procedure reviewed. Signed by: James Luther MD [facility] Progress Note ----- ----- Attestation signed by Kristin Saenz at 03/01/2022 [...] didn't), for which patient was transferred to [facility] ICU. She has remained neuro intact [...] day (including chart review, care coordination, and kzpk-xy-nyrp encounter) was spent discussing/counseling the patient/family regarding the care plan for Carl Louis. I examined the patient independently and reviewed relevant data myself and may have done so in the context of team rounds. A full chart review was performed. Kristin Saenz MD Division of Trauma Department of Surgery [facility] Pager: [phone] ----- Daily SICU Progress Note Resident 03/01/2022 7:02 AM Admit Date: 02/27/2022 HOSPITAL DAY 2 HISTORY OF PRESENT ILLNESS: 76 year old female with history of factor V Leiden, hx of DVT and PE on coumadin presents as an emergent transfer from [facility] to [facility] ICU [...] TID, Jonh Quinonez DO, 1,000 mg at 02/28/222041 cholecalciferol (Vitamin D-3) tablet 50 mcg, 2,000 Units, Oral, Daily, Jonh Quinonez DO, 50 mcg at 02/28/22 08 furosemide (Lasix) tablet 40 mg, 40 mg, [...] PRN, Chas Coles MD, 5 mg at 02/28/22 08 pantoprazole (ProtoNix) EC tablet 40 mg, 40 mg, Oral, Nightly, Jonh Quinonez DO, 40 mg at 02/28/222041 polyethylene glycol (PEG) 3350 (Miralax) packet 17 g, 17 g, Oral, Daily PRN, Fabián Gastelum MD potassium chloride CR (Klor-Con M10) ER tablet 40 mEq, 40 mEq, Oral, Daily, Natali Amor, LAUNDROMAT WORKER - ELECTRICAL ASSISTANT, 40 mEq at 02/28/22 1400 pregabalin (Lyrica) capsule 50 mg, 50 mg, Oral, TID, Laine Becerra MD, 50 mg at 02/28/222041 simethicone (Mylicon) drops 40 mg, 40 mg, Oral, PRN, Bianca Clark, sodium chloride 0.9 % infusion, 5-250 mL/hr, IntraVENous, PRN, Fabián Gastelum MD ARE THERE PERTINENT UPDATES TO PAST,FAMILY, OR SOCIAL HISTORY?: No Subjective: 76 (more content not included)... Normal 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 as indicated: Yes Confirmation of Payer with patient/family: Yes Payer Name: Medicare/[employer] [place]: Confirmation of Primary Care Physician: Confirmed PCP Name: Theo Wattres Seen in last 2 years?: Yes Primary Caregiver: Self If assistance needed, confirmed caregiver ready, willing and able to care for patient at discharge: Confirmed with: Living Arrangements Current Residence: House Number of Floors 2 Number of Entry Steps: 5 or more (ramp) Bed/Bath Levels: Both first floor Facility: Facility Name: Plan to Return: Lives with: Alone Support Systems: Children, Family members, Friends/neighbors, [employer]/elie community Activities of Daily Living Ambulation: Independent Bathing/Dressing: Independent Elimination/Continence/To ileting: Independent Feeding: Independent Who Assists with Activities of Daily Living: Instrumental Activities of Daily Living Prescription Coverage: Yes Pharmacy Used: [facility] in [place] Medication Management: Independent Transportation/Shopping: Independent Transportation Mode: [...] Information: Spoke with patient and daughter Yane ([phone]) at bedside. Admitted for epidural hematoma s/p injection for pain management on 02/25. Ortho consulted for spine management, nonoperative at this time due to extensive osteoporosis. OK for GMF. Pt lives independently at home alone in a 2 story ranch with fully finished basement. Pt has support from 3 children and catholic family. Pt was paralyzed and home was equipped with handicap accessibility except grab bars in shower. PT recommending home with home health PT and rolling walker, referral placed for [facility]. Plans to discharge home, dgtrs will stay with pt for several weeks, will have transportation home. TCC to follow. Tatyana Macdonald RN Normal [facility] Progress Noteon 02-28-2022 Progress Note Adult Orthopaedic Sp ine Service Patient Name: Carl Louis Date of : 1945 Date: 02/28/22 Assessment: [...] Procedure reviewed. Signed by: QUENTIN BULLOCK MD [facility] Progress Note Physical Therapy Facility/Department: T2 Physical Therapy Initial Evaluation NAME: Carl Louis : 1945 Date of Service: 02/28/2022 Discharge [...] history of Anemia, Factor V Leiden (CMS/HCC) ([facility]), Fibromyalgia, Gastritis, GERD (gastroesophageal reflux disease), Hiatal [...] Independent (without device) Transfer Assistance: Independent Active Semi Driver: Yes Occupation: Retired Objective Gross Assessment Gross [...] AM-PAC Inpa (more content not included)... Normal [facility] Progress Note Occupational Therapy Facility/Department: T2 Occupational Therapy Initial Evaluation NAME: Carl Louis : 1945 Date of Service: 02/28/2022 Discharge [...] Prognosis: Good Decision Making: Low Complexity Exam: [facility] REQUIRES OT FOLLOW-UP: Yes Activity Tolerance Activity Tolerance: Patient Tolerated treatment well Patient Diagnosis(es): The primary encounter diagnosis was Epidural hematoma. A diagnosis of History of DVT (deep vein thrombosis) was also pertinent to this visit. has a past medical history of Anemia, Factor V Leiden (CMS/HCC) ([facility]), Fibromyalgia, Gastritis, GERD (gastroesophageal reflux disease), Hiatal [...] Independent (without device) Transfer Assistance: Independent Active Semi Driver: Yes Occupation: Retired Objective Gross Assessment: Yes [...] ADL, Home M (more content not included)... [facility] Progress Note ----- ----- Attestation signed by Kristin Saenz at 02/28/2022 3:01 PM ATTENDING ADDENDUM [...] didn't), for which patient was transferred to [facility] ICU. She has remained neuro intact [...] negative for VTE - s/p [facility] at [facility] --> INR 1.0 today - will defer [...] day (including chart review, care coordination, and qviv-su-ezxy encounter) was spent discussing/counseling the patient/family regarding the care plan for Carl Louis. I examined the patient independently and reviewed relevant data myself and may have done so in the context of team rounds. A full chart review was performed. Kristin Saenz MD Division of Trauma Department of Surgery [facility] Pager: [phone] ----- Daily SICU Progress Note Resident 02/28/2022 7:58 AM Admit Date: 02/27/2022 HOSPITAL DAY 2 HISTORY OF PRESENT ILLNESS: 76 year old female with history of factor V Leiden, hx of DVT and PE on coumadin presents as an emergent transfer from [facility] to [facility] ICU [...] 1,000 mg, 1,000 mg, Oral, TID, Jonh Quinonez, DO, 1,000 mg at 02/27/222012 cholecalciferol (Vitamin D-3) tablet 50 mcg, 2,000 Units, Oral, Daily, Jonh Simonss, DO, 50 mcg at 02/27/22 1200 Influenza Vac A&B SA Adj quadrivalent (Fluad) [...] coumadin presents (more content not included)... Normal [facility] Progress Note Adult Orthopaedic Sp ine Service Patient Name: Carl Louis Date of : 1945 Date: 02/28/22 Assessment: [...] Rads: Radiological Procedure reviewed. Signed by: JOSHUA CARR MD [facility] COVID-19 virus antigen assay Ordered By: Dr. Watson on 02-27-2022 SARS-CoV-2 (COVID-19) Ag IA.rapid Ql (Resp) [facility] Consulton 02-27-2022 Consult Nutrition Assessment Type and Reason for Visit: RD Nutrition Re-Screen/LOS Nutrition Recommendations/Plan: Continue with Regular diet. Sign off to technical developer. Nutrition Assessment: Pt reports good appetite/intake FUNDRAISER, no food allergies, no weight loss. No nutritional concerns identified. Sophia Ruiz RD Contact: *[phone] or [employer] [place] [facility] Consult Ortho Spine H&P/Cons ult Patient: Carl Louis Date of : 1945 Acct: [id number] PCP: No primary care provider on file. Date of Admission: 02/27/2022 Date of Service: Pt seen/examined on 02/27/2022 Chief Complaint: Back pain after epidural steroid injection History Of Present Illness: 76 y.o. female who presents with thoracic spine pain after an injection at her regular pain clinic in [place] on 02/25. Patient reports she has been going to this clinic for years and receiving injections to help with pain she experiences from multiple spine and rib fractures from osteoporosis. She reports her spine fractures were diagnosed by her pain physician Dr. Edouard and he has been treating them for [...] thoracic spine and was subsequently transferred to [facility] for further evaluation and management. Patient states [...] and/or Pt. Patient ambulation status: no difficulty. Antiplatelets/Anticoagula tion includes: warfarin. Past Medical History: No past [...] at 02/27/22 0800, 100 mL/hr at 02/27/22 0800 Allergies: Patient has no allergy information on [...] No acute (more content not included)... Normal [facility] Progress Noteon 02-27-2022 Progress Note Entered in error Normal [facility] Progress Note Speech-Chip Crusher Operator ology Facility/Department: [facility] T2 CLINICAL BEDSIDE SWALLOW EVALUATION NAME: Carl Louis : 1945 ADMISSION DATE: 02/27/2022 ADMITTING DIAGNOSIS: has Epidural hematoma on their problem list. Recent Chest Xray/CT of Chest: None on file this admission. Date of Eval: 02/27/2022 Evaluating Therapist: Melvina Zavala MA, CCC-HOME OFFICE CLAIMS EXAMINER Current Diet level: Dietary Orders (From admission, [...] coumadin presents as an emergent transfer from [facility] to [facility] ICU [...] or bladder incontinence. Principal Problem: Epidural hematoma Carl Louis was referred for a bedside swallow evaluation [...] noted throughout session. Patient does not require HOME OFFICE CLAIMS EXAMINER services at this time. Treatment Plan Requires HOME OFFICE CLAIMS EXAMINER Intervention: No Frequency/Duration: (NA) for Recommended Diet and Intervention Recommend Regular Diet with Thin Liquids + safe swallow strategies. Patient clinically presents with an essentially normal swallow function, no HOME OFFICE CLAIMS EXAMINER services required at this time. Diet Solids [...] alert and sitting upright in bed upon HOME OFFICE CLAIMS EXAMINER arrival. HOME OFFICE CLAIMS EXAMINER spoke with RN prior to session, no [...] phase of the swallow function. Therapy Time HOME OFFICE CLAIMS EXAMINER Individual Minutes Time In: 812 Time Out: 822 Minutes: 10 A surgical mask and gloves were worn throughout session Melvina Zavala MA, CCC-HOME OFFICE CLAIMS EXAMINER 02/27/2022 8:51 AM Normal [facility] Absolute lymphocyte countOrd ered By: Dr. Watson on 02-26-2022 Lymphocytes Auto (Unsp spec) [#/Vol] 2.30 10*3/uL 0.83-4.51 [facility] Basophil percentageOrdered B y: Dr. Watson on 02-26-2022 Basophils/100 WBC (Bld) 0.2 % 0-1 [facility] Chloride [Moles/Vol] 105 mmol/L 98-107 [facility] Eosinophils/100 WBC (Bld) 0.4 % 0-5 [facility] Glucose [Mass/Vol] 121 mg/dL 74-106 [facility] Comment on above: Fasting Glucose resu lt from 100 to 125 mg/dL suggests IMPAIRED HOMEOSTASIS per A.D.A. criteria. Neutrophils (Bld) [#/Vol] 7.9 10*3/uL 2.0-7.7 [facility] Neutrophils/100 WBC (Bld) 71.3 % 47-70 [facility] Potassium [Moles/Vol] 4.2 mmol/L 3.5-5.1 [facility] Sodium [Moles/Vol] 137 mmol/L 136-145 [facility] WBC (Bld) [#/Vol] 11.1 10*3/uL 4.4-11.0 [facility] Blood erythrocytes count (nu mber/volume)Ordered By: Dr. Watson on 02-26-2022 RBC (Bld) [#/Vol] 4.07 10*6/uL 4.2-5.4 [facility] Blood hemoglobin measurement (mass/volume)Ordered By: Dr. Watson on 02-26-2022 Hemoglobin (Bld) [Mass/Vol] 12.6 g/dL 12.0-15.0 [facility] Blood lymphocytes/100 leukoc ytesOrdered By: Dr. Watson on 02-26-2022 Lymphocytes/100 WBC (Bld) 20.7 % 19-41 [facility] Blood monocytes/100 leukocyt esOrdered By: Dr. Watson on 02-26-2022 Monocytes/100 WBC (Bld) 7.0 % 0-10 [facility] Blood platelet mean volumeOr dered By: Dr. Watson on 02-26-2022 Platelet mean volume (Bld) [Entitic vol] 10.9 fL 6.2-12.0 [facility] Determination of erythrocyte mean corpuscular volume (MCV)Ordered By: Dr. Watson on 02-26-2022 MCV (RBC) [Entitic vol] 94.1 fL 81-99 [facility] Hematocrit Auto (Bld) [Volum e fraction]Ordered By: Dr. Watson on 02-26-2022 Hematocrit (Bld) [Volume fraction] 38.3 % 37-47 [facility] INR in Blood by Coagulation assayOrdered By: Dr. Watson on 02-26-2022 INR Coag (Bld) [Relative time] 2.0 {INR} [facility] Laboratory - Chemistry and C hemistry - challengeOrdered By: Dr. Watson on 02-26-2022 CO2 [Moles/Vol] 28.0 mmol/L 21.0-32.0 [facility] Urea nitrogen/Creatinine [Mass ratio] 18.8 mg/mg 10-20 [facility] Laboratory - CoagulationOrde red By: Dr. Watson on 02-26-2022 PT Coag (PPP) [Time] 22.0 s 11.7-14.9 [facility] Laboratory - Hematology and Cell countsOrdered By: Dr. Watson on 02-26-2022 Erythrocyte distribution width (RBC) [Entitic vol] 50.9 fL 35.1-43.9 [facility] Erythrocyte distribution width (RBC) [Ratio] 14.7 % 11.6-14.6 [facility] Immature granulocytes/100 WBC (Bld) 0.400 % 0.0-0.9 [facility] Comment on above: IG% - Immature Granu locytes (promyelocytes, myelocytes and metamyelocytes) > 1% indicates that a LEFT SHIFT is Present. MCH (RBC) [Entitic mass] 31.0 pg 27.0-32.0 [facility] Nucleated RBC/100 WBC (Bld) [Ratio] 0 % 0-5 [facility] MCHC Auto (RBC) [Mass/Vol]Or dered By: Dr. Watson on 02-26-2022 MCHC (RBC) [Mass/Vol] 32.9 g/dL 32-36 [facility] No Panel InformationOrdered By: Dr. Watson on 02-26-2022 Estimated Creatinine Clearance Calc 49.25 ml/min [facility] Estimated GFR (MDRD) Amer 106 mL/min >60 [facility] Comment on above: GFR Calc Estimated GFR (MDRD) Non-Af Amer 88 mL/min >60 [facility] Comment on above: Non- GFR Calc Platelets bldOrdered By: Dr. Watson on 02-26-2022 Platelets (Bld) [#/Vol] 233 10*3/uL 150-450 [facility] Serum or plasma calcium aleshia urement (mass/volume)Ordered By: Dr. Watson on 02-26-2022 Calcium [Mass/Vol] 8.9 mg/dL 8.5-10.1 [facility] Serum or plasma creatinine m easurement (mass/volume)Ordered By: Dr. Watson on 02-26-2022 Creatinine [Mass/Vol] 0.69 mg/dL 0.55-1.02 [facility] Comment on above: The validity of the calculated GFR & GFRAA in patients over 70 years has not been determined. Clinical correlation is essential. Serum or plasma urea nitroge n measurement (mass/volume)Ordered By: Dr. Watson on 02-26-2022 Urea nitrogen [Mass/Vol] 13 mg/dL 7-18 [facility] Thin prep Papanicolaou smear with manual screeningOrdered By: Dr. Watson on 02-26-2022 Thin prep Papanicolaou smear with manual screening 4 5-15 [facility] Laboratory - Drug toxicology on 10-31-2021 Amphetamines Ql (U) Negative <1000 ng/mL [facility] Work Phone: Benzodiazepines Ql (U) Negative < 200 ng/mL [facility] Work Phone: Cannabinoids Screen Ql (U) Negative < 50 ng/mL [facility] Work Phone: Cocaine Ql (U) Negative < 300 ng/mL [facility] Work Phone: Opiates Ql (U) Positive < 300 ng/mL [facility] Work Phone: No Panel Informationon 10-31 MDMA (Ecstasy) Screen Negative < 500 ng/mL [facility] Work Phone: Urine Barbiturates Screen Negative < 200 ng/mL [facility] Work Phone: Urine Drug Screen Comment [facility] Work Phone: Comment on above: CONFIRMATORY TESTING FOR ALL POSITIVE URINE DRUG SCREENRESULTS WILL ONLY BE SENT OUT UPON PHYSICIAN ORDER. VISTA Urine Drug Screen methods provide only preliminaryanalytical test results. A more specific alternate chemicalmethod must be used in order to obtain a confirmedanalytical result. Gas chromatography/mass spectrometery(GC/MS) is the preferred confirmatory method. Clinicalconsideration and professional judgement should be appliedto any drug of abuse test result, particularly whenpreliminary positive results are used. URINE TCA TESTING MUST BE ORDERED SEPARATELY. USE TESTMNEMONIC: [facility] Urine Methadone Screen Negative < 300 ng/mL [facility] Work Phone: Urine phencyclidine (PCP) de tectionon 10-31-2021 Phencyclidine Ql (U) Negative < 25 ng/mL [facility] Work Phone: Absolute lymphocyte counton 08-24-2021 Lymphocytes Auto (Unsp spec) [#/Vol] 1.24 10*3/uL 0.83-4.51 [facility] Work Phone: Basophil percentageon 2021 Basophils/100 WBC (Bld) 0.3 % 0-1 [facility] Work Phone: Chloride [Moles/Vol] 108 mmol/L 98-[address] [facility] [address] [facility] [place]: Eosinophils/100 WBC (Bld) 1.9 % 0-5 [facility] Work Phone: Glucose [Mass/Vol] 95 mg/dL 74-106 [facility] Work Phone: Neutrophils (Bld) [#/Vol] 7.4 10*3/uL 2.0-7.7 [facility] Work Phone: Neutrophils/100 WBC (Bld) 75.4 % 47-70 [facility] Work Phone: Potassium [Moles/Vol] 3.2 mmol/L 3.5-5.1 [facility] Work Phone: Sodium [Moles/Vol] 139 mmol/L 136-145 [facility] Work Phone: WBC (Bld) [#/Vol] 9.8 10*3/uL 4.4-11.0 [facility] Work Phone: Blood erythrocytes count (nu mber/volume)on 08-24-2021 RBC (Bld) [#/Vol] 3.98 10*6/uL 4.2-5.4 [facility] Work Phone: Blood hemoglobin measurement (mass/volume)on 08-24-2021 Hemoglobin (Bld) [Mass/Vol] 11.3 g/dL 12.0-15.0 [facility] Work Phone: Blood lymphocytes/100 leukoc yteson 08-24-2021 Lymphocytes/100 WBC (Bld) 12.6 % 19-41 [facility] Work Phone: Blood monocytes/100 leukocyt eson 08-24-2021 Monocytes/100 WBC (Bld) 9.3 % 0-10 [facility] Work Phone: Blood platelet mean volumeon 08-24-2021 Platelet mean volume (Bld) [Entitic vol] 10.4 fL 6.2-12.0 [facility] Work Phone: [phone] Determination of erythrocyte mean corpuscular volume (MCV)on 08-24-2021 MCV (RBC) [Entitic vol] 88.9 fL 81-99 [facility] Work Phone: Hematocrit Auto (Bld) [Volum e fraction]on 08-24-2021 Hematocrit (Bld) [Volume fraction] 35.4 % 37-47 [facility] Work Phone: [phone] INR in Blood by Coagulation assayon 08-24-2021 INR Coag (Bld) [Relative time] 3.6 {INR} [facility] Work Phone: [phone] Laboratory - Chemistry and C hemistry - challengeon 08-24-2021 CO2 [Moles/Vol] 26.0 mmol/L 21.0-32.0 [facility] Work Phone: [phone] Urea nitrogen/Creatinine [Mass ratio] 13.2 mg/mg 10-20 [facility] Work Phone: [phone] Laboratory - Coagulationon 0 08-24-2021 PT Coag (PPP) [Time] 35.8 s 11.7-14.9 [facility] Work Phone: [phone] Laboratory - Hematology and Cell countson 08-24-2021 Erythrocyte distribution width (RBC) [Entitic vol] 52.4 fL 35.1-43.9 [facility] Work Phone: [phone] Erythrocyte distribution width (RBC) [Ratio] 16.1 % 11.6-14.6 [facility] Work Phone: [phone] Immature granulocytes/100 WBC (Bld) 0.500 % 0.0-0.9 [facility] Work Phone: Comment on above: IG% - Immature Granu locytes (promyelocytes, myelocytes and metamyelocytes) > 1% indicates that a LEFT SHIFT is Present. MCH (RBC) [Entitic mass] 28.4 pg 27.0-32.0 [facility] Work Phone: Nucleated RBC/100 WBC (Bld) [Ratio] 0 % 0-5 [facility] Work Phone: MCHC Auto (RBC) [Mass/Vol]on 08-24-2021 MCHC (RBC) [Mass/Vol] 31.9 g/dL 32-36 [facility] Work Phone: No Panel Informationon 08-24 Estimated Creatinine Clearance Calc 48.92 ml/min [facility] Work Phone: Estimated GFR (MDRD) Amer 144 mL/min >60 [facility] Work Phone: Comment on above: GFR Calc Estimated GFR (MDRD) Non-Af Amer 119 mL/min >60 [facility] Work Phone: Comment on above: Non- GFR Calc Platelets bldon 08-24-2021 Platelets (Bld) [#/Vol] 236 10*3/uL 150-450 [facility] Work Phone: Serum or plasma calcium aleshia urement (mass/volume)on 08-24-2021 Calcium [Mass/Vol] 7.3 mg/dL 8.5-10.1 [facility] Work Phone: Serum or plasma creatinine m easurement (mass/volume)on 08-24-2021 Creatinine [Mass/Vol] 0.53 mg/dL 0.55-1.02 [facility] Work Phone: Comment on above: The validity of the calculated GFR & GFRAA in patients over 70 years has not been determined. Clinical correlation is essential. Serum or plasma urea nitroge n measurement (mass/volume)on 08-24-2021 Urea nitrogen [Mass/Vol] 7 mg/dL 7-18 [facility] Work Phone: Thin prep Papanicolaou smear with manual screeningon 08-24-2021 Thin prep Papanicolaou smear with manual screening 5 5-15 [facility] Work Phone: Basophil percentageon 2021 Basophil percentage 0-5 SEEN /hpf 0-5 [facility] Work Phone: Bilirubin Test strip Ql (U)o n 08-23-2021 Bilirubin Ql (U) Negative Negative [facility] Work Phone: Ketones Test strip Ql (U)on 08-23-2021 Ketones Ql (U) Negative Negative [facility] Work Phone: Mucus LM Ql (Urine sed)on Mucus Ql (Urine sed) 0 SEEN /hpf [facility] Work Phone: Nitrite Test strip Ql (U)on 08-23-2021 Nitrite Ql (U) Positive Negative [facility] Work Phone: Protein Test strip Ql (U)on 08-23-2021 Protein Ql (U) Negative Negative [facility] Work Phone: Squamous epithelial cells de tection in urine sediment by light microscopyon 08-23-2021 Epithelial cells.squamous LM Ql (Urine sed) 0-5 SEEN /hpf 5-10 [facility] Work Phone: Urine blood detectionon 06-0 RBC Ql (U) 25 /ul Negative [facility] Work Phone: RBC Ql (U) 0 SEEN /hpf 0-5 [facility] Work Phone: Urine clarityon 08-23-2021 Clarity (U) Clear Clear [facility] Work Phone: Urine color determinationon 08-23-2021 Color (U) Yellow Yellow [facility] Work Phone: Urine glucose detectionon Glucose Ql (U) Normal mg/dl Normal [facility] Work Phone: Urine leukocyte esterase det ection by dipstickon 08-23-2021 Leukocyte esterase Test strip Ql (U) Negative Negative [facility] Work Phone: Urine pHon 08-23-2021 pH (U) 6.0 [pH] 5.0 - 8.0 [facility] Work Phone: Urine sediment bacteria coun t by microscopy (number/high power field)on 08-23-2021 Bacteria LM.HPF (Urine sed) [#/Area] RARE /hpf None Seen [facility] Work Phone: Urine specific gravity measu rementon 08-23-2021 Specific gravity (U) [Rel density] 1.010 1.002-1.030 [facility] Work Phone: Urobilinogen Auto test strip Ql (U)on 08-23-2021 Urobilinogen Ql (U) 1 mg/dl Normal [facility] Work Phone: Absolute lymphocyte counton 07-31-2021 Lymphocytes Auto (Unsp spec) [#/Vol] 3.18 10*3/uL 0.83-4.51 [facility] Work Phone: Basophil percentageon 2021 Basophils/100 WBC (Bld) 0.3 % 0-1 [facility] Work Phone: Bilirubin [Mass/Vol] 0.30 mg/dL 0.20-1.00 [facility] Work Phone: [phone] Comment on above: For patients on eltr ombopag therapy, use of Dimension [place] TBIL is not recommended. Chloride [Moles/Vol] 101 mmol/L 98-107 [facility] Work Phone: Eosinophils/100 WBC (Bld) 1.5 % 0-5 [facility] Work Phone: Glucose [Mass/Vol] 78 mg/dL 74-106 [facility] Work Phone: Neutrophils (Bld) [#/Vol] 7.2 10*3/uL 2.0-7.7 [facility] Work Phone: Neutrophils/100 WBC (Bld) 61.1 % 47-70 [facility] Work Phone: Potassium [Moles/Vol] 4.1 mmol/L 3.5-5.1 [facility] Work Phone: Protein [Mass/Vol] 7.7 g/dL 6.4-8.2 [facility] Work [facility]: Sodium [Moles/Vol] 138 mmol/L 136-[facility] [place]: WBC (Bld) [#/Vol] 11.8 10*3/uL 4.4-11.0 [facility]: Blood erythrocytes count (nu mber/volume)on 07-31-2021 RBC (Bld) [#/Vol] 4.35 10*6/uL 4.2-5.4 [facility] Work Phone: Blood hemoglobin measurement (mass/volume)on 07-31-2021 Hemoglobin (Bld) [Mass/Vol] 12.1 g/dL 12.0-15.0 [facility] Work Phone: Blood lymphocytes/100 leukoc yteson 07-31-2021 Lymphocytes/100 WBC (Bld) 26.9 % 19-41 [facility] Work Phone: Blood monocytes/100 leukocyt eson 07-31-2021 Monocytes/100 WBC (Bld) 9.7 % 0-10 [facility] Work Phone: Blood platelet mean volumeon 07-31-2021 Platelet mean volume (Bld) [Entitic vol] 11.1 fL 6.2-12.0 [facility] Work Phone: Determination of erythrocyte mean corpuscular volume (MCV)on 07-31-2021 MCV (RBC) [Entitic vol] 88.7 fL 81-99 [facility] Work Phone: Hematocrit Auto (Bld) [Volum e fraction]on 07-31-2021 Hematocrit (Bld) [Volume fraction] 38.6 % 37-47 [facility] Work Phone: [phone] Laboratory - Chemistry and C hemistry - challengeon 07-31-2021 ALP [Catalytic activity/Vol] 61 U/L 45-117 [facility] Work Phone: ALT [Catalytic activity/Vol] 30 U/L 13-56 [facility] Work Phone: [phone] CO2 [Moles/Vol] 31.0 mmol/L 21.0-32.0 [facility] Work Phone: [phone] Globulin (S) [Mass/Vol] 4.1 g/dL 2.2-4.2 [facility] Work Phone: [phone] Urea nitrogen/Creatinine [Mass ratio] 17.1 mg/mg 10-20 [facility] Work Phone: [phone] Laboratory - Hematology and Cell countson 07-31-2021 Erythrocyte distribution width (RBC) [Entitic vol] 54.6 fL 35.1-43.9 [facility] Work Phone: [phone] Erythrocyte distribution width (RBC) [Ratio] 16.9 % 11.6-14.6 [facility] Work Phone: [phone] Immature granulocytes/100 WBC (Bld) 0.500 % 0.0-0.9 [facility] Work Phone: [phone] Comment on above: IG% - Immature Granu locytes (promyelocytes, myelocytes and metamyelocytes) > 1% indicates that a LEFT SHIFT is Present. MCH (RBC) [Entitic mass] 27.8 pg 27.0-32.0 [facility] Work Phone: [phone] Nucleated RBC/100 WBC (Bld) [Ratio] 0.2 % 0-5 [facility] Work Phone: [phone] MCHC Auto (RBC) [Mass/Vol]on 07-31-2021 MCHC (RBC) [Mass/Vol] 31.3 g/dL 32-36 [facility] Work Phone: [phone] No Panel Informationon 07-31 Estimated GFR (MDRD) Amer 95 mL/min >60 [facility] Work Phone: Comment on above: GFR Calc Estimated GFR (MDRD) Non-Af Amer 78 mL/min >60 [facility] Work Phone: Comment on above: Non- GFR Calc Thyroid Stimulating Hormone (TSH) 1.75 uIU/mL 0.358-3.74 [facility] Work Phone: Vitamin D 25-Hydroxy 46.4 ng/mL [facility] Work Phone: Comment on above: Vitamin D 25(OH) Sta tus Range Deficiency <20 ng/mL (50nmol/L) Insufficiency 20 - 30 ng/mL (50 - 75 nmol/L) Sufficiency 30 - 100 ng/mL (75 - 250 nmol/L) Toxicity >100 ng/mL (>250 nmol/L) Platelets bldon 07-31-2021 Platelets (Bld) [#/Vol] 303 10*3/uL 150-450 [facility] Work Phone: Serum or plasma albumin aleshia urement (mass/volume)on 07-31-2021 Albumin [Mass/Vol] 3.6 g/dL 3.2-5.0 [facility] Work Phone: Serum or plasma albumin/glob ulin mass ratioon 07-31-2021 Albumin/Globulin [Mass ratio] 0.9 {ratio} 0.9-2.4 [facility] Work Phone: Serum or plasma calcium aleshia urement (mass/volume)on 07-31-2021 Calcium [Mass/Vol] 9.4 mg/dL 8.5-10.1 [facility] Work Phone: Serum or plasma creatinine m easurement (mass/volume)on 07-31-2021 Creatinine [Mass/Vol] 0.76 mg/dL 0.55-1.02 [facility] Work Phone: Comment on above: The validity of the calculated GFR & GFRAA in patients over 70 years has not been determined. Clinical correlation is essential. Serum or plasma urea nitroge n measurement (mass/volume)on 07-31-2021 Urea nitrogen [Mass/Vol] 13 mg/dL 7-18 [facility] Work Phone: Thin prep Papanicolaou smear with manual screeningon 07-31-2021 Thin prep Papanicolaou smear with manual screening 18 U/L 15-37 [facility] Work Phone: Thin prep Papanicolaou smear with manual screening 6 5-15 [facility] Work Phone: Laboratory - Drug toxicology on 04-15-2021 Amphetamines Ql (U) Negative [facility] Work Phone: Benzodiazepines Ql (U) Negative [facility] Work Phone: Cannabinoids Screen Ql (U) Negative [facility] Work Phone: Cocaine Ql (U) Negative [facility] Work Phone: Opiates Ql (U) Positive [facility] Work Phone: No Panel Informationon 04-15 Miscellaneous Test See comment [facility] Work Phone: Comment on above: [id number] 6+OXYCODONE-B UND (ng/mL) DRUG RESULT SCREEN CUTOFF____ Amphetamines,Urine Negative ng/mL 1000 Amphetamine test includes Amphetamine and Methamphetamine.Barbiturates Negative ng/mL 200Benzodiazepines Negative ng/mL 200Cannabinoid Negative ng/mL 20Cocaine (Metab) Negative ng/mL 300Opiates Positive ng/mL 300 Opiates test includes Codeine, Morphine, Hydromorphone, Hydrocodone. Codeine Negative 300Morphine Negative 300Hydromorphone Negative 300Hydrocodone PositiveHydrocodone Conf,MS,UR 1284 ng/mL 300Oxycodone/Oxymorphone,Urine Negative ng/mL 300 Test includes Oxydodone and Oxymorphone. TESTING PERFORMED AT [facility]. ORIGINAL REPORT ON FILE IN LAB CONTAINS ADDITIONAL TEST SITE INFORMATION. Urine Barbiturates Screen Negative [facility] Work Phone: Urine Drug Screen Comment [facility] Work Phone: Comment on above: CONFIRMATORY TESTING FOR ALL POSITIVE URINE DRUG SCREENRESULTS WILL ONLY BE SENT OUT UPON PHYSICIAN ORDER. VISTA Urine Drug Screen methods provide only preliminaryanalytical test results. A more specific alternate chemicalmethod must be used in order to obtain a confirmedanalytical result. Gas chromatography/mass spectrometery(GC/MS) is the preferred confirmatory method. Clinicalconsideration and professional judgement should be appliedto any drug of abuse test result, particularly whenpreliminary positive results are used. URINE TCA TESTING MUST BE ORDERED SEPARATELY. USE TESTMNEMONIC: [facility] Urine Methadone Screen Negative [facility] Work Phone: Urine Methamphetamine-MDMA Screen Negative [facility] Work Phone: Urine phencyclidine (PCP) de tectionon 04-15-2021 Phencyclidine Ql (U) Negative [facility] Work Phone: BASIC METABOLIC PANELon 11-2 Anion gap 4 mmol/L Abnormal 7-16 [facility] Comment on above: Performed By: #### L [id number] ####[facility] CLIA [id number] [place] [address] BUN (urea nitrogen) 8 mg/dL Normal 7-18 [facility] Comment on above: Performed By: #### L [id number] ####[facility] CLIA [id number] [place] [address] Calcium 8.6 mg/dL Normal 8.5-10.1 [facility] Comment on above: Performed By: #### L [id number] ####[facility] CLIA [id number] [place] [address] Chloride 105 mmol/L Normal 98-107 [facility] Comment on above: Performed By: #### L [id number] ####[facility] CLIA [id number] [place] [address] CO2 30 mmol/L Normal 21-32 [facility] Comment on above: Performed By: #### L [id number] ####[facility] CLIA [id number] [place] [address] Creatinine 0.7 mg/dL Normal 0.6-1.30 [facility] Comment on above: Performed By: #### L [id number] ####[facility] CLIA [id number] [place] [address] eGFR (black) mL/min/{1.73_m2} Normal >60 [facility] Comment on above: Result Comment: GFR is estimated using creatinine, age, gender, and race. Patient's values should be interpreted as a trend. For additional information: [email or web address] Performed By: #### L [id number] ####[facility] CLIA [id number] [place] [address] eGFR (non-black) mL/min/{1.73_m2} Normal >60 [facility] Comment on above: Result Comment: GFR is estimated using creatinine, age, gender, and race. Patient's values should be interpreted as a trend. For additional information: [email or web address] Performed By: #### L [id number] ####[facility] CLIA [id number] [place] [address] Glucose mass conc 86 mg/dL Normal 74-106 [facility] Comment on above: Performed By: #### L [id number] ####[facility] CLIA [id number] [place] [address] Potassium molar conc 4.0 mmol/L Normal 3.5-5.1 [facility] Comment on above: Performed By: #### L [id number] ####[facility] CLIA [id number] [place] [address] Sodium 139 mmol/L Normal 136-145 [facility] Comment on above: Performed By: #### L [id number] ####[facility] CLIA [id number] [place] [address] CBC W/DIFFon 02-12-2017 Basophils/100 WBC Auto (Bld) 0.3 % Normal [facility] Comment on above: Performed By: #### L [id number] ####[facility] CLIA [id number] [place] [address] BSA (Body Surface Area) 0.0 K/uL Normal 0.0-0.1 [facility] Comment on above: Performed By: #### L [id number] ####[facility] CLIA [id number] [place] [address] Eosinophils 2.0 10*3/uL Normal [facility] Comment on above: Performed By: #### L [id number] ####[facility] CLIA [id number] [place] [address] Eosinophils 0.3 10*3/uL Normal 0.0-0.4 [facility] Comment on above: Performed By: #### L [id number] ####[facility] CLIA [id number] [place] [address] Erythrocyte distribution width Auto Ratio (RBC) 14.7 % Normal 11.7-15.2 [facility] Comment on above: Performed By: #### L [id number] ####[facility] CLIA [id number] [place] [address] Erythrocytes (RBC) 4.16 10*6/uL Normal 3.86-5.17 [facility] Comment on above: Performed By: #### L [id number] ####[facility] CLIA [id number] [place] [address] Hematocrit (HCT) 38.7 % Normal 35.8-46.5 [facility] Comment on above: Performed By: #### L [id number] ####[facility] CLIA [id number] [place] [address] Hemoglobin mass conc (Bld) 12.8 g/dL Normal 12.1-15.8 [facility] Comment on above: Performed By: #### L [id number] ####[facility] CLIA [id number] [place] [address] Lymphocytes 14.9 10*3/uL Normal [facility] Comment on above: Performed By: #### L [id number] ####[facility] CLIA [id number] [place] [address] Lymphocytes 2.0 10*3/uL Normal 0.8-3.6 [facility] Comment on above: Performed By: #### L [id number] ####[facility] CLIA [id number] [place] [address] MCH 30.8 pg Normal 28.4-33.4 [facility] Comment on above: Performed By: #### L [id number] ####[facility] CLIA [id number] [place] [address] MCHC mass conc (RBC) 33.1 g/dL Normal 31.1-37.0 [facility] Comment on above: Performed By: #### L [id number] ####[facility] CLIA [id number] [place] [address] MCV 93.0 fL Normal 85.0-99.0 [facility] Comment on above: Performed By: #### L [id number] ####[facility] CLIA [id number] [place] [address] Monocytes 1.0 10*3/uL Abnormal 0.3-0.9 [facility] Comment on above: Performed By: #### L [id number] ####[facility] CLIA [id number] [place] [address] Monocytes 7.5 10*3/uL Normal [facility] Comment on above: Performed By: #### L [id number] ####[facility] CLIA [id number] [place] [address] Neutrophils 9.9 10*3/uL Abnormal 2.0-7.3 [facility] Comment on above: Performed By: #### L [id number] ####[facility] CLIA [id number] [place] [address] Neutrophils 75.3 10*3/uL Normal [facility] Comment on above: Performed By: #### L [id number] ####[facility] CLIA [id number] [place] [address] Platelets 269 10*3/uL Normal 154-393 [facility] Comment on above: Performed By: #### L [id number] ####[facility] CLIA [id number] [place] [address] WBC (Leukocytes) 13.2 10*3/uL Abnormal 4.0-10.5 [facility] Comment on above: Performed By: #### L [id number] ####[facility] CLIA [id number] [facility] [place] [address] ED Provider Noteson 02-13-20 ED Provider Notes Encounter Department : [facility] Provider Notes by Suzanne Martin DO at 02/12/2017 12:32 PMAuthor: Krissy Langleyice: Emergency MedicineAuthor Type: ED PhysicianFiled: 02/12/2017 12:33 PMDate of Service: 02/12/2017 12:32 PMStatus: SignedEditor: Suzanne Martin DO (ED Physician)I have fully participated in the care of this patient and have had a [id number] evaluation. Ihave reviewed and agree with all pertinent clinical information, and resident's history, andphysical exam. I have also reviewed the labs,, imaging studies and treatment plan. I have alsoreviewed and agree with the medications, allergies and past medical history section for thispatient. I agree with the diagnosis, and I concur1.Urinary tract infection with hematuria, site unspecified2.Right anterior knee painSophia Roberto, 02/12/17 1233 Normal [facility] ED Provider Notes Encounter Department : [facility] EMERGENCY DEPART[facility]ED Provider Notes by Lynnette Wilder DO at 02/12/2017 10:38 AMAuthor: Krissy Royice: Emergency MedicineAuthor Type: ED PhysicianFiled: 02/12/2017 12:22 PMDate of Service: 02/12/2017 10:38 AMStatus: SignedEditor: Lynnette Wilder DO (ED Physician)Cosigner: Suzanne Martin DO at 02/12/201712:33 PMCHIEF COMPLAINTChief ComplaintPatient presents with -Dysuria -Knee PainHPIMtorri Louis is a 71 y.o. female who presents [...] current facility-administered medications for this encounter.Current Outpatient PrescriptionsMedicationSi gDispenseRefill -b complex vitamins (JERZY B) tabletTake 1 tablet by mouth daily. -cephALEXin (KEFLEX) 500 mg capsuleTake 1 capsule by mouth 3 times daily for 7 days.21 capsule0 -cholecalciferol (VITAMIN D3) 1,000 unit Tab tabletTake 1,000 Units by mouth daily. -clonazePAM (KLONOPIN) 0.5 mg tabletTake 0.5 mg by mouth 2 times daily as needed for Anxiety. -HYDROcodone-acetaminophe n (NORCO) 5-325 mg tabletTake 1 tablet by [...] 5 mg tabletTake 5 mg by mouth daily.ALLERGIESAllergiesA llergenReactions -[place] Oil -Frovatriptan -Imitrex [Sumatriptan Succinate] -Iodine -Vitamin E (Bulk)PHYSICAL EXAMVITAL SIGNS: BP 157/82 Pulse 85 Temp 97.5 ?F (36.4 ?C) Resp 18 Ht 4' 9 (1.448 m) Wt 145lb (65.8 kg) SpO2 99% BMI 31.38 kg/d8Ewrfmgsqzuvbkv: Well developed, Well nourished, nontoxic in appearanceHENT: [...] palpation or major deformities noted. Moving all extremitiesappropriately. Neurologic: Alert , cranial nerves grossly intact, Normal sensory function, Normal motor function,No focal deficits noted.Psychiatric: Affect and mood appropriate for situationRADIOLOGY/PROCED URESI have personally reviewed all of the imaging results for this case.Last Imaging resultsResults for orders placed or performed during the hospital encounter of 02/12/17XR-KNEE RIGHT 1-2 VIEWSNarrativePROCEDURE:X R-KNEE RIGHT 1-2 VIEWSDATE OF EXAM: 02/12/2017 11:44 [...] are maintained. There is no significant soft tissueswelling.Impression Slightly limited study with no evidence for acute findings.Electronically Signed by: Raji Castro MD, 02/12/2017 11:51 AMLabs ReviewedURINALYSIS W/REFLEX MICROSCOPY - Abnormal; Notable for the following: ResultValueRef RangeStatusUrine ColorOrange (*)YellowFinalGlucose Exrqrfdins974.0 (*)Negative mg/dLFinalBlood UrinalysisLarge (*)NegativeFinalProtein Urinalysis>=300 (*)Negative mg/dLFinalUrine NitritePositive (*)NegativeFinalBilirubin UrinalysisSmall (*)NegativeFinalUrobilino gen Urinalysis4.0 (*)0.2 - 1.0 EU/dLFinalLeukocytes UrinalysisModerate (*)NegativeFinalAll [...] Abnormal; Notable for the following:Urine White Blood Bwldp07-54 (*)0 - 3 /hpfFinalUrine Red Blood Kocdf10-17 (*)0 - 3 /hpfFinalUrine Bacteria1+ (*)Negative /hpfFinalAll [...] up with her primary care doctor in [facility] in the next few days. 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 They are satisfied withthe diagnosis and state their understanding of the current plan of care.I have spoken to the attending physician about this patient and they agree with workup anddisposition.FINAL [id number].Urin deana tract infection with hematuria, site ruicalpfozqW25.0R31.92.Ri ght anterior knee painM25.561This chart has been completed using [employer] software, and while attempts have beenmade to ensure accuracy, certain words and phrases may not be transcribed as intended.Electronicallysi gned by:Lynnette Wilder, DO02/12/17 1222 Normal [facility] URINALYSIS MICROSCOPIC ONLYo n 02-12-2017 URINE RED BLOOD CELLS 20-50 Abnormal 0-3 [facility] Comment on above: Performed By: #### L [id number], [id number] ####[facility] CLIA [id number] [place] [address] URINE WHITE BLOOD CELLS 10-20 Abnormal 0-3 [facility] Comment on above: Performed By: #### L AB347, [id number] ####[facility] CLIA [id number] [place] [address] Urine, bacteria in sediment 1+ /hpf Abnormal Negative [facility] Comment on above: Performed By: #### L [id number], [id number] ####[facility] CLIA [id number] [place] [address] Urine, epithelial cells in sediment 0-3 Normal 0-3 [facility] Comment on above: Performed By: #### L AB347, [id number] ####[facility] CLIA [id number] [place] [address] URINALYSIS W/REFLEX MICROSCO PYon 02-12-2017 BILIRUBIN, UA Small Abnormal Negative [facility] Comment on above: Result Comment: Urin e bilirubin confirmation is no longer performed routinely. A serum total bilirubin or urine ictotest should be ordered if clinically indicated. Performed By: #### L AB347, [id number] ####[facility] CLIA [id number] [place] [address] BLOOD, UA Large Abnormal Negative [facility] Comment on above: Performed By: #### L AB347, [id number] ####[facility] CLIA [id number] [place] [address] GLUCOSE, UA 250.0 mg/dL Abnormal Negative [facility] Comment on above: Performed By: #### L AB347, [id number] ####[facility] CLIA [id number] [place] [address] KETONES, UA Negative Normal Negative [facility] Comment on above: Performed By: #### L AB347, [id number] ####[facility] CLIA [id number] [place] [address] LEUKOCYTES, UA Moderate Abnormal Negative [facility] Comment on above: Performed By: #### L AB347, [id number] ####[facility] CLIA [id number] [place] [address] PH, UA 6.5 Normal 5.0-8.0 [facility] Comment on above: Performed By: #### L AB347, [id number] ####[facility] CLIA [id number] [place] [address] PROTEIN, UA >=300 Abnormal Negative [facility] Comment on above: Performed By: #### L AB347, [id number] ####[facility] CLIA [id number] [place] [address] SPECIFIC GRAVITY, UA 1.005 Normal 1.001-1.035 [facility] Comment on above: Performed By: #### L AB347, [id number] ####[facility] CLIA [id number] [place] [address] Urine, appearance Clear Normal Clear [facility] Comment on above: Performed By: #### L AB347, [id number] ####[facility] CLIA [id number] [place] [address] Urine, color Porter Abnormal Yellow [facility] Comment on above: Result Comment: Due to color of urine some dipstick values may not be accurate. Performed By: #### L AB347, [id number] ####[facility] CLIA [id number] [place] [address] Urine, nitrite presence Positive Abnormal Negative [facility] Comment on above: Performed By: #### L AB347, [id number] ####[facility] CLIA [id number] [place] [address] UROBILINOGEN, UA 4.0 EU/dL Abnormal 0.2-1.0 [facility] Comment on above: Performed By: #### L AB347, [id number] ####[facility] CLIA [id number] [facility] [place] [address] XR-KNEE RIGHT 1-2 VIEWSon XR-KNEE RIGHT 1-2 VIEWS PROCEDURE: XR-KN EE RIGHT 1-2 VIEWSDATE OF EXAM: 02/12/2017 11:44 [...] Raji Castro MD, 02/12/2017 11:51 AM Normal [facility] Office Visiton 09-01-2016 Documentation of current medications (procedure) Done Invalid Interpretation Code [facility] Work Phone: Protein mass conc Done [facility] Work Phone: [phone] Clinical Lists Update: Pre 08-29-2016 Left ventricular Ejection fraction 60 % [facility] Work Phone: Office Visiton 09-03-2015 Dietary management education, guidance, and counseling (procedure) yes Invalid Interpretation Code [facility] Work Phone: [phone] Documentation of current medications (procedure) Done Invalid Interpretation Code [facility] Work Phone: [phone] Clinical Lists Update: 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 Alanine aminotransferase (ALT) 29 U/L [facility] Work Phone: [phone] Aspartate aminotransferase (AST) 18 U/L [facility] Work Phone: [phone] BUN/Creatinine Ratio 24.7 mg/mg [facility] Work Phone: [phone] Calcium 8.6 mg/dL [facility] Work Phone: [phone] Chloride 104 mmol/L [facility] Work Phone: [phone] CO2 26.0 mmol/L Invalid Interpretation Code [facility] Work Phone: [phone] CO2 ppres (BldV) 26.0 mmol/L [facility] Work Phone: [phone] Creatinine 0.65 mg/dL [facility] Work Phone: [phone] Hematocrit (HCT) 43.0 % Invalid Interpretation Code [facility] Work Phone: [phone] Hematocrit Volume Fraction (Bld) 43.0 % [facility] Work Phone: [phone] Hemoglobin (HGB) 13.8 g/dL [facility] Work Phone: [phone] Platelets 259 10*3/mm3 Invalid Interpretation Code [facility] Work Phone: [phone] Platelets #/vol (Bld) 259 10*3/mm3 [facility] Work Phone: [phone] Potassium 4.0 mmol/L [facility] Work Phone: [phone] Sodium 138 mmol/L [facility] Work Phone: [phone] Thyroid stimulating hormone (TSH) 0.63 u[iU]/mL [facility] Work Phone: [phone] Urea nitrogen 16 mg/dL [facility] Work Phone: [phone] WBC #/vol (Bld) 10.9 10*3/uL [facility] Work Phone: [phone] WBC (Leukocytes) 10.9 10*3/uL Invalid Interpretation Code [facility] Work Phone: [phone] Clinical Lists Update: 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-05-2015 Albumin 3.8 g/dL [facility] Work Phone: [phone] Alkaline phosphatase (ALP) 76 U/L Invalid Interpretation Code [facility] Work Phone: [phone] ALP enzyme act/vol (Bld) 76 U/L [facility] Work Phone: [phone] Anion gap 9 mmol/L Invalid Interpretation Code [facility] Work Phone: [phone] Anion gap molar conc 9 mmol/L [facility] Work Phone: [phone] Bilirubin (total) 0.30 mg/dL [facility] Work Phone: [phone] Erythrocytes (RBC) 4.37 10*6/uL Invalid Interpretation Code [facility] Work Phone: [phone] Glucose 127 mg/dL High [facility] Work Phone: [phone] Glucose mass conc 127 mg/dL High [facility] Work Phone: [phone] MCH 31.4 pg Invalid Interpretation Code [facility] Work Phone: [phone] MCH Entitic mass (RBC) 31.4 pg [facility] Work Phone: [phone] MCHC 32.8 g/dL Invalid Interpretation Code [facility] Work Phone: [phone] MCHC mass conc (RBC) 32.8 g/dL [facility] Work Phone: [phone] MCV 95.7 fL Invalid Interpretation Code [facility] Work Phone: [phone] MCV Entitic volume (RBC) 95.7 fL [facility] Work Phone: [phone] RBC #/vol (Bld) 4.37 10*6/uL [facility] Work Phone: [phone] Office Visiton 02-09-2014 Tobacco smoking status IDIS Former smoker [facility] Work Phone: [phone] Tobacco use [facility] Former smoker Invalid Interpretation Code [facility] Work Phone: [phone] Replaced Document: [employer] E CG Observationson 02-09-2014 EKG QRS axis -10 deg [facility] Work Phone: [phone] electrocardiogram interpretation Sinus Rhythm WITHIN NORMAL LIMITS Invalid Interpretation Code [facility] Work Phone: [phone] GE use only - for [employer] import when terms are not otherwise specified 390 ms Invalid Interpretation Code [facility] Work Phone: [phone] Interpretation Sinus Rhythm WITHIN NORMAL LIMITS [facility] Work Phone: [phone] P [place] 43 deg [facility] Work Phone: [phone] P wave axis, electrocardiogram 43 deg Invalid Interpretation Code [facility] Work Phone: NC Interval 148 ms [facility] Work Phone: NC interval, electrocardiogram 148 ms Invalid Interpretation Code [facility] Work Phone: Pulse (Heart Rate) 68 /min Invalid Interpretation Code [facility] Work Phone: QRS axis, electrocardiogram -10 deg Invalid Interpretation Code [facility] Work Phone: QRS Duration 90 ms [facility] Work Phone: QRS duration, electrocardiogram 90 ms Invalid Interpretation Code [facility] Work Phone: QT Interval new path ms [facility] Work Phone: QT interval, electrocardiogram new path ms Invalid Interpretation Code [facility] Work Phone: QTc Álvarez 390 ms [facility] Work Phone: T [place] 18 deg [facility] Work Phone: T wave axis, electrocardiogram 18 deg Invalid Interpretation Code [facility] Work Phone: [phone] Lab Reporton 12-27-2012 Cholesterol 336 mg/dL [facility] Work Phone: [phone] Cholesterol to HDL Ratio 4.6 {ratio} [facility] Work Phone: HDL Cholesterol 73 mg/dL [facility] Work Phone: LDL Cholesterol 234 mg/dL [facility] Work Phone: Triglyceride 141 mg/dL [facility] Work Phone: Clinical Lists Update: 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 Corky Mensah MD Work Phone: [facility] 12-09-2024 12:59-0400 Body mass index (BMI) [Ratio] 30.1 kg/m2 Dr. Corky Mensah MD Work Phone: [facility] 12-09-2024 12:59-0400 Body temperature 97.8 [degF] Dr. Corky Mensah MD Work Phone: [facility] 12-09-2024 12:59-0400 Body weight 65.[address] Corky Mensah MD Work Phone: [facility] 12-09-2024 12:59-0400 Diastolic blood pressure 84 mm[Hg] Dr. Corky Mensah MD Work Phone: [facility] 12-09-2024 12:59-0400 Heart rate 91 /min Dr. Corky Mensah MD Work Phone: [facility] 12-09-2024 12:59-0400 Respiratory rate 18 /min Dr. Corky Mensah MD Work Phone: [facility] 12-09-2024 12:59-0400 SaO2% (BldA) [Mass fraction] 95 % Dr. Corky Mensah MD Work Phone: [facility] 12-09-2024 12:59-0400 Systolic blood pressure 142 mm[Hg] Dr. Corky Mensah MD Work Phone: [facility] 06-08-2024 13:56-0400 Body height 147.[address] Corky Mensah MD Work Phone: [facility] 06-08-2024 13:56-0400 Body mass index (BMI) [Ratio] 31.5 kg/m2 Dr. Corky Mensah MD Work Phone: [facility] 06-08-2024 13:56-0400 Body temperature 97.4 [degF] Dr. Corky Mensah MD Work Phone: [facility] 06-08-2024 13:56-0400 Body weight 68.[address] Corky Mensah MD Work Phone: [facility] 06-08-2024 13:56-0400 Diastolic blood pressure 80 mm[Hg] Dr. Corky Mensah MD Work Phone: [facility] 06-08-2024 13:56-0400 Heart rate 71 /min Dr. Corky Mensah MD Work Phone: [facility] 06-08-2024 13:56-0400 Respiratory rate 18 /min Dr. Corky Mensah MD Work Phone: [facility] 06-08-2024 13:56-0400 SaO2% (BldA) [Mass fraction] 95 % Dr. Corky Menash MD Work Phone: [facility] 06-08-2024 13:56-0400 Systolic blood pressure 130 mm[Hg] Dr. Corky Mensah MD Work Phone: [facility] 07-24-2023 09:47-0400 Body height 147.[address] Corky Mensah Work Phone: [facility] 07-24-2023 09:47-0400 Body mass index (BMI) [Ratio] 31 kg/m2 Dr. Corky Mensah Work Phone: [facility] 07-24-2023 09:47-0400 Body temperature 97 [degF] Dr. Corky Mensah Work Phone: [facility] 07-24-2023 09:47-0400 Body weight 67.[address] Corky Mensah Work Phone: [facility] 07-24-2023 09:47-0400 Diastolic blood pressure 60 mm[Hg] Dr. Corky Mensah Work Phone: [facility] 07-24-2023 09:47-0400 Heart rate 78 /min Dr. Corky Mensah Work Phone: [facility] 07-24-2023 09:47-0400 Respiratory rate 16 /min Dr. Corky Mensah Work Phone: [facility] 07-24-2023 09:47-0400 SaO2% (BldA) [Mass fraction] 96 % Dr. Corky Mensah Work Phone: [facility] 07-24-2023 09:47-0400 Systolic blood pressure 116 mm[Hg] Dr. Corky Mensah Work Phone: [facility] 06-08-2023 13:20-0400 Body height 147.[address] Theo Watters Work Phone: [facility] 06-08-2023 13:20-0400 Body mass index (BMI) [Ratio] 30.7 kg/m2 Dr. Theo Watters Work Phone: [facility] 06-08-2023 13:20-0400 Body temperature 98.2 [degF] Dr. Theo Watters Work Phone: [facility] 06-08-2023 13:20-0400 Body weight 66.[address] Theo Watters Work Phone: [facility] 06-08-2023 13:20-0400 Diastolic blood pressure 76 mm[Hg] Dr. Theo Watters Work Phone: [facility] 06-08-2023 13:20-0400 Heart rate 70 /min Dr. Theo Watters Work Phone: [facility] 06-08-2023 13:20-0400 Respiratory rate 16 /min Dr. Theo Watters Work Phone: [facility] 06-08-2023 13:20-0400 SaO2% (BldA) [Mass fraction] 97 % Dr. Theo Watters Work Phone: [facility] 06-08-2023 13:20-0400 Systolic blood pressure 138 mm[Hg] Dr. Theo Watters Work Phone: [facility] 04-24-2023 09:10-0500 Body mass index (BMI) [Ratio] 29.2 kg/m2 Dr. Theo Watters Work Phone: [facility] 04-24-2023 09:10-0500 Body temperature 97.1 [degF] Dr. Theo Watters Work Phone: [facility] 04-24-2023 09:10-0500 Body weight 63.[address] Theo Watters Work Phone: [facility] 04-24-2023 09:10-0500 Diastolic blood pressure 62 mm[Hg] Dr. Theo Watters Work Phone: [facility] 04-24-2023 09:10-0500 Heart rate 77 /min Dr. Theo Watters Work Phone: [facility] 04-24-2023 09:10-0500 Respiratory rate 16 /min Dr. Theo Watters Work Phone: [facility] 04-24-2023 09:10-0500 SaO2% (BldA) [Mass fraction] 95 % Dr. Theo Watters Work Phone: [facility] 04-24-2023 09:10-0500 Systolic blood pressure 116 mm[Hg] Dr. Theo Watters Work Phone: [facility] 04-22-2023 14:43-0500 Body temperature 98 [degF] Dr. Theo Watters Work Phone: [facility] 04-22-2023 14:43-0500 Diastolic blood pressure 61 mm[Hg] Dr. Theo Watters Work Phone: [facility] 04-22-2023 14:43-0500 Heart rate 89 /min Dr. Theo Watters Work Phone: [facility] 04-22-2023 14:43-0500 Respiratory rate 16 /min Dr. Theo Watters Work Phone: [facility] 04-22-2023 14:43-0500 SaO2% (BldA) [Mass fraction] 91 % Dr. Theo Watters Work Phone: [facility] 04-22-2023 14:43-0500 Systolic blood pressure 121 mm[Hg] Dr. Theo Watters Work Phone: [facility] 04-22-2023 08:00-0500 Inhaled oxygen flow rate 1 L/min Dr. Theo Watters Work Phone: [facility] 04-21-2023 09:52-0500 Body height 147.[address] Theo Watters Work Phone: 8(181)809-462969 [place] [address] 04-21-2023 09:52-0500 Body weight 65.[address] Theo Watters Work Phone: 5(402)699-913769 [place] [address] 04-21-2023 01:14-0500 Body mass index (BMI) [Ratio] 30.3 kg/m2 Dr. Theo Watters Work Phone: [facility] 04-21-2023 00:00-0500 Body temperature 98.6 [degF] Dr. Theo Watters Work Phone: 8(204)488-495969 [place] [address] 04-21-2023 00:00-0500 Diastolic blood pressure 79 mm[Hg] Dr. Theo Watters Work Phone: [facility] 04-21-2023 00:00-0500 Heart rate 75 /min Dr. Theo Watters Work Phone: [facility] 04-21-2023 00:00-0500 Inhaled oxygen flow rate 2 L/min Dr. Theo Watters Work Phone: [facility] 04-21-2023 00:00-0500 Respiratory rate 18 /min Dr. Theo Watters Work Phone: [facility] 04-21-2023 00:00-0500 SaO2% (BldA) [Mass fraction] 95 % Dr. Theo Watters Work Phone: 8(314)783-621269 [place] [address] 04-21-2023 00:00-0500 Systolic blood pressure 134 mm[Hg] Dr. Theo Watters Work Phone: 1(098)060-099069 [place] [address] 04-20-2023 20:17-0500 Body height 147.[address] Theo Watters Work Phone: 5(166)911-614969 [place] [address] 04-20-2023 20:17-0500 Body mass index (BMI) [Ratio] 31.1 kg/m2 Dr. Theo Watters Work Phone: 4(134)568-647969 [place] [address] 04-20-2023 20:17-0500 Body weight 67.[address] Theo Watters Work Phone: 6(830)306-905371 [place] [address] 04-16-2023 13:54-0500 Body mass index (BMI) [Ratio] 30.1 kg/m2 Dr. Theo Watters Work Phone: 2(265)569-520771 [place] [address] 04-16-2023 13:54-0500 Body temperature 98.7 [degF] Dr. Theo Watters Work Phone: 9(176)571-194571 [place] [address] 04-16-2023 13:54-0500 Body weight 65.[address] Theo Watters Work Phone: 4(053)265-271671 [place] [address] 04-16-2023 13:54-0500 Diastolic blood pressure 82 mm[Hg] Dr. Theo Watters Work Phone: 1(853)960-088671 [place] [address] 04-16-2023 13:54-0500 Heart rate 70 /min Dr. Theo Watters Work Phone: 9(840)325-905469 [place] [address] 04-16-2023 13:54-0500 Respiratory rate 18 /min Dr. Theo Watters Work Phone: 1(896)052-987669 [place] [address] 04-16-2023 13:54-0500 SaO2% (BldA) [Mass fraction] 96 % Dr. Theo Watters Work Phone: 5(267)023-544569 [place] [address] 04-16-2023 13:54-0500 Systolic blood pressure 144 mm[Hg] Dr. Theo Watters Work Phone: 8(425)951-022769 [place] [address] 04-07-2023 12:07-0500 Body mass index (BMI) [Ratio] 29.9 kg/m2 Dr. Theo Watters Work Phone: 2(989)744-279269 [place] [address] 04-07-2023 12:07-0500 Body temperature 98.2 [degF] Dr. Theo Watters Work Phone: 2(039)810-157269 [place] [address] 04-07-2023 12:07-0500 Body weight 64.[address] Theo Watters Work Phone: 7(697)500-332969 [place] [address] 04-07-2023 12:07-0500 Diastolic blood pressure 74 mm[Hg] Dr. Theo Watters Work Phone: 5(209)213-235771 [place] [address] 04-07-2023 12:07-0500 Heart rate 88 /min Dr. Theo Watters Work Phone: 0(589)189-321271 [place] [address] 04-07-2023 12:07-0500 Respiratory rate 12 /min Dr. Theo Watters Work Phone: 0(607)484-703071 [place] [address] 04-07-2023 12:07-0500 SaO2% (BldA) [Mass fraction] 95 % Dr. Theo Watters Work Phone: 4(338)496-068171 [place] [address] 04-07-2023 12:07-0500 Systolic blood pressure 108 mm[Hg] Dr. Theo Watters Work Phone: 7(991)878-150171 [place] [address] 03-20-2023 13:47-0500 Body mass index (BMI) [Ratio] 29.9 kg/m2 Dr. Theo Watters Work Phone: 9(994)234-286571 [place] [address] 03-20-2023 13:47-0500 Body temperature 98.4 [degF] Dr. Theo Watters Work Phone: 4(948)473-324771 [place] [address] 03-20-2023 13:47-0500 Body weight 64.[address] Theo Watters Work Phone: 5(732)228-142771 [place] [address] 03-20-2023 13:47-0500 Diastolic blood pressure 68 mm[Hg] Dr. Theo Watters Work Phone: 9(914)868-266271 [place] [address] 03-20-2023 13:47-0500 Heart rate 96 /min Dr. Theo Watters Work Phone: [facility] 03-20-2023 13:47-0500 Respiratory rate 16 /min Dr. Theo Watters Work Phone: [facility] 03-20-2023 13:47-0500 SaO2% (BldA) [Mass fraction] 93 % Dr. Theo Watters Work Phone: [facility] 03-20-2023 13:47-0500 Systolic blood pressure 131 mm[Hg] Dr. Theo Watters Work Phone: [facility] 03-06-2023 12:37-0500 Body height 147.[address] Theo Watters Work Phone: 6(047)612-941669 [place] [address] 03-06-2023 12:37-0500 Body mass index (BMI) [Ratio] 29.2 kg/m2 Dr. Theo Watters Work Phone: 7(679)352-416969 [place] [address] 03-06-2023 12:37-0500 Body temperature 97.6 [degF] Dr. Theo Watters Work Phone: [facility] 03-06-2023 12:37-0500 Body weight 63.[address] Theo Watters Work Phone: [facility] 03-06-2023 12:37-0500 Diastolic blood pressure 80 mm[Hg] Dr. Theo Watters Work Phone: [facility] 03-06-2023 12:37-0500 Heart rate 82 /min Dr. Theo Watters Work Phone: [facility] 03-06-2023 12:37-0500 Respiratory rate 16 /min Dr. Theo Watters Work Phone: [facility] 03-06-2023 12:37-0500 SaO2% (BldA) [Mass fraction] 96 % Dr. Theo Watters Work Phone: [facility] 03-06-2023 12:37-0500 Systolic blood pressure 124 mm[Hg] Dr. Theo Watters Work Phone: [facility] 02-27-2022 03:42-0500 Diastolic blood pressure 76 mm[Hg] [facility] 02-27-2022 03:42-0500 Heart rate 92 /min [facility] 02-27-2022 03:42-0500 Respiratory rate 20 /min [facility] 02-27-2022 03:42-0500 SaO2% (BldA) [Mass fraction] 95 % [facility] 02-27-2022 03:42-0500 Systolic blood pressure 128 mm[Hg] [facility] 02-26-2022 20:55-0500 Body height 147.32 cm [facility] 02-26-2022 20:55-0500 Body mass index (BMI) [Ratio] 30.5 kg/m2 [facility] 02-26-2022 20:55-0500 Body temperature 98.3 [degF] [facility] 02-26-2022 20:55-0500 Body weight 66.22 kg [facility] 08-24-2021 02:42-0400 Diastolic blood pressure 51 mm[Hg] [facility] Work Phone: 08-24-2021 02:42-0400 Heart rate 80 /min [facility] Work Phone: 08-24-2021 02:42-0400 Respiratory rate 16 /min [facility] Work Phone: 08-24-2021 02:42-0400 SaO2% (BldA) [Mass fraction] 90 % [facility] Work Phone: 08-24-2021 02:42-0400 Systolic blood pressure 143 mm[Hg] [facility] Work Phone: 08-23-2021 23:09-0400 Body height 144.78 cm [facility] Work Phone: 08-23-2021 23:09-0400 Body mass index (BMI) [Ratio] 31.4 kg/m2 [facility] Work Phone: 08-23-2021 23:09-0400 Body temperature 98.9 [degF] [facility] Work Phone: 08-23-2021 23:09-0400 Body weight 65.77 kg [facility] Work Phone: 09-01-2016 10:18-0400 BMI (Body Mass Index) 26.95 kg/m2 Stacie Augustin [facility] Work Phone: 09-01-2016 10:18-0400 BP Diastolic 80 mm[Hg] [facility]ie Santy [facility] Work Phone: 09-01-2016 10:18-0400 BP Systolic 140 mm[Hg] Stacie Santy [facility] Work Phone: 09-01-2016 10:18-0400 Height 156.21 cm Stac[facility] Santy [facility] Work Phone: 09-01-2016 10:18-0400 Pulse (Heart Rate) 64 /min Stacie Santy [facility] Work Phone: 09-01-2016 10:18-0400 Respiratory Rate 16 /min Stacie Santy [facility] Work Phone: 09-01-2016 10:18-0400 Weight 65.77 kg [facility] Work Phone: 09-03-2015 10:54-0400 BMI (Body Mass Index) 25.28 kg/m2 Bianca Jacob RN [facility] Work Phone: 09-03-2015 10:54-0400 BP Diastolic 64 mm[Hg] Bianca Jacob RN [facility] Work Phone: 09-03-2015 10:54-0400 BP Systolic 136 mm[Hg] Bianca Jacob RN [facility] Group Work Phone: 09-03-2015 10:54-0400 BSA (Body Surface Area) 1.61 m2 Bianca Jacob RN [facility] Work Phone: 09-03-2015 10:54-0400 Pulse (Heart Rate) 60 /min Bianca Augustin [facility] Work Phone: 09-03-2015 10:54-0400 Respiratory Rate 16 /min Bianca Augustin [facility] Work Phone: 09-03-2015 10:54-0400 Weight 61.69 kg Bianca Jacob RN [facility] Work Phone: 02-09-2014 15:00-0500 Heart rate 68 /min Evin Dobbins [facility] Work Phone: 05-29-2011 12:06-0500 Body Temperature 97.6 [degF] [facility]ca Augustin [facility] Work Phone: 03-05-2011 16:11-0500 Height 156.21 cm Bianca [facility] Work Phone: Encounters Encounter Date Encounter Type Care Provider Facility Start: 12-09-2024 End: 12-09-[address] Corky Mensah MD Work Phone: -[facility] Start: 12-09-2024 End: 12-09-[address] Corky Mensah MD -[facility] Start: 12-09-2024 End: 12-09-[address] Corky Mensah MD -[facility] Work Phone: Start: 12-09-2024 End: 12-09-[address] Corky Mensah MD Work Phone: -[facility] Start: 12-09-2024 End: 12-09-2024 ambulatory Corky Mensah Facility:[facility] Start: 06-08-2024 End: 06-08-[address] Corky Mensah MD -[facility] Work Phone: Start: 06-08-2024 End: 06-08-[address] Corky Mensah MD Work Phone: [facility] Work Phone: Start: 06-08-2024 End: 06-08-[address] [facility] Facility:[facility] Start: 02-10-2024 End: 03-09-2024 ambulatory ROBERTA EDOUARD [facility] Start: 01-28-2024 End: 01-28-2024 ambulatory [facility] Facility:[facility] Start: 01-26-2024 End: 01-26-2024 ambulatory [facility] Facility:[facility] Start: 01-21-2024 End: 01-21-2024 ambulatory [facility] Facility:[facility] Start: 07-24-2023 End: 07-24-[address] Corky Mensah Work Phone: [facility] Work Phone: Start: 07-24-2023 End: 07-24-[address] Corky Mensah Work Phone: [facility] Work Phone: Start: 06-08-2023 End: 06-08-[address] Theo Watters Work Phone: [facility] Work Phone: Start: 06-08-2023 End: 06-08-[address] Theo Watters Work Phone: [facility] Internal [facility] Work Phone: Start: 04-24-2023 End: 04-24-[address] Theo Watters Work Phone: [facility] Internal Medicine Work Phone: Start: 04-22-2023 Non-patient / Non-visit Dr. Theo Watters Work Phone: [facility] Work Phone: Start: 04-22-2023 Non-patient / Non-visit Dr. Theo Watters Work Phone: [facility] Start: 04-21-2023 Non-patient / Non-visit Dr. Theo Watters Work Phone: [facility] Work Phone: Start: 04-21-2023 End: 04-22-2023 Evaluation and management of inpatient Dr. Theo Watters Work Phone: [facility] Work Phone: Start: 04-21-2023 Non-patient / Non-visit Dr. Theo Watters Work Phone: [facility] Work Phone: Start: 04-16-2023 End: 04-16-[address] Theo Watters Work Phone: [facility] Internal Medicine Work Phone: Start: 04-07-2023 End: 04-07-[address] Theo Watters Work Phone: [facility] Work Phone: Start: 03-20-2023 End: 03-20-[address] Theo Watters Work Phone: [facility] Endocrinology Work Phone: Start: 03-06-2023 End: 03-06-[address] Theo Watters Work Phone: [facility] Work Phone: Start: 03-06-2023 End: 03-06-[address] Theo Watters Work Phone: [facility] Internal Medicine Work Phone: Start: 02-23-2023 End: 02-23-2023 ambulatory [facility] Work Phone: Start: 02-23-2023 End: 02-23-2023 [facility] Start: 09-05-2022 Patient encounter status [facility] Start: 03-27-2022 End: 03-27-2022 ambulatory [facility] Work Phone: Start: 03-27-2022 End: 03-27-2022 [facility] Start: 02-27-2022 End: 03-05-2022 Evaluation and management of inpatient [facility] Start: 02-26-2022 End: 02-27-2022 Emergency department patient visit [facility] Start: 10-31-2021 End: 10-31-2021 [facility] Start: 08-23-2021 End: 08-24-2021 Emergency department patient visit [facility] Start: 07-31-2021 End: 07-31-2021 [facility] Start: 04-15-2021 End: 04-15-2021 [facility] Start: 02-12-2017 End: 02-12-2017 Emergency department patient visit [facility] Procedures Date Procedure Procedure Detail Performing Clinician Start: 12-09-2024 Urnls dip stick/tabl et reagent auto microscopy Dr. Corky Mensah MD Work Phone: Start: 07-24-[address] Arthur Mensah Work Phone: Start: 04-20-2023 CT of chest without contrast Dr. Theo Watters Work Phone: Start: 04-20-2023 CT of head without contrast Dr. Theo Watters Work Phone: Start: 04-20-2023 Plain chest X-ray Dr. Jeremy Watters Work Phone: Start: 04-20-2023 Bacteria identified in Blood by Culture Dr. Theo Watters Work Phone: Start: 04-20-2023 Legionella pneumophi la antigen assay Dr. Theo Watters Work Phone: Start: 04-20-[address] Theo Watters Work Phone: Start: 04-20-2023 Streptococcus pneumo niae Antigen (M Dr. Theo Watters Work Phone: Start: 03-06-2023 Plain x-ray of pelvi s and lower extremity Dr. Theo Watters Work Phone: Start: 02-27-2022 MRI of thoracic spin e with contrast Start: 08-24-2021 CT of abdomen and pe lvis without contrast Start: 09-01-2016 End: 09-01-2016 Follow Up Appt [...] 03-05-2012 Gastroenterology Referral Jose E cash MD Urine culture Viral antigen assay Plan of Treatment Date Care Activity Detail Author Start: 04-24-2023 Patient referral [facility] Work Phone: Start: 04-22-2023 Patient discharge [facility] Start: 04-22-2023 Referral to service [facility] Start: 04-21-2023 Following clinical pathway protocol [facility] Start: 04-21-2023 Assessment of risk of venous thromboembolism [facility] Start: 04-21-2023 Catheterization of vein [facility] Start: 04-21-2023 Elevation of head of bed [facility] Start: 04-21-2023 Incentive spirometry [facility] Start: 04-21-2023 Insertion of catheter into peripheral vein [facility] Start: 04-21-2023 Oxygen therapy [facility] Start: 04-21-2023 Patient education [facility] Start: 04-21-2023 End: 04-21-2023 Patient referral to dietitian [facility] Start: 04-21-2023 Physiotherapy of chest [facility] Start: 04-21-2023 Providing care according to standard [facility] Start: 04-21-2023 Provision of activity privileges [facility] Start: 04-21-2023 Referral to occupational therapist [facility] Start: 04-21-2023 Referral to service [facility] Start: 04-21-2023 Bacteria identified in Sputum by Culture [facility] Start: 04-21-2023 Legionella pneumophila Ag [Presence] in Urine [facility] Start: 04-21-2023 Streptococcus pneumoniae antigen assay [facility] Start: 04-21-2023 End: 04-21-2023 [facility] Start: 04-21-2023 Verification routine [facility] Start: 04-21-2023 Admission procedure [facility] Start: 04-20-2023 Blood culture [facility] Start: 04-20-2023 Hospital admission, emergency, from emergency room, medical nature [facility] Start: 04-20-2023 Bacteria identified in Blood by Culture Blood Culture [facility] Start: 04-20-2023 Respiratory Panel (PCR) Respiratory Panel (PCR) [facility] Start: 02-23-2023 Procedure [facility] Start: 10-31-2021 Procedure [facility] Work Phone: Start: 08-31-2017 End: 08-31-2017 Appointment Appointment [facility] Work Phone: Start: 09-01-2016 End: 09-01-2016 Appointment Appointment [facility] Work Phone: Start: 09-01-2016 End: 09-01-2016 Follow Up Appt 1 year Follow Up Appt 1 year [facility] Work Phone: Start: 09-01-2016 End: 09-01-2016 PFM PFM [facility] Work Phone: Start: 09-03-2015 End: 09-03-2015 Follow Up Appt 1 year Follow Up Appt 1 year [facility] Work Phone: Start: 09-03-2015 End: 09-03-2015 PFM PFM [facility] Work Phone: Start: 02-09-2014 End: 02-09-2014 Follow Up Appt 1 year Follow Up Appt 1 year [facility] Work Phone: Start: 02-09-2014 End: 02-09-2014 Follow Up Appt Other Follow Up Appt Other [facility] Work Phone: Start: 02-09-2014 End: 02-09-2014 PFM PFM [facility] Work Phone: Start: 01-26-2013 End: 01-26-2013 Follow Up Appt 1 year Follow Up Appt 1 year [facility] Work Phone: Start: 01-26-2013 End: 01-26-2013 Follow Up Appt Other Follow Up Appt Other [facility] Work Phone: Start: 01-26-2013 End: 01-26-2013 PFM PFM [facility] Work Phone: Start: 03-05-2012 End: 03-05-2012 Follow Up Appt 1 year Follow Up Appt 1 year [facility] Work Phone: Start: 09-01-2011 End: 09-01-2011 Follow Up Appt 6 months Follow Up Appt 6 months [facility] Work Phone: Start: 03-05-2011 End: 03-05-2011 Follow Up Appt 6 months Follow Up Appt 6 months [facility] Work Phone: Start: 03-05-2011 End: 03-06-2011 Gastroenterology Referral Gastroenterology Referral James Heredia, [facility], [address] [place], [address] [facility] Work Phone: Lactic acid measurement [facility] Patient Education ED Cystitis Female Adul t [facility] Work Phone: Patient referral [facility] Work Phone: Procedure [facility] Work Phone: Respiratory pathogen s DNA and RNA panel - Respiratory specimen by TOMAS with probe detection [facility] Immunizations Immunization Date Immunization Notes Care Provider Fa ciliravinder 03-06-2023 influenza, injectabl e, quadrivalent, preservative free Dr. Theo Watters Work Phone: [facility] 12-26-2021 influenza, injectabl e, quadrivalent, preservative free Dr. Corky Mensah MD Work Phone: [facility] 12-14-2020 Influenza High-Dose Quadrivalent Dr. Corky Mensah MD Work Phone: [facility] 05-23-2020 Covid (Moderna) [facility] 04-25-2020 Covid (Moderna) [facility] 11-20-2019 Influenza virus vaccine [facility] 11-03-2019 influenza, injectabl e, quadrivalent, preservative free Dr. Corky Mensah MD Work Phone: [facility] 07-18-[address] Corky Mensah MD Work Phone: [facility] 01-03-[address] Corky Mensah MD Work Phone: [facility] 12-13-2018 influenza, injectabl e, quadrivalent, preservative free Dr. Corky Mensah MD Work Phone: [facility] 01-08-2017 influenza, high dose seasonal, preservative-free Dr. Cokry Mensah MD Work Phone: [facility] 01-13-2007 influenza, injectabl e, quadrivalent, preservative free Dr. Corky Mensah MD Work Phone: [facility] Payers Date Payer Category Payer Self-pay [id number] 2014 [facility] [id number] 2014 Unknown SELF PAY INSURANCE [id number] 2009 Medicare [id number] 1945 Unknown [id number] Unknown [id number] Unknown [id number] Unknown [id number] Unknown [id number] Unknown [id number] Unknown [id number] Unknown [id number] Unknown [id number] Social History Date Type Detail Facility Start: 12-22-2020 End: 06-08-2023 Tobacco smoking status IDIS Unknown if ever smoked [facility] Start: 07-18-2020 None [facility] Start: 07-18-2020 Homeless [facility] Start: 08-04-2020 Non-smoker [facility] Start: 1945 Sex Assigned At Female [facility] Start: 08-19-2023 Tobacco smoking stat [facility] Ex-smoker (finding) [facility] Start: 06-15-2024 Sex Female (finding) [facility] Sex Female [facility] Medical Equipment Procedure Code Equipment Code Equipment Origin al Text Equipment Identifier Dates Kyphoplasty RICHARD KYPHO AUTOPLEX FDA Start: 10-05-2020 Kyphoplasty RICHARD KYPHO AUTOPLEX FDA Start: 10-05-2020 Kyphoplasty RICHARD KYPHO AUTOPLEX FDA Start: 10-05-2020 Kyphoplasty RICHARD KYPHO AUTOPLEX FDA Start: 10-05-2020 Kyphoplasty RICHARD KYPHO AUTOPLEX FDA Start: 10-05-2020 Kyphoplasty RICHARD KYPHO AUTOPLEX FDA Start: 10-05-2020 Kyphoplasty RICHARD KYPHO AUTOPLEX FDA Start: 10-05-2020 Kyphoplasty RICHARD KYPHO AUTOPLEX FDA Start: 10-05-2020 Kyphoplasty RICHARD KYPHO AUTOPLEX FDA Start: 10-05-2020 Kyphoplasty RICHARD KYPHO AUTOPLEX FDA Start: 10-05-2020 Kyphoplasty RICHARD KYPHO AUTOPLEX FDA Start: 10-05-2020 Kyphoplasty RICHARD KYPHO AUTOPLEX FDA Start: 10-05-2020 Kyphoplasty RICHARD KYPHO AUTOPLEX FDA Start: 10-05-2020 Goals Date Patient Goal Desired Activity /State Functional Status Date Assessment Result Facility 04-22-2023 Functional status Activity Abili ty With Assist of 2 [facility] Work Phone: Mental Status Date Assessment Result Facility 04-22-2023 Cognitive function Voice/Name [facility] Work Phone: 04-20-2023 Cognitive function Voice/Name [facility] Work Phone: Clinical Notes 02-27-2022 to 12-09-2024 Note Date & Type Note Facility 12-09-2024 Evaluation note Diagnosis Onset Date Resolution Hematuria acute November 12:51pm History of hip fracture acute S eptember 2024 12:51pm Borderline diabetes chronic Septe mb2024 12:51pm Depression chronic November 12:51pm Osteoporosis chronic December 092024 12:51pm [facility] Work Phone: 1(752) 911-547909-19-2025 [facility] [address] [place], [place] [address] OFFICE VISIT Date of Service: 12/09/24 MR#: [id number] Acct: [id number] Name: CARL LOUIS Rep #: [id number] Provider: Dr. Meagan Mensah MD Age/Sex: 79/F Location: [facility] Status: Signed Intake Vital Signs 06/08/24 13:56 12/09/24 12:59 Height 4 ft 10 in 4 ft 10 in Weight: 144 lb BMI 30.1 BP 142/84 H Blood Pressure Location Lt brachial Position Sitting Respiration 18 Pulse 91 Pulse Source Monitor Temp 97.8 F Temp Source Temporal Pulse Oximetry (%) 95 Oxygen Delivery Method room air Intake Visit Reasons: 6 m fu Chief Complaint: 6 M FU Is patient in pain?: No Allergies castor oil Allergy (Verified 12/09/24 12:59) Unknown frovatriptan succinate (From Frova) Allergy (Verified 12/09/24 12:59) Rash Iodinated Contrast Media Allergy (Verified 12/09/24 12:59) Vomiting sumatriptan (From Imitrex) Allergy (Verified 12/09/24 12:59) Rash sumatriptan succinate (From Imitrex) Allergy (Verified 12/09/24 12:59) Rash vitamin E (d-alpha tocopherol) Allergy (Verified 12/09/24 12:59) Chest tightness ezetimibe (From Zetia) Adverse Reaction (Severe, Verified 12/09/24 12:59) Severe GI upset/stomach pain guaifenesin (From Mucinex) Adverse Reaction (Intermediate, Verified 12/09/24 12:59) Other levofloxacin (From Levaquin) Adverse Reaction (Intermediate, Verified 12/09/24 12:59) pain fluticasone (From Flonase) Adverse Reaction (Verified 12/09/24 12:59) Nausea Medications ?Medication ?Instructions ?Recorded ?Confirmed ?Type vitamin E (dl, acetate) 180 mg 400 units PO DAILY Supp lement 10/13/13 12/09/24 History (400 unit) capsule vitamin B complex 1 tab PO DAILY supplement 12/09/24 History cholecalciferol (vitamin D3) 10 5,000 unit PO DAILY Evans pplement 09/05/22 12/09/24 History mcg (400 unit) capsule ferrous sulfate-vitamin C 39 mg-75 1 tab PO DAILY 08/2112/09/24 History mg tablet hydrocodone-acetaminophen 5-325mg 1 tab PO BID PRN sunni n 09/05/22 12/09/24 Hi story 5mg-325mg ketoconazole 2 % shampoo 1 applic topical 2XW #120 mL 03/06/23 12/09/24 Rx pregabalin 50 mg capsule (Lyrica) 50 mg PO Q8H Burning in left leg 03/20/23 12/09/24 History calcium carbonate (Calcium 600) 600 mg PO DAILY SUPPLE MENT 04/21/23 12/09/24 History pantoprazole 40 mg tablet,delayed 40 mg PO QDAY #90 ta bs 01/29/24 12/09/24 Rx release zoledronic acid 5 mg/100 mL in 1 ea IV .Yearly #100 mL 04/04/24 12/09/24 Rx mannitol 5 %-water intravenous piggybck (Reclast) Handicap Placard #1 ea 06/01/24 12/09/24 Rx apixaban 5 mg tablet (Eliquis) 5 mg PO BID #180 tabs 0 09/29/24 12/09/24 Rx mirtazapine 7.5 mg tablet 7.5 mg PO QHS Sleep #90 tabs 10/19/24 12/09/24 Rx albuterol sulfate 90 mcg/actuation 2 puff inhalation Q 6H PRN 12/09/24 12/09/24 Rx aerosol inhaler (Ventolin HFA) shortness of breath or wheezing #8.5 grams Have you fallen in the past year?: Yes (x1 hip fracture) Nurse's Note: pt reports that last week she noted blood in the urine,had c/o burning and urgency reports that sheincreased fluids and her symptoms seem to have resolved pt reports that she had right hip surgery post fall in [place], pt requesting ortho referral [facility] Medical History (Updated 12/09/24 @ 16:[address] Corky Mensah MD) Hematuria History of hip fracture Dermatitis Hypertension Nocturnal hypoxemia Diplopia Headache Acute hypoxemic respiratory failure Leukocytosis Generalized weakness Fever of unknown origin Leukocytosis Generalized weakness Hypoxia Fever Debility COVID-19 URI (upper respiratory infection) Flu vaccine need Seborrheic dermatitis GERD (gastroesophageal reflux disease) Left hip pain Health care maintenance Migraine Chronic bronchitis Bone fracture History of back problems Anemia Seasonal allergies Wears dentures Wears hearing aid Wears glasses Post-menopausal Anxiety Arthritis Bladder disease Pulmonary embolism High cholesterol Easy bruising Excessive bleeding History of hiatal hernia Gastric reflux Former smoker History of stress test History of irregular heartbeat Fibromyalgia Nodular goiter History of DVT (deep vein thrombosis) Cardiac murmur Factor 5 Leiden mutation, heterozygous HLD (hyperlipidemia) DM2 (diabetes mellitus, type 2) Depression Surgical History Hx of kyphoplasty H/O: hysterectomy Hx of appendectomy Family History Father CAD (coronary artery disease) Myocardial infarction Bleeding disorder History of blood clots CVA (cerebral vascular accident) Mother Colon cancer Diabetes High cholesterol Cancer Skin Sister Psychiatric care High cholesterol Diabetes Colon cancer Brother Colon cancer High cholesterol Social History household members: none housing: house Smoking Status: Former smoker alcohol intake: never substance use type: does not use what type of physical activity do you participate in: none seatbelt use: always do you feel safe at home: Yes additional social history: , ambulates independently without an assistive device Female Reproductive History Menstrual Ab spontaneous: 1 HPI HPI Chief Complaint: 6 M FU Details: CARL LOUIS, is an 79-year-old female presenting for follow-up of her chronic conditions. Recent hip fracture. The incident occurred while the patient was visiting her daughter in [place],who is undergoing cancer treatment. The fall happened as the patient was stepping onto the porch causing her to fall backward into the house. The patient believes she fractured her hip and the top ofthe femur in the fall. Surgery for the hip fracture took place on September 27, and the patient experienced a delay in surgery due to being on Eliquis. Postsurgical stay was uneventful, discharged home in stable condition following which she started therapy and believes she had about 9 sessions in total. Recommendation was for follow-up imaging and continued physical therapy. About a week ago, noted blood in her urine. Similar episode happened years ago. She states that shestarted drinking more water with subsequent resolution. Noabdominal pain, chills or fever. At that time, had noted burning and some urgency as well. The patient has been actively managing her borderline diabetes, successfully reducing her A1c from 6.2 to 5.8, through dietary adjustments and exercise untilthe fall. The patient remains committed toher exercise regimen as taught duringtherapy. Other chronic conditions are stable. Attestation: Documentation on this patient encounter was supported using ambient scribe technology/ voice AI technology. The patient consented to recording for the purpose of documenting the encounter. Provider reviewed content of the generatednote prior to signature. ROS Const Constitutional: No body ache, chills, excessive sweating, fatigue, fever(s), frequent falls, headache(s), snoring, weight change, sleep problems, abnormal sleep pattern or change in appetite Eyes Eyes: No blurry vision, change in vision, vision loss, dry eyes, eye pain or Light sensitivity ENT ENT: No abnormal hearing, ear or mastoid pain, tinnitus, dizziness/vertigo, nasal congestion, headache(s), neck pain or sore throat Resp Respiratory: No cough, excessive phlegm production, hemoptysis, shortness of breath, snoring or wheezing Cardio Cardiology: No chest pain at rest, chest pain with exertion, excessive sweating,shortness of breath, dyspnea on exertion, lightheadedness, orthopnea or palpitations Gastro GI: No abdominal pain, change in bowel habits, constipation, cramping, diarrhea,nausea/dyspepsia orvomiting Genitourinary-Female: No burning urination, painful urination, urinary incontinence, urinary frequency, abnormal vaginal bleeding or pelvic pain Musc Musculoskeletal: Positive for joint pain and limited range of motion; No abnormal gait, back pain, neck pain, numbness or tingling Skin Skin: No dry skin, redness, lesions, itchy eyes, rash or wounds Neuro Neurology: No abnormal gait, abnormal hearing, frequent falls, headache(s), memory loss, numbness or tingling Psych Psychiatric: No abnormal sleep pattern, No anxiety, No change in appetite, No irritability, No memory loss and No Thoughts of harming yourself/Others Endo Endocrine: No cold intolerance, excessive sweating, fatigue, flushing, heat intolerance, increased thirst/drinking, increased hunger or weight change Aller/Imm Allergy/Immunologic: No itchy eyes, seasonal allergy symptoms, hives or wheezing Malik/Lymp Hematologic/Lymphatic: No easy bleeding, easy bruising, enlarged lymph nodes or other Exam Const General: cooperative Orientation: alert, awake and oriented x3 HENMT Head: normal to inspection, normocephalic and atraumatic Ears: hearing grossly normal bilaterally Eyes General: appearance normal, both eyes and all related structures Neck Neck: normal visual inspection, full ROM, no lymphadenopathy and supple Neck mass: No Thyroid: thyroid normal Resp Effort & Inspection: normal respiratory effort and able to speak in complete sentences Auscultation: Bilateral: Clear to Auscultation Cardio Rate: regular rate Rhythm: regular rhythm Heart Sounds: S1 normal and S2 normal GI Palpation: soft (Nontender, no palpable organomegaly) Neuro General: patient alert, patient awake, patient oriented x3, moves all extremities and CN's II-XI intact bilaterally Extrem General: no clubbing, cyanosis or edema Psych Appearance: grossly normal Mental Status: mental status grossly normal Mood: congruent mood Affect: normal affect Results POC A1C POC A1C 5.8 % Last Edit by Sara Johnston LPN on 12/09/24 13:16 Coding Level of Care Code Off vis,est,level 4 Diagnoses History of hip fracture Z87.81 Hematuria R31.9 Borderline diabetes R73.03 Depression F32.9 Age-related osteoporosis without current pathological fracture M81.0 Osteoporosis type: age-related Presence of current pathological fracture: without current pathological fracture Assessment and Plan Assessment and Plan (1) History of hip fracture: Status: Acute Plan: Status post surgery which was uneventful. Surgery was in [place]. Continue rehabilitation with a new referral for physical therapy to enhance gait and strength. Also referred to Ortho per patient request. (2) Hematuria: Status: Acute Plan: Resolved. No further concerns reported by patient. Currently on Eliquis. Repeat urinalysis ordered,will review however due to lona hematuria, she wouldbenefit from urology evaluation as well. Referral placed. (3) Borderline diabetes: Status: Chronic Plan: A1c is down from 6.2-5.8. Encouraged continuation of current lifestyle adjustments as they have been effective in lowering A1c. Follow-up at next visit. (4) Depression: Status: Chronic Plan: No concerns at this time. Continue mirtazapine. (5) Osteoporosis: Status: Chronic Qualifiers: Osteoporosis type: age-related Presence of current pathological fracture: without current pathological fracture Qualified Code(s): M81.0 - Age-related osteoporosis without current pathological fracture Plan: No recent pathological fracture. Continue Reclast, vitamin D and calcium supplements. This note was generated with [employer] dictation software. It may contain incorrectwords, spelling, and punctuation that were not noted in checking the note beforesigning. Orders: Orders POC A1C Today R73.03 - Prediabetes Comprehensive Metabolic Profil Today I10 - Essential (primary) hypertension CBC W/Diff, Automated Today E78.5 - Hyperlipidemia, unspecified Urinalysis, Complete Today N39.0 - Urinary tract infection, site not specified Referrals PT Referral Z87.81 - Personal history of (healed) traumatic fracture Orthopedics Z87.81 - Personal history of (healed) traumatic fracture Urology R31.9 - Hematuria, unspecified Medications: New albuterol sulfate 90 mcg/actuation (Ventolin HFA) 2 puffs inhalation Q6H PRN 8.5grams 2RF shortnessof breath or wheezing Discontinued albuterol sulfate Discontinued Reason: Discontinued by PCP/other physicians 2 puffs inhalationPRN Clinical Quality Measures Falls Risk Screening/Assistive Devices Have you fallen in the past year?: Yes (x1 hip fracture) 12/09/24 1643 johnny DIGGS> Date _ Corky Mensah MD Cosigner Signature: Date (if applicable) CC: ~ [facility]03-19-2025 Evaluation note* Diagnosis Onset Date Resolution Status Admit Date Borderline diabetes chronic June 08, 2024 1:48pm Depression chronic June 08 1:48pm Dermatitis chronic June 08 1:48pm GERD (gastroesophageal reflu x disease) chronic June 08, 2024 1:48pm Hypertension chronic June 08, 2024 1:48pm Osteoporosis chronic June 08, 2024 1:48pm [facility] Work Phone: 1(872) 831-114701-31-2024 Discharge summary Author Fransisco Barroso [facility] April 22, 2023 12:14pm Note Date/Time April 22, 2023 1 2:12pm [facility] Medical Records Department [address] [place] [address] Instructions for Home/Discharge Instructions 04/22/23 1211 MR#: [id number] Acct: [id number] Name: CARL LOUIS Rep #:[id number] : 1945 77 From: Fransisco Barroso DO PCP: Dr. Corky Mensah MD Status:A DM IN Discharge Instructions Diet Discharge Diet: No restrictions Activity Discharge Activity: Return to Normal Activity Weight Bearing Status: Full weight bearing Follow Up Care Test Results: Test results from this visit will be discussed in further detail at your follow- up appointment, if applicable. Discharge Plan Admission Admit Date/Time: 04/21/23 00:20 Primary Reason for Your Visit: hypoxia Attending Provider: Fransisco Barroso Primary Care Provider: Corky Mensah Consulting Providers: Mariella Harris Discharge Orders/Prescriptions Prescriptions: Continued cholecalciferol (vitamin D3) 10 mcg (400 unit) capsule 5,000 unit PO DAILY pregabalin [Lyrica] 50 mg capsule 50 mg PO Q8H furosemide 40 mg tablet 40 mg PO DAILY Patient Comments: HAS NOT BEEN TAKING FOR LAST FEW DAYS 04/20/23 potassium chloride 20 mEq tablet extended release 20 meq PO DAILY ferrous sulfate-vitamin C 39-75 mg tablet 1 tab PO DAILY hydrocodone-acetaminophen 5-325 mg tablet 1 tab PO BID PRN (Reason: pain) Patient Comments: TAKES DAILY Eliquis 5 mg tablet 5 mg PO BID Qty: 180 2RF mirtazapine 7.5 mg tablet 7.5 mg PO QHS Qty: 90 3RF ketoconazole 2 % shampoo 1 applic topical 2XW Qty: 120 3RF benzonatate 200 mg capsule 200 mg PO TID PRN (Reason: cough) Qty: 20 0RF guaifenesin [Mucinex] 600 mg tablet extended release 12hr 600 mg PO BID Qty: 60 1RF fluticasone propionate [Flonase Allergy Relief] 50 mcg/actuation spray,suspension 2 spray intranasal DAILY Qty: 16 1RF Rx Instructions: administer into each nostril vitamin E (dl, acetate) 400 UNITS capsule 400 units PO DAILY vitamin B complex 1 EACH tablet 1 tab PO DAILY pantoprazole [Protonix] [address] for susp in packet 40 mg PO DAILY albuterol sulfate 2 puff inhalation PRN (Reason: shortness of breath or wheezing) zoledronic [id number] [Reclast] 5 mg/100 mL piggyback IV .QYEAR calcium carbonate [Calcium 600] 600 mg calcium (1,500 mg) tablet 600 mg PO DAILY Prolia 60 mg/mL syringe 60 mg subcut [id number] Qty: 1 2RF Referrals / Follow Up: Corky Mensah MD [Primary Care Provider] - See Referral Note (In 2 to 3 weeks) Disposition Disposition (needs filled in before D/C Order can be placed): Home, Self Care 04/22/23 1214<Electronically signed by Fransisco Barroso DO>Fransisco Barroso DO CC: Dr. Corky Mensah MD; Dr. Mariella Harris DO ~ Signed [facility] Work Phone: 1(708) 847-449501-30-2024 Progress note Author Fransisco [facility] April 21, 2023 6:58pm Note Date/Time April 21, 2023 6 :55pm [facility] Medical Records Department [address] [place] [address] Progress Note - Hospitalist 04/21/23 1848 MR#: [id number] Acct: [id number] Name: CARL LOUIS Rep #:[id number] 6 : 1945 77 From: Fransisco Barroso DO PCP: Dr. Corky Mensah MD Status:A DM IN Location: ICU CVICU20 4-1 Reason for Visit Reason for Visit: Diagnoses Elevated white blood cell count, unspecified (04/21/23) Hypoxemia (04/21/23) Fever, unspecified (04/21/23) Weakness (04/21/23) Other malaise (04/21/23) Subjective Subjective Patient was seen and examined today, her white blood cell count this morning was11.8, she has been afebrile and she has no complaints of any sputum production, cough, or chills. I reviewed her medical record, I do not feel she needs continued IV antibiotics at this time because there is no evidence of pneumonia on her imaging studies. The exact etiology of the hypoxia is not known to me atthis time, I have elected to order an echocardiogram on the patient tomorrow. Patient was off oxygen for a time this morning but at the time of this dictationshe is on 2 L/min via nasal cannula. Patient denies any history of lung issues. Patient did state that approximately 2 weeks ago she had COVID-19, she was givena prescription for Decadron, she was not placed on Paxlovid. Objective Data Objective Data Vital Signs: Vital Signs Temp Pulse Resp BP Pulse Ox O2 Del Method O2 Flow Rate 98.2 F 80 22 H 140/61 H 98 Nasal Cannula 2 04/21/23 15:12 04/21/23 15:24 04/21/23 15:12 04/21/23 15:12 04/21/23 15:12 04/21/23 15:24 04/21/23 15:24 Oxygen Flow Rate (L/min) 2 Oxygen Delivery Method Nasal Cannula Weight: 65.8 kg Body Mass Index (BMI) 30.3 Intake & Output: Intake and Output for Last 24 Hours 04/19/23 04/20/23 04/21/23 23:59 23:59 23:59 Intake Total 1350 / 1350 405 / 405 Output Total 700 / 700 Balance 1350 / 1350 -295 / -295 Lab / Micro Data 04/21/23 05:35 04/21/23 05:35 Labs: Laboratory Results - last 24 hr 04/20/23 19:37: WBC 12.9 H, RBC 3.95 L, Hgb 12.5, Hct 37.5, MCV 94.9, MCH 31.6, MCHC 33.3, RDW Std Deviation 44.1 H, RDW Coeff of Mallika 12.6, Plt Count 243, MPV 10.8, Immature Gran % (Auto) 0.400, Neut % (Auto) 76.5 H, Lymph % (Auto) 16.0 L,Kimball % (Auto) 6.9, Eos % (Auto) 0.1, Baso % (Auto) 0.1, Absolute Neuts (auto) 9.9 H, Absolute Lymphs (auto) 2.07, Nucleated RBC % 0, Sodium 134 L, Potassium 3.8, Chloride 102, Carbon Dioxide 25.0, Anion Gap 7, BUN 11, Creatinine 0.71, Estim Creat Clear Calc 49.68, Est GFR (MDRD) Af Amer 103, Est GFR (MDRD) Non-Af 85, BUN/Creatinine Ratio 15.6, Glucose 99, Calcium 8.8, Troponin I High Sens 8 04/20/23 22:14: Urine Color Yellow, Urine Clarity Clear, Urine pH 7.0, Ur Specific Bertha 1.010, Urine Protein 15 H, Urine Glucose (UA) Normal, Urine Ketones 15 H, Urine Occult Blood 25 H, Urine Nitrite Negative, Urine Bilirubin Negative, Urine Urobilinogen Normal, Ur Leukocyte Esterase Negative, Urine RBC 0SEEN, Urine WBC 0 SEEN, Ur Squamous Epith Cells 0 SEEN, Urine Bacteria 0 SEEN, Urine Mucus 0 SEEN 04/20/23 23:55: Lactic Acid 0.6 04/21/23 01:30: MRSA (PCR) Negative 04/21/23 05:35: WBC 11.8 H, RBC 3.48 L, Hgb 11.0 L, Hct 33.7 L, MCV 96.8, MCH 31.6, MCHC 32.6, RDW Std Deviation 45.5 H, RDW Coeff of Mallika 12.7, Plt Count 208,MPV 9.9, Immature Gran % (Auto) 0.600, Neut % (Auto) 71.3 H, Lymph % (Auto) 18.0L, Kimball % (Auto) 9.3, Eos % (Auto) 0.5, Baso % (Auto) 0.3, Absolute Neuts (auto)8.4 H, Absolute Lymphs (auto) 2.12, Nucleated RBC % 0, Sodium 137, Potassium 3.8, Chloride 107, Carbon Dioxide 24.0, Anion Gap 6, BUN 10, Creatinine 0.55, Estim Creat Clear Calc 49.06, Est GFR (MDRD) Af Amer 138, Est GFR (MDRD) Non-Af 114, BUN/Creatinine Ratio 18.3, Glucose 104, Calcium 7.9 L, Phosphorus 3.0, Magnesium 2.2, Total Bilirubin 0.50, AST 7 L, ALT 16, Alkaline Phosphatase 52, Total Protein 6.3 L, Albumin 2.6 L, Globulin 3.7, Albumin/Globulin Ratio 0.7 L, TSH 0.53 Micro: Microbiology 04/20/23 22:14 Urine, Clean Catch Legionella Antigen - Final 04/20/23 22:14 Urine, Clean Catch Streptococcus pneumoniae Antigen (M - Final 04/20/23 21:05 Mucosa - Nasopharyngeal Respiratory Panel (PCR) - Final Radiography Diagnostic Testing: Radiology Impression Chest X-Ray 04/20/23 21:20 IMPRESSION: No acute cardiopulmonary disease. Electronically Signed: Michele Casper MD at 22:26 EST , Brain CT 04/20/23 21:30 IMPRESSION: Negative head/brain CT without intravenous contrast. AIDOC was utilized to assist in identifying pertinent positive findings. Electronically Signed: Michele Casper MD at 22:46 EST Reading Location ID and State: [employer] / [place] Tel , Service support , Chest CT 04/20/23 23:23 IMPRESSION: 1. No pneumonia. No other acute disease. 2. Small to moderate pericardial effusion. Large hiatal hernia. 3. Ancillary findings as above. Electronically Signed: Michele Casper MD at 0:32 EST , Physical Exam Const alert, oriented x3, no apparent distress and average body habitus General Appearance: cooperative, well kempt and well developed Orientation / Consciousness: awake, oriented to person, oriented to place and oriented to time HEENT normocephalic, head/scalp atraumatic and moist oral mucous membranes Eyes PERRL, EOMs intact bilaterally and conjunctivae normal Neck supple, no JVD, thyroid normal and no carotid bruits General: trachea midline Resp normal respiratory effort, no retractions, no use of accessory muscles and clearto auscultation bilaterally Auscultation: Negative for rales, rhonchi or wheezes Cardio regular rate, regular rhythm, S1 normal heart sound, S2 normal heart sound, no murmurs, no rub and no gallops GI normal to inspection, nondistended, normoactive bowel sounds, soft to palpation,non-tender and non-distended Extremity no clubbing, cyanosis or edema Skin no rashes or lesions noted General Skin Exam: no breakdown Neuro oriented x3, CN's II-XII intact bilaterally, no focal motor deficits and no sensory deficits noted Sensorium / Orientation: awake and alert Speech: speech normal Psych affect normal Assessment & Plan Assessment/Plan (1) Hypoxia: PLAN: Plan 1. Hypoxia-etiology unclear at this point, again I have elected to take the patient off antibiotics for now, she has no signs or symptoms of pneumonia, she will have an echocardiogram performed tomorrow, there was a pericardial effusionnoted on the CT of the chest, echocardiogram will be able to ascertain whether this is a significant finding. #2 generalized weakness-patient will be seen by PT and OT #3 chronic anticoagulation-patient takes Eliquis as an outpatient-this is due tothe patient having Leiden factor V #4 osteoporosis-patient is on calcium and vitamin D, she also gets Prolia injections #5 possible pericardial effusion-patient will get an echocardiogram performed tomorrow. Total clinical time spent by myself addressing the patient's medical issues, reviewing all of her data, and collaborating with patient's care team: 35- minutes Charges/Coding Visit Charges Inpatient E&M: 73094 Subs Hosp L2 04/21/23 9745 <Electronically signed by Fransisco Barroso DO> Cosigner Signature (if applicable): CC: ~ Signed [facility] Work Phone: 1([phone]) 174-315701-30-2024 History and physical note Author Mariella Harris [facility] April 21, 2023 12:48am Note Date/Time April 20, 2023 1 1:24pm [facility] Medical Records Department [address] [place] [id number] H&P Exam - Hospitalist 04/20/23 2318 MR#: [id number] Acct: [id number] Name: CARL LOUIS Rep #:[id number] : 1945 77 From: Mariella Harris DO PCP: Dr. Corky Mensah MD Status:A DM IN Location: ICU CVICU20 4-1 HPI - General General Date of Admission: 04/21/23 Date of Service: 04/21/23 Chief Complaint: Fatigue/generalized weakness HPI Narrative CARL LOUIS, is a 77 F who presented to the emergency department at [facility] on 04/20/2023 with a chief complaint of generalized weakness/debility. The patient was diagnosed with COVID-19 infection on 04/07/2023 and was treated with Decadron and Tessalon Perles along with supportive measures by an urgent care. She was not treated with Paxlovid at that time. She was reevaluated by her primary care physician on 04/16/2023 at which time her main concern was ongoing nasal congestion and fatigue along with generalized weakness and feeling unwell. She had no recorded fevers or tachycardia and denied shortness of breath at that time. She had nausea previously but that had been reported to be improving. Post COVID fatigue was considered to be the most likely issue and she was given Flonase and Mucinex and instructedto call if she got worse or develops any new symptoms. Upon presentation today she is complaining of ongoing nasal congestion, headache, fatigue, generalized weakness, and decreased oral intake. She states that she has no real sense of smell or taste and this is affecting her appetite considerably. She has ongoingcough with sputum production of clear sputum. She is having chills at home but has not yet documented a fever however her temperature was 99.5 on arrival here and per discussion with the emergency department physician she was diaphoretic and felt warm. Evidently the patient is very active and up. However, she has been lying in bed only all day and had not been answering her phone for the last2 days. Family friend checked on her and she was found to be sleeping in the bedroom. Given their concerns of the above she was brought to the emergency department for further evaluation. Vital signs on presentation showed a temperature of 99.5, heart rate was 86, blood pressure was 144/75, respiratory rate has been between 18 and 25 and oxygen saturations were initially 94% on room air however she has desatted to 87on room air and was placed on 2 L nasal cannula. Since being placed on oxygen her sats have been between 96 to 98%. Her CBC shows a mild leukocytosis with a white count of 12.9 and a left shift with a 76.5% neutrophilia. She has mild hyponatremia with a sodium of 134. Her BUN and creatinine are normal. Troponinwas normal at 8. UA is not consistent with infection. Lactic acid was pending on admission. Chest x-ray demonstrated no acute cardiopulmonary processes. EKGshowed a right bundle branch block with no interval abnormalities and no ST-T wave changes concerning for acute ischemia. CT of the brain was unremarkable. CT of the chest showed no significant pneumonia but did show a small to moderatepericardial effusion, large hiatal hernia and other chronic findings. She did appear to have bronchiectasis upon my review and some scattered patchy infiltrates. Respiratory viral panel was pending at the time of admission and blood cultures were ordered and pending as well. She was started on ceftriaxone and azithromycin without another source being identified and request for admission was made. [facility] Medical History Anemia Anxiety Arthritis Bladder disease Bone fracture Cardiac murmur Chronic bronchitis COVID-19 Depression DM2 (diabetes mellitus, type 2) Easy bruising Excessive bleeding Factor 5 Leiden mutation, heterozygous Fibromyalgia Flu vaccine need Former smoker Gastric reflux GERD (gastroesophageal reflux disease) Health care maintenance High cholesterol History of back problems History of DVT (deep vein thrombosis) History of hiatal hernia History of irregular heartbeat History of stress test HLD (hyperlipidemia) Left hip pain Migraine Nodular goiter Post-menopausal Pulmonary embolism Seasonal allergies Seborrheic dermatitis URI (upper respiratory infection) Wears dentures Wears glasses Wears hearing aid Home Medications vitamin E (dl, acetate) 180 mg (400 unit) capsule 400 units PO DAILY Supplement 10/13/13 [History Last Taken 08/02/20 08:00] vitamin B complex 1 tab PO DAILY supplement 10/05/18 [History Last Taken 08/02/20 08:00] pantoprazole 40 mg tablet,delayed release 40 mg PO DAILY GERD 07/05/20 [History Last Taken 08/02/20 08:00] apixaban 5 mg tablet (Eliquis) 5 mg PO BID #180 tabs 09/05/22 [Rx Last Taken Unknown] calcium gluconate 650 mg tablet 650 mg PO DAILY 09/05/22 [History Last Taken Unknown] cholecalciferol (vitamin D3) 10 mcg (400 unit) capsule 2,000 unit PO TID Supplement 09/05/22 [History Last Taken Unknown] ferrous sulfate-vitamin C 39 mg-75 mg tablet 1 tab PO DAILY 09/05/22 [History Last Taken Unknown] furosemide 40 mg tablet 40 mg PO DAILY 09/05/22 [History Last Taken Unknown] hydrocodone-acetaminophen 5-325mg 5mg-325mg 0.5 tab PO BID PRN pain 09/05/22 [History Last Taken Unknown] mirtazapine 7.5 mg tablet 7.5 mg PO QHS Sleep #90 tabs 09/05/22 [Rx Last Taken Unknown] potassium chloride 20 mEq tablet,extended release 20 meq PO DAILY 09/05/22 [History Last Taken Unknown] promethazine 25 mg tablet 25 mg PO BID PRN nausea and vomiting #90 tabs 09/05/22[Rx Last Taken Unknown] ketoconazole 2 % shampoo 1 applic topical 2XW #120 mL 03/06/23 [Rx Last Taken Unknown] denosumab 60 mg/mL subcutaneous syringe (Prolia) 60 mg subcut [id number] #1 mL 03/20/23 [Rx Last Taken Unknown] pregabalin 50 mg capsule (Lyrica) 50 mg PO Q8H Burning in left leg 03/20/23 [History Last Taken Unknown] benzonatate 200 mg capsule 200 mg PO TID PRN cough #20 caps 04/07/23 [Rx Last Taken Unknown] fluticasone propionate 50 mcg/actuation nasal spray,suspension (Flonase Allergy Relief) 2 spray intranasal DAILY #16 grams 04/16/23 [Rx Last Taken Unknown] guaifenesin 600 mg tablet, extended release 12 hr (Mucinex) 600 mg PO BID #60 tabs 04/16/23 [Rx Last Taken Unknown] albuterol sulfate 2 puff inhalation PRN shortness of breath or wheezing 04/20/23[History Last Taken Unknown] pantoprazole 40 mg granules delayed-release for susp in packet (Protonix) 40 mg PO DAILY 04/20/23 [History Last Taken Unknown] zoledronic acid 5 mg/100 mL in mannitol 5 %-water intravenous piggybck (Reclast)ea IV .QYEAR 04/20/23 [History Last Taken Unknown] Allergy/AdvReac Type Severity Reaction Status Date / Time castor oil Allergy Unknown Verified 04/20/23 20:24 frovatriptan succinate Allergy Rash Verified 04/16/23 13:49 [From Frova] Iodinated Contrast Media Allergy Vomiting Verified 04/20/23 20:24 sumatriptan [From Imitrex] Allergy Rash Verified 04/20/23 20:24 sumatriptan succinate Allergy Rash Verified 04/20/23 20:24 [From Imitrex] vitamin E (d-alpha Allergy Chest Verified 04/20/23 20:24 tocopherol) tightness ezetimibe [From Zetia] AdvReac Severe Severe GI Verified 04/20/23 20:24 upset/stomach pain levofloxacin [From Levaquin] AdvReac Intermediate pain Verified 04/20/23 20:24 Family History Father CAD (coronary artery disease) Myocardial infarction Bleeding disorder History of blood clots CVA (cerebral vascular accident) Mother Colon cancer Diabetes High cholesterol Cancer Skin Sister Psychiatric care High cholesterol Diabetes Colon cancer Brother Colon cancer High cholesterol Surgical History H/O: hysterectomy Hx of appendectomy Hx of kyphoplasty Social History (Updated 04/21/23 @ 00:[address] Mariella Harris DO) household members: none housing: house Smoking Status: Former smoker alcohol intake: never substance use type: does not use what type of physical activity do you participate in: none seatbelt use: always do you feel safe at home: Yes additional social history: , ambulates independently without an assistive device ROS Constitutional Constitutional: Reports anorexia, chills, fatigue, fever(s), malaise and weakness; Denies change in weight, night sweats or other Eyes Eyes: Denies blurry vision, change in eye color, change in vision, discharge from eye(s), double vision, erythema, eye pain, loss of vision or other ENT HEENT: Reports headache(s), nasal congestion, sinus pressure and other Details: Dysgeusia, anosmia ; Denies abnormal hearing, dysphagia, ear pain, epistaxis, hearing loss, nasal discharge, post nasal drip or sore throat Cardiovascular Cardiovascular: Denies chest pain, claudication, dyspnea on exertion, edema, lightheadedness, orthopnea, palpitations, paroxysmal nocturnal dyspnea, rapid heart rate, syncope or other Respiratory/Chest Respiratory/Chest: Reports cough, excessive phlegm production and productive cough; Denies dyspnea, hemoptysis, shortness of breath at rest, shortness of breath with exertion, wheezing or other Gastrointestinal Gastrointestinal: Reports other Details: Decreased appetite ; Denies abdominal pain, coffee ground emesis, constipation, diarrhea, dyspepsia, hematemesis, hematochezia, loose stools, melena, nausea or vomiting Genitourinary Genitourinary: Denies burning urination, difficulty urinating, dysuria, hematuria, nocturia, urinary frequency, urinary hesitancy, urinary incontinence,urinary urgency or other Musculoskeletal Musculoskeletal: Denies arthralgias, back pain, joint pain, joint stiffness, joint swelling, myalgias, neck pain or other Neurologic Neurologic: Denies abnormal gait, abnormal speech, confusion, disequilibrium, dizziness, focal weakness, headache(s), numbness, paresthesias, seizure-like activity, seizures, syncope, tingling, tremor(s) or other Psychiatric Psychiatric: Denies anxiety, depression, homicidal ideation, suicidal ideation or other Endocrine Endocrinology: Denies change in body appearance, cold intolerance, excessive sweating, heat intolerance, polydipsia, polyuria or other Hematologic/Lymphatic Hematologic/Lymphatic: Reports easy bleeding and easy bruising; Denies anemia, lymphadenopathy or other Vital Signs Vital Signs Vital Signs: 04/20/23 20:17 04/20/23 20:37 04/20/23 21:21 Temperature 99.5 F H 98.2 F Temperature Source Oral Oral Pulse Rate 86 90 Respiratory Rate 18 25 H Respiratory Effort Short of Breath Respiratory Pattern Normal Blood Pressure 144/75 H 103/61 Blood Pressure Mean 98 75 Pulse Ox 94 98 Oxygen Delivery Method Room Air Nasal Cannula Oxygen Flow Rate (L/min) 2 04/20/23 20:41 04/20/23 22:00 04/20/23 20:37 Temperature 98.6 F Temperature Source Oral Pulse Rate 85 87 Respiratory Rate 22 H 20 H Respiratory Effort Respiratory Pattern Blood Pressure 123/88 H Blood Pressure Mean 99 Pulse Ox 96 94 Oxygen Delivery Method Room Air Nasal Cannula Oxygen Flow Rate (L/min) 2 04/20/23 20:40 04/20/23 20:45 04/20/23 20:50 Temperature Temperature Source Pulse Rate 83 84 80 Respiratory Rate 20 H 19 H 23 H Respiratory Effort Respiratory Pattern Blood Pressure 131/70 H Blood Pressure Mean 79 Pulse Ox 94 92 93 Oxygen Delivery Method Oxygen Flow Rate (L/min) 04/20/23 21:00 04/20/23 21:10 04/20/23 21:15 Temperature Temperature Source Pulse Rate 83 Respiratory Rate 17 Respiratory Effort Respiratory Pattern Blood Pressure 149/60 H 103/61 Blood Pressure Mean 86 69 Pulse Ox 90 Oxygen Delivery Method Oxygen Flow Rate (L/min) 04/20/23 21:20 04/20/23 21:30 04/20/23 21:40 Temperature Temperature Source Pulse Rate 84 86 84 Respiratory Rate 21 H 21 H 26 H Respiratory Effort Respiratory Pattern Blood Pressure 135/67 H Blood Pressure Mean 83 Pulse Ox 88 87 97 Oxygen Delivery Method Room Air Nasal Cannula Oxygen Flow Rate (L/min) 2 04/20/23 21:45 04/20/23 21:45 04/20/23 21:57 Temperature Temperature Source Pulse Rate 82 88 Respiratory Rate 26 H 21 H Respiratory Effort Respiratory Pattern Blood Pressure 135/57 H 135/57 H Blood Pressure Mean 79 79 Pulse Ox 97 96 Oxygen Delivery Method Nasal Cannula Oxygen Flow Rate (L/min) 2 04/20/23 22:00 04/20/23 22:11 04/20/23 22:15 Temperature Temperature Source Pulse Rate 85 89 85 Respiratory Rate 22 H 10 L 25 H Respiratory Effort Respiratory Pattern Blood Pressure 123/58 H 125/61 H Blood Pressure Mean 74 81 Pulse Ox 96 96 96 Oxygen Delivery Method Nasal Cannula Oxygen Flow Rate (L/min) 2 Weight Weight: 67.5 kg Body Mass Index (BMI) 31.1 Physical Exam Const alert, oriented x3, no apparent distress and well nourished Constitutional Narrative: Obese, elderly female, lying in bed, appears if she does not feel well however does not appear toxic at this time, friend at bedside, appears comfortable General Appearance: cooperative HEENT normocephalic, head/scalp atraumatic and moist oral mucous membranes HEENT Narrative: Mallampati 2-3, no thrush, moderate hearing loss Eyes PERRL, EOMs intact bilaterally and conjunctivae normal Eyes Narrative: No scleral icterus Neck no lymphadenopathy and supple Neck Narrative: Trachea midline, no thyroid enlargement Resp normal respiratory effort, no retractions, no use of accessory muscles and No clear to auscultation bilaterally Resp Narrative: Scattered end expiratory wheeze in the right base Auscultation: wheezes; Negative for rales or rhonchi Cardio regular rate, regular rhythm, S1 normal heart sound, S2 normal heart sound, no murmurs, no rub, no gallops and no clicks GI normal to inspection, nondistended, normoactive bowel sounds, soft to palpation and non-tender Extremity no clubbing, cyanosis or edema Extremity Narrative: Pedal pulses are 2+ Neuro oriented x3, moves all extremities and no focal motor deficits Neuro Narrative: Significant generalized weakness noted with proximal musculature being weaker than distal Speech: speech normal Psych Psych Narrative: Affect is flat, eye contact is good, no signs of depression or anxiety Results Lab / Micro Data Attestation: I reviewed the patient's lab results. 04/20/23 19:37 04/20/23 19:37 Labs: Laboratory Results - last 24 hr 04/20/23 19:37: WBC 12.9 H, RBC 3.95 L, Hgb 12.5, Hct 37.5, MCV 94.9, MCH 31.6, MCHC 33.3, RDW Std Deviation 44.1 H, RDW Coeff of Mallika 12.6, Plt Count 243, MPV 10.8, Immature Gran % (Auto) 0.400, Neut % (Auto) 76.5 H, Lymph % (Auto) 16.0 L,Kimball % (Auto) 6.9, Eos % (Auto) 0.1, Baso % (Auto) 0.1, Absolute Neuts (auto) 9.9 H, Absolute Lymphs (auto) 2.07, Nucleated RBC % 0, Sodium 134 L, Potassium 3.8, Chloride 102, Carbon Dioxide 25.0, Anion Gap 7, BUN 11, Creatinine 0.71, Estim Creat Clear Calc 49.68, Est GFR (MDRD) Af Amer 103, Est GFR (MDRD) Non-Af 85, BUN/Creatinine Ratio 15.6, Glucose 99, Calcium 8.8, Troponin I High Sens 8 04/20/23 22:14: Urine Color Yellow, Urine Clarity Clear, Urine pH 7.0, Ur Specific Bertha 1.010, Urine Protein 15 H, Urine Glucose (UA) Normal, Urine Ketones 15 H, Urine Occult Blood 25 H, Urine Nitrite Negative, Urine Bilirubin Negative, Urine Urobilinogen Normal, Ur Leukocyte Esterase Negative, Urine RBC 0SEEN, Urine WBC 0 SEEN, Ur Squamous Epith Cells 0 SEEN, Urine Bacteria 0 SEEN, Urine Mucus 0 SEEN Imaging Radiology Impression Chest X-Ray 04/20/23 21:20 IMPRESSION: No acute cardiopulmonary disease. Electronically Signed: Michele Casper MD at 22:26 EST Reading Location ID and State: [facility] / [place] Tel , Service support , Brain CT 04/20/23 21:30 IMPRESSION: Negative head/brain CT without intravenous contrast. A[facility] was utilized to assist in identifying pertinent positive findings. Electronically Signed: Michele Casper MD at 22:46 EST Reading Location ID and State: [address] [place] [address] Tel , Service support , Assessment & Plan Assessment/Plan (1) Debility: (2) Fever: (3) Hypoxia: (4) Generalized weakness: (5) Leukocytosis: PLAN: Plan Fever -Etiology is currently unclear -Patient does have leukocytosis with left shift -With hypoxia preliminary best estimate of source would be a pneumonia -Chest x-ray and CT are not indicative of pneumonia however at this time -Respiratory viral panel is pending -Strep pneumo and Legionella antigens are pending -Check sputum culture -Blood cultures are pending -Start ceftriaxone and azithromycin Hypoxia with cough -Oxygen saturations were 87% on room air. Patient does not wear oxygen at baseline. Remote history of tobacco abuse -CT of the chest does show some bronchiectasis -Scheduled DuoNebs with as needed albuterol -Check strep pneumo and Legionella antigens -Check sputum culture -Continue home Mucinex -Continue home Tessalon Perles -I-S -Acapella -Will need ambulatory pulse ox prior to discharge Leukocytosis -Likely related to the above -Antibiotics as ordered -Cultures as ordered -Continue to monitor Generalized weakness/debility -Patient typically ambulates independently without assistive device at home -Lives independently -Suspect related to above -Consult PT/OT -Case management/social work to follow to assist with discharge planning Decreased appetite -Likely related to acute illness along with dysgeusia and anosmia -Consult dietitian -Add supplements with Ensure Recent COVID-19 infection -Was treated with Decadron and Tessalon Perles -Was not given Paxlovid -Diagnosed on 04/07/2023 -Out of the window for isolation History of PE/factor V Leiden heterozygous -Continue home anticoagulation with Eliquis GERD/hiatal hernia -Continue home PPI DM-2 -Diet controlled -P.o. appetite is very poor so we will liberalize diet and adjust if need to dueto hyperglycemia Neuropathy -Continue home Lyrica Osteoporosis -Patient is on Prolia -Continue home vitamin D and potassium supplementation History of migraines -No current issues Depression/insomnia -Continue home mirtazapine Hearing loss -Patient wears hearing aids Obesity -BMI is 31.1 -Recommend weight loss -Complicates treatment, prognosis, outcomes DVT prophylaxis -Continue home apixaban CODE STATUS -Full code is verified admission Charges/Coding Visit Charges Inpatient E&M: 56886 Init Hosp L2 04/21/23 0048 <Electronically signed by Mariella Harris DO> Cosigner Signature (if applicable): CC: Dr. Corky Mensah MD; Dr. Mariella Harris DO~ Signed [facility] Work Phone: [phone]) 926-496301-30-2024 Discharge summary Author Aleksandr Anderson [facility] April 21, 2023 12:41am Note Date/Time April 20, 2023 9 :02pm [facility] Medical Records Department [address] [place] [id number] Emergency Department Summary 04/20/23 MR#: [id number] Acct: [id number] Name: CARL LOUIS Rep #:[id number] : 1945 77 From: Aleksandr Conde PCP: Dr. Corky Mensah MD Status:A DM IN Location: ICU CVICU20 4-1 HPI <JOSE Rivas - Last Filed: 04/20/23 21:31> History of Present Illness Chief Complaint: Cold Sx Narrative Narrative: Patient is a 77-year-old female with history of pulmonary embolus on Eliquis, obesity, chronic back pain, GERD who presents to the emergency department for 3 weeks of generalized illness. Patient did test positive for COVID-19 2 weeks ago. Patient has been sick for a total of 21 days. Per the family, the patientis not getting over it, she is more weak, not eating and drinking normally. Patient is usually up and active all day however has been laying in bed. The patient was not answering her phone the last 2 days, she was checked on by a friend and was in the bedroom sleeping. They are concerned and is here for evaluation. She continues to have fever and chills. [facility] <JOSE Rivas - Last Filed: 04/20/23 21:31> [facility] Medical History (Updated 04/20/23 @ 23:[address] Mariella Harris, DO) Anemia Anxiety Arthritis Bladder disease Bone fracture Cardiac murmur Chronic bronchitis COVID-19 Depression DM2 (diabetes mellitus, type 2) Easy bruising Excessive bleeding Factor 5 Leiden mutation, heterozygous Fibromyalgia Flu vaccine need Former smoker Gastric reflux GERD (gastroesophageal reflux disease) Health care maintenance High cholesterol History of back problems History of DVT (deep vein thrombosis) History of hiatal hernia History of irregular heartbeat History of stress test HLD (hyperlipidemia) Left hip pain Migraine Nodular goiter Post-menopausal Pulmonary embolism Seasonal allergies Seborrheic dermatitis URI (upper respiratory infection) Wears dentures Wears glasses Wears hearing aid Home Medications vitamin E (dl, acetate) 180 mg (400 unit) capsule 400 units PO DAILY Supplement 10/13/13 [History Last Taken 08/02/20 08:00] vitamin B complex 1 tab PO DAILY supplement 10/05/18 [History Last Taken 08/02/20 08:00] pantoprazole 40 mg tablet,delayed release 40 mg PO DAILY GERD 07/05/20 [History Last Taken 08/02/20 08:00] apixaban 5 mg tablet (Eliquis) 5 mg PO BID #180 tabs 09/05/22 [Rx Last Taken Unknown] calcium gluconate 650 mg tablet 650 mg PO DAILY 09/05/22 [History Last Taken Unknown] cholecalciferol (vitamin D3) 10 mcg (400 unit) capsule 2,000 unit PO TID Supplement 09/05/22 [History Last Taken Unknown] ferrous sulfate-vitamin C 39 mg-75 mg tablet 1 tab PO DAILY 09/05/22 [History Last Taken Unknown] furosemide 40 mg tablet 40 mg PO DAILY 09/05/22 [History Last Taken Unknown] hydrocodone-acetaminophen 5-325mg 5mg-325mg 0.5 tab PO BID PRN pain 09/05/22 [History Last Taken Unknown] mirtazapine 7.5 mg tablet 7.5 mg PO QHS Sleep #90 tabs 09/05/22 [Rx Last Taken Unknown] potassium chloride 20 mEq tablet,extended release 20 meq PO DAILY 09/05/22 [History Last Taken Unknown] promethazine 25 mg tablet 25 mg PO BID PRN nausea and vomiting #90 tabs 09/05/22[Rx Last Taken Unknown] ketoconazole 2 % shampoo 1 applic topical 2XW #120 mL 03/06/23 [Rx Last Taken Unknown] denosumab 60 mg/mL subcutaneous syringe (Prolia) 60 mg subcut [id number] #1 mL 03/20/23 [Rx Last Taken Unknown] pregabalin 50 mg capsule (Lyrica) 50 mg PO Q8H Burning in left leg 03/20/23 [History Last Taken Unknown] benzonatate 200 mg capsule 200 mg PO TID PRN cough #20 caps 04/07/23 [Rx Last Taken Unknown] fluticasone propionate 50 mcg/actuation nasal spray,suspension (Flonase Allergy Relief) 2 spray intranasal DAILY #16 grams 04/16/23 [Rx Last Taken Unknown] guaifenesin 600 mg tablet, extended release 12 hr (Mucinex) 600 mg PO BID #60 tabs 04/16/23 [Rx Last Taken Unknown] albuterol sulfate 2 puff inhalation PRN shortness of breath or wheezing 04/20/23[History Last Taken Unknown] pantoprazole 40 mg granules delayed-release for susp in packet (Protonix) 40 mg PO DAILY 04/20/23 [History Last Taken Unknown] zoledronic acid 5 mg/100 mL in mannitol 5 %-water intravenous piggybck (Reclast)ea IV .QYEAR 04/20/23 [History Last Taken Unknown] Allergy/AdvReac Type Severity Reaction Status Date / Time castor oil Allergy Unknown Verified 04/20/23 20:24 frovatriptan succinate Allergy Rash Verified 04/16/23 13:49 [From Frova] Iodinated Contrast Media Allergy Vomiting Verified 04/20/23 20:24 sumatriptan [From Imitrex] Allergy Rash Verified 04/20/23 20:24 sumatriptan succinate Allergy Rash Verified 04/20/23 20:24 [From Imitrex] vitamin E (d-alpha Allergy Chest Verified 04/20/23 20:24 tocopherol) tightness ezetimibe [From Zetia] AdvReac Severe Severe GI Verified 04/20/23 20:24 upset/stomach pain levofloxacin [From Levaquin] AdvReac Intermediate pain Verified 04/20/23 20:24 Family History Father CAD (coronary artery disease) Myocardial infarction Bleeding disorder History of blood clots CVA (cerebral vascular accident) Mother Colon cancer Diabetes High cholesterol Cancer Skin Sister Psychiatric care High cholesterol Diabetes Colon cancer Brother Colon cancer High cholesterol Surgical History H/O: hysterectomy Hx of appendectomy Hx of kyphoplasty Social History Smoking Status: Former smoker alcohol intake: never substance use type: does not use what type of physical activity do you participate in: none seatbelt use: always do you feel safe at home: Yes additional social history: ROS <JOSE Rivas - Last Filed: 04/20/23 21:31> ROS ED ROS Narrative Constitutional: Negative for weight loss, weakness. Positive for fever and chills Eyes: Negative for vision loss, vision change, double vision ENT: Negative for any sore throat, ear pain, congestion Cardiovascular: Negative for any chest pain, tightness, palpitations Respiratory: Negative for any sputum production, hemoptysis, dyspnea, dyspnea on exertion, orthopnea. Positive for cough Gastrointestinal: Negative for any abdominal pain,vomiting, diarrhea, constipation, blood in stool, blood in vomit. Positive for nausea : Negative for any urinary frequency, dysuria, retention, blood in urine Muscle skeletal: Negative for any arthralgias, neck pain, back pain. Positive for myalgias Neurological: Negative for any syncope, paresthesias, dizziness. Positive for headache Skin: Negative for any rashes, lumps, itching, abrasions, lacerations Psychiatric: Negative for any depression, anxiety, stress, suicidal ideation, homicidal ideation Hematologic: Negative for any easy bruising, excessive bruising, easy bleeding Allergies: Negative for any eczema, hives, rash EXAM <JOSE Rivas - Last Filed: 04/20/23 21:31> Physical Exam Narrative Exam Narrative: Vital signs reviewed. Patient does appear to not feel well. Upon physical examination, patient does appear dry HEET: Head normocephalic atraumatic, TMs clear bilaterally. Posterior pharynx is clear, dry mucous membranes. Nares clear bilaterally. Neck: Supple with no lymphadenopathy or tenderness. No signs of meningismus. Cardiac: Regular rate and rhythm systolic murmur, no gallops or rubs, equal peripheral pulses bilaterally. Respiratory: Patient had slight crackles to the mid to lower left lobe.. No chest tenderness. Abdomen: Soft, nontender, nondistended. No abdominal bruit or pulsatile masses. No hepatosplenomegaly Extremities: No peripheral edema, no signs of gross trauma or deformity. Activefull range of motion of all extremities. Neuro: Cranial nerves II through XII intact, no focal neurological deficits. Skin: Clean dry and intact with no rash, purpura, petechiae, vesicles or pustules. Backs/flank: No CVA tenderness, no midline spinal tenderness, no deformity. Psych: Normal mood and affect. No SI, HI or acute psychosis. Const Vital Signs: 04/20/23 20:17 04/20/23 20:37 04/20/23 21:21 Temperature 99.5 F H 98.2 F Temperature Source Oral Oral Pulse Rate 86 90 Respiratory Rate 18 25 H Respiratory Effort Short of Breath Respiratory Pattern Normal Blood Pressure 144/75 H 103/61 Blood Pressure Mean 98 75 Pulse Ox 94 98 Oxygen Delivery Method Room Air Nasal Cannula Oxygen Flow Rate (L/min) 2 04/20/23 20:41 04/20/23 22:00 04/20/23 20:37 Temperature 98.6 F Temperature Source Oral Pulse Rate 85 87 Respiratory Rate 22 H 20 H Respiratory Effort Respiratory Pattern Blood Pressure 123/88 H Blood Pressure Mean 99 Pulse Ox 96 94 Oxygen Delivery Method Room Air Nasal Cannula Oxygen Flow Rate (L/min) 2 04/20/23 20:40 04/20/23 20:45 04/20/23 20:50 Temperature Temperature Source Pulse Rate 83 84 80 Respiratory Rate 20 H 19 H 23 H Respiratory Effort Respiratory Pattern Blood Pressure 131/70 H Blood Pressure Mean 79 Pulse Ox 94 92 93 Oxygen Delivery Method Oxygen Flow Rate (L/min) 04/20/23 21:00 04/20/23 21:10 04/20/23 21:15 Temperature Temperature Source Pulse Rate 83 Respiratory Rate 17 Respiratory Effort Respiratory Pattern Blood Pressure 149/60 H 103/61 Blood Pressure Mean 86 69 Pulse Ox 90 Oxygen Delivery Method Oxygen Flow Rate (L/min) 04/20/23 21:20 04/20/23 21:30 04/20/23 21:40 Temperature Temperature Source Pulse Rate 84 86 84 Respiratory Rate 21 H 21 H 26 H Respiratory Effort Respiratory Pattern Blood Pressure 135/67 H Blood Pressure Mean 83 Pulse Ox 88 87 97 Oxygen Delivery Method Room Air Nasal Cannula Oxygen Flow Rate (L/min) 2 04/20/23 21:45 04/20/23 21:45 04/20/23 21:57 Temperature Temperature Source Pulse Rate 82 88 Respiratory Rate 26 H 21 H Respiratory Effort Respiratory Pattern Blood Pressure 135/57 H 135/57 H Blood Pressure Mean 79 79 Pulse Ox 97 96 Oxygen Delivery Method Nasal Cannula Oxygen Flow Rate (L/min) 2 04/20/23 22:00 04/20/23 22:11 04/20/23 22:15 Temperature Temperature Source Pulse Rate 85 89 85 Respiratory Rate 22 H 10 L 25 H Respiratory Effort Respiratory Pattern Blood Pressure 123/58 H 125/61 H Blood Pressure Mean 74 81 Pulse Ox 96 96 96 Oxygen Delivery Method Nasal Cannula Oxygen Flow Rate (L/min) 2 04/20/23 23:00 04/20/23 22:20 04/20/23 22:30 Temperature 98.3 F Temperature Source Oral Pulse Rate 83 87 86 Respiratory Rate 24 H 25 H 17 Respiratory Effort Respiratory Pattern Blood Pressure 119/58 L 125/63 H Blood Pressure Mean 78 82 Pulse Ox 96 96 97 Oxygen Delivery Method Room Air Oxygen Flow Rate (L/min) 2 04/20/23 22:40 04/20/23 22:45 04/20/23 22:50 Temperature Temperature Source Pulse Rate 83 77 Respiratory Rate 22 H 24 H Respiratory Effort Respiratory Pattern Blood Pressure 124/63 H Blood Pressure Mean 73 Pulse Ox 96 96 Oxygen Delivery Method Oxygen Flow Rate (L/min) 04/20/23 23:00 04/20/23 23:10 04/20/23 23:15 Temperature Temperature Source Pulse Rate 83 77 74 Respiratory Rate 24 H 23 H 25 H Respiratory Effort Respiratory Pattern Blood Pressure 119/58 L 122/60 H Blood Pressure Mean 76 79 Pulse Ox 96 96 96 Oxygen Delivery Method Nasal Cannula Oxygen Flow Rate (L/min) 2 04/20/23 23:20 04/20/23 23:30 04/20/23 23:38 Temperature Temperature Source Pulse Rate 77 79 Respiratory Rate 24 H 18 Respiratory Effort Respiratory Pattern Blood Pressure 118/60 Blood Pressure Mean 78 Pulse Ox 96 96 Oxygen Delivery Method Oxygen Flow Rate (L/min) 04/20/23 23:40 04/20/23 23:45 04/20/23 23:50 Temperature Temperature Source Pulse Rate 80 73 78 Respiratory Rate 22 H 25 H 23 H Respiratory Effort Respiratory Pattern Blood Pressure 130/57 H Blood Pressure Mean 75 Pulse Ox 96 95 96 Oxygen Delivery Method Oxygen Flow Rate (L/min) Positive well nourished <Dr. Aleksandr Anderson, DO - Last Filed: 04/21/23 00:29> Physical Exam Const Vital Signs: 04/20/23 20:17 04/20/23 20:37 04/20/23 21:21 Temperature 99.5 F H 98.2 F Temperature Source Oral Oral Pulse Rate 86 90 Respiratory Rate 18 25 H Respiratory Effort Short of Breath Respiratory Pattern Normal Blood Pressure 144/75 H 103/61 Blood Pressure Mean 98 75 Pulse Ox 94 98 Oxygen Delivery Method Room Air Nasal Cannula Oxygen Flow Rate (L/min) 2 04/20/23 20:41 04/20/23 22:00 04/20/23 20:37 Temperature 98.6 F Temperature Source Oral Pulse Rate 85 87 Respiratory Rate 22 H 20 H Respiratory Effort Respiratory Pattern Blood Pressure 123/88 H Blood Pressure Mean 99 Pulse Ox 96 94 Oxygen Delivery Method Room Air Nasal Cannula Oxygen Flow Rate (L/min) 2 04/20/23 20:40 04/20/23 20:45 04/20/23 20:50 Temperature Temperature Source Pulse Rate 83 84 80 Respiratory Rate 20 H 19 H 23 H Respiratory Effort Respiratory Pattern Blood Pressure 131/70 H Blood Pressure Mean 79 Pulse Ox 94 92 93 Oxygen Delivery Method Oxygen Flow Rate (L/min) 04/20/23 21:00 04/20/23 21:10 04/20/23 21:15 Temperature Temperature Source Pulse Rate 83 Respiratory Rate 17 Respiratory Effort Respiratory Pattern Blood Pressure 149/60 H 103/61 Blood Pressure Mean 86 69 Pulse Ox 90 Oxygen Delivery Method Oxygen Flow Rate (L/min) 04/20/23 21:20 04/20/23 21:30 04/20/23 21:40 Temperature Temperature Source Pulse Rate 84 86 84 Respiratory Rate 21 H 21 H 26 H Respiratory Effort Respiratory Pattern Blood Pressure 135/67 H Blood Pressure Mean 83 Pulse Ox 88 87 97 Oxygen Delivery Method Room Air Nasal Cannula Oxygen Flow Rate (L/min) 2 04/20/23 21:45 04/20/23 21:45 04/20/23 21:57 Temperature Temperature Source Pulse Rate 82 88 Respiratory Rate 26 H 21 H Respiratory Effort Respiratory Pattern Blood Pressure 135/57 H 135/57 H Blood Pressure Mean 79 79 Pulse Ox 97 96 Oxygen Delivery Method Nasal Cannula Oxygen Flow Rate (L/min) 2 04/20/23 22:00 04/20/23 22:11 04/20/23 22:15 Temperature Temperature Source Pulse Rate 85 89 85 Respiratory Rate 22 H 10 L 25 H Respiratory Effort Respiratory Pattern Blood Pressure 123/58 H 125/61 H Blood Pressure Mean 74 81 Pulse Ox 96 96 96 Oxygen Delivery Method Nasal Cannula Oxygen Flow Rate (L/min) 2 04/20/23 23:00 04/20/23 22:20 04/20/23 22:30 Temperature 98.3 F Temperature Source Oral Pulse Rate 83 87 86 Respiratory Rate 24 H 25 H 17 Respiratory Effort Respiratory Pattern Blood Pressure 119/58 L 125/63 H Blood Pressure Mean 78 82 Pulse Ox 96 96 97 Oxygen Delivery Method Room Air Oxygen Flow Rate (L/min) 2 04/20/23 22:40 04/20/23 22:45 04/20/23 22:50 Temperature Temperature Source Pulse Rate 83 77 Respiratory Rate 22 H 24 H Respiratory Effort Respiratory Pattern Blood Pressure 124/63 H Blood Pressure Mean 73 Pulse Ox 96 96 Oxygen Delivery Method Oxygen Flow Rate (L/min) 04/20/23 23:00 04/20/23 23:10 04/20/23 23:15 Temperature Temperature Source Pulse Rate 83 77 74 Respiratory Rate 24 H 23 H 25 H Respiratory Effort Respiratory Pattern Blood Pressure 119/58 L 122/60 H Blood Pressure Mean 76 79 Pulse Ox 96 96 96 Oxygen Delivery Method Nasal Cannula Oxygen Flow Rate (L/min) 2 04/20/23 23:20 04/20/23 23:30 04/20/23 23:38 Temperature Temperature Source Pulse Rate 77 79 Respiratory Rate 24 H 18 Respiratory Effort Respiratory Pattern Blood Pressure 118/60 Blood Pressure Mean 78 Pulse Ox 96 96 Oxygen Delivery Method Oxygen Flow Rate (L/min) 04/20/23 23:40 04/20/23 23:45 04/20/23 23:50 Temperature Temperature Source Pulse Rate 80 73 78 Respiratory Rate 22 H 25 H 23 H Respiratory Effort Respiratory Pattern Blood Pressure 130/57 H Blood Pressure Mean 75 Pulse Ox 96 95 96 Oxygen Delivery Method Oxygen Flow Rate (L/min) MDM <JOSE Rivas - Last Filed: 04/20/23 21:31> [facility] Lab Data Labs: Laboratory Results - last 24 hr 04/20/23 04/20/23 19:37 22:14 WBC 12.9 H RBC 3.95 L Hgb 12.5 Hct 37.5 MCV 94.9 MCH 31.6 MCHC 33.3 RDW Std Deviation 44.1 H RDW Coeff of Mallika 12.6 Plt Count 243 MPV 10.8 Immature Gran % (Auto) 0.400 Neut % (Auto) 76.5 H Lymph % (Auto) 16.0 L Kimball % (Auto) 6.9 Eos % (Auto) 0.1 Baso % (Auto) 0.1 Absolute Neuts (auto) 9.9 H Absolute Lymphs (auto) 2.07 Nucleated RBC % 0 Sodium 134 L Potassium 3.8 Chloride 102 Carbon Dioxide 25.0 Anion Gap 7 BUN 11 Creatinine 0.71 Estim Creat Clear Calc 49.68 Est GFR (MDRD) Af Amer 103 Est GFR (MDRD) Non-Af 85 BUN/Creatinine Ratio 15.6 Glucose 99 Calcium 8.8 Troponin I High Sens 8 Urine Color Yellow Urine Clarity Clear Urine pH 7.0 Ur Specific Bertha 1.010 Urine Protein 15 H Urine Glucose (UA) Normal Urine Ketones 15 H Urine Occult Blood 25 H Urine Nitrite Negative Urine Bilirubin Negative Urine Urobilinogen Normal Ur Leukocyte Esterase Negative Urine RBC 0 SEEN Urine WBC 0 SEEN Ur Squamous Epith Cells 0 SEEN Urine Bacteria 0 SEEN Urine Mucus 0 SEEN Radiography Diagnostic Testing: Clinical Impression(s) from Imaging Studies Chest X-Ray 04/20/23 21:20 IMPRESSION: No acute cardiopulmonary disease. Electronically Signed: Michele Casper MD at 22:26 EST , Brain CT 04/20/23 21:30 IMPRESSION: Negative head/brain CT without intravenous contrast. AIDOC was utilized to assist in identifying pertinent positive findings. Electronically Signed: Michele Casper MD at 22:46 EST , Treatment and Re-Evaluation :: Patient appears to be unwell appearing, vital signs do appear stable, patient isnot hypoxic. Presenting to the emergency department with complaints of ongoing fever, chills, cough. Patient's continues to have fever and chills and has beensick for greater than 3 weeks. Differential diagnose includes community-acquired pneumonia, UTI, dehydration, electrolyte abnormality, ACS or MA. Patient will receive laboratory values, including a troponin. Patient will receive a two-view chest x-ray looking for any pneumonia. Patient will be given1 L of normal saline while Zofran and Tylenol. Patient currently does have chills. Patient will receive a respiratory panel. All radiologic examinations were read, reviewed by the emergency department attending. From these reads, a plan of care will be put in place. <Dr. Aleksandr Anderson DO - Last Filed: 04/21/23 00:29> MDM History & Record Review Discussion w/independent historian: Patient and Family Lab Data Attestation: I reviewed the patient's lab results. Labs: Laboratory Results - last 24 hr 04/20/23 04/20/23 19:37 22:14 WBC 12.9 H RBC 3.95 L Hgb 12.5 Hct 37.5 MCV 94.9 MCH 31.6 MCHC 33.3 RDW Std Deviation 44.1 H RDW Coeff of Mallika 12.6 Plt Count 243 MPV 10.8 Immature Gran % (Auto) 0.400 Neut % (Auto) 76.5 H Lymph % (Auto) 16.0 L Kimball % (Auto) 6.9 Eos % (Auto) 0.1 Baso % (Auto) 0.1 Absolute Neuts (auto) 9.9 H Absolute Lymphs (auto) 2.07 Nucleated RBC % 0 Sodium 134 L Potassium 3.8 Chloride 102 Carbon Dioxide 25.0 Anion Gap 7 BUN 11 Creatinine 0.71 Estim Creat Clear Calc 49.68 Est GFR (MDRD) Af Amer 103 Est GFR (MDRD) Non-Af 85 BUN/Creatinine Ratio 15.6 Glucose 99 Calcium 8.8 Troponin I High Sens 8 Urine Color Yellow Urine Clarity Clear Urine pH 7.0 Ur Specific Bertha 1.010 Urine Protein 15 H Urine Glucose (UA) Normal Urine Ketones 15 H Urine Occult Blood 25 H Urine Nitrite Negative Urine Bilirubin Negative Urine Urobilinogen Normal Ur Leukocyte Esterase Negative Urine RBC 0 SEEN Urine WBC 0 SEEN Ur Squamous Epith Cells 0 SEEN Urine Bacteria 0 SEEN Urine Mucus 0 SEEN Radiography Diagnostic Testing: Clinical Impression(s) from Imaging Studies Chest X-Ray 04/20/23 21:20 IMPRESSION: No acute cardiopulmonary disease. Electronically Signed: Michele Casper MD at 22:26 EST , Brain CT 04/20/23 21:30 IMPRESSION: Negative head/brain CT without intravenous contrast. AIDOC was utilized to assist in identifying pertinent positive findings. Electronically Signed: Michele Casper MD at 22:46 EST , Treatment and Re-Evaluation :: Patient appears to be unwell appearing, vital signs do appear stable, patient isnot hypoxic. Presenting to the emergency department with complaints of ongoing fever, chills, cough. Patient's continues to have fever and chills and has beensick for greater than 3 weeks. Differential diagnose includes community-acquired pneumonia, UTI, dehydration, electrolyte abnormality, ACS or MA. Patient will receive laboratory values, including a troponin. Patient will receive a two-view chest x-ray looking for any pneumonia. Patient will be given1 L of normal saline while Zofran and Tylenol. Patient currently does have chills. Patient will receive a respiratory panel. All radiologic examinations were read, reviewed by the emergency department attending. From these reads, a plan of care will be put in place. I have personally performed a face to face assessment of the patient and have reviewed the SAMANTHA Note. I performed a substantive portion of the visit including all aspects of the following. My andrade findings include: History is 77-year-old female contracted COVID towards the middle of March along with most of her family members. She continues to have a lingering cough and has been experiencing some nausea. Does report that she took some Phenerganand Tylenol like she had some slurred speech and that that Tylenol did not agree with her. Family states that the past couple days she has been in bed and today did not really get out of bed due to weakness. Patient notes that sheis feeling very shaky and sweaty before arrival. Patient is on apixaban for factor V and history of DVT. Exam is patient appears to have rigors she is diaphoretic. She appears very frail. This is in contrast to the family's description of a very active independent female. Lung sounds are basically clear. She appears to have dry mucous membranes. Medical Decison Making not seen an obvious source for the patient's infection. I sent a viral panel off. She did start to have some hypoxia is not requiring some nasal cannula. My initial impression of the chest x-ray is no acute process. Final CT of the chest read is not back. But I do not see an obvious infiltrate. She does have a slightly elevated white count and left shift. We obtained blood cultures lactic acid. In speaking with the hospitalist made shared decision making and administered Rocephin azithromycin. Plan and will be admission. Discharge Plan Triage Chief Complaint: Cold Sx ED Midlevel Provider: Jose E Castro ED Provider: Aleksandr Anderson Dx/Rx/DC Orders Primary Care Provider: Corky Mensah What to do if you have Problems For any increased pain, shortness of breath, bleeding, nausea or vomiting, chestpain, or any unexpected problems, contact your Primary Care Provider. Call [facility] ([phone]) or report to the closest Emergency Room. Call 911 if necessary. 04/21/23 0041 <Electronically signed by Aleksandr Anderson DO> Cosigner Signature (if applicable): 04/20/23 213 <Electronically signed by Jose E Castro [employer]RIAGE [employer] FAMILY TEACHER-C> CC: Dr. Corky Mensah MD ~ Signed [facility] Work Phone: [phone] 331-356101-29-2024 Discharge summary Author Aleksandr Anderson [facility] April 21, 2023 12:41am Note Date/Time April 20, 2023 9 :02pm [facility] Medical Records Department [address] [place] [address] Emergency Department Summary 04/20/23 MR#: [id number] Acct: [id number] Name: CARL LOUIS Rep #:[id number] : 1945 77 From: Aleksandr Conde PCP: Dr. Corky Mensah MD Status:A DM IN Location: ICU CVICU20 4-1 HPI <JOSE Rivas - Last Filed: 04/20/23 21:31> History of Present Illness Chief Complaint: Cold Sx Narrative Narrative: Patient is a 77-year-old female with history of pulmonary embolus on Eliquis, obesity, chronic back pain, GERD who presents to the emergency department for 3 weeks of generalized illness. Patient did test positive for COVID-19 2 weeks ago. Patient has been sick for a total of 21 days. Per the family, the patientis not getting over it, she is more weak, not eating and drinking normally. Patient is usually up and active all day however has been laying in bed. The patient was not answering her phone the last 2 days, she was checked on by a friend and was in the bedroom sleeping. They are concerned and is here for evaluation. She continues to have fever and chills. PFSH <JOSE Rivas - Last Filed: 04/20/23 21:31> [facility] Medical History (Updated 04/20/23 @ 23:[address] Mariella Harris DO) Anemia Anxiety Arthritis Bladder disease Bone fracture Cardiac murmur Chronic bronchitis COVID-19 Depression DM2 (diabetes mellitus, type 2) Easy bruising Excessive bleeding Factor 5 Leiden mutation, heterozygous Fibromyalgia Flu vaccine need Former smoker Gastric reflux GERD (gastroesophageal reflux disease) Health care maintenance High cholesterol History of back problems History of DVT (deep vein thrombosis) History of hiatal hernia History of irregular heartbeat History of stress test HLD (hyperlipidemia) Left hip pain Migraine Nodular goiter Post-menopausal Pulmonary embolism Seasonal allergies Seborrheic dermatitis URI (upper respiratory infection) Wears dentures Wears glasses Wears hearing aid Home Medications vitamin E (dl, acetate) 180 mg (400 unit) capsule 400 units PO DAILY Supplement 10/13/13 [History Last Taken 08/02/20 08:00] vitamin B complex 1 tab PO DAILY supplement 10/05/18 [History Last Taken 08/02/20 08:00] pantoprazole 40 mg tablet,delayed release 40 mg PO DAILY GERD 07/05/20 [History Last Taken 08/02/20 08:00] apixaban 5 mg tablet (Eliquis) 5 mg PO BID #180 tabs 09/05/22 [Rx Last Taken Unknown] calcium gluconate 650 mg tablet 650 mg PO DAILY 09/05/22 [History Last Taken Unknown] cholecalciferol (vitamin D3) 10 mcg (400 unit) capsule 2,000 unit PO TID Supplement 09/05/22 [History Last Taken Unknown] ferrous sulfate-vitamin C 39 mg-75 mg tablet 1 tab PO DAILY 09/05/22 [History Last Taken Unknown] furosemide 40 mg tablet 40 mg PO DAILY 09/05/22 [History Last Taken Unknown] hydrocodone-acetaminophen 5-325mg 5mg-325mg 0.5 tab PO BID PRN pain 09/05/22 [History Last Taken Unknown] mirtazapine 7.5 mg tablet 7.5 mg PO QHS Sleep #90 tabs 09/05/22 [Rx Last Taken Unknown] potassium chloride 20 mEq tablet,extended release 20 meq PO DAILY 09/05/22 [History Last Taken Unknown] promethazine 25 mg tablet 25 mg PO BID PRN nausea and vomiting #90 tabs 09/05/22[Rx Last Taken Unknown] ketoconazole 2 % shampoo 1 applic topical 2XW #120 mL 03/06/23 [Rx Last Taken Unknown] denosumab 60 mg/mL subcutaneous syringe (Prolia) 60 mg subcut [id number] #1 mL 03/20/23 [Rx Last Taken Unknown] pregabalin 50 mg capsule (Lyrica) 50 mg PO Q8H Burning in left leg 03/20/23 [History Last Taken Unknown] benzonatate 200 mg capsule 200 mg PO TID PRN cough #20 caps 04/07/23 [Rx Last Taken Unknown] fluticasone propionate 50 mcg/actuation nasal spray,suspension (Flonase Allergy Relief) 2 spray intranasal DAILY #16 grams 04/16/23 [Rx Last Taken Unknown] guaifenesin 600 mg tablet, extended release 12 hr (Mucinex) 600 mg PO BID #60 tabs 04/16/23 [Rx Last Taken Unknown] albuterol sulfate 2 puff inhalation PRN shortness of breath or wheezing 04/20/23[History Last Taken Unknown] pantoprazole 40 mg granules delayed-release for susp in packet (Protonix) 40 mg PO DAILY 04/20/23 [History Last Taken Unknown] zoledronic acid 5 mg/100 mL in mannitol 5 %-water intravenous piggybck (Reclast)ea IV .QYEAR 04/20/23 [History Last Taken Unknown] Allergy/AdvReac Type Severity Reaction Status Date / Time castor oil Allergy Unknown Verified 04/20/23 20:24 frovatriptan succinate Allergy Rash Verified 04/16/23 13:49 [From Frova] Iodinated Contrast Media Allergy Vomiting Verified 04/20/23 20:24 sumatriptan [From Imitrex] Allergy Rash Verified 04/20/23 20:24 sumatriptan succinate Allergy Rash Verified 04/20/23 20:24 [From Imitrex] vitamin E (d-alpha Allergy Chest Verified 04/20/23 20:24 tocopherol) tightness ezetimibe [From Zetia] AdvReac Severe Severe GI Verified 04/20/23 20:24 upset/stomach pain levofloxacin [From Levaquin] AdvReac Intermediate pain Verified 04/20/23 20:24 Family History Father CAD (coronary artery disease) Myocardial infarction Bleeding disorder History of blood clots CVA (cerebral vascular accident) Mother Colon cancer Diabetes High cholesterol Cancer Skin Sister Psychiatric care High cholesterol Diabetes Colon cancer Brother Colon cancer High cholesterol Surgical History H/O: hysterectomy Hx of appendectomy Hx of kyphoplasty Social History Smoking Status: Former smoker alcohol intake: never substance use type: does not use what type of physical activity do you participate in: none seatbelt use: always do you feel safe at home: Yes additional social history: ROS <JOSE Rivas - Last Filed: 04/20/23 21:31> ROS ED ROS Narrative Constitutional: Negative for weight loss, weakness. Positive for fever and chills Eyes: Negative for vision loss, vision change, double vision ENT: Negative for any sore throat, ear pain, congestion Cardiovascular: Negative for any chest pain, tightness, palpitations Respiratory: Negative for any sputum production, hemoptysis, dyspnea, dyspnea on exertion, orthopnea. Positive for cough Gastrointestinal: Negative for any abdominal pain,vomiting, diarrhea, constipation, blood in stool, blood in vomit. Positive for nausea : Negative for any urinary frequency, dysuria, retention, blood in urine Muscle skeletal: Negative for any arthralgias, neck pain, back pain. Positive for myalgias Neurological: Negative for any syncope, paresthesias, dizziness. Positive for headache Skin: Negative for any rashes, lumps, itching, abrasions, lacerations Psychiatric: Negative for any depression, anxiety, stress, suicidal ideation, homicidal ideation Hematologic: Negative for any easy bruising, excessive bruising, easy bleeding Allergies: Negative for any eczema, hives, rash EXAM <JOSE Rivas - Last Filed: 04/20/23 21:31> Physical Exam Narrative Exam Narrative: Vital signs reviewed. Patient does appear to not feel well. Upon physical examination, patient does appear dry HEET: Head normocephalic atraumatic, TMs clear bilaterally. Posterior pharynx is clear, dry mucous membranes. Nares clear bilaterally. Neck: Supple with no lymphadenopathy or tenderness. No signs of meningismus. Cardiac: Regular rate and rhythm systolic murmur, no gallops or rubs, equal peripheral pulses bilaterally. Respiratory: Patient had slight crackles to the mid to lower left lobe.. No chest tenderness. Abdomen: Soft, nontender, nondistended. No abdominal bruit or pulsatile masses. No hepatosplenomegaly Extremities: No peripheral edema, no signs of gross trauma or deformity. Activefull range of motion of all extremities. Neuro: Cranial nerves II through XII intact, no focal neurological deficits. Skin: Clean dry and intact with no rash, purpura, petechiae, vesicles or pustules. Backs/flank: No CVA tenderness, no midline spinal tenderness, no deformity. Psych: Normal mood and affect. No SI, HI or acute psychosis. Const Vital Signs: 04/20/23 20:17 04/20/23 20:37 04/20/23 21:21 Temperature 99.5 F H 98.2 F Temperature Source Oral Oral Pulse Rate 86 90 Respiratory Rate 18 25 H Respiratory Effort Short of Breath Respiratory Pattern Normal Blood Pressure 144/75 H 103/61 Blood Pressure Mean 98 75 Pulse Ox 94 98 Oxygen Delivery Method Room Air Nasal Cannula Oxygen Flow Rate (L/min) 2 04/20/23 20:41 04/20/23 22:00 04/20/23 20:37 Temperature 98.6 F Temperature Source Oral Pulse Rate 85 87 Respiratory Rate 22 H 20 H Respiratory Effort Respiratory Pattern Blood Pressure 123/88 H Blood Pressure Mean 99 Pulse Ox 96 94 Oxygen Delivery Method Room Air Nasal Cannula Oxygen Flow Rate (L/min) 2 04/20/23 20:40 04/20/23 20:45 04/20/23 20:50 Temperature Temperature Source Pulse Rate 83 84 80 Respiratory Rate 20 H 19 H 23 H Respiratory Effort Respiratory Pattern Blood Pressure 131/70 H Blood Pressure Mean 79 Pulse Ox 94 92 93 Oxygen Delivery Method Oxygen Flow Rate (L/min) 04/20/23 21:00 04/20/23 21:10 04/20/23 21:15 Temperature Temperature Source Pulse Rate 83 Respiratory Rate 17 Respiratory Effort Respiratory Pattern Blood Pressure 149/60 H 103/61 Blood Pressure Mean 86 69 Pulse Ox 90 Oxygen Delivery Method Oxygen Flow Rate (L/min) 04/20/23 21:20 04/20/23 21:30 04/20/23 21:40 Temperature Temperature Source Pulse Rate 84 86 84 Respiratory Rate 21 H 21 H 26 H Respiratory Effort Respiratory Pattern Blood Pressure 135/67 H Blood Pressure Mean 83 Pulse Ox 88 87 97 Oxygen Delivery Method Room Air Nasal Cannula Oxygen Flow Rate (L/min) 2 04/20/23 21:45 04/20/23 21:45 04/20/23 21:57 Temperature Temperature Source Pulse Rate 82 88 Respiratory Rate 26 H 21 H Respiratory Effort Respiratory Pattern Blood Pressure 135/57 H 135/57 H Blood Pressure Mean 79 79 Pulse Ox 97 96 Oxygen Delivery Method Nasal Cannula Oxygen Flow Rate (L/min) 2 04/20/23 22:00 04/20/23 22:11 04/20/23 22:15 Temperature Temperature Source Pulse Rate 85 89 85 Respiratory Rate 22 H 10 L 25 H Respiratory Effort Respiratory Pattern Blood Pressure 123/58 H 125/61 H Blood Pressure Mean 74 81 Pulse Ox 96 96 96 Oxygen Delivery Method Nasal Cannula Oxygen Flow Rate (L/min) 2 04/20/23 23:00 04/20/23 22:20 04/20/23 22:30 Temperature 98.3 F Temperature Source Oral Pulse Rate 83 87 86 Respiratory Rate 24 H 25 H 17 Respiratory Effort Respiratory Pattern Blood Pressure 119/58 L 125/63 H Blood Pressure Mean 78 82 Pulse Ox 96 96 97 Oxygen Delivery Method Room Air Oxygen Flow Rate (L/min) 2 04/20/23 22:40 04/20/23 22:45 04/20/23 22:50 Temperature Temperature Source Pulse Rate 83 77 Respiratory Rate 22 H 24 H Respiratory Effort Respiratory Pattern Blood Pressure 124/63 H Blood Pressure Mean 73 Pulse Ox 96 96 Oxygen Delivery Method Oxygen Flow Rate (L/min) 04/20/23 23:00 04/20/23 23:10 04/20/23 23:15 Temperature Temperature Source Pulse Rate 83 77 74 Respiratory Rate 24 H 23 H 25 H Respiratory Effort Respiratory Pattern Blood Pressure 119/58 L 122/60 H Blood Pressure Mean 76 79 Pulse Ox 96 96 96 Oxygen Delivery Method Nasal Cannula Oxygen Flow Rate (L/min) 2 04/20/23 23:20 04/20/23 23:30 04/20/23 23:38 Temperature Temperature Source Pulse Rate 77 79 Respiratory Rate 24 H 18 Respiratory Effort Respiratory Pattern Blood Pressure 118/60 Blood Pressure Mean 78 Pulse Ox 96 96 Oxygen Delivery Method Oxygen Flow Rate (L/min) 04/20/23 23:40 04/20/23 23:45 04/20/23 23:50 Temperature Temperature Source Pulse Rate 80 73 78 Respiratory Rate 22 H 25 H 23 H Respiratory Effort Respiratory Pattern Blood Pressure 130/57 H Blood Pressure Mean 75 Pulse Ox 96 95 96 Oxygen Delivery Method Oxygen Flow Rate (L/min) Positive well nourished <Dr. Aleksandr Anderson, DO - Last Filed: 04/21/23 00:29> Physical Exam Const Vital Signs: 04/20/23 20:17 04/20/23 20:37 04/20/23 21:21 Temperature 99.5 F H 98.2 F Temperature Source Oral Oral Pulse Rate 86 90 Respiratory Rate 18 25 H Respiratory Effort Short of Breath Respiratory Pattern Normal Blood Pressure 144/75 H 103/61 Blood Pressure Mean 98 75 Pulse Ox 94 98 Oxygen Delivery Method Room Air Nasal Cannula Oxygen Flow Rate (L/min) 2 04/20/23 20:41 04/20/23 22:00 04/20/23 20:37 Temperature 98.6 F Temperature Source Oral Pulse Rate 85 87 Respiratory Rate 22 H 20 H Respiratory Effort Respiratory Pattern Blood Pressure 123/88 H Blood Pressure Mean 99 Pulse Ox 96 94 Oxygen Delivery Method Room Air Nasal Cannula Oxygen Flow Rate (L/min) 2 04/20/23 20:40 04/20/23 20:45 04/20/23 20:50 Temperature Temperature Source Pulse Rate 83 84 80 Respiratory Rate 20 H 19 H 23 H Respiratory Effort Respiratory Pattern Blood Pressure 131/70 H Blood Pressure Mean 79 Pulse Ox 94 92 93 Oxygen Delivery Method Oxygen Flow Rate (L/min) 04/20/23 21:00 04/20/23 21:10 04/20/23 21:15 Temperature Temperature Source Pulse Rate 83 Respiratory Rate 17 Respiratory Effort Respiratory Pattern Blood Pressure 149/60 H 103/61 Blood Pressure Mean 86 69 Pulse Ox 90 Oxygen Delivery Method Oxygen Flow Rate (L/min) 04/20/23 21:20 04/20/23 21:30 04/20/23 21:40 Temperature Temperature Source Pulse Rate 84 86 84 Respiratory Rate 21 H 21 H 26 H Respiratory Effort Respiratory Pattern Blood Pressure 135/67 H Blood Pressure Mean 83 Pulse Ox 88 87 97 Oxygen Delivery Method Room Air Nasal Cannula Oxygen Flow Rate (L/min) 2 04/20/23 21:45 04/20/23 21:45 04/20/23 21:57 Temperature Temperature Source Pulse Rate 82 88 Respiratory Rate 26 H 21 H Respiratory Effort Respiratory Pattern Blood Pressure 135/57 H 135/57 H Blood Pressure Mean 79 79 Pulse Ox 97 96 Oxygen Delivery Method Nasal Cannula Oxygen Flow Rate (L/min) 2 04/20/23 22:00 04/20/23 22:11 04/20/23 22:15 Temperature Temperature Source Pulse Rate 85 89 85 Respiratory Rate 22 H 10 L 25 H Respiratory Effort Respiratory Pattern Blood Pressure 123/58 H 125/61 H Blood Pressure Mean 74 81 Pulse Ox 96 96 96 Oxygen Delivery Method Nasal Cannula Oxygen Flow Rate (L/min) 2 04/20/23 23:00 04/20/23 22:20 04/20/23 22:30 Temperature 98.3 F Temperature Source Oral Pulse Rate 83 87 86 Respiratory Rate 24 H 25 H 17 Respiratory Effort Respiratory Pattern Blood Pressure 119/58 L 125/63 H Blood Pressure Mean 78 82 Pulse Ox 96 96 97 Oxygen Delivery Method Room Air Oxygen Flow Rate (L/min) 2 04/20/23 22:40 04/20/23 22:45 04/20/23 22:50 Temperature Temperature Source Pulse Rate 83 77 Respiratory Rate 22 H 24 H Respiratory Effort Respiratory Pattern Blood Pressure 124/63 H Blood Pressure Mean 73 Pulse Ox 96 96 Oxygen Delivery Method Oxygen Flow Rate (L/min) 04/20/23 23:00 04/20/23 23:10 04/20/23 23:15 Temperature Temperature Source Pulse Rate 83 77 74 Respiratory Rate 24 H 23 H 25 H Respiratory Effort Respiratory Pattern Blood Pressure 119/58 L 122/60 H Blood Pressure Mean 76 79 Pulse Ox 96 96 96 Oxygen Delivery Method Nasal Cannula Oxygen Flow Rate (L/min) 2 04/20/23 23:20 04/20/23 23:30 04/20/23 23:38 Temperature Temperature Source Pulse Rate 77 79 Respiratory Rate 24 H 18 Respiratory Effort Respiratory Pattern Blood Pressure 118/60 Blood Pressure Mean 78 Pulse Ox 96 96 Oxygen Delivery Method Oxygen Flow Rate (L/min) 04/20/23 23:40 04/20/23 23:45 04/20/23 23:50 Temperature Temperature Source Pulse Rate 80 73 78 Respiratory Rate 22 H 25 H 23 H Respiratory Effort Respiratory Pattern Blood Pressure 130/57 H Blood Pressure Mean 75 Pulse Ox 96 95 96 Oxygen Delivery Method Oxygen Flow Rate (L/min) QUITA <JOSE Rivas - Last Filed: 04/20/23 21:31> [facility] Lab Data Labs: Laboratory Results - last 24 hr 04/20/23 04/20/23 19:37 22:14 WBC 12.9 H RBC 3.95 L Hgb 12.5 Hct 37.5 MCV 94.9 MCH 31.6 MCHC 33.3 RDW Std Deviation 44.1 H RDW Coeff of Mallika 12.6 Plt Count 243 MPV 10.8 Immature Gran % (Auto) 0.400 Neut % (Auto) 76.5 H Lymph % (Auto) 16.0 L Kimball % (Auto) 6.9 Eos % (Auto) 0.1 Baso % (Auto) 0.1 Absolute Neuts (auto) 9.9 H Absolute Lymphs (auto) 2.07 Nucleated RBC % 0 Sodium 134 L Potassium 3.8 Chloride 102 Carbon Dioxide 25.0 Anion Gap 7 BUN 11 Creatinine 0.71 Estim Creat Clear Calc 49.68 Est GFR (MDRD) Af Amer 103 Est GFR (MDRD) Non-Af 85 BUN/Creatinine Ratio 15.6 Glucose 99 Calcium 8.8 Troponin I High Sens 8 Urine Color Yellow Urine Clarity Clear Urine pH 7.0 Ur Specific Bertha 1.010 Urine Protein 15 H Urine Glucose (UA) Normal Urine Ketones 15 H Urine Occult Blood 25 H Urine Nitrite Negative Urine Bilirubin Negative Urine Urobilinogen Normal Ur Leukocyte Esterase Negative Urine RBC 0 SEEN Urine WBC 0 SEEN Ur Squamous Epith Cells 0 SEEN Urine Bacteria 0 SEEN Urine Mucus 0 SEEN Radiography Diagnostic Testing: Clinical Impression(s) from Imaging Studies Chest X-Ray 04/20/23 21:20 IMPRESSION: No acute cardiopulmonary disease. Electronically Signed: Michele Casper MD at 22:26 EST , Brain CT 04/20/23 21:30 IMPRESSION: Negative head/brain CT without intravenous contrast. AIDOC was utilized to assist in identifying pertinent positive findings. Electronically Signed: Michele Casper MD at 22:46 EST , Treatment and Re-Evaluation :: Patient appears to be unwell appearing, vital signs do appear stable, patient isnot hypoxic. Presenting to the emergency department with complaints of ongoing fever, chills, cough. Patient's continues to have fever and chills and has beensick for greater than 3 weeks. Differential diagnose includes community-acquired pneumonia, UTI, dehydration, electrolyte abnormality, ACS or MA. Patient will receive laboratory values, including a troponin. Patient will receive a two-view chest x-ray looking for any pneumonia. Patient will be given1 L of normal saline while Zofran and Tylenol. Patient currently does have chills. Patient will receive a respiratory panel. All radiologic examinations were read, reviewed by the emergency department attending. From these reads, a plan of care will be put in place. <Dr. Aleksandr Anderson, DO - Last Filed: 04/21/23 00:29> [facility] History & Record Review Discussion w/independent historian: Patient and Family Lab Data Attestation: I reviewed the patient's lab results. Labs: Laboratory Results - last 24 hr 04/20/23 04/20/23 19:37 22:14 WBC 12.9 H RBC 3.95 L Hgb 12.5 Hct 37.5 MCV 94.9 MCH 31.6 MCHC 33.3 RDW Std Deviation 44.1 H RDW Coeff of Mallika 12.6 Plt Count 243 MPV 10.8 Immature Gran % (Auto) 0.400 Neut % (Auto) 76.5 H Lymph % (Auto) 16.0 L Kimball % (Auto) 6.9 Eos % (Auto) 0.1 Baso % (Auto) 0.1 Absolute Neuts (auto) 9.9 H Absolute Lymphs (auto) 2.07 Nucleated RBC % 0 Sodium 134 L Potassium 3.8 Chloride 102 Carbon Dioxide 25.0 Anion Gap 7 BUN 11 Creatinine 0.71 Estim Creat Clear Calc 49.68 Est GFR (MDRD) Af Amer 103 Est GFR (MDRD) Non-Af 85 BUN/Creatinine Ratio 15.6 Glucose 99 Calcium 8.8 Troponin I High Sens 8 Urine Color Yellow Urine Clarity Clear Urine pH 7.0 Ur Specific Bertha 1.010 Urine Protein 15 H Urine Glucose (UA) Normal Urine Ketones 15 H Urine Occult Blood 25 H Urine Nitrite Negative Urine Bilirubin Negative Urine Urobilinogen Normal Ur Leukocyte Esterase Negative Urine RBC 0 SEEN Urine WBC 0 SEEN Ur Squamous Epith Cells 0 SEEN Urine Bacteria 0 SEEN Urine Mucus 0 SEEN Radiography Diagnostic Testing: Clinical Impression(s) from Imaging Studies Chest X-Ray 04/20/23 21:20 IMPRESSION: No acute cardiopulmonary disease. Electronically Signed: Michele Casper MD at 22:26 EST , Brain CT 04/20/23 21:30 IMPRESSION: Negative head/brain CT without intravenous contrast. AIDOC was utilized to assist in identifying pertinent positive findings. Electronically Signed: Michele Casper MD at 22:46 EST , Treatment and Re-Evaluation :: Patient appears to be unwell appearing, vital signs do appear stable, patient isnot hypoxic. Presenting to the emergency department with complaints of ongoing fever, chills, cough. Patient's continues to have fever and chills and has beensick for greater than 3 weeks. Differential diagnose includes community-acquired pneumonia, UTI, dehydration, electrolyte abnormality, ACS or MA. Patient will receive laboratory values, including a troponin. Patient will receive a two-view chest x-ray looking for any pneumonia. Patient will be given1 L of normal saline while Zofran and Tylenol. Patient currently does have chills. Patient will receive a respiratory panel. All radiologic examinations were read, reviewed by the emergency department attending. From these reads, a plan of care will be put in place. I have personally performed a face to face assessment of the patient and have reviewed the SAMANTHA Note. I performed a substantive portion of the visit including all aspects of the following. My andrade findings include: History is 77-year-old female contracted COVID towards the middle of March along with most of her family members. She continues to have a lingering cough and has been experiencing some nausea. Does report that she took some Phenerganand Tylenol like she had some slurred speech and that that Tylenol did not agree with her. Family states that the past couple days she has been in bed and today did not really get out of bed due to weakness. Patient notes that sheis feeling very shaky and sweaty before arrival. Patient is on apixaban for factor V and history of DVT. Exam is patient appears to have rigors she is diaphoretic. She appears very frail. This is in contrast to the family's description of a very active independent female. Lung sounds are basically clear. She appears to have dry mucous membranes. Medical Decison Making not seen an obvious source for the patient's infection. I sent a viral panel off. She did start to have some hypoxia is not requiring some nasal cannula. My initial impression of the chest x-ray is no acute process. Final CT of the chest read is not back. But I do not see an obvious infiltrate. She does have a slightly elevated white count and left shift. We obtained blood cultures lactic acid. In speaking with the hospitalist made shared decision making and administered Rocephin azithromycin. Plan and will be admission. Discharge Plan Triage Chief Complaint: Cold Sx ED Midlevel Provider: Jose E Castro ED Provider: Aleksandr Anderson Dx/Rx/DC Orders Primary Care Provider: Corky Mensah What to do if you have Problems For any increased pain, shortness of breath, bleeding, nausea or vomiting, chestpain, or any unexpected problems, contact your Primary Care Provider. Call [facility] ([phone]) or report to the closest Emergency Room. Call 911 if necessary. 04/21/23 0041 <Electronically signed by Aleksandr Anderson DO> Cosigner Signature (if applicable): 04/20/232130 <Electronically signed by Jose E Castro MARRIAGE AND FAMILY TEACHER-C> CC: Dr. Corky Mensah MD ~ Signed [facility] Work Phone: 1(575) 933-678612-14-2022 NoteHospitalist Discharge Summary Carl Louis : 1945 Admit date: 02/27/2022 Discharge date: 03/05/2022 Admitting Physician: Sagar Ying MD Primary Care Physician: No primary [...] HYDROcodone-acetaminophen 5-325 MG tablet Commonly known as: Otis warfarin 1 MG tablet Commonly known as: [...] Complexity: follow up within 7-14 calendar days (92941) [x] Severe Complexity: follow up within 7 calendar days (20115) Follow up Testing, Pending results or Referrals [...] frame. Signed: Ken Patten MD [facility] [place] 03/05/2022[facility]12-13-2022 NoteHospitalist Progress Note 03/04/2022 Subjective: Admit Date: 02/27/2022 PCP: No primary care provider on file. Room#: -6108/-4318 A Interval History: No overnight issues. Up [...] Bianca Clark DO, 1,000 mg at 03/04/22 0842 cholecalciferol (Vitamin D-3) tablet 50 mcg, [...] tablet 37.5 mg, 37.5 mg, Oral, Nightly, Red Hendricks APRN - ELECTRICAL ASSISTANT, 37.5 mg at 03/03/222047 ondansetron ODT (Zofran-ODT) [...] MD Division of Hospitalist Medicine Inpatient Medical Services/[facility]12-08-2022 Note Attestation signed by Kristin Saenz at [...] didn't), for which patient was transferred to [facility] ICU. PLAN: 1. Neuro/Spine: 13cm spinal [...] Renal: normal renal function, allen placed at [facility] --> discontinue allen 6. Hem: Factor V Leiden on coumadin, history of remote DVT/PE - received Kcentra at [facility] --> INR 2 -> 1.1 - will [...] MD Division of Trauma Department of Surgery [facility] Pager: [phone] Kristin Saenz MD Division of Trauma Department of Surgery [facility] Pager: [phone] [facility] H&P 02/27/2022 6:12 AM Attending: Dr. Ying Level of Initial Activation: Direct Admit Upgraded: No To:N/A Mechanism of Arrival:Transfer from [facility] ED Chief Complaint: back pain History of Traumatic Injury: 76 year old female with history of factor V Leiden, hx of DVT and PE on coumadin presents as an emergent transfer from [facility] ED to [facility] ICU [...] experienced any of the following: fever, cough, [id number], myalgias, loss of taste/smell, diarreha/GI symptoms? No [...] Highest education level: No (more content not included)...[facility] SHSEvaluation noteNo assessment information availableWCorey Hospital Work Phone: Evaluation note* Diagnosis Onset Date Resolution Status Flu vaccine need acute GERD (gastroesophageal reflux disease) chronic Left hip pain chronic Osteoporosis chronic Seborrheic dermatitis chroni c [facility] Work Phone: Evaluation note* Diagnosis Onset Date Resolution Status Flu vaccine need acute GERD (gastroesophageal reflux disease) chronic Left hip pain chronic Osteoporosis chronic Seborrheic dermatitis chroni c Osteoporosis chronic COVID-19 acute URI (upper respiratory infection) acute Acute hypoxemic respiratory failure acute Chronic anticoagulation acut e Debility acute Fever acute Fever of unknown origin acut e Generalized weakness acute Hypoxia acute Leukocytosis acute [facility] Work Phone: Evaluation note* Diagnosis Onset Date Resolution Status Flu vaccine need acute GERD (gastroesophageal reflux disease) chronic Left hip pain chronic Osteoporosis chronic Seborrheic dermatitis chroni c Osteoporosis chronic COVID-19 acute URI (upper respiratory infection) acute Chronic anticoagulation acut e Acute hypoxemic respiratory failure resolved COVID-19 acute Diplopia acute Acute hypoxemic respiratory failure resolved Chronic anticoagulation acut e Nocturnal hypoxemia acute Borderline diabetes chronic Depression chronic Osteoporosis [facility] Work Phone: Evaluation note* Diagnosis Onset Date Resolution Status COVID-19 acute URI (upper respiratory infection) acute Chronic anticoagulation acut e Acute hypoxemic respiratory failure resolved COVID-19 acute Diplopia acute Acute hypoxemic respiratory failure resolved Chronic anticoagulation acut e Nocturnal hypoxemia acute Borderline diabetes chronic Depression chronic Osteoporosis chronic Suprapubic fullness acute [facility] Work Phone: Evaluation note* Diagnosis Onset Date Resolution Status Admit Date Hematuria acute November 12:51pm History of hip fracture acute S eptember 2024 12:51pm Borderline diabetes chronic Septe mber 2024 12:51pm Depression chronic November 12:51pm Osteoporosis chronic December 092024 12:51pm [facility] Work Phone: History and physical note Author Mariella Harris [facility] April 21, 2023 12:48am Note Date/Time April 20, 2023 1 1:24pm [facility] Medical Records Department [address] [place] [id number] H&P Exam - Hospitalist 04/20/23 2318 MR#: [id number] Acct: [id number] Name: CARL LOUIS Rep #:[id number] : 1945 77 From: Mariella Harris DO PCP: Dr. Corky Mensah MD Status:A DM IN Location: ICU CVICU20 4-1 HPI - General General Date of Admission: 04/21/23 Date of Service: 04/21/23 Chief Complaint: Fatigue/generalized weakness HPI Narrative CARL LOUIS, is a 77 F who presented to the emergency department at [facility] on 04/20/2023 with a chief complaint of generalized weakness/debility. The patient was diagnosed with COVID-19 infection on 04/07/2023 and was treated with Decadron and Tessalon Perles along with supportive measures by an urgent care. She was not treated with Paxlovid at that time. She was reevaluated by her primary care physician on 04/16/2023 at which time her main concern was ongoing nasal congestion and fatigue along with generalized weakness and feeling unwell. She had no recorded fevers or tachycardia and denied shortness of breath at that time. She had nausea previously but that had been reported to be improving. Post COVID fatigue was considered to be the most likely issue and she was given Flonase and Mucinex and instructedto call if she got worse or develops any new symptoms. Upon presentation today she is complaining of ongoing nasal congestion, headache, fatigue, generalized weakness, and decreased oral intake. She states that she has no real sense of smell or taste and this is affecting her appetite considerably. She has ongoingcough with sputum production of clear sputum. She is having chills at home but has not yet documented a fever however her temperature was 99.5 on arrival here and per discussion with the emergency department physician she was diaphoretic and felt warm. Evidently the patient is very active and up. However, she has been lying in bed only all day and had not been answering her phone for the last2 days. Family friend checked on her and she was found to be sleeping in the bedroom. Given their concerns of the above she was brought to the emergency department for further evaluation. Vital signs on presentation showed a temperature of 99.5, heart rate was 86, blood pressure was 144/75, respiratory rate has been between 18 and 25 and oxygen saturations were initially 94% on room air however she has desatted to 87on room air and was placed on 2 L nasal cannula. Since being placed on oxygen her sats have been between 96 to 98%. Her CBC shows a mild leukocytosis with a white count of 12.9 and a left shift with a 76.5% neutrophilia. She has mild hyponatremia with a sodium of 134. Her BUN and creatinine are normal. Troponinwas normal at 8. UA is not consistent with infection. Lactic acid was pending on admission. Chest x-ray demonstrated no acute cardiopulmonary processes. EKGshowed a right bundle branch block with no interval abnormalities and no ST-T wave changes concerning for acute ischemia. CT of the brain was unremarkable. CT of the chest showed no significant pneumonia but did show a small to moderatepericardial effusion, large hiatal hernia and other chronic findings. She did appear to have bronchiectasis upon my review and some scattered patchy infiltrates. Respiratory viral panel was pending at the time of admission and blood cultures were ordered and pending as well. She was started on ceftriaxone and azithromycin without another source being identified and request for admission was made. [facility] Medical History Anemia Anxiety Arthritis Bladder disease Bone fracture Cardiac murmur Chronic bronchitis COVID-19 Depression DM2 (diabetes mellitus, type 2) Easy bruising Excessive bleeding Factor 5 Leiden mutation, heterozygous Fibromyalgia Flu vaccine need Former smoker Gastric reflux GERD (gastroesophageal reflux disease) Health care maintenance High cholesterol History of back problems History of DVT (deep vein thrombosis) History of hiatal hernia History of irregular heartbeat History of stress test HLD (hyperlipidemia) Left hip pain Migraine Nodular goiter Post-menopausal Pulmonary embolism Seasonal allergies Seborrheic dermatitis URI (upper respiratory infection) Wears dentures Wears glasses Wears hearing aid Home Medications vitamin E (dl, acetate) 180 mg (400 unit) capsule 400 units PO DAILY Supplement 10/13/13 [History Last Taken 08/02/20 08:00] vitamin B complex 1 tab PO DAILY supplement 10/05/18 [History Last Taken 08/02/20 08:00] pantoprazole 40 mg tablet,delayed release 40 mg PO DAILY GERD 07/05/20 [History Last Taken 08/02/20 08:00] apixaban 5 mg tablet (Eliquis) 5 mg PO BID #180 tabs 09/05/22 [Rx Last Taken Unknown] calcium gluconate 650 mg tablet 650 mg PO DAILY 09/05/22 [History Last Taken Unknown] cholecalciferol (vitamin D3) 10 mcg (400 unit) capsule 2,000 unit PO TID Supplement 09/05/22 [History Last Taken Unknown] ferrous sulfate-vitamin C 39 mg-75 mg tablet 1 tab PO DAILY 09/05/22 [History Last Taken Unknown] furosemide 40 mg tablet 40 mg PO DAILY 09/05/22 [History Last Taken Unknown] hydrocodone-acetaminophen 5-325mg 5mg-325mg 0.5 tab PO BID PRN pain 09/05/22 [History Last Taken Unknown] mirtazapine 7.5 mg tablet 7.5 mg PO QHS Sleep #90 tabs 09/05/22 [Rx Last Taken Unknown] potassium chloride 20 mEq tablet,extended release 20 meq PO DAILY 09/05/22 [History Last Taken Unknown] promethazine 25 mg tablet 25 mg PO BID PRN nausea and vomiting #90 tabs 09/05/22[Rx Last Taken Unknown] ketoconazole 2 % shampoo 1 applic topical 2XW #120 mL 03/06/23 [Rx Last Taken Unknown] denosumab 60 mg/mL subcutaneous syringe (Prolia) 60 mg subcut [id number] #1 mL 03/20/23 [Rx Last Taken Unknown] pregabalin 50 mg capsule (Lyrica) 50 mg PO Q8H Burning in left leg 03/20/23 [History Last Taken Unknown] benzonatate 200 mg capsule 200 mg PO TID PRN cough #20 caps 04/07/23 [Rx Last Taken Unknown] fluticasone propionate 50 mcg/actuation nasal spray,suspension (Flonase Allergy Relief) 2 spray intranasal DAILY #16 grams 04/16/23 [Rx Last Taken Unknown] guaifenesin 600 mg tablet, extended release 12 hr (Mucinex) 600 mg PO BID #60 tabs 04/16/23 [Rx Last Taken Unknown] albuterol sulfate 2 puff inhalation PRN shortness of breath or wheezing 04/20/23[History Last Taken Unknown] pantoprazole 40 mg granules delayed-release for susp in packet (Protonix) 40 mg PO DAILY 04/20/23 [History Last Taken Unknown] zoledronic acid 5 mg/100 mL in mannitol 5 %-water intravenous piggybck (Reclast)ea IV .QYEAR 04/20/23 [History Last Taken Unknown] Allergy/AdvReac Type Severity Reaction Status Date / Time castor oil Allergy Unknown Verified 04/20/23 20:24 frovatriptan succinate Allergy Rash Verified 04/16/23 13:49 [From Frova] Iodinated Contrast Media Allergy Vomiting Verified 04/20/23 20:24 sumatriptan [From Imitrex] Allergy Rash Verified 04/20/23 20:24 sumatriptan succinate Allergy Rash Verified 04/20/23 20:24 [From Imitrex] vitamin E (d-alpha Allergy Chest Verified 04/20/23 20:24 tocopherol) tightness ezetimibe [From Zetia] AdvReac Severe Severe GI Verified 04/20/23 20:24 upset/stomach pain levofloxacin [From Levaquin] AdvReac Intermediate pain Verified 04/20/23 20:24 Family History Father CAD (coronary artery disease) Myocardial infarction Bleeding disorder History of blood clots CVA (cerebral vascular accident) Mother Colon cancer Diabetes High cholesterol Cancer Skin Sister Psychiatric care High cholesterol Diabetes Colon cancer Brother Colon cancer High cholesterol Surgical History H/O: hysterectomy Hx of appendectomy Hx of kyphoplasty Social History (Updated 04/21/23 @ 00:[address] Mariella Harris, ) household members: none housing: house Smoking Status: Former smoker alcohol intake: never substance use type: does not use what type of physical activity do you participate in: none seatbelt use: always do you feel safe at home: Yes additional social history: , ambulates independently without an assistive device ROS Constitutional Constitutional: Reports anorexia, chills, fatigue, fever(s), malaise and weakness; Denies change in weight, night sweats or other Eyes Eyes: Denies blurry vision, change in eye color, change in vision, discharge from eye(s), double vision, erythema, eye pain, loss of vision or other ENT HEENT: Reports headache(s), nasal congestion, sinus pressure and other Details: Dysgeusia, anosmia ; Denies abnormal hearing, dysphagia, ear pain, epistaxis, hearing loss, nasal discharge, post nasal drip or sore throat Cardiovascular Cardiovascular: Denies chest pain, claudication, dyspnea on exertion, edema, lightheadedness, orthopnea, palpitations, paroxysmal nocturnal dyspnea, rapid heart rate, syncope or other Respiratory/Chest Respiratory/Chest: Reports cough, excessive phlegm production and productive cough; Denies dyspnea, hemoptysis, shortness of breath at rest, shortness of breath with exertion, wheezing or other Gastrointestinal Gastrointestinal: Reports other Details: Decreased appetite ; Denies abdominal pain, coffee ground emesis, constipation, diarrhea, dyspepsia, hematemesis, hematochezia, loose stools, melena, nausea or vomiting Genitourinary Genitourinary: Denies burning urination, difficulty urinating, dysuria, hematuria, nocturia, urinary frequency, urinary hesitancy, urinary incontinence,urinary urgency or other Musculoskeletal Musculoskeletal: Denies arthralgias, back pain, joint pain, joint stiffness, joint swelling, myalgias, neck pain or other Neurologic Neurologic: Denies abnormal gait, abnormal speech, confusion, disequilibrium, dizziness, focal weakness, headache(s), numbness, paresthesias, seizure-like activity, seizures, syncope, tingling, tremor(s) or other Psychiatric Psychiatric: Denies anxiety, depression, homicidal ideation, suicidal ideation or other Endocrine Endocrinology: Denies change in body appearance, cold intolerance, excessive sweating, heat intolerance, polydipsia, polyuria or other Hematologic/Lymphatic Hematologic/Lymphatic: Reports easy bleeding and easy bruising; Denies anemia, lymphadenopathy or other Vital Signs Vital Signs Vital Signs: 04/20/23 20:17 04/20/23 20:37 04/20/23 21:21 Temperature 99.5 F H 98.2 F Temperature Source Oral Oral Pulse Rate 86 90 Respiratory Rate 18 25 H Respiratory Effort Short of Breath Respiratory Pattern Normal Blood Pressure 144/75 H 103/61 Blood Pressure Mean 98 75 Pulse Ox 94 98 Oxygen Delivery Method Room Air Nasal Cannula Oxygen Flow Rate (L/min) 2 04/20/23 20:41 04/20/23 22:00 04/20/23 20:37 Temperature 98.6 F Temperature Source Oral Pulse Rate 85 87 Respiratory Rate 22 H 20 H Respiratory Effort Respiratory Pattern Blood Pressure 123/88 H Blood Pressure Mean 99 Pulse Ox 96 94 Oxygen Delivery Method Room Air Nasal Cannula Oxygen Flow Rate (L/min) 2 04/20/23 20:40 04/20/23 20:45 04/20/23 20:50 Temperature Temperature Source Pulse Rate 83 84 80 Respiratory Rate 20 H 19 H 23 H Respiratory Effort Respiratory Pattern Blood Pressure 131/70 H Blood Pressure Mean 79 Pulse Ox 94 92 93 Oxygen Delivery Method Oxygen Flow Rate (L/min) 04/20/23 21:00 04/20/23 21:10 04/20/23 21:15 Temperature Temperature Source Pulse Rate 83 Respiratory Rate 17 Respiratory Effort Respiratory Pattern Blood Pressure 149/60 H 103/61 Blood Pressure Mean 86 69 Pulse Ox 90 Oxygen Delivery Method Oxygen Flow Rate (L/min) 04/20/23 21:20 04/20/23 21:30 04/20/23 21:40 Temperature Temperature Source Pulse Rate 84 86 84 Respiratory Rate 21 H 21 H 26 H Respiratory Effort Respiratory Pattern Blood Pressure 135/67 H Blood Pressure Mean 83 Pulse Ox 88 87 97 Oxygen Delivery Method Room Air Nasal Cannula Oxygen Flow Rate (L/min) 2 04/20/23 21:45 04/20/23 21:45 04/20/23 21:57 Temperature Temperature Source Pulse Rate 82 88 Respiratory Rate 26 H 21 H Respiratory Effort Respiratory Pattern Blood Pressure 135/57 H 135/57 H Blood Pressure Mean 79 79 Pulse Ox 97 96 Oxygen Delivery Method Nasal Cannula Oxygen Flow Rate (L/min) 2 04/20/23 22:00 04/20/23 22:11 04/20/23 22:15 Temperature Temperature Source Pulse Rate 85 89 85 Respiratory Rate 22 H 10 L 25 H Respiratory Effort Respiratory Pattern Blood Pressure 123/58 H 125/61 H Blood Pressure Mean 74 81 Pulse Ox 96 96 96 Oxygen Delivery Method Nasal Cannula Oxygen Flow Rate (L/min) 2 Weight Weight: 67.5 kg Body Mass Index (BMI) 31.1 Physical Exam Const alert, oriented x3, no apparent distress and well nourished Constitutional Narrative: Obese, elderly female, lying in bed, appears if she does not feel well however does not appear toxic at this time, friend at bedside, appears comfortable General Appearance: cooperative HEENT normocephalic, head/scalp atraumatic and moist oral mucous membranes HEENT Narrative: Mallampati 2-3, no thrush, moderate hearing loss Eyes PERRL, EOMs intact bilaterally and conjunctivae normal Eyes Narrative: No scleral icterus Neck no lymphadenopathy and supple Neck Narrative: Trachea midline, no thyroid enlargement Resp normal respiratory effort, no retractions, no use of accessory muscles and No clear to auscultation bilaterally Resp Narrative: Scattered end expiratory wheeze in the right base Auscultation: wheezes; Negative for rales or rhonchi Cardio regular rate, regular rhythm, S1 normal heart sound, S2 normal heart sound, no murmurs, no rub, no gallops and no clicks GI normal to inspection, nondistended, normoactive bowel sounds, soft to palpation and non-tender Extremity no clubbing, cyanosis or edema Extremity Narrative: Pedal pulses are 2+ Neuro oriented x3, moves all extremities and no focal motor deficits Neuro Narrative: Significant generalized weakness noted with proximal musculature being weaker than distal Speech: speech normal Psych Psych Narrative: Affect is flat, eye contact is good, no signs of depression or anxiety Results Lab / Micro Data Attestation: I reviewed the patient's lab results. 04/20/23 19:37 04/20/23 19:37 Labs: Laboratory Results - last 24 hr 04/20/23 19:37: WBC 12.9 H, RBC 3.95 L, Hgb 12.5, Hct 37.5, MCV 94.9, MCH 31.6, MCHC 33.3, RDW Std Deviation 44.1 H, RDW Coeff of Mallika 12.6, Plt Count 243, MPV 10.8, Immature Gran % (Auto) 0.400, Neut % (Auto) 76.5 H, Lymph % (Auto) 16.0 L,Kimball % (Auto) 6.9, Eos % (Auto) 0.1, Baso % (Auto) 0.1, Absolute Neuts (auto) 9.9 H, Absolute Lymphs (auto) 2.07, Nucleated RBC % 0, Sodium 134 L, Potassium 3.8, Chloride 102, Carbon Dioxide 25.0, Anion Gap 7, BUN 11, Creatinine 0.71, Estim Creat Clear Calc 49.68, Est GFR (MDRD) Af Amer 103, Est GFR (MDRD) Non-Af 85, BUN/Creatinine Ratio 15.6, Glucose 99, Calcium 8.8, Troponin I High Sens 8 04/20/23 22:14: Urine Color Yellow, Urine Clarity Clear, Urine pH 7.0, Ur Specific Bertha 1.010, Urine Protein 15 H, Urine Glucose (UA) Normal, Urine Ketones 15 H, Urine Occult Blood 25 H, Urine Nitrite Negative, Urine Bilirubin Negative, Urine Urobilinogen Normal, Ur Leukocyte Esterase Negative, Urine RBC 0SEEN, Urine WBC 0 SEEN, Ur Squamous Epith Cells 0 SEEN, Urine Bacteria 0 SEEN, Urine Mucus 0 SEEN Imaging Radiology Impression Chest X-Ray 04/20/23 21:20 IMPRESSION: No acute cardiopulmonary disease. Electronically Signed: Michele Casper MD at 22:26 EST Reading Location ID and State: [employer] / [place] Tel , Service support , Brain CT 04/20/23 21:30 IMPRESSION: Negative head/brain CT without intravenous contrast. AIDOC was utilized to assist in identifying pertinent positive findings. Electronically Signed: Michele Casper MD at 22:46 EST , Assessment & Plan Assessment/Plan (1) Debility: (2) Fever: (3) Hypoxia: (4) Generalized weakness: (5) Leukocytosis: PLAN: Plan Fever -Etiology is currently unclear -Patient does have leukocytosis with left shift -With hypoxia preliminary best estimate of source would be a pneumonia -Chest x-ray and CT are not indicative of pneumonia however at this time -Respiratory viral panel is pending -Strep pneumo and Legionella antigens are pending -Check sputum culture -Blood cultures are pending -Start ceftriaxone and azithromycin Hypoxia with cough -Oxygen saturations were 87% on room air. Patient does not wear oxygen at baseline. Remote history of tobacco abuse -CT of the chest does show some bronchiectasis -Scheduled DuoNebs with as needed albuterol -Check strep pneumo and Legionella antigens -Check sputum culture -Continue home Mucinex -Continue home Tessalon Perles -I-S -Acapella -Will need ambulatory pulse ox prior to discharge Leukocytosis -Likely related to the above -Antibiotics as ordered -Cultures as ordered -Continue to monitor Generalized weakness/debility -Patient typically ambulates independently without assistive device at home -Lives independently -Suspect related to above -Consult PT/OT -Case management/social work to follow to assist with discharge planning Decreased appetite -Likely related to acute illness along with dysgeusia and anosmia -Consult dietitian -Add supplements with Ensure Recent COVID-19 infection -Was treated with Decadron and Tessalon Perles -Was not given Paxlovid -Diagnosed on 04/07/2023 -Out of the window for isolation History of PE/factor V Leiden heterozygous -Continue home anticoagulation with Eliquis GERD/hiatal hernia -Continue home PPI DM-2 -Diet controlled -P.o. appetite is very poor so we will liberalize diet and adjust if need to dueto hyperglycemia Neuropathy -Continue home Lyrica Osteoporosis -Patient is on Prolia -Continue home vitamin D and potassium supplementation History of migraines -No current issues Depression/insomnia -Continue home mirtazapine Hearing loss -Patient wears hearing aids Obesity -BMI is 31.1 -Recommend weight loss -Complicates treatment, prognosis, outcomes DVT prophylaxis -Continue home apixaban CODE STATUS -Full code is verified admission Charges/Coding Visit Charges Inpatient E&M: 73339 Init Hosp L2 04/21/23 0048 <Electronically signed by Mariella Harris DO> Cosigner Signature (if applicable): CC: Dr. Corky Mensah MD; Dr. Mariella Harris, DO~ Signed [facility] Work Phone: Hospital Discharge instructionsAmbulatory Orders* Orthopedics Location: None Selected * PT Referral Location: None Selected * Urology Location: None Selected [facility] Work Phone: Progress note Author Corky Mensah [facility] Note Date/Time December 09, 2024 1:32pm [facility] [address] [place] [address] [place] [address] OFFICE VISIT Date of Service: 12/09/24 MR#: [id number] Acct: [id number] Name: CARL LOUIS Rep #: [id number] Provider: Dr. Meagan Mensah MD Age/Sex: 79/F Location: [facility] Status: Signed Intake Vital Signs 06/08/24 13:56 12/09/24 12:59 Height 4 ft 10 in 4 ft 10 in Weight: 144 lb BMI 30.1 BP 142/84 H Blood Pressure Location Lt brachial Position Sitting Respiration 18 Pulse 91 Pulse Source Monitor Temp 97.8 F Temp Source Temporal Pulse Oximetry (%) 95 Oxygen Delivery Method room air Intake Visit Reasons: 6 m fu Chief Complaint: 6 M FU Is patient in pain?: No Allergies castor oil Allergy (Verified 12/09/24 12:59) Unknown frovatriptan succinate (From Frova) Allergy (Verified 12/09/24 12:59) Rash Iodinated Contrast Media Allergy (Verified 12/09/24 12:59) Vomiting sumatriptan (From Imitrex) Allergy (Verified 12/09/24 12:59) Rash sumatriptan succinate (From Imitrex) Allergy (Verified 12/09/24 12:59) Rash vitamin E (d-alpha tocopherol) Allergy (Verified 12/09/24 12:59) Chest tightness ezetimibe (From Zetia) Adverse Reaction (Severe, Verified 12/09/24 12:59) Severe GI upset/stomach pain guaifenesin (From Mucinex) Adverse Reaction (Intermediate, Verified 12/09/24 12:59) Other levofloxacin (From Levaquin) Adverse Reaction (Intermediate, Verified 12/09/24 12:59) pain fluticasone (From Flonase) Adverse Reaction (Verified 12/09/24 12:59) Nausea Medications ?Medication ?Instructions ?Recorded ?Confirmed ?Type vitamin E (dl, acetate) 180 mg 400 units PO DAILY Supp lement 10/13/13 12/09/24 History (400 unit) capsule vitamin B complex 1 tab PO DAILY supplement 12/09/24 History cholecalciferol (vitamin D3) 10 5,000 unit PO DAILY Evans pplement 09/05/22 12/09/24 History mcg (400 unit) capsule ferrous sulfate-vitamin C 39 mg-75 1 tab PO DAILY 08/2112/09/24 History mg tablet hydrocodone-acetaminophen 5-325mg 1 tab PO BID PRN sunni n 09/05/22 12/09/24 Hi story 5mg-325mg ketoconazole 2 % shampoo 1 applic topical 2XW #120 mL 03/06/23 12/09/24 Rx pregabalin 50 mg capsule (Lyrica) 50 mg PO Q8H Burning in left leg 03/20/23 12/09/24 History calcium carbonate (Calcium 600) 600 mg PO DAILY SUPPLE MENT 04/21/23 12/09/24 History pantoprazole 40 mg tablet,delayed 40 mg PO QDAY #90 ta bs 01/29/24 12/09/24 Rx release zoledronic acid 5 mg/100 mL in 1 ea IV .Yearly #100 mL 04/04/24 12/09/24 Rx mannitol 5 %-water intravenous piggybck (Reclast) Handicap Placard #1 ea 06/01/24 12/09/24 Rx apixaban 5 mg tablet (Eliquis) 5 mg PO BID #180 tabs 0 09/29/24 12/09/24 Rx mirtazapine 7.5 mg tablet 7.5 mg PO QHS Sleep #90 tabs 10/19/24 12/09/24 Rx albuterol sulfate 90 mcg/actuation 2 puff inhalation Q 6H PRN 12/09/24 12/09/24 Rx aerosol inhaler (Ventolin HFA) shortness of breath or wheezing #8.5 grams Have you fallen in the past year?: Yes (x1 hip fracture) Nurse's Note: pt reports that last week she noted blood in the urine,had c/o burning and urgency reports that she increased fluids and her symptoms seem to have resolved pt reports that she had right hip surgery post fall in [place], pt requesting ortho referral [facility] Medical History (Updated 12/09/24 @ 16:[address] Corky Mensah MD) Hematuria History of hip fracture Dermatitis Hypertension Nocturnal hypoxemia Diplopia Headache Acute hypoxemic respiratory failure Leukocytosis Generalized weakness Fever of unknown origin Leukocytosis Generalized weakness Hypoxia Fever Debility COVID-19 URI (upper respiratory infection) Flu vaccine need Seborrheic dermatitis GERD (gastroesophageal reflux disease) Left hip pain Health care maintenance Migraine Chronic bronchitis Bone fracture History of back problems Anemia Seasonal allergies Wears dentures Wears hearing aid Wears glasses Post-menopausal Anxiety Arthritis Bladder disease Pulmonary embolism High cholesterol Easy bruising Excessive bleeding History of hiatal hernia Gastric reflux Former smoker History of stress test History of irregular heartbeat Fibromyalgia Nodular goiter History of DVT (deep vein thrombosis) Cardiac murmur Factor 5 Leiden mutation, heterozygous HLD (hyperlipidemia) DM2 (diabetes mellitus, type 2) Depression Surgical History Hx of kyphoplasty H/O: hysterectomy Hx of appendectomy Family History Father CAD (coronary artery disease) Myocardial infarction Bleeding disorder History of blood clots CVA (cerebral vascular accident) Mother Colon cancer Diabetes High cholesterol Cancer Skin Sister Psychiatric care High cholesterol Diabetes Colon cancer Brother Colon cancer High cholesterol Social History household members: none housing: house Smoking Status: Former smoker alcohol intake: never substance use type: does not use what type of physical activity do you participate in: none seatbelt use: always do you feel safe at home: Yes additional social history: , ambulates independently without an assistive device Female Reproductive History Menstrual Ab spontaneous: 1 HPI HPI Chief Complaint: 6 M FU Details: CARL LOUIS, is an 79-year-old female presenting for follow-up of her chronic conditions. Recent hip fracture. The incident occurred while the patient was visiting her daughter in [place], who is undergoing cancer treatment. The fall happened as the patient was stepping onto the porch causing her to fall backward into the house. The patient believes she fractured her hip and the top of the femur in the fall. Surgery for the hip fracture took place on September 27, and the patient experienced a delay in surgery due to being on Eliquis. Postsurgical stay was uneventful, discharged home in stable condition following which she started therapy and believes she had about 9 sessions in total. Recommendation was for follow-up imaging and continued physical therapy. About a week ago, noted blood in her urine. Similar episode happened years ago. She states that she started drinking more water with subsequent resolution. Noabdominal pain, chills or fever. At that time, had noted burning and some urgency as well. The patient has been actively managing her borderline diabetes, successfully reducing her A1c from 6.2 to 5.8, through dietary adjustments and exercise untilthe fall. The patient remains committed to her exercise regimen as taught duringtherapy. Other chronic conditions are stable. Attestation: Documentation on this patient encounter was supported using ambient scribe technology/ voice AI technology. The patient consented to recording for the purpose of documenting the encounter. Provider reviewed content of the generatednote prior to signature. ROS Const Constitutional: No body ache, chills, excessive sweating, fatigue, fever(s), frequent falls, headache(s), snoring, weight change, sleep problems, abnormal sleep pattern or change in appetite Eyes Eyes: No blurry vision, change in vision, vision loss, dry eyes, eye pain or Light sensitivity ENT ENT: No abnormal hearing, ear or mastoid pain, tinnitus, dizziness/vertigo, nasal congestion, headache(s), neck pain or sore throat Resp Respiratory: No cough, excessive phlegm production, hemoptysis, shortness of breath, snoring or wheezing Cardio Cardiology: No chest pain at rest, chest pain with exertion, excessive sweating,shortness of breath, dyspnea on exertion, lightheadedness, orthopnea or palpitations Gastro GI: No abdominal pain, change in bowel habits, constipation, cramping, diarrhea,nausea/dyspepsia or vomiting Genitourinary-Female: No burning urination, painful urination, urinary incontinence, urinary frequency, abnormal vaginal bleeding or pelvic pain Musc Musculoskeletal: Positive for joint pain and limited range of motion; No abnormal gait, back pain, neck pain, numbness or tingling Skin Skin: No dry skin, redness, lesions, itchy eyes, rash or wounds Neuro Neurology: No abnormal gait, abnormal hearing, frequent falls, headache(s), memory loss, numbness or tingling Psych Psychiatric: No abnormal sleep pattern, No anxiety, No change in appetite, No irritability, No memory loss and No Thoughts of harming yourself/Others Endo Endocrine: No cold intolerance, excessive sweating, fatigue, flushing, heat intolerance, increased thirst/drinking, increased hunger or weight change Aller/Imm Allergy/Immunologic: No itchy eyes, seasonal allergy symptoms, hives or wheezing Malik/Lymp Hematologic/Lymphatic: No easy bleeding, easy bruising, enlarged lymph nodes or other Exam Const General: cooperative Orientation: alert, awake and oriented x3 HENMT Head: normal to inspection, normocephalic and atraumatic Ears: hearing grossly normal bilaterally Eyes General: appearance normal, both eyes and all related structures Neck Neck: normal visual inspection, full ROM, no lymphadenopathy and supple Neck mass: No Thyroid: thyroid normal Resp Effort & Inspection: normal respiratory effort and able to speak in complete sentences Auscultation: Bilateral: Clear to Auscultation Cardio Rate: regular rate Rhythm: regular rhythm Heart Sounds: S1 normal and S2 normal GI Palpation: soft (Nontender, no palpable organomegaly) Neuro General: patient alert, patient awake, patient oriented x3, moves all extremities and CN's II-XI intact bilaterally Extrem General: no clubbing, cyanosis or edema Psych Appearance: grossly normal Mental Status: mental status grossly normal Mood: congruent mood Affect: normal affect Results POC A1C POC A1C 5.8 % Last Edit by Sara Johnston LPN on 12/09/24 13:16 Coding Level of Care Code Off vis,est,level 4 Diagnoses History of hip fracture Z87.81 Hematuria R31.9 Borderline diabetes R73.03 Depression F32.9 Age-related osteoporosis without current pathological fracture M81.0 Osteoporosis type: age-related Presence of current pathological fracture: without current pathological fracture Assessment and Plan Assessment and Plan (1) History of hip fracture: Status: Acute Plan: Status post surgery which was uneventful. Surgery was in [place]. Continue rehabilitation with a new referral for physical therapy to enhance gait and strength. Also referred to Ortho per patient request. (2) Hematuria: Status: Acute Plan: Resolved. No further concerns reported by patient. Currently on Eliquis. Repeat urinalysis ordered, will review however due to lona hematuria, she wouldbenefit from urology evaluation as well. Referral placed. (3) Borderline diabetes: Status: Chronic Plan: A1c is down from 6.2-5.8. Encouraged continuation of current lifestyle adjustments as they have been effective in lowering A1c. Follow-up at next visit. (4) Depression: Status: Chronic Plan: No concerns at this time. Continue mirtazapine. (5) Osteoporosis: Status: Chronic Qualifiers: Osteoporosis type: age-related Presence of current pathological fracture: without current pathological fracture Qualified Code(s): M81.0 - Age-related osteoporosis without current pathological fracture Plan: No recent pathological fracture. Continue Reclast, vitamin D and calcium supplements. This note was generated with [employer] software. It may contain incorrectwords, spelling, and punctuation that were not noted in checking the note beforesigning. Orders: Orders POC A1C Today R73.03 - Prediabetes Comprehensive Metabolic Profil Today I10 - Essential (primary) hypertension CBC W/Diff, Automated Today E78.5 - Hyperlipidemia, unspecified Urinalysis, Complete Today N39.0 - Urinary tract infection, site not specified Referrals PT Referral Z87.81 - Personal history of (healed) traumatic fracture Orthopedics Z87.81 - Personal history of (healed) traumatic fracture Urology R31.9 - Hematuria, unspecified Medications: New albuterol sulfate 90 mcg/actuation (Ventolin HFA) 2 puffs inhalation Q6H PRN 8.5grams 2RF shortness of breath or wheezing Discontinued albuterol sulfate Discontinued Reason: Discontinued by PCP/other physicians 2 puffs inhalationPRN Clinical Quality Measures Falls Risk Screening/Assistive Devices Have you fallen in the past year?: Yes (x1 hip fracture) 12/09/24 1643 <Electronically signed by Corky turner MD> Date _ Corky Mensah MD Cosigner Signature: Date (if applicable) CC: ~ [facility] Work Phone: Reason for referral (narrative)No reason for referral information availableWCorey Hospital Work Phone: Summary Purpose Family History No Family History Records Found Relationship Condition Age at Onset Recorded Date/T farideh father Coronary artery disease Unknown Myocardial infarction Unknown mother Malignant neoplasm of colon Unknown Relationship Condition Age at Onset Recorded Date/T farideh father Coronary artery disease Unknown Myocardial infarction Unknown Hemorrhagic disorder Unknown History of blood clots Unknown Cerebrovascular accident (CVA) Unknown mother Malignant neoplasm of colon Unknown Diabetes mellitus Unknown High blood cholesterol Unknown Malignant neoplasm Unknown sister Psychiatric care Unknown Malignant neoplasm of colon Unknown brother Malignant neoplasm of colon Unknown Advance Directives No Advanced Directives Records Found Advance Directive Response Recorded Date/ Time Advance Directives Yes October 13 9:59am Living Will Yes December 22 12:17pm Power of Aquaculture Farmer Yes December 22 12:17pm Advance Directive Response Recorded Date/ Time Advance Directives Yes October 13 9:59am Living Will No August 23, 2021 1 1:30pm Power of Aquaculture Farmer No August 23, 2021 11:30pm Advance Directive Response Recorded Date/ Time Advance Directives Yes October 13 8:59am Living Will No February 26 9:39pm Power of Aquaculture Farmer No February 26, 2022 9:39pm Advance Directive Response Recorded Date/ Time Name of Medical Power of Aquaculture Farmer STACIE LOCKE April 20, 2023 9:47pm Advance Directives Yes October 13 8:59am Living Will Yes April 20 9:47pm Power of Aquaculture Farmer Yes April 20, 2023 9:47pm Advance Directive Response Recorded Date/ Time Name of Medical Power of Aquaculture Farmer Stacie Locke - daughter April 21, 2023 1:14am Advance Directives Yes October 13 8:59am Living Will Yes April 21 1:14am Power of Aquaculture Farmer Yes April 21, 2023 1:14am Advance Directive Response Recorded Date/ Time Name of Medical Power of Aquaculture Farmer Stacie Locke - ariana April 21, 2023 2:14am Advance Directives Yes October 13 9:59am Living Will Yes April 21 2:14am Power of Aquaculture Farmer Yes April 21, 2023 2:14am Advance Directive Response Recorded Date/ Time Living Will Yes August 19, 2023 1 :38pm Do you have a Healthcare Power of Aquaculture Farmer? Yes August 19, 2023 1:38pm Advance Directives Yes August 18 1:38pm Advance Directive Response Recorded Date/ Time Advance Directives Yes August 18 1:38pm Chief Complaint and Reason for Visit Chief Complaint FEVER, URINARY URGEN CY Chief Complaint UPPER BACK Chief Complaint 6 M FU ADD LEFT HIP XRAY Reason for Visit Flu vaccine need GERD (gastroesophageal reflux disease) Left hip pain Osteoporosis Seborrheic dermatitis Chief Complaint 6 M FU ADD LEFT HIP XRAY Osteoporosis FEVER/COUGH STRUGGLING WITH COVID FEBRILE ILLNESS CAP/HYPOXIA Reason for Visit Flu vaccine need GERD (gastroesophageal reflux disease) Left hip pain Osteoporosis Seborrheic dermatitis Osteoporosis COVID-19 URI (upper respiratory infection) Acute hypoxemic respiratory failure Chronic anticoagulation Debility Fever Fever of unknown origin Generalized weakness Hypoxia Leukocytosis Chief Complaint 6 M FU ADD LEFT HIP XRAY Osteoporosis FEVER/COUGH STRUGGLING WITH COVID FEBRILE ILLNESS CAP/HYPOXIA CAP/HYPOXIA Reason for Visit Flu vaccine need GERD (gastroesophageal reflux disease) Left hip pain Osteoporosis Seborrheic dermatitis Osteoporosis COVID-19 URI (upper respiratory infection) Acute hypoxemic respiratory failure Chronic anticoagulation Debility Fever Fever of unknown origin Generalized weakness Hypoxia Leukocytosis Chief Complaint 6 M FU ADD LEFT HIP XRAY Osteoporosis FEVER/COUGH STRUGGLING WITH COVID FEBRILE ILLNESS CAP/HYPOXIA CAP/HYPOXIA CAP/HYPOXIA [facility] fu/discuss oxygen use at night 3 M FU Reason for Visit Flu vaccine need GERD (gastroesophageal reflux disease) Left hip pain Osteoporosis Seborrheic dermatitis Osteoporosis COVID-19 URI (upper respiratory infection) Chronic anticoagulation Acute hypoxemic respiratory failure COVID-19 Diplopia Acute hypoxemic respiratory failure Chronic anticoagulation Nocturnal hypoxemia Borderline diabetes Depression Osteoporosis Chief Complaint FEVER/COUGH STRUGGLING WITH COVID FEBRILE ILLNESS CAP/HYPOXIA CAP/HYPOXIA CAP/HYPOXIA [facility] fu/discuss oxygen use at night 3 M FU ACUTE POSSIBLE BLADDER INFECTION Reason for Visit COVID-19 URI (upper respiratory infection) Chronic anticoagulation Acute hypoxemic respiratory failure COVID-19 Diplopia Acute hypoxemic respiratory failure Chronic anticoagulation Nocturnal hypoxemia Borderline diabetes Depression Osteoporosis Suprapubic fullness Chief Complaint Admit Date 6 M FU June 08, 2024 1:4 8pm Reason for Visit Admit Date Borderline diabetes June 08, 2024 1:4 8pm Depression June 08, 2024 1:4 8pm Dermatitis June 08, 2024 1:4 8pm GERD (gastroesophageal reflux disease) M arch 2024 1:48pm Hypertension June 08, 2024 1:4 8pm Osteoporosis June 08, 2024 1:4 8pm Chief Complaint Admit Date 6 m fu December 09, 2024 12:51pm Reason for Visit Admit Date Hematuria December 09, 2024 12:51pm History of hip fracture December 09, 2024 12:51pm Borderline diabetes December 09, 2024 12:51pm Depression December 09, 2024 12:51pm Osteoporosis December 09, 2024 12:51pm Additional Source Comments INFORMATION SOURCE (unrecogn ized section and content) DATE CREATED AUTHOR 09/15/2017 [facility] DATE CREATED AUTHOR AUTHOR'S ORGANIZ ATION 03/12/2022 [facility] DATE CREATED AUTHOR AUTHOR'S ORGANIZ ATION 03/12/2024 [facility] DATE CREATED AUTHOR AUTHOR'S ORGANIZ ATION 12/24/2024 [facility] Goals (unrecognized section and content) Goals may be documented in a n alternate sectionGoals may be documented in an alternate sectionGoals may be documented in an alternate sectionGoals may be documented in an alternate sectionGoals may be documented in an alternate sectionGoals may be documented in an alternate sectionGoals may be documented in an alternate sectionGoals may be documented in an alternate sectionGoals may be documented in an alternate sectionGoals may be documented in an alternate section Care Teams (unrecognized sec tion and content) Team Status: Active Member Role Status Dates Dr. Theo Watters MD Family Provider Active Dr. Theo Watters MD Primary Care Provider Active Team Status: Inactive Member Role Status Dates Dr. Theo Watters MD Primary Care Provider Active Dr. Elsa Watson DO Attending Provider, Emergency Pro vider Active Team Status: Inactive Member Role Status Dates Dr. Theo Watters MD Primary Care Provider, Attending Provider Active Team Status: Active Member Role Status Dates Dr. Theo Watters MD Family Provider Active Dr. Corky Mensah MD Primary Care Provider Active Team Status: Inactive Member Role Status Dates Dr. Corky Mensah MD Primary Care Provider Active Dr. Roberta Edouard MD Attending Provider, Referring Pr ovider Active Team Status: Inactive Member Role Status Dates Dr. Theo Watters MD Referring Provider Active Dr. Corky Mensah MD Primary Care Provider, Atten ding Provider Active Team Status: Inactive Member Role Status Dates Dr. Corky Mensah MD Primary Care P rovider, Attending Provider, Referring Provider Active Team Status: Inactive Member Role Status Dates Dr. Corky Mensah MD Primary Care Provider, Refer ring Provider Active Dr. Hussain Carr MD Attending Provider Active Team Status: Inactive Member Role Status Dates Dr. Corky Mensah MD Primary Care Provider, Refer ring Provider Active Raymundo Daniel PA, PA Attending Provider Active Team Status: Active Member Role Status Dates Dr. Corky Mensah MD Primary Care Provider Active Dr. Aleksandr Anderson DO Emergency Provider Active Dr. Mariella Harris , DO Admit Provider, Att ending Provider, Other Provider Active Team Status: Active Member Role Status Dates Dr. Corky Mensah MD Primary Care Provider Active Dr. Aleksandr Anderson DO Emergency Provider Active Dr. Mariella Harris , DO Admit Provider, Attending Provide r Active Team Status: Active Member Role Status Dates Dr. Corky Mensah MD Primary Care Provider Active Dr. Aleksandr Anderson DO Emergency Provider Active Dr. Mariella Harris , DO Admit Provider, Other Provider Ac tive Dr. Franissco Barroso , DO Attending Provider, Other Pro vider Active Team Status: Inactive Member Role Status Dates Dr. Corky Mensah MD Primary Care Provider Active Dr. Aleksandr Anderson DO Emergency Provider Active Dr. Mariella Harris , DO Admit Provider, Other Provider Ac tive Dr. Fransisco Barroso , DO Attending Provider Active Team Status: Active Member Role Status Dates Dr. Corky Mensah MD Primary Care Provider Active Dr. Aleksandr Anderson DO Referring Provider, Emergency P rovider Active Dr. Mariella Harris DO Admit Provider, Att ending Provider, Other Provider Active Team Status: Active Member Role Status Dates Dr. Corky Mensah MD Primary Care Provider Active Dr. Radha Delarosa MD Attending Provider Active Dr. Fransisco Barroso DO Referring Provider Active Team Status: Inactive Member Role Status Dates Dr. Corky Mensah MD Primary Care Provider, Refer ring Provider Active JOSE Valencia Attending Provider Active Team Status: Inactive Member Role Status Dates Dr. Corky Mensah MD Primary Care Provider Active JOSE Valencia Attending Provider Active Team Status: Inactive Member Role Status Dates Dr. Corky Mensah MD Primary Care Provider Active Start: June 08, 2024 End: June 08, 2024 Dr. Corky Mensah MD Attending Provider Active Start: June 08, 2024 End: June 08, 2024 Dr. Corky Mensah MD Referring Provider Active Start: June 08, 2024 End: June 08, 2024 Team Status: Active Member Role/Relationship Status Dates Dr. Theo Watters MD Primary care physician Active Dr. Corky Mensah MD Primary care physician Activ e Team Status: Inactive Member Role/Relationship Status Dates Dr. Corky Mensah MD Primary care physician Activ e Start: December 09, 2024 End: December 09, 2024 Dr. Corky Mensah MD Attending physician Active Start: December 09, 2024 End: December 09, 2024 Dr. Corky Mensah MD Referring Provider Active Start: December 09, 2024 End: December 09, 2024 Team Status: Inactive Member Role/Relationship Status Dates Dr. Corky Mensah MD Primary care physician Activ e Start: December 09, 2024 End: December 09, 2024 Dr. Corky Mensah MD Attending physician Active Start: December 09, 2024 End: December 09, 2024 Dr. Corky Mensah MD Referring Provider Active Start: December 09, 2024 End: December 09, 2024 Team Status: Inactive Member Role/Relationship Status Dates Dr. Corky Mensah MD Primary care physician Activ e Start: December 09, 2024 End: December 09, 2024 Dr. Corky Mensah MD Attending physician Active Start: December 09, 2024 End: December 09, 2024 Dr. Corky Mensah MD Referring Provider Active Start: December 09, 2024 End: December 09, 2024 FOR RECORDS PERTAINING TO PATIENTS WHO ARE [...] BE BASED ON THE PRIMARY CLINICAL RECORDS. [facility]. provides no warranty or guarantee of the accuracy or completeness of information in this document."
== END | disposition home or self-care (01) ==
LOC: LABSPEC 16:37
PROVIDERS: PCP Internal Medicine; Visit Provider Urology
DX: R31.0 Gross hematuria (principal)
CPT/HCPCS: 88108; 88313

== ENCOUNTER → 2025-02-17 | Outpatient (CLI) | payer MEDICARE, BC, SELFPAY ==
--- OUTSIDE RECORDS SUMMARY | 2025-02-17 14:19 | XMS RPT_ITS | CCD ---
Author Organization [facility] Care Team Providers Care Manager Agency Name Role Phone Stacie Madera Unavailable Unavailable Cecil RN, Bianca Gibson Unavailable SUZANNE MARTIN Unavailable Unavailable SYSTEM, PROVIDER NOT IN Unavailable Unavaila ble DeFinis, Harumi Y Unavailable Unavailable DeFinis, Harumi Y Unavailable Unavailable SAGAR YING Admitting Unavailable SAGAR YING Referring Unavailable KEN PATTEN Attending Unavailable Dr. Theo Watters Chi Referring Provider Dr. Corky Mensah Primary Care Provider [phone] Dr. Corky Mensah Attending Provider [phone] Dr. Corky Mensah Referring Provider [phone] Dr. Hussain Carr Attending Provider Fredy SCHMIDT, ROXANA Colmenares Attending Provider Dr. Aleksandr Anderson Emergency Provider Dr. Mariella Harris Admit Provider Dr. Mariella Harris Attending Provider Dr. Mariella Harris Other Provider Dr. Fransisco Barroso Attending Provider Dr. Fransisco Barroso Other Provider Dr. Theo Watters Chi Referring Provider Dr. Corky Mensah Primary Care Provider Dr. Corky Mensah Attending Provider Dr. Corky Mensah Referring Provider [phone] Dr. Hussain Carr Attending Provider ROXANA Collins Attending Provider Dr. Aleksandr Anderson Referring Provider Dr. Aleksandr Anderson Emergency Provider Dr. Mariella Harris Admit Provider Dr. Mariella Harris Attending Provider Dr. Mariella Harris Other Provider Dr. Fransisco Barroso Attending Provider Dr. Fransisco Barroso Other Provider Dr. Radha Delarosa Attending Provider Dr. Fransisco Barroso Referring Provider Dr. Corky Mensah Primary Care Provider [phone] Dr. Corky Mensah Referring Provider [phone] Dr. Corky Mensah Attending Provider [phone] JOSE Reyes Attending Provider [phone] ROBERTA EDOUARD Attending Unavailable ROBERTA EDOUARD Primary Care Unavailable ROBERTA EDOUARD Admitting Unavailable ALEXA, THEO Consulting Unavailable PROVIDER, UNKNOWN Consulting Unavailable Dr. Corky Mensah MD Primary Care Provider Dr. Corky Mensah MD Attending Provider [phone] Dr. Corky Mensah MD Referring Provider [phone] Dr. Corky Mensah MD Primary Care Physician Dr. Corky Mensah MD Attending Physician [phone] Dr. Corky Mensah MD Referring Provider [phone] Corky Mensah Referring Unavailable Corky Mensah Primary Care Unavailable Corky Mensah Attending Unavailable Katya Mcleod Attending Unavailable Katya Mcleod Referring Unavailable Oleghe, Efewongbe Primary Care Unavailable Katya Mcleod Attending Unavailable Oleghe, Efewongbe Primary Care Unavailable Katya Mcleod Attending Unavailable Oleghe, Efewongbe Primary Care Unavailable Oleghe, Efewongbe Referring Unavailable Oleghe, Efewongbe Referring Unavailable Oleghe, Efewongbe Primary Care Unavailable Oleghe, Efewongbe Attending Unavailable Oleghe, Efewongbe Referring Unavailable Oleghe, Efewongbe Primary Care Unavailable Oleghe, Efewongbe Attending Unavailable Oleghe, Efewongbe Attending Unavailable Oleghe, Efewongbe Referring Unavailable Oleghe, Efewongbe Primary Care Unavailable Oleghe, Efewongbe Referring Unavailable Oleghe, Efewongbe Primary Care Unavailable Oleghe, Efewongbe Attending Unavailable Allergies Allergy Classification Reported Allergen(s) Allergy Type Date of Onset Reaction(s) Facility (20 sources) castor oil; Translations: [CASTOR OIL] drug allergy 6 Unknown [facility] Work Phone: (4 sources) frovatriptan drug allergy 6 [facility] Work Phone: (5 sources) iodine; Translations: [IODINE] drug allergy 1 [facility] Work Phone: (5 sources) SUMAtriptan; Translations: [IMITREX] drug allergy 6 Rash [facility] Work Phone: (4 sources) VIT E SOLUTION drug allergy 6 [facility] Work Phone: [phone] (1 source) frovatriptan; Translations: [FROVATRIPTAN] Drug Allergy 7 [facility] Repository (15 sources) SUMAtriptan; Translations: [SUMATRIPTAN SUCCINATE] Drug Allergy 7 [facility] Repository (1 source) vitamin E; Translations: [VITAMIN E (BULK)] Drug Allergy 7 [facility] Repository (3 sources) Contrast media Allergy to substance 1 Vomiting [facility] (13 sources) ezetimibe Drug Allergy 1 Severe GI upset/stomach pain [facility] (14 sources) frovatriptan; Translations: [frovatriptan succinate] Drug Allergy 1 Rash [facility] (13 sources) levoFLOXacin Drug Allergy 1 pain [facility] (13 sources) SUMAtriptan Drug Allergy 1 Rash [facility] (13 sources) Vitamin E Drug Allergy 1 Chest tightness [facility] Comment on above: VITAMIN E IV SOLUTIO N (10 sources) Triiodobenzoic Acids Allergy to substance 3 Vomiting [facility] (6 sources) fluticasone Drug Allergy 4 Nausea [facility] Comment on above: confusion. head fee ls funny (6 sources) guaiFENesin Drug Allergy 4 Other [facility] Comment on above: head feels funny (1 source) Contrast media Drug allergy (disorder) [facility] Repository (1 source) ezetimibe Drug Allergy 5 [facility] Repository (1 source) fluticasone Drug Allergy 5 [facility] Repository (1 source) guaiFENesin Drug Allergy 5 [facility] Repository (1 source) levoFLOXacin Drug Allergy 5 [facility] Repository (1 source) SUMAtriptan Drug Allergy 5 [facility] Repository (1 source) Vitamin E Drug Allergy 5 [facility] Repository (1 source) Iodinated Contrast Media Drug allergy (disorder) 5 [facility] Repository Medications Current Medications Medication Drug Class(es) [...] ETAMINOPHEN 5-500 MG TABS as needed HYDROCODONE-ACETAMINOPHEN [id number] Jose E Soria MD Start: 03-05-2011 VICODIN 5-500 MG TABS as needed HYDROCODONE-ACETAMINOPHEN [id number] Jose E Soria MD Start: 03-05-2011 End: 02-09-2014 VICODIN 5-500 MG TABS as nee ded HYDROCODONE-ACETAMINOPHEN [id number] Jose E Soria MD [id number] actuat albuter ol 0.09 mg/actuat metered [...] D Start: 09-05-2022 take 1 capsule by mo ut once daily Start: 09-05-2022 take 5000 [IU] by mo [facility] once daily Cholecalciferol (Vitamin D3) Active 5000 UNIT PO DAILY September 05, 2022 1:34pm Start: 09-05-2022 take 5000 [IU] by mo ut once daily Cholecalciferol (Vitamin D3) Active 5000 UNIT PO DAILY September 05, 2022 12:34pm Start: 09-05-2022 take 2000 [IU] by mo ut three times daily Cholecalciferol (Vitamin D3) Active [...] CAPS One tablet by mouth daily CHOLECALCIFEROL [id number] Jose E Soria MD Ferrous Sulfate-Vitamin C [...] Start: 03-20-2023 take 1 capsule by mo [facility] every eight hours Start: 09-05-2022 End: [...] tablet by mouth daily B COMPLEX VITAMINS [id number] Amisha Vang RN Vitamin B Complex 1 [...] One tablet by mouth daily VITAMIN E [id number] Amisha Vang RN Completed/Discontinued Medications Medication Drug [...] as needed for migraine headache ALMOTRIPTAN MALATE [id number] Jose E Soria MD amoxicillin 500 mg / clavulanate 125 mg oral tablet (8 sources) Penicillin-class Antibacterial Start: 01-26-2013 End: 02-09-2014 take 1 tablet by mouth twice daily AUGMENTIN 500-125 MG TABS One tablet by mouth twice daily as directed AMOXICILLIN-POT CLAVULANATE [id number] Jose E Soria MD Start: 01-26-2013 take 1 tablet by benjie th twice daily AUGMENTIN 500-125 MG TABS One tablet by mouth twice daily as directed AMOXICILLIN-POT CLAVULANATE [id number] Jose E Soria MD Start: 01-26-2013 End: 02-09-2014 take 1 tablet by mouth twice daily AUGMENTIN 500-125 MG TABS One tablet by mouth twice daily as directed AMOXICILLIN-POT CLAVULANATE [id number] Jose E Soria MD apixaban 5 mg [...] TBEC One tablet by mouth daily ASPIRIN [id number] Amisha Vang RN Start: 03-04-2011 End: 01-26-2013 take 1 tablet by mouth once daily ECOTRIN LOW STRENGTH 81 MG TBEC One tablet by mouth daily ASPIRIN [id number] Jose E Soria MD atorvastatin 80 mg oral tablet (8 sources) HMG-CoA Reductase Inhibitor Start: 03-04-2011 End: 09-01-2011 take 1 tablet by mouth once daily LIPITOR 80 MG TABS One tablet by mouth daily ATORVASTATIN CALCIUM 13891013450 Jose E Soria MD benzonatate 200 mg [...] every 3 months for migraines ONABOTULINUMTOXINA SOLR 14207363932 Jose E Soria MD Start: 02-09-2014 End: 09-03-2015 BOTOX SOLR every 3 months fo r migraines ONABOTULINUMTOXINA SOLR [id number] Jose E Soria MD 120 actuat budesonide [...] tablet by mouth daily CALCIUM CARBONATE-VITAMIN D 07627183407 Jose E Soria MD calcium carbonate / vitamin D (3 sources) Start: 03-04-2011 End: 09-01-2016 take 1 tablet by mouth once daily CALCIUM + D 600-200 MG-UNIT TABS One tablet by mouth daily CALCIUM CARBONATE-VITAMIN D 35574726357 JoseE Soria MD Start: 03-04-2011 take 1 tablet by benjie th once daily CALCIUM + D 600-200 MG-UNIT TABS One tablet by mouth daily CALCIUM CARBONATE-VITAMIN D 51279701940 Amisha Vang RN calcium gluconate 650 mg [...] One tablet by mouth daily CITALOPRAM HYDROBROMIDE 78675394421 Jose E Soria MD clonazePAM 0.5 mg [...] TABS One tablet by mouth daily CLONAZEPAM [id number] Jose E Soria MD Start: 03-04-2011 End: 03-05-2012 CLONAZEPAM 0.5 MG TABS as ne eded CLONAZEPAM [id number] Jose E Soria MD 1 ml denosumab [...] Ergocalciferol (Vitamin D2) 50,000 unit capsule Discontinued 71664 U PO EVERY WEEK January 19, 2019 [...] CAPS One tablet by mouth daily GABAPENTIN [id number] Jose E Soria MD 12 hr guaiFENesin 600 mg extended release oral tablet (8 sources) Start: 04-16-2023 End: 04-24-2023 take 1 tablet by mouth twice daily, then take 1 tablet by mouth every twelve hours Guaifenesin (Mucinex) 600 mg tablet extended release 12hr Discontinued 600 mg PO TWICE A DAY 60 April 16, 2023 1:00am April 24, 2023 10:08am hyoscyamine sulfate 0.125 mg oral tablet (8 sources) Start: 03-05-2011 End: 09-01-2011 HYOSCYAMINE SULFATE 0.125 MG TABS 1 tablet by mouth as needed HYOSCYAMINE SULFATE [id number] Jose E Soria MD Magic Mouth Wash [...] One-half tablet by mouth as needed MELOXICAM [id number] Jose E Soria MD mirtazapine 7.5 mg [...] by mouth daily as needed NARATRIPTAN HCL 82091311980 Jose E Soria MD nortriptyline 50 mg oral capsule (4 sources) Tricyclic Antidepressant Start: 01-26-2013 take 1 tablet by mouth once daily NORTRIPTYLINE HCL 50 MG CAPS One tablet by mouth daily NORTRIPTYLINE HCL 98165628204 Jose E Soria MD omeprazole 40 mg delayed release oral capsule (19 sources) Proton Pump Inhibitor Start: 09-01-2016 take 1 tablet by mouth once daily OMEPRAZOLE 40 MG CPDR One tablet by mouth daily OMEPRAZOLE [id number] Jose E Soria MD Start: 01-26-2013 End: 09-03-2015 take 1 tablet by mouth once daily OMEPRAZOLE 40 MG CPDR One tablet by mouth daily OMEPRAZOLE [id number] Jose E Soria MD Start: 03-04-2011 End: 09-01-2011 take 1 tablet by mouth once daily as needed PRILOSEC 40 MG CPDR One tablet by mouth daily as needed OMEPRAZOLE [id number] Amisha Vang RN ONABOTULINUMTOXINA SOLR (4 sources) Start: 02-09-2014 BOTOX SOLR dawn ry 3 months for migraines ONABOTULINUMTOXINA SOLR 10901635059 Jose E Soria MD Start: 02-09-2014 End: 09-03-2015 BOTOX SOLR every 3 months fo r migraines ONABOTULINUMTOXINA SOLR 24816084934 Jose E Soria MD ondansetron 4 mg [...] MG TA BS As needed ONDANSETRON HCL 90795399745 Jose E Soria MD Start: 09-03-2015 ZOFRAN 4 MG TA BS As needed ONDANSETRON HCL 50578786703 Jose E Soria MD potassium chloride 20 [...] 10 MG TABS x 7 days PREDNISONE 89859503165 Jose E Soria MD promethazine hydrochloride 25 [...] One tablet by mouth daily RANITIDINE HCL 27401065271 Jose E Soria MD vitamin b 12 1 mg oral tablet (8 sources) Vitamin B12 Start: 03-05-2012 End: 09-03-2015 take 1 tablet by mouth once daily VITAMIN B-12 1000 MCG TABS One tablet by mouth daily CYANOCOBALAMIN 60169114445 Jose E Soria MD warfarin sodium 4 [...] MG TABS Take as directed WARFARIN SODIUM [id number] Perri Talbert RN 100 ml zoledronic acid 0.05 mg/ml injection (20 sources) Bisphosphonate Start: 04-20-2023 End: 04-04-2024 Zoledronic Ydhs-Vocezfkm-Mxkfu (Reclast) 5 mg/100 mL piggyback Discontinued 1 NMA IV .Yearly 100 1 April 29, 2023 12:07pm April 04, 2024 5:31pm Start: 04-20-2023 End: 04-29-2023 Zoledronic Kppj-Jehqtfji-Avm er (Reclast) 5 mg/100 mL piggyback Active 1 EACH IV .Yearly 100 April 29, 2023 12:07pm Start: 09-05-2022 End: 03-20-2023 Zoledronic Budu-Rbfoougd-Zlq er (Reclast) 5 mg/100 mL piggyback Discontinued [...] stress incontinence; Translations: [Stress incontinence (female) (male)] Onset: 5 01-18-2019 Chronic Genitourinary symptoms and ill-defined conditions [...] sources) Long-term current use of anticoagulant; Translations: [nursing home (current) use of anticoagulants] 04-21-2023 Episodic Other aftercare (6 sources) 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; Translations: [Long-term (current) use of anticoagulants] 04-21-2023 Episodic Other connective tissue disease (4 sources) H/O: back problem; Translations: [Personal history of other diseases of the musculoskeletal system and connective tissue] 06-16-2023 Episodic Other diseases of veins and lymphatics [...] nutritional and metabolic disease] 03-07-2022 Episodic Other screening for suspected conditions (not mental disorders or infectious disease) (20 sources) Deviation of international normalized ratio from target range; Translations: [Abnormal coagulation profile] 08-04-2020 Episodic Other upper respiratory disease (10 sources) [...] Spinal epidural hematoma; Translations: [Spinal epidural hematoma] 03-07-2022 Chronic Thyroid disorders (13 sources) Nodular goiter ; Translations: [Nontoxic goiter, unspecified] 12-19-2019 Chronic Unclassified (1 source) Dysuria / [id number]() Onset: 7 Unclassified (1 source) Knee Pain / [id number]() Onset: 7 Unclassified (1 source) Unknown / [...] Problem Classification Problem Date Documented Date Episodic/Chronic Other inflammatory condition of skin (4 sources) [...] Test Name Value Interpretation Reference Range Facility Cytology, Body Fluid / CSFon 01-25-2025 CYTOLOGY,BF/CSF SEE PATHOLOGY REPORT Normal [facility] Comment on above: Order Comment: URINE Result Comment: Spec imen submitted to Anatomical Pathology Department for testing. Performed By: #### L 350.1000 #### [facility] [address] [place], [place], [address] MR/Rachel 01-25-2025 /[facility] [address] [facility], [address] [place], [place] [address] OFFICE VISIT Date of Service: 01/25/25 MR#: [id number] Acct: [id number] Name: CARL LOUIS Rep #: [id number] : 1945 Provider: Dr. 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 Accompanied by: self Is patient in pain?: Yes (arthritis ) Pain scale (1-10): 5 Allergies castor oil Allergy (Verified 01/25/25 12:56) Unknown frovatriptan succinate (From Frova) Allergy (Verified 01/25/25 12:56) Rash Iodinated Contrast Media Allergy (Verified 01/25/25 12:56) Vomiting sumatriptan (From Imitrex) Allergy (Verified 01/25/25 12:56) Rash sumatriptan succinate (From Imitrex) Allergy (Verified 01/25/25 12:56) Rash vitamin E (d-alpha tocopherol) Allergy (Verified 01/25/25 12:56) Chest tightness ezetimibe (From Zetia) Adverse Reaction (Severe, Verified 12/09/24 12:59) Severe GI upset/stomach pain guaifenesin (From Mucinex) Adverse Reaction (Intermediate, Verified 01/25/25 12:56) Other levofloxacin (From Levaquin) Adverse Reaction (Intermediate, Verified 01/25/25 12:56) pain fluticasone (From Flonase) Adverse Reaction (Verified 01/25/25 12:56) Nausea Medications ???Medication ???Instructions ???Recorded ???Confirmed ???Type vitamin E (dl, acetate) 180 mg 400 units PO DAILY Supplement 09/2101/25/25 History (400 unit) capsule vitamin B complex 1 tab PO DAILY supplement 10/05/18 01/25/25 History cholecalciferol (vitamin D3) 10 5,000 unit PO DAILY Supplement 01/25/25 History mcg (400 unit) capsule ferrous sulfate-vitamin C 39 mg-75 1 tab PO DAILY 09/05/22 01/25/25 History mg tablet hydrocodone-acetaminophen 5-325mg 1 tab PO BID PRN pain 09/05/22 History 5mg-325mg pregabalin 50 mg capsule (Lyrica) 50 mg PO Q8H Burning in left leg 03/20/23 01/25/25 History calcium carbonate (Calcium 600) 600 mg PO DAILY SUPPLEMENT 4 01/25/25 History zoledronic acid 5 mg/100 mL in 1 ea IV .Yearly #100 mL 04/04/24 1 03/27/24 Rx mannitol 5 %-water intravenous piggybck (Reclast) Handicap Placard #1 ea 06/01/24 01/25/25 Rx apixaban 5 mg tablet (Eliquis) 5 mg PO BID #180 tabs 09/29/2408/14 Rx mirtazapine 7.5 mg tablet 7.5 mg PO QHS Sleep #90 tabs 10/1901/25/25 Rx Handicap Placard #1 ea 12/09/24 01/25/25 Rx albuterol sulfate 90 mcg/actuation 2 puff inhalation Q6H PRN 01/25/25 Rx aerosol inhaler (Ventolin HFA) shortness of breath or wheezing #8.5 grams pantoprazole 40 mg tablet,delayed 40 mg PO QDAY #90 tabs 01/02/25 1 03/27/24 Rx release ascorbate calcium (vitamin C) 500 500 mg PO QDAY 01/25/25 01/25/25 History mg tablet Have you fallen in the past year?: No Nurse's Note: hematuria and chills at home, is on a blood thinner and wonders if this is why. when this happened in the am she drank water and it was better by evening Bladder scan PVR:6cc. [facility] Medical History Hiatal hernia Rectocele Gastritis Hematuria History of hip fracture Dermatitis Hypertension [...] (diabetes mellitus, type 2) Depression Surgical History S/P correction of deviated nasal septum Hx of kyphoplasty H/O: hysterectomy Hx of appendectomy Family History ... Normal [facility] Pap Stain (control)on 2024 Pap Stain (control) ----- Patient Age/Sex Location Account Attending Physician CARL LOUIS 79/F LABSPEC [id number] Dr. Katya Mcleod MD Specimen: [id number] Received: 01/25/25 Status: STACY Luh Num: [id number] Spec Type: CYSPIN FL Subm Dr: Dr. Katya Mcleod MD HEADER OPERATION: Not noted PRE-OP DIAGNOSIS: Gross hematuria TISSUE SUBMITTED: A- Urine for cytology - voided DIAGNOSIS CYTOLOGY A. Urine, voided (cytospin): - Few atypical cells, negative for high grade urothelial carcinoma. CYTOLOGY STUDY Slides are reviewed. CYTOLOGY GROSS A. Received is 45 ml of yellow-hazy fluid labeled with the patient's name and and designated per the requisition as urine. Submitted for cytology preparation. 01/26/2025 CPT: 78738 Signed (signature on file) Dr. Tracy Peres MD 01/31/25 1120 Normal [facility] Comment on above: Performed By: #### P PAPS ####[facility] [address] [place], [place], [address] Absolute lymphocyte countOrd ered By: [facility] Ricahumera Campbellbenedicto on 12-09-2024 Lymphocytes Auto (Unsp spec) [#/Vol] 2.97 10*3/uL 0.83-4.51 [facility] Absolute neutrophil countOrd ered By: [facility] Adrianbenedicto on 12-09-2024 Neutrophils (Bld) [#/Vol] 7.4 10*3/uL 2.0-7.7 [facility] Anion gap in Serum or Plasma Ordered By: bethanyandersonhumera Campbellbenedicto on 12-09-2024 Anion gap [Moles/Vol] 12 mmol/L 5-15 [facility] Automated lymphocyte count a s percentage of total leukocytesOrdered By: [facility] Adrianbenedicto on 12-09-2024 Lymphocytes/100 WBC Auto (Unsp spec) 26.1 % [facility] BUN/creatinine ratioOrdered By: [facility] Adrianbenedicto on 12-09-2024 Urea nitrogen/Creatinine [Mass ratio] 18.1 mg/mg 10- [facility] Basophil percentageOrdered B y: Corky Mensah on 12-09-2024 Basophils/100 WBC (Bld) 0.4 % 0-1 [facility] Bilirubin Test strip Ql (U)O rdered By: Corky Mensah on 12-09-2024 Bilirubin Ql (U) Negative Negative [facility] Bilirubin, totalOrdered By: Corky Mensah on 12-09-2024 Bilirubin [Mass/Vol] 0.31 mg/dL 0.00-1.30 [facility] CBC W/Diff, Automatedon 11-21 Absolute Lymph 2.97 X10 3/uL Normal 0.83-4.51 [facility] Comment on above: Performed By: #### L 500.4050, L100.0100 #### [facility] [address] [place], [address] Absolute Neut 7.4 X10 3/uL Normal 2.0-7.7 [facility] Comment on above: Performed By: #### L 500.4050, L100.0100 #### [facility] [address] [place], [address] Basophils/100 WBC (Bld) 0.4 % Normal 0-1 [facility] Comment on above: Performed By: #### L 500.4050, L100.0100 #### [facility] [address] [place], [address] Eosinophils/100 WBC (Bld) 1.5 % Normal 0-5 [facility] Comment on above: Performed By: #### L 500.4050, L100.0100 #### [facility] [address] [place], [address] Erythrocyte distribution width (RBC) [Ratio] 12.7 % Normal 11.6-14.6 [facility] Comment on above: Performed By: #### L 500.4050, L100.0100 #### [facility] [address] [place], [address] Hematocrit (Bld) [Volume fraction] 39.4 % Normal 37-47 [facility] Comment on above: Performed By: #### L 500.4050, L100.0100 #### [facility] [address] [place], [address] Hemoglobin (Bld) [Mass/Vol] 13.1 g/dL Normal 12.0-15.0 [facility] Comment on above: Performed By: #### L 500.4050, L100.0100 #### [facility] [address] [place], [address] IG% 0.400 Normal 0.0-0.9 [facility] Comment on above: Result Comment: IG% - Immature Granulocytes (promyelocytes, myelocytes and metamyelocytes) > 1% indicates that a LEFT SHIFT is Present. Performed By: #### L 500.4050, L100.0100 #### [facility] [address] [place], [address] Lymphocytes/100 WBC (Bld) 26.1 % Normal 19-41 [facility] Comment on above: Performed By: #### L 500.4050, L100.0100 #### [facility] [address] [place], [address] MCH (RBC) [Entitic mass] 31.1 pg Normal 27.0-32.0 [facility] Comment on above: Performed By: #### L 500.4050, L100.0100 #### [facility] [address] [place], [address] MCHC (RBC) [Mass/Vol] 33.2 g/dL Normal 32-36 [facility] Comment on above: Performed By: #### L 500.4050, L100.0100 #### [facility] [address] [place], [address] MCV (RBC) [Entitic vol] 93.6 fL Normal 81-99 [facility] Comment on above: Performed By: #### L 500.4050, L100.0100 #### [facility] [address] [place], [address] Monocytes/100 WBC (Bld) 6.4 % Normal 0-10 [facility] Comment on above: Performed By: #### L 500.4050, L100.0100 #### [facility] [address] [place], [address] Neutrophils/100 WBC (Bld) 65.2 % Normal 47-70 [facility] Comment on above: Performed By: #### L 500.4050, L100.0100 #### [facility] [address] [place], [address] Nucleated RBC (Bld) [#/Vol] 0 10*3/uL Normal 0-5 [facility] Comment on above: Performed By: #### L 500.4050, L100.0100 #### [facility] [address] [place], [address] Platelet mean volume (Bld) [Entitic vol] 11.0 fL Normal 6.2-12.0 [facility] Comment on above: Performed By: #### L 500.4050, L100.0100 #### [facility] [address] [place], [address] Platelets (Bld) [#/Vol] 264 10*3/uL Normal 150-450 [facility] Comment on above: Performed By: #### L 500.4050, L100.0100 #### [facility] [address] [place], [address] RBC (Bld) [#/Vol] 4.21 10*6/uL Normal 4.2-5.4 [facility] Comment on above: Performed By: #### L 500.4050, L100.0100 #### [facility] [address] [place], [address] RDW SD 43.8 fl Normal 35.1-43.9 [facility] Comment on above: Performed By: #### L 500.4050, L100.0100 #### [facility] [address] [place], [address] WBC (Bld) [#/Vol] 11.4 10*3/uL High 4.4-11.0 [facility] Comment on above: Performed By: #### L 500.4050, L100.0100 #### [facility] [address] [place], [address] Carbon dioxide, total [Moles /volume] in Central venous bloodOrdered By: Corky Mensah on 12-09-2024 CO2 [Moles/Vol] 23.6 mmol/L 21.0-32.0 [facility] Chloride assayOrdered By: Verenice Mensah on 12-09-2024 Chloride [Moles/Vol] 100 mmol/L 98-108 [facility] Comprehensive Metabolic Prof ilon 12-09-2024 Albumin [Mass/Vol] 4.3 g/dL Normal 3.4-4.[address] [facility] Comment on above: Performed By: #### L 500.4050, L100.0100 #### [facility] [address] [place], [address] Albumin/Globulin [Mass ratio] 1.4 {ratio} Normal 0.9-2.4 [facility] Comment on above: Performed By: #### L 500.4050, L100.0100 #### [facility] [address] [place], [address] ALK PHOS 44 U/L Normal 35-104 [facility] Comment on above: Performed By: #### L 500.4050, L100.0100 #### [facility] [address] [place], [address] ALT [Catalytic activity/Vol] 19 U/L Normal <=34 [facility] Comment on above: Performed By: #### L 500.4050, L100.0100 #### [facility] [address] [place], [address] AST [Catalytic activity/Vol] 22 U/L Normal <=31 [facility] Comment on above: Performed By: #### L 500.4050, L100.0100 #### [facility] [address] [place], [address] Bilirubin [Mass/Vol] 0.31 mg/dL Normal 0.00-1.30 [facility] Comment on above: Performed By: #### L 500.4050, L100.0100 #### [facility] [address] [place], [address] BUN/CRE 18.1 RATIO Normal 10-20 [facility] Comment on above: Performed By: #### L 500.4050, L100.0100 #### [facility] [address] [place], [address] Calcium [Mass/Vol] 9.5 mg/dL Normal 7.6-11.[address] [facility] Comment on above: Performed By: #### L 500.4050, L100.0100 #### [facility] [address] [place], [address] Chloride [Moles/Vol] 100 mmol/L Normal 98-108 [facility] Comment on above: Performed By: #### L 500.4050, L100.0100 #### [facility] [address] [place], [address] CO2 [Moles/Vol] 23.6 mmol/L Normal 21.0-32.0 [facility] Comment on above: Performed By: #### L 500.4050, L100.0100 #### [facility] [address] [place], [address] Creatinine [Mass/Vol] 0.64 mg/dL Low 0.70-1.20 [facility] Comment on above: Performed By: #### L 500.4050, L100.0100 #### [facility] [address] [place], [address] GAP 12 Normal 5-15 [facility] Comment on above: Performed By: #### L 500.4050, L100.0100 #### [facility] [address] [place], [address] GFR/1.73 sq M.predicted among non-blacks MDRD (S/P/Bld) [Vol rate/Area] 89 mL/min/{1.73_m2} Normal >60 [facility] Comment on above: Result Comment: mL/m in/1.73m2 CKD-EPI Creatinine Equation (2020) Performed By: #### L 500.4050, L100.0100 #### [facility] [address] [place], [address] Globulin (S) [Mass/Vol] 3.1 g/dL Normal 2.2-4.2 [facility] Comment on above: Performed By: #### L 500.4050, L100.0100 #### [facility] [address] [place], [address] Glucose [Mass/Vol] 90 mg/dL Normal 70-[address] [facility] Comment on above: Performed By: #### L 500.4050, L100.0100 #### [facility] [address] [place], [address] Potassium [Moles/Vol] 4.2 mmol/L Normal 3.3-5.1 [facility] Comment on above: Performed By: #### L 500.4050, L100.0100 #### [facility] [address] [place], [address] Sodium [Moles/Vol] 135 mmol/L Normal 133-[address] [facility] Comment on above: Performed By: #### L 500.4050, L100.0100 #### [facility] [address] [place], [address] T PROT 7.3 g/dL Normal 5.9-8.4 [facility] Comment on above: Performed By: #### L 500.4050, L100.0100 #### [facility] [address] [place], [address] Urea nitrogen [Mass/Vol] 12 mg/dL Normal 4-19 [facility] Comment on above: Performed By: #### L 500.4050, L100.0100 #### [facility] [address] [place], [address] Eosinophil percentageOrdered By: Corky Mensah on 12-09-2024 Eosinophils/100 WBC (Bld) 1.5 % 0-5 [facility] Erythrocyte distribution wid th ratioOrdered By: Corky Mensah on 12-09-2024 Erythrocyte distribution width (RBC) [Ratio] 12.7 % 11.6-14.6 [facility] Erythrocyte distribution wid th standard deviationOrdered By: Meaganandersonhumera Mensah on 12-09-2024 Erythrocyte distribution width (RBC) [Ratio] 43.8 fl 35.1-43.9 [facility] Glomerular filtration rate ( GFR) estimation/1.73 sq m using serum, plasma, or whole bOrdered By: Corky Mensah on 12-09-2024 GFR/1.73 sq M.predicted among non-blacks MDRD (S/P/Bld) [Vol rate/Area] 89 mL/min/{1.73_m2} >60 [facility] Comment on above: mL/min/1.73m2 CKD-EP I Creatinine Equation (2020) Hematocrit Auto (Bld) [Volum e fraction]Ordered By: Corky Mensah on 12-09-2024 Hematocrit (Bld) [Volume fraction] 39.4 % 37-47 [facility] Hemoglobin measurementOrdere d By: Corky Mensah on 12-09-2024 Hemoglobin (Bld) [Mass/Vol] 13.1 g/dL 12.0-15.0 [facility] Immature granulocytes/100 WB C Auto (Bld)Ordered By: Corky Mensah on 12-09-2024 Immature granulocytes/100 WBC (Bld) 0.400 % 0.0-0.9 [facility] Comment on above: IG% - Immature Granu locytes (promyelocytes, myelocytes and metamyelocytes) > 1% indicates that a LEFT SHIFT is Present. Internal Medicine Office Vis iton 12-09-2024 Internal Medicine Office Visit [facility] [address] [place] [address] [place] [address] OFFICE VISIT Date of Service: 12/09/24 MR#: [id number] Acct: [id number] Name: CARL LOUIS Rep #: [id number] : 1945 Provider: Dr. Corky cruz MD Age/Sex: 79/F Location: [facility] Status: Signed Intake Vital Signs 06/08/24 13:56 [...] had right hip surgery post fall in [place], pt requesting ortho referral [facility] Medical History (Updated 12/09/24 @ 16:34 by [...] Colon cancer (more content not included)... Normal [facility] Ketones Test strip Ql (U)Ord ered By: Corky Mensah on 12-09-2024 Ketones Ql (U) Negative Negative [facility] - Chemistry and C hemistry - challengeOrdered By: Corky Mensah on 12-09-2024 AST [Catalytic activity/Vol] 22 U/L <32 [facility] - Hematology and Cell countsOrdered By: Corky Mensah on 12-09-2024 HbA1c (Bld) [Mass fraction] 5.8 % 4.2-6.3 [facility] MCV (mean corpuscular volume ) determinationOrdered By: Corky Mensah on 12-09-2024 MCV (RBC) [Entitic vol] 93.6 fL 81-99 [facility] Mean corpuscular hemoglobin (MCH) determinationOrdered By: Corky Mensah on 12-09-2024 MCH (RBC) [Entitic mass] 31.1 pg 27.0-32.0 [facility] Mean corpuscular hemoglobin concentration (MCHC) determinationOrdered By: Corky Mensah on 12-09-2024 MCHC (RBC) [Mass/Vol] 33.2 g/dL 32-36 [facility] Mean platelet volume determi nationOrdered By: Corky Mensah on 12-09-2024 Platelet mean volume (Bld) [Entitic vol] 11.0 fL 6.2-12.0 [facility] Microscopic analysis of urin e for red blood cells (RBC)Ordered By: Corky Mensah on 12-09-2024 Microscopic analysis of urine for red blood cells (RBC) 0 SEEN /hpf 0-5 [facility] Monocyte percentageOrdered B y: Corky Mensah on 12-09-2024 Monocytes/100 WBC (Bld) 6.4 % 0-10 [facility] Mucus LM Ql (Urine sed)Order ed By: Corky Mensah on 12-09-2024 Mucus Ql (Urine sed) 0 SEEN /hpf [facility] Neutrophil percentageOrdered By: Corky Mensah on 12-09-2024 Neutrophils/100 WBC (Bld) 65.2 % 47-70 [facility] Nitrite Test strip Ql (U)Ord ered By: Corky Mensah on 12-09-2024 Nitrite Ql (U) Negative Negative [facility] Nucleated red blood cell per centageOrdered By: Corky Mensah on 12-09-2024 Nucleated RBC/100 WBC (Bld) [Ratio] 0 % 0-5 [facility] Platelet countOrdered By: Verenice Mensah on 12-09-2024 Platelets (Bld) [#/Vol] 264 10*3/uL 150-450 [facility] Potassium measurement (mass/ volume)Ordered By: Corky Mensah on 12-09-2024 Potassium (Unsp spec) [Mass/Vol] 4.2 mmol/L 3.3-5.1 [facility] Protein Test strip Ql (U)Ord ered By: Corky Mensah on 12-09-2024 Protein Ql (U) Negative Negative [facility] RBC Auto (Bld) [#/Vol]Ordere d By: Corky Mensah on 12-09-2024 RBC (Bld) [#/Vol] 4.21 10*6/uL 4.2-5.4 [facility] Serum creatinine measurement (mass/volume)Ordered By: Corky Mensah on 12-09-2024 Creatinine [Mass/Vol] 0.64 mg/dL Low 0.70-1.20 [facility] Serum globulin measurementOr dered By: Corky Mensah on 12-09-2024 Globulin (S) [Mass/Vol] 3.1 g/dL 2.2-4.2 [facility] Serum glucose measurement (m ass/volume)Ordered By: Corky Mensah on 12-09-2024 Glucose [Mass/Vol] 90 mg/dL 70-[address] [facility] Serum or plasma alanine kang otransferase (ALT) measurementOrdered By: Corky Mensah on 12-09-2024 ALT [Catalytic activity/Vol] 19 U/L <35 [facility] Serum or plasma albumin aleshia urement (mass/volume)Ordered By: Corky Mensah on 12-09-2024 Albumin [Mass/Vol] 4.3 g/dL 3.4-4.[address] [facility] Serum or plasma albumin/glob ulin mass ratioOrdered By: Corky Mensah on 12-09-2024 Albumin/Globulin [Mass ratio] 1.4 {ratio} 0.9-2.4 [facility] Serum or plasma alkaline urmila sphatase measurementOrdered By: Corky Mensah on 12-09-2024 ALP [Catalytic activity/Vol] 44 U/L 35-104 [facility] Serum or plasma calcium aleshia urement (mass/volume)Ordered By: Corky Mensah on 12-09-2024 Calcium [Mass/Vol] 9.5 mg/dL 7.6-11.[address] [facility] Serum or plasma urea nitroge n measurement (mass/volume)Ordered By: Corky Mensah on 12-09-2024 Urea nitrogen [Mass/Vol] 12 mg/dL 4-19 [facility] Sodium levelOrdered By: Meagan Mensah on 12-09-2024 Sodium [Moles/Vol] 135 mmol/L 133-[address] [facility] Squamous epithelial cells de tection in urine sediment by light microscopyOrdered By: Corky Mensah on 12-09-2024 Epithelial cells.squamous LM Ql (Urine sed) 10-25 SEEN /hpf 5-10 [facility] Total proteinOrdered By: Giuliano Mensah on 12-09-2024 Protein [Mass/Vol] 7.3 g/dL 5.9-8.[address] [facility] Transitional cells detection in urine sediment by light microscopyOrdered By: Corky Mensah on 12-09-2024 Transitional cells LM Ql (Urine sed) 0-5 SEEN /hpf 0-5 [facility] Urinalysis, Completeon 12-09 EPI,TRANSITION 0-5 SEEN Normal 0-5 [facility] Comment on above: Order Comment: JUDIE MARADIAGAOR TO SPECIFY Performed By: #### L 400.0001 #### [facility] [address] [place], [place], [id number] EPI,SQUAMOUS 10-25 SEEN Normal 5-10 [facility] Comment on above: Order Comment: JUDIE MARADIAGAOR TO SPECIFY Performed By: #### L 400.0001 #### [facility] [address] [place], [address] BACTERIA RARE Normal None Seen [facility] Comment on above: Order Comment: COLLE CTOR TO SPECIFY Performed By: #### L 400.0001 #### [facility] [address] [place], [address] Mucus Ql (Urine sed) 0 SEEN Normal [facility] Comment on above: Order Comment: JUDIE CTOR TO SPECIFY Performed By: #### L 400.0001 #### [facility] [address] [place], [address] RBC 0 SEEN Normal 0-5 [facility] Comment on above: Order Comment: JUDIE CTOR TO SPECIFY Performed By: #### L 400.0001 #### [facility] [address] [place], [address] WBC 0 SEEN Normal 0-5 [facility] Comment on above: Order Comment: JUDIE CTOR TO SPECIFY Performed By: #### L 400.0001 #### [facility] [address] [place], [address] Urine clarityOrdered By: Giuliano Mensah on 12-09-2024 Clarity (U) Clear Clear [facility] Urine color determinationOrd ered By: Corky Mensah on 12-09-2024 Color (U) Straw Yellow [facility] Urine glucose detectionOrder ed By: Corky Mensah on 12-09-2024 Glucose Ql (U) Normal mg/dl Normal [facility] Urine leukocyte esterase det ection by dipstickOrdered By: Corky Mensah on 12-09-2024 Leukocyte esterase Test strip Ql (U) Negative Negative [facility] Urine pHOrdered By: Kaylyn Mensah on 12-09-2024 pH (U) 7.0 [pH] 5.0 - 8.0 [facility] Urine sediment bacteria coun t by microscopy (number/high power field)Ordered By: Corky Mensah on 12-09-2024 Bacteria LM.HPF (Urine sed) [#/Area] RARE /hpf None Seen [facility] Urine specific gravity measu rementOrdered By: Corky Mensah on 12-09-2024 Specific gravity (U) [Rel density] 1.005 1.002-1.030 [facility] Urine urobilinogen measureme ntOrdered By: Corky Campbellkendrabenedicto on 12-09-2024 Urobilinogen Ql (U) Normal mg/dl Normal [facility] White blood cell (WBC) count Ordered By: Corky Mensah on 12-09-2024 WBC (Bld) [#/Vol] 11.4 10*3/uL High 4.4-11.0 [facility] White blood cell countOrdere d By: Corky Mensah on 12-09-2024 White blood cell count 0 SEEN /hpf 0-5 [facility] Absolute neutrophil countOrd ered By: Corky Mensah on 06-08-2024 Neutrophils (Bld) [#/Vol] 5.5 10*3/uL 2.0-7.7 [facility] Anion gap in Serum or Plasma Ordered By: Corky Mensah on 06-08-2024 Anion gap [Moles/Vol] 11 mmol/L 5-15 [facility] BUN/creatinine ratioOrdered By: bethanyandersonhumera Mensah on 06-08-2024 Urea nitrogen/Creatinine [Mass ratio] 16.1 mg/mg 10-20 [facility] Basophil percentageOrdered B y: Corky Mensah on 06-08-2024 Basophils/100 WBC (Bld) 0.6 % 0-1 [facility] Bilirubin, totalOrdered By: Corky Mensah on 06-08-2024 Bilirubin [Mass/Vol] 0.19 mg/dL 0.00-1.30 [facility] CBC W/Diff, Automatedon 05-21 Absolute Lymph 3.02 X10 3/uL Normal 0.83-4.51 [facility] Comment on above: Performed By: #### L 500.4050, L100.0100, L506.1001 #### [facility] [address] [place], [place], [id number] Absolute Neut 5.5 X10 3/uL Normal 2.0-7.7 [facility] Comment on above: Performed By: #### L 500.4050, L100.0100, L506.1001 #### [facility] [address] [place], [address] Basophils/100 WBC (Bld) 0.6 % Normal 0-1 [facility] Comment on above: Performed By: #### L 500.4050, L100.0100, L506.1001 #### [facility] [address] [place], [address] Eosinophils/100 WBC (Bld) 2.1 % Normal 0-5 [facility] Comment on above: Performed By: #### L 500.4050, L100.0100, L506.1001 #### [facility] [address] [place], [address] Erythrocyte distribution width (RBC) [Ratio] 13.2 % Normal 11.6-14.6 [facility] Comment on above: Performed By: #### L 500.4050, L100.0100, L506.1001 #### [facility] [address] [place], [address] Hematocrit (Bld) [Volume fraction] 38.1 % Normal 37-47 [facility] Comment on above: Performed By: #### L 500.4050, L100.0100, L506.1001 #### [facility] [address] [place], [address] Hemoglobin (Bld) [Mass/Vol] 12.5 g/dL Normal 12.0-15.0 [facility] Comment on above: Performed By: #### L 500.4050, L100.0100, L506.1001 #### [facility] [address] [place], [address] IG% 0.500 Normal 0.0-0.9 [facility] Comment on above: Result Comment: IG% - Immature Granulocytes (promyelocytes, myelocytes and metamyelocytes) > 1% indicates that a LEFT SHIFT is Present. Performed By: #### L 500.4050, L100.0100, L506.1001 #### [facility] [address] [place], [address] Lymphocytes/100 WBC (Bld) 31.2 % Normal 19-41 [facility] Comment on above: Performed By: #### L 500.4050, L100.0100, L506.1001 #### [facility] [address] [place], [address] MCH (RBC) [Entitic mass] 32.1 pg High 27.0-32.0 [facility] Comment on above: Performed By: #### L 500.4050, L100.0100, L506.1001 #### [facility] [address] [place], [address] MCHC (RBC) [Mass/Vol] 32.8 g/dL Normal 32-36 [facility] Comment on above: Performed By: #### L 500.4050, L100.0100, L506.1001 #### [facility] [address] [place], [address] MCV (RBC) [Entitic vol] 97.7 fL Normal 81-99 [facility] Comment on above: Performed By: #### L 500.4050, L100.0100, L506.1001 #### [facility] [address] [place], [address] Monocytes/100 WBC (Bld) 8.6 % Normal 0-10 [facility] Comment on above: Performed By: #### L 500.4050, L100.0100, L506.1001 #### [facility] [address] [place], [address] Neutrophils/100 WBC (Bld) 57.0 % Normal 47-70 [facility] Comment on above: Performed By: #### L 500.4050, L100.0100, L506.1001 #### [facility] [address] [place], [address] Nucleated RBC (Bld) [#/Vol] 0 10*3/uL Normal 0-5 [facility] Comment on above: Performed By: #### L 500.4050, L100.0100, L506.1001 #### [facility] [address] [place], [address] Platelet mean volume (Bld) [Entitic vol] 11.2 fL Normal 6.2-12.0 [facility] Comment on above: Performed By: #### L 500.4050, L100.0100, L506.1001 #### [facility] [address] [place], [address] Platelets (Bld) [#/Vol] 275 10*3/uL Normal 150-450 [facility] Comment on above: Performed By: #### L 500.4050, L100.0100, L506.1001 #### [facility] [address] [place], [address] RBC (Bld) [#/Vol] 3.90 10*6/uL Low 4.2-5.4 [facility] Comment on above: Performed By: #### L 500.4050, L100.0100, L506.1001 #### [facility] [address] [place], [address] RDW SD 47.0 fl High 35.1-43.9 [facility] Comment on above: Performed By: #### L 500.4050, L100.0100, L506.1001 #### [facility] [address] [place], [address] WBC (Bld) [#/Vol] 9.7 10*3/uL Normal 4.4-11.[address] [facility] Comment on above: Performed By: #### L 500.4050, L100.0100, L506.1001 #### [facility] [address] [place], [address] Carbon dioxide, total [Moles /volume] in Central venous bloodOrdered By: Corky Mensah on 06-08-2024 CO2 [Moles/Vol] 25.6 mmol/L 21.0-32.0 [facility] Chloride assayOrdered By: Verenice Mensah on 06-08-2024 Chloride [Moles/Vol] 98 mmol/L 98-108 [facility] Comprehensive Metabolic Prof ilon 06-08-2024 Albumin [Mass/Vol] 4.2 g/dL Normal 3.4-4.[address] [facility] Comment on above: Performed By: #### L 500.4050, L100.0100, L506.1001 #### [facility] [address] [place], [address] Albumin/Globulin [Mass ratio] 1.4 {ratio} Normal 0.9-2.4 [facility] Comment on above: Performed By: #### L 500.4050, L100.0100, L506.1001 #### [facility] [address] [place], [address] ALK PHOS 46 U/L Normal 35-104 [facility] Comment on above: Performed By: #### L 500.4050, L100.0100, L506.1001 #### [facility] [address] [place], [address] ALT [Catalytic activity/Vol] 22 U/L Normal <=34 [facility] Comment on above: Performed By: #### L 500.4050, L100.0100, L506.1001 #### [facility] [address] [place], [address] AST [Catalytic activity/Vol] 21 U/L Normal <=31 [facility] Comment on above: Performed By: #### L 500.4050, L100.0100, L506.1001 #### [facility] [address] [place], [address] Bilirubin [Mass/Vol] 0.19 mg/dL Normal 0.00-1.30 [facility] Comment on above: Performed By: #### L 500.4050, L100.0100, L506.1001 #### [facility] [address] [place], [address] BUN/CRE 16.1 RATIO Normal 10-20 [facility] Comment on above: Performed By: #### L 500.4050, L100.0100, L506.1001 #### [facility] [address] [place], [address] Calcium [Mass/Vol] 9.0 mg/dL Normal 7.6-11.[address] [facility] Comment on above: Performed By: #### L 500.4050, L100.0100, L506.1001 #### [facility] [address] [place], [address] Chloride [Moles/Vol] 98 mmol/L Normal 98-108 [facility] Comment on above: Performed By: #### L 500.4050, L100.0100, L506.1001 #### [facility] [address] [place], [address] CO2 [Moles/Vol] 25.6 mmol/L Normal 21.0-32.0 [facility] Comment on above: Performed By: #### L 500.4050, L100.0100, L506.1001 #### [facility] [address] [place], [address] Creatinine [Mass/Vol] 0.67 mg/dL Low 0.70-1.20 [facility] Comment on above: Performed By: #### L 500.4050, L100.0100, L506.1001 #### [facility] [address] [place], [address] GAP 11 Normal 5-15 [facility] Comment on above: Performed By: #### L 500.4050, L100.0100, L506.1001 #### [facility] [address] [place], [address] GFR/1.73 sq M.predicted among non-blacks MDRD (S/P/Bld) [Vol rate/Area] 89 mL/min/{1.73_m2} Normal >60 [facility] Comment on above: Result Comment: mL/m in/1.73m2 CKD-EPI Creatinine Equation (2020) Performed By: #### L 500.4050, L100.0100, L506.1001 #### [facility] [address] [place], [address] Globulin (S) [Mass/Vol] 2.9 g/dL Normal 2.2-4.2 [facility] Comment on above: Performed By: #### L 500.4050, L100.0100, L506.1001 #### [facility] [address] [place], [address] Glucose [Mass/Vol] 119 mg/dL High 70-[address] [facility] Comment on above: Performed By: #### L 500.4050, L100.0100, L506.1001 #### [facility] [address] [place], [address] Potassium [Moles/Vol] 4.4 mmol/L Normal 3.3-5.1 [facility] Comment on above: Performed By: #### L 500.4050, L100.0100, L506.1001 #### [facility] [address] [place], [address] Sodium [Moles/Vol] 135 mmol/L Normal 133-[address] [facility] [facility] Comment on above: Performed By: #### L 500.4050, L100.0100, L506.1001 #### [facility] [address] [place], [address] T PROT 7.1 g/dL Normal 5.9-8.4 [facility] Comment on above: Performed By: #### L 500.4050, L100.0100, L506.1001 #### [facility] [address] [place], [address] Urea nitrogen [Mass/Vol] 11 mg/dL Normal 4-19 [facility] Comment on above: Performed By: #### L 500.4050, L100.0100, L506.1001 #### [facility] [address] [place], [address] Eosinophil percentageOrdered By: Corky Mensah on 06-08-2024 Eosinophils/100 WBC (Bld) 2.1 % 0-5 [facility] Erythrocyte distribution wid th ratioOrdered By: Corky Mensah on 06-08-2024 Erythrocyte distribution width (RBC) [Ratio] 13.2 % 11.6-14.6 [facility] Erythrocyte distribution wid th standard deviationOrdered By: Corky Mensah on 06-08-2024 Erythrocyte distribution width (RBC) [Entitic vol] 47.0 fL High 35.1-43.9 [facility] GFR/1.73 sq M.predicted colton g non-blacks MDRD (S/P/Bld) [Vol rate/Area]Ordered By: Corky Mensah on 06-08-2024 Estimated GFR (MDRD) Non-Af Amer 89 >60 [facility] Comment on above: mL/min/1.73m2 CKD-EP I Creatinine Equation (2020) Hematocrit Auto (Bld) [Volum e fraction]Ordered By: Corky Mensah on 06-08-2024 Hematocrit (Bld) [Volume fraction] 38.1 % 37-47 [facility] Hemoglobin measurementOrdere d By: Corky Mensah on 06-08-2024 Hemoglobin (Bld) [Mass/Vol] 12.5 g/dL 12.0-15.0 [facility] Immature granulocytes/100 WB C Auto (Bld)Ordered By: Corky Mensah on 06-08-2024 Immature granulocytes/100 WBC (Bld) 0.500 % 0.0-0.9 [facility] Comment on above: IG% - Immature Granu locytes (promyelocytes, myelocytes and metamyelocytes) > 1% indicates that a LEFT SHIFT is Present. Internal Medicine Office Vis iton 06-08-2024 Internal Medicine Office Visit [facility] [address] [place] [address] [place] [address] OFFICE VISIT Date of Service: 06/08/24 MR#: [id number] Acct: [id number] Name: CARL LOUIS Rep #: [id number] : [id number] Provider: Dr. Corky cruz MD Age/Sex: 78/F Location: [facility] Status: Signed Intake Vital Signs 12/09/23 13:34 [...] ABD discomfort for the past couple months [facility] Medical History (Updated 06/08/24 @ 17:17 by [...] housing: house (more content not included)... Normal [facility] L506.1001on 06-08-2024 Vitamin D 25-OH 42.4 ng/mL Normal 30-100 [facility] Comment on above: Result Comment: Catie min D Status Deficiency: <20 ng/mL (50nmol/L) Insufficiency: 20-30 ng/mL (50-75 nmol/L) Sufficiency: 30-100 ng/mL (75-250 nmol/L) Toxicity: >100 ng/mL (>250 nmol/L) Performed By: #### L 500.4050, L100.0100, L506.1001 #### [facility] [address] [place], [address] Laboratory - Chemistry and C hemistry - challengeOrdered By: Corky Mensah on 06-08-2024 AST [Catalytic activity/Vol] 21 U/L <32 [facility] - Hematology and Cell countsOrdered By: Corky Mensah on 06-08-2024 HbA1c (Bld) [Mass fraction] 6.2 % 4.2-6.3 [facility] Lymphocytes Auto (Unsp spec) [#/Vol]Ordered By: Corky Mensah on 06-08-2024 Lymphocytes (Bld) [#/Vol] 3.02 10*3/uL 0.83-4.51 [facility] Lymphocytes/100 WBC Auto (Un sp spec)Ordered By: Corky Mensah on 06-08-2024 Lymphocytes/100 WBC (Bld) 31.2 % 19-41 [facility] MCV (mean corpuscular volume ) determinationOrdered By: Corky Mensah on 06-08-2024 MCV (RBC) [Entitic vol] 97.7 fL 81-99 [facility] Mean corpuscular hemoglobin (MCH) determinationOrdered By: Corky Mensah on 06-08-2024 MCH (RBC) [Entitic mass] 32.1 pg High 27.0-32.0 [facility] Mean corpuscular hemoglobin concentration (MCHC) determinationOrdered By: Corky Mensah on 06-08-2024 MCHC (RBC) [Mass/Vol] 32.8 g/dL 32-36 [facility] Mean platelet volume determi nationOrdered By: Corky Mensah on 06-08-2024 Platelet mean volume (Bld) [Entitic vol] 11.2 fL 6.2-12.0 [facility] Monocyte percentageOrdered B y: Corky Mensah on 06-08-2024 Monocytes/100 WBC (Bld) 8.6 % 0-10 [facility] Neutrophil percentageOrdered By: Corky Mensah on 06-08-2024 Neutrophils/100 WBC (Bld) 57.0 % 47-70 [facility] Nucleated red blood cell per centageOrdered By: Corky Mensah on 06-08-2024 Nucleated RBC/100 WBC (Bld) [Ratio] 0 % 0-5 [facility] Platelet countOrdered By: Verenice Mensah on 06-08-2024 Platelets (Bld) [#/Vol] 275 10*3/uL 150-450 [facility] Potassium (Unsp spec) [Mass/ Vol]Ordered By: Corky Mensah on 06-08-2024 Potassium [Moles/Vol] 4.4 mmol/L 3.3-5.1 [facility] RBC Auto (Bld) [#/Vol]Ordere d By: Corky Mensah on 06-08-2024 RBC (Bld) [#/Vol] 3.90 10*6/uL Low 4.2-5.4 [facility] Serum creatinine measurement (mass/volume)Ordered By: Corky Mensah on 06-08-2024 Creatinine [Mass/Vol] 0.67 mg/dL Low 0.70-1.20 [facility] Serum globulin measurementOr dered By: Corky Mensah on 06-08-2024 Globulin (S) [Mass/Vol] 2.9 g/dL 2.2-4.2 [facility] Serum glucose measurement (m ass/volume)Ordered By: Corky Mensah on 06-08-2024 Glucose [Mass/Vol] 119 mg/dL High 70-[address] [facility] Serum or plasma alanine kang otransferase (ALT) measurementOrdered By: Corky Mensah on 06-08-2024 ALT [Catalytic activity/Vol] 22 U/L <35 [facility] Serum or plasma albumin aleshia urement (mass/volume)Ordered By: Corky Mensah on 06-08-2024 Albumin [Mass/Vol] 4.2 g/dL 3.4-4.[address] [facility] Serum or plasma albumin/glob ulin mass ratioOrdered By: Yashhumera Campbellkendrabenedicto on 06-08-2024 Albumin/Globulin [Mass ratio] 1.4 {ratio} 0.9-2.4 [facility] Serum or plasma alkaline urmila sphatase measurementOrdered By: Verenicebethanytimhumera Campbellkendrabenedicto on 06-08-2024 ALP [Catalytic activity/Vol] 46 U/L 35-104 [facility] Serum or plasma calcium aleshia urement (mass/volume)Ordered By: Corky Mensah on 06-08-2024 Calcium [Mass/Vol] 9.0 mg/dL 7.6-11.[address] [facility] Serum or plasma urea nitroge n measurement (mass/volume)Ordered By: Vereniceberna Campbellkendrabenedicto on 06-08-2024 Urea nitrogen [Mass/Vol] 11 mg/dL 4-19 [facility] Sodium levelOrdered By: Meagan normankarol Makenna on 06-08-2024 Sodium [Moles/Vol] 135 mmol/L 133-[address] [facility] Total proteinOrdered By: Giuliano arauz Makenna on 06-08-2024 Protein [Mass/Vol] 7.1 g/dL 5.9-8.[address] [facility] Vitamin D, 25-hydroxyOrdered By: Verenicebethanytimhumera Mensah on 06-08-2024 Vitamin D 25-Hydroxy 42.4 ng/mL 30-100 [facility] Comment on above: Vitamin D StatusDefi ciency: <20 ng/mL (50nmol/L)Insufficiency: 20-30 ng/mL (50-75 nmol/L)Sufficiency: 30-100 ng/mL (75-250 nmol/L)Toxicity: >100 ng/mL (>250 nmol/L) White blood cell (WBC) count Ordered By: Corky Mensah on 06-08-2024 WBC (Bld) [#/Vol] 9.7 10*3/uL 4.4-11.[address] [facility] Basophil percentageOrdered B y: Katie Reyes on 07-24-2023 Chloride [Moles/Vol] 101 mmol/L 98-107 [facility] Glucose [Mass/Vol] 87 mg/dL 74-[address] [facility] Hemoglobin (Bld) [Mass/Vol] 13.9 g/dL 12.0-15.0 [facility] Potassium [Moles/Vol] 4.7 mmol/L 3.5-5.1 [facility] Sodium [Moles/Vol] 137 mmol/L 136-[address] [facility] WBC (Bld) [#/Vol] 8.8 10*3/uL 4.4-11.[address] [facility] Culture, urineOrdered By: Amena Reyes on 07-24-2023 Bacteria identified Cx Nom (U) Culture exhibits no growth. [facility] Determination of erythrocyte mean corpuscular volume (MCV)Ordered By: Katie Reyes on 07-24-2023 MCV (RBC) [Entitic vol] 97.0 fL 81-99 [facility] Erythrocyte distribution wid th ratioOrdered By: Katie Reyes on 07-24-2023 Erythrocyte distribution width (RBC) [Ratio] 12.3 % 11.6-14.6 [facility] Erythrocyte distribution wid th standard deviationOrdered By: Katie Reyes on 07-24-2023 Erythrocyte distribution width (RBC) [Entitic vol] 44.0 fL 35.1-43.9 [facility] Hematocrit Auto (Bld) [Volum e fraction]Ordered By: Katie Reyes on 07-24-2023 Hematocrit (Bld) [Volume fraction] 42.6 % 37-47 [facility] - Chemistry and C hemistry - challengeOrdered By: Katie Reyes on 07-24-2023 CO2 [Moles/Vol] 30.0 mmol/L 21.0-32.0 [facility] Urea nitrogen/Creatinine [Mass ratio] 15.5 mg/mg 10-20 [facility] - Chemistry and C hemistry - challengeon 07-24-2023 Bilirubin Ql (U) Negative [facility] Glucose Ql (U) Negative [facility] Ketones Ql (U) Small (15+) [facility] pH (U) 6 [pH] [facility] Specific gravity (U) [Rel density] 1.010 [facility] Urobilinogen (U) [Mass/Vol] Negative [facility] - Hematology and Cell countsOrdered By: Katie Reyes on 07-24-2023 MCH (RBC) [Entitic mass] 31.7 pg 27.0-32.0 [facility] MCHC (RBC) [Mass/Vol] 32.6 g/dL 32-36 [facility] Platelet mean volume (Bld) [Entitic vol] 10.9 fL 6.2-12.0 [facility] Platelets (Bld) [#/Vol] 264 10*3/uL 150-450 [facility] - Hematology and Cell countson 07-24-2023 Hemoglobin Ql (U) Moderate [facility] - Specimen inform ationon 07-24-2023 Clarity (U) Cloudy [facility] Color (U) Yellow [facility] - Urinalysison Nitrite Ql (U) Negative [facility] Protein Ql (U) Negative [facility] No Panel InformationOrdered By: Katie Reyes on 07-24-2023 Estimated GFR (MDRD) Amer 102 mL/min >60 [facility] Comment on above: GFR Calc Estimated GFR (MDRD) Non-Af Amer 85 mL/min >60 [facility] Comment on above: Non- GFR Calc No Panel Informationon 07-23 Urine Leukocytes Positive [facility] Urine Non-Hemolyzed Blood Small [facility] RBC Auto (Bld) [#/Vol]Ordere d By: Katie Reyes on 07-24-2023 RBC (Bld) [#/Vol] 4.39 10*6/uL 4.2-5.4 [facility] Serum or plasma calcium aleshia urement (mass/volume)Ordered By: Katie Reyes on 07-24-2023 Calcium [Mass/Vol] 9.4 mg/dL 8.5-10.[address] [facility] Serum or plasma creatinine m easurement (mass/volume)Ordered By: Katie Reyes on 07-24-2023 Creatinine [Mass/Vol] 0.71 mg/dL 0.55-1.02 [facility] Comment on above: The validity of the calculated GFR & GFRAA in patients over 70 years has not been determined. Clinical correlation is essential. Serum or plasma urea nitroge n measurement (mass/volume)Ordered By: Katie Reyes on 07-24-2023 Urea nitrogen [Mass/Vol] 11 mg/dL 7-18 [facility] Thin prep Papanicolaou smear with manual screeningOrdered By: Katie Reyes on 07-24-2023 Thin prep Papanicolaou smear with manual screening 6 5-15 [facility] Absolute lymphocyte countOrd ered By: Corky Mensah on 06-08-2023 Lymphocytes Auto (Unsp spec) [#/Vol] 3.26 10*3/uL 0.83-4.51 [facility] Automated lymphocyte count a s percentage of total leukocytesOrdered By: Corky Mensah on 06-08-2023 Lymphocytes/100 WBC Auto (Unsp spec) 35.5 % 19-41 [facility] Basophil percentageOrdered B y: Corky Mensah on 06-08-2023 Basophils/100 WBC (Bld) 0.3 % 0-1 [facility] Chloride [Moles/Vol] 102 mmol/L 98-107 [facility] Eosinophils/100 WBC (Bld) 2.1 % 0-5 [facility] Glucose [Mass/Vol] 104 mg/dL 74-[address] [facility] Comment on above: Fasting Glucose resu lt from 100 to 125 mg/dL suggests IMPAIRED HOMEOSTASIS per A.D.A. criteria. Hemoglobin (Bld) [Mass/Vol] 13.6 g/dL 12.0-15.0 [facility] Monocytes/100 WBC (Bld) 8.0 % 0-10 [facility] Neutrophils (Bld) [#/Vol] 4.9 10*3/uL 2.0-7.7 [facility] Neutrophils/100 WBC (Bld) 53.4 % 47-70 [facility] Potassium [Moles/Vol] 4.2 mmol/L 3.5-5.1 [facility] Sodium [Moles/Vol] 137 mmol/L 136-[address] [facility] WBC (Bld) [#/Vol] 9.2 10*3/uL 4.4-11.[address] [facility] Determination of erythrocyte mean corpuscular volume (MCV)Ordered By: Corky Mensah on 06-08-2023 MCV (RBC) [Entitic vol] 97.9 fL 81-99 [facility] Erythrocyte distribution wid th ratioOrdered By: Meaganandersonhumera Mensah on 06-08-2023 Erythrocyte distribution width (RBC) [Ratio] 12.9 % 11.6-14.6 [facility] Erythrocyte distribution wid th standard deviationOrdered By: [facility] on 06-08-2023 Erythrocyte distribution width (RBC) [Entitic vol] 46.3 fL 35.1-43.9 [facility] Hematocrit Auto (Bld) [Volum e fraction]Ordered By: [facility] on 06-08-2023 Hematocrit (Bld) [Volume fraction] 41.1 % 37-47 [facility] Immature granulocytes/100 WB C Auto (Bld)Ordered By: [facility] Mens[facility] on 06-08-2023 Immature granulocytes/100 WBC (Bld) 0.700 % 0.0-0.9 [facility] Comment on above: IG% - Immature Granu locytes (promyelocytes, myelocytes and metamyelocytes) > 1% indicates that a LEFT SHIFT is Present. Laboratory - Chemistry and C hemistry - challengeOrdered By: Corky Mensah on 06-08-2023 CO2 [Moles/Vol] 27.0 mmol/L 21.0-32.0 [facility] Urea nitrogen/Creatinine [Mass ratio] 19.0 mg/mg 10-20 [facility] - Hematology and Cell countsOrdered By: Corky Mensah on 06-08-2023 MCH (RBC) [Entitic mass] 32.4 pg 27.0-32.0 [facility] MCHC (RBC) [Mass/Vol] 33.1 g/dL 32-36 [facility] Nucleated RBC/100 WBC (Bld) [Ratio] 0 % 0-5 [facility] Platelet mean volume (Bld) [Entitic vol] 10.8 fL 6.2-12.0 [facility] Platelets (Bld) [#/Vol] 269 10*3/uL 150-450 [facility] No Panel InformationOrdered By: Corky Mensah on 06-08-2023 Estimated GFR (MDRD) Amer 78 mL/min >60 [facility] Comment on above: GFR Calc Estimated GFR (MDRD) Non-Af Amer 65 mL/min >60 [facility] Comment on above: Non- GFR Calc RBC Auto (Bld) [#/Vol]Ordere d By: Corky Mensah on 06-08-2023 RBC (Bld) [#/Vol] 4.20 10*6/uL 4.2-5.4 [facility] Serum or plasma calcium aleshia urement (mass/volume)Ordered By: Corky Mensah on 06-08-2023 Calcium [Mass/Vol] 8.9 mg/dL 8.5-10.[address] [facility] Serum or plasma creatinine m easurement (mass/volume)Ordered By: Corky Mensah on 06-08-2023 Creatinine [Mass/Vol] 0.89 mg/dL 0.55-1.02 [facility] Comment on above: The validity of the calculated GFR & GFRAA in patients over 70 years has not been determined. Clinical correlation is essential. Serum or plasma urea nitroge n measurement (mass/volume)Ordered By: Corky Mensah on 06-08-2023 Urea nitrogen [Mass/Vol] 17 mg/dL 18 [facility] Thin prep Papanicolaou smear with manual screeningOrdered By: Corky Mensah on 06-08-2023 Thin prep Papanicolaou smear with manual screening 8 5-15 [facility] Whole blood hemoglobin A1c/t otal hemoglobin ratio (mass fraction)Ordered By: Corky Mensah on 06-08-2023 HbA1c (Bld) [Mass fraction] 6.0 % 3.8-5.6 [facility] Comment on above: Normal < 5.7 % Predi abetic 5.7 - 6.4 % Diabetic >or= 6.5 % Please note range changes. Absolute lymphocyte countOrd ered By: Fransisco Barroso on 04-22-2023 Lymphocytes Auto (Unsp spec) [#/Vol] 2.45 10*3/uL 0.83-4.51 [facility] Automated lymphocyte count a s percentage of total leukocytesOrdered By: Fransisco Barroso on 04-22-2023 Lymphocytes/100 WBC Auto (Unsp spec) 31.5 % 19-41 [facility] Basophil percentageOrdered B y: Fransisco Barroso on 04-22-2023 Basophils/100 WBC (Bld) 0.5 % 0-1 [facility] Eosinophils/100 WBC (Bld) 2.2 % 0-5 [facility] Hemoglobin (Bld) [Mass/Vol] 10.7 g/dL 12.0-15.0 [facility] Monocytes/100 WBC (Bld) 11.7 % 0-10 [facility] Neutrophils (Bld) [#/Vol] 4.2 10*3/uL 2.0-7.7 [facility] Neutrophils/100 WBC (Bld) 53.6 % 47-70 [facility] WBC (Bld) [#/Vol] 7.8 10*3/uL 4.4-11.[address] [facility] Determination of erythrocyte mean corpuscular volume (MCV)Ordered By: Fransisco Barroso on 04-22-2023 MCV (RBC) [Entitic vol] 98.8 fL 81-99 [facility] Erythrocyte distribution wid th ratioOrdered By: Fransisco Barroso on 04-22-2023 Erythrocyte distribution width (RBC) [Ratio] 12.9 % 11.6-14.6 [facility] Erythrocyte distribution wid th standard deviationOrdered By: Fransisco Barroso on 04-22-2023 Erythrocyte distribution width (RBC) [Entitic vol] 46.7 fL 35.1-43.9 [facility] Hematocrit Auto (Bld) [Volum e fraction]Ordered By: Fransisco Barroso on 04-22-2023 Hematocrit (Bld) [Volume fraction] 33.7 % 37-47 [facility] Immature granulocytes/100 WB C Auto (Bld)Ordered By: Fransisco Barroso on 04-22-2023 Immature granulocytes/100 WBC (Bld) 0.500 % 0.0-0.9 [facility] Comment on above: IG% - Immature Granu locytes (promyelocytes, myelocytes and metamyelocytes) > 1% indicates that a LEFT SHIFT is Present. Laboratory - Hematology and Cell countsOrdered By: Fransisco Barroso on 04-22-2023 MCH (RBC) [Entitic mass] 31.4 pg 27.0-32.0 [facility] MCHC (RBC) [Mass/Vol] 31.8 g/dL 32-36 [facility] Nucleated RBC/100 WBC (Bld) [Ratio] 0 % 0-5 [facility] Platelets (Bld) [#/Vol] 190 10*3/uL 150-450 [facility] Platelet mean volume Corbin-Ec ker (Bld) [Entitic vol]Ordered By: Fransisco Barroso on 04-22-2023 Platelet mean volume (Bld) [Entitic vol] 10.1 fL 6.2-12.0 [facility] RBC Auto (Bld) [#/Vol]Ordere d By: Fransisco Barroso on 04-22-2023 RBC (Bld) [#/Vol] 3.41 10*6/uL 4.2-5.4 [facility] Basophil percentageOrdered B y: Mariella Harris on 04-21-2023 Basophil percentage 3.0 mg/dL 2.5-4.9 [facility] Bilirubin [Mass/Vol] 0.50 mg/dL 0.20-1.00 [facility] Comment on above: For patients on eltr ombopag therapy, use of Dimension Holmes TBIL is not recommended. Chloride [Moles/Vol] 107 mmol/L 98-107 [facility] Glucose [Mass/Vol] 104 mg/dL 74-[address] [facility] Comment on above: Fasting Glucose resu lt from 100 to 125 mg/dL suggests IMPAIRED HOMEOSTASIS per A.D.A. criteria. Potassium [Moles/Vol] 3.8 mmol/L 3.5-5.1 [facility] Protein [Mass/Vol] 6.3 g/dL 6.4-8.[address] [facility] Sodium [Moles/Vol] 137 mmol/L 136-[address] [facility] Laboratory - Chemistry and C hemistry - challengeOrdered By: Mariella Harris on 04-21-2023 Albumin/Globulin [Mass ratio] 0.7 {ratio} 0.9-2.4 [facility] ALP [Catalytic activity/Vol] 52 U/L 45-117 [facility] ALT [Catalytic activity/Vol] 16 U/L 13-56 [facility] CO2 [Moles/Vol] 24.0 mmol/L 21.0-32.0 [facility] Globulin (S) [Mass/Vol] 3.7 g/dL 2.2-4.2 [facility] Magnesium [Mass/Vol] 2.2 mg/dL 1.6-2.6 [facility] Urea nitrogen/Creatinine [Mass ratio] 18.3 mg/mg 10-20 [facility] No Panel InformationOrdered By: Mariella Harris on 04-21-2023 Estimated Creatinine Clearance Calc 49.06 ml/min [facility] Estimated GFR (MDRD) Amer 138 mL/min >60 [facility] Comment on above: GFR Calc Estimated GFR (MDRD) Non-Af Amer 114 mL/min >60 [facility] Comment on above: Non- GFR Calc Methicillin-Resist S.aureus DNA PCR Negative Negative [facility] Serum or plasma calcium aleshia urement (mass/volume)Ordered By: Mariella Harris on 04-21-2023 Calcium [Mass/Vol] 7.9 mg/dL 8.5-10.[address] [facility] Serum or plasma creatinine m easurement (mass/volume)Ordered By: Mariella Harris on 04-21-2023 Creatinine [Mass/Vol] 0.55 mg/dL 0.55-1.02 [facility] Comment on above: The validity of the calculated GFR & GFRAA in patients over 70 years has not been determined. Clinical correlation is essential. Serum or plasma thyroid stim ulating hormone (TSH) measurement (units/volume)Ordered By: Mariella Harris on 04-21-2023 TSH Qn 0.53 uIU/mL 0.358-3.74 [facility] Serum or plasma urea nitroge n measurement (mass/volume)Ordered By: Mariella Harris on 04-21-2023 Urea nitrogen [Mass/Vol] 10 mg/dL 7-18 [facility] Thin prep Papanicolaou smear with manual screeningOrdered By: Mariella Harris on 04-21-2023 Thin prep Papanicolaou smear with manual screening 2.6 g/dL 3.2-5.0 [facility] Thin prep Papanicolaou smear with manual screening 7 U/L 15-37 [facility] Thin prep Papanicolaou smear with manual screening 6 5-15 [facility] Absolute lymphocyte countOrd ered By: Jose E Castro on 04-20-2023 Lymphocytes Auto (Unsp spec) [#/Vol] 2.07 10*3/uL 0.83-4.51 [facility] Automated lymphocyte count a s percentage of total leukocytesOrdered By: Jose E Castro on 04-20-2023 Lymphocytes/100 WBC Auto (Unsp spec) 16.0 % 19-41 [facility] Basophil percentageOrdered B y: Aleksandr Anderson on 04-20-2023 Lactate [Moles/Vol] 0.6 mmol/L 0.4-2.0 [facility] Basophil percentageOrdered B y: Jose E Castro on 04-20-2023 Basophil percentage 0 SEEN /hpf 0-5 [facility] Basophils/100 WBC (Bld) 0.1 % 0-1 [facility] Chloride [Moles/Vol] 102 mmol/L 98-107 [facility] Eosinophils/100 WBC (Bld) 0.1 % 0-5 [facility] Glucose [Mass/Vol] 99 mg/dL 74-[address] [facility] Hemoglobin (Bld) [Mass/Vol] 12.5 g/dL 12.0-15.0 [facility] Monocytes/100 WBC (Bld) 6.9 % 0-10 [facility] Neutrophils (Bld) [#/Vol] 9.9 10*3/uL 2.0-7.7 [facility] Neutrophils/100 WBC (Bld) 76.5 % 47-70 [facility] Potassium [Moles/Vol] 3.8 mmol/L 3.5-5.1 [facility] Sodium [Moles/Vol] 134 mmol/L 136-[address] [facility] WBC (Bld) [#/Vol] 12.9 10*3/uL 4.4-11.0 [facility] Bilirubin Test strip Ql (U)O rdered By: Jose E Castro on 04-20-2023 Bilirubin Ql (U) Negative Negative [facility] Determination of erythrocyte mean corpuscular volume (MCV)Ordered By: Jose E Castro on 04-20-2023 MCV (RBC) [Entitic vol] 94.9 fL 81-99 [facility] Erythrocyte distribution wid th ratioOrdered By: Jose E Castro on 04-20-2023 Erythrocyte distribution width (RBC) [Ratio] 12.6 % 11.6-14.6 [facility] Erythrocyte distribution wid th standard deviationOrdered By: Jose E Castro on 04-20-2023 Erythrocyte distribution width (RBC) [Entitic vol] 44.1 fL 35.1-43.9 [facility] Hematocrit Auto (Bld) [Volum e fraction]Ordered By: Jose E Castro on 04-20-2023 Hematocrit (Bld) [Volume fraction] 37.5 % 37-47 [facility] Immature granulocytes/100 WB C Auto (Bld)Ordered By: Jose E Castro on 04-20-2023 Immature granulocytes/100 WBC (Bld) 0.400 % 0.0-0.9 [facility] Comment on above: IG% - Immature Granu locytes (promyelocytes, myelocytes and metamyelocytes) > 1% indicates that a LEFT SHIFT is Present. Ketones Test strip Ql (U)Ord ered By: Jose E Castro on 04-20-2023 Ketones Ql (U) 15 mg/dl Negative [facility] - Chemistry and C hemistry - challengeOrdered By: Jose E Castro on 04-20-2023 CO2 [Moles/Vol] 25.0 mmol/L 21.0-32.0 [facility] Urea nitrogen/Creatinine [Mass ratio] 15.6 mg/mg 10-20 [facility] - Hematology and Cell countsOrdered By: Jose E Castro on 04-20-2023 MCH (RBC) [Entitic mass] 31.6 pg 27.0-32.0 [facility] MCHC (RBC) [Mass/Vol] 33.3 g/dL 32-36 [facility] Nucleated RBC/100 WBC (Bld) [Ratio] 0 % 0-5 [facility] Platelets (Bld) [#/Vol] 243 10*3/uL 150-450 [facility] Laboratory - Microbiology an d Antimicrobial susceptibilityOrdered By: Aleksandr Anderson on 04-20-2023 Bacteria identified Cx Nom (Bld) No growth in 5 days. [facility] Mucus LM Ql (Urine sed)Order ed By: Jose E Castro on 04-20-2023 Mucus Ql (Urine sed) 0 SEEN /hpf [facility] Nitrite Test strip Ql (U)Ord ered By: Jose E Castro on 04-20-2023 Nitrite Ql (U) Negative Negative [facility] No Panel InformationOrdered By: Mariella Harris on 04-20-2023 Streptococcus pneumoniae Antigen (M [facility] Streptococcus pneumoniae Antigen (M [facility] No Panel InformationOrdered By: Jose E Castro on 04-20-2023 Urine RBC 0 SEEN /hpf 0-5 [facility] Estimated Creatinine Clearance Calc 49.68 ml/min [facility] Estimated GFR (MDRD) Amer 103 mL/min >60 [facility] Comment on above: GFR Calc Estimated GFR (MDRD) Non-Af Amer 85 mL/min >60 [facility] Comment on above: Non- GFR Calc Troponin I High Sensitivity 8 pg/mL 3.0-54.0 [facility] Comment on above: Please Note: New Dianne t Units and Gender Specific Reference Ranges. For more information see Policy Stat Procedure Holmes High Sensitivity Troponin (TNIH) and attachments. Platelet mean volume Corbin-Ec ker (Bld) [Entitic vol]Ordered By: Jose E Castro on 04-20-2023 Platelet mean volume (Bld) [Entitic vol] 10.8 fL 6.2-12.0 [facility] Protein Test strip Ql (U)Ord ered By: Jose E Castro on 04-20-2023 Protein Ql (U) 15 mg/dl Negative [facility] RBC Auto (Bld) [#/Vol]Ordere d By: Jose E Castro on 04-20-2023 RBC (Bld) [#/Vol] 3.95 10*6/uL 4.2-5.4 [facility] Respiratory pathogens detect ion panel by molecular detection methodOrdered By: Jose E Castro on 04-20-2023 Respiratory pathogens DNA and RNA panel TOMAS+probe (Resp) [facility] Respiratory pathogens DNA and RNA panel TOMAS+probe (Resp) [facility] Serum or plasma calcium aleshia urement (mass/volume)Ordered By: Jose E Castro on 04-20-2023 Calcium [Mass/Vol] 8.8 mg/dL 8.5-10.[address] [facility] Serum or plasma creatinine m easurement (mass/volume)Ordered By: Jose E Castro on 04-20-2023 Creatinine [Mass/Vol] 0.71 mg/dL 0.55-1.02 [facility] Comment on above: The validity of the calculated GFR & GFRAA in patients over 70 years has not been determined. Clinical correlation is essential. Serum or plasma urea nitroge n measurement (mass/volume)Ordered By: Jose E Castro on 04-20-2023 Urea nitrogen [Mass/Vol] 11 mg/dL 7-18 [facility] Squamous epithelial cells de tection in urine sediment by light microscopyOrdered By: Jose E Castro on 04-20-2023 Epithelial cells.squamous LM Ql (Urine sed) 0 SEEN /hpf 5-10 [facility] Thin prep Papanicolaou smear with manual screeningOrdered By: Jose E Castro on 04-20-2023 Thin prep Papanicolaou smear with manual screening 7 5-15 [facility] Urine Legionella pneumophila antigen detectionOrdered By: Mariella Harris on 04-20-2023 L. pneumophila Ag Ql (U) [facility] L. pneumophila Ag Ql (U) [facility] Urine blood detectionOrdered By: Jose E Castro on 04-20-2023 RBC Ql (U) 25 /ul Negative [facility] Urine clarityOrdered By: Sahara Castro on 04-20-2023 Clarity (U) Clear Clear [facility] Urine color determinationOrd ered By: Jose E Castro on 04-20-2023 Color (U) Yellow Yellow [facility] Urine glucose detectionOrder ed By: Jose E Castro on 04-20-2023 Glucose Ql (U) Normal mg/dl Normal [facility] Urine leukocyte esterase det ection by dipstickOrdered By: Jose E Castro on 04-20-2023 Leukocyte esterase Test strip Ql (U) Negative Negative [facility] Urine pHOrdered By: Jose E fox on 04-20-2023 pH (U) 7.0 [pH] 5.0 - 8.0 [facility] Urine sediment bacteria coun t by microscopy (number/high power field)Ordered By: Jose E Castro on 04-20-2023 Bacteria LM.HPF (Urine sed) [#/Area] 0 /[HPF] None Seen [facility] Urine specific gravity measu rementOrdered By: Jose E Castro on 04-20-2023 Specific gravity (U) [Rel density] 1.010 1.002-1.030 [facility] Urine urobilinogen measureme ntOrdered By: Jose E Castro on 04-20-2023 Urobilinogen Ql (U) Normal mg/dl Normal [facility] Absolute lymphocyte countOrd ered By: Corky Mensah on 03-06-2023 Lymphocytes Auto (Unsp spec) [#/Vol] 3.27 10*3/uL 0.83-4.51 [facility] Basophil percentageOrdered B y: Corky Mensah on 03-06-2023 Basophils/100 WBC (Bld) 0.6 % 0-1 [facility] Bilirubin [Mass/Vol] 0.30 mg/dL 0.20-1.00 [facility] Comment on above: For patients on eltr ombopag therapy, use of Dimension [place] TBIL is not recommended. Chloride [Moles/Vol] 103 mmol/L 98-107 [facility] Eosinophils/100 WBC (Bld) 2.3 % 0-5 [facility] Glucose [Mass/Vol] 93 mg/dL 74-[address] [facility] Neutrophils (Bld) [#/Vol] 5.7 10*3/uL 2.0-7.7 [facility] Neutrophils/100 WBC (Bld) 56.8 % 47-70 [facility] Potassium [Moles/Vol] 4.3 mmol/L 3.5-5.1 [facility] Protein [Mass/Vol] 8.2 g/dL 6.4-8.[address] [facility] Sodium [Moles/Vol] 138 mmol/L 136-[address] [facility] WBC (Bld) [#/Vol] 10.1 10*3/uL 4.4-11.0 [facility] Blood erythrocytes count (nu mber/volume)Ordered By: Corky Mensah on 03-06-2023 RBC (Bld) [#/Vol] 4.71 10*6/uL 4.2-5.4 [facility] Blood hemoglobin measurement (mass/volume)Ordered By: Corky Adrianjohnny on 03-06-2023 Hemoglobin (Bld) [Mass/Vol] 14.6 g/dL 12.0-15.0 [facility] Blood lymphocytes/100 leukoc ytesOrdered By: Verenicebethanytimhumera Campbellkendrabenedicto on 03-06-2023 Lymphocytes/100 WBC (Bld) 32.5 % 19-41 [facility] Blood monocytes/100 leukocyt esOrdered By: ziyadhumera Campbellkendrabenedicto on 03-06-2023 Monocytes/100 WBC (Bld) 7.3 % 0-10 [facility] Blood platelet mean volumeOr dered By: Yashhumera Campbellkendrabenedicto on 03-06-2023 Platelet mean volume (Bld) [Entitic vol] 11.2 fL 6.2-12.0 [facility] Determination of erythrocyte mean corpuscular volume (MCV)Ordered By: Vereniceberna Campbellkendrabenedicto on 03-06-2023 MCV (RBC) [Entitic vol] 95.3 fL 81-99 [facility] Hematocrit Auto (Bld) [Volum e fraction]Ordered By: Verenicebethanytimhumera Campbellkendrabenedicto on 03-06-2023 Hematocrit (Bld) [Volume fraction] 44.9 % 37-47 [facility] Laboratory - Chemistry and C hemistry - challengeOrdered By: Vereniecbethanytimhumera Campbellkendrabenedicto on 03-06-2023 ALP [Catalytic activity/Vol] 67 U/L 45-117 [facility] ALT [Catalytic activity/Vol] 30 U/L 13-56 [facility] CO2 [Moles/Vol] 31.0 mmol/L 21.0-32.0 [facility] Globulin (S) [Mass/Vol] 4.4 g/dL 2.2-4.2 [facility] Urea nitrogen/Creatinine [Mass ratio] 13.8 mg/mg 10-20 [facility] Laboratory - Hematology and Cell countsOrdered By: Verenicebethanytimhumera Campbellkendrabenedicto on 03-06-2023 Erythrocyte distribution width (RBC) [Entitic vol] 45.1 fL 35.1-43.9 [facility] Erythrocyte distribution width (RBC) [Ratio] 12.8 % 11.6-14.6 [facility] Immature granulocytes/100 WBC (Bld) 0.500 % 0.0-0.9 [facility] Comment on above: IG% - Immature Granu locytes (promyelocytes, myelocytes and metamyelocytes) > 1% indicates that a LEFT SHIFT is Present. MCH (RBC) [Entitic mass] 31.0 pg 27.0-32.0 [facility] Nucleated RBC/100 WBC (Bld) [Ratio] 0 % 0-5 [facility] MCHC Auto (RBC) [Mass/Vol]Or dered By: Corky Mensah on 03-06-2023 MCHC (RBC) [Mass/Vol] 32.5 g/dL 32-36 [facility] No Panel InformationOrdered By: Corky Mensah on 03-06-2023 Estimated GFR (MDRD) Amer 90 mL/min >60 [facility] Comment on above: GFR Calc Estimated GFR (MDRD) Non-Af Amer 74 mL/min >60 [facility] Comment on above: Non- GFR Calc Vitamin D 25-Hydroxy 50.8 ng/mL [facility] Comment on above: Vitamin D 25(OH) Sta tus Range Deficiency <20 ng/mL (50nmol/L) Insufficiency 20 - 30 ng/mL (50 - 75 nmol/L) Sufficiency 30 - 100 ng/mL (75 - 250 nmol/L) Toxicity >100 ng/mL (>250 nmol/L) Platelets bldOrdered By: Giuliano Mensah on 03-06-2023 Platelets (Bld) [#/Vol] 246 10*3/uL 150-450 [facility] Serum or plasma albumin aleshia urement (mass/volume)Ordered By: Corky Mensah on 03-06-2023 Albumin [Mass/Vol] 3.8 g/dL 3.2-5.[address] [facility] Serum or plasma albumin/glob ulin mass ratioOrdered By: Corky Mensah on 03-06-2023 Albumin/Globulin [Mass ratio] 0.9 {ratio} 0.9-2.4 [facility] Serum or plasma calcium aleshia urement (mass/volume)Ordered By: Corky Mensah on 03-06-2023 Calcium [Mass/Vol] 9.2 mg/dL 8.5-10.[address] [facility] Serum or plasma creatinine m easurement (mass/volume)Ordered By: Corky Mensah on 03-06-2023 Creatinine [Mass/Vol] 0.80 mg/dL 0.55-1.02 [facility] Comment on above: The validity of the calculated GFR & GFRAA in patients over 70 years has not been determined. Clinical correlation is essential. Serum or plasma urea nitroge n measurement (mass/volume)Ordered By: Corky Mensah on 03-06-2023 Urea nitrogen [Mass/Vol] 11 mg/dL 7-18 [facility] Thin prep Papanicolaou smear with manual screeningOrdered By: Corky Mensah on 03-06-2023 Thin prep Papanicolaou smear with manual screening 19 U/L [facility] Thin prep Papanicolaou smear with manual screening 4 5- [facility] Whole blood hemoglobin A1c/t otal hemoglobin ratio (mass fraction)Ordered By: Corky Mensah on 03-06-2023 HbA1c (Bld) [Mass fraction] 6.2 % 3.8-5.6 [facility] Comment on above: Normal < 5.7 % Predi abetic 5.7 - 6.4 % Diabetic >or= 6.5 % Please note range changes. Laboratory - Drug toxicology Ordered By: Roberta Edouard on 02-23-2023 Amphetamines Ql (U) Negative <1000 ng/mL [facility] Benzodiazepines Ql (U) Negative < 200 ng/mL [facility] Cannabinoids Screen Ql (U) Negative < 50 ng/mL [facility] Cocaine Ql (U) Negative < 300 ng/mL [facility] Opiates Ql (U) Positive < 300 ng/mL [facility] No Panel InformationOrdered By: Roberta Edouard on 02-23-2023 MDMA (Ecstasy) Screen Negative < 500 ng/mL [facility] Miscellaneous Test See comment [facility] Comment on above: [id number] 6+OXYCODONE-B UND (ng/mL) DRUG RESULT SCREEN CUTOFF____ [...] includes Oxycodone and Oxymorphone. TESTING PERFORMED AT [facility]. ORIGINAL REPORT ON FILE IN LAB CONTAINS ADDITIONAL TEST SITE INFORMATION. Urine Barbiturates Screen Negative < 200 ng/mL [facility] Urine Drug Screen Comment [facility] Comment on above: CONFIRMATORY TESTING FOR ALL [...] TESTING MUST BE ORDERED SEPARATELY. USE TESTMNEMONIC: SDCA Urine Methadone Screen Negative < 300 ng/mL [facility] Urine phencyclidine (PCP) de tectionOrdered By: Roberta Edouard on 02-23-2023 Phencyclidine Ql (U) Negative < 25 ng/mL [facility] Absolute lymphocyte countOrd ered By: Dr. Watters on 03-27-2022 Lymphocytes Auto (Unsp spec) [#/Vol] 3.05 10*3/uL 0.83-4.51 [facility] Basophil percentageOrdered B y: Dr. Watters on 03-27-2022 Basophils/100 WBC (Bld) 0.4 % 0-1 [facility] Bilirubin [Mass/Vol] 0.30 mg/dL 0.20-1.00 [facility] Comment on above: For patients on eltr ombopag therapy, use of Dimension [place] TBIL is not recommended. Chloride [Moles/Vol] 101 mmol/L 98-107 [facility] Eosinophils/100 WBC (Bld) 1.7 % 0-5 [facility] Glucose [Mass/Vol] 97 mg/dL 74-[address] [facility] Neutrophils (Bld) [#/Vol] 6.7 10*3/uL 2.0-7.7 [facility] Neutrophils/100 WBC (Bld) 61.7 % 47-70 [facility] Potassium [Moles/Vol] 3.6 mmol/L 3.5-5.1 [facility] Protein [Mass/Vol] 7.5 g/dL 6.4-8.[address] [facility] Sodium [Moles/Vol] 138 mmol/L 136-[address] [facility] WBC (Bld) [#/Vol] 10.9 10*3/uL 4.4-11.0 [facility] Blood erythrocytes count (nu mber/volume)Ordered By: Dr. Watters on 03-27-2022 RBC (Bld) [#/Vol] 4.55 10*6/uL 4.2-5.4 [facility] Blood hemoglobin measurement (mass/volume)Ordered By: Dr. Watters on 03-27-2022 Hemoglobin (Bld) [Mass/Vol] 14.4 g/dL 12.0-15.0 [facility] Blood lymphocytes/100 leukoc ytesOrdered By: Dr. Watters on 03-27-2022 Lymphocytes/100 WBC (Bld) 27.9 % 19-41 [facility] Blood monocytes/100 leukocyt esOrdered By: Dr. Watters on 03-27-2022 Monocytes/100 WBC (Bld) 7.9 % 0-10 [facility] Blood platelet mean volumeOr dered By: Dr. Watters on 03-27-2022 Platelet mean volume (Bld) [Entitic vol] 10.9 fL 6.2-12.0 [facility] Determination of erythrocyte mean corpuscular volume (MCV)Ordered By: Dr. Watters on 03-27-2022 MCV (RBC) [Entitic vol] 96.3 fL 81-99 [facility] Hematocrit Auto (Bld) [Volum e fraction]Ordered By: Dr. Watters on 03-27-2022 Hematocrit (Bld) [Volume fraction] 43.8 % 37-47 [facility] Laboratory - Chemistry and C hemistry - challengeOrdered By: Dr. Watters on 03-27-2022 ALP [Catalytic activity/Vol] 60 U/L 45-117 [facility] ALT [Catalytic activity/Vol] 31 U/L 13-56 [facility] CO2 [Moles/Vol] 29.0 mmol/L 21.0-32.0 [facility] Globulin (S) [Mass/Vol] 3.7 g/dL 2.2-4.2 [facility] Urea nitrogen/Creatinine [Mass ratio] 14.7 mg/mg 10-20 [facility] Laboratory - Hematology and Cell countsOrdered By: Dr. Watters on 03-27-2022 Erythrocyte distribution width (RBC) [Entitic vol] 50.2 fL 35.1-43.9 [facility] Erythrocyte distribution width (RBC) [Ratio] 14.1 % 11.6-14.6 [facility] Immature granulocytes/100 WBC (Bld) 0.400 % 0.0-0.9 [facility] Comment on above: IG% - Immature Granu locytes (promyelocytes, myelocytes and metamyelocytes) > 1% indicates that a LEFT SHIFT is Present. MCH (RBC) [Entitic mass] 31.6 pg 27.0-32.0 [facility] Nucleated RBC/100 WBC (Bld) [Ratio] 0 % 0-5 [facility] MCHC Auto (RBC) [Mass/Vol]Or dered By: Dr. Watters on 03-27-2022 MCHC (RBC) [Mass/Vol] 32.9 g/dL 32-36 [facility] No Panel InformationOrdered By: Dr. Watters on 03-27-2022 Estimated GFR (MDRD) Amer 88 mL/min >60 [facility] Comment on above: GFR Calc Estimated GFR (MDRD) Non-Af Amer 72 mL/min >60 [facility] Comment on above: Non- GFR Calc Thyroid Stimulating Hormone (TSH) 1.29 uIU/mL 0.358-3.74 [facility] Vitamin D 25-Hydroxy 49.8 ng/mL [facility] Comment on above: Vitamin D 25(OH) Sta tus Range Deficiency <20 ng/mL (50nmol/L) Insufficiency 20 - 30 ng/mL (50 - 75 nmol/L) Sufficiency 30 - 100 ng/mL (75 - 250 nmol/L) Toxicity >100 ng/mL (>250 nmol/L) Platelets bldOrdered By: Dr. Watters on 03-27-2022 Platelets (Bld) [#/Vol] 293 10*3/uL 150-450 [facility] Serum or plasma albumin aleshia urement (mass/volume)Ordered By: Dr. Watters on 03-27-2022 Albumin [Mass/Vol] 3.8 g/dL 3.2-5.[address] [facility] Serum or plasma albumin/glob ulin mass ratioOrdered By: Dr. Watters on 03-27-2022 Albumin/Globulin [Mass ratio] 1.0 {ratio} 0.9-2.4 [facility] Serum or plasma calcium aleshia urement (mass/volume)Ordered By: Dr. Watters on 03-27-2022 Calcium [Mass/Vol] 9.3 mg/dL 8.5-10.[address] [facility] Serum or plasma creatinine m easurement (mass/volume)Ordered By: Dr. Watters on 03-27-2022 Creatinine [Mass/Vol] 0.81 mg/dL 0.55-1.02 [facility] Comment on above: The validity of the calculated GFR & GFRAA in patients over 70 years has not been determined. Clinical correlation is essential. Serum or plasma urea nitroge n measurement (mass/volume)Ordered By: Dr. Watters on 03-27-2022 Urea nitrogen [Mass/Vol] 12 mg/dL 7-18 [facility] Thin prep Papanicolaou smear with manual screeningOrdered By: Dr. Watters on 03-27-2022 Thin prep Papanicolaou smear with manual screening 16 U/L 15-37 [facility] Thin prep Papanicolaou smear with manual screening 8 5-15 [facility] [place] [facility] [place]: Pt remains on H6 for continued care of T3-T8 epidural hematoma in setting of + Factor V Leiden. Clinical Updates: Cont to hold DVT prophylaxis and NSAIDs. Pt up ambulating in halls, pt has declined need for Home Health PT/OT. Discharge Plan: Home with FWW (delivered) Discharge obstacles: None TCC will continue to follow. [facility] Progress Noteon 03-05-2022 Progress Note Discharge instructio ns given to pt. Scripts given to pt. Pt verbalizes understanding. IV removed without complications. Daughter gathered belongings and will drive pt home. Normal [facility] Progress Note Adult Orthopaedic Sp ine [...] BUN 20 (H) 03/02/2022 CREATININE 0.73 03/02/2022 [facility] [id number] 03-04-2022 [id number] Spoke to patient and family member regarding home care therapy services. Pt politely declined home therapy, states she has been getting up and walking, doesn't feel that is needed now. Discussed DME, pt would like FWW for home. DME order placed and Stephan from [facility] informed and will deliver to pt's room. PACC signing off. [facility] Progress Noteon 03-04-2022 Progress Note Occupational Therapy [...] Timed Code Treatment Minutes: (Self--1) MARTHA Pedersen [facility] Progress Note Nutrition update completed. Chart reviewed. Patient to be monitored and followed by the diet processing technician. GABRIELLA Donis [facility] [id number] 03-03-2022 [id number] Importer Or Exporter following case for Discharge Needs. [facility] CARECOORDon 03-03-2022 CAR[place] 76 yo pt transferred to from T2 on 03/01 for continued care of T3-T8 epidural hematoma w/Factor V leiden history. Reg diet. PT/OT ordered, no new notes since here on H6. Last PT notes rec was for Home w/HH PT. Clinical Updates: Hold DVT prophylaxis Discharge Plan: Home, independent vs Home w/HH PT. HC-L following. Discharge obstacles TCC will continue to follow. [facility] Progress Noteon 03-03-2022 Progress Note Discussed transfer o f patient care to Dr Bush. They accepted. Normal [facility] Progress Note Adult Orthopaedic Sp ine [...] 20 (H) 03/02/2022 CREATININE 0.73 03/02/2022 Normal [facility] Progress Note ----- ----- Attestation signed by Dipika Brown MD at 03/03/2022 10:40 AM ~~~~~~~~~~~~~~~~~~~~~~~~~ ~~~~~~~~~~~~~~~~~~~~~~~~~ ~~~~~~~~~~~ ATTENDING ADDENDUM Patient Active Problem List Diagnosis Epidural hematoma Factor V Leiden mutation (CMS/HCC) (HCC) I personally supervised the HYDRO TECHNICIAN/ROXANA-Tashi in the evaluation and development of a [...] any details corrected below. -Per Asim Hendricks HYDRO TECHNICIAN-SYSTEM SUPPORT SPECIALIST -Patient with a T3-8 epidural hematoma, hx [...] day (including chart review, care coordination, and [id number] encounter) was spent discussing/counseling the patient/family regarding [...] coumadin presents as an emergent transfer from [place] [facility] to [facility] ICU for 13 cm epidural hematoma [...] 40 mg, 40 mg, Oral, Daily, Bianca Clrak DO, 40 mg at 03/02/22932 Influenza Vac A&B SA Adj quadrivalent (Fluad) vaccine 0.5 mL, 0.5 mL, IntraMUSCular, Prior to discharge, Bianca Clark DO mirtazapine (Remeron) tablet 37.5 mg, 37.5 mg, Oral, Nightly, Red Hendricks APRN - TIMO, 37.5 mg at 03/02/222033 ondansetron ODT (Zofran-ODT) disintegrating tablet 4 mg, 4 mg, Oral, q8h PRN OR ondansetron (Zofran) injection 4 mg, 4 mg, IntraVENous, q6h PRN, Bianca Clark DO, 4 mg at 02/28/22 08 oxyCODONE (Roxicodone) immediate release tablet 5 mg, 5 mg, Oral, q6h PRN, Bianca Clark DO, 5 mg at 03/02/222254 pantoprazole (ProtoNix) EC tablet 40 mg, 40 mg, Oral, Nightly, Bianca Clark DO, 40 mg at 03/02/222034 polyethylene glycol (PEG) 3350 (Miralax) packet 17 g, 17 g, Oral, Daily, Red Hendricks APRN - [employer] potassium chloride CR (Klor-Con M10) ER tablet 40 mEq, 40 mEq, Oral, Daily, Bianca Clark DO, 40 mEq at 03/02/22 09 pregabalin (Lyrica) capsule 50 mg, 50 mg, Oral, TID, Bianca Clark DO, 50 mg at 03/02/222033 sennosides (Senokot) tablet 17.2 mg, 2 tablet, Oral, BID, Red Hendricks, HYDRO TECHNICIAN - [employer] simethicone (Mylicon) drops 40 mg, 40 mg, Oral, PRN, Bianca Clark, DO sodium chloride 0.9 % infusion, 5-250 mL/hr, IntraVENous, PRN, Bianca Clark DO ARE THERE PERTINENT UPDATES TO PAST,FAMILY, OR SOCIAL HISTORY?: No Subjec (more content not included)... [facility] Progress Noteon 03-02-2022 Progress Note Discussed w [...] discuss risks/benefits of IVC filter w patient. [facility] Progress Note Adult Orthopaedic Sp ine Service [...] Procedure reviewed. Signed by: James Luther MD [facility] ECG 12-LEADon 03-01-2022 ECG 12-LEAD IMPRESSION: Sinus rhythm Borderline T abnormalities, anterior leads Electronically Signed On 03-01-2022 11:32:40 EST by Fransisco Villatoro [facility] Progress Noteon 03-01-2022 Progress Note Adult Orthopaedic [...] Procedure reviewed. Signed by: James Luther MD [facility] Progress Note ----- ----- Attestation signed by [...] didn't), for which patient was transferred to [facility] ICU. She has remained neuro intact throughout. [...] day (including chart review, care coordination, and [id number] encounter) was spent discussing/counseling the patient/family regarding the care plan for Carl Louis. I examined the patient independently and reviewed relevant data myself and may have done so in the context of team rounds. A full chart review was performed. Kristin Saenz MD Division of Trauma Department of Surgery [facility] Pager: [phone] ----- Daily SICU Progress Note Resident 03/01/2022 7:02 AM Admit Date: 02/27/2022 HOSPITAL DAY 2 HISTORY OF PRESENT ILLNESS: 76 year old female with history of factor V Leiden, hx of DVT and PE on coumadin presents as an emergent transfer from [place] ED to [facility] ICU for 13 cm epidural hematoma [...] Daily, Jonh Quinonez DO, 50 mcg at 02/28/22842 furosemide (Lasix) tablet 40 mg, 40 mg, [...] PRN, Fabián Gastelum MD, 4 mg at 02/28/22842 oxyCODONE (Roxicodone) immediate [...] tablet 40 mEq, 40 mEq, Oral, Daily, MELANY Saucedo CNP, 40 mEq at 02/28/22 1400 pregabalin (Lyrica) capsule 50 mg, 50 mg, Oral, TID, Laine Becerra MD, 50 mg at 02/28/222041 simethicone (Mylicon) drops 40 mg, 40 mg, Oral, PRN, Bianca Clark DO sodium chloride 0.9 % infusion, 5-250 mL/hr, IntraVENous, PRN, Fabián Gastelum MD ARE THERE PERTINENT UPDATES TO PAST,FAMILY, OR SOCIAL HISTORY?: No Subjective: 76 (more content not included)... Normal [facility] 02[facility]28[facility] [facility] Managment Initi al Assessment Date: 02/28/2022 Patient Name: Carl Louis : 1945 Patient Information Source of Information: Patient Cognition/Language: WFL - Within Functional Limits Permission given to speak with patient cash application representative/caregiver as indicated: Yes Confirmation of Payer with patient/family: Yes Payer Name: Medicare/[place] Di[employer]eto Cross : Confirmation of Primary Care Physician: [...] Alone Support Systems: Children, Family members, Friends/neighbors, Congregation/elie community Activities of Daily Living Ambulation: Independent Bathing/Dressing: Independent Elimination/Continence/To ileting: Independent Feeding: Independent Who Assists with Activities of Daily Living: Instrumental Activities of Daily Living Prescription Coverage: Yes Pharmacy Used: [facility] in [place] Medication Management: Independent Transportation/Shopping: Independent Transportation [...] Information: Spoke with patient and daughter Yane ([phone]) at bedside. Admitted for epidural hematoma s/p injection for pain management on 02/25. Ortho consulted for spine management, nonoperative at this time due to extensive osteoporosis. OK for GMF. Pt lives independently at home alone in a 2 story ranch with fully finished basement. Pt has support from 3 children and hinduism family. Pt was paralyzed and home was equipped with handicap accessibility except grab bars in shower. PT recommending home with home health PT and rolling walker, referral placed for [facility]. Plans to discharge home, dgtrs will stay with pt for several weeks, will have transportation home. TCC to follow. Tatyana Macdonald RN [facility] Progress Noteon 02-28-2022 Progress Note Adult Orthopaedic [...] Intake/Output Summary (Last 24 hours) at 02/28/2022 6242 Last data filed at 02/28/2022 0930 Gross [...] Procedure reviewed. Signed by: QUENTIN BULLOCK MD [facility] Progress Note Physical Therapy Facility/Department: T2 Physical [...] Independent (without device) Transfer Assistance: Independent Active Radio Script Writer: Yes Occupation: Retired Objective Gross Assessment Gross [...] Score AM-PAC Inpa (more content not included)... [facility] Progress Note Occupational Therapy Facility/Department: T2 Occupational [...] Prognosis: Good Decision Making: Low Complexity Exam: [facility]QU[facility] FOLLOW-UP: Yes Activity Tolerance Activity [...] Independent (without device) Transfer Assistance: Independent Active Radio Script Writer: Yes Occupation: Retired Objective Gross Assessment: Yes [...] Home M (more content not included)... Normal [facility] Progress Note ----- ----- Attestation signed by [...] didn't), for which patient was transferred to [facility] ICU. She has remained neuro intact throughout. [...] negative for VTE - s/p [facility] at [place] --> INR 1.0 today - will defer [...] day (including chart review, care coordination, and eino-op-lpch encounter) was spent discussing/counseling the patient/family regarding the care plan for Carl Louis. I examined the patient independently and reviewed relevant data myself and may have done so in the context of team rounds. A full chart review was performed. Kristin Saenz MD Division of Trauma Department of Surgery [facility] Pager: [phone] ----- Daily SICU Progress Note Resident 02/28/2022 7:58 AM Admit Date: 02/27/2022 HOSPITAL DAY 2 HISTORY OF PRESENT ILLNESS: 76 year old female with history of factor V Leiden, hx of DVT and PE on coumadin presents as an emergent transfer from [place] ED to [facility] ICU for 13 cm epidural hematoma [...] coumadin presents (more content not included)... Normal [facility] Progress Note Adult Orthopaedic Sp ine [...] Procedure reviewed. Signed by: JOSHUA CARR MD [facility] COVID-19 virus antigen assay Ordered By: Dr. Watson on 02-27-2022 SARS-CoV-2 (COVID-19) Ag IA.rapid Ql (Resp) [facility] Consulton 02-27-2022 Consult Nutrition Assessment Type and Reason for Visit: RD Nutrition Re-Screen/LOS Nutrition Recommendations/Plan: Continue with Regular diet. Sign off to dietary service aide. Nutrition Assessment: Pt reports good appetite/intake [employer] TESTER, no food allergies, no weight loss. No nutritional concerns identified. Sophia Ruiz RD Contact: *[phone] or [employer] [facility] Consult Ortho Spine H&P/Cons ult Patient: Carl Louis Date of : 1945 Acct: [id number] PCP: No primary care provider on file. Date of Admission: 02/27/2022 Date of Service: Pt seen/examined on 02/27/2022 Chief Complaint: Back pain after epidural steroid injection History Of Present Illness: 76 y.o. female who presents with thoracic spine pain after an injection at her regular pain clinic in [place] on 02/25. Patient reports she has been [...] thoracic spine and was subsequently transferred to [facility] for further evaluation and management. Patient states [...] % infusion, 5-250 mL/hr, IntraVENous, PRN, Fabián Gasetlum MD sodium chloride 0.9 % infusion, 100 [...] No acute (more content not included)... Normal [facility] Progress Noteon 02-27-2022 Progress Note Entered in error Normal [facility] Progress Note Speech-Cylinder Steamer ology Facility/Department: [place] [address] CLINICAL BEDSIDE SWALLOW EVALUATION NAME: Carl Louis : 1945 ADMISSION DATE: 02/27/2022 ADMITTING DIAGNOSIS: has Epidural hematoma on their problem list. Recent Chest Xray/CT of Chest: None on file this admission. Date of Eval: 02/27/2022 Evaluating Therapist: Melvina Zavala MA, CCC-[employer] Current Diet level: Dietary Orders (From admission, [...] coumadin presents as an emergent transfer from [place] ED to [facility] ICU for 13 cm epidural hematoma [...] noted throughout session. Patient does not require SALES MARKETING services at this time. Treatment Plan Requires [employer] Intervention: No Frequency/Duration: (NA) for Recommended Diet and Intervention Recommend Regular Diet with Thin Liquids + safe swallow strategies. Patient clinically presents with an essentially normal swallow function, no SALES MARKETING services required at this time. Diet Solids [...] alert and sitting upright in bed upon [employer] arrival. [employer]ET[employer] spoke with RN prior to session, no [...] phase of the swallow function. Therapy Time [employer] Individual Minutes Time In: 812 Time Out: 822 Minutes: 10 A surgical mask and gloves were worn throughout session Melvina Zavala MA, CCC-[employer] MARK[employer] 02/27/2022 8:51 AM Normal [facility] Absolute lymphocyte countOrd ered By: Dr. Watson on 02-26-2022 Lymphocytes Auto (Unsp spec) [#/Vol] 2.30 10*3/uL 0.83-4.51 [facility] Basophil percentageOrdered B y: Dr. Watson on 02-26-2022 Basophils/100 WBC (Bld) 0.2 % 0-1 [facility] Chloride [Moles/Vol] 105 mmol/L 98-107 [facility] Eosinophils/100 WBC (Bld) 0.4 % 0-5 [facility] Glucose [Mass/Vol] 121 mg/dL 74-[address] [facility] Comment on above: Fasting Glucose resu lt from 100 to 125 mg/dL suggests IMPAIRED HOMEOSTASIS per A.D.A. criteria. Neutrophils (Bld) [#/Vol] 7.9 10*3/uL 2.0-7.7 [facility] Neutrophils/100 WBC (Bld) 71.3 % 47-70 [facility] Potassium [Moles/Vol] 4.2 mmol/L 3.5-5.1 [facility] Sodium [Moles/Vol] 137 mmol/L 136-[address] [facility] WBC (Bld) [#/Vol] 11.1 10*3/uL 4.4-11.0 [facility] Blood erythrocytes count (nu mber/volume)Ordered By: Dr. Watson on 02-26-2022 RBC (Bld) [#/Vol] 4.07 10*6/uL 4.2-5.4 [facility] Blood hemoglobin measurement (mass/volume)Ordered By: Dr. Watson on 02-26-2022 Hemoglobin (Bld) [Mass/Vol] 12.6 g/dL 12.0-15.0 [facility] Blood lymphocytes/100 leukoc ytesOrdered By: Dr. Watson on 02-26-2022 Lymphocytes/100 WBC (Bld) 20.7 % 19-41 [facility] Blood monocytes/100 leukocyt esOrdered By: Dr. Watson on 02-26-2022 Monocytes/100 WBC (Bld) 7.0 % 0-10 [facility] Blood platelet mean volumeOr dered By: Dr. Watson on 02-26-2022 Platelet mean volume (Bld) [Entitic vol] 10.9 fL 6.2-12.0 [facility] Determination of erythrocyte mean corpuscular volume (MCV)Ordered By: Dr. Watson on 02-26-2022 MCV (RBC) [Entitic vol] 94.1 fL 81-99 [facility] Hematocrit Auto (Bld) [Volum e fraction]Ordered By: Dr. Watson on 02-26-2022 Hematocrit (Bld) [Volume fraction] 38.3 % 37-47 [facility] INR in Blood by Coagulation assayOrdered By: Dr. Watson on 02-26-2022 INR Coag (Bld) [Relative time] 2.0 {INR} [facility] Laboratory - Chemistry and C hemistry - challengeOrdered By: Dr. Watson on 02-26-2022 CO2 [Moles/Vol] 28.0 mmol/L 21.0-32.0 [facility] Urea nitrogen/Creatinine [Mass ratio] 18.8 mg/mg 10-20 [facility] Laboratory - CoagulationOrde red By: Dr. Watson on 02-26-2022 PT Coag (PPP) [Time] 22.0 s 11.7-14.9 [facility] Laboratory - Hematology and Cell countsOrdered By: Dr. Watson on 02-26-2022 Erythrocyte distribution width (RBC) [Entitic vol] 50.9 fL 35.1-43.9 [facility] Erythrocyte distribution width (RBC) [Ratio] 14.7 % 11.6-14.6 [facility] Immature granulocytes/100 WBC (Bld) 0.400 % 0.0-0.9 [facility] Comment on above: IG% - Immature Granu locytes (promyelocytes, myelocytes and metamyelocytes) > 1% indicates that a LEFT SHIFT is Present. MCH (RBC) [Entitic mass] 31.0 pg 27.0-32.0 [facility] Nucleated RBC/100 WBC (Bld) [Ratio] 0 % 0-5 [facility] MCHC Auto (RBC) [Mass/Vol]Or dered By: Dr. Watson on 02-26-2022 MCHC (RBC) [Mass/Vol] 32.9 g/dL 32-36 [facility] No Panel InformationOrdered By: Dr. Watson on 02-26-2022 Estimated Creatinine Clearance Calc 49.25 ml/min [facility] Estimated GFR (MDRD) Amer 106 mL/min >60 [facility] Comment on above: GFR Calc Estimated GFR (MDRD) Non-Af Amer 88 mL/min >60 [facility] Comment on above: Non- GFR Calc Platelets bldOrdered By: Dr. Watson on 02-26-2022 Platelets (Bld) [#/Vol] 233 10*3/uL 150-450 [facility] Serum or plasma calcium aleshia urement (mass/volume)Ordered By: Dr. Watson on 02-26-2022 Calcium [Mass/Vol] 8.9 mg/dL 8.5-10.[address] [facility] Serum or plasma creatinine m easurement (mass/volume)Ordered By: Dr. Watson on 02-26-2022 Creatinine [Mass/Vol] 0.69 mg/dL 0.55-1.02 [facility] Comment on above: The validity of the calculated GFR & GFRAA in patients over 70 years has not been determined. Clinical correlation is essential. Serum or plasma urea nitroge n measurement (mass/volume)Ordered By: Dr. Watson on 02-26-2022 Urea nitrogen [Mass/Vol] 13 mg/dL 7-18 [facility] Thin prep Papanicolaou smear with manual screeningOrdered By: Dr. Watson on 02-26-2022 Thin prep Papanicolaou smear with manual screening 4 5-15 [facility] Laboratory - Drug toxicology on 10-31-2021 Amphetamines Ql (U) Negative <1000 ng/mL [facility] Work Phone: Benzodiazepines Ql (U) Negative < 200 ng/mL [facility] Work Phone: Cannabinoids Screen Ql (U) Negative < 50 ng/mL [facility] Work Phone: Cocaine Ql (U) Negative < 300 ng/mL [facility] Work Phone: Opiates Ql (U) Positive < 300 ng/mL [facility] Work Phone: No Panel Informationon 10-31 MDMA (Ecstasy) Screen Negative < 500 ng/mL [facility] Work Phone: Urine Barbiturates Screen Negative < 200 ng/mL [facility] Work Phone: Urine Drug Screen Comment [facility] Work Phone: Comment on above: CONFIRMATORY TESTING [...] Methadone Screen Negative < 300 ng/mL [facility] Work Phone: Urine phencyclidine (PCP) de tectionon 10-31-2021 Phencyclidine Ql (U) Negative < 25 ng/mL [facility] Work Phone: Absolute lymphocyte counton 08-24-2021 Lymphocytes Auto (Unsp spec) [#/Vol] 1.24 10*3/uL 0.83-4.51 [facility] Work Phone: [phone] Basophil percentageon 2021 Basophils/100 WBC (Bld) 0.3 % 0-1 [facility] Work Phone: [phone] Chloride [Moles/Vol] 108 mmol/L 98-107 [facility] Work Phone: [phone] Eosinophils/100 WBC (Bld) 1.9 % 0-5 [facility] Work Phone: [phone] Glucose [Mass/Vol] 95 mg/dL 74-[address] [facility] Work Phone: [phone] Neutrophils (Bld) [#/Vol] 7.4 10*3/uL 2.0-7.7 [facility] Work Phone: Neutrophils/100 WBC (Bld) 75.4 % 47-70 [facility] Work Phone: Potassium [Moles/Vol] 3.2 mmol/L 3.5-5.1 [facility] Work Phone: Sodium [Moles/Vol] 139 mmol/L 136-145 [facility] Work Phone: WBC (Bld) [#/Vol] 9.8 10*3/uL 4.4-11.0 [facility] Work Phone: Blood erythrocytes count (nu mber/volume)on 08-24-2021 RBC (Bld) [#/Vol] 3.98 10*6/uL 4.2-5.4 [facility]: Blood hemoglobin measurement (mass/volume)on 08-24-2021 Hemoglobin (Bld) [Mass/Vol] 11.3 g/dL 12.0-15.0 [facility] Work Phone: Blood lymphocytes/100 leukoc yteson 08-24-2021 Lymphocytes/100 WBC (Bld) 12.6 % 19-41 [facility] Work Phone: Blood monocytes/100 leukocyt eson 08-24-2021 Monocytes/100 WBC (Bld) 9.3 % 0-10 [facility] Work Phone: Blood platelet mean volumeon 08-24-2021 Platelet mean volume (Bld) [Entitic vol] 10.4 fL 6.2-12.0 [facility] Work Phone: Determination of erythrocyte mean corpuscular volume (MCV)on 08-24-2021 MCV (RBC) [Entitic vol] 88.9 fL 81-99 [facility] Work Phone: Hematocrit Auto (Bld) [Volum e fraction]on 08-24-2021 Hematocrit (Bld) [Volume fraction] 35.4 % 37-47 [facility] Work Phone: INR in Blood by Coagulation assayon 08-24-2021 INR Coag (Bld) [Relative time] 3.6 {INR} [facility] Work Phone: Laboratory - Chemistry and C hemistry - challengeon 08-24-2021 CO2 [Moles/Vol] 26.0 mmol/L 21.0-32.0 [facility] Work Phone: Urea nitrogen/Creatinine [Mass ratio] 13.2 mg/mg 10-20 [facility] Work Phone: Laboratory - Coagulationon 0 08-24-2021 PT Coag (PPP) [Time] 35.8 s 11.7-14.9 [facility] Work Phone: Laboratory - Hematology and Cell countson 08-24-2021 Erythrocyte distribution width (RBC) [Entitic vol] 52.4 fL 35.1-43.9 [facility] Work Phone: Erythrocyte distribution width (RBC) [Ratio] 16.1 % 11.6-14.6 [facility] Work Phone: Immature granulocytes/100 WBC (Bld) 0.500 % 0.0-0.9 [facility] Work Phone: Comment on above: IG% - Immature Granu locytes (promyelocytes, myelocytes and metamyelocytes) > 1% indicates that a LEFT SHIFT is Present. MCH (RBC) [Entitic mass] 28.4 pg 27.0-32.0 [facility] Work Phone: Nucleated RBC/100 WBC (Bld) [Ratio] 0 % 0-5 [facility] Work Phone: [phone] MCHC Auto (RBC) [Mass/Vol]on 08-24-2021 MCHC (RBC) [Mass/Vol] 31.9 g/dL 32-36 [facility] Work Phone: No Panel Informationon 08-24 Estimated Creatinine Clearance Calc 48.92 ml/min [facility] Work Phone: Estimated GFR (MDRD) Amer 144 mL/min >60 [facility] Work Phone: Comment on above: GFR Calc Estimated GFR (MDRD) Non-Af Amer 119 mL/min >60 [facility] Work Phone: Comment on above: Non- GFR Calc Platelets bldon 08-24-2021 Platelets (Bld) [#/Vol] 236 10*3/uL 150-450 [facility] Work Phone: Serum or plasma calcium aleshia urement (mass/volume)on 08-24-2021 Calcium [Mass/Vol] 7.3 mg/dL 8.5-10.[address] [facility] Work Phone: Serum or plasma creatinine m easurement (mass/volume)on 08-24-2021 Creatinine [Mass/Vol] 0.53 mg/dL 0.55-1.02 [facility] Work Phone: Comment on above: The validity of the calculated GFR & GFRAA in patients over 70 years has not been determined. Clinical correlation is essential. Serum or plasma urea nitroge n measurement (mass/volume)on 08-24-2021 Urea nitrogen [Mass/Vol] 7 mg/dL 7-18 [facility] Work Phone: Thin prep Papanicolaou smear with manual screeningon 08-24-2021 Thin prep Papanicolaou smear with manual screening 5 5-15 [facility] Work Phone: Basophil percentageon 2021 Basophil percentage 0-5 SEEN /hpf 0-5 [facility] Work Phone: Bilirubin Test strip Ql (U)o n 08-23-2021 Bilirubin Ql (U) Negative Negative [facility] Work Phone: Ketones Test strip Ql (U)on 08-23-2021 Ketones Ql (U) Negative Negative [facility] Work Phone: Mucus LM Ql (Urine sed)on Mucus Ql (Urine sed) 0 SEEN /hpf [facility] Work Phone: Nitrite Test strip Ql (U)on 08-23-2021 Nitrite Ql (U) Positive Negative [facility] Work Phone: [phone] Protein Test strip Ql (U)on 08-23-2021 Protein Ql (U) Negative Negative [facility] Work Phone: Squamous epithelial cells de tection in urine sediment by light microscopyon 08-23-2021 Epithelial cells.squamous LM Ql (Urine sed) 0-5 SEEN /hpf 5-10 [facility] Work Phone: [phone] Urine blood detectionon 06-0 RBC Ql (U) 25 /ul Negative [facility] Work Phone: [phone] RBC Ql (U) 0 SEEN /hpf 0-5 [facility] Work Phone: Urine clarityon 08-23-2021 Clarity (U) Clear Clear [facility] Work Phone: Urine color determinationon 08-23-2021 Color (U) Yellow Yellow [facility] Work Phone: Urine glucose detectionon Glucose Ql (U) Normal mg/dl Normal [facility] Work Phone: Urine leukocyte esterase det ection by dipstickon 08-23-2021 Leukocyte esterase Test strip Ql (U) Negative Negative [facility] Work Phone: Urine pHon 08-23-2021 pH (U) 6.0 [pH] 5.0 - 8.0 [facility] Work Phone: Urine sediment bacteria coun t by microscopy (number/high power field)on 08-23-2021 Bacteria LM.HPF (Urine sed) [#/Area] RARE /hpf None Seen [facility] Work Phone: Urine specific gravity measu rementon 08-23-2021 Specific gravity (U) [Rel density] 1.010 1.002-1.030 [facility] Work Phone: [phone] Urobilinogen Auto test strip Ql (U)on 08-23-2021 Urobilinogen Ql (U) 1 mg/dl Normal [facility] Work Phone: Absolute lymphocyte counton 07-31-2021 Lymphocytes Auto (Unsp spec) [#/Vol] 3.18 10*3/uL 0.83-4.51 [facility] Work Phone: Basophil percentageon 2021 Basophils/100 WBC (Bld) 0.3 % 0-1 [facility] Work Phone: Bilirubin [Mass/Vol] 0.30 mg/dL 0.20-1.00 [facility] Work Phone: Comment on above: For patients on eltr ombopag therapy, use of Dimension Holmes TBIL is not recommended. Chloride [Moles/Vol] 101 mmol/L 98-107 [facility] Work Phone: Eosinophils/100 WBC (Bld) 1.5 % 0-5 [facility] Work Phone: Glucose [Mass/Vol] 78 mg/dL 74-[address] [facility] Work Phone: Neutrophils (Bld) [#/Vol] 7.2 10*3/uL 2.0-7.7 [facility] Work Phone: Neutrophils/100 WBC (Bld) 61.1 % 47-70 [facility] Work Phone: Potassium [Moles/Vol] 4.1 mmol/L 3.5-5.1 [facility] Work Phone: Protein [Mass/Vol] 7.7 g/dL 6.4-8.[address] [facility] Work Phone: Sodium [Moles/Vol] 138 mmol/L 136-[address] [facility] Work Phone: WBC (Bld) [#/Vol] 11.8 10*3/uL 4.4-11.0 [facility] Work Phone: Blood erythrocytes count (nu mber/volume)on 07-31-2021 RBC (Bld) [#/Vol] 4.35 10*6/uL 4.2-5.4 [facility] Work Phone: [phone] Blood hemoglobin measurement (mass/volume)on 07-31-2021 Hemoglobin (Bld) [Mass/Vol] 12.1 g/dL 12.0-15.0 [facility] Work Phone: Blood lymphocytes/100 leukoc yteson 07-31-2021 Lymphocytes/100 WBC (Bld) 26.9 % 19-41 [facility] Work Phone: Blood monocytes/100 leukocyt eson 07-31-2021 Monocytes/100 WBC (Bld) 9.7 % 0-10 [facility] Work Phone: Blood platelet mean volumeon 07-31-2021 Platelet mean volume (Bld) [Entitic vol] 11.1 fL 6.2-12.0 [facility] Work Phone: [phone] Determination of erythrocyte mean corpuscular volume (MCV)on 07-31-2021 MCV (RBC) [Entitic vol] 88.7 fL 81-99 [facility] Work Phone: [phone] Hematocrit Auto (Bld) [Volum e fraction]on 07-31-2021 Hematocrit (Bld) [Volume fraction] 38.6 % 37-47 [facility] Work Phone: [phone] Laboratory - Chemistry and C hemistry - challengeon 07-31-2021 ALP [Catalytic activity/Vol] 61 U/L 45-117 [facility] Work Phone: ALT [Catalytic activity/Vol] 30 U/L 13-56 [facility] Work Phone: [phone] CO2 [Moles/Vol] 31.0 mmol/L 21.0-32.0 [facility] Work Phone: [phone] Globulin (S) [Mass/Vol] 4.1 g/dL 2.2-4.2 [facility] Work Phone: [phone] Urea nitrogen/Creatinine [Mass ratio] 17.1 mg/mg 10-20 [facility] Work Phone: [phone] Laboratory - Hematology and Cell countson 07-31-2021 Erythrocyte distribution width (RBC) [Entitic vol] 54.6 fL 35.1-43.9 [facility] Work Phone: Erythrocyte distribution width (RBC) [Ratio] 16.9 % 11.6-14.6 [facility] Work Phone: Immature granulocytes/100 WBC (Bld) 0.500 % 0.0-0.9 [facility] Work Phone: Comment on above: IG% - Immature Granu locytes (promyelocytes, myelocytes and metamyelocytes) > 1% indicates that a LEFT SHIFT is Present. MCH (RBC) [Entitic mass] 27.8 pg 27.0-32.0 [facility] Work Phone: Nucleated RBC/100 WBC (Bld) [Ratio] 0.2 % 0-5 [facility] Work Phone: MCHC Auto (RBC) [Mass/Vol]on 07-31-2021 MCHC (RBC) [Mass/Vol] 31.3 g/dL 32-36 [facility] Work Phone: No Panel Informationon 07-31 Estimated GFR (MDRD) Amer 95 mL/min >60 [facility] Work Phone: Comment on above: GFR Calc Estimated GFR (MDRD) Non-Af Amer 78 mL/min >60 [facility] Work Phone: Comment on above: Non- GFR Calc Thyroid Stimulating Hormone (TSH) 1.75 uIU/mL 0.358-3.74 [facility] Work Phone: Vitamin D 25-Hydroxy 46.4 ng/mL [facility] Work Phone: Comment on above: Vitamin D 25(OH) Sta tus Range Deficiency <20 ng/mL (50nmol/L) Insufficiency 20 - 30 ng/mL (50 - 75 nmol/L) Sufficiency 30 - 100 ng/mL (75 - 250 nmol/L) Toxicity >100 ng/mL (>250 nmol/L) Platelets bldon 07-31-2021 Platelets (Bld) [#/Vol] 303 10*3/uL 150-450 [facility] Work Phone: Serum or plasma albumin laeshia urement (mass/volume)on 07-31-2021 Albumin [Mass/Vol] 3.6 g/dL 3.2-5.[address] [facility] Work Phone: Serum or plasma albumin/glob ulin mass ratioon 07-31-2021 Albumin/Globulin [Mass ratio] 0.9 {ratio} 0.9-2.4 [facility] Work Phone: Serum or plasma calcium aleshia urement (mass/volume)on 07-31-2021 Calcium [Mass/Vol] 9.4 mg/dL 8.5-10.[address] [facility] Work Phone: Serum or plasma creatinine m easurement (mass/volume)on 07-31-2021 Creatinine [Mass/Vol] 0.76 mg/dL 0.55-1.02 [facility] Work Phone: Comment on above: The validity of the calculated GFR & GFRAA in patients over 70 years has not been determined. Clinical correlation is essential. Serum or plasma urea nitroge n measurement (mass/volume)on 07-31-2021 Urea nitrogen [Mass/Vol] 13 mg/dL 7-18 [facility] Work Phone: Thin prep Papanicolaou smear with manual screeningon 07-31-2021 Thin prep Papanicolaou smear with manual screening 18 U/L 15-37 [facility] Work Phone: Thin prep Papanicolaou smear with manual screening 6 5-15 [facility] Work Phone: Laboratory - Drug toxicology on 04-15-2021 Amphetamines Ql (U) Negative [facility] Work Phone: Benzodiazepines Ql (U) Negative [facility] Work Phone: Cannabinoids Screen Ql (U) Negative [facility] Work Phone: Cocaine Ql (U) Negative [facility] Work Phone: Opiates Ql (U) Positive [facility] Work Phone: No Panel Informationon 04-15 Miscellaneous Test See comment [facility] Work Phone: Comment on above: [id number] 6+OXYCODONE-B UND (ng/mL) DRUG RESULT SCREEN CUTOFF____ Amphetamines,Urine Negative ng/mL 1000 Amphetamine test includes Amphetamine and Methamphetamine.Barbiturates Negative ng/mL 200Benzodiazepines Negative ng/mL 200Cannabinoid Negative ng/mL 20Cocaine (Metab) Negative ng/mL 300Opiates Positive ng/mL 300 Opiates test includes Codeine, Morphine, Hydromorphone, Hydrocodone. Codeine Negative 300Morphine Negative 300Hydromorphone Negative 300Hydrocodone PositiveHydrocodone Conf,MS,UR 1284 ng/mL 300Oxycodone/Oxymorphone,Urine Negative ng/mL 300 Test includes Oxydodone and Oxymorphone. TESTING PERFORMED AT [facility]. ORIGINAL REPORT ON FILE IN LAB CONTAINS ADDITIONAL TEST SITE INFORMATION. Urine Barbiturates Screen Negative [facility] Work Phone: Urine Drug Screen Comment [facility] Work Phone: Comment on above: CONFIRMATORY TESTING [...] USE TESTMNEMONIC: [facility] Urine Methadone Screen Negative [facility] Work Phone: Urine Methamphetamine-MDMA Screen Negative [facility] Work Phone: Urine phencyclidine (PCP) de tectionon 04-15-2021 Phencyclidine Ql (U) Negative [facility] Work Phone: BASIC METABOLIC PANELon 11-2 Anion gap 4 mmol/L Abnormal 7-16 [facility] Comment on above: Performed By: #### L AB15 ####[facility] CLIA [id number] [place] [address] BUN (urea nitrogen) 8 mg/dL Normal 7-18 [facility] Comment on above: Performed By: #### L AB15 ####[facility] CLIA [id number] [place] [address] Calcium 8.6 mg/dL Normal 8.5-10.1 [facility] Comment on above: Performed By: #### L AB15 ####[facility] CLIA [id number] [place] [address] Chloride 105 mmol/L Normal 98-107 [facility] Comment on above: Performed By: #### L AB15 ####[facility] CLIA [id number] [place] [address] CO2 30 mmol/L Normal 21-32 [facility] Comment on above: Performed By: #### L AB15 ####[facility] CLIA [id number] [place] [address] Creatinine 0.7 mg/dL Normal 0.6-1.30 [facility] Comment on above: Performed By: #### L AB15 ####[facility] CLIA [id number] [place] [address] eGFR (black) mL/min/{1.73_m2} Normal >60 [facility] Comment on above: Result Comment: GFR is estimated using creatinine, age, gender, and race. Patient's values should be interpreted as a trend. For additional information: [email or web address] Performed By: #### L AB15 ####[facility] CLIA [id number] [place] [address] eGFR (non-black) mL/min/{1.73_m2} Normal >60 [facility] Comment on above: Result Comment: GFR is estimated using creatinine, age, gender, and race. Patient's values should be interpreted as a trend. For additional information: [email or web address] Performed By: #### L AB15 ####[facility] CLIA [id number] [place] [address] Glucose mass conc 86 mg/dL Normal 74-106 [facility] Comment on above: Performed By: #### L AB15 ####[facility] CLIA [id number] [facility] [place] [address] Potassium molar conc 4.0 mmol/L Normal 3.5-5.1 [facility] Comment on above: Performed By: #### L AB15 ####[facility] CLIA [id number] [place] [address] Sodium 139 mmol/L Normal 136-145 [facility] Comment on above: Performed By: #### L AB15 ####[facility] CLIA [id number] [facility] [place] [address] CBC W/DIFFon 02-12-2017 Basophils/100 WBC Auto (Bld) 0.3 % Normal [facility] Comment on above: Performed By: #### L [id number] ####[facility] CLIA [id number] [place] [address] BSA (Body Surface Area) 0.0 K/uL Normal 0.0-0.1 [facility] Comment on above: Performed By: #### L [id number] ####[facility] CLIA [id number] [place] [address] Eosinophils 2.0 10*3/uL Normal [facility] Comment on above: Performed By: #### L [id number] ####[facility] CLIA [id number] [place] [address] Eosinophils 0.3 10*3/uL Normal 0.0-0.4 [facility] Comment on above: Performed By: #### L [id number] ####[facility] CLIA [id number] [place] [address] Erythrocyte distribution width Auto Ratio (RBC) 14.7 % Normal 11.7-15.2 [facility] Comment on above: Performed By: #### L [id number] ####[facility] CLIA [id number] [place] [address] Erythrocytes (RBC) 4.16 10*6/uL Normal 3.86-5.17 [facility] Comment on above: Performed By: #### L [id number] ####[facility] CLIA [id number] [place] [address] Hematocrit (HCT) 38.7 % Normal 35.8-46.5 [facility] Comment on above: Performed By: #### L [id number] ####[facility] CLIA [id number] [place] [address] Hemoglobin mass conc (Bld) 12.8 g/dL Normal 12.1-15.8 [facility] Comment on above: Performed By: #### L [id number] ####[facility] CLIA [id number] [place] [address] Lymphocytes 14.9 10*3/uL Normal [facility] Comment on above: Performed By: #### L [id number] ####[facility] CLIA [id number] [place] [address] Lymphocytes 2.0 10*3/uL Normal 0.8-3.6 [facility] Comment on above: Performed By: #### L AB293 ####[facility] CLIA [id number] [place] [address] MCH 30.8 pg Normal 28.4-33.4 [facility] Comment on above: Performed By: #### L [id number] ####[facility] CLIA [id number] [place] [address] MCHC mass conc (RBC) 33.1 g/dL Normal 31.1-37.0 [facility] Comment on above: Performed By: #### L AB293 ####[facility] CLIA [id number] [place] [address] MCV 93.0 fL Normal 85.0-99.0 [facility] Comment on above: Performed By: #### L [id number] ####[facility] CLIA [id number] [place] [address] Monocytes 1.0 10*3/uL Abnormal 0.3-0.9 [facility] Comment on above: Performed By: #### L AB293 ####[facility] CLIA [id number] [place] [address] Monocytes 7.5 10*3/uL Normal [facility] Comment on above: Performed By: #### L AB293 ####[facility] CLIA [id number] [facility] [place] [address] Neutrophils 9.9 10*3/uL Abnormal 2.0-7.3 [facility] Comment on above: Performed By: #### L [id number] ####[facility] CLIA [id number] [facility] [place] [address] Neutrophils 75.3 10*3/uL Normal [facility] Comment on above: Performed By: #### L [id number] ####[facility] CLIA [id number] [facility] [place] [address] Platelets 269 10*3/uL Normal 154-393 [facility] Comment on above: Performed By: #### L [id number] ####[facility] CLIA [id number] [place] [address] WBC (Leukocytes) 13.2 10*3/uL Abnormal 4.0-10.5 [facility] Comment on above: Performed By: #### L AB293 ####[facility] CLIA [id number] [facility] [place] [address] ED Provider Noteson 02-13-20 ED Provider Notes Encounter Department : [facility] Provider Notes by Suzanne Martin DO at 02/12/2017 12:32 PMAuthor: Krissy Langleyice: Emergency MedicineAuthor Type: ED PhysicianFiled: 02/12/2017 12:33 PMDate of Service: 02/12/2017 12:32 PMStatus: SignedEditor: Suzanne Martin DO (ED Physician)I have fully participated in the care of this patient and have had a aylz-dl-vwaj evaluation. Ihave reviewed and agree with all pertinent clinical information, and resident's history, andphysical exam. I have also reviewed the labs,, imaging studies and treatment plan. I have alsoreviewed and agree with the medications, allergies and past medical history section for thispatient. I agree with the diagnosis, and I concur1.Urinary tract infection with hematuria, site unspecified2.Right anterior knee painRedanabetsy Sophia Martin DO02/12/17 1233 [facility] ED Provider Notes Encounter Department : [facility] Provider Notes by Lynnette Wilder [...] tabletTake 5 mg by mouth daily.ALLERGIESAllergiesA llergenReactions -Dixon Oil -Frovatriptan -Imitrex [Sumatriptan Succinate] -Iodine -Vitamin E (Bulk)PHYSICAL EXAMVITAL SIGNS: BP 157/82 Pulse 85 Temp 97.5 ?F (36.4 ?C) Resp 18 Ht 4' 9 (1.448 m) Wt 145lb (65.8 kg) SpO2 99% BMI 31.38 kg/g5Geyrfzhaxiwrnu: Well developed, Well nourished, nontoxic in appearanceHENT: [...] for the following: ResultValueRef RangeStatusUrine ColorOrange (*)YellowFinalGlucose Jqfnovchrc161.0 (*)Negative mg/dLFinalBlood UrinalysisLarge (*)NegativeFinalProtein Urinalysis>=300 (*)Negative mg/dLFinalUrine [...] Abnormal; Notable for the following:Urine White Blood Yamft96-32 (*)0 - 3 /hpfFinalUrine Red Blood Jibwp85-37 (*)0 - 3 /hpfFinalUrine Bacteria1+ (*)Negative /hpfFinalAll [...] up with her primary care doctor in [facility] in the next few days. She is discharged in good condition with appropriate follow-up andreturn precautions.The patient's blood pressure is routinely monitored [...] treatment plan with the patient's best shortand group home care was made in collaboration with the patient or guardian. They are satisfied withthe diagnosis and state their understanding of the current plan of care.I have spoken to the attending physician about this patient and they agree with workup anddisposition.FINAL [id number].Urin deana tract infection with hematuria, site iluygbzirqrE79.0R31.92.Ri ght anterior knee painM25.561This chart has been completed using KeyView Dictation software, and while attempts have beenmade to ensure accuracy, certain words and phrases may not be transcribed as intended.Electronicallysi gned by:Lynnette Wilder, DO02/12/17 1222 Normal [facility] URINALYSIS MICROSCOPIC ONLYo n 02-12-2017 URINE RED BLOOD CELLS 20-50 Abnormal 0-3 [facility] Comment on above: Performed By: #### L [id number], [id number] ####[facility] CLIA [id number] [facility] [place] [address] URINE WHITE BLOOD CELLS 10-20 Abnormal 0-3 [facility] Comment on above: Performed By: #### L AB347, [id number] ####[facility] CLIA [id number] [facility] [place] [address] Urine, bacteria in sediment 1+ /hpf Abnormal Negative [facility] Comment on above: Performed By: #### L AB347, [id number] ####[facility] CLIA [id number] [place] [address] Urine, epithelial cells in sediment 0-3 Normal 0-3 [facility] Comment on above: Performed By: #### L AB347, [id number] ####[facility] CLIA [id number] [place] [address] URINALYSIS W/REFLEX MICROSCO PYon 02-12-2017 BILIRUBIN, UA Small Abnormal Negative [facility] Comment on above: Result Comment: Urin e bilirubin confirmation is no longer performed routinely. A serum total bilirubin or urine ictotest should be ordered if clinically indicated. Performed By: #### L AB347, [id number] ####[facility] CLIA [id number] [place] [address] BLOOD, UA Large Abnormal Negative [facility] Comment on above: Performed By: #### L AB347, [id number] ####[facility] CLIA [id number] [place] [address] GLUCOSE, UA 250.0 mg/dL Abnormal Negative [facility] Comment on above: Performed By: #### L AB347, [id number] ####[facility] CLIA [id number] [place] [address] KETONES, UA Negative Normal Negative [facility] Comment on above: Performed By: #### L AB347, [id number] ####[facility] CLIA [id number] [place] [address] LEUKOCYTES, UA Moderate Abnormal Negative [facility] Comment on above: Performed By: #### L AB347, [id number] ####[facility] CLIA [id number] [place] [address] PH, UA 6.5 Normal 5.0-8.0 [facility] Comment on above: Performed By: #### L AB347, [id number] ####[facility] CLIA [id number] [place] [address] PROTEIN, UA >=300 Abnormal Negative [facility] Comment on above: Performed By: #### L AB347, [id number] ####[facility] CLIA [id number] [place] [address] SPECIFIC GRAVITY, UA 1.005 Normal 1.001-1.035 [facility] Comment on above: Performed By: #### L AB347, [id number] ####[facility] CLIA [id number] [place] [address] Urine, appearance Clear Normal Clear [facility] Comment on above: Performed By: #### L AB347, [id number] ####[facility] CLIA [id number] [place] [address] Urine, color Bronson Abnormal Yellow [facility] Comment on above: Result Comment: Due to color of urine some dipstick values may not be accurate. Performed By: #### L AB347, [id number] ####[facility] CLIA [id number] [place] [address] Urine, nitrite presence Positive Abnormal Negative [facility] Comment on above: Performed By: #### L AB347, [id number] ####[facility] CLIA [id number] [place] [address] UROBILINOGEN, UA 4.0 EU/dL Abnormal 0.2-1.0 [facility] Comment on above: Performed By: #### L AB347, [id number] ####[facility] CLIA [id number] [place] [address] XR-KNEE RIGHT 1-2 VIEWSon XR-KNEE RIGHT 1-2 [...] by: Raji Castro MD, 02/12/2017 11:51 AM [facility] Office Visiton 09-01-2016 Documentation of current medications (procedure) Done Invalid Interpretation Code [facility] Work Phone: [phone] Protein mass conc Done [facility] Work Phone: [phone] Clinical Lists Update: 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-29-2016 Left ventricular Ejection fraction 60 % [facility] Work Phone: [phone] Office Visiton 09-03-2015 Dietary management education, guidance, and counseling (procedure) yes Invalid Interpretation Code [facility] Work Phone: [phone] Documentation of current medications (procedure) Done Invalid Interpretation Code [facility] Work Phone: [phone] Clinical Lists 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: 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 07-09-2015 Alanine aminotransferase (ALT) 29 U/L [facility] Work Phone: [phone] Aspartate aminotransferase (AST) 18 U/L [facility] Work Phone: [phone] BUN/Creatinine Ratio 24.7 mg/mg [facility] Work Phone: [phone] Calcium 8.6 mg/dL [facility] Work Phone: [phone] Chloride 104 mmol/L [facility] Work Phone: [phone] CO2 26.0 mmol/L Invalid Interpretation Code [facility] Work Phone: [phone] CO2 ppres (BldV) 26.0 mmol/L [facility] Work Phone: [phone] Creatinine 0.65 mg/dL [facility] Work Phone: [phone] Hematocrit (HCT) 43.0 % Invalid Interpretation Code [facility] Work Phone: [phone] Hematocrit Volume Fraction (Bld) 43.0 % [facility] Work Phone: [phone] Hemoglobin (HGB) 13.8 g/dL [facility] Work Phone: [phone] Platelets 259 10*3/mm3 Invalid Interpretation Code [facility] Work Phone: [phone] Platelets #/vol (Bld) 259 10*3/mm3 [facility] Work Phone: [phone] Potassium 4.0 mmol/L [facility] Work Phone: [phone] Sodium 138 mmol/L [facility] Work Phone: [phone] Thyroid stimulating hormone (TSH) 0.63 u[iU]/mL [facility] Work Phone: [phone] Urea nitrogen 16 mg/dL [facility] Work Phone: [phone] WBC #/vol (Bld) 10.9 10*3/uL [facility] Work Phone: [phone] WBC (Leukocytes) 10.9 10*3/uL Invalid Interpretation Code [facility] Work Phone: [phone] Clinical Lists Update: 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 01-05-2015 Albumin 3.8 g/dL [facility] Work [phone] Alkaline phosphatase (ALP) 76 U/L Invalid Interpretation Code [facility] Work Phone: [phone] ALP enzyme act/vol (Bld) 76 U/L [facility] Work Phone: [phone] Anion gap 9 mmol/L Invalid Interpretation Code [facility] Work Phone: [phone] Anion gap molar conc 9 mmol/L [facility] Work Phone: [phone] Bilirubin (total) 0.30 mg/dL [facility] Work Phone: [phone] Erythrocytes (RBC) 4.37 10*6/uL Invalid Interpretation Code [facility] Work Phone: [phone] Glucose 127 mg/dL High [facility] Work Phone: [phone] Glucose mass conc 127 mg/dL High [facility] Work Phone: [phone] MCH 31.4 pg Invalid Interpretation Code [facility] Work Phone: [phone] MCH Entitic mass (RBC) 31.4 pg [facility] Work Phone: [phone] MCHC 32.8 g/dL Invalid Interpretation Code [facility] Work Phone: [phone] MCHC mass conc (RBC) 32.8 g/dL [facility] Work Phone: [phone] MCV 95.7 fL Invalid Interpretation Code [facility] Work Phone: [phone] MCV Entitic volume (RBC) 95.7 fL [facility] Work Phone: [phone] RBC #/vol (Bld) 4.37 10*6/uL [facility] Work Phone: [phone] Office Visiton 02-09-2014 Tobacco smoking status NHIS Former smoker [facility] Work Phone: [phone] Tobacco use [facility] Former smoker Invalid Interpretation Code [facility] Work Phone: [phone] Replaced Document: Madeleine Bonilla CG Observationson 02-09-2014 EKG QRS axis -10 deg [facility] Work Phone: [phone] electrocardiogram interpretation Sinus Rhythm WITHIN NORMAL LIMITS Invalid Interpretation Code [facility] Work Phone: [phone] GE use only - for [employer] import when terms are not otherwise specified 390 ms Invalid Interpretation Code [facility] Work Phone: Interpretation Sinus Rhythm WITHIN NORMAL LIMITS [facility] Work Phone: P [place] 43 deg [facility] Work Phone: P wave axis, electrocardiogram 43 deg Invalid Interpretation Code [facility] Work Phone: VA Interval 148 ms [facility] Work Phone: VA interval, electrocardiogram 148 ms Invalid Interpretation Code [facility] Work Phone: Pulse (Heart Rate) 68 /min Invalid Interpretation Code [facility] Work Phone: QRS axis, electrocardiogram -10 deg Invalid Interpretation Code [facility] Work Phone: QRS Duration 90 ms [facility] Work Phone: QRS duration, electrocardiogram 90 ms Invalid Interpretation Code [facility] Work Phone: QT Interval new path ms [facility] Work Phone: QT interval, electrocardiogram new path ms Invalid Interpretation Code [facility] Work Phone: QTc Álvarez 390 ms [facility] Work Phone: [phone] T [place] 18 deg [facility] Work Phone: [phone] T wave axis, electrocardiogram 18 deg Invalid Interpretation Code [facility] Work Phone: [phone] Lab Reporton 12-27-2012 Cholesterol 336 mg/dL [facility] Work Phone: [phone] Cholesterol to HDL Ratio 4.6 {ratio} [facility] Work Phone: [phone] HDL Cholesterol 73 mg/dL [facility] Work Phone: [phone] LDL Cholesterol 234 mg/dL [facility] Work Phone: [phone] Triglyceride 141 mg/dL [facility] Work Phone: [phone] Clinical Lists Update: 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 Corky Mensah MD Work Phone: [facility] 12-09-2024 12:59-0400 Body mass index (BMI) [Ratio] 30.1 kg/m2 Dr. Corky Mensah MD Work Phone: [facility] 12-09-2024 12:59-0400 Body temperature 97.8 [degF] Dr. Corky Mensah MD Work Phone: [facility] 12-09-2024 12:59-0400 Body weight 65.[address] Corky Mensah MD Work Phone: [facility] 12-09-2024 12:59-0400 Diastolic blood pressure 84 mm[Hg] Dr. Corky Mensah MD Work Phone: [facility] 12-09-2024 12:59-0400 Heart rate 91 /min Dr. Corky Mensah MD Work Phone: [facility] 12-09-2024 12:59-0400 Respiratory rate 18 /min Dr. Corky Mensah MD Work Phone: [facility] 12-09-2024 12:59-0400 SaO2% (BldA) [Mass fraction] 95 % Dr. Corky Mensah MD Work Phone: [facility] 12-09-2024 12:59-0400 Systolic blood pressure 142 mm[Hg] Dr. Corky Mensah MD Work Phone: [facility] 06-08-2024 13:56-0400 Body height 147.[address] Corky Mensah MD Work Phone: [facility] 06-08-2024 13:56-0400 Body mass index (BMI) [Ratio] 31.5 kg/m2 Dr. Corky Mensah MD Work Phone: [facility] 06-08-2024 13:56-0400 Body temperature 97.4 [degF] Dr. Corky Mensah MD Work Phone: [facility] 06-08-2024 13:56-0400 Body weight 68.[address] Corky Mensah MD Work Phone: [facility] 06-08-2024 13:56-0400 Diastolic blood pressure 80 mm[Hg] Dr. Corky Mensah MD Work Phone: [facility] 06-08-2024 13:56-0400 Heart rate 71 /min Dr. Corky Mensah MD Work Phone: [facility] 06-08-2024 13:56-0400 Respiratory rate 18 /min Dr. Corky Mensah MD Work Phone: [facility] 06-08-2024 13:56-0400 SaO2% (BldA) [Mass fraction] 95 % Dr. Corky Mensah MD Work Phone: [facility] 06-08-2024 13:56-0400 Systolic blood pressure 130 mm[Hg] Dr. Corky Mensah MD Work Phone: [facility] 07-24-2023 09:47-0400 Body height 147.[address] Corky Mensah Work Phone: [facility] 07-24-2023 09:47-0400 Body mass index (BMI) [Ratio] 31 kg/m2 Dr. Corky Mensah Work Phone: [facility] 07-24-2023 09:47-0400 Body temperature 97 [degF] Dr. Corky Mensah Work Phone: [facility] 07-24-2023 09:47-0400 Body weight 67.[address] Corky Mensah Work Phone: [facility] 07-24-2023 09:47-0400 Diastolic blood pressure 60 mm[Hg] Dr. Corky Mensah Work Phone: [facility] 07-24-2023 09:47-0400 Heart rate 78 /min Dr. Corky Mensah Work Phone: [facility] 07-24-2023 09:47-0400 Respiratory rate 16 /min Dr. Corky Mensah Work Phone: [facility] 07-24-2023 09:47-0400 SaO2% (BldA) [Mass fraction] 96 % Dr. Corky Mensah Work Phone: [facility] 07-24-2023 09:47-0400 Systolic blood pressure 116 mm[Hg] Dr. Corky Mensah Work Phone: [facility] 06-08-2023 13:20-0400 Body height 147.[address] Theo Watters Work Phone: [facility] 06-08-2023 13:20-0400 Body mass index (BMI) [Ratio] 30.7 kg/m2 Dr. Theo Watters Work Phone: 2(605)561-533324 [place] [address] 06-08-2023 13:20-0400 Body temperature 98.2 [degF] Dr. Theo Watters Work Phone: 9(892)347-526924 [place] [address] 06-08-2023 13:20-0400 Body weight 66.[address] Theo Watters Work Phone: 3(292)400-401193 [place] [address] 06-08-2023 13:20-0400 Diastolic blood pressure 76 mm[Hg] Dr. Theo Watters Work Phone: 8(289)736-765793 [place] [address] 06-08-2023 13:20-0400 Heart rate 70 /min Dr. Theo Watters Work Phone: 7(516)997-733293 [place] [address] 06-08-2023 13:20-0400 Respiratory rate 16 /min Dr. Theo Watters Work Phone: 8(512)968-071993 [place] [address] 06-08-2023 13:20-0400 SaO2% (BldA) [Mass fraction] 97 % Dr. Theo Watters Work Phone: 4(338)671-396793 [place] [address] 06-08-2023 13:20-0400 Systolic blood pressure 138 mm[Hg] Dr. Teho Watters Work Phone: 2(133)675-719893 [place] [address] 04-24-2023 09:10-0500 Body mass index (BMI) [Ratio] 29.2 kg/m2 Dr. Theo Watters Work Phone: 3(351)276-863224 [place] [address] 04-24-2023 09:10-0500 Body temperature 97.1 [degF] Dr. Theo Watters Work Phone: 3(265)608-435924 [place] [address] 04-24-2023 09:10-0500 Body weight 63.[address] Theo Watters Work Phone: 2(713)651-798424 [place] [address] 04-24-2023 09:10-0500 Diastolic blood pressure 62 mm[Hg] Dr. Theo Watters Work Phone: 7(539)856-601362 [address] 04-24-2023 09:10-0500 Heart rate 77 /min Dr. Theo Watters Work Phone: [facility] 04-24-2023 09:10-0500 Respiratory rate 16 /min Dr. Theo Watters Work Phone: [facility] 04-24-2023 09:10-0500 SaO2% (BldA) [Mass fraction] 95 % Dr. Theo Watters Work Phone: [facility] 04-24-2023 09:10-0500 Systolic blood pressure 116 mm[Hg] Dr. Theo Watters Work Phone: [facility] 04-22-2023 14:43-0500 Body temperature 98 [degF] Dr. Theo Watters Work Phone: [facility] 04-22-2023 14:43-0500 Diastolic blood pressure 61 mm[Hg] Dr. Theo Watters Work Phone: [facility] 04-22-2023 14:43-0500 Heart rate 89 /min Dr. Theo Watters Work Phone: [facility] 04-22-2023 14:43-0500 Respiratory rate 16 /min Dr. Theo Watters Work Phone: [facility] 04-22-2023 14:43-0500 SaO2% (BldA) [Mass fraction] 91 % Dr. Theo Watters Work Phone: [facility] 04-22-2023 14:43-0500 Systolic blood pressure 121 mm[Hg] Dr. Theo Watters Work Phone: [facility] 04-22-2023 08:00-0500 Inhaled oxygen flow rate 1 L/min Dr. Theo Watters Work Phone: [facility] 04-21-2023 09:52-0500 Body height 147.[address] Theo Watters Work Phone: [facility] 04-21-2023 09:52-0500 Body weight 65.[address] Theo Watters Work Phone: [facility] 04-21-2023 01:14-0500 Body mass index (BMI) [Ratio] 30.3 kg/m2 Dr. Theo Watters Work Phone: 1(432)280-525824 [place] [address] 04-21-2023 00:00-0500 Body temperature 98.6 [degF] Dr. Theo Watters Work Phone: 8(586)505-685424 [place] [address] 04-21-2023 00:00-0500 Diastolic blood pressure 79 mm[Hg] Dr. Theo Watters Work Phone: 7(058)295-644924 [place] [address] 04-21-2023 00:00-0500 Heart rate 75 /min Dr. Theo Watters Work Phone: 4(018)649-988562 [address] 04-21-2023 00:00-0500 Inhaled oxygen flow rate 2 L/min Dr. Theo Watters Work Phone: 8(783)009-358062 [address] 04-21-2023 00:00-0500 Respiratory rate 18 /min Dr. Theo Watters Work Phone: 1(315)581-196524 [place] [address] 04-21-2023 00:00-0500 SaO2% (BldA) [Mass fraction] 95 % Dr. Theo Watters Work Phone: 5(148)005-456624 [place] [address] 04-21-2023 00:00-0500 Systolic blood pressure 134 mm[Hg] Dr. Theo Watters Work Phone: 9(656)053-439062 [address] 04-20-2023 20:17-0500 Body height 147.[address] Theo Watters Work Phone: 2(273)627-564424 [place] [address] 04-20-2023 20:17-0500 Body mass index (BMI) [Ratio] 31.1 kg/m2 Dr. Theo Watters Work Phone: 2(752)443-908424 [place] [address] 04-20-2023 20:17-0500 Body weight 67.[address] Theo Watters Work Phone: 6(500)328-298793 [place] [address] 04-16-2023 13:54-0500 Body mass index (BMI) [Ratio] 30.1 kg/m2 Dr. Theo Watters Work Phone: [facility] 04-16-2023 13:54-0500 Body temperature 98.7 [degF] Dr. Theo Watters Work Phone: [facility] 04-16-2023 13:54-0500 Body weight 65.[address] Theo Watters Work Phone: [facility] 04-16-2023 13:54-0500 Diastolic blood pressure 82 mm[Hg] Dr. Theo Watters Work Phone: 0(154)345-375724 [place] [address] 04-16-2023 13:54-0500 Heart rate 70 /min Dr. Theo Watters Work Phone: 6(576)837-978493 [place] [address] 04-16-2023 13:54-0500 Respiratory rate 18 /min Dr. Theo Watters Work Phone: 2(697)179-202893 [place] [address] 04-16-2023 13:54-0500 SaO2% (BldA) [Mass fraction] 96 % Dr. Theo Watters Work Phone: 2(629)907-342024 [place] [address] 04-16-2023 13:54-0500 Systolic blood pressure 144 mm[Hg] Dr. Theo Watters Work Phone: 0(051)891-865024 [place] [address] 04-07-2023 12:07-0500 Body mass index (BMI) [Ratio] 29.9 kg/m2 Dr. Theo Watters Work Phone: 7(467)173-639724 [place] [address] 04-07-2023 12:07-0500 Body temperature 98.2 [degF] Dr. Theo Watters Work Phone: 6(712)804-719724 [place] [address] 04-07-2023 12:07-0500 Body weight 64.[address] Theo Watters Work Phone: 1(847)560-319024 [place] [address] 04-07-2023 12:07-0500 Diastolic blood pressure 74 mm[Hg] Dr. Theo Watters Work Phone: 0(975)900-941224 [place] [address] 04-07-2023 12:07-0500 Heart rate 88 /min Dr. Theo Watters Work Phone: 7(246)017-599824 [place] [address] 04-07-2023 12:07-0500 Respiratory rate 12 /min Dr. Theo Watters Work Phone: [facility] 04-07-2023 12:07-0500 SaO2% (BldA) [Mass fraction] 95 % Dr. Theo Watters Work Phone: [facility] 04-07-2023 12:07-0500 Systolic blood pressure 108 mm[Hg] Dr. Theo Watters Work Phone: [facility] 03-20-2023 13:47-0500 Body mass index (BMI) [Ratio] 29.9 kg/m2 Dr. Theo Watters Work Phone: [facility] 03-20-2023 13:47-0500 Body temperature 98.4 [degF] Dr. Theo Watters Work Phone: [facility] 03-20-2023 13:47-0500 Body weight 64.[address] Theo Watters Work Phone: [facility] 03-20-2023 13:47-0500 Diastolic blood pressure 68 mm[Hg] Dr. Theo Watters Work Phone: [facility] 03-20-2023 13:47-0500 Heart rate 96 /min Dr. Theo Watters Work Phone: [facility] 03-20-2023 13:47-0500 Respiratory rate 16 /min Dr. Theo Watters Work Phone: [facility] 03-20-2023 13:47-0500 SaO2% (BldA) [Mass fraction] 93 % Dr. Theo Watters Work Phone: [facility] 03-20-2023 13:47-0500 Systolic blood pressure 131 mm[Hg] Dr. Theo Watters Work Phone: [facility] 03-06-2023 12:37-0500 Body height 147.[address] Theo Watters Work Phone: [facility] 03-06-2023 12:37-0500 Body mass index (BMI) [Ratio] 29.2 kg/m2 Dr. Theo Watters Work Phone: [facility] 03-06-2023 12:37-0500 Body temperature 97.6 [degF] Dr. Theo Watters Work Phone: [facility] 03-06-2023 12:37-0500 Body weight 63.[address] Theo Watters Work Phone: [facility] 03-06-2023 12:37-0500 Diastolic blood pressure 80 mm[Hg] Dr. Theo Watters Work Phone: [facility] 03-06-2023 12:37-0500 Heart rate 82 /min Dr. Theo Watters Work Phone: [facility] 03-06-2023 12:37-0500 Respiratory rate 16 /min Dr. Theo Watters Work Phone: [facility] 03-06-2023 12:37-0500 SaO2% (BldA) [Mass fraction] 96 % Dr. Theo Watters Work Phone: [facility] 03-06-2023 12:37-0500 Systolic blood pressure 124 mm[Hg] Dr. Theo Watters Work Phone: [facility] 02-27-2022 03:42-0500 Diastolic blood pressure 76 mm[Hg] [facility] 02-27-2022 03:42-0500 Heart rate 92 /min [facility] 02-27-2022 03:42-0500 Respiratory rate 20 /min [facility] 02-27-2022 03:42-0500 SaO2% (BldA) [Mass fraction] 95 % [facility] 02-27-2022 03:42-0500 Systolic blood pressure 128 mm[Hg] [facility] 02-26-2022 20:55-0500 Body height 147.32 cm [facility] 02-26-2022 20:55-0500 Body mass index (BMI) [Ratio] 30.5 kg/m2 [facility] 02-26-2022 20:55-0500 Body temperature 98.3 [degF] [facility] 02-26-2022 20:55-0500 Body weight 66.22 kg [facility] 08-24-2021 02:42-0400 Diastolic blood pressure 51 mm[Hg] [facility] Work Phone: 08-24-2021 02:42-0400 Heart rate 80 /min [facility] Work Phone: 08-24-2021 02:42-0400 Respiratory rate 16 /min [facility] Work Phone: 08-24-2021 02:42-0400 SaO2% (BldA) [Mass fraction] 90 % [facility] Work Phone: 08-24-2021 02:42-0400 Systolic blood pressure 143 mm[Hg] [facility] Work Phone: 08-23-2021 23:09-0400 Body height 144.78 cm [facility] Work Phone: 08-23-2021 23:09-0400 Body mass index (BMI) [Ratio] 31.4 kg/m2 [facility] Work Phone: 08-23-2021 23:09-0400 Body temperature 98.9 [degF] [facility] Work Phone: 08-23-2021 23:09-0400 Body weight 65.77 kg [facility] Work Phone: 09-01-2016 10:18-0400 BMI (Body Mass Index) 26.95 kg/m2 [facility] Work Phone: 09-01-2016 10:18-0400 BP Diastolic 80 mm[Hg] [facility] Work Phone: 09-01-2016 10:18-0400 BP Systolic 140 mm[Hg] [facility] Work Phone: 09-01-2016 10:18-0400 Height 156.21 cm Stacie Santy [facility] Work Phone: 09-01-2016 10:18-0400 Pulse (Heart Rate) 64 /min Stacie Madera [facility] Work Phone: 09-01-2016 10:18-0400 Respiratory Rate 16 /min Stacie Madera [facility] Work Phone: 09-01-2016 10:18-0400 Weight 65.77 kg Stacie Madera [facility] Work Phone: 09-03-2015 10:54-0400 BMI (Body Mass Index) 25.28 kg/m2 [facility] Work Phone: 09-03-2015 10:54-0400 BP Diastolic 64 mm[Hg] Bianca Jacob RN [facility] Work Phone: 09-03-2015 10:54-0400 BP Systolic 136 mm[Hg] Bianca Jacob RN [facility] Work Phone: 09-03-2015 10:54-0400 BSA (Body Surface Area) 1.61 m2 Bianca Jacob RN [facility] Work Phone: 09-03-2015 10:54-0400 Pulse (Heart Rate) 60 /min [facility] Work Phone: 09-03-2015 10:54-0400 Respiratory Rate 16 /min [facility] Work Phone: 09-03-2015 10:54-0400 Weight 61.69 kg Bianca Jacob RN [facility] Work Phone: 02-09-2014 15:00-0500 Heart rate 68 /min Evin Mu [facility] Work Phone: 05-29-2011 12:06-0500 Body Temperature 97.6 [degF] [facility] Work Phone: 03-05-2011 16:11-0500 Height 156.21 cm [facility] Work Phone: Encounters Encounter Date Encounter Type Care Provider Facility Start: 02-17-2025 ambulatory [facility] Facility: [facility] Start: 01-25-2025 ambulatory [facility] Facility: [facility] Start: 01-25-2025 End: 01-25-2025 ambulatory [facility] Facility:[facility] Start: 12-09-2024 End: 12-09-[address] Corky Mensah MD Work Phone: -[facility] Start: 12-09-2024 End: 12-09-[address] Corky Mensah MD -[facility] Start: 12-09-2024 End: 12-09-[address] Corky [facility]ah MD [facility] Work Phone: Start: 12-09-2024 End: 12-09-[address] Corky Mensah MD Work Phone: [facility] Start: 12-09-2024 End: 12-09-2024 ambulatory Corky Mensah Facility:[facility] Start: 06-08-2024 End: 06-08-[address] Corky Mensah MD [facility] Work Phone: Start: 06-08-2024 End: 06-08-[address] Corky Mensah MD Work Phone: [facility] Work Phone: Start: 06-08-2024 End: 06-08-2024 ambulatory Corky Mensah Facility:[facility] Start: 02-10-2024 End: 03-09-2024 [facility] Start: 07-24-2023 End: 07-24-[address] Corky Mensah Work Phone: [facility] Work Phone: Start: 07-24-2023 End: 07-24-[address] Corky Mensah Work Phone: [facility] Work Phone: Start: 06-08-2023 End: 06-08-[address] Theo Watters Work Phone: [facility] Work Phone: Start: 06-08-2023 End: 06-08-[address] Theo Watters Work Phone: [facility] Work Phone: Start: 04-24-2023 End: 04-24-[address] Theo Watters Work Phone: [facility] Work Phone: Start: 04-22-2023 Non-patient / Non-visit Dr. Theo Watters Work Phone: [facility] Work Phone: Start: 04-22-2023 Non-patient / Non-visit Dr. Theo Watters Work Phone: [facility] Start: 04-21-2023 Non-patient / Non-visit Dr. Theo Watters Work Phone: [facility] Work Phone: Start: 04-21-2023 End: 04-22-2023 Evaluation and management of inpatient Dr. Theo Watters Work Phone: [facility]Intensive Care Unit Work Phone: Start: 04-21-2023 Non-patient / Non-visit Dr. Theo Watters Work Phone: [facility] Work Phone: Start: 04-16-2023 End: 04-16-[address] Theo Watters Work Phone: [facility] Work Phone: Start: 04-07-2023 End: 04-07-[address] Theo Watters Work Phone: [facility] Work Phone: Start: 03-20-2023 End: 03-20-[address] Theo Watters Work Phone: [facility] Work Phone: Start: 03-06-2023 End: 03-06-[address] Theo Watters Work Phone: [facility] Work Phone: Start: 03-06-2023 End: 03-06-[address] Theo Watters Work Phone: [facility] Work Phone: Start: 02-23-2023 End: 02-23-2023 ambulatory [facility] Work Phone: Start: 02-23-2023 End: 02-23-2023 Patient encounter procedure [facility] Work Phone: Start: 09-05-2022 Patient encounter status [facility] Start: 03-27-2022 End: 03-27-2022 ambulatory [facility] Work Phone: Start: 03-27-2022 End: 03-27-2022 Patient encounter procedure [facility]Laboratory, Phy Office 3rd Flr Start: 02-27-2022 End: 03-05-2022 Evaluation and management of inpatient [facility] Start: 02-26-2022 End: 02-27-2022 Emergency department patient visit [facility]Emergency Department Start: 10-31-2021 End: 10-31-2021 Patient encounter procedure [facility] Start: 08-23-2021 End: 08-24-2021 Emergency department patient visit [facility] Start: 07-31-2021 End: 07-31-2021 Patient encounter procedure [facility], Phy Office 3rd Flr Start: 04-15-2021 End: 04-15-2021 Patient encounter procedure [facility] Start: 02-12-2017 End: 02-12-2017 Emergency department patient visit SUZANNE Muñoz [facility] Procedures Date Procedure Procedure Detail Performing [...] Activity Detail Author Start: 04-24-2023 Patient referral [facility] Work Phone: Start: 04-22-2023 Patient discharge [facility] Start: 04-22-2023 Referral to service [facility] Start: 04-21-2023 Following clinical pathway protocol [facility] Start: 04-21-2023 Assessment of risk of venous thromboembolism [facility] Start: 04-21-2023 Catheterization of vein [facility] Start: 04-21-2023 Elevation of head of bed [facility] Start: 04-21-2023 Incentive spirometry [facility] Start: 04-21-2023 Insertion of catheter into peripheral vein [facility] Start: 04-21-2023 Oxygen therapy [facility] Start: 04-21-2023 Patient education [facility] Start: 04-21-2023 End: 04-21-2023 Patient referral to dietitian [facility] Start: 04-21-2023 Physiotherapy of chest [facility] Start: 04-21-2023 Providing care according to standard [facility] Start: 04-21-2023 Provision of activity privileges [facility] Start: 04-21-2023 Referral to occupational therapist [facility] Start: 04-21-2023 Referral to service [facility] Start: 04-21-2023 Bacteria identified in Sputum by Culture [facility] Start: 04-21-2023 Legionella pneumophila Ag [Presence] in Urine [facility] Start: 04-21-2023 Streptococcus pneumoniae antigen assay [facility] Start: 04-21-2023 End: 04-21-2023 [facility] Start: 04-21-2023 Verification routine [facility] Start: 04-21-2023 Admission procedure [facility] Start: 04-20-2023 Blood culture [facility] Start: 04-20-2023 Hospital admission, emergency, from emergency room, medical nature [facility] Start: 04-20-2023 Bacteria identified in Blood by Culture Blood Culture [facility] Start: 04-20-2023 Respiratory Panel (PCR) Respiratory Panel (PCR) [facility] Start: 02-23-2023 Procedure [facility] Start: 10-31-2021 Procedure [facility] Work Phone: Start: 08-31-2017 End: 08-31-2017 Appointment Appointment [facility] Work Phone: Start: 09-01-2016 End: 09-01-2016 Appointment Appointment [facility] Work Phone: Start: 09-01-2016 End: 09-01-2016 Follow Up Appt 1 year Follow Up Appt 1 year [facility] Work Phone: Start: 09-01-2016 End: 09-01-2016 PFM PFM [facility] Work Phone: Start: 09-03-2015 End: 09-03-2015 Follow Up Appt 1 year Follow Up Appt 1 year [facility] Work Phone: Start: 09-03-2015 End: 09-03-2015 PFM PFM [facility] Work Phone: Start: 02-09-2014 End: 02-09-2014 Follow Up Appt 1 year Follow Up Appt 1 year [facility] Work Phone: Start: 02-09-2014 End: 02-09-2014 Follow Up Appt Other Follow Up Appt Other [facility] Work Phone: Start: 02-09-2014 End: 02-09-2014 PFM PFM [facility] Work Phone: Start: 01-26-2013 End: 01-26-2013 Follow Up Appt 1 year Follow Up Appt 1 year [facility] Work Phone: Start: 01-26-2013 End: 01-26-2013 Follow Up Appt Other Follow Up Appt Other [facility] Work Phone: Start: 01-26-2013 End: 01-26-2013 PFM PFM [facility] Work Phone: Start: 03-05-2012 End: 03-05-2012 Follow Up Appt 1 year Follow Up Appt 1 year [facility] Work Phone: Start: 09-01-2011 End: 09-01-2011 Follow Up Appt 6 months Follow Up Appt 6 months [facility] Work Phone: Start: 03-05-2011 End: 03-05-2011 Follow Up Appt 6 months Follow Up Appt 6 months [facility] Work Phone: Start: 03-05-2011 End: 03-06-2011 Gastroenterology Referral Gastroenterology Referral James Heredia, [facility], [address] [place], [address] [facility] Work Phone: Lactic acid measurement [facility] Patient Education ED Cystitis Female Adul t [facility] Work Phone: Patient referral [facility] Work Phone: Procedure [facility] Work Phone: Respiratory pathogen s DNA and RNA panel - Respiratory specimen by TOMAS with probe detection [facility] Immunizations Immunization Date Immunization Notes Care Provider Jessica birch 03-06-2023 influenza, injectabl e, quadrivalent, preservative free Dr. Theo Watters Work Phone: [facility] 12-26-2021 influenza, injectabl e, quadrivalent, preservative free Dr. Corky Mensah MD Work Phone: [facility] 12-14-2020 Influenza High-Dose Quadrivalent Dr. Corky Mensah MD Work Phone: [facility] 05-23-2020 Covid (Moderna) [facility] 04-25-2020 [facility] (Moderna) [facility] 11-20-2019 Influenza virus vaccine [facility] 11-03-2019 influenza, injectabl e, quadrivalent, preservative free Dr. Corky Mensah MD Work Phone: [facility] 07-18-[address] Corky Mensah MD Work Phone: [facility] 01-03-[address] Corky Mensah MD Work Phone: [facility] 12-13-2018 influenza, injectabl e, quadrivalent, preservative free Dr. Corky Mensah MD Work Phone: [facility] 01-08-2017 influenza, high dose seasonal, preservative-free Dr. Corky Mensah MD Work Phone: [facility] 01-13-2007 influenza, injectabl e, quadrivalent, preservative free Dr. Corky Mensah MD Work Phone: [facility] Payers Date Payer Category Payer Self-pay [id number] [facility] [id number] 2014 Unknown SELF PAY INSURANCE [id number] Medicare [id number] 1945 Unknown [id number] Unknown [id number] Unknown [id number] Unknown [id number] Unknown [id number] Unknown [id number] Unknown [id number] Unknown [id number] Unknown [id number] Social History Date Type Detail Facility Start: 12-22-2020 End: 06-08-2023 Tobacco smoking status NHIS Unknown if ever smoked [facility] Start: 07-18-2020 None [facility] Start: 07-18-2020 Homeless [facility] Start: 08-04-2020 Non-smoker [facility] Start: 1945 Sex Assigned At Female W [facility] Start: 08-19-2023 Tobacco smoking stat us NHIS Ex-smoker (finding) [facility] Start: 06-15-2024 Sex Female (finding) [facility] Sex Female [facility] Medical Equipment Procedure Code Equipment Code Equipment [...] Activity Abili ty With Assist of 2 [facility] Work Phone: Mental Status Date Assessment Result Facility 04-22-2023 Cognitive function Voice/Name [facility] Work Phone: 04-20-2023 Cognitive function Voice/Name [facility] Work Phone: Clinical Notes 02-27-2022 to 12-09-2024 Note Date & Type Note Facility 12-09-2024 Evaluation note Diagnosis Onset Date Resolution Hematuria acute November 12:51pm History of hip fracture acute S eptember 2024 12:51pm Borderline diabetes chronic Septe mber 2024 12:51pm Depression chronic November 12:51pm Osteoporosis chronic December 092024 12:51pm [facility] Work Phone: 1(351) 272-829009-19-2025 [facility] [address] [place] [address] [place] [address] OFFICE VISIT Date of Service: 12/09/24 MR#: [id number] Acct: [id number] Name: CARL LOUIS Rep #: [id number] : 1945 Provider: Dr. Meagan Mensah MD Age/Sex: 79/F Location[facility] [facility] Status: Signed Intake Vital Signs 06/08/24 13:56 [...] had right hip surgery post fall in [place], pt requesting ortho referral [facility] Medical History (Updated 12/09/24 @ 16:34 by [...] the patient was visiting her daughter in [place],who is undergoing cancer treatment. The fall happened [...] surgery which was uneventful. Surgery was in [place]. Continue rehabilitation with a new referral for [...] calcium supplements. This note was generated with ClearAppation software. It may contain incorrectwords, spelling, and [...] Cosigner Signature: Date (if applicable) CC: ~ [facility]03-19-2025 Evaluation note* Diagnosis Onset Date Resolution Status Admit Date Borderline diabetes chronic June 08, 2024 1:48pm Depression chronic June 08 1:48pm Dermatitis chronic June 08 1:48pm GERD (gastroesophageal reflu x disease) chronic June 08, 2024 1:48pm Hypertension chronic June 08, 2024 1:48pm Osteoporosis chronic June 08, 2024 1:48pm [facility] Work Phone: 1(966) 782-946601-31-2024 Discharge summary Author Fransisco Barroso [facility] April 22, 2023 12:14pm Note Date/Time April 22, 2023 1 2:12pm [facility] Medical Records Department [address] [address] Instructions for Home/Discharge Instructions 04/22/23 1211 MR#: [id number] Acct: [id number] Name: CARL LOUIS Rep #:[id number] 6 : 1945 77 From: Fransisco Barroso [...] (Reason: shortness of breath or wheezing) zoledronic mcxn-tavmjldy-eeelc [Reclast] 5 mg/100 mL piggyback IV .QYEAR calcium carbonate [Calcium 600] 600 mg calcium (1,500 mg) tablet 600 mg PO DAILY Prolia 60 mg/mL syringe 60 mg subcut [id number] Qty: 1 2RF Referrals / Follow Up: Corky Mensah MD [Primary Care Provider] - See Referral Note (In 2 to 3 weeks) Disposition Disposition (needs filled in before D/C Order can be placed): Home, Self Care 04/22/23 1214<Electronically signed by Fransisco Barroso DO>Fransisco Barroso DO CC: Dr. Corky Mensah MD; Dr. Mariella Harris DO ~ Signed [facility] Work Phone: 1(636) 777-256601-30-2024 Progress note Author Fransisco Barroso [facility] April 21, 2023 6:58pm Note Date/Time April 21, 2023 6 :55pm [facility] Medical Records Department [address] [place] [address] Progress Note - Hospitalist 04/21/23 0468 MR#: [id number] Acct: [id number] Name: CARL LOUIS Rep #:[id number] 6 : 1945 77 From: Fransisco Barroso [...] (Auto) 76.5 H, Lymph % (Auto) 16.0 L,Catahoula % (Auto) 6.9, Eos % (Auto) 0.1, [...] Clarity Clear, Urine pH 7.0, Ur Specific [place] 1.010, Urine Protein 15 H, Urine Glucose [...] (Auto) 71.3 H, Lymph % (Auto) 18.0L, Cata[place]oula % (Auto) 9.3, Eos % (Auto) 0.5, [...] 22:26 EST Reading Location ID and State: [id number] / [place] Tel , Service support , Brain CT 04/20/23 21:30 IMPRESSION: Negative head/brain CT without intravenous contrast. [employer]ID[employer] was utilized to assist in identifying pertinent positive findings. Electronically Signed: Michele Casper MD at 22:46 EST , Chest CT 04/20/23 23:23 IMPRESSION: 1. No pneumonia. No other acute disease. 2. Small to moderate pericardial effusion. Large hiatal hernia. 3. Ancillary findings as above. Electronically Signed: Michele Casper MD at 0:32 EST Reading Location ID and State: [employer] / [place] Tel , Service support , Physical Exam Const alert, oriented x3, [...] 35- minutes Charges/Coding Visit Charges Inpatient E&M: 80484 Subs Hosp L2 04/21/23 4926 <Electronically signed by Fransisco Barroso DO> Cosigner Signature (if applicable): CC: ~ Signed [facility] Work Phone: 1(468) 320-782301-30-2024 History and physical note Author Mariella Harris [facility] April 21, 2023 12:48am Note Date/Time April 20, 2023 1 1:24pm [facility] Medical Records Department [address] [place] [address] H&P Exam - Hospitalist 04/20/23 2318 MR#: [id number] Acct: [id number] Name: CARL LOUIS Rep #:[id number] 4 : 1945 77 From: Mariella Harris DO PCP: Dr. Corky Mensah MD Status:A DM IN Location: ICU CVICU20 4-1 HPI - General General Date of Admission: 04/21/23 Date of Service: 04/21/23 Chief Complaint: Fatigue/generalized weakness HPI Narrative CARL LOUIS, is a 77 F who presented to the emergency department at [facility] on 04/20/2023 with a chief complaint of [...] identified and request for admission was made. [facility] Medical History Anemia Anxiety Arthritis Bladder disease [...] mg/mL subcutaneous syringe (Prolia) 60 mg subcut [id number] #1 mL 03/20/23 [Rx Last Taken Unknown] [...] (Auto) 76.5 H, Lymph % (Auto) 16.0 L,Catahoula % (Auto) 6.9, Eos % (Auto) 0.1, [...] Clarity Clear, Urine pH 7.0, Ur Specific [place] 1.010, Urine Protein 15 H, Urine Glucose [...] verified admission Charges/Coding Visit Charges Inpatient E&M: 09136 Init Hosp L2 04/21/23 0048 <Electronically signed by Mariella Harris DO> Cosigner Signature (if applicable): CC: Dr. Corky Mensah MD; Dr. Mariella Harris DO~ Signed [facility] Work Phone: 1([phone]) 911-435401-30-2024 Discharge summary Author Aleksandr Anderson [facility] April 21, 2023 12:41am Note Date/Time April 20, 2023 9 :02pm [facility] Medical Records Department [address] [place] [address] Emergency Department Summary 04/20/23 MR#: [id number] Acct: [id number] Name: CARL LOUIS Rep #:[id number] 9 : 1945 77 From: Aleksandr Conde [...] <JOSE Rivas - Last Filed: 04/20/23 21:31> [facility] Medical History (Updated 04/20/23 @ 23:23 by [...] mg/mL subcutaneous syringe (Prolia) 60 mg subcut [id number] #1 mL 03/20/23 [Rx Last Taken Unknown] [...] 76.5 H Lymph % (Auto) 16.0 L Catahoula % (Auto) 6.9 Eos % (Auto) 0.1 [...] Clarity Clear Urine pH 7.0 Ur Specific [place] 1.010 Urine Protein 15 H Urine Glucose [...] pneumonia, UTI, dehydration, electrolyte abnormality, ACS or [place]. Patient will receive laboratory values, including a [...] Anderson, DO - Last Filed: 04/21/23 00:29> MDM [...] 76.5 H Lymph % (Auto) 16.0 L Catahoula % (Auto) 6.9 Eos % (Auto) 0.1 [...] Clarity Clear Urine pH 7.0 Ur Specific [place] 1.010 Urine Protein 15 H Urine Glucose [...] pneumonia, UTI, dehydration, electrolyte abnormality, ACS or [place]. Patient will receive laboratory values, including a [...] your Primary Care Provider. Call [facility] ([phone]) or report to the closest Emergency Room. Call 911 if necessary. 04/21/23 0041 <Electronically signed by Aleksandr Anderson DO> Cosigner Signature (if applicable): 04/20/23 213 <Electronically signed by Jose E Castro CIRCUS TRAINER-C> CC: Dr. Corky Mensah MD ~ Signed [facility] Work Phone: 1(414) 290-774601-29-2024 Discharge summary Author Aleksandr Anderson [facility] April 21, 2023 12:41am Note Date/Time April 20, 2023 9 :02pm [facility] Medical Records Department [address] [place] [address] Emergency Department Summary 04/20/23 MR#: [id number] Acct: [id number] Name: CARL LOUIS Rep #:[id number] 9 : 1945 77 From: Aleksandr Conde [...] She continues to have fever and chills. [facility] <JOSE Rivas - Last Filed: 04/20/23 21:31> [facility] Medical History (Updated 04/20/23 @ 23:23 by [...] mg/mL subcutaneous syringe (Prolia) 60 mg subcut [id number] #1 mL 03/20/23 [Rx Last Taken Unknown] [...] Oxygen Delivery Method Oxygen Flow Rate (L/min) [facility] <Jose E PateJOSE narayanan - Last Filed: 04/20/23 21:31> [facility] [...] 76.5 H Lymph % (Auto) 16.0 L Catahoula % (Auto) 6.9 Eos % (Auto) 0.1 [...] Clarity Clear Urine pH 7.0 Ur Specific [place] 1.010 Urine Protein 15 H Urine Glucose [...] pneumonia, UTI, dehydration, electrolyte abnormality, ACS or [place]. Patient will receive laboratory values, including a [...] Anderson, DO - Last Filed: 04/21/23 00:29> MDM [...] 76.5 H Lymph % (Auto) 16.0 L [place]oula % (Auto) 6.9 Eos % (Auto) 0.1 [...] Clarity Clear Urine pH 7.0 Ur Specific [place] 1.010 Urine Protein 15 H Urine Glucose [...] pneumonia, UTI, dehydration, electrolyte abnormality, ACS or TX. Patient will receive laboratory values, including a [...] your Primary Care Provider. Call [facility] ([phone]) or report to the closest Emergency Room. Call 911 if necessary. 04/21/23 0041 <Electronically signed by Aleksandr Anderson DO> Cosigner Signature (if applicable): 04/20/23 213 <Electronically signed by Jose E Castro CIRCUS TRAINER-C> CC: Dr. Corky Mensah MD ~ Signed [facility] Work Phone: 1(229) 642-830512-14-2022 NoteHospitalist Discharge Summary Carl Louis : 1945 [...] HYDROcodone-acetaminophen 5-325 MG tablet Commonly known as: Gen[place] warfarin 1 MG tablet Commonly known as: [...] Complexity: follow up within 7-14 calendar days (72780) [x] Severe Complexity: follow up within 7 calendar days (90865) Follow up Testing, Pending results or Referrals [...] MD Division of Hospitalist Medicine Inpatient Medical Services/[facility] 03/05/2022[facility]12-13-2022 NoteHospitalist Progress Note 03/04/2022 Subjective: Admit Date: 02/27/2022 PCP: No primary care provider on file. Room#: H-8866/H-1675 A Interval History: No overnight issues. Up [...] Bianca Clark DO, 40 mEq at 03/04/22 08 pregabalin (Lyrica) capsule 50 mg, 50 mg, Oral, TID, Bianca Clark DO, 50 mg at 03/04/22 0842 sennosides (Senokot) tablet 17.2 mg, 2 tablet, Oral, BID, Peter Ruthie, HYDRO TECHNICIAN - DIRECTOR PHARMACOVIGILANCE, 17.2 mg at 03/04/22 0842 simethicone (Mylicon) drops 40 mg, 40 mg, Oral, PRN, Bianca Clark, DO sodium chloride 0.9 % infusion, 5-250 mL/hr, IntraVENous, PRN, Bianca Clark, DO Assessment Thoracic epidural hematoma T3-T8 Factor [...] MD Division of Hospitalist Medicine Inpatient Medical Services/[facility]12-08-2022 Note Attestation signed by Kristin Saenz at [...] didn't), for which patient was transferred to [facility] ICU. PLAN: 1. Neuro/Spine: 13cm spinal epidural [...] Renal: normal renal function, allen placed at [place] [facility] --> discontinue allen 6. Hem: Factor V Leiden on coumadin, history of remote DVT/PE - received Kcentra at [facility] --> INR 2 -> 1.1 - will [...] MD Division of Trauma Department of Surgery [facility] Pager: [phone] rKistin Saenz MD Division of Trauma Department of Surgery [facility] Pager: [phone] [facility] H&P 02/27/2022 6:12 AM Attending: Dr. Ying Level of Initial Activation: Direct Admit Upgraded: No To:N/A Mechanism of Arrival:Transfer from [place] [facility] ED Chief Complaint: back pain History of Traumatic Injury: 76 year old female with history of factor V Leiden, hx of DVT and PE on coumadin presents as an emergent transfer from [place] [facility] ED to [facility] ICU for 13 cm epidural hematoma [...] experienced any of the following: fever, cough, ncaoikecs-ij-qegfzo, myalgias, loss of taste/smell, diarreha/GI symptoms? No [...] Highest education level: No (more content not included)...[facility] SHSEvaluation noteNo assessment information availableWMercy Health West Hospital Work Phone: Evaluation note* Diagnosis Onset Date Resolution Status Flu vaccine need acute GERD (gastroesophageal reflux disease) chronic Left hip pain chronic Osteoporosis chronic Seborrheic dermatitis chroni c [facility] Work Phone: Evaluation note* Diagnosis Onset [...] Generalized weakness acute Hypoxia acute Leukocytosis acute [facility] Work Phone: evaluation note* Diagnosis Onset Date Resolution Status Flu [...] acute Borderline diabetes chronic Depression chronic Osteoporosis [facility] Work Phone: evaluation note* Diagnosis Onset Date Resolution Status COVID-19 acute URI (upper respiratory infection) acute Chronic anticoagulation acut e Acute hypoxemic respiratory failure resolved COVID-19 acute Diplopia acute Acute hypoxemic respiratory failure resolved Chronic anticoagulation acut e Nocturnal hypoxemia acute Borderline diabetes chronic Depression chronic Osteoporosis chronic Suprapubic fullness acute [facility] Work Phone: evaluation note* Diagnosis Onset Date Resolution Status Admit Date Hematuria acute November 12:51pm History of hip fracture acute S eptemb2024 12:51pm Borderline diabetes chronic Septe mb2024 12:51pm Depression chronic November 12:51pm Osteoporosis chronic December 092024 12:51pm [facility] Work Phone: History and physical note Author Mariella Harris [facility] April 21, 2023 12:48am Note Date/Time April 20, 2023 1 1:24pm [facility] Medical Records Department [address] [place] [address] H&P Exam - Hospitalist 04/20/23 9138 MR#: [id number] Acct: [id number] Name: CARL LOUIS SANTOS Rep #:[id number] 4 : 1945 77 From: Mariella Harris DO PCP: Dr. Corky Mensah MD Status:A DM IN Location: ICU CVICU20 4-1 HPI - General General Date of Admission: 04/21/23 Date of Service: 04/21/23 Chief Complaint: Fatigue/generalized weakness HPI Narrative CARL LOUIS, is a 77 F who presented to the emergency department at [facility] on 04/20/2023 with a chief complaint of [...] identified and request for admission was made. [facility] Medical History Anemia Anxiety Arthritis Bladder disease [...] mg/mL subcutaneous syringe (Prolia) 60 mg subcut [id number] #1 mL 03/20/23 [Rx Last Taken Unknown] [...] (Auto) 76.5 H, Lymph % (Auto) 16.0 L,Catahoula % (Auto) 6.9, Eos % (Auto) 0.1, [...] Clarity Clear, Urine pH 7.0, Ur Specific [place] 1.010, Urine Protein 15 H, Urine Glucose [...] verified admission Charges/Coding Visit Charges Inpatient E&M: 48370 Init Hosp L2 04/21/23 0048 <Electronically signed by Mariella Harris DO> Cosigner Signature (if applicable): CC: Dr. Corky Mensah MD; Dr. Mariella Harris DO~ Signed [facility] Work Phone: Hospital Discharge instructionsAmbulatory Orders* Orthopedics Location: None Selected * PT Referral Location: None Selected * Urology Location: None Selected [facility] Work Phone: Progress note Author Corky Mensah [facility] Note Date/Time December 09, 2024 1:32pm [facility] [address] [place] [address] [place] [address] OFFICE VISIT Date of Service: 12/09/24 MR#: [id number] Acct: [id number] Name: CARL LOUIS Rep #: 25 : 1945 Provider: Dr. Meagan Mensah MD Age/Sex: 79/F Location: [facility] Status: Signed Intake Vital Signs 06/08/24 13:56 09/19/25 12:59 Height 4 ft 10 in 4 [...] had right hip surgery post fall in [place], pt requesting ortho referral [facility] Medical History (Updated 12/09/24 @ 16:34 by [...] the patient was visiting her daughter in [place], who is undergoing cancer treatment. The fall [...] surgery which was uneventful. Surgery was in [place]. Continue rehabilitation with a new referral for [...] calcium supplements. This note was generated with ClearAppation software. It may contain incorrectwords, spelling, and [...] Cosigner Signature: Date (if applicable) CC: ~ [facility] Work Phone: Reason for referral (narrative)No reason for referral information availableWMercy Health West Hospital Work Phone: Summary Purpose Family History [...] Date/ Time Advance Directives Yes October 13 14 9:59am Living Will Yes December 22 12:17pm Power of Vacuum Frame Operator Yes December 22 12:17pm Advance Directive Response Recorded Date/ Time Advance Directives Yes October 13 9:59am Living Will No August 23, 2021 1 1:30pm Power of Vacuum Frame Operator No August 23, 2021 11:30pm Advance Directive Response Recorded Date/ Time Advance Directives Yes October 13 8:59am Living Will No February 26 9:39pm Power of Vacuum Frame Operator No February 26, 2022 9:39pm Advance Directive Response Recorded Date/ Time Name of Medical Power of Vacuum Frame Operator STACIE LOCKE April 20, 2023 9:47pm Advance Directives Yes October 13 8:59am Living Will Yes April 20 9:47pm Power of Vacuum Frame Operator Yes April 20, 2023 9:47pm Advance Directive Response Recorded Date/ Time Name of Medical Power of Vacuum Frame Operator Stacie Locke - daughter April 21, 2023 1:14am Advance Directives Yes October 13 8:59am Living Will Yes April 21 1:14am Power of Vacuum Frame Operator Yes April 21, 2023 1:14am Advance Directive Response Recorded Date/ Time Name of Medical Power of Vacuum Frame Operator Stacie Locke - daughter April 21, 2023 2:14am Advance Directives Yes October 13 9:59am Living Will Yes April 21 2:14am Power of Vacuum Frame Operator Yes April 21, 2023 2:14am Advance Directive Response Recorded Date/ Time Living Will Yes August 19, 2023 1 :38pm Do you have a Healthcare Power of Vacuum Frame Operator? Yes August 19, 2023 1:38pm Advance Directives [...] WITH COVID FEBRILE ILLNESS CAP/HYPOXIA CAP/HYPOXIA CAP/HYPOXIA [facility] fu/discuss oxygen use at night 3 M FU Reason for Visit Flu vaccine need GERD (gastroesophageal reflux disease) Left hip pain Osteoporosis Seborrheic dermatitis Osteoporosis COVID-19 URI (upper respiratory infection) Chronic anticoagulation Acute hypoxemic respiratory failure COVID-19 Diplopia Acute hypoxemic respiratory failure Chronic anticoagulation Nocturnal hypoxemia Borderline diabetes Depression Osteoporosis Chief Complaint FEVER/COUGH STRUGGLING WITH COVID FEBRILE ILLNESS CAP/HYPOXIA CAP/HYPOXIA CAP/HYPOXIA [facility] er fu/discuss oxygen use at night 3 [...] 1:4 8pm GERD (gastroesophageal reflux disease) M 2024 1:48pm Hypertension June 08, 2024 1:4 [...] section and content) DATE CREATED AUTHOR 09/15/2017 [facility] DATE CREATED AUTHOR AUTHOR'S ORGANIZ ATION 03/12/2022 [facility] DATE CREATED AUTHOR AUTHOR'S ORGANIZ ATION 03/12/2024 [facility] DATE CREATED AUTHOR AUTHOR'S ORGANIZ ATION 02/01/2025 [facility] Goals (unrecognized section and content) Goals may [...] Dr. Corky Mensah MD Primary Care P bin, Attending Provider, Referring Provider Active Team Status: [...] Primary Care Provider Active Dr. Aleksandr Anderson , Emergency Provider Active Dr. Mariella Harris , DO Admit Provider, Other Provider Ac tive Dr. Fransisco Barroso , DO Attending Provider, Other Pro vider Active Team Status: Inactive Member Role Status Dates Dr. Corky Mensah MD Primary Care Provider Active Dr. Aleksandr Anderson , Emergency Provider Active Dr. Mariella Harris , DO Admit Provider, Other Provider Ac tive Dr. Fransisco Barroso , DO Attending Provider Active Team Status: Active Member Role Status Dates Dr. Corky Mensah MD Primary Care Provider Active Dr. Aleksandr Anderson DO Referring Provider, Emergency P rovider Active Dr. Mariella Harris , DO Admit Provider, Att ending Provider, Other Provider Active Team Status: Active Member Role Status Dates Dr. Corky Mensah MD Primary Care Provider Active Dr. Radha Delarosa MD Attending Provider Active Dr. Fransisco Barroso , Referring Provider Active Team Status: Inactive Member [...] BE BASED ON THE PRIMARY CLINICAL RECORDS. [facility]. provides no warranty or guarantee of the accuracy or completeness of information in this document.
--- NOTE | 2025-02-17 14:28 | CT_ITS ---
PROCEDURE: ABDOMEN/PELVIS WITHOUT CONT 02/17/2025 REASON FOR EXAM: GROSS HEMATURIA TECHNIQUE: Procedure Code: CTABDPEL Modality: CT Procedure: ABDOMEN/PELVIS WITHOUT CONT Noncontrast technique limits evaluation of the abdominal and pelvic viscera. Coronal and Sagittal reconstruction series were provided. One or more dose reduction techniques were used (e.g., Automated exposure control, adjustment of the mA and/or kV according to patient size, use of iterative reconstruction technique). RADIATION DOSE SUMMARY: CTDlvol: 8.98 mGy DLP: 403.71 mGycm COMPARISON: CT abdomen and pelvis 08/24/2021 FINDINGS: Lung bases: Clear. Atherosclerotic calcifications of the coronary arteries. Hiatal hernia measures 8.5 x 11 cm. Liver: Unremarkable. Gallbladder: Unremarkable. No biliary dilation. Spleen: No splenomegaly. A splenule measures 2 cm. Pancreas: Unremarkable. Adrenals: Unremarkable. Kidneys: Perinephric fat stranding. No hydronephrosis. No nephrolithiasis. Bladder: Unremarkable. Reproductive Organs: Unremarkable. Bowel: Extensive colonic diverticulosis with no evidence of acute diverticulitis. Appendix: No evidence of acute appendicitis. Lymph nodes: No lymphadenopathy. Vasculature: Atherosclerotic calcifications. No aneurysm. Peritoneum / Retroperitoneum: No free air or free fluid. Bones: Multilevel degenerative of the lumbar spine. Multiple vertebroplasties. Osteopenia which limits evaluation. Status post total right hip replacement. CT/Abdomen/Pelvis without Cont IMPRESSION: Perinephric fat stranding without hydronephrosis or nephrolithiasis. Correlati on with urinalysis is recommended. Reading Location: [id number]
== END | disposition home or self-care (01) ==
LOC: CT 14:16
PROVIDERS: PCP Internal Medicine; Referring Provider Urology; Visit Provider Urology
DX: R31.0 Gross hematuria (principal)
CPT/HCPCS: 74176

== ENCOUNTER → 2025-03-10 | Outpatient (CLI) | payer MEDICARE, BC, SELFPAY ==
--- NOTE | 2025-03-10 | CYSPIN_PTH ---
PATIENT: CARL MONTGOMERY [facility] U[facility][id number] AGE/SX: 79/F ROOM: RE03/10/[address]: Dr. Katya Mcleod MD : 1945 BED: DIS: 03/10/2025 SPEC #: [id number] RECD: 03/10/25 15:44 STATUS: STACY REQ #: [id number] JAY: 03/10/25 00:[address]: Katya Mcleod DEPT: CYTOLOGY RECD BY: Mars Borja ENTERED: 03/13/25 11:06 SP TYPE: CYSPIN FL OTHR DR: Dr. Corky Mensah MD Tissues: A - Urine Procedures: Pap Stain (control) Special Stain Group II Cytospin Fluid HEADER OPERATION: Not noted PRE-OP DIAGNOSIS: Gross hematuria TISSUE SUBMITTED: A- Urine for cytology- voided DIAGNOSIS CYTOLOGY A. Urine, voided: No malignant cells identified. Predominantly squamous cells present. CYTOLOGY STUDY Slides are reviewed. CYTOLOGY GROSS A. Received is 24 ml of hazy-yellow fluid labeled with the patient's name and and designated per the requisition as urine. Submitted for cytology preparation. 03/13/2025 CPT: 21489
[2025-03-10 17:00] LABS: Cytology, Body Fluid / CSF SEE PATHOLOGY REPORT
== END | disposition home or self-care (01) ==
LOC: LABSPEC 16:18
PROVIDERS: PCP Internal Medicine; Referring Provider Urology; Visit Provider Urology
DX: R31.0 Gross hematuria (principal)
CPT/HCPCS: 88108; 88313